=== PATIENT | male | born 1955 | race Caucasian/White ===

== ENCOUNTER 2020-06-04 10:32 | Inpatient (IN) | payer BC, MEDICARE ==
[2020-06-04] VITALS (7 sets, daily range): BP systolic 97–133; BP diastolic 69–95
[~2020-06-04] VITALS: Ht 172.7 cm; Wt 106.5 kg
--- NOTE | 2020-06-04 10:40 | NUR ---
PT DENIES FALL, STATES REMEBERS EVENTS TO LYING DOWN, DENIES HEAD PAIN OR NECK PAIN AT THIS X. NO ABRASIONS NOTED
[2020-06-04 11:03] LABS: BASOPHILS % (AUTO) 0 % (0-10); EOSINOPHILS % (AUTO) 0 % (0-10)
[2020-06-04 11:05] LABS: HEMATOCRIT 40 % (40-54); HEMOGLOBIN 13.4 g/dL (13.3-17.7); LYMPHOCYTES # (AUTO) 0.8 10^3/uL (1.0-4.0); LYMPHOCYTES % (AUTO) 13 % (12-44); MEAN CORPUSCULAR HEMOGLOBIN 31 pg (25-34); MEAN CORPUSCULAR HGB CONC 33 g/dL (32-36); MEAN CORPUSCULAR VOLUME 92 fL (80-99); MEAN PLATELET VOLUME 9.6 fL (9.0-12.2); MONOCYTES # (AUTO) 0.7 10^3/uL (0.0-1.0); MONOCYTES % (AUTO) 10 % (0-12); NEUTROPHILS # (AUTO) 4.8 10^3/uL (1.8-7.8); NEUTROPHILS % (AUTO) 76 % (42-75); PLATELET COUNT 136 10^3/uL (130-400); WHITE BLOOD COUNT 6.3 10^3/uL (4.3-11.0)
[2020-06-04] MEDS ORDERED: RT-ALBUTEROL INHALER HFA (VENTOLIN HFA) 18 GM IH ONE (11:05)
[2020-06-04] MEDS ORDERED: ACETAMINOPHEN 500 MG TAB (TYLENOL) ONE (11:05)
[2020-06-04] MEDS ORDERED: NS IV 1000 ML 1,000 ML ONE ×2 (11:05→12:57)
[2020-06-04] MEDS ORDERED: LACTATED RINGERS 1,000 ML IV ONE (11:08)
[2020-06-04 11:11] LABS: ALBUMIN 3.7 GM/DL (3.2-4.5); INR 1.2 (0.8-1.4); POTASSIUM 3.8 MMOL/L (3.6-5.0); PROTHROMBIN TIME PATIENT 15.6 SEC (12.2-14.7)
[2020-06-04 11:12] LABS: CALCIUM 8.3 MG/DL (8.5-10.1)
[2020-06-04 11:14] LABS: TOTAL PROTEIN 7.5 GM/DL (6.4-8.2)
[2020-06-04 11:15] LABS: BILIRUBIN,TOTAL 1.1 MG/DL (0.1-1.0)
[2020-06-04] MEDS ORDERED: ACETAMINOPHEN 500 MG TAB (TYLENOL) PO ONE (11:15)
[2020-06-04 11:17] LABS: CREATININE SERUM 1.84 MG/DL (0.60-1.30)
[2020-06-04 11:20] LABS: MAGNESIUM 1.8 MG/DL (1.6-2.4)
[2020-06-04] MEDS ORDERED: ASPIRIN 81 MG CHEW (CHILDREN'S ASA) PO ONE (12:15)
[2020-06-04] MEDS ORDERED: ENOXAPARIN 100 MG/1 ML (LOVENOX) SYR SC ONE (12:15)
[2020-06-04] MEDS ORDERED: cefTRIAXone FOR IV USE 1,000 MG in WATER (STERILE) FOR INJECTION 10 ML IV ONE (12:15)
--- NOTE | 2020-06-04 12:25 | ED General ---
General Chief Complaint: Cough/Cold/Flu Symptoms Stated Complaint: NECK/BACK PAIN;COUGH Nursing Triage Note: PT BROUGHT IN BY [facility] FROM WORK WITH COMPLAINT OF FEVER, COUGH. PT WAS FOUND LAYING ON PLAYGROUND BY SCHOOL STAFF. PT STATES HE HAS HAD A COUGH SINCE SUNDAY. 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 He was reportedly unresponsive at that time. The school nurse found him to have an oxygen saturation of 88 percent and a temperature of 103. EMS reports that his oxygen saturations were in the 90s for them and he was alert and conversational during their assessment. Patient had been using a ladder just prior to the incident. However, he reports that he lowered himself to the ground and is adamant that he did not fall. He denies any pain except back pain which she reports as recurrent and chronic. He is noted to have atrial fibrillation on the monitor. He is not aware of any history of atrial fibrillation. He denies any known health problems and he has not seen a doctor for many years. He takes no medications. 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 He is febrile and short of breath. EMS reported he had had nausea and vomiting throughout the week, but patient did not confirm this. Allergies and Home Medications Allergies Coded Allergies: No Known Drug Allergies (Unverified , 06/04/20) Patient Home Medication List Home Medication List Reviewed: Yes Review of Systems Review of Systems Constitutional: see HPI EENTM: no symptoms reported Respiratory: see HPI Cardiovascular: no symptoms reported Gastrointestinal: see HPI Genitourinary: no symptoms reported Musculoskeletal: see HPI Skin: no symptoms reported Psychiatric/Neurological: See HPI Hematologic/Lymphatic: No Symptoms Reported Immunological/Allergic: no symptoms reported Past A[place]oz[place]-Urznza-[place] Hx Past Med/Social Hx: Reviewed Nursing Past Med/Soc Hx Patient Social History Alcohol Use: Denies Use Recreational Drug Use: No Smoking Status: Never a Smoker Recent Foreign Travel: No Contact w/Someone Who Travel: No Recent Infectious Disease Expo: No Recent Hopitalizations: No Immunizations Up To Date Tetanus Booster (TDap): Unknown Seasonal Allergies Seasonal Allergies: No Past Medical History Surgeries: No Respiratory: No Cardiac: No Neurological: No Genitourinary: No Gastrointestinal: No Musculoskeletal: No Endocrine: No HEENT: No Cancer: No Psychosocial: No Integumentary: No Blood Disorders: No Physical Exam-Suspected Sepsis Physical Exam Vital Signs Vital Signs - First Documented 06/04/20 10:38 Temp 38.6 Pulse 85 Resp 32 B/P (MAP) 143/85 (104) Pulse Ox 89 O2 Delivery Nasal Cannula Capillary Refill : Less Than 3 Seconds Blood Pressure Mean: 104 Height, Weight, BMI Height: '" Weight: lbs. oz. 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 Norm as Tested Skin: normal color, diaphoresis (marjan is moist from prior diaphoresis) Focused Exam Reason for ruling out sepsis: Sepsis possible Possible Source: Pulmonary Lactate Level 06/04/20 10:55: Lactic Acid Level 1.27 Time of Focused Exam: 12:35 Respiratory: Accessory Muscle Use, Decreased Breath Sounds Cardiovascular: Regular Rate, Rhythm, No Edema, No Murmur, Normal Peripheral Pulses Capillary Refill: Less Than 3 Seconds Skin: normal color, warm/dry Lactic Acid Level Laboratory Tests Test 06/04/20 10:55 Lactic Acid Level 1.27 MMOL/L (0.50-2.00) Within 3hrs of presentation: Admin fluids, Admin ABX, Blood cultures prior to ABX's, Focus exam, Lactate level Progress/Results/Core Measures Suspected Sepsis Recent Fever Within 48 Hours: Yes Infection Criteria Present: None New/Unexplained Altered Menta: No Sepsis Screen: No Definite Risk SIRS Temperature: Pulse: 85 Respiratory Rate: 32 Laboratory Tests 06/04/20 10:45: White Blood Count 6.3 Blood Pressure 143 /85 Mean: 104 9/25/20 10:55: Lactic Acid Level 1.27 Laboratory Tests 06/04/20 10:45: Creatinine 1.84H, INR Comment 1.2, Platelet Count 136, Total Bilirubin 1.1H Results/Orders Lab Results Laboratory Tests Test 06/04/20 10:45 06/04/20 10:55 06/04/20 12:35 Range/Units White Blood Count 6.3 4.3-11.0 10^3/uL Red Blood Count 4.35 4.30-5.52 10^6/uL Hemoglobin 13.4 13.3-17.7 g/dL Hematocrit 40 40-54 % Mean Corpuscular Volume 92 80-99 fL Mean Corpuscular Hemoglobin 31 25-34 pg Mean Corpuscular Hemoglobin Concent 33 32-36 g/dL Red Cell Distribution Width 11.9 10.0-14.5 % Platelet Count 136 130-400 10^3/uL Mean Platelet Volume 9.6 9.0-12.2 fL Immature Granulocyte % (Auto) 1 % Neutrophils (%) (Auto) 76 H 42-75 % Lymphocytes (%) (Auto) 13 12-44 % Monocytes (%) (Auto) 10 0-12 % Eosinophils (%) (Auto) 0 0-10 % Basophils (%) (Auto) 0 0-10 % Neutrophils # (Auto) 4.8 1.8-7.8 10^3/uL Lymphocytes # (Auto) 0.8 L 1.0-4.0 10^3/uL Monocytes # (Auto) 0.7 0.0-1.0 10^3/uL Eosinophils # (Auto) 0.0 0.0-0.3 10^3/uL Basophils # (Auto) 0.0 0.0-0.1 10^3/uL Immature Granulocyte # (Auto) 0.0 0.0-0.1 10^3/uL Prothrombin Time 15.6 H 12.2-14.7 SEC INR Comment 1.2 0.8-1.4 Activated Partial Thromboplast Time 32 24-35 SEC D-Dimer 3.61 H 0.00-0.49 UG/ML Sodium Level 133 L 135-145 MMOL/L Potassium Level 3.8 3.6-5.0 MMOL/L Chloride Level 98 98-107 MMOL/L Carbon Dioxide Level 23 21-32 MMOL/L Anion Gap 12 5-14 MMOL/L Blood Urea Nitrogen 18 7-18 MG/DL Creatinine 1.84 H 0.60-1.30 MG/DL Estimat Glomerular Filtration Rate 37 BUN/Creatinine Ratio 10 Glucose Level 124 H 70-105 MG/DL Calcium Level 8.3 L 8.5-10.1 MG/DL Corrected Calcium 8.5 8.5-10.1 MG/DL Magnesium Level 1.8 1.6-2.4 MG/DL Total Bilirubin 1.1 H 0.1-1.0 MG/DL Aspartate Amino Transf (AST/SGOT) 75 H 5-34 U/L Alanine Aminotransferase (ALT/SGPT) 23 0-55 U/L Alkaline Phosphatase 44 40-136 U/L Lactate Dehydrogenase 316 H 125-220 U/L Troponin I 0.084 H <0.028 NG/ML C-Reactive Protein High Sensitivity 13.56 H 0.00-0.50 MG/DL B-Type Natriuretic Peptide 109.9 H <100.0 PG/ML Total Protein 7.5 6.4-8.2 GM/DL Albumin 3.7 3.2-4.5 GM/DL Procalcitonin 0.18 H <0.10 NG/ML Serum Alcohol < 10 <10 MG/DL Coronavirus 2019 (SHAHLA) Negative Negative Lactic Acid Level 1.27 0.50-2.00 MMOL/L Urine Color YELLOW Urine Clarity CLEAR Urine pH 5.5 5-9 Urine Specific [place] 1.025 H 1.016-1.022 Urine Protein 1+ H NEGATIVE Urine Glucose (UA) NEGATIVE NEGATIVE Urine Ketones TRACE H NEGATIVE Urine Nitrite NEGATIVE NEGATIVE Urine Bilirubin NEGATIVE NEGATIVE Urine Urobilinogen 1.0 < = 1.0 MG/DL Urine Leukocyte Esterase NEGATIVE NEGATIVE Urine RBC (Auto) 3+ H NEGATIVE Urine RBC 2-5 H /HPF Urine WBC RARE /HPF Urine Squamous Epithelial Cells RARE /HPF Urine Crystals PRESENT H /LPF Urine Amorphous Sediment MOD MAGNO URATES H /LPF Urine Bacteria TRACE /HPF Urine Casts PRESENT /LPF Urine Granular Casts RARE /LPF Urine Mucus NEGATIVE /LPF Urine Culture Indicated NO Urine Opiates Screen NEGATIVE NEGATIVE Urine Oxycodone Screen NEGATIVE NEGATIVE Urine Methadone Screen NEGATIVE NEGATIVE Urine Propoxyphene Screen NEGATIVE NEGATIVE Urine Barbiturates Screen NEGATIVE NEGATIVE Ur Tricyclic Antidepressants Screen NEGATIVE NEGATIVE Urine Phencyclidine Screen NEGATIVE NEGATIVE Urine Amphetamines Screen NEGATIVE NEGATIVE Urine Methamphetamines Screen NEGATIVE NEGATIVE Urine Benzodiazepines Screen NEGATIVE NEGATIVE Urine Cocaine Screen NEGATIVE NEGATIVE Urine Cannabinoids Screen NEGATIVE NEGATIVE Micro Results Microbiology 06/04/20 Influenza Types A,B Antigen (KECIA) - Final, Complete My Orders Orders - LORENE MITCHELL MD Cbc With Automated Diff (06/04/20 10:38) Comprehensive Metabolic Panel (06/04/20 10:38) Blood Culture (06/04/20 10:38) Sputum Culture (06/04/20 10:38) Urinalysis (06/04/20 10:38) Urine Culture (06/04/20 10:38) Protime With Inr (06/04/20 10:38) Partial Thromboplastin Time (06/04/20 10:38) Chest 1 View, Ap/Pa Only (06/04/20 10:38) Ed Iv/Invasive Line Start (06/04/20 10:38) Ed Iv/Invasive Line Start (06/04/20 10:38) Vital Signs Adult Sepsis Patie Q15M (06/04/20 10:38) O2 (06/04/20 10:38) Remove Rings In Anticipation O (06/04/20 10:38) Lactic Acid Analyzer (06/04/20 10:38) Procalcitonin (Pct) (06/04/20 10:38) Hs C Reactive Protein (06/04/20 10:38) LDH (06/04/20 10:38) Covid 19 Inhouse Test (06/04/20 10:38) Magnesium (06/04/20 10:40) Troponin I (06/04/20 10:40) Ekg Tracing (06/04/20 10:40) Monitor-Rhythm Ecg Trace Only (06/04/20 10:40) Acetaminophen Tablet (Tylenol Tablet) (06/04/20 11:15) Albuterol Inhaler (Ventolin Hfa) (06/04/20 14:00) Lactated Ringers (Lr 1000 Ml Iv Solution (06/04/20 11:08) Influenza A And B Antigens (06/04/20 11:08) Ns Iv 1000 Ml (Sodium Chloride 0.9%) (06/04/20 11:05) Acetaminophen Tablet (Tylenol Tablet) (06/04/20 11:05) Albuterol Inhaler (Ventolin Hfa) (06/04/20 11:05) BNP (06/04/20 11:19) Coronavirus Sars-Cov-2 So 2018 (06/04/20 11:26) Fibrin Degradation Products (06/04/20 11:47) Alcohol (06/04/20 11:47) Drug Screen Stat (Urine) (06/04/20 11:47) Ceftriaxone For Iv Use (Rocephin For I (06/04/20 12:15) Aspirin Chewable Tablet (Baby Aspirin Ch (06/04/20 12:15) Enoxaparin Injection (Lovenox Injection) (06/04/20 12:15) Medications Given in ED Current Medications Medications Dose Ordered Sig/Scotty Route Start Time Stop Time Status Last Admin Dose Admin Acetaminophen 1,000 mg ONCE ONCE PO 06/04/20 11:15 06/04/20 11:16 DC 06/04/20 11:12 1,000 MG Aspirin 324 mg ONCE ONCE PO 06/04/20 12:15 06/04/20 12:16 DC 06/04/20 12:37 324 MG Ceftriaxone Sodium 1000 mg/ Sterile Water 10 ml @ 200 mls/hr ONCE ONCE IV 06/04/20 12:15 06/04/20 12:17 DC 06/04/20 12:37 200 MLS/HR Enoxaparin Sodium 100 mg ONCE ONCE SC 06/04/20 12:15 06/04/20 12:16 DC 06/04/20 12:37 100 MG Lactated Ringer's 1,000 ml @ 0 mls/hr Q0M ONCE IV 06/04/20 11:08 06/04/20 11:10 DC 06/04/20 11:13 1,000 MLS/HR Vital Signs/I&O 06/04/20 06/04/20 10:38 10:38 Temp 38.6 Pulse 85 Resp 32 B/P (MAP) 143/85 (104) Pulse Ox 89 O2 Delivery Nasal Cannula Room Air Capillary Refill : Less Than 3 Seconds Blood Pressure Mean: 104 Progress Note : Progress Note High-volume fluids were not administered as patient is under investigation for COVID-19 and high volume fluid administration could be harmful in this scenario. Rapid COVID-19 test was negative and the backup test is pending. Severe sepsis or septic shock is not suspected at this time since per calcitonin, lactic acid, pressure, and WBC are normal. Patient was treated with Rocephin as a precaution. Oxygen saturation was maintained by nasal cannula. Albuterol MDI was administered but was not very helpful. A liter of IV fluid was administered. Troponin was elevated. Case was discussed with Dr. Woodson, Dr. Zhu, and Dr. Oden. Lovenox was administered because of significantly e levated d-dimer. Creatinine prohibited CT angiogram for evaluation of PE. Patients is Jackie Jackson [phone]. She was updated from the ER. ECG Initial ECG Impression Date: Jun 04, 2020 Initial ECG Impression Time: 10:50 Initial ECG Rate: 83 Initial ECG Rhythm: A Fib/Flutter Comment Atrial fibrillation with PVC. No ST elevation or depression. Rate controlled. Diagnostic Imaging Diagonstic Imaging: Xray Plain Films/CT/US/NM/MRI: chest Comments Chest x-ray viewed by me and report reviewed. See report below: NAME: CAMMY JACKSON [facility] REC#: [id number] PT STATUS: REG ER : 1955 PHYSICIAN: LORENE MITCHELL MD ADMIT DATE: 06/04/20/ER Draft Date of Exam:06/04/20 CHEST 1 VIEW, AP/PA ONLY INDICATION: Fever and cough. COMPARISON: None. FINDINGS: Single frontal radiographic view of the chest was obtained and demonstrates mild cardiomegaly. Pulmonary vasculature is within normal limits. There is dense consolidation of the right lower lung field. Left lung is clear. There is no large effusion or pneumothorax. Osseous structures show no acute abnormalities. IMPRESSION: 1. Infiltrate within the right lower lung consistent with pneumonia. Follow-up to resolution is recommended. 2. Mild cardiomegaly. Dictated on workstation # [id number] Dict: 06/04/20 1232 Trans: 06/04/20 1235 [id number] [id number] Interpreted by: DICK GARCIA MD Departure Communication (Admissions) Time/Spoke to Admitting Phy: 11:40 Dr. Kandice Oden 11:45 Dr. Zhu 12:10 Impression Primary Impression: New onset atrial fibrillation Additional Impressions: Syncope Qualified Codes: R55 - Syncope and collapse Pneumonia Qualified Codes: J18.9 - Pneumonia, unspecified organism Elevated troponin Renal failure Qualified Codes: N19 - Unspecified kidney failure Person under investigation for COVID-19 Disposition: 09 ADMITTED INPATIENT Condition: Stable Admissions Decision to Admit Reason: Admit from ER (General) Decision to Admit/Date: Jun 04, 2020 Time/Decision to Admit Time: 10:45 LORENE MITCHELL MD Jun 04, 2020 12:25
--- NOTE | 2020-06-04 12:36 | Diagnostic Imaging Report ---
INDICATION: Fever and cough. COMPARISON: None. FINDINGS: Single frontal radiographic view of the chest was obtained and demonstrates mild cardiomegaly. Pulmonary vasculature is within normal limits. There is dense consolidation of the right lower lung field. Left lung is clear. There is no large effusion or pneumothorax. Osseous structures show no acute abnormalities. IMPRESSION: 1. Infiltrate within the right lower lung consistent with pneumonia. Follow-up to resolution is recommended. 2. Mild cardiomegaly. Dictated by: Dictated on workstation # [id number]
[2020-06-04 12:50] LABS: BILIRUBIN,URINE NEGATIVE (NEGATIVE); CLARITY,URINE CLEAR; COLOR,URINE YELLOW; GLUCOSE, URINE (UA) NEGATIVE (NEGATIVE); KETONES,URINE TRACE (NEGATIVE); LEUKOCYTE ESTERASE ,URINE NEGATIVE (NEGATIVE); NITRITE,URINE NEGATIVE (NEGATIVE); PH,URINE 5.5 (5-9); PROTEIN,URINE 1+ (NEGATIVE)
[2020-06-04 13:09] LABS: AMPHETAMINE SCREEN, URINE NEGATIVE (NEGATIVE); BARBITURATE SCREEN URINE NEGATIVE (NEGATIVE); BENZODIAZEPINES SCREEN URINE NEGATIVE (NEGATIVE); CANNABINOID SCREEN, URINE NEGATIVE (NEGATIVE); COCAINE SCREEN URINE NEGATIVE (NEGATIVE); METHADONE STAT NEGATIVE (NEGATIVE); METHAMPHETAMINE SCREEN URINE S NEGATIVE (NEGATIVE); OPIATE SCREEN URINE NEGATIVE (NEGATIVE); OXYCODONE STAT NEGATIVE (NEGATIVE); PROPOXYPHENE STAT NEGATIVE (NEGATIVE); TRICYCLIC ANTIDEPRESSANTS SCRE NEGATIVE (NEGATIVE)
[2020-06-04 13:12] LABS: BACTERIA,URINE TRACE /HPF; WBC,URINE RARE /HPF
[2020-06-04 13:13] LABS: AMORPHOUS SEDIMENT,UR MOD AMOR URATES /LPF; GRANULAR CASTS,URINE RARE /LPF; SQUAMOUS EPITHELIAL CELL,UR RARE /HPF
[2020-06-04] MEDS ORDERED: AZITHROMYCIN 500 MG/NS 250 ML IVPB IV NR ×2 (13:15)
--- NOTE | 2020-06-04 13:23 | NUR ---
CLARIFIED LOVENOX (ENOXAPARIN) DOSING ESTIMATED CRCL IS GREATER THAN 30, FULL DOSE/TREATMENT DOSE CHANGED TO 100MG SQ BID.
[2020-06-04] MEDS ORDERED: NS IV 1000 ML 1,000 ML IV SCH (13:30)
[2020-06-04] MEDS ORDERED: RT-ALBUTEROL INHALER HFA (VENTOLIN HFA) 18 GM IH PRN (13:30)
[2020-06-04] MEDS ORDERED: ONDANSETRON 4 MG/2 ML (SDV) Z0FRAN IV PRN (13:30)
[2020-06-04] MEDS ORDERED: ACETAMINOPHEN 500 MG TAB (TYLENOL) PO PRN (13:30)
--- NOTE | 2020-06-04 13:46 | Pulmonary Consultation ---
History of Present Illness History of Present Illness Date Seen by Provider: Jun 04, 2020 Time Seen by Provider: 13:41 Date of Admission Allergies and Home Medications Allergies Coded Allergies: No Known Drug Allergies (Unverified , 06/04/20) Past Utxcbwn-Vxpaad-Ypshnv Hx Past Med/Social Hx: Reviewed Nursing Past Med/Soc Hx Patient Social History Alcohol Use: Denies Use Recreational Drug Use: No Smoking Status: Never a Smoker Recent Foreign Travel: No Contact w/Someone Who Travel: No Recent Infectious Disease Expo: No Recent Hopitalizations: No Immunizations Up To Date Tetanus Booster (TDap): Unknown Seasonal Allergies Seasonal Allergies: No Past Medical History Surgeries: No Respiratory: No Cardiac: No Neurological: No Genitourinary: No Gastrointestinal: No Musculoskeletal: No Endocrine: No HEENT: No Cancer: No Psychosocial: No Integumentary: No Blood Disorders: No Review of Systems Time Seen by Provider: 13:50 Sepsis Event Evaluation Height, Weight, BMI Height: '" Weight: lbs. oz. kg; 35.00 BMI Method: Exam Exam Vital Signs Date Time Temp Pulse Resp B/P (MAP) Pulse Ox O2 Delivery O2 Flow Rate FiO2 06/04/20 10:38 38.6 85 32 143/85 (104) 89 Room Air 06/04/20 10:38 Nasal Cannula Height & Weight Height: '" Weight: lbs. oz. kg; 35.00 BMI Method: General Appearance: WD/WN, Mild Distress (respiratory) HEENT: PERRL/EOMI, Normal ENT Inspection, Other (oropharynx dry) Neck: Normal Inspection Respiratory: Accessory Muscle Use, Decreased Breath Sounds Cardiovascular: Regular Rate, Rhythm, No Edema, No Murmur, Normal Peripheral Pulses Capillary Refill: Less Than 3 Seconds Extremity: Normal Inspection, Non Tender, No Pedal Edema Neurologic/Psychiatric: Alert, Oriented x3, No Motor/Sensory Deficits, Normal Mood/Affect, staff internist office based only II-XII Norm as Tested Results Lab Laboratory Tests 06/04/20 10:45 Assessment/Plan Assessment/Plan s/p syncope r/o PE -Check bilateral dopplers -Continue therapeutic dose lovenox -Change IVF to LR at 150 = Acute Afib with elevated troponin -Cardiology Pneumonia with dehydration -IVF -Abx -David cultures pending -Influenza is negative -Check urine strep and leginonella ag Acute renal failure prerenal -IVF -Monitor Hyponatremia -Monitor JESUS GEE DO Jun 04, 2020 13:46
[2020-06-04] MEDS ORDERED: LACTATED RINGERS 1,000 ML IV SCH (14:00)
[2020-06-04] MEDS ORDERED: RT-ALBUTEROL INHALER HFA (VENTOLIN HFA) 18 GM IH SCH (14:00)
--- NOTE | 2020-06-04 14:46 | History & Physical-Hospitalist ---
History of Present Illness HPI/Chief Complaint Pt is a 65yoCM with no known PMH who presented to the ER due to syncope. He states that he was up on a ladder trying to get a hat from a roof. He believes he got off the ladder and laid himself down (per what he reported to the ER). When I asked him about this he was unsure if he laid himself down or not. He does not recall much. He denies any prodomal symptoms. He states he has had a cough for a week but has been going to work despite this. 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 He was found to have a temperature of 103 on arrival. CXR revealed RML pneumonia. Source: patient Date Seen 06/04/20 Time Seen by a Provider: 14:41 Attending Physician Florencia Olivo MD PCP No,Local Physician Referring Physician Date of Admission Jun 04, 2020 at 12:43 Home Medications & Allergies Home Medications Reviewed patient Home Medication Reconciliation performed by pharmacy medication reconciliations licensed veterinary technician and/or nursing. Patients Allergies have been reviewed. Allergies Allergies Coded Allergies No Known Drug Allergies (Unverified06/04/20) Past Zljfewc-Rhdaji-Mnxjgi Hx Past Med/Social Hx: Reviewed Nursing Past Med/Soc Hx Patient Social History Employed/Student: employed Alcohol Use: Denies Use Recreational Drug Use: No Smoking Status: Never a Smoker Recent Foreign Travel: No Contact w/other who traveled: No Recent Hopitalizations: No Recent Infectious Disease Expo: No Immunizations Up To Date Tetanus Booster (TDap): Unknown Seasonal Allergies Seasonal Allergies: No Past Medical History History of Blood Disorders: No Family History Reviewed Nursing Family Hx No Pertinent Family Hx Review of Systems Constitutional: fever, malaise EENTM: No hoarseness, No nose congestion Respiratory: cough; No phlegm, No short of breath Cardiovascular: No chest pain, No palpitations; syncope Gastrointestinal: No abdominal pain; loss of appetite; No nausea, No vomiting Genitourinary: No dysuria, No frequency Musculoskeletal: back pain (chronic back pain) Skin: no symptoms reported Psychiatric/Neurological: No Symptoms Reported Physical Exam Physical Exam Vital Signs Vital Signs - First Documented 06/04/20 06/04/20 10:38 13:30 Temp 38.6 Pulse 85 Resp 32 B/P (MAP) 143/85 (104) Pulse Ox 89 O2 Delivery Nasal Cannula O2 Flow Rate 2.00 Capillary Refill : Less Than 3 Seconds Height, Weight, BMI Height: '" Weight: lbs. oz. kg; 35.00 BMI Method: General Appearance: No Apparent Distress, Chronically ill, Obese HEENT: PERRL/EOMI, Moist Mucous Membranes; No Scleral Icterus (L), No Scleral Icterus (R) Neck: Normal Inspection, Supple; No JVD Respiratory: Lungs Clear, No Respiratory Distress Cardiovascular: No JVD, No Murmur, Irregularly Irregular Gastrointestinal: Normal Bowel Sounds, Non Tender Extremity: Normal Capillary Refill, No Calf Tenderness, No Pedal Edema Neurologic/Psychiatric: Alert, Oriented x3, Normal Mood/Affect Results Results/Procedures Labs Patient resulted labs reviewed. Imaging: Reviewed Imaging Report [facility] [place], [place] NAME: CAMMY JACKSON [facility] REC#: [id number] PT STATUS: REG ER : 1955 PHYSICIAN: LORENE MITCHELL MD ADMIT DATE: 06/04/20/ER Draft Date of Exam:06/04/20 CHEST 1 VIEW, AP/PA ONLY INDICATION: Fever and cough. COMPARISON: None. FINDINGS: Single frontal radiographic view of the chest was obtained and demonstrates mild cardiomegaly. Pulmonary vasculature is within normal limits. There is dense consolidation of the right lower lung field. Left lung is clear. There is no large effusion or pneumothorax. Osseous structures show no acute abnormalities. IMPRESSION: 1. Infiltrate within the right lower lung consistent with pneumonia. Follow-up to resolution is recommended. 2. Mild cardiomegaly. Dictated on workstation # [id number] Dict: 06/04/20 1232 Trans: 06/04/20 1235 AS6 [id number] Interpreted by: DICK GARCIA MD Electronically signed by: Assessment/Plan Admission Diagnosis Sepsis Admission Status: Inpatient Order (span 2 midnights) Assessment and Plan Sepsis CAP- RML present on arrival Continue IV abx Await cultures CXR shows RML Urine strep and legionella COVID pending Syncope Unclear details of fall Discussed with ER doctor and will get trauma imaging- denied any pain to me but did report some to ER doctor Elevated d-dimer CTA unable to be performed due to creatinine Dopplers ordered Atrial Fibrillation Elevated troponin New onset Lovenox once CTs are clear Cardiology consulted, appreciate recs Transaminitis Very mild- Trend, unclear etiology DVT ppx: Lovenox as able Clinical Quality Measures DVT/VTE Risk/Contraindication: Risk Factor Score Per Nursin RFS Level Per Nursing on Admit: 3=High FLORENCIA OLIVO MD Jun 04, 2020 14:46
--- NOTE | 2020-06-04 15:39 | Diagnostic Imaging Report ---
PROCEDURE: US Venous Lower Ext [place]. INDICATION: New onset atrial fibrillation, leg edema. TECHNIQUE: Multiple real-time grayscale images were obtained over the lower extremities in various projections, bilaterally. Additional duplex Doppler and color Doppler images were also obtained. CORRELATION STUDY: None FINDINGS: Color and grayscale sonographic images demonstrate no intraluminal defect within the visualized portion of the common femoral, superficial femoral and/or popliteal veins to suggest thrombus formation. These vessels demonstrate normal response to compression and augmentation. No soft tissue fluid collection. IMPRESSION: 1. Negative for deep venous thrombosis of either leg. Dictated by: Dictated on workstation # [id number]
--- NOTE | 2020-06-04 16:00 | NUR ---
RECEIVED CALL FROM DR. OLIVO REGARDING PATIENT CT RESULTS. DR. OLIVO STATED SHE IS INITIATING A TRANSFER TO [facility] R/T PATIENT BLEED NOTED SO SUBARACNOID AREA. DR. OLIVO STATED TO HOLD ALL LOVENOX AT THIS TIME. INFORMED THAT PATIENT HAD RECEIVED A DOSE IN ER.
--- NOTE | 2020-06-04 16:03 | Consultation-Cardiology ---
HPI-Cardiology Cardiology Consultation: Date of Consultation 06/04/20 Date of Admission Attending Physician Elisha Woodson MD Admitting Physician No,Local Physician Consulting Physician Starr ZHU MD HPI: Time Seen by a Provider: 16:02 MBJ-Atakli-Uhumpm Hx Patient Social History Employed/Student: employed Alcohol Use: Denies Use Recreational Drug Use: No Smoking Status: Never a Smoker Recent Foreign Travel: No Recent Infectious Disease Expo: No Immunizations Up To Date Tetanus Booster (TDap): Unknown Past Medical History PMH As described under Assessment. Allergies and Home Medications Allergies Coded Allergies: No Known Drug Allergies (Unverified , 06/04/20) Physical Exam-Cardiology Physical Exam Vital Signs/I&O 06/04/20 06/04/20 06/04/20 06/04/20 10:38 10:38 13:15 13:30 Temp 38.6 38.6 Pulse 85 85 84 Resp 32 32 B/P (MAP) 143/85 (104) 143/85 (104) 131/73 (92) Pulse Ox 89 89 94 O2 Delivery Nasal Cannula Room Air Nasal Cannula Nasal Cannula O2 Flow Rate 2.00 06/04/20 14:00 Pulse 90 B/P (MAP) 133/89 (104) Pulse Ox 99 O2 Delivery Nasal Cannula O2 Flow Rate 2.00 Capillary Refill : Less Than 3 Seconds Skin: normal color, warm/dry Data Review Labs Laboratory Tests 06/04/20 10:45: White Blood Count 6.3, Red Blood Count 4.35, Hemoglobin 13.4, Hematocrit 40, Mean Corpuscular Volume 92, Mean Corpuscular Hemoglobin 31, Mean Corpuscular Hemoglobin Concent 33, Red Cell Distribution Width 11.9, Platelet Count 136, Mean Platelet Volume 9.6, Immature Granulocyte % (Auto) 1, Neutrophils (%) (Auto) 76H, Lymphocytes (%) (Auto) 13, Monocytes (%) (Auto) 10, Eosinophils (%) (Auto) 0, Basophils (%) (Auto) 0, Neutrophils # (Auto) 4.8, Lymphocytes # (Auto) 0.8L, Monocytes # (Auto) 0.7, Eosinophils # (Auto) 0.0, Basophils # (Auto) 0.0, Immature Granulocyte # (Auto) 0.0, Prothrombin Time 15.6H, INR Comment 1.2, Activated Partial Thromboplast Time 32, D-Dimer 3.61H, Sodium Level 133L, Potassium Level 3.8, Chloride Level 98, Carbon Dioxide Level 23, Anion Gap 12, Blood Urea Nitrogen 18, Creatinine 1.84H, Estimat Glomerular Filtration Rate 37, BUN/Creatinine Ratio 10, Glucose Level 124H, Calcium Level 8.3L, Corrected Calcium 8.5, Magnesium Level 1.8, Total Bilirubin 1.1H, Aspartate Amino Transf (AST/SGOT) 75H, Alanine Aminotransferase (ALT/SGPT) 23, Alkaline Phosphatase 44, Lactate Dehydrogenase 316H, Troponin I 0.084H, C-Reactive Protein High Sensitivity 13.56H, B-Type Natriuretic Peptide 109.9H, Total Protein 7.5, Albumin 3.7, Procalcitonin 0.18H, Serum Alcohol < 10, Coronavirus 2019 ([facility]) Negative 06/04/20 10:55: Lactic Acid Level 1.27 06/04/20 12:35: Urine Color YELLOW, Urine Clarity CLEAR, Urine pH 5.5, Urine Specific Bryant 1.025H, Urine Protein 1+H, Urine Glucose (UA) NEGATIVE, Urine Ketones TRACEH, Urine Nitrite NEGATIVE, Urine Bilirubin NEGATIVE, Urine Urobilinogen 1.0, Urine Leukocyte Esterase NEGATIVE, Urine RBC (Auto) 3+H, Urine RBC 2-5H, Urine WBC RARE, Urine Squamous Epithelial Cells RARE, Urine Crystals PRESENTH, Urine Amorphous Sediment MOD MAGNO URATESH, Urine Bacteria TRACE, Urine Casts PRESENT, Urine Granular Casts RARE, Urine Mucus NEGATIVE, Urine Culture Indicated NO, Urine Opiates Screen NEGATIVE, Urine Oxycodone Screen NEGATIVE, Urine Methadone Screen NEGATIVE, Urine Propoxyphene Screen NEGATIVE, Urine Barbiturates Screen NEGATIVE, Ur Tricyclic Antidepressants Screen NEGATIVE, Urine Phencyclidine Screen NEGATIVE, Urine Amphetamines Screen NEGATIVE, Urine Methamphetamines Screen NEGATIVE, Urine Benzodiazepines Screen NEGATIVE, Urine Cocaine Screen NEGATIVE, Urine Cannabinoids Screen NEGATIVE Microbiology 06/04/20 Influenza Types A,B Antigen ([facility]) - Final, Complete A/P-Cardiology Plan Thank you for your consultation. Please call me if you have any questions. Arelis Zhu MD, FACP, FACC, FSCAI, FHRS, CCDS Interventional Cardiology Cardiac Electrophysiology Vascular Medicine and Endovascular Interventions Clinical Quality Measures DVT/VTE Risk/Contraindication: Risk Factor Score Per Nursin RFS Level Per Nursing on Admit: 3=High Starr ZHU MD Jun 04, 2020 16:03
--- NOTE | 2020-06-04 16:19 | Diagnostic Imaging Report ---
PROCEDURE: CT chest, abdomen, and pelvis without contrast. TECHNIQUE: Multiple contiguous axial images were obtained through the chest, abdomen, and pelvis without the use of intravenous contrast. Auto Exposure Controls were utilized during the CT exam to meet ALARA standards for radiation dose reduction. INDICATION: Trauma, fall from ladder. COMPARISON: None available. FINDINGS: CHEST: Assessment for vascular injury is not possible without IV contrast. No features of mediastinal hemorrhage. No supraclavicular or axillary lymphadenopathy. No mediastinal or juxtaphrenic lymphadenopathy. No pleural effusion or pneumothorax. There is subtotal consolidations and groundglass opacities within the right middle lobe. In the right hilar region there is some soft tissue thickening that is suboptimally evaluated with IV contrast. Left lower lobe 5 mm pulmonary nodule. Right lower lobe 5 cm pulmonary nodule. No concerning focal osseous lesions. Specifically, no rib fracture. Sternum is intact. No fracture in the scapula. Visualized aspects of the clavicles are intact. ABDOMEN AND PELVIS: Assessment for visceral injury is suboptimal without IV contrast. Allowing for this, the liver and spleen are grossly normal. No radiopaque gallstones. Diffuse fatty infiltration of the pancreas. No adrenal mass. Exophytic cyst arises from the lower pole left kidney measures up to 5 cm. No renal or ureteral calculi. No features of renal laceration. Urinary bladder is not ruptured. Prostate is normal in size. No free intraperitoneal air or fluid. No acute fracture within the proximal femurs or pelvis. No fracture of the lumbar spine. IMPRESSION: 1. By noncontrast imaging, no features of acute traumatic injury in the chest, abdomen or pelvis. 2. Right middle lobe central consolidations are most likely due to pneumonia. Advise followup CT chest with IV contrast in 2 weeks after appropriate medical management to ensure resolution and exclude underlying malignancy. Dictated by: Dictated on workstation # [id number]
--- NOTE | 2020-06-04 16:22 | Diagnostic Imaging Report ---
Clinical indication: Patient found down. Exam: Head CT without IV contrast with coronal and sagittal reformatted images. Axial CT scan of the cervical spine with sagittal and coronal reformations. Auto Exposure Controls were utilized during the CT exam to meet ALARA standards for radiation dose reduction. Comparison: None. Findings: Head CT: There is concern for very subtle hyperdense subarachnoid blood involving the basilar posterior temporal occipital regions bilaterally. There is slight thickening of the right tentorium compared to the left concerning for minimal hyperdense subarachnoid blood. There are focal areas of low-attenuation white matter changes involving both cerebral hemispheres, likely representing chronic small vessel ischemic disease. The brain parenchymal volume appears appropriate for patient's age. There is no hydrocephalus. There is no intraventricular blood. The extracranial soft tissue, skull, and orbits are unremarkable. Paranasal sinuses and mastoid air cells are clear. Cervical spine: There is no acute cervical spine fracture dislocation. There is cervical spine vertebral body spurs seen anteriorly. There is no significant bony central canal or neural foramen narrowing. Soft tissue structures show no significant abnormality. IMPRESSION: 1: There is minimal subarachnoid blood involving the basilar portions of the posterior temporal lobes and occipital lobes bilaterally. 2: There is minimal subdural blood along the right tentorium. 3: There is no intraventricular blood or intraparenchymal blood seen on this exam. There is no skull fracture. 4: There is no acute fracture or dislocation. Results of this report was discussed with Dr. Elisha Woodson via the telephone on 06/04/2020 at 1615 hours. Dictated by: Dictated on workstation # [id number]
--- NOTE | 2020-06-04 16:30 | NUR ---
THIS RN SPOKE WITH PATIENT MARIO. INFORMED MARIO THAT DR. OLIVO WOULD BE CALLING TO SPEAK WITH HER AND AT THE SAME TIME, TO INFORM OF CURRENT SITUATION. VOICED UNDERSTANDING ET THANKED THIS RN.
--- NOTE | 2020-06-04 17:05 | Short Stay Summary-Hospitalist ---
History of Present Illness HPI/Chief Complaint Pt is a 65yoCM with no known PMH who presented to the ER due to syncope. He states that he was up on a ladder trying to get a hat from a roof. He believes he got off the ladder and laid himself down (per what he reported to the ER multiple times). When I asked him about this he was unsure if he laid himself down or not. He does not recall much about the event but is oriented to the current situation and the morning before today. He denies any prodomal symptoms to his syncope. He states he has had a cough for a week but has been going to work despite this. 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 He was found to have a temperature of 103 on arrival. CXR revealed RML pneumonia. He was admitted to the ICU for further management. Source: patient Date Seen 06/04/20 Time Seen by a Provider: 17:05 Attending Physician Florencia Woodson MD PCP No,Local Physician Referring Physician Date of Admission Jun 04, 2020 at 12:43 Home Medications & Allergies Home Medications Reviewed patient Home Medication Reconciliation performed by pharmacy medication reconciliations chief technician x ray and/or nursing. Patients Allergies have been reviewed. Allergies Allergies Coded Allergies No Known Drug Allergies (Unverified06/04/20) Past Mfqgplb-Qmnfiv-Cusxkq Hx Past Med/Social Hx: Reviewed Nursing Past Med/Soc Hx Patient Social History Marrital Status: Employed/Student: employed Alcohol Use: Denies Use Recreational Drug Use: No Smoking Status: Never a Smoker Recent Foreign Travel: No Contact w/other who traveled: No Recent Hopitalizations: No Recent Infectious Disease Expo: No Immunizations Up To Date Tetanus Booster (TDap): Unknown Seasonal Allergies Seasonal Allergies: No Past Medical History History of Blood Disorders: No Family History Reviewed Nursing Family Hx No Pertinent Family Hx Review of Systems Constitutional: No chills; fever EENTM: no symptoms reported Respiratory: cough; No dyspnea on exertion, No short of breath Cardiovascular: No chest pain, No edema, No palpitations; syncope Gastrointestinal: no symptoms reported Genitourinary: no symptoms reported Musculoskeletal: no symptoms reported Skin: no symptoms reported Psychiatric/Neurological: Denies Headache Physical Exam Physical Exam Vital Signs Vital Signs - First Documented 06/04/20 06/04/20 10:38 13:30 Temp 38.6 Pulse 85 Resp 32 B/P (MAP) 143/85 (104) Pulse Ox 89 O2 Delivery Nasal Cannula O2 Flow Rate 2.00 Capillary Refill : Less Than 3 Seconds Height, Weight, BMI Height: '" Weight: lbs. oz. kg; 35.00 BMI Method: General Appearance: No Apparent Distress, Chronically ill, Obese HEENT: PERRL/EOMI, Moist Mucous Membranes; No Scleral Icterus (L), No Scleral Icterus (R) Neck: Normal Inspection, Supple; No JVD Respiratory: Lungs Clear, No Accessory Muscle Use, No Respiratory Distress Cardiovascular: No JVD, No Murmur, Irregularly Irregular Gastrointestinal: Normal Bowel Sounds, Non Tender, Soft; No Distended, No Guarding Extremity: Normal Capillary Refill, No Calf Tenderness, No Pedal Edema Neurologic/Psychiatric: Alert, Oriented x3, No Motor/Sensory Deficits, Normal Mood/Affect; No Aphasia, No Facial Droop, No Motor Weakness, No Sensory Deficit Skin: Normal Color, Warm/Dry Results Results/Procedures Labs Patient resulted labs reviewed. Imaging: Reviewed Imaging Report, Discussed Imaging with Radiologist Imaging [facility], [place] NAME: CAMMY JACKSON [facility] REC#: [id number] PT STATUS: ADM IN : 1955 PHYSICIAN: FLORENCIA WOODSON MD ADMIT DATE: 06/04/20/ICU Signed Date of Exam:06/04/20 CT HEAD/CERVICAL SPINE WO Clinical indication: Patient found down. Exam: Head CT without IV contrast with coronal and sagittal reformatted images. Axial CT scan of the cervical spine with sagittal and coronal reformations. Auto Exposure Controls were utilized during the CT exam to meet ALARA standards for radiation dose reduction. Comparison: None. Findings: Head CT: There is concern for very subtle hyperdense subarachnoid blood involving the basilar posterior temporal occipital regions bilaterally. There is slight thickening of the right tentorium compared to the left concerning for minimal hyperdense subarachnoid blood. There are focal areas of low-attenuation white matter changes involving both cerebral hemispheres, likely representing chronic small vessel ischemic disease. The brain parenchymal volume appears appropriate for patient's age. There is no hydrocephalus. There is no intraventricular blood. The extracranial soft tissue, skull, and orbits are unremarkable. Paranasal sinuses and mastoid air cells are clear. Cervical spine: There is no acute cervical spine fracture dislocation. There is cervical spine vertebral body spurs seen anteriorly. There is no significant bony central canal or neural foramen narrowing. Soft tissue structures show no significant abnormality. IMPRESSION: 1: There is minimal subarachnoid blood involving the basilar portions of the posterior temporal lobes and occipital lobes bilaterally. 2: There is minimal subdural blood along the right tentorium. 3: There is no intraventricular blood or intraparenchymal blood seen on this exam. There is no skull fracture. 4: There is no acute fracture or dislocation. Results of this report was discussed with Dr. Florencia Woodson via the telephone on 06/04/2020 at 1615 hours. Dictated by: Dictated on workstation # [id number] Dict: 06/04/20 1559 Trans: 06/04/20 1725 CV [id number] Interpreted by: GENE ZUNIGA MD Electronically signed by: GENE ZUNIGA MD 06/04/20 1725 [facility], [place] NAME: CAMMY JACKSON [facility] REC#: [id number] PT STATUS: ADM IN : 1955 PHYSICIAN: FLORENCIA WOODSON MD ADMIT DATE: 06/04/20/ICU Signed Date of Exam:06/04/20 CT CHEST/ABDOMEN/PELVIS WO PROCEDURE: CT chest, abdomen, and pelvis without contrast. TECHNIQUE: Multiple contiguous axial images were obtained through the chest, abdomen, and pelvis without the use of intravenous contrast. Auto Exposure Controls were utilized during the CT exam to meet ALARA standards for radiation dose reduction. INDICATION: Trauma, fall from ladder. COMPARISON: None available. FINDINGS: CHEST: Assessment for vascular injury is not possible without IV contrast. No features of mediastinal hemorrhage. No supraclavicular or axillary lymphadenopathy. No mediastinal or juxtaphrenic lymphadenopathy. No pleural effusion or pneumothorax. There is subtotal consolidations and groundglass opacities within the right middle lobe. In the right hilar region there is some soft tissue thickening that is suboptimally evaluated with IV contrast. Left lower lobe 5 mm pulmonary nodule. Right lower lobe 5 cm pulmonary nodule. No concerning focal osseous lesions. Specifically, no rib fracture. Sternum is intact. No fracture in the scapula. Visualized aspects of the clavicles are intact. ABDOMEN AND PELVIS: Assessment for visceral injury is suboptimal without IV contrast. Allowing for this, the liver and spleen are grossly normal. No radiopaque gallstones. Diffuse fatty infiltration of the pancreas. No adrenal mass. Exophytic cyst arises from the lower pole left kidney measures up to 5 cm. No renal or ureteral calculi. No features of renal laceration. Urinary bladder is not ruptured. Prostate is normal in size. No free intraperitoneal air or fluid. No acute fracture within the proximal femurs or pelvis. No fracture of the lumbar spine. IMPRESSION: 1. By noncontrast imaging, no features of acute traumatic injury in the chest, abdomen or pelvis. 2. Right middle lobe central consolidations are most likely due to pneumonia. Advise followup CT chest with IV contrast in 2 weeks after appropriate medical management to ensure resolution and exclude underlying malignancy. Dictated by: Dictated on workstation # [id number] Dict: 06/04/20 1610 Trans: 06/04/20 1700 CV [id number] Interpreted by: XIMENA MUKHERJEE MD Electronically signed by: XIMENA MUKHERJEE MD 06/04/20 170 [facility], [place] NAME: CAMMY JACKSON [facility] REC#: [id number] PT STATUS: ADM IN : 1955 PHYSICIAN: LORENE MITCHELL MD ADMIT DATE: 06/04/20/ICU Signed Date of Exam:06/04/20 CHEST 1 VIEW, AP/PA ONLY INDICATION: Fever and cough. COMPARISON: None. FINDINGS: Single frontal radiographic view of the chest was obtained and demonstrates mild cardiomegaly. Pulmonary vasculature is within normal limits. There is dense consolidation of the right lower lung field. Left lung is clear. There is no large effusion or pneumothorax. Osseous structures show no acute abnormalities. IMPRESSION: 1. Infiltrate within the right lower lung consistent with pneumonia. Follow-up to resolution is recommended. 2. Mild cardiomegaly. Dictated by: Dictated on workstation # [id number] Dict: 06/04/20 1232 Trans: 06/04/20 1645 AS6 [id number] Interpreted by: DICK GARCIA MD Electronically signed by: DICK GARCIA MD 06/04/20 1645 [facility], [place] NAME: CAMMY JACKSON [facility] REC#: [id number] PT STATUS: ADM IN : 1955 PHYSICIAN: JESUS GEE DO ADMIT DATE: 06/04/20/ICU Signed Date of Exam:06/04/20 US VENOUS LOWER EXT HAO PROCEDURE: US Venous Lower Ext Hao. INDICATION: New onset atrial fibrillation, leg edema. TECHNIQUE: Multiple real-time grayscale images were obtained over the lower extremities in various projections, bilaterally. Additional duplex Doppler and color Doppler images were also obtained. CORRELATION STUDY: None FINDINGS: Color and grayscale sonographic images demonstrate no intraluminal defect within the visualized portion of the common femoral, superficial femoral and/or popliteal veins to suggest thrombus formation. These vessels demonstrate normal response to compression and augmentation. No soft tissue fluid collection. IMPRESSION: 1. Negative for deep venous thrombosis of either leg. Dictated by: Dictated on workstation # [id number] Dict: 06/04/20 1537 Trans: 06/04/20 1538 DO [id number] Interpreted by: RIGO COLÓN DO Electronically signed by: RIGO COLÓN DO 06/04/20 1538 Short Stay Diagnosis Discharge Diagnosis-Short Stay Admission Diagnosis Sepsis Final Discharge Diagnosis SAH Conclusion Plan SAH Right Subdural Hematoma Syncope After I examined and interviewed patient CT head and neck obtained considering potential for trauma Received call from Dr Zuniga, radiology, regarding SAH and SDH I immediately called [facility] to facilitate transfer, pt accepted by Dr Alfaro I returned to the room to discuss with patient and via phone his Discussed finding from CT Head and need for neurosurgery evaluation and close monitoring for progression Patient had been given Lovenox in the ER due to a-fib so high risk for progression of bleed so decision made to fly patient to [facility] Patient and understanding diagnosis and need for transfer Severe Sepsis- present on arrival RML CAP MACARIO Received Rocephin and Azithromycin x1 here Will send culture results when available COVID rapid test negative but PCR pending IVF due to MACARIO Atrial fibrillation Elevated Troponin New onset, will need further work up All further anticoagulation held due to SAH/SDH Rate controlled Cardiology consulted, appreciate assistance Elevated d-dimer Unable to get CTA due to MACARIO Unable to treat with lovenox due to SAH/SDH Disposition: Accepted in transfer to [facility] SICU by Dr Alfaro. Diagnosis/Problems Diagnosis/Problems (1) Subarachnoid bleed Status: Acute (2) Subdural hematoma Status: Acute (3) CAP (community acquired pneumonia) Status: Acute Qualifiers: Qualified Codes: J18.9 - Pneumonia, unspecified organism (4) Sepsis Status: Acute Qualifiers: Qualified Codes: A41.9 - Sepsis, unspecified organism; R65.20 - Severe sepsis without septic shock; N17.9 - Acute kidney failure, unspecified (5) Atrial fibrillation Status: Acute Qualifiers: Qualified Codes: I48.91 - Unspecified atrial fibrillation (6) MACARIO (acute kidney injury) Status: Acute (7) Suspected COVID-19 virus infection Status: Acute Clinical Quality Measures DVT/VTE Risk/Contraindication: Risk Factor Score Per Nursin RFS Level Per Nursing on Admit: 3=High Contraindications-Pharm: Other *list below* Other: SAH DVT/VTE Prophylaxis Comfirm.Dx Pharmacological not ordered: Active bleeding FLORENCIA WOODSON MD Jun 04, 2020 17:05
--- NOTE | 2020-06-04 17:30 | NUR ---
REPORT CALLED TO NIGEL RN WITH [facility]. [facility] NOTIFIED OF NEED FOR TRANSFER. COPY OF PACKED READY BY [facility].
--- NOTE | 2020-06-04 18:15 | NUR ---
PATIENT LEFT FACILITY WITH [facility] AT THIS TIME. PERSONAL BELONGINGS LEFT AT HOSPITAL D/T LIMITED ROOM IN HELIC[facility]TER. NOTIFIED OF BELONGINGS AT HOSPITAL BY THIS RN. TRANSFER CENTER NOTIFIED OF PATIENT LEFT FACILITY, [facility] RN NOTIFIED PATIENT HAS LEFT FACILITY.
[2020-06-05] MEDS ORDERED: ENOXAPARIN 100 MG/1 ML (LOVENOX) SYR SC SCH
[2020-06-05] MEDS ORDERED: AZITHROMYCIN 250 MG TAB (ZITHROMAX) PO SCH (09:00)
[2020-06-05] MEDS ORDERED: cefTRIAXone 1,000 MG/SWFI 10 ML IV PUSH IV SCH ×2 (09:00)
[2020-06-05] MEDS ORDERED: PANTOPRAZOLE 40 MG (PROTONIX) VIAL IV SCH (09:00)
[2020-06-05] MEDS ORDERED: ASPIRIN 81 MG CHEW (CHILDREN'S ASA) PO SCH (09:00)
[2020-06-07 14:37] LABS: RSV PCR TEST Not Detected (Not Detected)
== END 2020-06-04 18:36 | disposition short-term general hospital (02) | DRG 871 ==
LOC: EDUNIT# 10:32 → ER 10:33 → ICU 12:43
PROVIDERS: ADMIT Family Medicine; ATTEND Family Medicine
DX: A41.9 Sepsis, unspecified organism (principal); J18.9 Pneumonia, unspecified organism; S06.6X0A Traumatic subarachnoid hemorrhage without loss of consciousness, initial encounter; N17.9 Acute kidney failure, unspecified; R65.20 Severe sepsis without septic shock; W11.XXXA Fall on and from ladder, initial encounter; I48.91 Unspecified atrial fibrillation; Z20.828 Contact with and (suspected) exposure to other viral communicable diseases
CPT/HCPCS: 36415; 70450; 71045; 71250; 72125; 74176; 80053; 80306; 80320; 81000; 83605; 83615; 83735; 83880; 84145; 84484; 85025; 85379; 85610; 85730; 86141; 87040; 87081; 87449; 87631; 87635; 87804; 87899; 93041; 93970

== ENCOUNTER 2020-07-01 13:58 | Outpatient (RCR) | payer BC, MEDICARE | END 2020-07-01 15:50 | disposition home or self-care (01) | PROVIDERS: ATTEND Internal Medicine | DX: R53.1 Weakness (principal) ==

== ENCOUNTER → 2020-07-26 | Outpatient (CLI) | payer BC, MEDICARE ==
[~2020-07-26] MED LIST: AMIO200T6 PO; APIX5TAB PO; LOSA25TA41 PO; METO-333 PO
== END ==
LOC: LABNPT 05:46
PROVIDERS: ATTEND Internal Medicine Cardiovascular Disease
DX: Z01.812 Encounter for preprocedural laboratory examination (principal); Z20.828 Contact with and (suspected) exposure to other viral communicable diseases
CPT/HCPCS: 87635

== ENCOUNTER 2020-07-28 07:33 | Day surgery (SDC) | payer BC, MEDICARE ==
[2020-07-28] VITALS (10 sets, daily range): BP systolic 104–152; BP diastolic 67–103
[~2020-07-28] VITALS: Ht 170 cm; Wt 107.0 kg
[2020-07-28] MEDS ORDERED: NS IV 1000 ML 1,000 ML IV ONE (07:34)
[2020-07-28] MEDS ORDERED: LIDOCAINE 2% VISCOUS 15 ML UDC ONE (07:38)
[2020-07-28] MEDS ORDERED: NS IV 1000 ML 1,000 ML ONE (07:38)
[2020-07-28] MEDS ORDERED: LIDOCAINE 2% VISCOUS 15 ML UDC PO ONE (07:45)
[2020-07-28] MEDS ORDERED: MIDAZOLAM 5 MG/5 ML (VERSED) VIAL IV ONE (07:45)
[2020-07-28] MEDS ORDERED: fentaNYL INJECTION 100 MCG/2 ML AMP IV ONE (07:45)
[2020-07-28] MEDS ORDERED: METO-333 PO (08:09)
[2020-07-28] MEDS ORDERED: APIX5TAB PO (08:09)
[2020-07-28 08:10] LABS: HEMOGLOBIN 14.6 g/dL (13.3-17.7); MEAN PLATELET VOLUME 8.8 fL (9.0-12.2); WHITE BLOOD COUNT 5.9 10^3/uL (4.3-11.0)
[2020-07-28] MEDS ORDERED: proPOfol 200 MG/20 ML (DIPRIVAN) VIAL IV ONE (08:22)
[2020-07-28] MEDS ORDERED: MIDAZOLAM 2 MG/2 ML (VERSED) VIAL ONE (08:22)
[2020-07-28 08:26] LABS: ALBUMIN 3.9 GM/DL (3.2-4.5); CALCIUM 8.7 MG/DL (8.5-10.1); CREATININE SERUM 1.24 MG/DL (0.60-1.30); INR 1.2 (0.8-1.4); POTASSIUM 4.4 MMOL/L (3.6-5.0); TOTAL PROTEIN 7.4 GM/DL (6.4-8.2)
--- NOTE | 2020-07-28 08:32 | Diagnostic Imaging Report ---
EXAMINATION: Chest radiograph, portable AP view. DATE: 07/28/2020 8:20 AM hours. INDICATION: 65-year-old male, preoperative exam. COMPARISON: June 04, 2020. FINDINGS: Heart size and mediastinal contours are unchanged. There is no identified pneumothorax. There is no large pleural effusion. Lung volumes are somewhat low. There is no identified focal airspace consolidation. The previously noted right middle lobe airspace consolidation has resolved. IMPRESSION: No identified acute cardiopulmonary abnormality. Dictated by: Dictated on workstation # [id number]
[2020-07-28] MEDS ORDERED: AMIODARONE INJECTION 150 MG in D5W 100 ML IVPB 100 ML IV ONE (08:45)
--- NOTE | 2020-07-28 09:18 | Cardiac Procedure Note-CS/ASA ---
Pre-Procedure Note Pre-Op Procedure Note H&P Reviewed The H&P was reviewed, patient examined and no changes noted. Date H&P Reviewed: Jul 28, 2020 Time H&P Reviewed: 08:00 Conscious Sedation Pre-Proced Time 08:00 ASA Score 3 For ASA 3 and 4: Consider anesthesia and medical clearance. Also, for patients with a history of failed moderate sedation consider anesthesia. Airway Lungs Heart ASA score ASA 1: a normal healthy patient ASA 2: a patient with a mild systemic disease (mid diabetes, controlled hypertension, obesity x ASA 3: a patient with a severe systemic disease that limits activity (angina, COPD, prior Myocardial infarction) ASA 4: a patient with an incapacitating disease that is a constant threat to life (CHF, renal failure) ASA 5: a moribund patient not expected to survive 24 hrs. (ruptured aneurysm) ASA 6: a declared brain- patient whose organs are being harvested. For emergent operations, add the letter E after the classification Mallampati Classification Grade 3 Sedation Plan Analgesia, Amnesia, Plan communicated to team members, Discussed options with patient/fam, Discussed risks with patient/fam The patient is an appropriate candidate to undergo the planned procedure, sedation, and anesthesia. The patient immediately re-assessed prior to indication. AUDELIA BEARD MD Jul 28, 2020 9:18 am
[2020-07-28] MEDS ORDERED: AMIO200T6 PO (09:20)
[2020-07-28] MEDS ORDERED: LOSA25TA41 PO (09:20)
--- NOTE | 2020-07-28 09:21 | Discharge Inst-Post CATH ---
Discharge Inst-CATH/EP Problems Reviewed?: Yes Post Cardiac Cath/EP D/C Inst Follow Up/Plan Appointment with Dr. BEARD's office in 2 weeks <b>CARDIAC CATH/EP PROCEDURE DISCHARGE INSTRUCTIONS</b> ACTIVITY * Go Home directly and rest. * Limit activity of the leg (or wrist if it was used) for 7 days including aerobics, swimming, jogging, bicycling, etc. * Restrict stair-climbing for 7 days if possible, if not, climb up with your non-cath leg, then bring together on the same step. * Avoid lifting, pushing, pulling or excessive movement of the affected extremity for 7 days. * Customary sexual activity may be resumed after 2 days-use caution not to use a position that strains or causes pain to the affected extremity. * No driving for 24 hours. * NO SMOKING. * Avoid straining for bowel movements for 7 days. * Gentle walking on level ground is allowed. * Returning to work will depend on the type of procedure and the results. Your doctor will discuss this with you. CALL YOUR DOCTOR FOR ANY OF THE FOLLOWING: *If bleeding from the puncture site occurs- Apply gentle pressure to site with clean cloth and call your doctor or EMS. * If a knot or lump forms under the skin, increases in size, or causes pain. * If bruising appears to be worsening or moving further down your leg instead of disappearing. * Temperature above 101 F. CARE OF YOUR GROIN INCISION; * Bruising or purple discoloration of the skin near the puncture site is common. * You may shower only, no bathtub bathing for 5 days. Be careful to avoid slipping as your leg may feel stiff. * If a closure device was used on your femoral artery, please see the attached guide regarding care of the device and your leg. * Leave dressing on FOR 24 hours. CARE OF YOUR WRIST INCISION; * Bruising or purple discoloration of the skin near the puncture site is common. * You may shower. * DO NOT submerge wrist. * Leave dressing on FOR 24 hours. AUDELIA BEARD MD Jul 28, 2020 9:21 am
--- NOTE | 2020-07-28 09:22 | Cardioversion ---
Cardioversion PROCEDURE PHYSICIAN: Audelia Uribe DATE OF PROCEDURE: 07/28/20 DIRECT EXTERNAL ELECTRICAL CARDIOVERSION: Indications: Atrial Fibrillation with rapid ventricular rate Preoperative diagnoses: Atrial Fibrillation with rapid ventricular rate Postoperative diagnosis: Sinus rhythm, Successful Electrical Cardioversion History: 65 years old gentleman with atrial fibrillation and variable heart rate response, scheduled for KERRY cardioversion Anesthesia: By Anesthesia services Complications: None Specimen: None Contrast: 0 Flouroscopy: none Procedure Details: The patient was brought the cath lab nurse after informed consent was taken, all the risks and complications were explained including the risk of stroke. Electrical cardioversion was carried out with anesthesia support with propofol. 120 joules of synchronized shock was delivered through external patches which promptly restored sinus rhythm. The patient tolerated the procedure well. Conclusions: Successful electrical cardioversion with no complication Final Diagnosis: Paroxysmal atrial fibrillation Palpitation Hypertension Congestive heart failure, chronic compensated left ventricular systolic dysfunction, ejection fraction 30 percent, nonischemic cardiomyopathy AUDELIA URIBE MD Jul 28, 2020 9:22 am
--- NOTE | 2020-07-28 09:37 | Anesthesia-General Post-Op ---
MAC Patient Condition Mental Status/LOC: Same as Preop Cardiovascular: Satisfactory Nausea/Vomiting: Absent Respiratory: Satisfactory Pain: Controlled Complications: Absent Post Op Complications Complications None Follow Up Care/Instructions Patient Instructions None needed. Anesthesiology Discharge Order Discharge Order Patient is doing well, no complaints, stable vital signs, no apparent adverse anesthesia problems. No complications reported per nursing. LISA RODRÍGUEZ CRNA Jul 28, 2020 09:37
== END 2020-07-28 09:59 | disposition home or self-care (01) ==
LOC: SDC 07:33 → CATH 09:59
PROVIDERS: ATTEND Internal Medicine Cardiovascular Disease
DX: I48.0 Paroxysmal atrial fibrillation (principal); I11.0 Hypertensive heart disease with heart failure; I50.22 Chronic systolic (congestive) heart failure; I62.9 Nontraumatic intracranial hemorrhage, unspecified; I34.0 Nonrheumatic mitral (valve) insufficiency; E66.9 Obesity, unspecified; Z68.37 Body mass index [BMI] 37.0-37.9, adult; Z79.01 Long term (current) use of anticoagulants
CPT/HCPCS: 36415; 71045; 80053; 80061; 85027; 85610; 85730; 87081; 92960; 93005; 93312

== ENCOUNTER 2020-08-11 10:18 | Day surgery (SDC) | payer BC, MEDICARE ==
[~2020-08-11] VITALS: Ht 170 cm; Wt 110.0 kg
[2020-08-11] MEDS ORDERED: LIDOCAINE 1% INJ 20 ML 20 ML VIAL ONE (10:32)
[2020-08-11 10:39] VITALS: BP 123/68
[2020-08-11] MEDS ORDERED: LIDOCAINE 1% INJ 20 ML 20 ML VIAL INJ ONE (10:45)
--- NOTE | 2020-08-11 11:41 | Implantation of Loop Monitor ---
Implant of Loop Monitior IMPLANTATION OF LOOP MONITOR REPORT DATE OF PROCEDURE: 08/11/20 PREOP DIAGNOSIS: Paroxysmal atrial fibrillation POSTOP DIAGNOSIS: Paroxysmal atrial fibrillation PROCEDURE DETAILS: The patient is a 65 male with history of paroxysmal atrial fibrillation requiring long-term surveillance. Therefore implantable loop recorder was discussed and agreed with the patient. Informed consent was taken. All risks and complications were discussed at length. The patient was draped and prepped in the usual sterile fashion. Local anesthesia was lidocaine, which was given in the substernal area close to the 4th intercostal space. Loop monitor [employer] with serial number [id number] was implanted according to the protocol. Steri- Strips were placed at the end of the procedure. There were no complications and the patient tolerated the procedure well. The device was interrogated with a voltage of. ANESTHESIA: Local anesthesia with lidocaine. COMPLICATIONS: None CONTRAST/FLUOROSCOPY: None CONCLUSION: Successful implantation of loop monitor with no complication FINAL DIAGNOSIS: Paroxysmal atrial fibrillation Palpitation Hypertension AUDELIA BEARD MD Aug 11, 2020 11:41 am
== END 2020-08-11 11:52 | disposition home or self-care (01) ==
LOC: CATH 10:18
PROVIDERS: ATTEND Internal Medicine Cardiovascular Disease
DX: I48.0 Paroxysmal atrial fibrillation (principal); I10 Essential (primary) hypertension; Z79.01 Long term (current) use of anticoagulants; Z80.9 Family history of malignant neoplasm, unspecified
CPT/HCPCS: 33285; C1764

== ENCOUNTER 2022-04-04 08:45 | Inpatient (IN) | payer BC, MEDICARE ==
[~2022-04-04] VITALS: Ht 170.2 cm; Wt 109.0 kg
[~2022-04-04 08:45] MED LIST changes: -AMIO200T6 PO; +AMIO200T65 PO
[2022-04-04] MEDS ORDERED: dilTIAZem DRIP PRE-MIX 125 ML IV SCH (09:15)
[2022-04-04] MEDS ORDERED: NS IV 500 ML 500 ML IV ONE (09:15)
[2022-04-04 09:16] LABS: BASOPHILS % (AUTO) 0 % (0-10); EOSINOPHILS % (AUTO) 0 % (0-10); HEMATOCRIT 47 % (40-54); HEMOGLOBIN 15.1 g/dL (13.3-17.7); LYMPHOCYTES # (AUTO) 1.5 10^3/uL (1.0-4.0); LYMPHOCYTES % (AUTO) 20 % (12-44); MEAN CORPUSCULAR HEMOGLOBIN 31 pg (25-34); MEAN CORPUSCULAR HGB CONC 32 g/dL (32-36); MEAN CORPUSCULAR VOLUME 98 fL (80-99); MEAN PLATELET VOLUME 9.2 fL (9.0-12.2); MONOCYTES # (AUTO) 0.5 10^3/uL (0.0-1.0); MONOCYTES % (AUTO) 7 % (0-12); NEUTROPHILS # (AUTO) 5.3 10^3/uL (1.8-7.8); NEUTROPHILS % (AUTO) 73 % (42-75); PLATELET COUNT 168 10^3/uL (130-400); WHITE BLOOD COUNT 7.4 10^3/uL (4.3-11.0)
[2022-04-04 09:23] LABS: ALBUMIN 4.4 GM/DL (3.2-4.5); POTASSIUM 4.5 MMOL/L (3.6-5.0)
[2022-04-04 09:24] LABS: CALCIUM 9.6 MG/DL (8.5-10.1)
--- NOTE | 2022-04-04 09:24 | ED Cardiac General ---
History of Present Illness General Chief Complaint: Respiratory Problems Stated Complaint: SOB Nursing Triage Note: PT AMB TO RM 7 CO OF SOA X 2 DAYS. PT DENIES C/P. PT DENIES COUGH. PT RR 36 SAT 100% Source: patient Exam Limitations: no limitations History of Present Illness Date Seen by Provider: Apr 04, 2022 Time Seen by Provider: 09:00 Initial Comments Patient is here with shortness of air x2 days. He denies chest pain but does admit to increasing shortness of air, palpitations, breathing problems that are worse with laying down but denies nausea, vomiting, diarrhea, sweating or weakness. Does admit to fatigue. He is not vaccinated for COVID. Denies cough, fevers, chills, sore throat or runny nose. Has had A. fib before and he is on a blood thinner and a blood pressure medicine but denies other medications. He was initially prescribed a medication for his A. fib but was unable to take it as it caused him to feel terrible. Does follow with cardiology locally and Dr. Kennedy. Timing/Duration: 1-2 days Severity: moderate Location: central (Tightness) Prior CP/Workup: stress test NTG SL MANUFACTURING PROCESS TECHNICIAN: No ASA po MANUFACTURING PROCESS TECHNICIAN: No Associated Systoms: No Nausea/Vomiting; Shortness of Air, Weakness Allergies and Home Medications Allergies Coded Allergies: No Known Drug Allergies (Unverified , 06/04/20) Patient Home Medication List Home Medication List Reviewed: Yes Amiodarone HCl (Amiodarone HCl) 200 Mg Tablet, 200 MG PO UD Prescribed by: AUDELIA BEARD on 07/28/20919 Apixaban (Eliquis) 5 Mg Tablet, 5 MG PO BID, (Reported) Entered as Reported by: SHABANA PRIETO on 07/28/20 08 Losartan Potassium (Losartan Potassium) 25 Mg Tablet, 25 MG PO DAILY Prescribed by: AUDELIA BEARD on 07/28/20919 Metoprolol Tartrate (Metoprolol Tartrate) 25 Mg Tablet, 25 MG PO BID, (Reported) Entered as Reported by: SHABANA PRIETO on 07/28/20 08 Review of Systems Review of Systems Constitutional: No chills, No fever EENTM: No Nose Congestion, No Throat Pain Respiratory: Denies Cough; Orthopnea, Shortness of Air, SOA With Exertion, SOA at Rest Cardiovascular: Denies Chest Pain; Edema; Denies Lightheadedness; Palpitations Gastrointestinal: Denies Diarrhea, Denies Nausea, Denies Vomiting Genitourinary: No Symptoms Reported Musculoskeletal: No back pain, No muscle pain Skin: no symptoms reported Psychiatric/Neurological: Denies Headache, Denies Numbness All Other Systems Reviewed Negative Unless Noted: Yes Past Hoxkmwv-Fhxbbg-Udxzzj Hx Patient Social History Tobacco Use?: No Substance use?: No Alcohol Use?: No Immunizations Up To Date Tetanus Booster (TDap): Unknown Seasonal Allergies Seasonal Allergies: No Past Medical History Surgeries: No Respiratory: Yes Pneumonia Cardiac: Yes Atrial Fibrillation Neurological: Yes (STATES HAS A HX OF BRAIN BLEED) Genitourinary: No Gastrointestinal: No Musculoskeletal: No Endocrine: No HEENT: No Cancer: No Psychosocial: No Integumentary: No Blood Disorders: No Family Medical History Reviewed Nursing Family Hx No Pertinent Family Hx Physical Exam Vital Signs Vital Signs - First Documented 04/04/22 08:49 Pulse 130 Resp 36 Pulse Ox 100 Capillary Refill : Less Than 3 Seconds Height, Weight, BMI Height: '" Weight: lbs. oz. kg; 38.00 BMI Method: General Appearance: No Apparent Distress, WD/WN, Obese HEENT: PERRL/EOMI, Pharynx Normal Neck: Non Tender, Supple Respiratory: No Accessory Muscle Use, Crackles (Bases with left greater than right.), Other (Tachypneic with rate of 30s) Cardiovascular: No Murmur, Irregularly Irregular, Tachycardia Gastrointestinal: Non Tender, Soft Extremity: Normal Range of Motion, Non Tender, No Calf Tenderness, Pedal Edema (2+ up to knees bilateral) Neurologic/Psychiatric: Alert, Oriented x3 Skin: Normal Color, Warm/Dry Progress/Results/Core Measures Results/Orders Lab Results Laboratory Tests Test 04/04/22 08:55 04/04/22 09:03 Range/Units White Blood Count 7.4 4.3-11.0 10^3/uL Red Blood Count 4.83 4.30-5.52 10^6/uL Hemoglobin 15.1 13.3-17.7 g/dL Hematocrit 47 40-54 % Mean Corpuscular Volume 98 80-99 fL Mean Corpuscular Hemoglobin 31 25-34 pg Mean Corpuscular Hemoglobin Concent 32 32-36 g/dL Red Cell Distribution Width 15.1 H 10.0-14.5 % Platelet Count 168 130-400 10^3/uL Mean Platelet Volume 9.2 9.0-12.2 fL Immature Granulocyte % (Auto) 0 % Neutrophils (%) (Auto) 73 42-75 % Lymphocytes (%) (Auto) 20 12-44 % Monocytes (%) (Auto) 7 0-12 % Eosinophils (%) (Auto) 0 0-10 % Basophils (%) (Auto) 0 0-10 % Neutrophils # (Auto) 5.3 1.8-7.8 10^3/uL Lymphocytes # (Auto) 1.5 1.0-4.0 10^3/uL Monocytes # (Auto) 0.5 0.0-1.0 10^3/uL Eosinophils # (Auto) 0.0 0.0-0.3 10^3/uL Basophils # (Auto) 0.0 0.0-0.1 10^3/uL Immature Granulocyte # (Auto) 0.0 0.0-0.1 10^3/uL Sodium Level 141 135-145 MMOL/L Potassium Level 4.5 3.6-5.0 MMOL/L Chloride Level 105 98-107 MMOL/L Carbon Dioxide Level 22 21-32 MMOL/L Anion Gap 14 5-14 MMOL/L Blood Urea Nitrogen 21 H 7-18 MG/DL Creatinine 1.78 H 0.60-1.30 MG/DL Estimat Glomerular Filtration Rate 41 BUN/Creatinine Ratio 12 Glucose Level 127 H 70-105 MG/DL Calcium Level 9.6 8.5-10.1 MG/DL Corrected Calcium 9.3 8.5-10.1 MG/DL Magnesium Level 2.2 1.6-2.4 MG/DL Total Bilirubin 2.8 H 0.1-1.0 MG/DL Aspartate Amino Transf (AST/SGOT) 23 5-34 U/L Alanine Aminotransferase (ALT/SGPT) 10 0-55 U/L Alkaline Phosphatase 70 40-136 U/L Troponin I 0.073 H <0.028 NG/ML B-Type Natriuretic Peptide 1153.1 H <100.0 PG/ML Total Protein 8.3 H 6.4-8.2 GM/DL Albumin 4.4 3.2-4.5 GM/DL Influenza Type A (RT-PCR) Not Detected Not Detecte Influenza Type B (RT-PCR) Not Detected Not Detecte SARS-CoV-2 RNA (RT-PCR) Detected H Not Detecte My Orders Orders - JACOB LOREDO MD Ekg Tracing (04/04/22 08:48) Bnp Victor Hugo (04/04/22 09:07) Cbc With Automated Diff (04/04/22 09:07) Comprehensive Metabolic Panel (04/04/22 09:07) Magnesium (04/04/22 09:07) Troponin I Andrew (04/04/22 09:07) Ed Iv/Invasive Line Start (04/04/22 09:07) Ekg Tracing (04/04/22 09:07) O2 (04/04/22 09:07) Monitor-Rhythm Ecg Trace Only (04/04/22 09:07) Chest 1 View, Ap/Pa Only (04/04/22 09:07) Ed Iv/Invasive Line Start (04/04/22 09:07) Ns Iv 500 Ml (Sodium Chloride 0.9%) (04/04/22 09:15) Diltiazem Injection (Cardizem Injection) (04/04/22 09:15) Diltiazem Drip Pre-Mix (Cardizem Drip Pr (04/04/22 09:15) Covid 19 Inhouse Test (04/04/22 09:07) Influenza A And B By Pcr (04/04/22 09:07) Procalcitonin (Pct) (04/04/22 10:00) Medications Given in ED Current Medications Medications Dose Ordered Sig/Scotty Route Start Time Stop Time Status Last Admin Dose Admin Diltiazem HCl 15 mg ONCE ONCE IVP 04/04/22 09:15 04/04/22 09:16 DC 04/04/22 09:40 15 MG Sodium Chloride 500 ml @ 0 mls/hr Q0M ONCE IV 04/04/22 09:15 04/04/22 09:16 DC 04/04/22 09:39 500 MLS/HR Vital Signs/I&O 04/04/22 08:49 Pulse 130 Resp 36 B/P (MAP) Pulse Ox 100 Progress Progress Note : Progress Note Seen and evaluated. IV, labs, EKG and chest x-ray ordered. Normal saline 500 mL bolus. Cardizem 15 mg IV followed by drip initiated at 10 mg/h.. Patient does not have chest pain so are not given aspirin. He is apparently on apixaban. Monitor patient. 1005: Patient noted to have slight elevation of troponin, elevated BNP and is positive for COVID. Do believe this represents COVID infection with A. fib RVR with mild heart failure and demand ischemia. We will give aspirin 324 mg p.o. as well as Lasix 40 mg IV. I discussed the case with Dr. Kennedy who accepts the patient for admission, inpatient status to the ICU. I discussed the case with Dr. Nelson who will see the patient in consult and continue diuretics as needed. Findings and concerns discussed with the patient and family who agree with plan. Initial ECG Impression Date: Apr 04, 2022 Initial ECG Impression Time: 08:53 Initial ECG Rate: 120 Initial ECG Rhythm: A Fib/Flutter Initial ECG Impression: Atrial Fibrillation w/RVR Comment Atrial fibrillation with right axis deviation and. Rapid ventricular rate noted. Occasional PVCs. Change from previous of 07/28/2020 with A. fib with RVR noted now. Interpreted by me. No evidence of ST elevation MD. Diagnostic Imaging Diagonstic Imaging: Xray Plain Films/CT/US/NM/MRI: chest Comments [facility]. [place], [place] NAME: CAMMY JACKSON [facility] REC#: [id number] PT STATUS: REG ER : 1955 PHYSICIAN: JACOB LOREDO MD ADMIT DATE: 04/04/22/ER Draft Date of Exam:04/04/22 CHEST 1 VIEW, AP/PA ONLY INDICATION: Shortness of air, chest pain. COMPARISON: 07/28/2020. FINDINGS: Upper limits heart size and mild vascular prominence unchanged from prior. No acute infiltrate, effusion or pneumothorax. No free air beneath the diaphragms. A loop recorder opacity projects over the left chest. IMPRESSION: Redemonstration of upper limits heart size and venous caliber with some chronic prominence of interstitial markings. Findings all unchanged from prior aside from placement of a loop recorder with no pneumothorax, pleural fluid or focal consolidation. Dictated on workstation # [id number] Dict: 04/04/22920 Trans: 04/04/22923 [id number] Interpreted by: AUTUMN BOBBY Electronically signed by: Departure Communication (Admissions) Time/Spoke to Admitting Phy: 10:00 Time/Spoke to Consulting Phy: 10:05 Impression Primary Impression: Atrial fibrillation with RVR Additional Impressions: Acute heart failure Qualified Codes: I50.9 - Heart failure, unspecified Non-STEMI (non-ST elevated myocardial infarction) COVID-19 virus infection Disposition: ADMITTED INPATIENT Condition: Stable Admissions Decision to Admit Reason: Admit from ER (General) Decision to Admit/Date: Apr 04, 2022 Time/Decision to Admit Time: 10:00 Departure-Patient Inst. Referrals: GISELLA KENNEDY DO (PCP/Family) Primary Care Physician JACOB LOREDO MD Apr 04, 2022 09:24
[2022-04-04 09:25] LABS: TOTAL PROTEIN 8.3 GM/DL (6.4-8.2)
[2022-04-04 09:27] LABS: BILIRUBIN,TOTAL 2.8 MG/DL (0.1-1.0)
[2022-04-04 09:29] LABS: CREATININE SERUM 1.78 MG/DL (0.60-1.30)
[2022-04-04 09:32] LABS: MAGNESIUM 2.2 MG/DL (1.6-2.4)
[2022-04-04] MEDS ORDERED: FUROSEMIDE 40 MG/4 ML INJ (LASIX) IV STA (10:03)
[2022-04-04] MEDS ORDERED: ASPIRIN 81 MG CHEW (CHILDREN'S ASA) PO ONE (10:15)
[2022-04-04] MEDS ORDERED: ONDANSETRON 4 MG (ZOFRAN) ORAL DISSOLVE TAB PO PRN (11:15)
[2022-04-04] MEDS ORDERED: NALOXONE 0.4 MG/ML 1 ML (NARCAN) VIAL IV PRN (11:15)
[2022-04-04] MEDS ORDERED: LACTULOSE SYRUP 10GM/15ML (ENULOSE) 30ML UDC PO PRN (11:15)
[2022-04-04] MEDS ORDERED: MELATONIN 3 MG TABLET PO PRN (11:15)
[2022-04-04] MEDS ORDERED: ACETAMINOPHEN 325 MG TABLET PO PRN (11:15)
[2022-04-04] MEDS ORDERED: CALCIUM CARBONATE 500 MG (TUMS) TAB.CHEW PO PRN (11:15)
[2022-04-04] MEDS ORDERED: diphenhydrAMINE 25 MG TAB (BENADRYL) PO PRN (11:15)
[2022-04-04] MEDS ORDERED: ONDANSETRON 4 MG/2 ML (SDV) Z0FRAN IV PRN (11:15)
[2022-04-04] MEDS ORDERED: morphine INJ 4 MG/ML 1 ML (VIAL/SYRINGE) IV PRN (11:15)
[2022-04-04] MEDS ORDERED: polyethylene glycoL POWDER 17 GM (MIRALAX) PACK PO PRN (11:15)
[2022-04-04] MEDS ORDERED: BISACODYL 10 MG SUPP (DULCOLAX) PR PRN (11:15)
[2022-04-04] MEDS ORDERED: MILK OF MAGNESIA 400 MG/5 ML 30 ML UDC PO PRN (11:15)
[2022-04-04] MEDS ORDERED: ANTACID SUSP 30 ML UDC (MYLANTA) PO PRN (11:15)
[2022-04-04] MEDS ORDERED: diphenhydrAMINE 50 MG/ML INJ (BENADRYL) IVP PRN (11:15)
[2022-04-04] MEDS ORDERED: REMDESIVIR INJ 200 MG in NS (IVPB) 210 ML IV NR (11:30)
[2022-04-04] MEDS: dilTIAZem DRIP PRE-MIX 125 ML IV SCH ×2 (11:34→21:12)
--- NOTE | 2022-04-04 11:46 | History & Physical ---
KIRSTEN PEPPER A MED STUDENT 04/04/22 1146: History of Present Illness History of Present Illness Reason for visit/HPI Yao is a 66 yo male admitted from ED for COVID, Afib with RVR and heart failure. Pt has past medical hx of Afib on apixaban, but not rate controlled and HTN. Pt was seen in ED today 04/04 for increasing SOA for the last two days. Lying flat makes the SOA worse. He also had palpitations as well. In the ED pt was found to be in Afib with RVR and COVID positive. BNP was 1153.1 and troponin ws 0.073. Pt was given initial cardizem dose and then started on drip. Car diology was consulted. Pt was also given 500ml bolus of IV fluids, aspirin 324mg orally and lasix 40mg IV. Pt was admitted to ICU. Upon examination in the ICU the pt reports his SOA has already improved. He denies chest pain, palpitations, fever, chills, abdominal pain, N/V/D, numbness, headache or blurry vision. Pt denies ETOH, tobacco or drug use. His only medications are apixaban and something for his HTN that he cant recall the name of. Pt has regular follow ups with Dr. Uribe, conduit installer who recently started the pt on rate controller for Afib, but the pt states it made him feel funny, so he stopped taking it. Date of Admission Apr 04, 2022 at 10:23 Date Seen by a Provider: Apr 04, 2022 Time Seen by a Provider: 11:45 I consulted on this patient on 04/04/22 11:41 Attending Physician Ally Kennedy DO Admitting Physician Admitting Physician: Ally Kennedy DO Attending Physician: Ally Kennedy DO Consult Allergies and Home Medications Allergies Coded Allergies: No Known Drug Allergies (Unverified , 06/04/20) Patient Home Medication List Rivaroxaban (Xarelto Tablet) 20 Mg Tablet, 20 MG PO DAILY@1700, (Reported) Entered as Reported by: CHERYL YOUNG on 04/04/22 1349 Last Action: Reviewed Discontinued Medications Amiodarone HCl (Amiodarone HCl) 200 Mg Tablet, 200 MG PO UD Discontinued Reason: No Longer Taking Prescribed by: AUDELIA URIBE on 07/28/20 0920 Last Action: Discontinued Apixaban (Eliquis) 5 Mg Tablet, 5 MG PO BID, (Reported) Discontinued Reason: No Longer Taking Entered as Reported by: SHABANA PRIETO on 07/28/20808 Last Action: Discontinued Losartan Potassium (Losartan Potassium) 25 Mg Tablet, 25 MG PO DAILY Discontinued Reason: No Longer Taking Prescribed by: AUDELIA URIBE on 07/28/20919 Last Action: Discontinued Metoprolol Tartrate (Metoprolol Tartrate) 25 Mg Tablet, 25 MG PO BID, (Reported) Discontinued Reason: No Longer Taking Entered as Reported by: SHABANA PRIETO on 07/28/20808 Last Action: Discontinued Past Lebvbwn-Pqedfd-Glhyre Hx Patient Social History Tobacco Use?: No Substance use?: No Alcohol Use?: No Pt feels they are or have been: No Seasonal Allergies Seasonal Allergies: No Current Status Advance Directives: No Communicates: Verbally Primary Language: Wolof Preferred Spoken Language: Wolof Is interpretation needed?: No Sensory deficits: Vision impairment Implanted or Applied Medical D: None Past Medical History Pneumonia Atrial Fibrillation Blood Disorders: No Family Medical History Reviewed Nursing Family Hx No Pertinent Family Hx Review of Systems Constitutional: No chills, No fever EENTM: No hearing loss, No blurred vision Respiratory: No cough; short of breath Cardiovascular: No chest pain, No palpitations Gastrointestinal: No abdominal pain, No constipation, No nausea, No vomiting Genitourinary: No dysuria, No frequency Musculoskeletal: No back pain, No joint pain Skin: No change in color, No rash Psychiatric/Neurological: Denies Headache, Denies Numbness, Denies Weakness Physical Exam Vital Signs Vital Signs - First Documented 04/04/22 04/04/22 04/04/22 04/04/22 08:49 10:30 11:00 11:20 Temp 35.6 Pulse 130 Resp 36 B/P (MAP) 106/83 Pulse Ox 100 O2 Delivery Nasal Cannula O2 Flow Rate 2.00 Capillary Refill : Less Than 3 Seconds Height, Weight, BMI Height: '" Weight: lbs. oz. kg; 38.06 BMI Method: General Appearance: No Apparent Distress, WD/WN HEENT: PERRL/EOMI, Pharynx Normal Neck: Full Range of Motion, Non Tender Respiratory: Chest Non Tender, Lungs Clear, No Accessory Muscle Use Cardiovascular: No Murmur, Irregularly Irregular Gastrointestinal: Normal Bowel Sounds, Non Tender, Soft Back: Normal Inspection, No CVA Tenderness Extremity: Pedal Edema (non pitting edema) Neurologic/Psychiatric: Alert, Oriented x3, Normal Mood/Affect Skin: Normal Color, Warm/Dry Lymphatic: No Adenopathy Assessment/Plan Assessment and Plan Afib with RVR Heart failure COVID Afib/flutter with RVR -Cardizem drip in ICU -Cardiology consulted, appreciate their assistance -Apixaban and aspirin 81 mg Type II VT -Troponin 0.073 -EKG showed afib/flutter with RVR and PVCs with possible old anterior VT Heart failure -Acute vs. chronic -BNP 1153.1 -Lasix 40 mg IV -Monitor urine output COVID -Remdesivir -CXR showed no acute abnormalities -Will monitor oxygen saturation closely, currently requiring 2L NC -MAT protocol -Airborne isolation precaution Diet: Regular DVT prophylaxis: Apixaban Disposition: Pt likely to stay in ICU tonight and tomorrow d/t cardizem drip, possibly longer. Will continue to monitor closely in ICU. Admission Diagnosis Afib RVR Clinical Quality Measures AMI/AHF: ASA po Prior to arrival: ALLY Perry 04/04/222146: History of Present Illness History of Present Illness Reason for visit/HPI CC: AF RVR with COVID HPI: This is a 66yoM clinic patient of [facility] with known AF with recent med changes not tolerated Allergies and Home Medications Allergies Coded Allergies: No Known Drug Allergies (Unverified , 06/04/20) Patient Home Medication List Home Medication List Reviewed: Yes Rivaroxaban (Xarelto Tablet) 20 Mg Tablet, 20 MG PO DAILY@1700, (Reported) Entered as Reported by: CHERYL YOUNG on 04/04/22 1349 Last Action: Reviewed Discontinued Medications Amiodarone HCl (Amiodarone HCl) 200 Mg Tablet, 200 MG PO UD Discontinued Reason: No Longer Taking Prescribed by: AUDELIA URIBE on 07/28/20 0920 Last Action: Discontinued Apixaban (Eliquis) 5 Mg Tablet, 5 MG PO BID, (Reported) Discontinued Reason: No Longer Taking Entered as Reported by: SHABANA PRIETO on 07/28/20 0809 Last Action: Discontinued Losartan Potassium (Losartan Potassium) 25 Mg Tablet, 25 MG PO DAILY Discontinued Reason: No Longer Taking Prescribed by: AUDELIA URIBE on 07/28/20 0920 Last Action: Discontinued Metoprolol Tartrate (Metoprolol Tartrate) 25 Mg Tablet, 25 MG PO BID, (Reported) Discontinued Reason: No Longer Taking Entered as Reported by: SHABANA PRIETO on 07/28/20 0809 Last Action: Discontinued Past Mzodylt-Cbjdrw-Eijjcd Hx Patient Social History Marrital Status: Employed/Student: employed Smoking Status: Never a Smoker Past Medical History Atrial Fibrillation, High Cholesterol, Hypertension Stroke Physical Exam General Appearance: No Apparent Distress, WD/WN Eyes: Bilateral Eye Normal Inspection, Bilateral Eye PERRL, Bilateral Eye EOMI HEENT: PERRL/EOMI, TMs Normal, Normal ENT Inspection, Pharynx Normal Neck: Full Range of Motion, Normal Inspection, Non Tender, Supple, Carotid Bruit Respiratory: Chest Non Tender, Lungs Clear, No Accessory Muscle Use, No Respiratory Distress, Decreased Breath Sounds Cardiovascular: No Edema, No Gallop, No JVD, No Murmur, Normal Peripheral Pulses, Irregularly Irregular, Tachycardia Gastrointestinal: Normal Bowel Sounds, No Organomegaly, No Pulsatile Mass, Non Tender, Soft Back: Normal Inspection, No CVA Tenderness, No Vertebral Tenderness Extremity: Normal Capillary Refill, Normal Inspection, Normal Range of Motion, Non Tender, No Calf Tenderness, No Pedal Edema Neurologic/Psychiatric: Alert, Oriented x3, No Motor/Sensory Deficits, Normal Mood/Affect Skin: Normal Color, Warm/Dry Lymphatic: No Adenopathy Assessment/Plan Assessment and Plan Problems: (1) Atrial fibrillation with RVR Status: Acute (2) COVID-19 virus infection Status: Acute (3) Non-STEMI (non-ST elevated myocardial infarction) Status: Acute (4) Acute heart failure Status: Acute Qualifiers: Qualified Codes: I50.9 - Heart failure, unspecified Admission Diagnosis Admission Status: Inpatient Order (span 2 midnights) Reason for Inpatient Admission: af covid Supervisory-Addendum Brief Verification & Attestation Participated in pt care: history, MDM, physical Personally performed: exam, history, MDM, supervision of care Care discussed with: Medical Student Procedures: n/a Results interpretation: Verified all documentation Verification and Attestation of Medical Student E/M Service A medical student performed and documented this service in my presence. I reviewed and verified all information documented by the medical student and made modifications to such information, when appropriate. I personally performed the physical exam and medical decision making. Ally Kennedy, Apr 05, 2022,06:10 KIRSTEN PEPPER MED STUDENT Apr 04, 2022 11:46 ALLY KENNEDY DO Apr 04, 2022 21:47
[2022-04-04] MEDS ORDERED: RIVA20TA2 PO (13:49)
--- NOTE | 2022-04-04 13:52 | Tele-ICU Progress Note ---
Subjective Date Seen by a Provider: Apr 04, 2022 Time Seen by a Provider: 13:30 Subjective/Events-last exam This virtual visit was conducted using real time audio/video. Thank you for asking us to see this patient for respiratory insufficiency due to CHF, afib w rVR. Also Covid pos Recent events: PMH: afib, CVA, htn. SH: smoking history; N FH: Non-contributory ROS: as in HPI PE: VSS. O2 sat 95% on 3 LPM NC. HEENT: No obvious masses, adenopathy or JVD. Chest: crackles on auscultation. CV: RRR S1 S2 No murmur or added sounds. Abd: Non-tender. Bowel sounds Y. : Unremarkable. 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 No obvious focal findings. Extremities: 2+ edema. Capillary refill < 3 seconds. Skin: unremarkable. Results: Elevated BNP 1153, trop 0.073, BUN 21, Creat. 1.78, BG 127. B.394/36/78 on 3 LPM. CXR: Congested.. Available chart/ vitals / labs / images reviewed. Video assessment done using teleICU camera, rest of exam as per RN. A/P: Respiratory insufficiency: Continue present management with O2. Will add PRN duonebs. Monitor for increasing oxygenation needs and/or need for NIV. Critical Care: critically ill patient. Cont. Dilt., Eliquis, ASA, PPI, lasix. Discussed with RN Stacie. Asked RN to reach out to eICU if any questions or concerns later. Time spent with patient/coordination of care with other health professionals (mins): 30 Sepsis Event Evaluation Height, Weight, BMI Height: '" Weight: lbs. oz. kg; 38.06 BMI Method: Exam Exam Patient acknowledged, consented, and participated in this virtual visit which was conducted using real time audio/video Vital Signs Date Time Temp Pulse Resp B/P (MAP) Pulse Ox O2 Delivery O2 Flow Rate FiO2 04/04/22 12:38 73 04/04/22 12:00 96 29 115/82 97 Nasal Cannula 2.00 04/04/22 11:30 100 105/80 97 Nasal Cannula 2.00 04/04/22 11:20 35.6 04/04/22 11:15 129 114/87 94 Nasal Cannula 2.00 04/04/22 11:06 97 04/04/22 11:00 119/96 Nasal Cannula 2.00 04/04/22 10:30 98 28 106/83 95 04/04/22 08:49 130 36 100 Height & Weight Height: '" Weight: lbs. oz. kg; 38.06 BMI Method: General Appearance: No Apparent Distress, WD/WN HEENT: PERRL/EOMI, Pharynx Normal Neck: Full Range of Motion, Non Tender Respiratory: Chest Non Tender, Lungs Clear, No Accessory Muscle Use Cardiovascular: No Murmur, Irregularly Irregular Capillary Refill: Less Than 3 Seconds Extremity: Pedal Edema (non pitting edema) Neurologic/Psychiatric: Alert, Oriented x3, Normal Mood/Affect Skin: Normal Color, Warm/Dry Lymphatic: No Adenopathy Results Lab Laboratory Tests 04/04/22 08:55 Assessment/Plan Assessment/Plan See free text. Critical Care: Critically Ill Patient DONNY CAMPBELL MD Apr 04, 2022 13:52
[2022-04-04] MEDS ORDERED: RT-ALBUTEROL/IPRATROPIUM 3 ML (DUONEB) VIAL INH SCH (14:00)
[2022-04-04 14:58] VITALS: BP 129/110
[2022-04-04] MEDS ORDERED: RT-ALBUTEROL HFA 8.5 GM INHALER IH PRN (15:00)
[2022-04-04] MEDS: RT-ALBUTEROL HFA 8.5 GM INHALER IH SCH ×2 (18:42→22:00)
--- NOTE | 2022-04-04 18:55 | Consultation-Cardiology ---
HPI-Cardiology Cardiology Consultation: Date of Consultation 04/04/22 Date of Admission 04/04/22 Attending Physician Ally Reynolds DO Admitting Physician Admitting Physician: Ally Reynolds DO Attending Physician: Ally Reynolds DO Consulting Physician XIOMARA CAMPBELL JR, MD HPI: Time Seen by a Provider: 18:49 Chief Complaint: REASON FOR CONSULTATION: Atrial fibrillation and possible NSTEMI in the setting of COVID infection. I had the pleasure of reviewing the chart of Yao who is in the intensive care unit at [facility] in [place], [place]. I did not go in his room due to his COVID status. I did speak with his nurse as well as the emergency room physician. The patient had come to the hospital due to progressive shortness of breath. During his evaluation he was found to be in atrial fibrillation with a rapid ventricular rate and also COVID-positive. A while later, his troponin level came back positive consistent with a possible non-ST elevation myocardial infarction. At that time, a cardiology consultation was requested. The patient has not reported any chest discomfort. He was not reporting palpitations. He has not had any extensive peripheral edema. Certain portions of this document may have been dictated utilizing voice recognition technology. Inherent to this technology, typographical and grammatical errors may exist. As much as I am diligent to identify and correct these mistakes, some errors may remain in the document. Review of Systems-Cardiology Review of Systems Other comments Not obtained due to his COVID status. All Other Systems Reviewed Negative Unless Noted: Yes [id number] Hx Patient Social History Have you traveled recently?: No Alcohol Use?: No Pt feels they are or have been: No Immunizations Up To Date Tetanus Booster (TDap): Unknown Past Medical History PMH As described under Assessment. Allergies and Home Medications Allergies Coded Allergies: No Known Drug Allergies (Unverified , 06/04/20) Patient Home Medication List Home Medication List Reviewed: Yes Rivaroxaban (Xarelto Tablet) 20 Mg Tablet, 20 MG PO DAILY@1700, (Reported) Entered as Reported by: CHERYL YOUNG on 04/04/22 1349 Last Action: Reviewed Discontinued Medications Amiodarone HCl (Amiodarone HCl) 200 Mg Tablet, 200 MG PO UD Discontinued Reason: No Longer Taking Prescribed by: AUDELIA BEARD on 07/28/20 0920 Last Action: Discontinued Apixaban (Eliquis) 5 Mg Tablet, 5 MG PO BID, (Reported) Discontinued Reason: No Longer Taking Entered as Reported by: SHABANA PRIETO on 07/28/20808 Last Action: Discontinued Losartan Potassium (Losartan Potassium) 25 Mg Tablet, 25 MG PO DAILY Discontinued Reason: No Longer Taking Prescribed by: AUDELIA BEARD on 07/28/20919 Last Action: Discontinued Metoprolol Tartrate (Metoprolol Tartrate) 25 Mg Tablet, 25 MG PO BID, (Reported) Discontinued Reason: No Longer Taking Entered as Reported by: SHABANA PRIETO on 07/28/20808 Last Action: Discontinued Exam Vital Signs Vital Signs Date Time Temp Pulse Resp B/P (MAP) Pulse Ox O2 Delivery O2 Flow Rate FiO2 04/04/22 18:42 94 Room Air 04/04/22 18:00 77 67 109/79 2.00 04/04/22 16:00 35.9 04/04/22 15:43 30 Physical Exam Due to the patient's COVID status, I reviewed the patient from the doorway. General: The patient is not on a ventilator. HENT: Normocephalic. Atraumatic. Skin: There is no pallor. Neurologic: Oriented x3. Cranial nerves III through XII grossly intact. Moving all 4 extremities. Psychiatric: Appears cooperative. Labs Laboratory Tests Test 04/04/22 08:55 04/04/22 09:03 04/04/22 11:54 04/04/22 16:02 Range/Units White Blood Count 7.4 4.3-11.0 10^3/uL Red Blood Count 4.83 4.30-5.52 10^6/uL Hemoglobin 15.1 13.3-17.7 g/dL Hematocrit 47 40-54 % Mean Corpuscular Volume 98 80-99 fL Mean Corpuscular Hemoglobin 31 25-34 pg Mean Corpuscular Hemoglobin Concent 32 32-36 g/dL Red Cell Distribution Width 15.1 H 10.0-14.5 % Platelet Count 168 130-400 10^3/uL Mean Platelet Volume 9.2 9.0-12.2 fL Immature Granulocyte % (Auto) 0 % Neutrophils (%) (Auto) 73 42-75 % Lymphocytes (%) (Auto) 20 12-44 % Monocytes (%) (Auto) 7 0-12 % Eosinophils (%) (Auto) 0 0-10 % Basophils (%) (Auto) 0 0-10 % Neutrophils # (Auto) 5.3 1.8-7.8 10^3/uL Lymphocytes # (Auto) 1.5 1.0-4.0 10^3/uL Monocytes # (Auto) 0.5 0.0-1.0 10^3/uL Eosinophils # (Auto) 0.0 0.0-0.3 10^3/uL Basophils # (Auto) 0.0 0.0-0.1 10^3/uL Immature Granulocyte # (Auto) 0.0 0.0-0.1 10^3/uL Sodium Level 141 135-145 MMOL/L Potassium Level 4.5 3.6-5.0 MMOL/L Chloride Level 105 98-107 MMOL/L Carbon Dioxide Level 22 21-32 MMOL/L Anion Gap 14 5-14 MMOL/L Blood Urea Nitrogen 21 H 7-18 MG/DL Creatinine 1.78 H 0.60-1.30 MG/DL Estimat Glomerular Filtration Rate 41 BUN/Creatinine Ratio 12 Glucose Level 127 H 70-105 MG/DL Calcium Level 9.6 8.5-10.1 MG/DL Corrected Calcium 9.3 8.5-10.1 MG/DL Magnesium Level 2.2 1.6-2.4 MG/DL Total Bilirubin 2.8 H 0.1-1.0 MG/DL Aspartate Amino Transf (AST/SGOT) 23 5-34 U/L Alanine Aminotransferase (ALT/SGPT) 10 0-55 U/L Alkaline Phosphatase 70 40-136 U/L Troponin I 0.073 H 0.068 H <0.028 NG/ML B-Type Natriuretic Peptide 1153.1 H <100.0 PG/ML Total Protein 8.3 H 6.4-8.2 GM/DL Albumin 4.4 3.2-4.5 GM/DL Procalcitonin 0.05 <0.10 NG/ML Influenza Type A (RT-PCR) Not Detected Not Detecte Influenza Type B (RT-PCR) Not Detected Not Detecte SARS-CoV-2 RNA (RT-PCR) Detected H Not Detecte Bedside Blood Gas pH (LAB) 7.394 7.310-7.410 Bedside Blood Gas pCO2 (LAB) 36.4 L 41.0-51.0 mmHg Bedside Blood Gas pO2 (LAB) 78 L 80-105 mmHg Bedside Blood Gas HCO3 (LAB) 22.3 L 23.0-28.0 mmol/L POC Blood Gas Total CO2 Calc 23 L 24-29 mmol/L Bedside Bl Gas O2 Saturation (Calc) 96 95-98 % Bedside Arterial Blood Base Excess -3 L -2-3 mmol/L ECG Impression ECG Comment Atrial fibrillation with a rapid ventricular rate at 120 bpm with poor R wave progression and nonspecific ST-T wave changes. Diagnosis/Problems Diagnosis/Problems (1) Persistent atrial fibrillation Assessment & Plan: He had recently been started on dronedarone but apparently developed nausea and stopped the medication. Now he is in atrial fibrillation with rapid ventricular rate. He has been started on intravenous diltiazem. I will restart the metoprolol succinate that he was supposed to be taking at home. However, he has been noncompliant with medications in the past. I will hold off on restarting rivaroxaban in the event we decide to have him undergo a cardiac catheterization. (2) Troponin level elevated Assessment & Plan: I suspect he may have had a type II non-ST elevation myocard ial infarction due to the atrial fibrillation with a rapid ventricular rate and supply/demand mismatch. He was given aspirin in the emergency room. I will be resuming his beta-raffi. Troponin levels are flat and he has not been complaining of chest pain so I do not see any urgent need for cardiac catheterization at this time. Lipid panel has been ordered for tomorrow morning. (3) Primary hypertension Assessment & Plan: Metoprolol succinate has been ordered. As above, he has been noncompliant with his beta-raffi in the past. (4) COVID-19 virus infection Status: Acute Assessment & Plan: I suspect this is what is causing the shortness of breath and may have contributed to the tachycardia. The hospitalist is managing the COVID infection. (5) Obesity Assessment & Plan: He needs to work on weight loss. XIOMARA CAMPBELL JR, MD Apr 04, 2022 18:55
[2022-04-04] MEDS ORDERED: meTOproloL SUCCINATE 50 MG (TOPROL XL) TAB PO NR (19:00)
[2022-04-04] MEDS: APIXABAN 5 MG (ELIQUIS) TABLET PO SCH (19:57)
[2022-04-04] MEDS: SENNOSIDES 8.6 MG (SENOKOT) TAB PO SCH (20:04)
[2022-04-04] MEDS: DOCUSATE SODIUM 100 MG (COLACE) CAP PO SCH (20:04)
[2022-04-05] MEDS: RT-ALBUTEROL HFA 8.5 GM INHALER IH SCH ×6 (02:30→22:44)
[2022-04-05 05:42] LABS: BASOPHILS % (AUTO) 1 % (0-10); EOSINOPHILS % (AUTO) 1 % (0-10); HEMATOCRIT 41 % (40-54); HEMOGLOBIN 12.8 g/dL (13.3-17.7); LYMPHOCYTES # (AUTO) 1.5 10^3/uL (1.0-4.0); LYMPHOCYTES % (AUTO) 23 % (12-44); MEAN CORPUSCULAR HEMOGLOBIN 31 pg (25-34); MEAN CORPUSCULAR HGB CONC 32 g/dL (32-36); MEAN CORPUSCULAR VOLUME 97 fL (80-99); MEAN PLATELET VOLUME 9.5 fL (9.0-12.2); MONOCYTES # (AUTO) 0.4 10^3/uL (0.0-1.0); MONOCYTES % (AUTO) 6 % (0-12); NEUTROPHILS # (AUTO) 4.4 10^3/uL (1.8-7.8); NEUTROPHILS % (AUTO) 69 % (42-75); PLATELET COUNT 154 10^3/uL (130-400); WHITE BLOOD COUNT 6.4 10^3/uL (4.3-11.0)
[2022-04-05 06:06] LABS: ALBUMIN 3.6 GM/DL (3.2-4.5); CALCIUM 8.6 MG/DL (8.5-10.1)
[2022-04-05 06:08] LABS: TOTAL PROTEIN 6.8 GM/DL (6.4-8.2)
[2022-04-05 06:10] LABS: BILIRUBIN,TOTAL 1.8 MG/DL (0.1-1.0)
[2022-04-05 06:11] LABS: PHOSPHORUS 4.1 MG/DL (2.3-4.7)
[2022-04-05 06:12] LABS: CREATININE SERUM 1.62 MG/DL (0.60-1.30)
[2022-04-05 06:14] LABS: MAGNESIUM 2.1 MG/DL (1.6-2.4)
[2022-04-05] MEDS: MAGNESIUM 1 GM/100 ML IVPB 100 ML IV SCH (06:28)
[2022-04-05] MEDS: POTASSIUM CL 10MEQ/50ML IVPB 50 ML IV SCH (06:28)
[2022-04-05] MEDS: KCL 20 MEQ TAB (K-DUR) PO SCH (06:28)
--- NOTE | 2022-04-05 08:45 | Diagnostic Imaging Report ---
INDICATION: Covid positive. Comparison with 04/04/2022. FINDINGS: Cardiomegaly again noted. There has been development of bilateral perihilar infiltrates. No pneumothorax. Probable small left basilar pleural effusion. IMPRESSION: Cardiomegaly with bilateral perihilar infiltrates. Dictated by: Dictated on workstation # [id number]
[2022-04-05] MEDS: SENNOSIDES 8.6 MG (SENOKOT) TAB PO SCH ×2 (09:02→20:08)
[2022-04-05] MEDS: DOCUSATE SODIUM 100 MG (COLACE) CAP PO SCH ×2 (09:02→20:08)
[2022-04-05] MEDS: PANTOPRAZOLE 40 MG (PROTONIX) VIAL IV SCH (09:02)
[2022-04-05] MEDS: APIXABAN 5 MG (ELIQUIS) TABLET PO SCH ×2 (09:02→20:08)
[2022-04-05] MEDS: ASPIRIN E.C. 81 MG (ECOTRIN) TAB PO SCH (09:02)
[2022-04-05] MEDS: meTOproloL SUCCINATE 50 MG (TOPROL XL) TAB PO SCH (09:05)
--- NOTE | 2022-04-05 10:40 | Cardiology Progress Note ---
Subjective Date Seen by Provider: Apr 05, 2022 Time Seen by Provider: 08:35 Subjective/Events-last exam Due to COVID illness, patient was evaluated through glass door. Chart reviewed and discussed patients care plan with nurse. No physical examination done today. Objective-Cardiology Exam Last Set of Vital Signs Vital Signs 04/04/22 04/05/22 04/05/22 04/05/22 04/05/22 15:43 11:00 12:03 12:11 14:56 Temp 36.5 Pulse 65 Resp 30 B/P (MAP) 102/88 Pulse Ox 91 O2 Delivery Room Air O2 Flow Rate 30.00 FiO2 30 I&O Intake and Output 04/04/22 23:59 Intake Total 1350 ml Output Total 675 ml Balance 675 ml Intake Oral 600 ml IV Total 750 ml Output Urine Total 675 ml Daily Weight Change No General: Alert, Oriented X3 Neuro: Normal Speech Psych/Mental Status: Mental Status NL Results Lab Laboratory Tests 04/05/22 05:25 A/P-Cardiology Admission Diagnosis PAF COVID-19 HTN Assessment/Plan Paroxysmal atrial fibrillation, admitted with AFib with RVR. Afib diagnosed in May 2020 after sustaining a fall. Underwent KERRY with cardioversion on 07/28/2020. Becoming more persistent atrial fibrillation at this time. Had discussed with him last month possibility of repeating cardioversion, but patient decided against it. Was started on Multaq February 2022, discontinued medication d/t nausea. Currently slightly tachycardic, on cardizem gtt at this time, Eliquis. Will continue to monitor. [id number] score of 2, yearly risk of stroke without oral anticoagulation is 2.2 percent, maintained on Eliquis. Mildly elevated troponin, likely type II non-ST elevation myocardial infarction due to the atrial fibrillation with a rapid ventricular rate and supply/demand mismatch. He was given aspirin in the emergency room, beta raffi resumed. Troponin level trending down. He has not been complaining of chest pain so I do not see any urgent need for cardiac catheterization at this time. Consider stress testing as an outpatient. COVID-19 illness, management per medical services Hypertension, restarted home Toprol XL. Continue to monitor. Palpitation, noted to have frequent PVC's on EKG and loop recorder, tolerating Toprol XL. Continue to monitor Syncope, sustained a fall off a ladder with subarachnoid hemorrhage in May 2020, seen and treated in . Stress test done at on June 08, 2020 reporting no significant ischemia or infarction. Echocardiogram was normal Nonobstructive carotid artery stenosis, ultrasound was done in November 2021. Continue to monitor Patient was seen at bedside, he was sitting comfortably, I visited and talked to the patient but did not examine him due to the COVID condition. Chart was reviewed and discussed the management plan with Geri Heart rate is currently well controlled. Continue to monitor. No changes are recommended at this point Continue on beta-blockers and diltiazem Monitor heart rate and blood pressure. Patient has mild elevation in troponin could be secondary to COVID-19 or elisha nary artery disease, planning to do a stress test as an outpatient. Patient is currently not having any chest pain and no acute EKG changes noted. GERI KESSLER Apr 05, 2022 10:40 AUDELIA BEARD MD Apr 05, 2022 15:47
[2022-04-05 11:00] VITALS: BP 103/89
[2022-04-05] MEDS: REMDESIVIR INJ 100 MG in NS (IVPB) 230 ML IV SCH (11:24)
--- NOTE | 2022-04-05 11:51 | Tele-ICU Progress Note ---
Subjective Date Seen by a Provider: Apr 05, 2022 Time Seen by a Provider: 11:51 Subjective/Events-last exam (Tele-ICU Physician , Progress Note ) Available chart/ vitals / labs / Images reviewed Video assessment done using teleICU camera, rest of exam as per RN Discussed with RN Events overnight : Afebrile hemodynamically stable Respiratory - I/O = Drips: Pressors- no Consultants: Hospital course: (04/04) 66 y/o male admitted in ED with c/o of sob. .DX: Afib rvr, acute heart failure, Covid positve, Nstemi. A/P Lines : , (Central Line Necessity Reviewed) Landry: OG: Nutrition: Analgesia: Anxiety/ delirium VTE Prophylaxis: Stress Ulcer Prophylaxis: Plans in collaboration with bedside consultants and IM MDs. Discussed with RN to reach out if any questions or concerns A total of _ minutes of critical care time was devoted to this patient today, required to treat and/or prevent further deterioration of critical care condition ( as above ) . Sepsis Event Evaluation Height, Weight, BMI Height: '" Weight: lbs. oz. kg; 39.30 BMI Method: Exam Exam Patient acknowledged, consented, and participated in this virtual visit which was conducted using real time audio/video Vital Signs Date Time Temp Pulse Resp B/P (MAP) Pulse Ox O2 Delivery O2 Flow Rate FiO2 04/05/22 11:00 76 30 100 30.00 04/05/22 11:00 73 22 102/88 100 NIV Bilevel 30.00 04/05/22 10:00 81 22 82/64 100 NIV Bilevel 30.00 04/05/22 09:09 22 98 NIV Bilevel 30.00 04/05/22 09:00 92 Room Air 04/05/22 09:00 86 25 116/88 94 Nasal Cannula 2.00 04/05/22 08:00 90 12 131/113 89 Nasal Cannula 2.00 04/05/22 07:37 92 Room Air 04/05/22 07:24 91 04/05/22 07:00 105 129/104 94 Nasal Cannula 2.00 04/05/22 06:00 92 35 104/89 94 Nasal Cannula 2.00 04/05/22 05:00 98 15 107/85 94 Nasal Cannula 2.00 04/05/22 04:00 83 127/88 97 Nasal Cannula 2.00 04/05/22 04:00 96 Nasal Cannula 2.00 04/05/22 03:00 96 27 121/85 99 Nasal Cannula 2.00 04/05/22 02:31 98 Nasal Cannula 2.00 04/05/22 02:00 79 33 121/94 97 Nasal Cannula 2.00 04/05/22 01:00 73 04/05/22 01:00 73 20 124/106 94 Nasal Cannula 2.00 04/05/22 00:00 95 Nasal Cannula 2.00 04/05/22 00:00 77 32 112/76 92 Nasal Cannula 2.00 04/04/22 23:45 36.2 04/04/22 23:00 112 36 95/74 95 Nasal Cannula 2.00 04/04/22 22:00 95 Room Air 04/04/22 22:00 98 29 104/87 95 Nasal Cannula 2.00 04/04/22 21:22 85 33 96 Nasal Cannula 2.00 04/04/22 21:15 73 32 109/87 96 Room Air 04/04/22 20:00 96 Room Air 04/04/22 20:00 84 23 108/87 88 Room Air 04/04/22 19:48 35.9 04/04/22 19:02 86 04/04/22 19:00 78 30 118/81 96 Room Air 04/04/22 19:00 Room Air 04/04/22 18:42 94 Room Air 04/04/22 18:00 77 67 109/79 89 Nasal Cannula 2.00 04/04/22 17:00 107 45 150/127 97 Nasal Cannula 2.00 04/04/22 16:00 35.9 81 48 100 NIV Bilevel 30.00 04/04/22 15:58 35.9 04/04/22 15:43 97 NIV Bilevel 30 04/04/22 15:04 NIV Bilevel 30.00 04/04/22 15:00 90 74 130/105 98 Nasal Cannula 2.00 04/04/22 14:58 82 36 100 30.00 04/04/22 14:00 85 56 109/96 95 Nasal Cannula 2.00 04/04/22 13:00 108 49 124/96 96 Nasal Cannula 2.00 04/04/22 13:00 108 49 110/98 96 Nasal Cannula 2.00 04/04/22 12:38 73 04/04/22 12:00 96 29 115/82 97 Nasal Cannula 2.00 04/04/22 12:00 97 Nasal Cannula 2.00 I & O 04/05/22 07:00 Intake Total 1600 ml Output Total 1275 ml Balance 325 ml Height & Weight Height: '" Weight: lbs. oz. kg; 39.30 BMI Method: General Appearance: No Apparent Distress, WD/WN HEENT: PERRL/EOMI, TMs Normal, Normal ENT Inspection, Pharynx Normal Neck: Full Range of Motion, Normal Inspection, Non Tender, Supple, Carotid Bruit Respiratory: Chest Non Tender, Lungs Clear, No Accessory Muscle Use, No Respiratory Distress, Decreased Breath Sounds Cardiovascular: No Edema, No Gallop, No JVD, No Murmur, Normal Peripheral Puls es, Irregularly Irregular, Tachycardia Capillary Refill: Less Than 3 Seconds Extremity: Normal Capillary Refill, Normal Inspection, Normal Range of Motion, Non Tender, No Calf Tenderness, No Pedal Edema Neurologic/Psychiatric: Alert, Oriented x3, No Motor/Sensory Deficits, Normal Mood/Affect Skin: Normal Color, Warm/Dry Lymphatic: No Adenopathy Results Lab Laboratory Tests 04/04/22 08:55 04/05/22 05:25 Assessment/Plan Assessment/Plan 1 LAZARO SINGH MD Apr 05, 2022 11:51
--- NOTE | 2022-04-05 13:31 | Progress Note ---
KIRSTEN PEPPER A MED STUDENT 04/05/22 1331: Subjective Date Seen by a Provider: Apr 05, 2022 Time Seen by a Provider: 08:05 Subjective/Events-last exam Pt sitting on side of bed, without oxygen or bipap on this morning. States he does not like to wear the bipap because he is claustrophobic and he is tired of dealing with the wires and tubes, so he is not wearing his oxygen either. Pt does report he is feeling better today and has no concerns. Review of Systems General: No Chills, No Fatigue HEENT: No Head Aches, No Visual Changes Pulmonary: No Dyspnea, No Cough Cardiovascular: No: Chest Pain, Palpitations Gastrointestinal: No: Nausea, Vomiting Genitourinary: No Dysuria, No Frequency Musculoskeletal: No: neck pain, shoulder pain Neurological: No: Weakness, Numbness Objective Exam Last Set of Vital Signs Vital Signs Date Time Temp Pulse Resp B/P (MAP) Pulse Ox O2 Delivery O2 Flow Rate FiO2 04/05/22 12:11 65 04/05/22 12:03 36.5 Room Air 04/05/22 12:00 94 04/05/22 11:00 30 30.00 04/05/22 11:00 102/88 04/04/22 15:43 30 Capillary Refill : Less Than 3 Seconds I&O Intake and Output 04/05/22 00:00 Intake Total 1350 ml Output Total 675 ml Balance 675 ml Intake Oral 600 ml IV Total 750 ml Output Urine Total 675 ml Daily Weight Change No General: Alert, Oriented X3 HEENT: Atraumatic, PERRLA Neck: Supple, No JVD Lungs: Clear to Auscultation Heart: Regular Rate, No Murmurs Abdomen: Normal Bowel Sounds, Soft Extremities: Other (1+ pitting edema in LE) Skin: No Rashes, No Breakdown Neuro: Normal Speech, Normal Tone Psych/Mental Status: Mental Status NL, Mood NL Results Lab Laboratory Tests 04/04/22 16:02: Troponin I 0.068H 04/05/22 05:18: Bedside Blood Gas pH (LAB) 7.382, Bedside Blood Gas pCO2 (LAB) 42.2, Bedside Blood Gas pO2 (LAB) 64L, Bedside Blood Gas HCO3 (LAB) 25.1, POC Blood Gas Total CO2 Calc 26, Bedside Bl Gas O2 Saturation (Calc) 92L, Bedside Arterial Blood Base Excess 0 04/05/22 05:25: Troponin I 0.065H, White Blood Count 6.4, Red Blood Count 4.17L, Hemoglobin 12.8L, Hematocrit 41, Mean Corpuscular Volume 97, Mean Corpuscular Hemoglobin 31, Mean Corpuscular Hemoglobin Concent 32, Red Cell Distribution Width 14.9H, Platelet Count 154, Mean Platelet Volume 9.5, Immature Granulocyte % (Auto) 0, Neutrophils (%) (Auto) 69, Lymphocytes (%) (Auto) 23, Monocytes (%) (Auto) 6, Eosinophils (%) (Auto) 1, Basophils (%) (Auto) 1, Neutrophils # (Auto) 4.4, Lymphocytes # (Auto) 1.5, Monocytes # (Auto) 0.4, Eosinophils # (Auto) 0.0, Basophils # (Auto) 0.0, Immature Granulocyte # (Auto) 0.0, Sodium Level 140, Potassium Level 4.0, Chloride Level 106, Carbon Dioxide Level 21, Anion Gap 13, Blood Urea Nitrogen 30H, Creatinine 1.62H, Estimat Glomerular Filtration Rate 46, BUN/Creatinine Ratio 19, Glucose Level 111H, Calcium Level 8.6, Corrected Calcium 8.9, Phosphorus Level 4.1, Magnesium Level 2.1, Total Bilirubin 1.8H, Aspartate Amino Transf (AST/SGOT) 23, Alanine Aminotransferase (ALT/SGPT) 12, Alkaline Phosphatase 54, Total Protein 6.8, Albumin 3.6, Triglycerides Level 66, Cholesterol Level 85, LDL Cholesterol Direct 50, VLDL Cholesterol 13, HDL Cholesterol 29L Microbiology 04/04/22 MRSA Screen - Final, Complete MRSA not isolated Assessment/Plan Assessment/Plan Assess & Plan/Chief Complaint Afib with RVR Type II DE Heart failure COVID Afib/flutter with RVR -Arvind mario in ICU -Cardiology consulted, appreciate their assistance -Apixaban and aspirin 81 mg -Metoprolol Type II DE -Troponin trending down -EKG showed afib/flutter with RVR and PVCs with possible old anterior DE -Echo ordered Acute Heart failure -BNP 1153.1 yesterday -Lasix 40 mg IV given once in ED -Monitor urine output COVID -Remdesivir -CXR showed no acute abnormalities -Will monitor oxygen saturation closely, currently requiring 2L NC -D/C bipap -MAT protocol -Airborne isolation precaution Diet: Regular DVT prophylaxis: Apixaban Disposition: Pt likely to stay in ICU tonight and tomorrow d/t cardizem drip, possibly longer. Will continue to monitor closely in ICU. Clinical Quality Measures Admission Status Admission Dx Afib RVR AMI/AHF: ASA po Prior to arrival: No ALLY KENNEDY DO 04/06/22 0543: Subjective Subjective/Events-last exam Doing better No pain Dyspnea noted Cant withstand biPAP for long Review of Systems Pulmonary: Dyspnea, Cough Objective Exam General: Alert, Oriented X3, Cooperative, No Acute Distress Lungs: Clear to Auscultation, Normal Air Movement Psych/Mental Status: Mental Status NL, Mood NL Supervisory-Addendum Brief Verification & Attestation Participated in pt care: history, MDM, physical Personally performed: exam, history, MDM, supervision of care Care discussed with: Medical Student Procedures: n/a Results interpretation: Verified all documentation Verification and Attestation of Medical Student E/M Service A medical student performed and documented this service in my presence. I reviewed and verified all information documented by the medical student and made modifications to such information, when appropriate. I personally performed the physical exam and medical decision making. Ally Kennedy, Apr 06, 2022,05:42 KIRSTEN PEPPER MED STUDENT Apr 05, 2022 13:31 ALLY KENNEDY DO Apr 06, 2022 05:43
[2022-04-05] MEDS: dilTIAZem DRIP PRE-MIX 125 ML IV SCH (23:19)
[2022-04-06] MEDS: RT-ALBUTEROL HFA 8.5 GM INHALER IH SCH ×6 (02:53→22:24)
[2022-04-06 05:09] LABS: BASOPHILS % (AUTO) 0 % (0-10); EOSINOPHILS # (AUTO) 0.1 10^3/uL (0.0-0.3); EOSINOPHILS % (AUTO) 1 % (0-10); HEMATOCRIT 43 % (40-54); HEMOGLOBIN 13.7 g/dL (13.3-17.7); LYMPHOCYTES % (AUTO) 12 % (12-44); MEAN CORPUSCULAR HEMOGLOBIN 32 pg (25-34); MEAN CORPUSCULAR HGB CONC 32 g/dL (32-36); MEAN CORPUSCULAR VOLUME 99 fL (80-99); MEAN PLATELET VOLUME 9.6 fL (9.0-12.2); MONOCYTES # (AUTO) 0.5 10^3/uL (0.0-1.0); MONOCYTES % (AUTO) 6 % (0-12); NEUTROPHILS # (AUTO) 6.4 10^3/uL (1.8-7.8); NEUTROPHILS % (AUTO) 81 % (42-75); PLATELET COUNT 167 10^3/uL (130-400); WHITE BLOOD COUNT 7.9 10^3/uL (4.3-11.0)
[2022-04-06 05:21] LABS: ALBUMIN 3.9 GM/DL (3.2-4.5)
[2022-04-06 05:22] LABS: POTASSIUM 4.4 MMOL/L (3.6-5.0)
[2022-04-06 05:24] LABS: TOTAL PROTEIN 7.4 GM/DL (6.4-8.2)
[2022-04-06 05:26] LABS: BILIRUBIN,TOTAL 2.2 MG/DL (0.1-1.0)
[2022-04-06 05:27] LABS: PHOSPHORUS 4.1 MG/DL (2.3-4.7)
[2022-04-06 05:28] LABS: CREATININE SERUM 1.7 MG/DL (0.60-1.30)
[2022-04-06 05:31] LABS: MAGNESIUM 2.2 MG/DL (1.6-2.4)
[2022-04-06] MEDS: KCL 20 MEQ TAB (K-DUR) PO SCH (05:37)
[2022-04-06] MEDS: POTASSIUM CL 10MEQ/50ML IVPB 50 ML IV SCH (05:37)
[2022-04-06] MEDS: MAGNESIUM 1 GM/100 ML IVPB 100 ML IV SCH (05:37)
--- NOTE | 2022-04-06 08:19 | Cardiology Progress Note ---
Subjective Date Seen by Provider: Apr 06, 2022 Time Seen by Provider: 08:15 Subjective/Events-last exam Patient was seen at bedside, sitting comfortably Still having shortness of breath. Asking to go home Denied any chest pain Review of Systems General: No Chills, No Night Sweats; Fatigue; No Malaise, No Appetite, No Other HEENT: No Head Aches, No Visual Changes, No Eye Pain, No Ear Pain, No Dysphasia, No Sinus Congestion, No Post Nasal Drip, No Sore Throat, No Other Pulmonary: Dyspnea; No Cough, No Pleuritic Chest Pain, No Other Cardiovascular: No: Chest Pain, Palpitations, Orthopnea, Paroxysmal Noc. Dyspnea, Edema, Lt Headedness, Other Objective-Cardiology Exam Last Set of Vital Signs Vital Signs 04/04/22 04/06/22 04/06/22 04/06/22 15:43 05:00 06:00 07:00 Temp 36.2 Pulse 86 Resp 24 B/P (MAP) 107/77 Pulse Ox 95 O2 Delivery Nasal Cannula O2 Flow Rate 2.00 FiO2 30 I&O Intake and Output 04/06/22 00:00 Intake Total 1680 ml Output Total 1270 ml Balance 410 ml Intake Oral 1420 ml IV Total 260 ml Output Urine Total 1270 ml # Voids 1 # Bowel Movements 1 General: Alert, Oriented X3, Cooperative, No Acute Distress HEENT: Atraumatic, PERRLA Neck: Supple, No JVD Lungs: Clear to Auscultation, Normal Air Movement Heart: Regular Rate, Normal S1, Normal S2, No Murmurs Abdomen: Normal Bowel Sounds, Soft Extremities: No Clubbing, Other (1+ pitting edema in LE) Skin: No Rashes, No Breakdown Neuro: Normal Speech, Normal Tone Psych/Mental Status: Mental Status NL, Mood NL Results Lab Laboratory Tests 04/06/22 04:53 A/P-Cardiology Admission Diagnosis PAF COVID-19 HTN Assessment/Plan Paroxysmal atrial fibrillation, admitted with AFib with RVR. Afib diagnosed in May 2020 after sustaining a fall. Underwent KERRY with cardioversion on 07/28/2020. Becoming more persistent atrial fibrillation at this time. Had discussed with him last month possibility of repeating cardioversion, but patient decided against it. Was started on Multaq February 2022, discontinued medication d/t nausea. Switching Cardizem to oral, using Cardizem CD 120 mg daily Continue to monitor heart rate [id number] score of 2, yearly risk of stroke without oral anticoagulation is 2.2 percent, maintained on Eliquis. Mildly elevated troponin, likely type II non-ST elevation myocardial infarction due to the atrial fibrillation with a rapid ventricular rate and supply/demand mismatch. He was given aspirin in the emergency room, beta raffi resumed. Troponin level trending down. He has not been complaining of chest pain so I do not see any urgent need for cardiac catheterization at this time. Planning to do stress test as an outpatient Acute respiratory insufficiency, maintained on BiPAP secondary to COVID-19 illness Currently better but still having dyspnea at rest. Hypoxemia on ABG Managed by primary care team COVID-19 illness, management per medical services Hypertension, currently on Toprol-XL and adding Cardizem CD 120, monitor blood pressure Palpitation, noted to have frequent PVC's on EKG and loop recorder, continue to monitor Syncope, sustained a fall off a ladder with subarachnoid hemorrhage in May 2020, seen and treated in . Stress test done at on June 08, 2020 reporting no significant ischemia or infarction. Echocardiogram was normal Nonobstructive carotid artery stenosis, ultrasound was done in November 2021. Continue to monitor AUDELIA BEARD MD Apr 06, 2022 08:19
[2022-04-06] MEDS: ASPIRIN E.C. 81 MG (ECOTRIN) TAB PO SCH (08:22)
[2022-04-06] MEDS: DOCUSATE SODIUM 100 MG (COLACE) CAP PO SCH ×2 (08:22→20:16)
[2022-04-06] MEDS: meTOproloL SUCCINATE 50 MG (TOPROL XL) TAB PO SCH (08:22)
[2022-04-06] MEDS: SENNOSIDES 8.6 MG (SENOKOT) TAB PO SCH ×2 (08:22→20:16)
[2022-04-06] MEDS: PANTOPRAZOLE 40 MG (PROTONIX) VIAL IV SCH (08:22)
--- NOTE | 2022-04-06 08:42 | Diagnostic Imaging Report ---
Portable erect AP chest at 517h. INDICATION: Cough, COVID positive The cardiomegaly noted on the prior exam of 04/05/2022 is again evident and no different. The bilateral pulmonary infiltrates seen previously are also again visualized and unchanged. The mediastinum is not widened. The osseous structures are intact. The loop recorder device noted on the prior study is again visualized. IMPRESSION: There is persistent cardiomegaly and alveolar/interstitial pulmonary infiltrates bilaterally. When compared to the previous study there has been no significant change. Report was faxed to [facility] by jason at 8:40AM. Dictated by: Dictated on workstation # [id number]
--- NOTE | 2022-04-06 08:51 | Tele-ICU Progress Note ---
Subjective Date Seen by a Provider: Apr 06, 2022 Time Seen by a Provider: 08:51 Subjective/Events-last exam Available chart/vitals/labs/images reviewed. Video assessment done using telemetry ICU camera, rest of exam as per RN. Discussion with the RN, exam as per RN. Hospital course Patient today denies any chest pain or shortness of breath. He is on a 2 L of nasal cannula. IV Cardizem has been discontinued and started on oral Cardizem. Also started on oral anticoagulant therapy Sepsis Event Evaluation Height, Weight, BMI Height: '" Weight: lbs. oz. kg; 39.30 BMI Method: Exam Exam Patient acknowledged, consented, and participated in this virtual visit which was conducted using real time audio/video Vital Signs Date Time Temp Pulse Resp B/P (MAP) Pulse Ox O2 Delivery O2 Flow Rate FiO2 04/06/22 08:30 94 Nasal Cannula 2.00 04/06/22 08:24 36.3 04/06/22 07:00 86 04/06/22 06:00 71 24 95 Nasal Cannula 2.00 04/06/22 05:00 36.2 Nasal Cannula 2.00 04/06/22 05:00 75 25 107/77 97 Nasal Cannula 2.00 04/06/22 04:00 94 Room Air 04/06/22 04:00 90 32 117/82 93 Nasal Cannula 2.00 04/06/22 03:00 120/93 04/06/22 03:00 89 32 93 Nasal Cannula 2.00 04/06/22 02:53 93 Nasal Cannula 2.00 04/06/22 02:00 76 22 97 Nasal Cannula 2.00 04/06/22 01:00 72 04/06/22 01:00 72 41 97 Nasal Cannula 2.00 04/06/22 00:15 35.6 130 04/06/22 00:00 93 30 93 Nasal Cannula 2.00 04/05/22 23:09 94 Room Air 04/05/22 23:00 93 24 182/149 95 Nasal Cannula 2.00 04/05/22 22:44 98 Nasal Cannula 2.00 04/05/22 22:00 102 24 95/64 97 Nasal Cannula 2.00 04/05/22 21:00 Nasal Cannula 2.00 04/05/22 21:00 75 43 140/123 96 Nasal Cannula 2.00 04/05/22 20:00 104 44 97/87 90 Room Air 04/05/22 20:00 36.0 Room Air 04/05/22 20:00 94 Room Air 04/05/22 19:00 98 04/05/22 19:00 96 45 172/142 94 Room Air 04/05/22 19:00 Room Air 04/05/22 18:53 94 Room Air 04/05/22 18:00 96 18 95 NIV Bilevel 30.00 04/05/22 17:00 36.7 NIV Bilevel 30.00 04/05/22 17:00 106 18 108/92 95 NIV Bilevel 30.00 04/05/22 16:00 94 Room Air 04/05/22 16:00 91 14 104/86 93 Room Air 04/05/22 15:00 86 33 111/92 96 Room Air 04/05/22 14:56 91 Room Air 04/05/22 14:00 72 29 118/90 98 Room Air 04/05/22 13:00 90 26 109/91 89 Room Air 04/05/22 12:11 65 04/05/22 12:03 36.5 Room Air 04/05/22 12:00 82 44 133/106 93 NIV Bilevel 30.00 04/05/22 12:00 94 Room Air 04/05/22 11:00 76 30 100 30.00 04/05/22 11:00 73 22 102/88 100 NIV Bilevel 30.00 04/05/22 10:00 81 22 82/64 100 NIV Bilevel 30.00 04/05/22 09:09 22 98 NIV Bilevel 30.00 04/05/22 09:00 92 Room Air 04/05/22 09:00 86 25 116/88 94 Nasal Cannula 2.00 I & O 04/06/22 07:00 Intake Total 1730 ml Output Total 1030 ml Balance 700 ml Height & Weight Height: '" Weight: lbs. oz. kg; 39.30 BMI Method: General Appearance: No Apparent Distress, WD/WN HEENT: PERRL/EOMI, TMs Normal, Normal ENT Inspection, Pharynx Normal Neck: Full Range of Motion, Normal Inspection, Non Tender, Supple, Carotid Bruit Respiratory: Chest Non Tender, Lungs Clear, No Accessory Muscle Use, No Respiratory Distress, Decreased Breath Sounds Cardiovascular: No Edema, No Gallop, No JVD, No Murmur, Normal Peripheral Pulses, Irregularly Irregular, Tachycardia Capillary Refill: Less Than 3 Seconds Extremity: Normal Capillary Refill, Normal Inspection, Normal Range of Motion, Non Tender, No Calf Tenderness, No Pedal Edema Neurologic/Psychiatric: Alert, Oriented x3, No Motor/Sensory Deficits, Normal Mood/Affect Skin: Normal Color, Warm/Dry Lymphatic: No Adenopathy Results Lab Laboratory Tests 04/04/22 08:55 04/05/22 05:25 04/06/22 04:53 Assessment/Plan Assessment/Plan 1. Acute hypoxic respiratory failure clinically improving. 2. A. fib with RVR currently on oral Cardizem and rate controlled. 3. NSTEMI probably due to A. fib with RVR causing supplydemand mismatch, per to manage. 3. Continue remdesivir per protocol 4. COVID19 infection/on remdesivir therapy 5. Acute systolic congestive heart failure due to A. fib with RVR. 6. Hypertension Recommendations 1. Continue to wean oxygen as tolerated 2. A. fib, CHF and hypertension, cardiology managing. 3. DVT prophylaxis with oral anticoagulant which is also being used for stroke prevention Critical Care: Critically Ill Patient Time spent with patient (mins): 20 SIMONE MONCADA MD Apr 06, 2022 08:51
[2022-04-06] MEDS: dilTIAZem120 MG (CARDIZEM CD) CAP PO SCH (09:49)
[2022-04-06] MEDS: REMDESIVIR INJ 100 MG in NS (IVPB) 230 ML IV SCH (12:01)
[2022-04-06 12:16] VITALS: BP 100/55
--- NOTE | 2022-04-06 13:33 | Progress Note ---
KIRSTEN PEPPER A MED STUDENT 04/06/22 1333: Subjective Date Seen by a Provider: Apr 06, 2022 Time Seen by a Provider: 08:50 Subjective/Events-last exam Pt up in the chair eating breakfast this morning. States he is feeling well and ready to go home. Advised pt that his cardizem drip was stopped and he is now on an oral pill. Pt is still refusing to wear bipap. Review of Systems General: No Chills, No Fatigue HEENT: No Head Aches, No Visual Changes Pulmonary: No Dyspnea, No Cough Cardiovascular: No: Chest Pain, Palpitations Gastrointestinal: No: Nausea, Vomiting Genitourinary: No Dysuria, No Frequency Musculoskeletal: No: neck pain, shoulder pain Neurological: No: Weakness, Numbness Objective Exam Last Set of Vital Signs Vital Signs Date Time Temp Pulse Resp B/P (MAP) Pulse Ox O2 Delivery O2 Flow Rate FiO2 04/06/22 13:00 91 04/06/22 12:16 36.2 18 100/55 (70) 96 Nasal Cannula 2.00 04/04/22 15:43 30 Capillary Refill : Less Than 3 Seconds I&O Intake and Output 04/06/22 00:00 Intake Total 1680 ml Output Total 1270 ml Balance 410 ml Intake Oral 1420 ml IV Total 260 ml Output Urine Total 1270 ml # Voids 1 # Bowel Movements 1 General: Alert, Oriented X3 HEENT: Atraumatic, PERRLA Neck: Supple, No JVD Lungs: Clear to Auscultation, Normal Air Movement Heart: Other (irregularly irregular) Abdomen: Normal Bowel Sounds, Soft Extremities: No Clubbing, No Cyanosis Skin: No Rashes, No Breakdown Neuro: Normal Speech, Normal Tone Results Lab Laboratory Tests 04/06/22 04:53: White Blood Count 7.9, Red Blood Count 4.35, Hemoglobin 13.7, Hematocrit 43, Mean Corpuscular Volume 99, Mean Corpuscular Hemoglobin 32, Mean Corpuscular Hemoglobin Concent 32, Red Cell Distribution Width 15.2H, Platelet Count 167, Mean Platelet Volume 9.6, Immature Granulocyte % (Auto) 0, Neutrophils (%) (Auto) 81H, Lymphocytes (%) (Auto) 12, Monocytes (%) (Auto) 6, Eosinophils (%) (Auto) 1, Basophils (%) (Auto) 0, Neutrophils # (Auto) 6.4, Lymphocytes # (Auto) 1.0, Monocytes # (Auto) 0.5, Eosinophils # (Auto) 0.1, Basophils # (Auto) 0.0, Immature Granulocyte # (Auto) 0.0, Sodium Level 140, Potassium Level 4.4, Chloride Level 105, Carbon Dioxide Level 21, Anion Gap 14, Blood Urea Nitrogen 32H, Creatinine 1.70H, Estimat Glomerular Filtration Rate 44, BUN/Creatinine Ratio 19, Glucose Level 126H, Calcium Level 9.0, Corrected Calcium 9.1, Phosphorus Level 4.1, Magnesium Level 2.2, Total Bilirubin 2.2H, Aspartate Amino Transf (AST/SGOT) 23, Alanine Aminotransferase (ALT/SGPT) 13, Alkaline Phosphatase 66, Total Protein 7.4, Albumin 3.9 04/06/22 05:47: Bedside Blood Gas pH (LAB) 7.361, Bedside Blood Gas pCO2 (LAB) 41.6, Bedside Blood Gas pO2 (LAB) 64L, Bedside Blood Gas HCO3 (LAB) 23.5, POC Blood Gas Total CO2 Calc 25, Bedside Bl Gas O2 Saturation (Calc) 91L, Bedside Arterial Blood Base Excess -2 Microbiology 04/04/22 MRSA Screen - Final, Complete MRSA not isolated Assessment/Plan Assessment/Plan Assess & Plan/Chief Complaint Afib with RVR Type II [place] Heart failure COVID Afib/flutter with RVR -Cardizem drip transitioned to oral cardizem -Cardiology consulted, appreciate their assistance -Apixaban and aspirin 81 mg -Metoprolol Type II [place] -Troponin continues to trend down -EKG showed afib/flutter with RVR and PVCs with possible old anterior [place] Acute Heart failure -BNP 1153.1 on admission -Lasix 40 mg IV given once in ED -Monitor urine output COVID -Remdesivir -CXR showed no acute abnormalities -Will monitor oxygen saturation closely, currently requiring 2L NC -MAT protocol -Airborne isolation precaution Diet: Regular DVT prophylaxis: Apixaban Disposition: Will transfer pt to 4th floor today and likely d/c tomorrow if medically stable and in accordance with civil cad tech. Clinical Quality Measures Admission Status Admission Dx Afib RVR AMI/AHF: ASA po Prior to arrival: No ALLY KENNEDY DO 04/06/222052: Subjective Subjective/Events-last exam Patient doing much better Changed from Cardizem drip to p.o. Can tolerate BiPAP Supervisory-Addendum Brief Verification & Attestation Participated in pt care: history, MDM, physical Personally performed: exam, history, MDM, supervision of care Care discussed with: Medical Student Procedures: n/a Results interpretation: Verified all documentation Verification and Attestation of Medical Student E/M Service A medical student performed and documented this service in my presence. I reviewed and verified all information documented by the medical student and made modifications to such information, when appropriate. I personally performed the physical exam and medical decision making. Ally Kennedy, Apr 06, 2022,20:53 KIRSTEN PEPPER MED STUDENT Apr 06, 2022 13:33 ALLY KENNEDY DO Apr 06, 2022 20:53
[2022-04-06 15:45] VITALS: BP 110/75
[2022-04-06] MEDS ORDERED: RIVAROXABAN 20 MG TABLET (XARELTO) PO SCH (17:00)
[2022-04-06 19:21] VITALS: BP 111/73
[2022-04-07] VITALS: BP 104/73
[2022-04-07] MEDS: RT-ALBUTEROL HFA 8.5 GM INHALER IH SCH ×3 (02:41→10:24)
[2022-04-07 04:24] VITALS: BP 111/71
[2022-04-07 05:48] LABS: BASOPHILS % (AUTO) 0 % (0-10); EOSINOPHILS % (AUTO) 1 % (0-10); HEMATOCRIT 42 % (40-54); HEMOGLOBIN 13.2 g/dL (13.3-17.7); LYMPHOCYTES # (AUTO) 1.1 10^3/uL (1.0-4.0); LYMPHOCYTES % (AUTO) 18 % (12-44); MEAN CORPUSCULAR HEMOGLOBIN 31 pg (25-34); MEAN CORPUSCULAR HGB CONC 32 g/dL (32-36); MEAN CORPUSCULAR VOLUME 98 fL (80-99); MEAN PLATELET VOLUME 9.6 fL (9.0-12.2); MONOCYTES # (AUTO) 0.4 10^3/uL (0.0-1.0); MONOCYTES % (AUTO) 7 % (0-12); NEUTROPHILS # (AUTO) 4.4 10^3/uL (1.8-7.8); NEUTROPHILS % (AUTO) 73 % (42-75); PLATELET COUNT 157 10^3/uL (130-400); WHITE BLOOD COUNT 6.1 10^3/uL (4.3-11.0)
[2022-04-07 06:05] LABS: ALBUMIN 3.7 GM/DL (3.2-4.5); BILIRUBIN,TOTAL 2.7 MG/DL (0.1-1.0); CALCIUM 8.7 MG/DL (8.5-10.1); CREATININE SERUM 1.41 MG/DL (0.60-1.30); MAGNESIUM 2.2 MG/DL (1.6-2.4); POTASSIUM 4.4 MMOL/L (3.6-5.0); TOTAL PROTEIN 7.1 GM/DL (6.4-8.2)
[2022-04-07 07:52] VITALS: BP 105/73
[2022-04-07] MEDS: dilTIAZem120 MG (CARDIZEM CD) CAP PO SCH (09:18)
[2022-04-07] MEDS: ASPIRIN E.C. 81 MG (ECOTRIN) TAB PO SCH (09:18)
[2022-04-07] MEDS: meTOproloL SUCCINATE 50 MG (TOPROL XL) TAB PO SCH (09:18)
[2022-04-07] MEDS: DOCUSATE SODIUM 100 MG (COLACE) CAP PO SCH (09:19)
[2022-04-07] MEDS: PANTOPRAZOLE 40 MG (PROTONIX) VIAL IV SCH (09:20)
[2022-04-07] MEDS: SENNOSIDES 8.6 MG (SENOKOT) TAB PO SCH (09:20)
--- NOTE | 2022-04-07 09:48 | Progress Note - Hospitalist ---
KIRSTEN PEPPER A MED STUDENT 04/07/22 0948: Subjective HPI/CC On Admission Date Seen by Provider: Apr 07, 2022 Time Seen by Provider: 09:00 Afib with RVR Subjective/Events-last exam Yao is a 66 yo male admitted from ED for COVID, Afib with RVR and heart failure. Pt has past medical hx of Afib on apixaban, but not rate controlled and HTN. Pt was seen in ED on 04/04 for increasing SOA for two days. Lying flat makes the SOA worse. He also had palpitations as well. In the ED pt was found to be in Afib with RVR and COVID positive. BNP was 1153.1 and troponin ws 0.073. Pt was given initial cardizem dose and then started on drip. Cardiology was consulted. Pt was also given 500ml bolus of IV fluids, aspirin 324mg orally and lasix 40mg IV. Pt was admitted to ICU. Upon examination in the ICU the pt reports his SOA has already improved. 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 Pt was started on 2L NC and advised to use bipap as well. Pt was transitioned to oral cardizem from cardizem drip on 04/06 and moved to general medical floor. Pt continued to show improvements and was requriring 2-3L NC. Pt was deemed medically stable for discharge. Review of Systems General: No Chills, No Fatigue HEENT: No Head Aches, No Visual Changes Pulmonary: No Dyspnea, No Cough Cardiovascular: No: Chest Pain, Palpitations Gastrointestinal: No: Nausea, Vomiting Genitourinary: No Dysuria, No Frequency Musculoskeletal: No: neck pain, shoulder pain Neurological: No: Weakness, Numbness Objective Exam Vital Signs Vital Signs Date Time Temp Pulse Resp B/P (MAP) Pulse Ox O2 Delivery O2 Flow Rate FiO2 04/07/22 08:00 91 Room Air 04/07/22 07:52 36.3 70 18 105/73 (84) 3.00 04/04/22 15:43 30 Capillary Refill : Less Than 3 Seconds General Appearance: No Apparent Distress, WD/WN HEENT: PERRL/EOMI, Pharynx Normal Neck: Full Range of Motion, Normal Inspection Respiratory: Chest Non Tender, Lungs Clear, Normal Breath Sounds Cardiovascular: Regular Rate, Rhythm, No Murmur Gastrointestinal: Normal Bowel Sounds, Non Tender Extremity: Normal Capillary Refill, Non Tender Neurologic/Psychiatric: Alert, Oriented x3, Normal Mood/Affect Skin: Normal Color, Warm/Dry Lymphatic: No Adenopathy Results/Procedures Lab Laboratory Tests 04/07/22 05:20 Patient resulted labs reviewed. Assessment/Plan Assessment and Plan Assess & Plan/Chief Complaint Afib with RVR Type II [place] Heart failure COVID Afib/flutter with RVR -Cardizem drip transitioned to oral cardizem -Cardiology consulted, appreciate their assistance -Apixaban and aspirin 81 mg -Metoprolol Type II [place] -Troponin continues to trend down -EKG showed afib/flutter with RVR and PVCs with possible old anterior [place] Acute Heart failure -BNP 1153.1 on admission -Lasix 40 mg IV given once in ED -Monitor urine output COVID -Remdesivir -CXR showed no acute abnormalities -Will monitor oxygen saturation closely, currently requiring 2L NC -MAT protocol -Airborne isolation precaution Diet: Regular DVT prophylaxis: Apixaban Disposition: Possible d/c to home today or tomorrow. Clinical Quality Measures Admission Status Admission Dx Afib RVR AMI/AHF: ASA po Prior to arrival: ALLY Perry DO 04/07/222045: Supervisory-Addendum Brief Verification & Attestation Participated in pt care: history, MDM, physical Personally performed: exam, history, MDM, supervision of care Care discussed with: Medical Student Procedures: n/a Results interpretation: Verified all documentation Verification and Attestation of Medical Student E/M Service A medical student performed and documented this service in my presence. I reviewed and verified all information documented by the medical student and made modifications to such information, when appropriate. I personally performed the physical exam and medical decision making. Ally Kennedy, Apr 07, 2022,20:46 KIRSTEN PEPPER MED STUDENT Apr 07, 2022 09:48 ALLY KENNEDY DO Apr 07, 2022 20:46
[2022-04-07 11:02] VITALS: BP 111/76
[2022-04-07] MEDS: REMDESIVIR INJ 100 MG in NS (IVPB) 230 ML IV SCH (11:55)
--- NOTE | 2022-04-07 13:02 | Cardiology Progress Note ---
Subjective Date Seen by Provider: Apr 07, 2022 Time Seen by Provider: 13:02 Subjective/Events-last exam Patient was seen at bedside, sitting comfortably, feeling better Breathing better today. No new complaint Review of Systems General: No Chills, No Night Sweats, No Fatigue, No Malaise, No Appetite, No Other HEENT: No Head Aches, No Visual Changes, No Eye Pain, No Ear Pain, No Dysphasia, No Sinus Congestion, No Post Nasal Drip, No Sore Throat, No Other Pulmonary: Dyspnea; No Cough, No Pleuritic Chest Pain, No Other Cardiovascular: No: Chest Pain, Palpitations, Orthopnea, Paroxysmal Noc. Dyspnea, Edema, Lt Headedness, Other Objective-Cardiology Exam Last Set of Vital Signs Vital Signs 04/04/22 04/07/22 04/07/22 04/07/22 15:43 07:52 11:02 12:43 Temp 36.4 Pulse 81 Resp 18 B/P (MAP) 111/76 (88) Pulse Ox 94 O2 Delivery Room Air O2 Flow Rate 3.00 FiO2 30 I&O Intake and Output 04/07/22 00:00 Intake Total 1670 ml Output Total 710 ml Balance 960 ml Intake Oral 1420 ml IV Total 250 ml Output Urine Total 710 ml # Voids 2 General: Alert, Oriented X3 HEENT: Atraumatic, PERRLA Neck: Supple, No JVD Lungs: Clear to Auscultation, Normal Air Movement Heart: Normal S1, Normal S2, Other (irregularly irregular) Abdomen: Normal Bowel Sounds, Soft Extremities: No Clubbing, No Cyanosis Skin: No Rashes, No Breakdown Neuro: Normal Speech, Normal Tone Psych/Mental Status: Mental Status NL, Mood NL Results Lab Laboratory Tests 04/07/22 05:20 A/P-Cardiology Admission Diagnosis PAF COVID-19 HTN Assessment/Plan Paroxysmal atrial fibrillation, admitted with AFib with RVR. Afib diagnosed in May 2020 after sustaining a fall. Underwent KERRY with cardioversion on 07/28/2020. Becoming more persistent atrial fibrillation at this time. Had discussed with him last month possibility of repeating cardioversion, but patient decided against it. Was started on Multaq February 2022, discontinued medication d/t nausea. Switching Cardizem to oral, using Cardizem CD 120 mg daily Continue to monitor heart rate [id number] score of 2, yearly risk of stroke without oral anticoagulation is 2.2 percent, maintained on Eliquis. Mildly elevated troponin, likely type II non-ST elevation myocardial infarction due to the atrial fibrillation with a rapid ventricular rate and supply/demand mismatch. He was given aspirin in the emergency room, beta raffi resumed. Troponin level trending down. He has not been complaining of chest pain so I do not see any urgent need for cardiac catheterization at this time. Planning to do stress test as an outpatient Acute respiratory insufficiency, maintained on BiPAP secondary to COVID-19 illness Currently better but still having dyspnea at rest. Hypoxemia on ABG Managed by primary care team COVID-19 illness, management per medical services Hypertension, currently on Toprol-XL and adding Cardizem CD 120, monitor blood pressure Palpitation, noted to have frequent PVC's on EKG and loop recorder, continue to monitor Syncope, sustained a fall off a ladder with subarachnoid hemorrhage in May 2020, seen and treated in . Stress test done at on June 08, 2020 reporting no significant ischemia or infarction. Echocardiogram was normal Nonobstructive carotid artery stenosis, ultrasound was done in November 2021. Continue to monitor Patient is feeling better, okay for discharge from cardiology standpoint AUDELIA BEARD MD Apr 07, 2022 13:02
[2022-04-07] MEDS ORDERED: ALBU8.5H9 IH (13:25)
[2022-04-07] MEDS ORDERED: ASPI-1238 PO (13:25)
[2022-04-07] MEDS ORDERED: METO50TA7 PO (13:25)
[2022-04-07] MEDS ORDERED: DILT-27 PO (13:25)
--- NOTE | 2022-04-07 13:25 | Discharge Summary ---
Diagnosis/Chief Complaint Date of Admission Apr 04, 2022 at 10:23 Date of Discharge Discharge Date: Apr 07, 2022 Discharge Diagnosis AF RVR COVID Reason Hospital Visit CC: AF RVR with COVID HPI: This is a 66yoM clinic patient of mine with known AF with recent med changes not tolerated Discharge Summary Discharge Physical Examination Allergies: Coded Allergies: No Known Drug Allergies (Unverified , 06/04/20) Vitals & I&Os Vital Signs Date Time Temp Pulse Resp B/P (MAP) Pulse Ox O2 Delivery O2 Flow Rate FiO2 04/07/22 13:52 36.4 81 18 111/76 94 Room Air 3.00 04/04/22 15:43 30 General Appearance: Alert, Oriented X3, Cooperative Respiratory: Clear to Auscultation Cardiovascular: Regular Rate Neuro: Normal Gait, Normal Speech, Strength at 5/5 X4 Ext Psych/Mental Status: Mental Status NL Hospital Course Was the Problem List Reviewed?: Yes Yao is a 66 yo male admitted from ED for COVID, Afib with RVR and heart f ailure. Pt has past medical hx of Afib on apixaban, but not rate controlled and HTN. Pt was seen in ED on 04/04 for increasing SOA for two days. Lying flat makes the SOA worse. He also had palpitations as well. In the ED pt was found to be in Afib with RVR and COVID positive. BNP was 1153.1 and troponin ws 0.073. Pt was given initial cardizem dose and then started on drip. Cardiology was consulted. Pt was also given 500ml bolus of IV fluids, aspirin 324mg orally and lasix 40mg IV. Pt was admitted to ICU. Upon examination in the ICU the pt reports his SOA has already improved. Pt has regular follow ups with Dr. Uribe, area development manager who recently started the pt on dronedarone, but the pt states it made him feel funny, so he stopped taking it. Pt was started on 2L NC and advised to use bipap as well. Pt was transitioned to oral cardizem from cardizem drip on 04/06 and moved to general medical floor. Pt continued to show improvements and was requriring 2-3L NC. Pt was deemed medically stable for discharge. Labs (last 24 hrs) Laboratory Tests 04/04/22 08:55: White Blood Count 7.4, Red Blood Count 4.83, Hemoglobin 15.1, Hematocrit 47, Mean Corpuscular Volume 98, Mean Corpuscular Hemoglobin 31, Mean Corpuscular Hemoglobin Concent 32, Red Cell Distribution Width 15.1H, Platelet Count 168, Mean Platelet Volume 9.2, Immature Granulocyte % (Auto) 0, Neutrophils (%) (Auto) 73, Lymphocytes (%) (Auto) 20, Monocytes (%) (Auto) 7, Eosinophils (%) (Auto) 0, Basophils (%) (Auto) 0, Neutrophils # (Auto) 5.3, Lymphocytes # (Auto) 1.5, Monocytes # (Auto) 0.5, Eosinophils # (Auto) 0.0, Basophils # (Auto) 0.0, Immature Granulocyte # (Auto) 0.0, Sodium Level 141, Potassium Level 4.5, Chloride Level 105, Carbon Dioxide Level 22, Anion Gap 14, Blood Urea Nitrogen 21H, Creatinine 1.78H, Estimat Glomerular Filtration Rate 41, BUN/Creatinine Ratio 12, Glucose Level 127H, Calcium Level 9.6, Corrected Calcium 9.3, Magnesium Level 2.2, Total Bilirubin 2.8H, Aspartate Amino Transf (AST/SGOT) 23, Alanine Aminotransferase (ALT/SGPT) 10, Alkaline Phosphatase 70, Troponin I 0.073H, B-Type Natriuretic Peptide 1153.1H, Total Protein 8.3H, Albumin 4.4, Procalcitonin 0.05 04/04/22 09:03: Influenza Type A (RT-PCR) Not Detected, Influenza Type B (RT-PCR) Not Detected, SARS-CoV-2 RNA (RT-PCR) DetectedH 04/04/22 11:54: Bedside Blood Gas pH (LAB) 7.394, Bedside Blood Gas pCO2 (LAB) 36.4L, Bedside Blood Gas pO2 (LAB) 78L, Bedside Blood Gas HCO3 (LAB) 22.3L, POC Blood Gas Total CO2 Calc 23L, Bedside Bl Gas O2 Saturation (Calc) 96, Bedside Arterial Blood Base Excess -3L 04/04/22 16:02: Troponin I 0.068H 04/05/22 05:18: Bedside Blood Gas pH (LAB) 7.382, Bedside Blood Gas pCO2 (LAB) 42.2, Bedside Blood Gas pO2 (LAB) 64L, Bedside Blood Gas HCO3 (LAB) 25.1, POC Blood Gas Total CO2 Calc 26, Bedside Bl Gas O2 Saturation (Calc) 92L, Bedside Arterial Blood Base Excess 0 04/05/22 05:25: White Blood Count 6.4, Red Blood Count 4.17L, Hemoglobin 12.8L, Hematocrit 41, Mean Corpuscular Volume 97, Mean Corpuscular Hemoglobin 31, Mean Corpuscular Hemoglobin Concent 32, Red Cell Distribution Width 14.9H, Platelet Count 154, Mean Platelet Volume 9.5, Immature Granulocyte % (Auto) 0, Neutrophils (%) (Auto) 69, Lymphocytes (%) (Auto) 23, Monocytes (%) (Auto) 6, Eosinophils (%) (Auto) 1, Basophils (%) (Auto) 1, Neutrophils # (Auto) 4.4, Lymphocytes # (Auto) 1.5, Monocytes # (Auto) 0.4, Eosinophils # (Auto) 0.0, Basophils # (Auto) 0.0, Immature Granulocyte # (Auto) 0.0, Sodium Level 140, Potassium Level 4.0, Chloride Level 106, Carbon Dioxide Level 21, Anion Gap 13, Blood Urea Nitrogen 30H, Creatinine 1.62H, Estimat Glomerular Filtration Rate 46, BUN/Creatinine Ratio 19, Glucose Level 111H, Calcium Level 8.6, Corrected Calcium 8.9, Phosphorus Level 4.1, Magnesium Level 2.1, Total Bilirubin 1.8H, Aspartate Amino Transf (AST/SGOT) 23, Alanine Aminotransferase (ALT/SGPT) 12, Alkaline Phosphatase 54, Troponin I 0.065H, Total Protein 6.8, Albumin 3.6, Triglycerides Level 66, Cholesterol Level 85, LDL Cholesterol Direct 50, VLDL Cholesterol 13, HDL Cholesterol 29L 04/06/22 04:53: White Blood Count 7.9, Red Blood Count 4.35, Hemoglobin 13.7, Hematocrit 43, Mean Corpuscular Volume 99, Mean Corpuscular Hemoglobin 32, Mean Corpuscular Hemoglobin Concent 32, Red Cell Distribution Width 15.2H, Platelet Count 167, Mean Platelet Volume 9.6, Immature Granulocyte % (Auto) 0, Neutrophils (%) (Auto) 81H, Lymphocytes (%) (Auto) 12, Monocytes (%) (Auto) 6, Eosinophils (%) (Auto) 1, Basophils (%) (Auto) 0, Neutrophils # (Auto) 6.4, Lymphocytes # (Auto) 1.0, Monocytes # (Auto) 0.5, Eosinophils # (Auto) 0.1, Basophils # (Auto) 0.0, Immature Granulocyte # (Auto) 0.0, Sodium Level 140, Potassium Level 4.4, Chloride Level 105, Carbon Dioxide Level 21, Anion Gap 14, Blood Urea Nitrogen 32H, Creatinine 1.70H, Estimat Glomerular Filtration Rate 44, BUN/Creatinine Ratio 19, Glucose Level 126H, Calcium Level 9.0, Corrected Calcium 9.1, Phosphorus Level 4.1, Magnesium Level 2.2, Total Bilirubin 2.2H, Aspartate Amino Transf (AST/SGOT) 23, Alanine Aminotransferase (ALT/SGPT) 13, Alkaline Phosphatase 66, Total Protein 7.4, Albumin 3.9 04/06/22 05:47: Bedside Blood Gas pH (LAB) 7.361, Bedside Blood Gas pCO2 (LAB) 41.6, Bedside Blood Gas pO2 (LAB) 64L, Bedside Blood Gas HCO3 (LAB) 23.5, POC Blood Gas Total CO2 Calc 25, Bedside Bl Gas O2 Saturation (Calc) 91L, Bedside Arterial Blood Base Excess -2 04/07/22 05:00: Bedside Blood Gas pH (LAB) 7.391, Bedside Blood Gas pCO2 (LAB) 41.9, Bedside Blood Gas pO2 (LAB) 89, Bedside Blood Gas HCO3 (LAB) 25.4, POC Blood Gas Total CO2 Calc 27, Bedside Bl Gas O2 Saturation (Calc) 97, Bedside Arterial Blood Base Excess 1 04/07/22 05:20: White Blood Count 6.1, Red Blood Count 4.23L, Hemoglobin 13.2L, Hematocrit 42, Mean Corpuscular Volume 98, Mean Corpuscular Hemoglobin 31, Mean Corpuscular Hemoglobin Concent 32, Red Cell Distribution Width 15.2H, Platelet Count 157, Mean Platelet Volume 9.6, Immature Granulocyte % (Auto) 1, Neutrophils (%) (Auto) 73, Lymphocytes (%) (Auto) 18, Monocytes (%) (Auto) 7, Eosinophils (%) (Auto) 1, Basophils (%) (Auto) 0, Neutrophils # (Auto) 4.4, Lymphocytes # (Auto) 1.1, Monocytes # (Auto) 0.4, Eosinophils # (Auto) 0.0, Basophils # (Auto) 0.0, Immature Granulocyte # (Auto) 0.0, Sodium Level 139, Potassium Level 4.4, Chloride Level 105, Carbon Dioxide Level 23, Anion Gap 11, Blood Urea Nitrogen 29H, Creatinine 1.41H, Estimat Glomerular Filtration Rate 55, BUN/Creatinine Ratio 21, Glucose Level 106H, Calcium Level 8.7, Corrected Calcium 8.9, Magnesium Level 2.2, Total Bilirubin 2.7H, Aspartate Amino Transf (AST/SGOT) 20, Alanine Aminotransferase (ALT/SGPT) 13, Alkaline Phosphatase 71, Total Protein 7.1, Albumin 3.7 04/07/22 06:04: Glucometer 117H Microbiology 04/04/22 MRSA Screen - Final, Complete MRSA not isolated Pending Labs Microbiology Date/Time Source Procedure Growth Status 04/04/22 11:27 Nasal MRSA Screen - Final MRSA not isolated Complete Laboratory Tests 04/04/22 08:55: White Blood Count 7.4, Red Blood Count 4.83, Hemoglobin 15.1, Hematocrit 47, Mean Corpuscular Volume 98, Mean Corpuscular Hemoglobin 31, Mean Corpuscular Hemoglobin Concent 32, Red Cell Distribution Width 15.1, Platelet Count 168, Mean Platelet Volume 9.2, Immature Granulocyte % (Auto) 0, Neutrophils (%) (Auto) 73, Lymphocytes (%) (Auto) 20, Monocytes (%) (Auto) 7, Eosinophils (%) (Auto) 0, Basophils (%) (Auto) 0, Neutrophils # (Auto) 5.3, Lymphocytes # (Auto) 1.5, Monocytes # (Auto) 0.5, Eosinophils # (Auto) 0.0, Basophils # (Auto) 0.0, Immature Granulocyte # (Auto) 0.0, Sodium Level 141, Potassium Level 4.5, Chloride Level 105, Carbon Dioxide Level 22, Anion Gap 14, Blood Urea Nitrogen 21, Creatinine 1.78, Estimat Glomerular Filtration Rate 41, BUN/Creatinine Ratio 12, Glucose Level 127, Calcium Level 9.6, Corrected Calcium 9.3, Magnesium Level 2.2, Total Bilirubin 2.8, Aspartate Amino Transf (AST/SGOT) 23, Alanine Aminotransferase (ALT/SGPT) 10, Alkaline Phosphatase 70, Troponin I 0.073, B- Type Natriuretic Peptide 1153.1, Total Protein 8.3, Albumin 4.4, Procalcitonin 0.05 04/04/22 09:03: Influenza Type A (RT-PCR) Not Detected, Influenza Type B (RT-PCR) Not Detected, SARS-CoV-2 RNA (RT-PCR) Detected 04/04/22 11:54: Bedside Blood Gas pH (LAB) 7.394, Bedside Blood Gas pCO2 (LAB) 36.4, Bedside Blood Gas pO2 (LAB) 78, Bedside Blood Gas HCO3 (LAB) 22.3, POC Blood Gas Total CO2 Calc 23, Bedside Bl Gas O2 Saturation (Calc) 96, Bedside Arterial Blood Base Excess -3 04/04/22 16:02: Troponin I 0.068 04/05/22 05:18: Bedside Blood Gas pH (LAB) 7.382, Bedside Blood Gas pCO2 (LAB) 42.2, Bedside Blood Gas pO2 (LAB) 64, Bedside Blood Gas HCO3 (LAB) 25.1, POC Blood Gas Total CO2 Calc 26, Bedside Bl Gas O2 Saturation (Calc) 92, Bedside Arterial Blood Base Excess 0 04/05/22 05:25: White Blood Count 6.4, Red Blood Count 4.17, Hemoglobin 12.8, Hematocrit 41, Mean Corpuscular Volume 97, Mean Corpuscular Hemoglobin 31, Mean Corpuscular Hemoglobin Concent 32, Red Cell Distribution Width 14.9, Platelet Count 154, Mean Platelet Volume 9.5, Immature Granulocyte % (Auto) 0, Neutrophils (%) (Auto) 69, Lymphocytes (%) (Auto) 23, Monocytes (%) (Auto) 6, Eosinophils (%) (Auto) 1, Basophils (%) (Auto) 1, Neutrophils # (Auto) 4.4, Lymphocytes # (Auto) 1.5, Monocytes # (Auto) 0.4, Eosinophils # (Auto) 0.0, Basophils # (Auto) 0.0, Immature Granulocyte # (Auto) 0.0, Sodium Level 140, Potassium Level 4.0, Chloride Level 106, Carbon Dioxide Level 21, Anion Gap 13, Blood Urea Nitrogen 30, Creatinine 1.62, Estimat Glomerular Filtration Rate 46, BUN/Creatinine Ratio 19, Glucose Level 111, Calcium Level 8.6, Corrected Calcium 8.9, Phosphorus Level 4.1, Magnesium Level 2.1, Total Bilirubin 1.8, Aspartate Amino Transf ( AST/SGOT) 23, Alanine Aminotransferase (ALT/SGPT) 12, Alkaline Phosphatase 54, Troponin I 0.065, Total Protein 6.8, Albumin 3.6, Triglycerides Level 66, Cholesterol Level 85, LDL Cholesterol Direct 50, VLDL Cholesterol 13, HDL Cholesterol 29 04/06/22 04:53: White Blood Count 7.9, Red Blood Count 4.35, Hemoglobin 13.7, Hematocrit 43, Mean Corpuscular Volume 99, Mean Corpuscular Hemoglobin 32, Mean Corpuscular Hemoglobin Concent 32, Red Cell Distribution Width 15.2, Platelet Count 167, Me an Platelet Volume 9.6, Immature Granulocyte % (Auto) 0, Neutrophils (%) (Auto) 81, Lymphocytes (%) (Auto) 12, Monocytes (%) (Auto) 6, Eosinophils (%) (Auto) 1, Basophils (%) (Auto) 0, Neutrophils # (Auto) 6.4, Lymphocytes # (Auto) 1.0, Monocytes # (Auto) 0.5, Eosinophils # (Auto) 0.1, Basophils # (Auto) 0.0, Immature Granulocyte # (Auto) 0.0, Sodium Level 140, Potassium Level 4.4, Chloride Level 105, Carbon Dioxide Level 21, Anion Gap 14, Blood Urea Nitrogen 32, Creatinine 1.70, Estimat Glomerular Filtration Rate 44, BUN/Creatinine Ratio 19, Glucose Level 126, Calcium Level 9.0, Corrected Calcium 9.1, Phosphorus Level 4.1, Magnesium Level 2.2, Total Bilirubin 2.2, Aspartate Amino Transf (AST/SGOT) 23, Alanine Aminotransferase (ALT/SGPT) 13, Alkaline Phosphatase 66, Total Protein 7.4, Albumin 3.9 04/06/22 05:47: Bedside Blood Gas pH (LAB) 7.361, Bedside Blood Gas pCO2 (LAB) 41.6, Bedside Blood Gas pO2 (LAB) 64, Bedside Blood Gas HCO3 (LAB) 23.5, POC Blood Gas Total CO2 Calc 25, Bedside Bl Gas O2 Saturation (Calc) 91, Bedside Arterial Blood Base Excess -2 04/07/22 05:00: Bedside Blood Gas pH (LAB) 7.391, Bedside Blood Gas pCO2 (LAB) 41.9, Bedside Blood Gas pO2 (LAB) 89, Bedside Blood Gas HCO3 (LAB) 25.4, POC Blood Gas Total CO2 Calc 27, Bedside Bl Gas O2 Saturation (Calc) 97, Bedside Arterial Blood Base Excess 1 04/07/22 05:20: White Blood Count 6.1, Red Blood Count 4.23, Hemoglobin 13.2, Hematocrit 42, Mean Corpuscular Volume 98, Mean Corpuscular Hemoglobin 31, Mean Corpuscular Hemoglobin Concent 32, Red Cell Distribution Width 15.2, Platelet Count 157, Mean Platelet Volume 9.6, Immature Granulocyte % (Auto) 1, Neutrophils (%) (Auto) 73, Lymphocytes (%) (Auto) 18, Monocytes (%) (Auto) 7, Eosinophils (%) (Auto) 1, Basophils (%) (Auto) 0, Neutrophils # (Auto) 4.4, Lymphocytes # (Auto) 1.1, Monocytes # (Auto) 0.4, Eosinophils # (Auto) 0.0, Basophils # (Auto) 0.0, Immature Granulocyte # (Auto) 0.0, Sodium Level 139, Potassium Level 4.4, Chloride Level 105, Carbon Dioxide Level 23, Anion Gap 11, Blood Urea Nitrogen 29, Creatinine 1.41, Estimat Glomerular Filtration Rate 55, BUN/Creatinine Ratio 21, Glucose Level 106, Calcium Level 8.7, Corrected Calcium 8.9, Magnesium Level 2.2, Total Bilirubin 2.7, Aspartate Amino Transf (AST/SGOT) 20, Alanine Aminotransferase (ALT/SGPT) 13, Alkaline Phosphatase 71, Total Protein 7.1, Albumin 3.7 04/07/22 06:04: Glucometer 117 Discharge Home Medications: Active Scripts Active Aspirin EC (Aspirin) 81 Mg Tablet.dr 81 Mg PO DAILY Diltiazem 24Hr ER (Diltiazem HCl) 120 Mg Cap.er.24h 120 Mg PO DAILY Metoprolol Succinate 50 Mg Tab.er.24h 50 Mg PO DAILY Proair Hfa (Albuterol Sulfate) 90 Mcg Hfa.aer.ad 0 Gm IH RTQ4HR 2 puffs q4hrs prn Reported Xarelto Tablet (Rivaroxaban) 20 Mg Tablet 20 Mg PO DAILY@1700 Instructions to patient/family Please see electronic discharge instructions given to patient. Diagnosis/Problems Diagnosis/Problems (1) Atrial fibrillation with RVR Status: Acute (2) COVID-19 virus infection Status: Acute (3) Non-STEMI (non-ST elevated myocardial infarction) Status: Acute (4) Acute heart failure Status: Acute Qualifiers: Qualified Codes: I50.9 - Heart failure, unspecified Clinical Quality Measures AMI/AHF: ASA po Prior to arrival: GISELLA Perry 29, 2022 13:25
[2022-04-07 13:52] VITALS: BP 111/76
== END 2022-04-07 15:30 | disposition home or self-care (01) | DRG 177 ==
LOC: EDUNIT# 08:45 → ER 08:47 → ICU 10:23 → 4TH 04-06 13:18
PROVIDERS: ADMIT Internal Medicine; ATTEND Internal Medicine
PROC: 8E0ZXY6 Isolation (ICD-10-PCS; principal; 2022-04-04)
PROC: XW033E5 Introduction of Remdesivir Anti-infective into Peripheral Vein, Percutaneous Approach, New Technology Group 5 (ICD-10-PCS; 2022-04-04)
PROC: 5A09357 Assistance with Respiratory Ventilation, Less than 24 Consecutive Hours, Continuous Positive Airway Pressure (ICD-10-PCS; 2022-04-04)
DX: U07.1 COVID-19 (principal); I21.A1 Myocardial infarction type 2; J96.01 Acute respiratory failure with hypoxia; I50.21 Acute systolic (congestive) heart failure; I48.92 Unspecified atrial flutter; I48.19 Other persistent atrial fibrillation; Z28.310 Unvaccinated for COVID-19; I11.0 Hypertensive heart disease with heart failure; E78.00 Pure hypercholesterolemia, unspecified; Z86.73 Personal history of transient ischemic attack (TIA), and cerebral infarction without residual deficits; I65.29 Occlusion and stenosis of unspecified carotid artery; I25.10 Atherosclerotic heart disease of native coronary artery without angina pectoris; E66.9 Obesity, unspecified; Z68.37 Body mass index [BMI] 37.0-37.9, adult
CPT/HCPCS: 36415; 71045; 80053; 80061; 82805; 82947; 83735; 83880; 84100; 84145; 84484; 85025; 87081; 87636; 93005; 93041; 94640; 94660; 94760; 94761

== ENCOUNTER 2022-04-13 04:25 | Inpatient (IN) | payer MEDICARE, BC ==
[~2022-04-13] VITALS: Ht 170.2 cm; Wt 109.8 kg
[~2022-04-13 04:25] MED LIST changes: +ALBU8.5H9 IH; +ASPI-1238 PO; +DILT-27 PO; +METO50TA7 PO; +RIVA20TA2 PO
[2022-04-13 04:59] LABS: BASOPHILS % (AUTO) 0 % (0-10); EOSINOPHILS # (AUTO) 0.1 10^3/uL (0.0-0.3); EOSINOPHILS % (AUTO) 1 % (0-10); HEMATOCRIT 43 % (40-54); HEMOGLOBIN 14.1 g/dL (13.3-17.7); LYMPHOCYTES # (AUTO) 1.2 10^3/uL (1.0-4.0); LYMPHOCYTES % (AUTO) 15 % (12-44); MEAN CORPUSCULAR HEMOGLOBIN 32 pg (25-34); MEAN CORPUSCULAR HGB CONC 33 g/dL (32-36); MEAN CORPUSCULAR VOLUME 98 fL (80-99); MEAN PLATELET VOLUME 9.2 fL (9.0-12.2); MONOCYTES # (AUTO) 0.5 10^3/uL (0.0-1.0); MONOCYTES % (AUTO) 6 % (0-12); NEUTROPHILS # (AUTO) 6.3 10^3/uL (1.8-7.8); NEUTROPHILS % (AUTO) 77 % (42-75); PLATELET COUNT 194 10^3/uL (130-400); WHITE BLOOD COUNT 8.1 10^3/uL (4.3-11.0)
[2022-04-13 05:16] LABS: ALBUMIN 3.9 GM/DL (3.2-4.5)
[2022-04-13 05:18] LABS: CALCIUM 9.1 MG/DL (8.5-10.1)
[2022-04-13 05:19] LABS: PROTHROMBIN TIME PATIENT 31.4 SEC (12.2-14.7); TOTAL PROTEIN 7.7 GM/DL (6.4-8.2)
[2022-04-13 05:21] LABS: BILIRUBIN,TOTAL 3.3 MG/DL (0.1-1.0)
[2022-04-13 05:23] LABS: CREATININE SERUM 1.52 MG/DL (0.60-1.30)
[2022-04-13 05:25] LABS: MAGNESIUM 2.4 MG/DL (1.6-2.4)
[2022-04-13] MEDS ORDERED: dilTIAZem DRIP PRE-MIX 125 ML IV SCH (05:30)
--- NOTE | 2022-04-13 05:54 | Diagnostic Imaging Report ---
CHEST 1 VIEW, AP/PA ONLY Indication: Chest pain. Comparison: 04/06/2022 Findings: Persistent cardiomegaly with central vascular indistinctness. No pleural effusion or pneumothorax. Impression: 1. Stable cardiomegaly with mild pulmonary edema. Dictated by: Dictated on workstation # [id number]
[2022-04-13] MEDS ORDERED: KCL 10 MEQ TAB (MICRO K) PO ONE (06:15)
[2022-04-13] MEDS ORDERED: FUROSEMIDE 40 MG/4 ML INJ (LASIX) IVP ONE (06:15)
--- NOTE | 2022-04-13 06:50 | ED General ---
General Chief Complaint: Respiratory Problems Stated Complaint: SOB Nursing Triage Note: c/o increased soa since 199904/12/22. reports covid + 04/04/22 et. levy from hospital 04/07/22 Source of Information: Patient Exam Limitations: No Limitations History of Present Illness Date Seen by Provider: Apr 13, 2022 Time Seen by Provider: 04:30 Initial Comments This is 66-year-old gentleman presents to the emergency room with atrial fibrillation and RVR. He was recently admitted for the same and was also diagnosed with COVID-19. He is currently on day 10 from the day of diagnosis. He feels rather short of breath and reports increased edema. Oxygen saturation is stable in the mid 90s. He has been using his inhaler but that has not resolved his symptoms. Allergies and Home Medications Allergies Coded Allergies: No Known Drug Allergies (Unverified , 06/04/20) Patient Home Medication List Home Medication List Reviewed: Yes Albuterol Sulfate (Proair Hfa) 90 Mcg Hfa.aer.ad, 0 GM IH RTQ4HR Prescribed by: GISELLA KENNEDY on 04/07/22 1325 Aspirin (Aspirin EC) 81 Mg Tablet.dr, 81 MG PO DAILY Prescribed by: GISELLA KENNEDY on 04/07/22 1325 Diltiazem HCl (Diltiazem 24Hr ER) 120 Mg Cap.er.24h, 120 MG PO DAILY Prescribed by: GISELAL KENNEDY on 04/07/22 1325 Metoprolol Succinate (Metoprolol Succinate) 50 Mg Tab.er.24h, 50 MG PO DAILY Prescribed by: GISELLA KENNEDY on 04/07/22 1325 Rivaroxaban (Xarelto Tablet) 20 Mg Tablet, 20 MG PO DAILY@1700, (Reported) Entered as Reported by: CHERYL YOUNG on 04/04/22 1349 Review of Systems Review of Systems Constitutional: weakness EENTM: no symptoms reported Respiratory: see HPI Cardiovascular: see HPI Gastrointestinal: no symptoms reported Genitourinary: no symptoms reported Musculoskeletal: no symptoms reported Skin: no symptoms reported Psychiatric/Neurological: No Symptoms Reported Hematologic/Lymphatic: No Symptoms Reported Past Fdfaote-Ajwrab-Spwezh Hx Patient Social History Tobacco Use?: No Substance use?: No Alcohol Use?: No Pt feels they are or have been: No Immunizations Up To Date Tetanus Booster (TDap): Unknown First/Initial COVID19 Vaccinat: none Seasonal Allergies Seasonal Allergies: No Past Medical History Surgery/Hospitalization HX: afib, brain bleed, htn, Surgeries: Yes (Cardiac electrocardioversion) Respiratory: Yes Pneumonia Cardiac: Yes Atrial Fibrillation, High Cholesterol, Hypertension Neurological: Yes (STATES HAS A HX OF BRAIN BLEED) Stroke Genitourinary: No Gastrointestinal: No Musculoskeletal: No Endocrine: No HEENT: No Cancer: No Psychosocial: No Integumentary: No Blood Disorders: No Family Medical History No Pertinent Family Hx Physical Exam Vital Signs Vital Signs - First Documented 04/13/22 04/13/22 04:32 04:40 Temp 37.2 Pulse 128 Resp 26 B/P (MAP) 115/95 (102) Pulse Ox 94 O2 Delivery Room Air O2 Flow Rate 2.00 Capillary Refill : Less Than 3 Seconds Height, Weight, BMI Height: '" Weight: lbs. oz. 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 Norm as Tested Skin: Normal Color, Warm/Dry Progress/Results/Core Measures Suspected Sepsis SIRS Temperature: Pulse: 128 Respiratory Rate: 26 Laboratory Tests 04/13/22 04:48: White Blood Count 8.1 Blood Pressure 115 /95 Mean: 102 Laboratory Tests 04/13/22 04:48: Creatinine 1.52H, INR Comment 3.0H, Platelet Count 194, Total Bilirubin 3.3H Results/Orders Lab Results Laboratory Tests Test 04/13/22 04:48 Range/Units White Blood Count 8.1 4.3-11.0 10^3/uL Red Blood Count 4.43 4.30-5.52 10^6/uL Hemoglobin 14.1 13.3-17.7 g/dL Hematocrit 43 40-54 % Mean Corpuscular Volume 98 80-99 fL Mean Corpuscular Hemoglobin 32 25-34 pg Mean Corpuscular Hemoglobin Concent 33 32-36 g/dL Red Cell Distribution Width 16.5 H 10.0-14.5 % Platelet Count 194 130-400 10^3/uL Mean Platelet Volume 9.2 9.0-12.2 fL Immature Granulocyte % (Auto) 0 % Neutrophils (%) (Auto) 77 H 42-75 % Lymphocytes (%) (Auto) 15 12-44 % Monocytes (%) (Auto) 6 0-12 % Eosinophils (%) (Auto) 1 0-10 % Basophils (%) (Auto) 0 0-10 % Neutrophils # (Auto) 6.3 1.8-7.8 10^3/uL Lymphocytes # (Auto) 1.2 1.0-4.0 10^3/uL Monocytes # (Auto) 0.5 0.0-1.0 10^3/uL Eosinophils # (Auto) 0.1 0.0-0.3 10^3/uL Basophils # (Auto) 0.0 0.0-0.1 10^3/uL Immature Granulocyte # (Auto) 0.0 0.0-0.1 10^3/uL Prothrombin Time 31.4 H 12.2-14.7 SEC INR Comment 3.0 H 0.8-1.4 Activated Partial Thromboplast Time 46 H 24-35 SEC Sodium Level 140 135-145 MMOL/L Potassium Level 4.0 3.6-5.0 MMOL/L Chloride Level 105 98-107 MMOL/L Carbon Dioxide Level 22 21-32 MMOL/L Anion Gap 13 5-14 MMOL/L Blood Urea Nitrogen 18 7-18 MG/DL Creatinine 1.52 H 0.60-1.30 MG/DL Estimat Glomerular Filtration Rate 50 BUN/Creatinine Ratio 12 Glucose Level 114 H 70-105 MG/DL Calcium Level 9.1 8.5-10.1 MG/DL Corrected Calcium 9.2 8.5-10.1 MG/DL Magnesium Level 2.4 1.6-2.4 MG/DL Total Bilirubin 3.3 H 0.1-1.0 MG/DL Aspartate Amino Transf (AST/SGOT) 25 5-34 U/L Alanine Aminotransferase (ALT/SGPT) 13 0-55 U/L Alkaline Phosphatase 94 40-136 U/L Myoglobin 89.9 10.0-92.0 NG/ML Troponin I 0.057 H <0.028 NG/ML C-Reactive Protein High Sensitivity 2.81 H 0.00-0.50 MG/DL B-Type Natriuretic Peptide 379.1 H <100.0 PG/ML Total Protein 7.7 6.4-8.2 GM/DL Albumin 3.9 3.2-4.5 GM/DL My Orders Orders - LORENE MITCHELL MD Ekg Tracing (04/13/22 04:41) Cbc With Automated Diff (04/13/22 04:44) Magnesium (04/13/22 04:44) Chest 1 View, Ap/Pa Only (04/13/22 04:44) Comprehensive Metabolic Panel (04/13/22 04:44) Myoglobin Serum (04/13/22 04:44) Protime With Inr (04/13/22 04:44) Partial Thromboplastin Time (04/13/22 04:44) O2 (04/13/22 04:44) Monitor-Rhythm Ecg Trace Only (04/13/22 04:44) Lipid Panel (04/14/22 06:00) Ed Iv/Invasive Line Start (04/13/22 04:44) Troponin I Smyth (04/13/22 04:44) Diltiazem Drip Pre-Mix (Cardizem Drip Pr (04/13/22 05:30) Diltiazem Injection (Cardizem Injection) (04/13/22 05:30) Bnp Victor Hugo (04/13/22 05:27) Hs C Reactive Protein (04/13/22 05:27) Furosemide Injection (Lasix Injection) (04/13/22 06:15) Potassium Chloride (Tablet) (Klor Con Ta (04/13/22 06:15) Ed Admission (Communication) (04/13/22 06:45) Code/Resuscitation (04/13/22 06:50) Medications Given in ED Current Medications Medications Dose Ordered Sig/Scotty Route Start Time Stop Time Status Last Admin Dose Admin Diltiazem HCl 5 mg ONCE ONCE IVP 04/13/22 05:30 04/13/22 05:31 DC 04/13/22 05:36 5 MG Furosemide 40 mg ONCE ONCE IVP 04/13/22 06:15 04/13/22 06:16 DC 04/13/22 06:27 40 MG Potassium Chloride 10 meq ONCE ONCE PO 04/13/22 06:15 04/13/22 06:16 DC 04/13/22 06:27 10 MEQ Vital Signs/I&O 04/13/22 04/13/22 04/13/22 04:32 04:40 06:53 Temp 37.2 36.6 Pulse 128 101 Resp 26 26 B/P (MAP) 115/95 (102) 108/87 Pulse Ox 94 99 98 O2 Delivery Room Air Nasal Cannula Nasal Cannula O2 Flow Rate 2.00 2.00 Capillary Refill : Less Than 3 Seconds Blood Pressure Mean: 102 Progress Note : Progress Note Patient was started on Cardizem drip with some improvement. He is already anticoagulated on Xarelto. Lasix 40 mg IV was administered along with oral potassium. Case was discussed with Dr. Nelson and Dr. Cade. He is being admitted to the ICU on the Cardizem drip. We discussed CODE STATUS and he wishes to remain full code. Patient's troponin was elevated but was consistent with his prior troponins and is likely chronic. ECG Initial ECG Impression Date: Apr 13, 2022 Initial ECG Impression Time: 04:44 Initial ECG Rate: 125 Initial ECG Rhythm: A Fib/Flutter Initial ECG Impression: Atrial Fibrillation w/RVR Comment Atrial fibrillation with RVR. No ischemic ST elevation or depression. No axis deviation. Diagnostic Imaging Diagonstic Imaging: Xray Plain Films/CT/US/NM/MRI: chest Comments [facility]. [place], [place] NAME: CAMMY JACKSON [facility] REC#: [id number] PT STATUS: REG ER : 1955 PHYSICIAN: LORENE MITCHELL MD ADMIT DATE: 04/13/22/ER Signed Date of Exam:04/13/22 CHEST 1 VIEW, AP/PA ONLY CHEST 1 VIEW, AP/PA ONLY Indication: Chest pain. Comparison: 04/06/2022 Findings: Persistent cardiomegaly with central vascular indistinctness. No pleural effusion or pneumothorax. Impression: 1. Stable cardiomegaly with mild pulmonary edema. Dictated by: Dictated on workstation # [id number] Dict: 04/13/22 0551 Trans: 04/13/22 0605 SHARMAINE [id number] Interpreted by: XIMENA MUKHERJEE MD Electronically signed by: XIMENA MUKHERJEE MD 04/13/2205 Departure Communication (Admissions) Time/Spoke to Admitting Phy: 06:45 Dr. Kennedy Time/Spoke to Consulting Phy: 06:30 Dr. Nelson Impression Primary Impression: Atrial fibrillation with RVR Additional Impressions: History of COVID-19 Congestive heart failure Qualified Codes: I50.9 - Heart failure, unspecified Disposition: 09 ADMITTED INPATIENT Condition: Stable Admissions Decision to Admit Reason: Admit from ER (General) Decision to Admit/Date: Apr 13, 2022 Time/Decision to Admit Time: 06:30 Departure-Patient Inst. Referrals: GISELLA KENNEDY DO (PCP/Family) Primary Care Physician LORENE MITCHLEL MD Apr 13, 2022 06:50
[2022-04-13] MEDS ORDERED: polyethylene glycoL POWDER 17 GM (MIRALAX) PACK PO PRN (08:00)
[2022-04-13] MEDS ORDERED: MELATONIN 3 MG TABLET PO PRN (08:00)
[2022-04-13] MEDS ORDERED: ANTACID SUSP 30 ML UDC (MYLANTA) PO PRN (08:00)
[2022-04-13] MEDS ORDERED: BISACODYL 10 MG SUPP (DULCOLAX) PR PRN (08:00)
[2022-04-13] MEDS ORDERED: diphenhydrAMINE 50 MG/ML INJ (BENADRYL) IVP PRN (08:00)
[2022-04-13] MEDS ORDERED: CALCIUM CARBONATE 500 MG (TUMS) TAB.CHEW PO PRN (08:00)
[2022-04-13] MEDS ORDERED: LACTULOSE SYRUP 10GM/15ML (ENULOSE) 30ML UDC PO PRN (08:00)
[2022-04-13] MEDS ORDERED: ONDANSETRON 4 MG (ZOFRAN) ORAL DISSOLVE TAB PO PRN (08:00)
[2022-04-13] MEDS ORDERED: MILK OF MAGNESIA 400 MG/5 ML 30 ML UDC PO PRN (08:00)
[2022-04-13] MEDS ORDERED: ONDANSETRON 4 MG/2 ML (SDV) Z0FRAN IV PRN (08:00)
[2022-04-13] MEDS ORDERED: diphenhydrAMINE 25 MG TAB (BENADRYL) PO PRN (08:00)
[2022-04-13] MEDS ORDERED: morphine INJ 4 MG/ML 1 ML (VIAL/SYRINGE) IV PRN (08:00)
[2022-04-13] MEDS ORDERED: ACETAMINOPHEN 325 MG TABLET PO PRN (08:00)
--- NOTE | 2022-04-13 08:13 | Tele-ICU Progress Note ---
Subjective Date Seen by a Provider: Apr 13, 2022 Time Seen by a Provider: 06:50 Subjective/Events-last exam This virtual visit was conducted using real time audio/video. Thank you for asking us to see this patient for afib/RVR PMH: afib, recent Covid D/C 04/07/22,htn.,HL, ICH SH: smoking history: N FH: Non-contributory ROS: as in HPI. PE: VSS. O2 sat 94% on 2 LPM. HEENT: No obvious masses, adenopathy or JVD. Chest: clear to auscultation. CV: Irreg 102/min. S1 S2 No murmur or added sounds. Abd: Non-tender. Bowel sounds Y. : Unremarkable. [employer] DRIVER/psychiatric: Grossly intact. No obvious focal findings. Extremities: No edema. Capillary refill < 3 seconds. Skin: unremarkable. Results: Elevated Creat 1.52, BNP 379, trop 0.057. CXR: Hyperinflated, congested. Available chart/ vitals / labs / images reviewed. Video assessment done using teleICU camera, rest of exam as per RN. A/P: Respiratory insufficiency: Continue present management with O2 Monitor for increasing oxygenation needs and/or need for intubation. Critical Care: critically ill patient. Cont. IVF, Cardizem Discussed with JEANIE Nguyen. Asked RN to reach out to eICU if any questions or concerns later. Time spent with patient/coordination of care with other health professionals (mins): 25 Sepsis Event Evaluation Height, Weight, BMI Height: '" Weight: lbs. oz. kg; 37.00 BMI Method: Exam Exam Patient acknowledged, consented, and participated in this virtual visit which was conducted using real time audio/video Vital Signs Date Time Temp Pulse Resp B/P (MAP) Pulse Ox O2 Delivery O2 Flow Rate FiO2 04/13/22 06:53 36.6 101 26 108/87 98 Nasal Cannula 2.00 04/13/22 04:40 99 Nasal Cannula 2.00 04/13/22 04:32 37.2 128 26 115/95 (102) 94 Room Air Height & Weight Height: '" Weight: lbs. oz. kg; 37.00 BMI Method: General Appearance: No Apparent Distress Capillary Refill: Less Than 3 Seconds Peripheral Pulses: 2+ Dorsalis Pedis (R), 2+ Left Dors-Pedis (L) (See free text) Results Lab Laboratory Tests 04/13/22 04:48 Assessment/Plan Assessment/Plan See free text. Critical Care: Critically Ill Patient DONNY CAMPBELL MD Apr 13, 2022 08:13
[2022-04-13 08:56] VITALS: BP 84/74
[2022-04-13] MEDS ORDERED: RT-ALBUTEROL/IPRATROPIUM 3 ML (DUONEB) VIAL INH PRN (09:00)
[2022-04-13] MEDS: DOCUSATE SODIUM 100 MG (COLACE) CAP PO SCH ×2 (09:00→20:22)
[2022-04-13] MEDS: SENNOSIDES 8.6 MG (SENOKOT) TAB PO SCH ×2 (09:00→20:22)
[2022-04-13] MEDS: dilTIAZem DRIP PRE-MIX 125 ML IV SCH ×2 (09:37→17:32)
[2022-04-13] MEDS ORDERED: RT-ALBUTEROL/IPRATROPIUM 3 ML (DUONEB) VIAL INH SCH (10:00)
[2022-04-13] MEDS: RT-ALBUTEROL HFA 8.5 GM INHALER IH PRN (11:13)
--- NOTE | 2022-04-13 12:45 | Consultation-Cardiology ---
HPI-Cardiology Cardiology Consultation Date of Consultation 04/13/22 Date of Admission Time Seen by Provider: 12:40 Indication: Shortness of breath HPI 66 years old gentleman with history of paroxysmal atrial fibrillation, diagnosed recently with COVID-19 infection and was in respiratory failure. Was hospitalized and improved. Discharge on April 07, 2022. Patient referred to the hospital for worsening shortness of breath, pedal edema. Denied any chest pain. No palpitation. He was noted to be in atrial fibrillation with rapid ventricular response. [place], he was discharged in atrial fibrillation with controlled heart rate. Home Medications & Allergies Allergies: Coded Allergies: No Known Drug Allergies (Unverified , 06/04/20) Home Medication List Reviewed: Yes ZFA-Oiwfef-Uzjxsz Hx Patient Social History Marital Status: Employed/Student: retired Smoking Status: Never a Smoker Recent Hopitalizations: No Have you traveled recently?: No Alcohol Use?: No Immunizations Up To Date Tetanus Booster (TDap): Unknown Past Medical History Discussed below Family Medical History Significant Family History: No Pertinent Family Hx Family Medical Hx Noncontributory Review of Systems-General Review of Systems Constitutional: see HPI, malaise, weakness EENTM: no symptoms reported Respiratory: see HPI; No cough; dyspnea on exertion; No hemoptysis, No ort hopnea, No phlegm; short of breath; No stridor, No wheezing, No other Cardiovascular: No no symptoms reported; see HPI; No chest pain; edema; No Hx of Intervention, No syncope, No vascular heart diseas, No other Gastrointestinal: no symptoms reported, see HPI Genitourinary: no symptoms reported, see HPI Musculoskeletal: no symptoms reported, see HPI Skin: no symptoms reported, see HPI Psychiatric/Neurological: No Symptoms Reported, See HPI Reviewed Test Results Reviewed Test Results Lab Laboratory Tests Test 04/13/22 04:48 Range/Units White Blood Count 8.1 4.3-11.0 10^3/uL Red Blood Count 4.43 4.30-5.52 10^6/uL Hemoglobin 14.1 13.3-17.7 g/dL Hematocrit 43 40-54 % Mean Corpuscular Volume 98 80-99 fL Mean Corpuscular Hemoglobin 32 25-34 pg Mean Corpuscular Hemoglobin Concent 33 32-36 g/dL Red Cell Distribution Width 16.5 H 10.0-14.5 % Platelet Count 194 130-400 10^3/uL Mean Platelet Volume 9.2 9.0-12.2 fL Immature Granulocyte % (Auto) 0 % Neutrophils (%) (Auto) 77 H 42-75 % Lymphocytes (%) (Auto) 15 12-44 % Monocytes (%) (Auto) 6 0-12 % Eosinophils (%) (Auto) 1 0-10 % Basophils (%) (Auto) 0 0-10 % Neutrophils # (Auto) 6.3 1.8-7.8 10^3/uL Lymphocytes # (Auto) 1.2 1.0-4.0 10^3/uL Monocytes # (Auto) 0.5 0.0-1.0 10^3/uL Eosinophils # (Auto) 0.1 0.0-0.3 10^3/uL Basophils # (Auto) 0.0 0.0-0.1 10^3/uL Immature Granulocyte # (Auto) 0.0 0.0-0.1 10^3/uL Prothrombin Time 31.4 H 12.2-14.7 SEC INR Comment 3.0 H 0.8-1.4 Activated Partial Thromboplast Time 46 H 24-35 SEC Sodium Level 140 135-145 MMOL/L Potassium Level 4.0 3.6-5.0 MMOL/L Chloride Level 105 98-107 MMOL/L Carbon Dioxide Level 22 21-32 MMOL/L Anion Gap 13 5-14 MMOL/L Blood Urea Nitrogen 18 7-18 MG/DL Creatinine 1.52 H 0.60-1.30 MG/DL Estimat Glomerular Filtration Rate 50 BUN/Creatinine Ratio 12 Glucose Level 114 H 70-105 MG/DL Calcium Level 9.1 8.5-10.1 MG/DL Corrected Calcium 9.2 8.5-10.1 MG/DL Magnesium Level 2.4 1.6-2.4 MG/DL Total Bilirubin 3.3 H 0.1-1.0 MG/DL Aspartate Amino Transf (AST/SGOT) 25 5-34 U/L Alanine Aminotransferase (ALT/SGPT) 13 0-55 U/L Alkaline Phosphatase 94 40-136 U/L Myoglobin 89.9 10.0-92.0 NG/ML Troponin I 0.057 H <0.028 NG/ML C-Reactive Protein High Sensitivity 2.81 H 0.00-0.50 MG/DL B-Type Natriuretic Peptide 379.1 H <100.0 PG/ML Total Protein 7.7 6.4-8.2 GM/DL Albumin 3.9 3.2-4.5 GM/DL Physical Exam Physical Exam Vital Signs Vital Signs - First Documented 04/13/22 04/13/22 04/13/22 04:32 04:40 08:56 Temp 37.2 Pulse 128 Resp 26 B/P (MAP) 115/95 (102) Pulse Ox 94 O2 Delivery Room Air O2 Flow Rate 2.00 FiO2 28 Capillary Refill : Less Than 3 Seconds Height, Weight, BMI Height: '" Weight: lbs. oz. 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 Reporting improvement. Continue with diuresis and monito r Mild elevation in troponin level, non-ST elevation myocardial infarction, probably due to atrial fibrillation with tachycardia. Underlying coronary artery disease cannot be excluded Had history of troponin during previous admission in March 2022, I am planning to proceed with stress test as an outpatient Atrial fibrillation with borderline tachycardia, had history of paroxysmal atrial fibrillation, seen in May 2020 with atrial fibrillation and during that admission 12 April 04, 2022 patient had atrial fibrillation that is persistent. I will continue to adjust Cardizem and try to achieve adequate heart rate control. Monitor blood pressure [id number] score of 2, yearly risk of stroke without oral anticoagulation is 2.2 percent, maintained on Eliquis. COVID-19 illness, admitted on April 04, 2022 and discharged April 07, 2022, still in isolation at this time. Management per medical services Hypertension, monitor blood pressure on current medication Palpitation, noted to have frequent PVC's on EKG and loop recorder, continue to monitor Syncope, sustained a fall off a ladder with subarachnoid hemorrhage in May 2020, seen and treated in . Stress test done at on June 08, 2020 reporting no significant ischemia or infarction. Echocardiogram was normal Nonobstructive carotid artery stenosis, ultrasound was done in November 2021. Continue to monitor AUDELIA BEARD MD Apr 13, 2022 12:45
--- NOTE | 2022-04-13 13:11 | History & Physical ---
History of Present Illness HPI/Chief Complaint CC: Dyspnea HPI: This is a 66yoWM clinic patient of mine who was just DC last week after COVID and AF RVR who presented to the ER with AECHF and AF RVR again. Patient has a h/o non-compliance with meds. Patient is still dyspneic and feels very nervous. Cardiology consulted. Cardizem drip maintained. Xarelto will be re started. Patient remains in isolation here at [facility] for total of 20 days after COVID dx but he was not in isolation at home per [facility] recs. Source: patient Exam Limitations: clinical condition Date Seen 04/13/22 Time Seen by a Provider: 13:15 Attending Physician Ally Reynolds DO PCP Admitting Physician: Ally Reynolds DO Attending Physician: Ally Reynolds DO Referring Physician Date of Admission Apr 13, 2022 at 06:54 Home Medications & Allergies Home Medications Reviewed patient Home Medication Reconciliation performed by pharmacy medication reconciliations nanotechnology engineering technician and/or nursing. Patients Allergies have been reviewed. Allergies Allergies Coded Allergies No Known Drug Allergies (Unverified06/04/20) Past Jihvjzu-Qfxjlf-Xzfoiz Hx Past Med/Social Hx: Reviewed Nursing Past Med/Soc Hx, Reviewed and Corrections made Patient Social History Marrital Status: Employed/Student: employed, retired Smoking Status: Never a Smoker Recent Foreign Travel: No Contact w/other who traveled: No Recent Hopitalizations: No Recent Infectious Disease Expo: No Immunizations Up To Date Tetanus Booster (TDap): Unknown Seasonal Allergies Seasonal Allergies: No Past Medical History Cardiac: Atrial Fibrillation, High Cholesterol, Hypertension Neurological: Stroke History of Blood Disorders: No Family History No Pertinent Family Hx Review of Systems Constitutional: see HPI, dizziness, malaise, weakness EENTM: no symptoms reported Respiratory: dyspnea on exertion, short of breath, wheezing Cardiovascular: palpitations Gastrointestinal: no symptoms reported Genitourinary: no symptoms reported Musculoskeletal: no symptoms reported Skin: no symptoms reported Psychiatric/Neurological: Anxiety All Other Systems Reviewed Negative Unless Noted: Yes Physical Exam Physical Exam Vital Signs Vital Signs - First Documented 04/13/22 04/13/22 04/13/22 04:32 04:40 08:56 Temp 37.2 Pulse 128 Resp 26 B/P (MAP) 115/95 (102) Pulse Ox 94 O2 Delivery Room Air O2 Flow Rate 2.00 FiO2 28 Capillary Refill : Less Than 3 Seconds Height, Weight, BMI Height: '" Weight: lbs. oz. 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 Assessment/Plan Admission Diagnosis Assessment: AECHF AF RVR HTN HLP Recent COVID Plan: ICU Needs biPAP but can't tolerate Cardizem Admission Status: Inpatient Order (span 2 midnights) Reason for Inpatient Admission: CHF AFRVR Diagnosis/Problems Diagnosis/Problems (1) Acute heart failure Status: Acute (2) Non-STEMI (non-ST elevated myocardial infarction) Status: Acute (3) Atrial fibrillation with RVR Status: Acute ALLY REYNOLDS DO Apr 13, 2022 13:11
[2022-04-13] MEDS: meTOproloL SUCCINATE 50 MG (TOPROL XL) TAB PO SCH (14:32)
[2022-04-13] MEDS: RT-ALBUTEROL HFA 8.5 GM INHALER IH SCH ×3 (15:49→22:03)
[2022-04-13] MEDS: RIVAROXABAN 20 MG TABLET (XARELTO) PO SCH (17:31)
[2022-04-13] MEDS: FUROSEMIDE 40 MG/4 ML INJ (LASIX) IVP SCH (17:31)
[2022-04-14] MEDS: RT-ALBUTEROL HFA 8.5 GM INHALER IH SCH ×6 (02:06→22:42)
[2022-04-14 04:40] LABS: BASOPHILS % (AUTO) 0 % (0-10); EOSINOPHILS # (AUTO) 0.1 10^3/uL (0.0-0.3); EOSINOPHILS % (AUTO) 1 % (0-10); HEMATOCRIT 40 % (40-54); LYMPHOCYTES # (AUTO) 1.3 10^3/uL (1.0-4.0); LYMPHOCYTES % (AUTO) 19 % (12-44); MEAN CORPUSCULAR HEMOGLOBIN 32 pg (25-34); MEAN CORPUSCULAR HGB CONC 32 g/dL (32-36); MEAN CORPUSCULAR VOLUME 99 fL (80-99); MONOCYTES # (AUTO) 0.4 10^3/uL (0.0-1.0); MONOCYTES % (AUTO) 6 % (0-12); NEUTROPHILS # (AUTO) 5.2 10^3/uL (1.8-7.8); NEUTROPHILS % (AUTO) 73 % (42-75); PLATELET COUNT 154 10^3/uL (130-400)
[2022-04-14 04:50] LABS: ALBUMIN 3.5 GM/DL (3.2-4.5); POTASSIUM 3.6 MMOL/L (3.6-5.0)
[2022-04-14 04:51] LABS: CALCIUM 8.6 MG/DL (8.5-10.1)
[2022-04-14 04:55] LABS: BILIRUBIN,TOTAL 2.8 MG/DL (0.1-1.0)
[2022-04-14 04:56] LABS: CREATININE SERUM 1.53 MG/DL (0.60-1.30)
[2022-04-14] MEDS: FUROSEMIDE 40 MG/4 ML INJ (LASIX) IVP SCH ×2 (06:31→17:47)
[2022-04-14] MEDS ORDERED: NS IV 500 ML 500 ML IV PRN (07:00)
[2022-04-14 07:20] LABS: PHOSPHORUS 4.3 MG/DL (2.3-4.7)
[2022-04-14 07:22] LABS: MAGNESIUM 2.3 MG/DL (1.6-2.4)
--- NOTE | 2022-04-14 08:10 | Tele-ICU Progress Note ---
Subjective Date Seen by a Provider: Apr 14, 2022 Time Seen by a Provider: 08:08 Subjective/Events-last exam Here for COPD exacerbation, on albuterol Here for a fib, was on IV Cardizem @ 10 chaqnging to po V rate 70 to 90 but does go up to 110's, BP is ok Sepsis Event Evaluation Height, Weight, BMI Height: '" Weight: lbs. oz. kg; 39.28 BMI Method: Exam Exam Patient acknowledged, consented, and participated in this virtual visit which was conducted using real time audio/video Vital Signs Date Time Temp Pulse Resp B/P (MAP) Pulse Ox O2 Delivery O2 Flow Rate FiO2 04/14/22 07:25 93 Nasal Cannula 2.00 04/14/22 07:00 98 04/14/22 06:00 81 20 118/97 94 Nasal Cannula 2.00 04/14/22 05:00 83 21 116/95 97 Nasal Cannula 2.00 04/14/22 04:47 Nasal Cannula 04/14/22 04:00 72 25 119/89 94 Nasal Cannula 2.00 04/14/22 03:00 73 18 105/92 94 Nasal Cannula 2.00 04/14/22 02:07 96 Nasal Cannula 2.00 04/14/22 02:00 82 24 126/91 95 Nasal Cannula 2.00 04/14/22 01:00 77 04/14/22 01:00 77 21 118/76 96 Nasal Cannula 2.00 04/14/22 00:16 36.1 04/14/22 00:00 Nasal Cannula 04/14/22 00:00 68 15 97/86 90 Nasal Cannula 2.00 04/13/22 23:00 94 20 106/94 92 Nasal Cannula 2.00 04/13/22 22:03 92 Nasal Cannula 04/13/22 22:00 64 20 109/91 93 Nasal Cannula 2.00 04/13/22 21:00 101 19 106/86 90 Nasal Cannula 2.00 04/13/22 20:54 35.7 Nasal Cannula 2.00 04/13/22 20:42 98 Nasal Cannula 2.00 04/13/22 20:00 93 26 97/73 90 Nasal Cannula 2.00 04/13/22 19:00 93 21 93/76 91 Nasal Cannula 2.00 04/13/22 19:00 93 04/13/22 18:03 94 Nasal Cannula 04/13/22 18:00 112 27 114/88 94 Nasal Cannula 2.00 04/13/22 17:00 93 25 112/89 94 Nasal Cannula 2.00 04/13/22 16:00 98 Nasal Cannula 2.00 04/13/22 16:00 35.0 Nasal Cannula 2.00 04/13/22 16:00 85 18 109/89 96 Nasal Cannula 2.00 04/13/22 15:49 96 Nasal Cannula 1.00 04/13/22 15:00 99 13 118/81 94 Nasal Cannula 2.00 04/13/22 14:00 105 18 105/83 94 Nasal Cannula 2.00 04/13/22 13:00 110 04/13/22 13:00 123 28 119/89 93 Nasal Cannula 2.00 04/13/22 12:00 35.4 04/13/22 12:00 94 Nasal Cannula 2.00 04/13/22 12:00 93 23 122/84 95 Nasal Cannula 2.00 04/13/22 11:13 95 Nasal Cannula 1.00 04/13/22 11:00 110 25 123/88 93 Nasal Cannula 2.00 04/13/22 10:00 102 21 110/89 95 Nasal Cannula 2.00 04/13/22 09:00 122 28 108/82 93 Nasal Cannula 2.00 04/13/22 08:56 36.6 112 96 28 I & O 04/14/22 07:00 Intake Total 1430 ml Output Total 2906 ml Balance -1476 ml Height & Weight Height: '" Weight: lbs. oz. 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
[2022-04-14] MEDS ORDERED: KCL 20 MEQ TAB (K-DUR) PO ONE (09:00)
--- NOTE | 2022-04-14 09:53 | Cardiology Progress Note ---
Subjective Date Seen by Provider: Apr 14, 2022 Time Seen by Provider: 09:52 Subjective/Events-last exam Patient is feeling better. Still in isolation. Objective-Cardiology Exam Last Set of Vital Signs Vital Signs 04/13/22 04/14/22 04/14/22 04/14/22 08:56 00:16 08:00 09:00 Temp 36.1 Pulse 90 Resp 28 B/P (MAP) 98/84 Pulse Ox 94 O2 Delivery Nasal Cannula O2 Flow Rate 2.00 FiO2 28 I&O Intake and Output 04/14/22 00:00 Intake Total 1230 ml Output Total 2326 ml Balance -1096 ml Intake Oral 1230 ml Output Urine Total 2325 ml Stool Total 1 ml # Voids 5 Daily Weight Change No General: Alert, Cooperative HEENT: Atraumatic Neck: Supple Heart: Other (Atrial fibrillation) Neuro: Normal Speech Psych/Mental Status: Mental Status NL Results Lab Laboratory Tests 04/14/22 04:29 A/P-Cardiology Admission Diagnosis Shortness of breath Atrial fibrillation Non-ST elevation myocardial infarction Congestive heart failure, acute left ventricular systolic dysfunction Assessment/Plan Shortness of breath, worsening pedal edema with fluid overload Elevated BNP., Congestive heart failure, worsened by atrial fibrillation Responding well to diuretics. Continue with aggressive diuresis and monitor Mild elevation in troponin level, non-ST elevation myocardial infarction, probably due to atrial fibrillation with tachycardia. Underlying coronary artery disease cannot be excluded Had history of troponin during previous admission in March 2022, I am planning to proceed with stress test as an outpatient Atrial fibrillation with borderline tachycardia, had history of paroxysmal atrial fibrillation, seen in May 2020 with atrial fibrillation and during that admission 12 April 04, 2022 patient had atrial fibrillation that is pe rsistent. Heart rate is better controlled at this time. Continue to monitor [id number] score of 2, yearly risk of stroke without oral anticoagulation is 2.2 percent, maintained on Eliquis. COVID-19 illness, admitted on April 04, 2022 and discharged April 07, 2022, still in isolation at this time. Management per medical services Hypertension, monitor blood pressure on current medication Palpitation, noted to have frequent PVC's on EKG and loop recorder, continue to monitor Syncope, sustained a fall off a ladder with subarachnoid hemorrhage in May 2020, seen and treated in . Stress test done at on June 08, 2020 reporting no significant ischemia or infarction. Echocardiogram was normal Nonobstructive carotid artery stenosis, ultrasound was done in November 2021. Continue to monitor AUDELIA BEARD MD Apr 14, 2022 09:53
[2022-04-14] MEDS: meTOproloL SUCCINATE 50 MG (TOPROL XL) TAB PO SCH (09:56)
[2022-04-14] MEDS: SENNOSIDES 8.6 MG (SENOKOT) TAB PO SCH ×2 (09:57→20:18)
[2022-04-14] MEDS: DOCUSATE SODIUM 100 MG (COLACE) CAP PO SCH ×2 (09:57→20:17)
--- NOTE | 2022-04-14 12:36 | Progress Note ---
ZHANNA VEGA 04/14/22 1236: Subjective Date Seen by a Provider: Apr 14, 2022 Time Seen by a Provider: 11:00 Subjective/Events-last exam CC: Dyspnea 66yo M presented to the ER with acute excacerbation of CHF and AF RVR He was discharged last week after being Covid positive Patient has history of non-compliance with meds Patient is feeling much better this morning Did not complain of any shortness of breath 4+ LE edema b/l Review of Systems General: No Chills, No Night Sweats, No Fatigue, No Malaise, No Appetite, No Other HEENT: No Head Aches, No Visual Changes, No Eye Pain, No Ear Pain, No Dysphasia, No Sinus Congestion, No Post Nasal Drip, No Sore Throat, No Other Pulmonary: No Dyspnea, No Cough, No Pleuritic Chest Pain, No Other Cardiovascular: No: Chest Pain, Palpitations, Orthopnea, Paroxysmal Noc. Dyspnea, Edema, Lt Headedness Gastrointestinal: No: Nausea, Vomiting, Abdominal Pain, Diarrhea, Constipation, Melena, Hematochezia Genitourinary: No Dysuria, No Frequency, No Incontinence, No Hematuria, No Retention Musculoskeletal: other (4+ pitting edema b/l LE); No: neck pain, shoulder pain, arm pain, back pain, hand pain, leg pain, foot pain Neurological: No: Weakness, Numbness, Incoordination, Change in speech, Confusion, Seizures, Other Focused Exam Time of Focused Exam: 10:00 Objective Exam Last Set of Vital Signs Vital Signs Date Time Temp Pulse Resp B/P (MAP) Pulse Ox O2 Delivery O2 Flow Rate FiO2 04/14/22 12:00 82 30 106/81 93 Nasal Cannula 2.00 04/14/22 00:16 36.1 04/13/22 08:56 28 Capillary Refill : Less Than 3 Seconds I&O Intake and Output 04/13/22 23:59 Intake Total 1230 ml Output Total 2326 ml Balance -1096 ml Intake Oral 1230 ml Output Urine Total 2325 ml Stool Total 1 ml # Voids 5 Daily Weight Change No General: Alert, Oriented X3, Cooperative, No Acute Distress Lungs: Clear to Auscultation, Normal Air Movement Heart: Other (Irregular rhythm) Abdomen: Soft, No Tenderness, No Hepatosplenomegaly, No Masses Results Lab Laboratory Tests 04/14/22 04:29: White Blood Count 7.0, Red Blood Count 4.08L, Hemoglobin 13.0L, Hematocrit 40, Mean Corpuscular Volume 99, Mean Corpuscular Hemoglobin 32, Mean Corpuscular Hemoglobin Concent 32, Red Cell Distribution Width 16.4H, Platelet Count 154, Mean Platelet Volume 9.0, Immature Granulocyte % (Auto) 0, Neutrophils (%) (Auto) 73, Lymphocytes (%) (Auto) 19, Monocytes (%) (Auto) 6, Eosinophils (%) (Auto) 1, Basophils (%) (Auto) 0, Neutrophils # (Auto) 5.2, Lymphocytes # (Auto) 1.3, Monocytes # (Auto) 0.4, Eosinophils # (Auto) 0.1, Basophils # (Auto) 0.0, Immature Granulocyte # (Auto) 0.0, Sodium Level 138, Potassium Level 3.6, Chloride Level 104, Carbon Dioxide Level 25, Anion Gap 9, Blood Urea Nitrogen 16, Creatinine 1.53H, Estimat Glomerular Filtration Rate 50, BUN/Creatinine Ratio 10, Glucose Level 112H, Calcium Level 8.6, Corrected Calcium 9.0, Phosphorus Level 4.3, Magnesium Level 2.3, Total Bilirubin 2.8H, Aspartate Amino Transf (AST/SGOT) 23, Alanine Aminotransferase (ALT/SGPT) 11, Alkaline P hosphatase 85, Total Protein 7.0, Albumin 3.5, Triglycerides Level 63, Cholesterol Level 69, LDL Cholesterol Direct 34, VLDL Cholesterol 13, HDL Cholesterol 27L Microbiology 04/13/22 MRSA Screen - Final, Complete MRSA not isolated Assessment/Plan Assessment/Plan Assess & Plan/Chief Complaint Assessment and Plan AECHF Continue diuretic AF RVR Continue Xeralto Finish diltiazem course Consult cardiology for Echo following diltiazem HTN Continue metoprolol HLP Consider starting statin therapy LE Edema Give compression stockings ALLY KENNEDY DO 04/14/222032: Subjective Subjective/Events-last exam Pt is doing a lot better Improved Maintain on Xarelto Lasix is really helping his breathing Lower extremity edema is much improved Assessment/Plan Assessment/Plan Assess & Plan/Chief Complaint Continue diuresis O2 Supervisory-Addendum Brief Verification & Attestation Participated in pt care: history, MDM, physical Personally performed: exam, history, MDM, supervision of care Care discussed with: Medical Student Procedures: n/a Results interpretation: Verified all documentation Verification and Attestation of Medical Student E/M Service A medical student performed and documented this service in my presence. I reviewed and verified all information documented by the medical student and made modifications to such information, when appropriate. I personally performed the physical exam and medical decision making. Ally Kennedy, Apr 14, 2022,20:32 ZHANNA VEGA Apr 14, 2022 12:36 ALLY KENNEDY DO Apr 14, 2022 20:33
--- NOTE | 2022-04-14 15:53 | Tele-ICU Progress Note ---
Subjective Date Seen by a Provider: Apr 14, 2022 Time Seen by a Provider: 15:49 Subjective/Events-last exam Called for more SOB, in a fib, has a few crackles and slight wheezing, BP ok, Sepsis Event Evaluation Height, Weight, BMI Height: '" Weight: lbs. oz. kg; 39.28 BMI Method: Focused Exam Time of Focused Exam: 10:00 Exam Exam Patient acknowledged, consented, and participated in this virtual visit which was conducted using real time audio/video Vital Signs Date Time Temp Pulse Resp B/P (MAP) Pulse Ox O2 Delivery O2 Flow Rate FiO2 04/14/22 14:00 99 23 116/99 98 Nasal Cannula 2.00 04/14/22 13:29 97 Nasal Cannula 3.00 04/14/22 13:00 78 30 110/63 97 Nasal Cannula 2.00 04/14/22 12:39 69 04/14/22 12:00 Nasal Cannula 2.00 04/14/22 12:00 82 30 106/81 93 Nasal Cannula 2.00 04/14/22 11:00 77 107/42 95 Nasal Cannula 2.00 04/14/22 10:00 80 29 107/88 91 Nasal Cannula 2.00 04/14/22 09:00 90 98/84 94 Nasal Cannula 2.00 04/14/22 08:00 85 28 112/95 92 Nasal Cannula 2.00 04/14/22 08:00 Nasal Cannula 2.00 04/14/22 07:25 93 Nasal Cannula 2.00 04/14/22 07:00 98 04/14/22 07:00 84 26 127/109 93 Nasal Cannula 2.00 04/14/22 06:00 81 20 118/97 94 Nasal Cannula 2.00 04/14/22 05:00 83 21 116/95 97 Nasal Cannula 2.00 04/14/22 04:47 Nasal Cannula 04/14/22 04:00 72 25 119/89 94 Nasal Cannula 2.00 04/14/22 03:00 73 18 105/92 94 Nasal Cannula 2.00 04/14/22 02:07 96 Nasal Cannula 2.00 04/14/22 02:00 82 24 126/91 95 Nasal Cannula 2.00 04/14/22 01:00 77 04/14/22 01:00 77 21 118/76 96 Nasal Cannula 2.00 04/14/22 00:16 36.1 8/5/22 00:00 Nasal Cannula 04/14/22 00:00 68 15 97/86 90 Nasal Cannula 2.00 04/13/22 23:00 94 20 106/94 92 Nasal Cannula 2.00 04/13/22 22:03 92 Nasal Cannula 04/13/22 22:00 64 20 109/91 93 Nasal Cannula 2.00 04/13/22 21:00 101 19 106/86 90 Nasal Cannula 2.00 04/13/22 20:54 35.7 Nasal Cannula 2.00 04/13/22 20:42 98 Nasal Cannula 2.00 04/13/22 20:00 93 26 97/73 90 Nasal Cannula 2.00 04/13/22 19:00 93 21 93/76 91 Nasal Cannula 2.00 04/13/22 19:00 93 04/13/22 18:03 94 Nasal Cannula 04/13/22 18:00 112 27 114/88 94 Nasal Cannula 2.00 04/13/22 17:00 93 25 112/89 94 Nasal Cannula 2.00 04/13/22 16:00 98 Nasal Cannula 2.00 04/13/22 16:00 35.0 Nasal Cannula 2.00 04/13/22 16:00 85 18 109/89 96 Nasal Cannula 2.00 I & O 04/14/22 07:00 Intake Total 1430 ml Output Total 2906 ml Balance -1476 ml Height & Weight Height: '" Weight: lbs. oz. 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
--- NOTE | 2022-04-14 16:29 | Diagnostic Imaging Report ---
INDICATION: COVID positive, shortness of air, congestive heart failure. TECHNIQUE: Single view chest, 4:20 p.m. CORRELATION STUDY: 04/13/2022. FINDINGS: Heart size is enlarged. There is presence of pulmonary vascular congestion. Perihilar edema overall appearing increased from prior. Loop recorder device over the left hilum. Bibasilar pulmonary opacities are noted, indeterminate between infiltrate versus more likely edema. Suspect left pleural effusion. IMPRESSION: 1. Cardiac enlargement with edema overall appears adversely changed from prior. 2. Superimposed bibasilar pulmonary opacities favor probable edema versus superimposed pneumonia. Dictated by: Dictated on workstation # [id number]
--- NOTE | 2022-04-14 16:46 | Progress Note ---
Standard Progress Note Progress Notes/Assess & Plan Date Seen by a Provider: Apr 14, 2022 Time Seen by a Provider: 16:46 Progress/Assessment & Plan I reviewed CXR, looks about same as yesterday, looks congested, will give next dose of IVP OZZY Taylor MD Apr 14, 2022 16:46
[2022-04-14] MEDS: RIVAROXABAN 20 MG TABLET (XARELTO) PO SCH (17:47)
[2022-04-14] MEDS: dilTIAZem DRIP PRE-MIX 125 ML IV SCH (23:31)
[2022-04-15] MEDS: RT-ALBUTEROL HFA 8.5 GM INHALER IH SCH ×6 (02:11→22:06)
[2022-04-15 05:40] LABS: BASOPHILS % (AUTO) 0 % (0-10); EOSINOPHILS # (AUTO) 0.1 10^3/uL (0.0-0.3); EOSINOPHILS % (AUTO) 2 % (0-10); HEMATOCRIT 40 % (40-54); HEMOGLOBIN 12.7 g/dL (13.3-17.7); LYMPHOCYTES # (AUTO) 1.1 10^3/uL (1.0-4.0); LYMPHOCYTES % (AUTO) 16 % (12-44); MEAN CORPUSCULAR HEMOGLOBIN 32 pg (25-34); MEAN CORPUSCULAR HGB CONC 31 g/dL (32-36); MEAN CORPUSCULAR VOLUME 101 fL (80-99); MONOCYTES # (AUTO) 0.4 10^3/uL (0.0-1.0); MONOCYTES % (AUTO) 7 % (0-12); NEUTROPHILS # (AUTO) 5.1 10^3/uL (1.8-7.8); NEUTROPHILS % (AUTO) 75 % (42-75); PLATELET COUNT 150 10^3/uL (130-400); WHITE BLOOD COUNT 6.8 10^3/uL (4.3-11.0)
[2022-04-15 05:54] LABS: ALBUMIN 3.4 GM/DL (3.2-4.5)
[2022-04-15 05:55] LABS: CALCIUM 8.4 MG/DL (8.5-10.1)
[2022-04-15 05:57] LABS: TOTAL PROTEIN 6.8 GM/DL (6.4-8.2)
[2022-04-15 05:59] LABS: BILIRUBIN,TOTAL 2.8 MG/DL (0.1-1.0)
[2022-04-15 06:00] LABS: CREATININE SERUM 1.5 MG/DL (0.60-1.30)
[2022-04-15] MEDS ORDERED: MAGNESIUM 1 GM/100 ML IVPB 100 ML IV SCH (06:00)
[2022-04-15] MEDS ORDERED: POTASSIUM CL 10MEQ/50ML IVPB 50 ML IV SCH (06:00)
[2022-04-15] MEDS ORDERED: KCL 20 MEQ TAB (K-DUR) PO SCH (06:00)
--- NOTE | 2022-04-15 06:51 | Progress Note ---
Subjective Date Seen by a Provider: Apr 15, 2022 Time Seen by a Provider: 10:00 Subjective/Events-last exam Patient doing much better Edema much improved Oxygen maintained Supportive care continues Monitoring closely Moving to fourth floor Discussed the case with the ICU Review of Systems General: Fatigue, Malaise Focused Exam Time of Focused Exam: 10:00 Objective Exam Last Set of Vital Signs Vital Signs Date Time Temp Pulse Resp B/P (MAP) Pulse Ox O2 Delivery O2 Flow Rate FiO2 04/15/22 06:00 73 29 107/88 96 Nasal Cannula 2.00 04/15/22 04:09 35.0 04/13/22 08:56 28 Capillary Refill : Less Than 3 Seconds I&O Intake and Output 04/15/22 00:00 Intake Total 1570 ml Output Total 3060 ml Balance -1490 ml Intake Oral 1570 ml Output Urine Total 3060 ml General: Alert, Oriented X3, Cooperative, No Acute Distress Lungs: Clear to Auscultation, Normal Air Movement Heart: Regular Rate, Normal S1, Normal S2, No Murmurs Neuro: Normal Gait, Normal Speech, Strength at 5/5 X4 Ext, Normal Tone Psych/Mental Status: Mental Status NL, Mood NL Results Lab Laboratory Tests 04/15/22 05:25: White Blood Count 6.8, Red Blood Count 4.01L, Hemoglobin 12.7L, Hematocrit 40, Mean Corpuscular Volume 101H, Mean Corpuscular Hemoglobin 32, Mean Corpuscular Hemoglobin Concent 31L, Red Cell Distribution Width 16.3H, Platelet Count 150, Mean Platelet Volume 9.0, Immature Granulocyte % (Auto) 0, Neutrophils (%) (Auto) 75, Lymphocytes (%) (Auto) 16, Monocytes (%) (Auto) 7, Eosinophils (%) (Auto) 2, Basophils (%) (Auto) 0, Neutrophils # (Auto) 5.1, Lymphocytes # (Auto) 1.1, Monocytes # (Auto) 0.4, Eosinophils # (Auto) 0.1, Basophils # (Auto) 0.0, Immature Granulocyte # (Auto) 0.0, Sodium Level 140, Potassium Level 4.0, Chloride Level 102, Carbon Dioxide Level 25, Anion Gap 13, Blood Urea Nitrogen 18, Creatinine 1.50H, Estimat Glomerular Filtration Rate 51, BUN/Creatinine Ratio 12, Glucose Level 104, Calcium Level 8.4L, Corrected Calcium 8.9, Magnesium Level 2.2, Total Bilirubin 2.8H, Aspartate Amino Transf (AST/SGOT) 20, Alanine Aminotransferase (ALT/SGPT) 11, Alkaline Phosphatase 81, Total Protein 6.8, Albumin 3.4 Microbiology 04/13/22 MRSA Screen - Final, Complete MRSA not isolated Assessment/Plan Assessment/Plan Assess & Plan/Chief Complaint Continue diuresis O2 AECHF AF RVR HTN HLP Recent COVID Plan: Moved to fourth floor Needs biPAP but can't tolerate Rate control Diagnosis/Problems Diagnosis/Problems (1) Acute heart failure Status: Acute (2) Non-STEMI (non-ST elevated myocardial infarction) Status: Acute (3) Atrial fibrillation with RVR Status: Acute GISELLA KENNEDY DO Apr 15, 2022 06:51
[2022-04-15] MEDS: FUROSEMIDE 40 MG/4 ML INJ (LASIX) IVP SCH ×2 (07:53→17:14)
--- NOTE | 2022-04-15 08:02 | Tele-ICU Progress Note ---
Subjective Date Seen by a Provider: Apr 15, 2022 Time Seen by a Provider: 07:57 Subjective/Events-last exam Here for COPD exacerbation, on albuterol Leg edema is a little better, breathing is better than yesterday, Here for a fib, was on IV Cardizem @ 10 now off, po V rate 70-90's, BP is ok Yesterday increased SOB, CXR showed increased pulm edema, given another IVP Lasix 40mg-now feels much better Sepsis Event Evaluation Height, Weight, BMI Height: '" Weight: lbs. oz. kg; 38.42 BMI Method: Focused Exam Time of Focused Exam: 10:00 Exam Exam Patient acknowledged, consented, and participated in this virtual visit which was conducted using real time audio/video Vital Signs Date Time Temp Pulse Resp B/P (MAP) Pulse Ox O2 Delivery O2 Flow Rate FiO2 04/15/22 07:46 84 04/15/22 07:40 36.2 04/15/22 07:36 95 Nasal Cannula 3.00 04/15/22 06:00 73 29 107/88 96 Nasal Cannula 2.00 04/15/22 05:00 81 21 121/100 96 Nasal Cannula 2.00 04/15/22 04:09 35.0 04/15/22 04:03 Nasal Cannula 04/15/22 04:00 76 30 112/90 97 Nasal Cannula 2.00 04/15/22 03:00 71 21 105/58 95 Nasal Cannula 2.00 04/15/22 02:11 94 Nasal Cannula 3.00 04/15/22 02:00 82 18 106/87 96 Nasal Cannula 2.00 04/15/22 01:00 84 23 101/83 97 Nasal Cannula 2.00 04/15/22 01:00 88 04/15/22 00:00 Nasal Cannula 04/15/22 00:00 80 20 105/80 97 Nasal Cannula 2.00 04/14/22 23:30 35.5 04/14/22 23:00 103 32 109/81 94 Nasal Cannula 2.00 04/14/22 22:42 96 Nasal Cannula 3.00 04/14/22 22:00 87 107/77 96 Nasal Cannula 2.00 04/14/22 21:00 91 103/88 93 Nasal Cannula 2.00 04/14/22 20:00 108 25 103/82 94 Nasal Cannula 2.00 04/14/22 20:00 Nasal Cannula 04/14/22 20:00 35.7 04/14/22 19:00 114 04/14/22 19:00 96 23 103/78 96 Nasal Cannula 2.00 04/14/22 18:05 95 Nasal Cannula 3.00 04/14/22 18:00 94 33 109/91 93 Nasal Cannula 2.00 04/14/22 17:00 82 24 92/74 98 Nasal Cannula 2.00 04/14/22 16:00 103 93/83 98 Nasal Cannula 2.00 04/14/22 16:00 Nasal Cannula 2.00 04/14/22 15:00 87 19 101/85 97 Nasal Cannula 2.00 04/14/22 14:00 99 23 116/99 98 Nasal Cannula 2.00 04/14/22 13:29 97 Nasal Cannula 3.00 04/14/22 13:00 78 30 110/63 97 Nasal Cannula 2.00 04/14/22 12:39 69 04/14/22 12:00 Nasal Cannula 2.00 04/14/22 12:00 82 30 106/81 93 Nasal Cannula 2.00 04/14/22 11:00 77 107/42 95 Nasal Cannula 2.00 04/14/22 10:00 80 29 107/88 91 Nasal Cannula 2.00 04/14/22 09:00 90 98/84 94 Nasal Cannula 2.00 04/14/22 08:00 85 28 112/95 92 Nasal Cannula 2.00 04/14/22 08:00 Nasal Cannula 2.00 I & O 04/15/22 07:00 Intake Total 1670 ml Output Total 2780 ml Balance -1110 ml Height & Weight Height: '" Weight: lbs. oz. 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
[2022-04-15] MEDS: SENNOSIDES 8.6 MG (SENOKOT) TAB PO SCH ×2 (09:21→21:10)
[2022-04-15] MEDS: meTOproloL SUCCINATE 50 MG (TOPROL XL) TAB PO SCH (09:21)
[2022-04-15] MEDS: DOCUSATE SODIUM 100 MG (COLACE) CAP PO SCH ×2 (09:21→21:10)
--- NOTE | 2022-04-15 09:38 | Cardiology Progress Note ---
Progress Note-Cardiology Events since last exam Date Seen by Provider: Apr 15, 2022 Time Seen by Provider: 09:33 Vitals Last set of Vitals Signs Vital Signs 04/13/22 04/15/22 04/15/22 08:56 07:40 08:00 Temp 36.2 Pulse 76 Resp 20 B/P (MAP) 110/89 Pulse Ox 94 O2 Delivery Nasal Cannula O2 Flow Rate 2.00 FiO2 28 Labs Labs Laboratory Tests 04/15/22 05:25 Exam Vital Signs Vital Signs Date Time Temp Pulse Resp B/P (MAP) Pulse Ox O2 Delivery O2 Flow Rate FiO2 04/15/22 08:00 Nasal Cannula 04/15/22 08:00 76 20 110/89 94 2.00 04/15/22 07:40 36.2 04/13/22 08:56 28 Physical Exam Due to the patient's COVID status, I spoke with the patient from the doorway. General: The patient is not on a ventilator. HENT: Normocephalic. Atraumatic. Skin: There is no pallor. Neurologic: Oriented x3. Cranial nerves III through XII grossly intact. Moving all 4 extremities. Psychiatric: Appears cooperative. Labs Laboratory Tests Test 04/15/22 05:25 Range/Units White Blood Count 6.8 4.3-11.0 10^3/uL Red Blood Count 4.01 L 4.30-5.52 10^6/uL Hemoglobin 12.7 L 13.3-17.7 g/dL Hematocrit 40 40-54 % Mean Corpuscular Volume 101 H 80-99 fL Mean Corpuscular Hemoglobin 32 25-34 pg Mean Corpuscular Hemoglobin Concent 31 L 32-36 g/dL Red Cell Distribution Width 16.3 H 10.0-14.5 % Platelet Count 150 130-400 10^3/uL Mean Platelet Volume 9.0 9.0-12.2 fL Immature Granulocyte % (Auto) 0 % Neutrophils (%) (Auto) 75 42-75 % Lymphocytes (%) (Auto) 16 12-44 % Monocytes (%) (Auto) 7 0-12 % Eosinophils (%) (Auto) 2 0-10 % Basophils (%) (Auto) 0 0-10 % Neutrophils # (Auto) 5.1 1.8-7.8 10^3/uL Lymphocytes # (Auto) 1.1 1.0-4.0 10^3/uL Monocytes # (Auto) 0.4 0.0-1.0 10^3/uL Eosinophils # (Auto) 0.1 0.0-0.3 10^3/uL Basophils # (Auto) 0.0 0.0-0.1 10^3/uL Immature Granulocyte # (Auto) 0.0 0.0-0.1 10^3/uL Sodium Level 140 135-145 MMOL/L Potassium Level 4.0 3.6-5.0 MMOL/L Chloride Level 102 98-107 MMOL/L Carbon Dioxide Level 25 21-32 MMOL/L Anion Gap 13 5-14 MMOL/L Blood Urea Nitrogen 18 7-18 MG/DL Creatinine 1.50 H 0.60-1.30 MG/DL Estimat Glomerular Filtration Rate 51 BUN/Creatinine Ratio 12 Glucose Level 104 70-105 MG/DL Calcium Level 8.4 L 8.5-10.1 MG/DL Corrected Calcium 8.9 8.5-10.1 MG/DL Magnesium Level 2.2 1.6-2.4 MG/DL Total Bilirubin 2.8 H 0.1-1.0 MG/DL Aspartate Amino Transf (AST/SGOT) 20 5-34 U/L Alanine Aminotransferase (ALT/SGPT) 11 0-55 U/L Alkaline Phosphatase 81 40-136 U/L Total Protein 6.8 6.4-8.2 GM/DL Albumin 3.4 3.2-4.5 GM/DL Diagnosis/Problems Diagnosis/Problems (1) Acute on chronic HFrEF (heart failure with reduced ejection fraction) Assessment & Plan: His breathing has improved with intravenous Lasix. He also has concomitant COVID infection. He is on metoprolol succinate which I will attempt to increase. His blood pressures are currently on the low side. I will hold off on starting NICOLLE inhibitor, ARB or aldosterone antagonist until his blood pressure improves. (2) Persistent atrial fibrillation Assessment & Plan: He remains in atrial fibrillation. He is currently receivi ng oral metoprolol and diltiazem as well as intravenous diltiazem. I will discontinue the intravenous and oral diltiazem in light of his previous left ventricular systolic dysfunction. I will double his dose of metoprolol succinate. We will continue rivaroxaban for stroke prophylaxis. (3) Cardiomyopathy Assessment & Plan: His most recent echocardiogram was in 2019 and there showed moderate left ventricular systolic dysfunction although there was no ejection fraction in the report. As above, I will adjust his metoprolol succinate. If his blood pressure and renal function remains stable, we can consider starting low-dose NICOLLE inhibitor or ARB. At some point he will need a follow-up echocardiogram but this is not urgent. Due to his COVID status, we try to only perform echocardiograms on these patients when urgent. (4) Troponin level elevated Assessment & Plan: He may have suffered a type II non-ST elevation myocardial infarction due to atrial fibrillation with rapid ventricular rate and supply/ demand mismatch. We will continue beta-raffi. At some point, he will need an ischemic evaluation but this can be done as an outpatient. He is not on aspirin because we have him on rivaroxaban for the atrial fibrillation. (5) Primary hypertension Assessment & Plan: As above, I will make some adjustment to his current medications. (6) Stage 3a chronic kidney disease Assessment & Plan: His renal function has been stable during this hospitalization. (7) COVID-19 virus infection Status: Acute Assessment & Plan: Symptomatically improved. The hospitalist is managing this condition. XIOMARA CAMPBELL JR, MD Apr 15, 2022 09:38
[2022-04-15 16:04] VITALS: BP 118/78
[2022-04-15] MEDS: RIVAROXABAN 20 MG TABLET (XARELTO) PO SCH (17:15)
[2022-04-15 20:45] VITALS: BP 111/73
[2022-04-15] MEDS ORDERED: meTOproloL SUCCINATE 50 MG (TOPROL XL) TAB PO SCH (21:00)
[2022-04-16] VITALS (7 sets, daily range): BP systolic 95–131; BP diastolic 64–91
[2022-04-16] MEDS: RT-ALBUTEROL HFA 8.5 GM INHALER IH SCH ×6 (02:28→22:25)
[2022-04-16 05:24] LABS: BASOPHILS % (AUTO) 1 % (0-10); EOSINOPHILS # (AUTO) 0.1 10^3/uL (0.0-0.3); EOSINOPHILS % (AUTO) 1 % (0-10); HEMATOCRIT 40 % (40-54); HEMOGLOBIN 12.9 g/dL (13.3-17.7); LYMPHOCYTES # (AUTO) 1.1 10^3/uL (1.0-4.0); LYMPHOCYTES % (AUTO) 17 % (12-44); MEAN CORPUSCULAR HEMOGLOBIN 32 pg (25-34); MEAN CORPUSCULAR HGB CONC 33 g/dL (32-36); MEAN CORPUSCULAR VOLUME 98 fL (80-99); MONOCYTES # (AUTO) 0.5 10^3/uL (0.0-1.0); MONOCYTES % (AUTO) 7 % (0-12); NEUTROPHILS # (AUTO) 4.7 10^3/uL (1.8-7.8); NEUTROPHILS % (AUTO) 73 % (42-75); PLATELET COUNT 142 10^3/uL (130-400); WHITE BLOOD COUNT 6.4 10^3/uL (4.3-11.0)
[2022-04-16 05:48] LABS: ALBUMIN 3.5 GM/DL (3.2-4.5)
[2022-04-16 05:49] LABS: POTASSIUM 3.9 MMOL/L (3.6-5.0)
[2022-04-16 05:50] LABS: CALCIUM 8.6 MG/DL (8.5-10.1)
[2022-04-16 05:53] LABS: BILIRUBIN,TOTAL 3.1 MG/DL (0.1-1.0)
[2022-04-16 05:55] LABS: CREATININE SERUM 1.35 MG/DL (0.60-1.30)
[2022-04-16 05:57] LABS: MAGNESIUM 2.3 MG/DL (1.6-2.4)
--- NOTE | 2022-04-16 06:33 | Progress Note ---
Subjective Date Seen by a Provider: Apr 16, 2022 Time Seen by a Provider: 11:00 Subjective/Events-last exam Doing better No pain reported Less dyspnea No falls NO edema now Review of Systems General: Fatigue, Malaise Pulmonary: Dyspnea Cardiovascular: Edema Focused Exam Time of Focused Exam: 10:00 Objective Exam Last Set of Vital Signs Vital Signs Date Time Temp Pulse Resp B/P (MAP) Pulse Ox O2 Delivery O2 Flow Rate FiO2 04/16/22 03:39 36.1 104 22 95/72 (80) 95 Nasal Cannula 3.00 04/13/22 08:56 28 Capillary Refill : Less Than 3 Seconds I&O Intake and Output 04/16/22 00:00 Intake Total 1450 ml Output Total 2400 ml Balance -950 ml Intake Oral 1450 ml Output Urine Total 2400 ml General: Alert, Oriented X3, Cooperative, No Acute Distress Lungs: Clear to Auscultation, Normal Air Movement Heart: Regular Rate, Normal S1, Normal S2, No Murmurs Psych/Mental Status: Mental Status NL, Mood NL Results Lab Laboratory Tests 04/16/22 05:06: White Blood Count 6.4, Red Blood Count 4.04L, Hemoglobin 12.9L, Hematocrit 40, Mean Corpuscular Volume 98, Mean Corpuscular Hemoglobin 32, Mean Corpuscular Hemoglobin Concent 33, Red Cell Distribution Width 16.1H, Platelet Count 142, Mean Platelet Volume 9.0, Immature Granulocyte % (Auto) 1, Neutrophils (%) (Auto) 73, Lymphocytes (%) (Auto) 17, Monocytes (%) (Auto) 7, Eosinophils (%) (Auto) 1, Basophils (%) (Auto) 1, Neutrophils # (Auto) 4.7, Lymphocytes # (Auto) 1.1, Monocytes # (Auto) 0.5, Eosinophils # (Auto) 0.1, Basophils # (Auto) 0.0, Immature Granulocyte # (Auto) 0.0, Sodium Level 136, Potassium Level 3.9, Chloride Level 99, Carbon Dioxide Level 25, Anion Gap 12, Blood Urea Nitrogen 18, Creatinine 1.35H, Estimat Glomerular Filtration Rate 58, BUN/Creatinine Ratio 13, Glucose Level 97, Calcium Level 8.6, Corrected Calcium 9.0, Magnesium Level 2.3, Total Bilirubin 3.1H, Aspartate Amino Transf (AST/SGOT) 19, Alanine Aminotransferase (ALT/SGPT) 11, Alkaline Phosphatase 83, Total Protein 7.0, Albumin 3.5 Microbiology 04/13/22 MRSA Screen - Final, Complete MRSA not isolated Assessment/Plan Assessment/Plan Assess & Plan/Chief Complaint Continue diuresis O2 AECHF AF RVR HTN HLP Recent COVID Plan: Moved to fourth floor Needs biPAP but can't tolerate Rate control O2 maintained Diagnosis/Problems Diagnosis/Problems (1) Acute heart failure Status: Acute (2) Non-STEMI (non-ST elevated myocardial infarction) Status: Acute (3) Atrial fibrillation with RVR Status: Acute GISELLA KENNEDY DO Apr 16, 2022 06:33
[2022-04-16] MEDS: FUROSEMIDE 40 MG/4 ML INJ (LASIX) IVP SCH (08:38)
[2022-04-16] MEDS: DOCUSATE SODIUM 100 MG (COLACE) CAP PO SCH ×2 (09:56→20:40)
[2022-04-16] MEDS: SENNOSIDES 8.6 MG (SENOKOT) TAB PO SCH ×2 (09:57→20:40)
[2022-04-16] MEDS: SALINE NASAL SPRAY (OCEAN) 45 ML BTL SCH ×3 (13:17→20:40)
--- NOTE | 2022-04-16 15:49 | Cardiology Progress Note ---
Progress Note-Cardiology Events since last exam Date Seen by Provider: Apr 16, 2022 Time Seen by Provider: 15:45 Events since last exam We are following him due to atrial fibrillation and heart failure in the setting of COVID infection. He has been transferred out of the intensive care unit to the medical floor. He feels as though his breathing is improving and he hopes to be able to go home tomorrow. He denies chest pain, palpitations, or syncope. He has mild ankle edema. Certain portions of this document may have been dictated utilizing voice recognition technology. Inherent to this technology, typographical and grammatical errors may exist. As much as I am diligent to identify and correct these mistakes, some errors may remain in the document. Vitals Last set of Vitals Signs Vital Signs 04/13/22 04/16/22 04/16/22 04/16/22 08:56 12:22 12:26 15:41 Temp 36.5 Pulse 103 Resp 18 B/P (MAP) 101/71 (81) Pulse Ox 97 O2 Delivery Nasal Cannula O2 Flow Rate 3.00 FiO2 28 Labs Labs Laboratory Tests 04/16/22 05:06 Exam Vital Signs Vital Signs Date Time Temp Pulse Resp B/P (MAP) Pulse Ox O2 Delivery O2 Flow Rate FiO2 04/16/22 15:41 97 Nasal Cannula 3.00 04/16/22 12:26 103 04/16/22 12:22 36.5 18 101/71 (81) 04/13/22 08:56 28 Physical Exam Due to the patient's COVID status, I spoke with the patient from the doorway. General: The patient is not on a ventilator. HENT: Normocephalic. Atraumatic. Skin: There is no pallor. Neurologic: Oriented x3. Cranial nerves III through XII grossly intact. Moving all 4 extremities. Psychiatric: Appears cooperative. Labs Laboratory Tests Test 04/16/22 05:06 Range/Units White Blood Count 6.4 4.3-11.0 10^3/uL Red Blood Count 4.04 L 4.30-5.52 10^6/uL Hemoglobin 12.9 L 13.3-17.7 g/dL Hematocrit 40 40-54 % Mean Corpuscular Volume 98 80-99 fL Mean Corpuscular Hemoglobin 32 25-34 pg Mean Corpuscular Hemoglobin Concent 33 32-36 g/dL Red Cell Distribution Width 16.1 H 10.0-14.5 % Platelet Count 142 130-400 10^3/uL Mean Platelet Volume 9.0 9.0-12.2 fL Immature Granulocyte % (Auto) 1 % Neutrophils (%) (Auto) 73 42-75 % Lymphocytes (%) (Auto) 17 12-44 % Monocytes (%) (Auto) 7 0-12 % Eosinophils (%) (Auto) 1 0-10 % Basophils (%) (Auto) 1 0-10 % Neutrophils # (Auto) 4.7 1.8-7.8 10^3/uL Lymphocytes # (Auto) 1.1 1.0-4.0 10^3/uL Monocytes # (Auto) 0.5 0.0-1.0 10^3/uL Eosinophils # (Auto) 0.1 0.0-0.3 10^3/uL Basophils # (Auto) 0.0 0.0-0.1 10^3/uL Immature Granulocyte # (Auto) 0.0 0.0-0.1 10^3/uL Sodium Level 136 135-145 MMOL/L Potassium Level 3.9 3.6-5.0 MMOL/L Chloride Level 99 98-107 MMOL/L Carbon Dioxide Level 25 21-32 MMOL/L Anion Gap 12 5-14 MMOL/L Blood Urea Nitrogen 18 7-18 MG/DL Creatinine 1.35 H 0.60-1.30 MG/DL Estimat Glomerular Filtration Rate 58 BUN/Creatinine Ratio 13 Glucose Level 97 70-105 MG/DL Calcium Level 8.6 8.5-10.1 MG/DL Corrected Calcium 9.0 8.5-10.1 MG/DL Magnesium Level 2.3 1.6-2.4 MG/DL Total Bilirubin 3.1 H 0.1-1.0 MG/DL Aspartate Amino Transf (AST/SGOT) 19 5-34 U/L Alanine Aminotransferase (ALT/SGPT) 11 0-55 U/L Alkaline Phosphatase 83 40-136 U/L Total Protein 7.0 6.4-8.2 GM/DL Albumin 3.5 3.2-4.5 GM/DL Diagnosis/Problems Diagnosis/Problems (1) Acute on chronic HFrEF (heart failure with reduced ejection fraction) Assessment & Plan: His breathing has improved with intravenous Lasix. He also has concomitant COVID infection. He is on metoprolol succinate. We have been unable to increase this due to borderline low blood pressures. I will hold off on starting NICOLLE inhibitor, ARB or aldosterone antagonist until his blood pressure improves. I changed his furosemide from twice daily to once daily dosing on 04/15. I will obtain a follow-up chest x-ray tomorrow. We will need to transition the intravenous furosemide over to oral prior to discharge. (2) Persistent atrial fibrillation Assessment & Plan: He remains in atrial fibrillation. He was receiving oral m etoprolol and diltiazem as well as intravenous diltiazem. I discontinue the intravenous and oral diltiazem in light of his previous left ventricular systolic dysfunction and his low blood pressure. We will continue metoprolol succinate for rate control and rivaroxaban for stroke prophylaxis. (3) Cardiomyopathy Assessment & Plan: His most recent echocardiogram was in 2019 and there showed moderate left ventricular systolic dysfunction although there was no ejection fraction in the report. Continue metoprolol succinate. If his blood pressure and renal function remains stable, we can consider starting low-dose NICOLLE inhibitor or ARB. At some point he will need a follow-up echocardiogram but this is not urgent. Due to his COVID status, we try to only perform echocardiograms on these patients when urgent. (4) Troponin level elevated Assessment & Plan: He may have suffered a type II non-ST elevation myocardial infarction due to atrial fibrillation with rapid ventricular rate and supply/demand mismatch. We will continue beta-raffi. At some point, he will need an ischemic evaluation but this can be done as an outpatient. He is not on aspirin because we have him on rivaroxaban for the atrial fibrillation. (5) Primary hypertension Assessment & Plan: As above, I made some adjustment to his current medications. (6) Stage 3a chronic kidney disease Assessment & Plan: His renal function has been stable during this hospitalization. (7) COVID-19 virus infection Status: Acute Assessment & Plan: Symptomatically improved. The hospitalist is managing this condition. XIOMARA CAMPBELL JR, MD Apr 16, 2022 15:49
[2022-04-16] MEDS: RIVAROXABAN 20 MG TABLET (XARELTO) PO SCH (16:30)
[2022-04-16] MEDS: RT-ALBUTEROL HFA 8.5 GM INHALER IH PRN (22:24)
[2022-04-17] VITALS (7 sets, daily range): BP systolic 88–125; BP diastolic 50–86
[2022-04-17] MEDS: RT-ALBUTEROL HFA 8.5 GM INHALER IH SCH ×4 (03:09→20:51)
[2022-04-17 06:19] LABS: BASOPHILS % (AUTO) 1 % (0-10); EOSINOPHILS # (AUTO) 0.1 10^3/uL (0.0-0.3); EOSINOPHILS % (AUTO) 2 % (0-10); HEMATOCRIT 40 % (40-54); LYMPHOCYTES # (AUTO) 1.1 10^3/uL (1.0-4.0); LYMPHOCYTES % (AUTO) 19 % (12-44); MEAN CORPUSCULAR HEMOGLOBIN 32 pg (25-34); MEAN CORPUSCULAR HGB CONC 32 g/dL (32-36); MEAN CORPUSCULAR VOLUME 98 fL (80-99); MEAN PLATELET VOLUME 8.9 fL (9.0-12.2); MONOCYTES # (AUTO) 0.4 10^3/uL (0.0-1.0); MONOCYTES % (AUTO) 7 % (0-12); NEUTROPHILS # (AUTO) 4.2 10^3/uL (1.8-7.8); NEUTROPHILS % (AUTO) 72 % (42-75); PLATELET COUNT 145 10^3/uL (130-400); WHITE BLOOD COUNT 5.9 10^3/uL (4.3-11.0)
[2022-04-17 06:34] LABS: ALBUMIN 3.4 GM/DL (3.2-4.5)
[2022-04-17 06:35] LABS: POTASSIUM 3.8 MMOL/L (3.6-5.0)
[2022-04-17 06:36] LABS: CALCIUM 8.8 MG/DL (8.5-10.1)
[2022-04-17 06:39] LABS: BILIRUBIN,TOTAL 2.4 MG/DL (0.1-1.0)
[2022-04-17 06:41] LABS: CREATININE SERUM 1.28 MG/DL (0.60-1.30)
[2022-04-17 06:43] LABS: MAGNESIUM 2.2 MG/DL (1.6-2.4)
--- NOTE | 2022-04-17 07:44 | Diagnostic Imaging Report ---
EXAMINATION: Chest 1 view HISTORY: COVID 19 COMPARISON: 04/14/2022 FINDINGS: Heart size and pulmonary vasculature are stable. Increasing interstitial airspace opacities seen throughout both lungs. No significant pleural effusion or pneumothorax. The osseous structures are intact. IMPRESSION: 1. Increasing interstitial and airspace opacities throughout both lungs compatible with history of COVID 19 and worsening pneumonia. Dictated by: Dictated on workstation # [id number]
[2022-04-17] MEDS: FUROSEMIDE 40 MG/4 ML INJ (LASIX) IVP SCH (09:02)
[2022-04-17] MEDS: DOCUSATE SODIUM 100 MG (COLACE) CAP PO SCH ×2 (09:03→20:50)
[2022-04-17] MEDS: SALINE NASAL SPRAY (OCEAN) 45 ML BTL SCH ×4 (09:03→20:51)
[2022-04-17] MEDS: SENNOSIDES 8.6 MG (SENOKOT) TAB PO SCH ×2 (09:03→20:50)
--- NOTE | 2022-04-17 09:21 | Cardiology Progress Note ---
Subjective Date Seen by Provider: Apr 17, 2022 Time Seen by Provider: 08:15 Subjective/Events-last exam Patient sitting up in chair, noted to have some dyspnea, but reporting some improvement. Denies any chest pain Review of Systems General: No Chills, No Night Sweats, No Fatigue, No Malaise, No Appetite, No Other HEENT: No Head Aches, No Visual Changes, No Eye Pain, No Ear Pain, No Dysphasia, No Sinus Congestion, No Post Nasal Drip, No Sore Throat, No Other Pulmonary: Dyspnea; No Cough, No Pleuritic Chest Pain, No Other Cardiovascular: No: Chest Pain, Palpitations, Orthopnea, Paroxysmal Noc. Dyspnea, Edema, Lt Headedness, Other Focused Exam Time of Focused Exam: 10:00 Objective-Cardiology Exam Last Set of Vital Signs Vital Signs 04/13/22 04/17/22 08:56 11:57 Temp 35.6 Pulse 95 Resp 18 B/P (MAP) 98/66 (77) Pulse Ox 99 O2 Delivery Nasal Cannula O2 Flow Rate 3.00 FiO2 28 I&O Intake and Output 04/17/22 00:00 Intake Total 1840 ml Output Total 2550 ml Balance -710 ml Intake Oral 1840 ml Output Urine Total 2550 ml General: Alert, Oriented X3, Cooperative, No Acute Distress Neck: Supple Lungs: Clear to Auscultation, Normal Air Movement Heart: Regular Rate, Normal S1, Normal S2, No Murmurs Abdomen: Soft, No Tenderness, No Hepatosplenomegaly, No Masses Neuro: Normal Gait, Normal Speech, Strength at 5/5 X4 Ext, Normal Tone Psych/Mental Status: Mental Status NL, Mood NL Results Lab Laboratory Tests 04/17/22 05:57 A/P-Cardiology Admission Diagnosis Shortness of breath Atrial fibrillation Non-ST elevation myocardial infarction Congestive heart failure, acute left ventricular systolic dysfunction Assessment/Plan Shortness of breath, pedal edema with fluid overload Elevated BNP., Congestive heart failure, worsened by atrial fibrillation Responding well to diuretics. Continue with aggressive diuresis and monitor Mild elevation in troponin level, non-ST elevation myocardial infarction, probably due to atrial fibrillation with tachycardia. Underlying coronary artery disease cannot be excluded Had history of troponin during previous admission in March 2022, I am planning to proceed with stress test as an outpatient Atrial fibrillation with borderline tachycardia, had history of paroxysmal atrial fibrillation, seen in May 2020 with atrial fibrillation and during that admission 12 April 04, 2022 patient had atrial fibrillation that is persistent. Slightly tachycardic this morning with HR 110-120s I will add Cardizem CD 120 mg again. His medication continue on metoprolol [id number] score of 2, yearly risk of stroke without oral anticoagulation is 2.2 percent, maintained on Eliquis. COVID-19 illness, admitted on April 04, 2022 and discharged April 07, 2022, still in isolation at this time. Management per medical services Hypertension, monitor blood pressure on current medication Palpitation, noted to have frequent PVC's on EKG and loop recorder, continue to monitor Syncope, sustained a fall off a ladder with subarachnoid hemorrhage in May 2020, seen and treated in . Stress test done at on June 08, 2020 reporting no significant ischemia or infarction. Echocardiogram was normal Nonobstructive carotid artery stenosis, ultrasound was done in November 2021. Continue to monitor Discussed with Dr. Cade, possible discharge tomorrow Supervisory-Addendum Brief Supervisory Addendum Participated in pt care: history, MDM, physical Personally performed: exam, history, MDM Care discussed with: ANNA Results interpretation: Verified all documentation Notes: Patient was seen and evaluated with Thanh, examination performed, management plan was discussed, agree with the current scribed note, I made few changes to the note using Italic font THANH KESSLER Apr 17, 2022 09:21 AUDELIA BEARD MD Apr 17, 2022 12:40
--- NOTE | 2022-04-17 11:08 | Progress Note ---
Subjective Date Seen by a Provider: Apr 17, 2022 Time Seen by a Provider: 10:45 Subjective/Events-last exam Pt is doing really well Home O2 eval showed 2L continuous and 3L on exertion PT and OT ordered [facility]ses [facility] for pharmacy Cardiology wants one more day since he remained a little bit tachycardic Review of Systems General: Fatigue, Malaise Focused Exam Time of Focused Exam: 10:00 Objective Exam Last Set of Vital Signs Vital Signs Date Time Temp Pulse Resp B/P (MAP) Pulse Ox O2 Delivery O2 Flow Rate FiO2 04/17/22 08:14 96 Nasal Cannula 2.00 04/17/22 08:00 35.7 107 18 125/86 (99) 04/13/22 08:56 28 Capillary Refill : Less Than 3 Seconds I&O Intake and Output 04/16/22 23:59 Intake Total 1840 ml Output Total 2550 ml Balance -710 ml Intake Oral 1840 ml Output Urine Total 2550 ml General: Alert, Oriented X3, Cooperative, No Acute Distress Lungs: Clear to Auscultation, Normal Air Movement Heart: Regular Rate, Normal S1, Normal S2, No Murmurs Neuro: Normal Gait, Normal Speech, Strength at 5/5 X4 Ext, Normal Tone Psych/Mental Status: Mental Status NL, Mood NL Results Lab Laboratory Tests 04/17/22 05:57: White Blood Count 5.9, Red Blood Count 4.10L, Hemoglobin 13.0L, Hematocrit 40, Mean Corpuscular Volume 98, Mean Corpuscular Hemoglobin 32, Mean Corpuscular Hemoglobin Concent 32, Red Cell Distribution Width 15.7H, Platelet Count 145, Mean Platelet Volume 8.9L, Immature Granulocyte % (Auto) 0, Neutrophils (%) (Auto) 72, Lymphocytes (%) (Auto) 19, Monocytes (%) (Auto) 7, Eosinophils (%) (Auto) 2, Basophils (%) (Auto) 1, Neutrophils # (Auto) 4.2, Lymphocytes # (Auto) 1.1, Monocytes # (Auto) 0.4, Eosinophils # (Auto) 0.1, Basophils # (Auto) 0.0, Immature Granulocyte # (Auto) 0.0, Sodium Level 137, Potassium Level 3.8, Chloride Level 99, Carbon Dioxide Level 25, Anion Gap 13, Blood Urea Nitrogen 18, Creatinine 1.28, Estimat Glomerular Filtration Rate 61, BUN/Creatinine Ratio 14, Glucose Level 93, Calcium Level 8.8, Corrected Calcium 9.3, Magnesium Level 2.2, Total Bilirubin 2.4H, Aspartate Amino Transf (AST/SGOT) 20, Alanine Aminotransferase (ALT/SGPT) 12, Alkaline Phosphatase 82, Total Protein 7.0, Albumin 3.4 Microbiology 04/13/22 MRSA Screen - Final, Complete MRSA not isolated Assessment/Plan Assessment/Plan Assess & Plan/Chief Complaint Continue diuresis O2 AECHF AF RVR HTN HLP Recent COVID Plan: Moved to fourth floor Needs biPAP but can't tolerate Rate control O2 maintained Diagnosis/Problems Diagnosis/Problems (1) Acute heart failure Status: Acute (2) Non-STEMI (non-ST elevated myocardial infarction) Status: Acute (3) Atrial fibrillation with RVR Status: Acute GISELLA KENNEDY DO Apr 17, 2022 11:08
--- NOTE | 2022-04-17 11:39 | Physical Therapy Progress Note ---
Therapy Progress Note Per RN, patient is up independently in room without difficulty. No skilled PT indicated at this time. AMILCAR MESA PT Apr 17, 2022 11:39
[2022-04-17] MEDS: dilTIAZem120 MG (CARDIZEM CD) CAP PO SCH (11:57)
--- NOTE | 2022-04-17 13:35 | Occ Therapy Progress Note ---
Therapy Progress Note OT orders received and chart reviewed. OT talked with pt's nurse who indicates pt is up independently in his room, able to use bathroom without difficulty. No skilled OT services indicated at this time, d/c from OT. VERONICA SHEPPARD OT Apr 17, 2022 13:35
[2022-04-17] MEDS: RIVAROXABAN 20 MG TABLET (XARELTO) PO SCH (17:43)
[2022-04-18] MEDS: RT-ALBUTEROL HFA 8.5 GM INHALER IH SCH ×2 (02:24→10:44)
[2022-04-18 04:28] VITALS: BP 108/65
[2022-04-18 05:59] LABS: BASOPHILS % (AUTO) 1 % (0-10); EOSINOPHILS # (AUTO) 0.2 10^3/uL (0.0-0.3); EOSINOPHILS % (AUTO) 3 % (0-10); HEMATOCRIT 40 % (40-54); LYMPHOCYTES % (AUTO) 19 % (12-44); MEAN CORPUSCULAR HEMOGLOBIN 32 pg (25-34); MEAN CORPUSCULAR HGB CONC 32 g/dL (32-36); MEAN CORPUSCULAR VOLUME 100 fL (80-99); MEAN PLATELET VOLUME 9.5 fL (9.0-12.2); MONOCYTES # (AUTO) 0.5 10^3/uL (0.0-1.0); MONOCYTES % (AUTO) 8 % (0-12); NEUTROPHILS # (AUTO) 3.7 10^3/uL (1.8-7.8); NEUTROPHILS % (AUTO) 69 % (42-75); PLATELET COUNT 159 10^3/uL (130-400); WHITE BLOOD COUNT 5.3 10^3/uL (4.3-11.0)
[2022-04-18 06:12] LABS: ALBUMIN 3.3 GM/DL (3.2-4.5); POTASSIUM 3.7 MMOL/L (3.6-5.0)
[2022-04-18 06:14] LABS: CALCIUM 8.6 MG/DL (8.5-10.1)
[2022-04-18 06:15] LABS: TOTAL PROTEIN 6.9 GM/DL (6.4-8.2)
[2022-04-18 06:17] LABS: BILIRUBIN,TOTAL 2.1 MG/DL (0.1-1.0)
[2022-04-18 06:18] LABS: CREATININE SERUM 1.18 MG/DL (0.60-1.30)
[2022-04-18 06:21] LABS: MAGNESIUM 2.5 MG/DL (1.6-2.4)
[2022-04-18] MEDS ORDERED: KCL 10 MEQ TAB (MICRO K) PO SCH (07:00)
[2022-04-18 07:49] VITALS: BP 98/40
--- NOTE | 2022-04-18 08:42 | Cardiology Progress Note ---
Subjective Date Seen by Provider: Apr 18, 2022 Time Seen by Provider: 08:40 Subjective/Events-last exam Patient is sitting up in bed, no new complaints. Focused Exam Time of Focused Exam: 10:00 Objective-Cardiology Exam Last Set of Vital Signs Vital Signs 04/13/22 04/18/22 08:56 07:49 Temp 36.8 Pulse 104 Resp 20 B/P (MAP) 98/40 (59) Pulse Ox 97 O2 Delivery Nasal Cannula O2 Flow Rate 2.00 FiO2 28 I&O Intake and Output 04/18/22 00:00 Intake Total 1675 ml Output Total 3100 ml Balance -1425 ml Intake Oral 1675 ml Output Urine Total 3100 ml General: Alert, Oriented X3, Cooperative, No Acute Distress Neck: Supple Lungs: Clear to Auscultation, Normal Air Movement Heart: Regular Rate, Normal S1, Normal S2, No Murmurs Abdomen: Soft, No Tenderness, No Hepatosplenomegaly, No Masses Neuro: Normal Gait, Normal Speech, Strength at 5/5 X4 Ext, Normal Tone Psych/Mental Status: Mental Status NL, Mood NL Results Lab Laboratory Tests 04/18/22 05:51 A/P-Cardiology Admission Diagnosis Shortness of breath Atrial fibrillation Non-ST elevation myocardial infarction Congestive heart failure, acute left ventricular systolic dysfunction Assessment/Plan Shortness of breath, pedal edema with fluid overload Elevated BNP., Congestive heart failure, worsened by atrial fibrillation Responding well to diuretics. Continue on Lasix orally and monitor tolerance and response. Mild elevation in troponin level, non-ST elevation myocardial infarction, probably due to atrial fibrillation with tachycardia. Underlying coronary artery disease cannot be excluded Had history of troponin during previous admission in March 2022, I am planning to proceed with stress test as an outpatient Atrial fibrillation with borderline tachycardia, had history of paroxysmal atrial fibrillation, seen in May 2020 with atrial fibrillation and during that admission 12 April 04, 2022 patient had atrial fibrillation that is persistent. Borderline hypotensive after starting Cardizem, I am stopping Toprol and maintaining Cardizem. Continue to monitor [id number] score of 2, yearly risk of stroke without oral anticoagulation is 2.2 percent, maintained on Eliquis. COVID-19 illness, admitted on April 04, 2022 and discharged April 07, 2022, still in isolation at this time. Management per medical services Hypertension, currently hypotensive, I will d/c Toprol XL, continue Cardizem CD 120mg daily Palpitation, noted to have frequent PVC's on EKG and loop recorder, continue to monitor Syncope, sustained a fall off a ladder with subarachnoid hemorrhage in May 2020, seen and treated in . Stress test done at on June 08, 2020 reporting no significant ischemia or infarction. Echocardiogram was normal Nonobstructive carotid artery stenosis, ultrasound was done in November 2021. Continue to monitor Okay for discharge and follow-up as an outpatient Supervisory-Addendum Brief Supervisory Addendum Participated in pt care: history, MDM, physical Personally performed: exam, history, MDM Care discussed with: ANNA Results interpretation: Verified all documentation Notes: Patient was seen and evaluated with Thanh, examination performed, management plan was discussed, agree with the current scribed note, I made few changes to the note using Italic font Patient was seen at bedside, laying down comfortably, feeling better Borderline hypotensive in the stop Toprol and Cardizem monitor tolerance and response Okay for discharge and follow-up as an outpatient THANH KESSLER Apr 18, 2022 08:42 AUDELIA BEARD MD Apr 18, 2022 10:25
[2022-04-18] MEDS: SALINE NASAL SPRAY (OCEAN) 45 ML BTL SCH ×2 (08:59→13:01)
[2022-04-18] MEDS: SENNOSIDES 8.6 MG (SENOKOT) TAB PO SCH (09:00)
[2022-04-18] MEDS ORDERED: FUROSEMIDE 20 MG (LASIX) TAB PO SCH (09:00)
[2022-04-18] MEDS: dilTIAZem120 MG (CARDIZEM CD) CAP PO SCH (09:00)
[2022-04-18] MEDS: DOCUSATE SODIUM 100 MG (COLACE) CAP PO SCH (09:00)
[2022-04-18] MEDS ORDERED: POTA-160 PO (12:07)
[2022-04-18] MEDS ORDERED: FURO20TA4 PO (12:07)
--- NOTE | 2022-04-18 12:10 | Discharge Summary ---
Diagnosis/Chief Complaint Date of Admission Apr 13, 2022 at 06:54 Date of Discharge Discharge Date: Apr 18, 2022 Discharge Diagnosis AECHF AF RVR HTN HLP Recent COVID Discharge Summary Discharge Physical Examination Allergies: Coded Allergies: No Known Drug Allergies (Unverified , 06/04/20) Vitals & I&Os Vital Signs Date Time Temp Pulse Resp B/P (MAP) Pulse Ox O2 Delivery O2 Flow Rate FiO2 04/18/22 12:52 04/18/22 12:09 104 04/18/22 10:45 95 Nasal Cannula 3.00 04/18/22 07:49 36.8 20 04/13/22 08:56 28 General Appearance: Alert, Oriented X3, Cooperative Respiratory: Clear to Auscultation Cardiovascular: Regular Rate Neuro: Normal Gait, Normal Speech, Strength at 5/5 X4 Ext Psych/Mental Status: Mental Status NL Hospital Course Was the Problem List Reviewed?: Yes Standard hospital course after he was admitted for recurrent A. fib with RVR and due to recent COVID he remained in isolation. He required oxygen but did not tolerate BiPAP. IV Lasix was helpful in diuresis and Cardizem drip ultimately converted patient back to normal sinus rhythm. Patient was maintained on oral anticoagulation. He required 2 L of oxygen continuous and 3 L on exertion that order was placed at discharge. Overall prognosis guarded considering his history of noncompliance and now requiring oxygen and obvious progression of his heart and lung dysfunction. Labs (last 24 hrs) Laboratory Tests 04/13/22 04:48: White Blood Count 8.1, Red Blood Count 4.43, Hemoglobin 14.1, Hematocrit 43, Mean Corpuscular Volume 98, Mean Corpuscular Hemoglobin 32, Mean Corpuscular Hemoglobin Concent 33, Red Cell Distribution Width 16.5H, Platelet Count 194, Mean Platelet Volume 9.2, Immature Granulocyte % (Auto) 0, Neutrophils (%) (Auto) 77H, Lymphocytes (%) (Auto) 15, Monocytes (%) (Auto) 6, Eosinophils (%) (Auto) 1, Basophils (%) (Auto) 0, Neutrophils # (Auto) 6.3, Lymphocytes # (Auto) 1.2, Monocytes # (Auto) 0.5, Eosinophils # (Auto) 0.1, Basophils # (Auto) 0.0, Immature Granulocyte # (Auto) 0.0, Prothrombin Time 31.4H, INR Comment 3.0H, Activated Partial Thromboplast Time 46H, Sodium Level 140, Potassium Level 4.0, Chloride Level 105, Carbon Dioxide Level 22, Anion Gap 13, Blood Urea Nitrogen 18, Creatinine 1.52H, Estimat Glomerular Filtration Rate 50, BUN/Creatinine Ratio 12, Glucose Level 114H, Calcium Level 9.1, Corrected Calcium 9.2, Magnesium Level 2.4, Total Bilirubin 3.3H, Aspartate Amino Transf (AST/SGOT) 25, Alanine Aminotransferase (ALT/SGPT) 13, Alkaline Phosphatase 94, Myoglobin 89.9, Troponin I 0.057H, C-Reactive Protein High Sensitivity 2.81H, B-Type Natriuretic Peptide 379.1H, Total Protein 7.7, Albumin 3.9 04/14/22 04:29: White Blood Count 7.0, Red Blood Count 4.08L, Hemoglobin 13.0L, Hematocrit 40, Mean Corpuscular Volume 99, Mean Corpuscular Hemoglobin 32, Mean Corpuscular Hemoglobin Concent 32, Red Cell Distribution Width 16.4H, Platelet Count 154, Mean Platelet Volume 9.0, Immature Granulocyte % (Auto) 0, Neutrophils (%) (Auto) 73, Lymphocytes (%) (Auto) 19, Monocytes (%) (Auto) 6, Eosinophils (%) (Auto) 1, Basophils (%) (Auto) 0, Neutrophils # (Auto) 5.2, Lymphocytes # (Auto) 1.3, Monocytes # (Auto) 0.4, Eosinophils # (Auto) 0.1, Basophils # (Auto) 0.0, Immature Granulocyte # (Auto) 0.0, Sodium Level 138, Potassium Level 3.6, Chloride Level 104, Carbon Dioxide Level 25, Anion Gap 9, Blood Urea Nitrogen 16, Creatinine 1.53H, Estimat Glomerular Filtration Rate 50, BUN/Creatinine Ratio 10, Glucose Level 112H, Calcium Level 8.6, Corrected Calcium 9.0, Magnesium Level 2.3, Total Bilirubin 2.8H, Aspartate Amino Transf (AST/SGOT) 23, Alanine Aminotransferase (ALT/SGPT) 11, Alkaline Phosphatase 85, Total Protein 7.0, Albumin 3.5, Phosphorus Level 4.3, Triglycerides Level 63, Cholesterol Level 69, LDL Cholesterol Direct 34, VLDL Cholesterol 13, HDL Cholesterol 27L 04/15/22 05:25: White Blood Count 6.8, Red Blood Count 4.01L, Hemoglobin 12.7L, Hematocrit 40, Mean Corpuscular Volume 101H, Mean Corpuscular Hemoglobin 32, Mean Corpuscular Hemoglobin Concent 31L, Red Cell Distribution Width 16.3H, Platelet Count 150, Mean Platelet Volume 9.0, Immature Granulocyte % (Auto) 0, Neutrophils (%) (Auto) 75, Lymphocytes (%) (Auto) 16, Monocytes (%) (Auto) 7, Eosinophils (%) (Auto) 2, Basophils (%) (Auto) 0, Neutrophils # (Auto) 5.1, Lymphocytes # (Auto) 1.1, Monocytes # (Auto) 0.4, Eosinophils # (Auto) 0.1, Basophils # (Auto) 0.0, Immature Granulocyte # (Auto) 0.0, Sodium Level 140, Potassium Level 4.0, Chloride Level 102, Carbon Dioxide Level 25, Anion Gap 13, Blood Urea Nitrogen 18, Creatinine 1.50H, Estimat Glomerular Filtration Rate 51, BUN/Creatinine Rat io 12, Glucose Level 104, Calcium Level 8.4L, Corrected Calcium 8.9, Magnesium Level 2.2, Total Bilirubin 2.8H, Aspartate Amino Transf (AST/SGOT) 20, Alanine Aminotransferase (ALT/SGPT) 11, Alkaline Phosphatase 81, Total Protein 6.8, Albumin 3.4 04/16/22 05:06: White Blood Count 6.4, Red Blood Count 4.04L, Hemoglobin 12.9L, Hematocrit 40, Mean Corpuscular Volume 98, Mean Corpuscular Hemoglobin 32, Mean Corpuscular Hemoglobin Concent 33, Red Cell Distribution Width 16.1H, Platelet Count 142, Mean Platelet Volume 9.0, Immature Granulocyte % (Auto) 1, Neutrophils (%) (Auto) 73, Lymphocytes (%) (Auto) 17, Monocytes (%) (Auto) 7, Eosinophils (%) (Auto) 1, Basophils (%) (Auto) 1, Neutrophils # (Auto) 4.7, Lymphocytes # (Auto) 1.1, Monocytes # (Auto) 0.5, Eosinophils # (Auto) 0.1, Basophils # (Auto) 0.0, Immature Granulocyte # (Auto) 0.0, Sodium Level 136, Potassium Level 3.9, Chloride Level 99, Carbon Dioxide Level 25, Anion Gap 12, Blood Urea Nitrogen 18, Creatinine 1.35H, Estimat Glomerular Filtration Rate 58, BUN/Creatinine Ratio 13, Glucose Level 97, Calcium Level 8.6, Corrected Calcium 9.0, Magnesium Level 2.3, Total Bilirubin 3.1H, Aspartate Amino Transf (AST/SGOT) 19, Alanine Aminotransferase (ALT/SGPT) 11, Alkaline Phosphatase 83, Total Protein 7.0, Albumin 3.5 04/17/22 05:57: White Blood Count 5.9, Red Blood Count 4.10L, Hemoglobin 13.0L, Hematocrit 40, Mean Corpuscular Volume 98, Mean Corpuscular Hemoglobin 32, Mean Corpuscular Hemoglobin Concent 32, Red Cell Distribution Width 15.7H, Platelet Count 145, Mean Platelet Volume 8.9L, Immature Granulocyte % (Auto) 0, Neutrophils (%) (Auto) 72, Lymphocytes (%) (Auto) 19, Monocytes (%) (Auto) 7, Eosinophils (%) (Auto) 2, Basophils (%) (Auto) 1, Neutrophils # (Auto) 4.2, Lymphocytes # (Auto) 1.1, Monocytes # (Auto) 0.4, Eosinophils # (Auto) 0.1, Basophils # (Auto) 0.0, Immature Granulocyte # (Auto) 0.0, Sodium Level 137, Potassium Level 3.8, Chloride Level 99, Carbon Dioxide Level 25, Anion Gap 13, Blood Urea Nitrogen 18, Creatinine 1.28, Estimat Glomerular Filtration Rate 61, BUN/Creatinine Ratio 14, Glucose Level 93, Calcium Level 8.8, Corrected Calcium 9.3, Magnesium Level 2.2, Total Bilirubin 2.4H, Aspartate Amino Transf (AST/SGOT) 20, Alanine Aminotransferase (ALT/SGPT) 12, Alkaline Phosphatase 82, Total Protein 7.0, Albumin 3.4 04/18/22 05:51: White Blood Count 5.3, Red Blood Count 4.04L, Hemoglobin 13.0L, Hematocrit 40, Mean Corpuscular Volume 100H, Mean Corpuscular Hemoglobin 32, Mean Corpuscular Hemoglobin Concent 32, Red Cell Distribution Width 15.8H, Platelet Count 159, Mean Platelet Volume 9.5, Immature Granulocyte % (Auto) 0, Neutrophils (%) (Auto) 69, Lymphocytes (%) (Auto) 19, Monocytes (%) (Auto) 8, Eosinophils (%) (Auto) 3, Basophils (%) (Auto) 1, Neutrophils # (Auto) 3.7, Lymphocytes # (Auto) 1.0, Monocytes # (Auto) 0.5, Eosinophils # (Auto) 0.2, Basophils # (Auto) 0.0, Immature Granulocyte # (Auto) 0.0, Sodium Level 135, Potassium Level 3.7, Chloride Level 101, Carbon Dioxide Level 25, Anion Gap 9, Blood Urea Nitrogen 18, Creatinine 1.18, Estimat Glomerular Filtration Rate 68, BUN/Creatinine Ratio 15, Glucose Level 93, Calcium Level 8.6, Corrected Calcium 9.2, Magnesium Level 2.5H, Total Bilirubin 2.1H, Aspartate Amino Transf (AST/SGOT) 20, Alanine Aminotransferase (ALT/SGPT) 12, Alkaline Phosphatase 75, Total Protein 6.9, Albumin 3.3 Microbiology 04/13/22 MRSA Screen - Final, Complete MRSA not isolated Pending Labs Microbiology Date/Time Source Procedure Growth Status 04/13/22 08:00 Nasal MRSA Screen - Final MRSA not isolated Complete Laboratory Tests 04/13/22 04:48: White Blood Count 8.1, Red Blood Count 4.43, Hemoglobin 14.1, Hematocrit 43, Mean Corpuscular Volume 98, Mean Corpuscular Hemoglobin 32, Mean Corpuscular Hemoglobin Concent 33, Red Cell Distribution Width 16.5, Platelet Count 194, Mean Platelet Volume 9.2, Immature Granulocyte % (Auto) 0, Neutrophils (%) (Auto) 77, Lymphocytes (%) (Auto) 15, Monocytes (%) (Auto) 6, Eosinophils (%) (Auto) 1, Basophils (%) (Auto) 0, Neutrophils # (Auto) 6.3, Lymphocytes # (Auto) 1.2, Monocytes # (Auto) 0.5, Eosinophils # (Auto) 0.1, Basophils # (Auto) 0.0, Immature Granulocyte # (Auto) 0.0, Prothrombin Time 31.4, INR Comment 3.0, Activated Partial Thromboplast Time 46, Sodium Level 140, Potassium Level 4.0, Chloride Level 105, Carbon Dioxide Level 22, Anion Gap 13, Blood Urea Nitrogen 18, Creatinine 1.52, Estimat Glomerular Filtration Rate 50, BUN/Creatinine Ratio 12, Glucose Level 114, Calcium Level 9.1, Corrected Calcium 9.2, Magnesium Level 2.4, Total Bilirubin 3.3, Aspartate Amino Transf (AST/SGOT) 25, Alanine Aminotransferase (ALT/SGPT) 13, Alkaline Phosphatase 94, Myoglobin 89.9, Troponin I 0.057, C-Reactive Protein High Sensitivity 2.81, B-Type Natriuretic Peptide 379.1, Total Protein 7.7, Albumin 3.9 04/14/22 04:29: White Blood Count 7.0, Red Blood Count 4.08, Hemoglobin 13.0, Hematocrit 40, Mean Corpuscular Volume 99, Mean Corpuscular Hemoglobin 32, Mean Corpuscular Hemoglobin Concent 32, Red Cell Distribution Width 16.4, Platelet Count 154, Mean Platelet Volume 9.0, Immature Granulocyte % (Auto) 0, Neutrophils (%) (Auto) 73, Lymphocytes (%) (Auto) 19, Monocytes (%) (Auto) 6, Eosinophils (%) (Auto) 1, Basophils (%) (Auto) 0, Neutrophils # (Auto) 5.2, Lymphocytes # (Auto) 1.3, Monocytes # (Auto) 0.4, Eosinophils # (Auto) 0.1, Basophils # (Auto) 0.0, Immature Granulocyte # (Auto) 0.0, Sodium Level 138, Potassium Level 3.6, Chloride Level 104, Carbon Dioxide Level 25, Anion Gap 9, Blood Urea Nitrogen 16, Creatinine 1.53, Estimat Glomerular Filtration Rate 50, BUN/Creatinine Ratio 10, Glucose Level 112, Calcium Level 8.6, Corrected Calcium 9.0, Magnesium Level 2.3, Total Bilirubin 2.8, Aspartate Amino Transf (AST/SGOT) 23, Alanine Aminotransferase (ALT/SGPT) 11, Alkaline Phosphatase 85, Total Protein 7.0, Albumin 3.5, Phosphorus Level 4.3, Triglycerides Level 63, Cholesterol Level 69, LDL Cholesterol Direct 34, VLDL Cholesterol 13, HDL Cholesterol 27 04/15/22 05:25: White Blood Count 6.8, Red Blood Count 4.01, Hemoglobin 12.7, Hematocrit 40, Mean Corpuscular Volume 101, Mean Corpuscular Hemoglobin 32, Mean Corpuscular Hemoglobin Concent 31, Red Cell Distribution Width 16.3, Platelet Count 150, Mean Platelet Volume 9.0, Immature Granulocyte % (Auto) 0, Neutrophils (%) (Auto) 75, Lymphocytes (%) (Auto) 16, Monocytes (%) (Auto) 7, Eosinophils (%) (Auto) 2, Basophils (%) (Auto) 0, Neutrophils # (Auto) 5.1, Lymphocytes # (Auto) 1.1, Monocytes # (Auto) 0.4, Eosinophils # (Auto) 0.1, Basophils # (Auto) 0.0, Immature Granulocyte # (Auto) 0.0, Sodium Level 140, Potassium Level 4.0, Chloride Level 102, Carbon Dioxide Level 25, Anion Gap 13, Blood Urea Nitrogen 18, Creatinine 1.50, Estimat Glomerular Filtration Rate 51, BUN/Creatinine Ratio 12, Glucose Level 104, Calcium Level 8.4, Corrected Calcium 8.9, Magnesium Level 2.2, Total Bilirubin 2.8, Aspartate Amino Transf (AST/SGOT) 20, Alanine Aminotransferase (ALT/SGPT) 11, Alkaline Phosphatase 81, Total Protein 6.8, Albumin 3.4 04/16/22 05:06: White Blood Count 6.4, Red Blood Count 4.04, Hemoglobin 12.9, Hematocrit 40, Mean Corpuscular Volume 98, Mean Corpuscular Hemoglobin 32, Mean Corpuscular Hemoglobin Concent 33, Red Cell Distribution Width 16.1, Platelet Count 142, Mean Platelet Volume 9.0, Immature Granulocyte % (Auto) 1, Neutrophils (%) (A uto) 73, Lymphocytes (%) (Auto) 17, Monocytes (%) (Auto) 7, Eosinophils (%) (Auto) 1, Basophils (%) (Auto) 1, Neutrophils # (Auto) 4.7, Lymphocytes # (Auto) 1.1, Monocytes # (Auto) 0.5, Eosinophils # (Auto) 0.1, Basophils # (Auto) 0.0, Immature Granulocyte # (Auto) 0.0, Sodium Level 136, Potassium Level 3.9, Chloride Level 99, Carbon Dioxide Level 25, Anion Gap 12, Blood Urea Nitrogen 18, Creatinine 1.35, Estimat Glomerular Filtration Rate 58, BUN/Creatinine Ratio 13, Glucose Level 97, Calcium Level 8.6, Corrected Calcium 9.0, Magnesium Level 2.3, Total Bilirubin 3.1, Aspartate Amino Transf (AST/SGOT) 19, Alanine Aminotransferase (ALT/SGPT) 11, Alkaline Phosphatase 83, Total Protein 7.0, Albumin 3.5 04/17/22 05:57: White Blood Count 5.9, Red Blood Count 4.10, Hemoglobin 13.0, Hematocrit 40, Mean Corpuscular Volume 98, Mean Corpuscular Hemoglobin 32, Mean Corpuscular Hemoglobin Concent 32, Red Cell Distribution Width 15.7, Platelet Count 145, Mean Platelet Volume 8.9, Immature Granulocyte % (Auto) 0, Neutrophils (%) (Auto) 72, Lymphocytes (%) (Auto) 19, Monocytes (%) (Auto) 7, Eosinophils (%) (Auto) 2, Basophils (%) (Auto) 1, Neutrophils # (Auto) 4.2, Lymphocytes # (Auto) 1.1, Monocytes # (Auto) 0.4, Eosinophils # (Auto) 0.1, Basophils # (Auto) 0.0, Immature Granulocyte # (Auto) 0.0, Sodium Level 137, Potassium Level 3.8, Chloride Level 99, Carbon Dioxide Level 25, Anion Gap 13, Blood Urea Nitrogen 18, Creatinine 1.28, Estimat Glomerular Filtration Rate 61, BUN/Creatinine Ratio 14, Glucose Level 93, Calcium Level 8.8, Corrected Calcium 9.3, Magnesium Level 2.2, Total Bilirubin 2.4, Aspartate Amino Transf (AST/SGOT) 20, Alanine Aminotransferase (ALT/SGPT) 12, Alkaline Phosphatase 82, Total Protein 7.0, Albumin 3.4 04/18/22 05:51: White Blood Count 5.3, Red Blood Count 4.04, Hemoglobin 13.0, Hematocrit 40, Mean Corpuscular Volume 100, Mean Corpuscular Hemoglobin 32, Mean Corpuscular Hemoglobin Concent 32, Red Cell Distribution Width 15.8, Platelet Count 159, Mean Platelet Volume 9.5, Immature Granulocyte % (Auto) 0, Neutrophils (%) (Auto) 69, Lymphocytes (%) (Auto) 19, Monocytes (%) (Auto) 8, Eosinophils (%) (Auto) 3, Basophils (%) (Auto) 1, Neutrophils # (Auto) 3.7, Lymphocytes # (Auto) 1.0, Monocytes # (Auto) 0.5, Eosinophils # (Auto) 0.2, Basophils # (Auto) 0.0, Immature Granulocyte # (Auto) 0.0, Sodium Level 135, Potassium Level 3.7, Chloride Level 101, Carbon Dioxide Level 25, Anion Gap 9, Blood Urea Nitrogen 18, Creatinine 1.18, Estimat Glomerular Filtration Rate 68, BUN/Creatinine Ratio 15, Glucose Level 93, Calcium Level 8.6, Corrected Calcium 9.2, Magnesium Level 2.5, Total Bilirubin 2.1, Aspartate Amino Transf (AST/SGOT) 20, Alanine Aminotransferase (ALT/SGPT) 12, Alkaline Phosphatase 75, Total Protein 6.9, Albumin 3.3 Discharge Home Medications: Active Scripts Active Furosemide 20 Mg Tablet 20 Mg PO DAILY Klor-Con 10 (Potassium Chloride) 10 Meq Tablet.er 10 Meq PO DAILY@0700 Aspirin EC (Aspirin) 81 Mg Tablet.dr 81 Mg PO DAILY Diltiazem 24Hr ER (Diltiazem HCl) 120 Mg Cap.er.24h 120 Mg PO DAILY Proair Hfa (Albuterol Sulfate) 90 Mcg Hfa.aer.ad 0 Gm IH RTQ4HR 2 puffs q4hrs prn Reported Xarelto Tablet (Rivaroxaban) 20 Mg Tablet 20 Mg PO DAILY@1700 Instructions to patient/family Please see electronic discharge instructions given to patient. Diagnosis/Problems Diagnosis/Problems (1) Acute heart failure Status: Acute (2) Non-STEMI (non-ST elevated myocardial infarction) Status: Acute (3) Atrial fibrillation with RVR Status: Acute GISELLA KENNEDY DO Apr 18, 2022 12:10
== END 2022-04-18 13:25 | disposition home or self-care (01) | DRG 280 ==
LOC: EDUNIT# 04:25 → ER 04:29 → ICU 06:54 → 4TH 04-15 15:57
PROVIDERS: ADMIT Internal Medicine; ATTEND Internal Medicine
PROC: 8E0ZXY6 Isolation (ICD-10-PCS; principal; 2022-04-13)
DX: I13.0 Hypertensive heart and chronic kidney disease with heart failure and stage 1 through stage 4 chronic kidney disease, or unspecified chronic kidney disease (principal); I50.23 Acute on chronic systolic (congestive) heart failure; I21.A1 Myocardial infarction type 2; J44.1 Chronic obstructive pulmonary disease with (acute) exacerbation; I48.19 Other persistent atrial fibrillation; N18.31 Chronic kidney disease, stage 3a; E78.00 Pure hypercholesterolemia, unspecified; I49.3 Ventricular premature depolarization; F41.9 Anxiety disorder, unspecified; I42.9 Cardiomyopathy, unspecified; Z86.16 Personal history of COVID-19; Z79.01 Long term (current) use of anticoagulants; Z79.82 Long term (current) use of aspirin
CPT/HCPCS: 36415; 71045; 80053; 80061; 83735; 83874; 83880; 84100; 84484; 85025; 85610; 85730; 86141; 87081; 93005; 93041; 94640; 94760; 94761

== ENCOUNTER 2022-05-12 15:09 | Inpatient (IN) | payer BC, MEDICARE ==
[~2022-05-12] VITALS: Ht 170 cm; Wt 113.0 kg
[~2022-05-12 15:09] MED LIST changes: +FURO20TA4 PO; +POTA-160 PO
[2022-05-12] MEDS ORDERED: fentaNYL INJ 100 MCG/2 ML AMP IVP ONE ×2 (15:45→18:45)
--- NOTE | 2022-05-12 15:47 | ED General ---
General Chief Complaint: Lower Extremity Stated Complaint: CELLULITIS Nursing Triage Note: PT PRESENTS TO ED VIA EMS FROM HOME WITH COMPLAINTS OF R KNEE/CALF PAIN X2 DAYS. PT INCREASED SWELLING PAIN IN THAT EXTREMITY. PT REPORTS HE TRIED TO STAND OUT OF HIS CHAIR TODAY AND FELL. STATES HE WAS UNABLE TO GET BACK UP. PT DENIES ANY INJURY FROM THE FALL. Source of Information: Patient, Caregiver Exam Limitations: No Limitations (KIRSTEN PEPPER MED STUDENT) History of Present Illness Date Seen by Provider: May 12, 2022 Time Seen by Provider: 15:40 Initial Comments Yao Verma is a 67 yo male who presented via EMS for RLE pain for the last two days. Pt has hx of Afib on OAC and recent COVID with hospitalization. Pt reports he noticed his right leg was becoming more swollen and red 2 days ago. Today he got up out of his chair, fell and couldn't get up d/t leg pain. He denies injury or LOC with fall. called EMS because she could not get pt up off floor. Pt endorses 8/10 pain when touching the RLE. Pt denies chills, but is currently shivering. Pt states he did not know it was draining anything or there were any wounds and is unsure of how long that had been going on. He denies any trauma to the leg. Pt states his Lasix were increased from 20mg to 40mg about [address] Uribe. Pt was supposed to have appt today with Dr. Kennedy, but couldn't make it d/t leg pain. Pt denies fever, SOA, cough, N/V/D, abdominal pain, FUENTES, dizziness, weakness or numbness. CBC, CMP, Lactic Acid, PT and PTT ordered. UA with culture, blood and sputum cultures collected. CXR ordered. Fentanyl given for pain. Modifying Factors: improves with Immobilization; worse with Movement Associated Systoms: Loss of Appetite (KIRSTEN PEPPER A MED STUDENT) Allergies and Home Medications Allergies Coded Allergies: No Known Drug Allergies (Unverified , 06/04/20) Patient Home Medication List Home Medication List Reviewed: Yes (AYLIN AGUILAR APRN) Albuterol Sulfate (Proair Hfa) 90 Mcg Hfa.aer.ad, 0 GM IH RTQ4HR Prescribed by: GISELLA KENNEDY on 04/07/22 1325 Aspirin (Aspirin EC) 81 Mg Tablet.dr, 81 MG PO DAILY Prescribed by: GISELLA KENNEDY on 04/07/22 1325 Diltiazem HCl (Diltiazem 24Hr ER) 120 Mg Cap.er.24h, 120 MG PO DAILY Prescribed by: GISELLA KENNEDY on 04/07/22 1325 Furosemide (Furosemide) 20 Mg Tablet, 20 MG PO DAILY Prescribed by: GISELLA KENNEDY on 04/18/22 1207 Potassium Chloride (Klor-Con 10) 10 Meq Tablet.er, 10 MEQ PO DAILY@0700 Prescribed by: GISELLA KENNEDY on 04/18/22 1207 Rivaroxaban (Xarelto Tablet) 20 Mg Tablet, 20 MG PO DAILY@1700, (Reported) Entered as Reported by: CHERYL YOUNG on 04/04/22 1349 Review of Systems Review of Systems Constitutional: chills; No fever EENTM: No blurred vision, No vision loss Respiratory: No cough, No short of breath Cardiovascular: No chest pain, No palpitations Gastrointestinal: No abdominal pain, No constipation, No diarrhea, No nausea, No vomiting Genitourinary: No dysuria, No frequency Musculoskeletal: other (RLE pain) Skin: change in color (redness of RLE) Psychiatric/Neurological: Denies Headache, Denies Numbness, Denies Paresthesia, Denies Weakness Hematologic/Lymphatic: Denies Easy Bleeding, Denies Easy Bruising Immunological/Allergic: no symptoms reported (KIRSTEN PEPPER) Past Xcwdiwk-Uqzsid-Tnkpbk Hx Patient Social History Tobacco Use?: No Smoking Status: Never a Smoker Substance use?: No Alcohol Use?: No Pt feels they are or have been: No (KIRSTEN PEPPER STUDENT) Immunizations Up To Date Tetanus Booster (TDap): Unknown First/Initial COVID19 Vaccinat: none Second COVID19 Vaccination Naldo: none Third COVID19 Vaccination Date: none (KIRSTEN PEPPER) Seasonal Allergies Seasonal Allergies: No (KIRSTEN PEPPER) Past Medical History Surgery/Hospitalization HX: discharged 04/07 from admission for COVID afib. Surgeries: Yes (Cardiac electrocardioversion) Respiratory: Yes Pneumonia Cardiac: Yes Atrial Fibrillation, High Cholesterol, Hypertension Neurological: Yes (STATES HAS A HX OF BRAIN BLEED) Stroke Genitourinary: No Gastrointestinal: No Musculoskeletal: No Endocrine: No HEENT: No Cancer: No Psychosocial: No Integumentary: No Blood Disorders: No (KIRSTEN PEPPER MED STUDENT) Family Medical History No Pertinent Family Hx (KIRSTEN PEPPER STUDENT) Physical Exam Vital Signs Vital Signs - First Documented 05/12/22 15:16 Temp 36.0 Pulse 70 Resp 18 B/P (MAP) 87/67 (74) Pulse Ox 99 (TYRESE RAVI MD) Vital Signs Capillary Refill : Less Than 3 Seconds (KIRSTEN PEPPER MED STUDENT) Height, Weight, BMI Height: '" Weight: lbs. oz. kg; 36.00 BMI Method: General Appearance: No Apparent Distress, Chronically ill HEENT: PERRL/EOMI, Pharynx Normal Neck: Full Range of Motion, Non Tender Respiratory: Chest Non Tender, Lungs Clear Cardiovascular: Regular Rate, Rhythm, No Murmur Gastrointestinal: Normal Bowel Sounds, Non Tender, Soft Extremity: Calf Tenderness (RLE exquisitely tender to palpation), Pedal Edema (RLE 2+ edema, LLE 1+) Neurologic/Psychiatric: Alert, Oriented x3, Normal Mood/Affect Skin: Other (erythema and edema of RLE up to knee with one anterior calf draining wound and surrounding excoriations with honey colored drainage) Lymphatic: No Adenopathy (KIRSTEN PEPPER MED STUDENT) Focused Exam Lactate Level 05/12/22 16:11: Lactic Acid Level 5.31*H (TYRESE RAVI MD) Time of Focused Exam: 17:00 Respiratory: Lungs Clear, No Accessory Muscle Use, No Respiratory Distress Cardiovascular: Regular Rate, Rhythm, Normal Peripheral Pulses Capillary Refill: Less Than 3 Seconds Peripheral Pulses: 1+ Radial Pulses (R), 1+ Radial Pulses (L) Skin: normal color, warm/dry, other (erythema RLE with draining wounds lat RLE; honey crusted, superficial abrasions) Lactic Acid Level Laboratory Tests Test 05/12/22 16:11 Lactic Acid Level 5.31 MMOL/L (0.50-2.00) *H (TYRESE RAVI MD) Within 3hrs of presentation: Admin fluids, Admin ABX, Blood cultures prior to ABX's, Focus exam (TYRESE RAVI MD) Progress/Results/Core Measures Suspected Sepsis SIRS Temperature: Pulse: 70 Respiratory Rate: 18 Laboratory Tests 05/12/22 16:11: White Blood Count 9.3 Blood Pressure 87 /67 Mean: 74 05/12/22 16:11: Lactic Acid Level 5.31*H Laboratory Tests 05/12/22 16:11: Platelet Count 142 05/12/22 16:46: (KIRSTEN PEPPER A MED STUDENT) SIRS Laboratory Tests 05/12/22 16:11: White Blood Count 9.3 05/12/22 16:11: Lactic Acid Level 5.31*H Laboratory Tests 05/12/22 16:11: Platelet Count 142 05/12/22 17:20: (TYRESE RAVI MD) Results/Orders Lab Results Laboratory Tests Test 05/12/22 16:11 05/12/22 17:20 Range/Units White Blood Count 9.3 4.3-11.0 10^3/uL Red Blood Count 4.35 4.30-5.52 10^6/uL Hemoglobin 13.3 13.3-17.7 g/dL Hematocrit 41 40-54 % Mean Corpuscular Volume 94 80-99 fL Mean Corpuscular Hemoglobin 31 25-34 pg Mean Corpuscular Hemoglobin Concent 32 32-36 g/dL Red Cell Distribution Width 16.5 H 10.0-14.5 % Platelet Count 142 130-400 10^3/uL Mean Platelet Volume 10.0 9.0-12.2 fL Immature Granulocyte % (Auto) 0 % Neutrophils (%) (Auto) 92 H 42-75 % Lymphocytes (%) (Auto) 3 L 12-44 % Monocytes (%) (Auto) 5 0-12 % Eosinophils (%) (Auto) 0 0-10 % Basophils (%) (Auto) 0 0-10 % Neutrophils # (Auto) 8.6 H 1.8-7.8 X 10^3 Lymphocytes # (Auto) 0.3 L 1.0-4.0 X 10^3 Monocytes # (Auto) 0.5 0.0-1.0 X 10^3 Eosinophils # (Auto) 0.0 0.0-0.3 10^3/uL Basophils # (Auto) 0.0 0.0-0.1 10^3/uL Immature Granulocyte # (Auto) 0.0 0.0-0.1 10^3/uL Lactic Acid Level 5.31 *H 0.50-2.00 MMOL/L (TYRESE RAVI MD) My Orders Orders - TYRESE RAVI MD Cbc With Automated Diff (05/12/22 15:38) Blood Culture (05/12/22 15:38) Sputum Culture (05/12/22 15:38) Urinalysis (05/12/22 15:38) Urine Culture (05/12/22 15:38) Protime With Inr (05/12/22 15:38) Partial Thromboplastin Time (05/12/22 15:38) Chest 1 View, Ap/Pa Only (05/12/22 15:38) Ed Iv/Invasive Line Start (05/12/22 15:38) Ed Iv/Invasive Line Start (05/12/22 15:38) Vital Signs Adult Sepsis Patie Q15M (05/12/22 15:38) O2 (05/12/22 15:38) Remove Rings In Anticipation O (05/12/22 15:38) Lactic Acid Analyzer (05/12/22 15:38) Fentanyl Inj (Sublimaze Injection) (05/12/22 15:45) Manual Differential (05/12/22 16:11) Comprehensive Metabolic Panel (05/12/22 16:47) Piperacillin Sodium/Tazobactam (Zosyn Vi (05/12/22 17:15) Ns Iv 1000 Ml (Sodium Chloride 0.9%) (05/12/22 17:15) Normal Saline Bolus 1,000ml (05/12/22 18:15) (TYRESE RAVI MD) Medications Given in ED Current Medications Medications Dose Ordered Sig/Scotty Route Start Time Stop Time Status Last Admin Dose Admin Fentanyl Citrate 50 mcg ONCE ONCE IVP 05/12/22 15:45 05/12/22 15:46 DC 05/12/22 16:09 50 MCG (TYRESE RAVI MD) Vital Signs/I&O 05/12/22 15:16 Temp 36.0 Pulse 70 Resp 18 B/P (MAP) 87/67 (74) Pulse Ox 99 (TYRESE RAVI MD) Vital Signs/I&O Capillary Refill : Less Than 3 Seconds (KIRSTEN PEPPER MED STUDENT) Blood Pressure Mean: 74 Progress Note : Time: 17:08 Progress Note 67yo male with complaint of RLE pain and swelling, chills and feeling bad. No current antibiotics. draining RLE for the lat 2 days, denies injury. Significant lactic acidosis. borderline BP. Meets severe sepsis criteria. Will need ICU. Zosyn ordered. Will add Vanc. He meets fluid bolus criteria for severe sepsis. Total volume 3125ml (TYRESE RAVI MD) Diagnostic Imaging Diagonstic Imaging: Xray Plain Films/CT/US/NM/MRI: chest Comments [facility], [place] NAME: RENETTAYAO [employer] [facility] REC#: [id number] PT STATUS: REG ER : 1955 PHYSICIAN: TYRESE RAVI MD ADMIT DATE: 05/12/22/ER Draft Date of Exam:05/12/22 CHEST 1 VIEW, AP/PA ONLY INDICATION: Cellulitis and sepsis. TECHNIQUE: Frontal chest obtained at 03:51 p.m. and compared to 04/17/2022. FINDINGS: There is cardiomegaly. There is central vascular congestion. There is improvement in bilateral perihilar infiltrates and basilar infiltrates compared to the previous study. There is no pneumothorax or gross pleural fluid. IMPRESSION: Cardiomegaly with central vascular congestion. Improved perihilar and basilar infiltrates compared to the prior study. Dictated on workstation # [id number] Dict: 05/12/22 1609 Trans: 05/12/22 1613 [id number] Interpreted by: ANDREA FLEMING MD Electronically signed by: (TYRESE RAVI MD) Departure Communication (Admissions) Time/Spoke to Admitting Phy: 18:[address] Kennedy (TYRESE RAVI MD) NAME: YAO VERMA [employer] REC#: [id number] PT STATUS: REG ER : 1955 PHYSICIAN: TYRESE RAVI MD ADMIT DATE: 05/12/22/ER Draft Date of Exam:05/12/22 CHEST 1 VIEW, AP/PA ONLY CLINICAL INDICATION: Patient with central line placement. EXAM: Portable chest x-ray upright view. COMPARISON: Chest x-ray dated 05/12/2022 at 1551. FINDINGS: Cardiomegaly is again seen with mild pulmonary vascular prominence centrally. There is interval development of airspace opacities involving the right perihilar region and bibasilar regions. The left costophrenic angle region is not completely imaged. There is no definite right pleural effusion. There is no pneumothorax. Right IJ central line is seen with distal portion overlying the expected region of the distal superior vena cava. There are degenerative spurs involving the thoracic spine. Loop recorder is seen overlying the chest. IMPRESSION: 1: There is interval development of airspace infiltrate involving the bibasilar regions and right perihilar region which may represent pneumonia. 2: There is cardiomegaly with pulmonary vascular congestion. Interval placement of right IJ central line, as described above. There is no pneumothorax. Dictated on workstation # [id number] Dict: 05/12/22 184 Trans: 05/12/22 184 [facility] [id number] Interpreted by: GENE WARD MD Electronically signed by: [id number] put a right-sided central line in. His current pressure is 83/64. I will start him on Levophed. Heart rate 70 atrial fibrillation. Respiratory rate is 15-20. Oxygen saturation 90% on 2 L. After his fluid bolus he has left out a right-sided infiltrate. He is received 4.5 g of Zosyn. I spoke with Dr. Kennedy will give him Zyvox as well given kidney function. We will keep him here in ICU. we put a Landry catheter in at this time, he has 275 mL of urine in it already. He received 1 L of fluids by EMS and 1 L here. There is a third/fourth L ordered but I have advised the nurse to stop this. Mullens body weight calculates based on his weight and height to 65.9 kg. 30 mL/kg fluid bolus of ideal body weight comes out to just under 2 L which she has had and has evidence of vascular congestion on xray. We will start pressors now. Spoke with Dr. Kennedy, agrees to keep him here in ICU. 1930-lactic acid improving, kidney function improving, albeit slightly. Pressure is up. I did notify Dr. Workman of consult, also notified eICU doc on- call of admission to ICU. (AYLIN AGUILAR APRN) Impression Primary Impression: Cellulitis of right leg Additional Impressions: Severe sepsis RML pneumonia Septic shock Disposition: ADMITTED INPATIENT Condition: Stable Admissions Decision to Admit Reason: Admit from ER (General) Decision to Admit/Date: May 12, 2022 Time/Decision to Admit Time: 18:00 (TYRESE RAVI MD) Departure-Patient Inst. Referrals: GISELLA KENNEDY DO (PCP/Family) Primary Care Physician Verification and Attestation of Medical Student E/M Service A medical student performed and documented this service in my presence. I reviewed and verified all information documented by the medical student and made modifications to such information, when appropriate. I personally performed the physical exam and medical decision making. Tyrees Ravi, May 12, 2022,18:02 (TYRESE RAVI MD) KIRSTEN PEPPER MED STUDENT May 12, 2022 15:47 TYRESE RAVI MD May 12, 2022 16:23 AYLIN AGUILAR APRN May 12, 2022 19:01
--- NOTE | 2022-05-12 16:13 | Diagnostic Imaging Report ---
INDICATION: Cellulitis and sepsis. TECHNIQUE: Frontal chest obtained at 03:51 p.m. and compared to 04/17/2022. FINDINGS: There is cardiomegaly. There is central vascular congestion. There is improvement in bilateral perihilar infiltrates and basilar infiltrates compared to the previous study. There is no pneumothorax or gross pleural fluid. IMPRESSION: Cardiomegaly with central vascular congestion. Improved perihilar and basilar infiltrates compared to the prior study. Dictated by: Dictated on workstation # [id number]
[2022-05-12 16:34] LABS: BASOPHILS % (AUTO) 0 % (0-10); EOSINOPHILS % (AUTO) 0 % (0-10); HEMATOCRIT 41 % (40-54); HEMOGLOBIN 13.3 g/dL (13.3-17.7); LYMPHOCYTES # (AUTO) 0.3 X 10^3 (1.0-4.0); LYMPHOCYTES % (AUTO) 3 % (12-44); MEAN CORPUSCULAR HEMOGLOBIN 31 pg (25-34); MEAN CORPUSCULAR HGB CONC 32 g/dL (32-36); MEAN CORPUSCULAR VOLUME 94 fL (80-99); MONOCYTES # (AUTO) 0.5 X 10^3 (0.0-1.0); MONOCYTES % (AUTO) 5 % (0-12); NEUTROPHILS # (AUTO) 8.6 X 10^3 (1.8-7.8); NEUTROPHILS % (AUTO) 92 % (42-75); PLATELET COUNT 142 10^3/uL (130-400); WHITE BLOOD COUNT 9.3 10^3/uL (4.3-11.0)
[2022-05-12] MEDS ORDERED: PIPERACILLIN SODIUM/TAZOBACTAM 4.5 GM in NS (IVPB) 100 ML IV ONE (17:15)
[2022-05-12] MEDS ORDERED: NS IV 1000 ML 1,000 ML IV SCH ×2 (17:15→18:15)
[2022-05-12 18:04] LABS: ALBUMIN 3.3 GM/DL (3.2-4.5)
[2022-05-12 18:05] LABS: POTASSIUM 5.9 MMOL/L (3.6-5.0)
[2022-05-12 18:06] LABS: CALCIUM 8.7 MG/DL (8.5-10.1)
[2022-05-12 18:09] LABS: BILIRUBIN,TOTAL 4.5 MG/DL (0.1-1.0)
[2022-05-12 18:11] LABS: CREATININE SERUM 2.66 MG/DL (0.60-1.30)
[2022-05-12 18:20] LABS: LYMPHOCYTES % (MANUAL) 4 %; NEUTROPHILS % (MANUAL) 92 %
[2022-05-12 18:21] LABS: BAND NEUTROPHILS 1 %; MONOCYTES % (MANUAL) 3 %; RBC MORPH NORMAL
[2022-05-12 18:30] LABS: INR 7.6 (0.8-1.4); PROTHROMBIN TIME PATIENT 64.8 SEC (12.2-14.7)
--- NOTE | 2022-05-12 18:47 | Diagnostic Imaging Report ---
CLINICAL INDICATION: Patient with central line placement. EXAM: Portable chest x-ray upright view. COMPARISON: Chest x-ray dated 05/12/2022 at 1551. FINDINGS: Cardiomegaly is again seen with mild pulmonary vascular prominence centrally. There is interval development of airspace opacities involving the right perihilar region and bibasilar regions. The left costophrenic angle region is not completely imaged. There is no definite right pleural effusion. There is no pneumothorax. Right IJ central line is seen with distal portion overlying the expected region of the distal superior vena cava. There are degenerative spurs involving the thoracic spine. Loop recorder is seen overlying the chest. IMPRESSION: 1: There is interval development of airspace infiltrate involving the bibasilar regions and right perihilar region which may represent pneumonia. 2: There is cardiomegaly with pulmonary vascular congestion. Interval placement of right IJ central line, as described above. There is no pneumothorax. Dictated by: Dictated on workstation # [id number]
[2022-05-12] MEDS ORDERED: NOREPINEPHRINE 8 MG/250 ML 250 ML IV ONE (18:48)
[2022-05-12] MEDS ORDERED: NOREPINEPHRINE 8 MG/250 ML 250 ML IV SCH (19:00)
[2022-05-12 19:10] LABS: POTASSIUM 5.2 MMOL/L (3.6-5.0)
[2022-05-12 19:12] LABS: BILIRUBIN,URINE NEGATIVE (NEGATIVE); CLARITY,URINE CLOUDY; COLOR,URINE YELLOW; GLUCOSE, URINE (UA) NEGATIVE (NEGATIVE); KETONES,URINE NEGATIVE (NEGATIVE); LEUKOCYTE ESTERASE ,URINE NEGATIVE (NEGATIVE); NITRITE,URINE NEGATIVE (NEGATIVE); PH,URINE 5.5 (5-9); PROTEIN,URINE NEGATIVE (NEGATIVE)
[2022-05-12 19:12] LABS: CALCIUM 7.5 MG/DL (8.5-10.1)
[2022-05-12 19:27] LABS: CREATININE SERUM 2.38 MG/DL (0.60-1.30)
[2022-05-12] MEDS ORDERED: LINEZOLID IVPB 300 ML IV ONE (19:30)
[2022-05-12 19:34] LABS: BACTERIA,URINE FEW /HPF; RBC,URINE 0-2 /HPF
[2022-05-12 19:35] LABS: HYALINE CASTS, URINE 0-2 /LPF
--- NOTE | 2022-05-12 19:36 | History & Physical ---
History of Present Illness HPI/Chief Complaint Chief complaint: Shock HPI: This is a 67-year-old white male clinic patient of mine who is set to be seen at the clinic this afternoon at 330 but called to cancel because he fell out of his chair in preparation of coming to the appointment and EMS was called because he could not walk. He was assessed to have severe sepsis from right leg cellulitis but after IV fluids given chest x-ray was obtained to follow-up on central line placement and it appears that he has a right lower lobe infiltrate present. Patient was given Zosyn and Zyvox empirically after pancultured. Patient received 2-1/2 L of fluid but he will need pressor therapy due to volume overload concerns from congestive heart failure and atrial fibrillation. He remains on Eliquis for stroke prophylaxis from atrial fibrillation. He had recent COVID but unable to tolerate BiPAP. Lower extremity edema had been an issue when I saw him 2 weeks ago in the office and continues to be an issue. Creatinine increased to 2.6 with normal creatinine when he left the hospital. Patient required oxygen supplementation at discharge last visit. Source: patient, family, RN/MD, old records Exam Limitations: clinical condition (Shock) Date Seen 05/12/22 Time Seen by a Provider: 18:00 Attending Physician Ally Reynolds DO PCP Admitting Physician: Attending Physician: Referring Physician Date of Admission Home Medications & Allergies Home Medications Reviewed patient Home Medication Reconciliation performed by pharmacy medication reconciliations management technician and/or nursing. Patients Allergies have been reviewed. Allergies Allergies Coded Allergies No Known Drug Allergies (Unverified06/04/20) Past Qephopn-Fckedw-Keyzek Hx Past Med/Social Hx: Reviewed Nursing Past Med/Soc Hx, Reviewed and Corrections made Patient Social History Marrital Status: Employed/Student: employed Alcohol Use: Denies Use Smoking Status: Never a Smoker Recent Foreign Travel: No Contact w/other who traveled: No Recent Hopitalizations: No Immunizations Up To Date Tetanus Booster (TDap): Unknown Seasonal Allergies Seasonal Allergies: No Past Medical History Cardiac: Atrial Fibrillation, High Cholesterol, Hypertension Neurological: Stroke History of Blood Disorders: No Family History No Pertinent Family Hx Review of Systems ROS-Unable to Obtain: Critically ill Constitutional: see HPI, malaise, weakness Physical Exam Physical Exam Vital Signs Vital Signs - First Documented 05/12/22 05/12/22 15:16 19:50 Temp 36.0 Pulse 70 Resp 18 B/P (MAP) 87/67 (74) Pulse Ox 99 O2 Delivery Room Air Capillary Refill : Less Than 3 Seconds Height, Weight, BMI Height: '" Weight: lbs. oz. kg; 36.00 BMI Method: General Appearance: Anxious, Chronically ill, Moderate Distress, Other (Brown and ashen) HEENT: PERRL/EOMI, Pharynx Normal Neck: Full Range of Motion, Normal Inspection, Non Tender, Supple Respiratory: Lungs Clear, No Accessory Muscle Use, No Respiratory Distress, Decreased Breath Sounds Cardiovascular: Regular Rate, Rhythm, Normal Peripheral Pulses Gastrointestinal: Normal Bowel Sounds, Non Tender, Soft Extremity: Calf Tenderness (RLE exquisitely tender to palpation), Pedal Edema (RLE 2+ edema, LLE 1+) Neurologic/Psychiatric: Alert, Oriented x3, Normal Mood/Affect, Disoriented, Motor Weakness (Generalized) Skin: Other (erythema and edema of RLE up to knee with one anterior calf draining wound and surrounding excoriations with honey colored drainage) Lymphatic: No Adenopathy Results Results/Procedures Labs Laboratory Tests 05/12/22 16:11 05/12/22 17:20 05/12/22 18:48 Patient resulted labs reviewed. Assessment/Plan Admission Diagnosis Assessment: Septic shock requiring pressor therapy of Levophed Acute on chronic respiratory failure Pneumonia Right lower extremity cellulitis Acute kidney injury Hyperkalemia Hyponatremia Anasarca Atrial fibrillation Recent COVID CHF history Central line required due to critical illness Elevated liver enzymes Coagulopathy due to Eliquis and acute renal failure Chronic hypoxia supplemental oxygen required since last admit Plan: Broad-spectrum antibiotics of Zosyn and Zyvox Monitor creatinine closely Cardiology and eICU consult Supportive care Prognosis guarded Patient remains critically ill Admission Status: Inpatient Order (span 2 midnights) Reason for Inpatient Admission: Septic shock Diagnosis/Problems Diagnosis/Problems (1) Septic shock Status: Acute (2) Cellulitis of right leg Status: Acute (3) RML pneumonia Status: Acute (4) History of COVID-19 Status: Acute (5) Congestive heart failure Status: Acute (6) Primary hypertension (7) Persistent atrial fibrillation (8) MACARIO (acute kidney injury) Status: Acute ALLY REYNOLDS DO May 12, 2022 19:36
[2022-05-12] MEDS ORDERED: BISACODYL 10 MG SUPP (DULCOLAX) PR PRN (20:30)
[2022-05-12] MEDS ORDERED: CALCIUM CARBONATE 500 MG (TUMS) TAB.CHEW PO PRN (20:30)
[2022-05-12] MEDS ORDERED: ONDANSETRON 4 MG/2 ML (SDV) Z0FRAN IV PRN (20:30)
[2022-05-12] MEDS ORDERED: diphenhydrAMINE 50 MG/ML INJ (BENADRYL) IVP PRN (20:30)
[2022-05-12] MEDS ORDERED: LACTULOSE SYRUP 10GM/15ML (ENULOSE) 30ML UDC PO PRN (20:30)
[2022-05-12] MEDS ORDERED: HYDROmorphone 2 MG/ML VIAL (DILAUDID) IV PRN (20:30)
[2022-05-12] MEDS ORDERED: MILK OF MAGNESIA 400 MG/5 ML 30 ML UDC PO PRN (20:30)
[2022-05-12] MEDS ORDERED: polyethylene glycoL POWDER 17 GM (MIRALAX) PACK PO PRN (20:30)
[2022-05-12] MEDS ORDERED: ONDANSETRON 4 MG (ZOFRAN) ORAL DISSOLVE TAB PO PRN (20:30)
[2022-05-12] MEDS ORDERED: NALOXONE 0.4 MG/ML 1 ML (NARCAN) VIAL IV PRN (20:30)
[2022-05-12] MEDS ORDERED: ANTACID SUSP 30 ML UDC (MYLANTA) PO PRN (20:30)
[2022-05-12] MEDS ORDERED: diphenhydrAMINE 25 MG TAB (BENADRYL) PO PRN (20:30)
[2022-05-12] MEDS ORDERED: ACETAMINOPHEN 325 MG TABLET PO PRN (20:30)
[2022-05-12] MEDS ORDERED: MELATONIN 3 MG TABLET PO PRN (20:30)
--- NOTE | 2022-05-12 20:30 | Tele-ICU Consult ---
Progress Note (Tele-ICU Physician, consultation) Available chart/ vitals / labs / Images reviewed H&P is from ER notes Patient's information available about PMH, allergy reviewed in EMR. ROS as per chart and RN report Video assessment done using teleICU camera, rest of exam as per RN Discussed with RN. Hospital course: 67 yo M admitted with septic shock, cellulitis, MACARIO. Discussed with ED provider. Zosyn, Linezolid rec'd, IVF bolus rec'd per sepsis protocol. CVC placed, pressors to maintain MAP > 65. Dr. Reynolds admitting, orders received. Cultures pending. A/P Management shock, IV abx Consider ID, surgery eval for cellulitis if severe MACARIO management Coagulopathy, no acute bleeding reported SCDs Lines: Y (Central Line Necessity Reviewed) Landry: N/A OG: N/A Nutrition: NPO Analgesia: N/A VTE Prophylaxis: SCDs Stress Ulcer Prophylaxis: N/A Plans in collaboration with bedside consultants and Primary MD. RN to reach out if any questions or concerns ASHA CROWDER MD May 12, 2022 20:30
[2022-05-12 20:54] VITALS: BP 108/64
[2022-05-12] MEDS ORDERED: LINEZOLID IVPB 300 ML IV SCH (21:00)
[2022-05-12] MEDS ORDERED: APIXABAN 5 MG (ELIQUIS) TABLET PO SCH (21:00)
[2022-05-12] MEDS ORDERED: RT-ALBUTEROL SULF 2.5 MG/3 ML PRE-MIX VIAL INH PRN (21:15)
[2022-05-12] MEDS: SENNOSIDES 8.6 MG (SENOKOT) TAB PO SCH (21:35)
[2022-05-12] MEDS: DOCUSATE SODIUM 100 MG (COLACE) CAP PO SCH (21:35)
[2022-05-12] MEDS: NS IV 1000 ML 1,000 ML IV SCH (22:03)
[2022-05-12] MEDS: PIPERACILLIN SODIUM/TAZOBACTAM 4.5 GM in NS (IVPB) 100 ML IV SCH (22:59)
[2022-05-12] MEDS: NOREPINEPHRINE 8 MG/250 ML 250 ML IV SCH (22:59)
[2022-05-13] MEDS ORDERED: NS IV 500 ML 500 ML IV PRN (01:30)
[2022-05-13 03:44] LABS: BASOPHILS % (AUTO) 0 % (0-10); EOSINOPHILS % (AUTO) 0 % (0-10); HEMATOCRIT 40 % (40-54); HEMOGLOBIN 13.4 g/dL (13.3-17.7); LYMPHOCYTES # (AUTO) 0.5 10^3/uL (1.0-4.0); LYMPHOCYTES % (AUTO) 4 % (12-44); MEAN CORPUSCULAR HEMOGLOBIN 31 pg (25-34); MEAN CORPUSCULAR HGB CONC 33 g/dL (32-36); MEAN CORPUSCULAR VOLUME 92 fL (80-99); MEAN PLATELET VOLUME 9.7 fL (9.0-12.2); MONOCYTES # (AUTO) 0.6 10^3/uL (0.0-1.0); MONOCYTES % (AUTO) 5 % (0-12); NEUTROPHILS % (AUTO) 91 % (42-75); PLATELET COUNT 152 10^3/uL (130-400); WHITE BLOOD COUNT 13.2 10^3/uL (4.3-11.0)
[2022-05-13 04:10] LABS: ALBUMIN 3.1 GM/DL (3.2-4.5); POTASSIUM 5.7 MMOL/L (3.6-5.0)
[2022-05-13 04:11] LABS: CALCIUM 8.5 MG/DL (8.5-10.1)
[2022-05-13 04:12] LABS: TOTAL PROTEIN 6.8 GM/DL (6.4-8.2)
[2022-05-13 04:14] LABS: BILIRUBIN,TOTAL 4.4 MG/DL (0.1-1.0)
[2022-05-13 04:15] LABS: PHOSPHORUS 4.3 MG/DL (2.3-4.7)
[2022-05-13 04:16] LABS: CREATININE SERUM 2.66 MG/DL (0.60-1.30)
[2022-05-13 04:19] LABS: MAGNESIUM 2.3 MG/DL (1.6-2.4)
[2022-05-13] MEDS: MAGNESIUM 1 GM/100 ML IVPB 100 ML IV SCH (04:25)
[2022-05-13] MEDS: POTASSIUM CL 10MEQ/50ML IVPB 50 ML IV SCH (04:25)
[2022-05-13] MEDS: KCL 20 MEQ TAB (K-DUR) PO SCH (04:25)
[2022-05-13] MEDS: NOREPINEPHRINE 8 MG/250 ML 250 ML IV SCH ×2 (05:44→20:20)
[2022-05-13] MEDS: PIPERACILLIN SODIUM/TAZOBACTAM 4.5 GM in NS (IVPB) 100 ML IV SCH ×3 (05:46→22:20)
[2022-05-13] MEDS: NS IV 1000 ML 1,000 ML IV SCH ×3 (05:47→21:02)
--- NOTE | 2022-05-13 08:07 | Progress Note ---
Subjective Date Seen by a Provider: May 13, 2022 Time Seen by a Provider: 10:30 Subjective/Events-last exam Much improved CVP 20 O2 2L/min will be placed to help support since he is on that amount at home Levophed still infusing Made do not intubate Labs reviewed Kidney function compromised Review of Systems General: Fatigue, Malaise Focused Exam Lactate Level 05/13/22 03:05: Lactic Acid Level 2.28*H 05/13/22 05:10: Lactic Acid Level 2.29*H 05/13/22 07:35: Time of Focused Exam: 17:00 Lactic Acid Level Laboratory Tests Test 05/13/22 05:10 05/13/22 07:35 Lactic Acid Level 2.29 MMOL/L (0.50-2.00) *H Objective Exam Last Set of Vital Signs Vital Signs Date Time Temp Pulse Resp B/P (MAP) Pulse Ox O2 Delivery O2 Flow Rate FiO2 05/13/22 08:00 68 30 106/78 (87) 94 Room Air 05/13/22 07:59 36.9 05/12/22 20:54 21 Capillary Refill : Less Than 3 Seconds I&O Intake and Output 05/13/22 00:00 Intake Total 2400 ml Output Total 475 ml Balance 1925 ml Intake Oral 0 ml IV Total 2400 ml Output Urine Total 475 ml General: Alert, Oriented X3, Cooperative, No Acute Distress Lungs: Clear to Auscultation Heart: Regular Rate Neuro: Normal Speech, Normal Tone Psych/Mental Status: Mental Status NL, Mood NL Results Lab Laboratory Tests 05/12/22 16:11: White Blood Count 9.3, Red Blood Count 4.35, Hemoglobin 13.3, Hematocrit 41, Mean Corpuscular Volume 94, Mean Corpuscular Hemoglobin 31, Mean Corpuscular Hemoglobin Concent 32, Red Cell Distribution Width 16.5H, Platelet Count 142, Mean Platelet Volume 10.0, Immature Granulocyte % (Auto) 0, Neutrophils (%) (Auto) 92H, Lymphocytes (%) (Auto) 3L, Monocytes (%) (Auto) 5, Eosinophils (%) (Auto) 0, Basophils (%) (Auto) 0, Neutrophils # (Auto) 8.6H, Lymphocytes # (Auto) 0.3L, Monocytes # (Auto) 0.5, Eosinophils # (Auto) 0.0, Basophils # (Auto) 0.0, Immature Granulocyte # (Auto) 0.0, Neutrophils % (Manual) 92, Lymphocytes % (Manual) 4, Monocytes % (Manual) 3, Band Neutrophils 1, Blood Morphology Comment NORMAL, Prothrombin Time 64.8*H, INR Comment 7.6*H, Activated Partial Thromboplast Time 49H, Lactic Acid Level 5.31*H 05/12/22 17:20: Sodium Level 129L, Potassium Level 5.9H, Chloride Level 97L, Carbon Dioxide Level 16L, Anion Gap 16H, Blood Urea Nitrogen 77H, Creatinine 2.66H, Estimat Glomerular Filtration Rate 25, BUN/Creatinine Ratio 29, Glucose Level 110H, Calcium Level 8.7, Corrected Calcium 9.3, Total Bilirubin 4.5H, Aspartate Amino Transf (AST/SGOT) 79H, Alanine Aminotransferase (ALT/SGPT) 123H, Alkaline Phosphatase 86, Total Protein 7.0, Albumin 3.3 05/12/22 18:48: Sodium Level 132L, Potassium Level 5.2H, Chloride Level 102, Carbon Dioxide Level 16L, Anion Gap 14, Blood Urea Nitrogen 70H, Creatinine 2.38H, Estimat Glomerular Filtration Rate 29, BUN/Creatinine Ratio 29, Glucose Level 94, Calcium Level 7.5L 05/12/22 18:53: Lactic Acid Level 2.85*H, Urine Color YELLOW, Urine Clarity CLOUDY, Urine pH 5.5, Urine Specific [place] 1.015L, Urine Protein NEGATIVE, Urine Glucose (UA) NEGATIVE, Urine Ketones NEGATIVE, Urine Nitrite NEGATIVE, Urine Bilirubin NEGATIVE, Urine Urobilinogen 1.0, Urine Leukocyte Esterase NEGATIVE, Urine RBC (Auto) 1+H, Urine RBC 0-2, Urine WBC NONE, Urine Squamous Epithelial Cells NONE, Urine Crystals NONE, Urine Bacteria FEWH, Urine Casts PRESENT, Urine Hyaline Casts 0-2H, Urine Mucus NEGATIVE, Urine Culture Indicated NO 05/12/22 21:00: Lactic Acid Level 2.80*H 05/13/22 00:06: Lactic Acid Level 2.53*H 05/13/22 03:05: Lactic Acid Level 2.28*H 05/13/22 03:35: White Blood Count 13.2H, Red Blood Count 4.38, Hemoglobin 13.4, Hematocrit 40, Mean Corpuscular Volume 92, Mean Corpuscular Hemoglobin 31, Mean Corpuscular Hemoglobin Concent 33, Red Cell Distribution Width 16.2H, Platelet Count 152, Mean Platelet Volume 9.7, Immature Granulocyte % (Auto) 0, Neutrophils (%) (Auto) 91H, Lymphocytes (%) (Auto) 4L, Monocytes (%) (Auto) 5, Eosinophils (%) (Auto) 0, Basophils (%) (Auto) 0, Neutrophils # (Auto) 12.0H, Lymphocytes # (Au to) 0.5L, Monocytes # (Auto) 0.6, Eosinophils # (Auto) 0.0, Basophils # (Auto) 0.0, Immature Granulocyte # (Auto) 0.0, Sodium Level 134L, Potassium Level 5.7H, Chloride Level 100, Carbon Dioxide Level 17L, Anion Gap 17H, Blood Urea Nitrogen 71H, Creatinine 2.66H, Estimat Glomerular Filtration Rate 25, BUN/Creatinine Ratio 27, Glucose Level 124H, Calcium Level 8.5, Corrected Calcium 9.2, Phosphorus Level 4.3, Magnesium Level 2.3, Total Bilirubin 4.4H, Aspartate Amino Transf (AST/SGOT) 60H, Alanine Aminotransferase (ALT/SGPT) 103H, Alkaline [place] sphatase 79, Total Protein 6.8, Albumin 3.1L 05/13/22 05:10: Lactic Acid Level 2.29*H 05/13/22 07:35: Assessment/Plan Assessment/Plan Assess & Plan/Chief Complaint Assessment: Septic shock requiring pressor therapy of Levophed Acute on chronic respiratory failure Pneumonia Right lower extremity cellulitis Acute kidney injury Hyperkalemia Hyponatremia Anasarca Atrial fibrillation Recent COVID CHF history Central line required due to critical illness Elevated liver enzymes Coagulopathy due to Eliquis and acute renal failure Chronic hypoxia supplemental oxygen required since last admit Plan: Broad-spectrum antibiotics of Zosyn and Zyvox Monitor creatinine closely Cardiology and eICU consult Supportive care Prognosis guarded Patient remains critically ill Diagnosis/Problems Diagnosis/Problems (1) Septic shock Status: Acute (2) Cellulitis of right leg Status: Acute (3) RML pneumonia Status: Acute (4) History of COVID-19 Status: Acute (5) Congestive heart failure Status: Acute (6) Primary hypertension (7) Persistent atrial fibrillation (8) MACARIO (acute kidney injury) Status: Acute Clinical Quality Measures DVT/VTE Risk/Contraindication: Contraindications-Mechi: Other *list below* Other: cellulitis legs GISELLA KENNEDY DO May 13, 2022 08:07
[2022-05-13 08:31] LABS: INR 5.5 (0.8-1.4); PROTHROMBIN TIME PATIENT 50.1 SEC (12.2-14.7)
--- NOTE | 2022-05-13 08:36 | Diagnostic Imaging Report ---
EXAMINATION: Chest 1 view HISTORY: Dyspnea. COMPARISON: 05/12/2022. FINDINGS: Stable right-sided internal jugular central line. There is continued cardiomegaly with decrease in central pulmonary vascular congestion. Persistent hazy and patchy opacities are seen in the lung bases. No large pleural effusion or pneumothorax. IMPRESSION: 1. Central pulmonary vascular congestion. Persistent edema and/or atelectasis is seen in the lung bases. 2. Stable right-sided internal jugular central line. Dictated by: Dictated on workstation # [id number]
[2022-05-13] MEDS: LINEZOLID IVPB 300 ML IV SCH ×2 (08:58→21:02)
[2022-05-13] MEDS: SENNOSIDES 8.6 MG (SENOKOT) TAB PO SCH ×2 (09:06→21:02)
[2022-05-13] MEDS: DOCUSATE SODIUM 100 MG (COLACE) CAP PO SCH ×2 (09:06→21:02)
--- NOTE | 2022-05-13 10:24 | Tele-ICU Progress Note ---
Subjective Date Seen by a Provider: May 13, 2022 Subjective/Events-last exam (Tele-ICU Physician , Progress Note ) Available chart/ vitals / labs / Images reviewed Video assessment done using teleICU camera, rest of exam as per RN Discussed with RN Events overnight : Afebrile hemodynamically stable Respiratory - ra I/O = pos 2 L Drips: Pressors- levo Consultants: noa Hospital course: (05/12) 67/M admitted s/p fall, septic shock, RLE cellulitis/pain, unable to ambulate. CHF vs PNA--Recent COVID on 04/07. ARF. Coagulopathic (05/13) Renals slightly worse again w/hyperkalemia, remains coagulopathic A/P Shock , septic ( ? cardiac component ) - cotn pressors and hydration - check CVP - lactate not improving - ? will recheck along with BNP abd CPK Cellulitis , RLL PNA - 05/12 Zosy and zyvox - will check CPK and lactate - ? any suspicios for nec fash- as per bedside MD exam MACARIO with hyperkalemia - no change despite agressive hydration , cont hydration - recheck labs - consider bicarb gtt top add if worsenign - was on Lasix LEVELMAN - on hold A fib - rate controlled - on Eliquis LEVELMAN - ON HOLD Coagulopathy - ( on Eliquis LEVELMAN - no active bleeding Recent COVID 03/2022 - on O2 at home h/o SAH in 2019 , s/p syncope and fall off a ladder Lines : R IJ 05/12 , (Central Line Necessity Reviewed) Landry: + OG: Nutrition: Analgesia: Anxiety/ delirium VTE Prophylaxis: INR elevated Stress Ulcer Prophylaxis: na Plans in collaboration with bedside consultants and IM MDs. Discussed with RN to reach out if any questions or concerns A total of 35 minutes of critical care time was devoted to this patient today, required to treat and/or prevent further deterioration of critical care condition ( as above ) . Sepsis Event Evaluation Height, Weight, BMI Height: '" Weight: lbs. oz. kg; 39.13 BMI Method: Focused Exam Lactate Level 05/13/22 03:05: Lactic Acid Level 2.28*H 05/13/22 05:10: Lactic Acid Level 2.29*H 05/13/22 07:35: Lactic Acid Level 2.15*H Time of Focused Exam: 17:00 Lactic Acid Level Laboratory Tests Test 05/13/22 07:35 Lactic Acid Level 2.15 MMOL/L (0.50-2.00) *H Exam Exam Patient acknowledged, consented, and participated in this virtual visit which was conducted using real time audio/video Vital Signs Date Time Temp Pulse Resp B/P (MAP) Pulse Ox O2 Delivery O2 Flow Rate FiO2 05/13/22 10:00 109 18 102/69 (80) 92 Room Air 05/13/22 09:00 85 25 97/75 (82) 94 Room Air 05/13/22 08:00 68 30 106/78 (87) 94 Room Air 05/13/22 08:00 93 Room Air 05/13/22 07:59 36.9 05/13/22 07:00 67 05/13/22 07:00 69 12 109/87 (94) 91 Room Air 05/13/22 06:00 71 23 108/71 (83) 93 Room Air 05/13/22 05:44 82 89/66 05/13/22 05:07 83 31 103/87 (94) 94 Room Air 05/13/22 04:24 36.0 05/13/22 04:00 93 Room Air 05/13/22 04:00 59 23 106/77 (83) 93 Room Air 05/13/22 03:00 69 24 105/76 (85) 94 Room Air 05/13/22 02:42 64 116/66 05/13/22 02:00 73 21 120/83 (101) 95 Room Air 05/13/22 01:00 67 05/13/22 01:00 67 67 108/71 (85) 94 Room Air 05/13/22 00:14 36.3 05/13/22 00:00 63 21 111/82 (93) 92 Room Air 05/12/22 23:59 92 Room Air 05/12/22 23:00 64 22 111/91 (100) 92 Room Air 05/12/22 22:00 73 20 107/84 (92) 90 Room Air 05/12/22 21:44 94 Room Air 05/12/22 21:00 64 23 109/67 (79) 95 Room Air 05/12/22 20:54 36.8 64 96 21 05/12/22 20:45 56 19 108/88 (98) 93 Room Air 05/12/22 20:30 67 19 111/62 (71) 95 Room Air 05/12/22 20:15 70 17 106/76 (91) 93 Room Air 05/12/22 20:15 106/76 05/12/22 20:09 69 05/12/22 20:01 36.8 05/12/22 20:01 74 17 85/67 (73) 92 Room Air 05/12/22 20:00 92 Room Air 05/12/22 20:00 85/67 05/12/22 19:50 36.8 64 14 108/62 96 Room Air 05/12/22 18:57 70 83/64 05/12/22 15:16 36.0 70 18 87/67 (74) 99 I & O 05/13/22 07:00 Intake Total 2750 ml Output Total 1000 ml Balance 1750 ml Height & Weight Height: '" Weight: lbs. oz. kg; 39.13 BMI Method: General Appearance: Anxious, Chronically ill, Moderate Distress, Other (Brown and ashen) HEENT: PERRL/EOMI, Pharynx Normal Neck: Full Range of Motion, Normal Inspection, Non Tender, Supple Respiratory: Lungs Clear, No Accessory Muscle Use, No Respiratory Distress, Decreased Breath Sounds Cardiovascular: Regular Rate, Rhythm, Normal Peripheral Pulses Capillary Refill: Less Than 3 Seconds Peripheral Pulses: 1+ Radial Pulses (R), 1+ Radial Pulses (L) Extremity: Calf Tenderness (RLE exquisitely tender to palpation), Pedal Edema (RLE 2+ edema, LLE 1+) Neurologic/Psychiatric: Alert, Oriented x3, Normal Mood/Affect, Disoriented, Motor Weakness (Generalized) Skin: Other (erythema and edema of RLE up to knee with one anterior calf draining wound and surrounding excoriations with honey colored drainage) Lymphatic: No Adenopathy Results Lab Laboratory Tests 05/12/22 16:11 05/12/22 17:20 05/12/22 18:48 05/13/22 03:35 Assessment/Plan Assessment/Plan 1 LAZARO SINGH MD May 13, 2022 10:24
[2022-05-13 11:00] LABS: POTASSIUM 5.3 MMOL/L (3.6-5.0)
[2022-05-13 11:01] LABS: CALCIUM 8.3 MG/DL (8.5-10.1)
[2022-05-13 11:06] LABS: CREATININE SERUM 2.43 MG/DL (0.60-1.30)
--- NOTE | 2022-05-13 11:41 | Consultation-Cardiology ---
HPI-Cardiology Cardiology Consultation: Date of Consultation 05/13/22 Time Seen by a Provider: 10:45 Date of Admission Attending Physician Ally Reynolds DO Admitting Physician Admitting Physician: Ally Reynolds DO Attending Physician: Ally Reynolds DO Consulting Physician JOSEE PEACOCK MD, MA, FACP, FACC, FSCAI, CCDS HPI: Chief Complaint: R leg pain 67 yo man admitted to Dr Reynolds on 05/12/22 with R leg pain and swelling. He has been diagnosed with R leg cellulitis and sepsis and is being treated. We have been asked to see him because of a h/o A Fib and CHF. He does not report cp or palp or syncope or shortness of breath at rest. He does have gen malaise. No n/v/d Review of Systems-Cardiology Review of Systems Constitutional: As described under HPI Eyes: No vision change Ears/Nose/Throat: No ear discharge, No nasal drainage, No recent hearing loss Respiratory: As described under HPI Cardiovascular: As described under HPI Gastrointestinal: As described under HPI Genitourinary: No dysuria, No hematuria Musculoskeletal: As describe under HPI Skin: other (Redness and swelling of the R lower leg and foot) Psychiatric/Neurological: No seizure, No focal weakness, No syncope Hematologic: No bleeding abnormalities FJT-Muylhh-Uhllny Hx Patient Social History Marrital Status: Employed/Student: employed Smoking Status: Never a Smoker Have you traveled recently?: No Alcohol Use?: No Pt feels they are or have been: No Immunizations Up To Date Tetanus Booster (TDap): Unknown Past Medical History PMH As described under Assessment. Family Medical History Family Medical History: Does not report fam h/o early CAD Allergies and Home Medications Allergies Coded Allergies: No Known Drug Allergies (Unverified , 06/04/20) Patient Home Medication List Home Medication List Reviewed: Yes Albuterol Sulfate (Proair Hfa) 90 Mcg Hfa.aer.ad, 0 GM IH RTQ4HR Prescribed by: ALLY REYNOLDS on 04/07/22 1325 Aspirin (Aspirin EC) 81 Mg Tablet.dr, 81 MG PO DAILY Prescribed by: ALLY REYNOLDS on 04/07/22 1325 Diltiazem HCl (Diltiazem 24Hr ER) 120 Mg Cap.er.24h, 120 MG PO DAILY Prescribed by: ALLY REYNOLDS on 04/07/22 1325 Furosemide (Furosemide) 20 Mg Tablet, 20 MG PO DAILY Prescribed by: ALLY REYNOLDS on 04/18/22 1207 Potassium Chloride (Klor-Con 10) 10 Meq Tablet.er, 10 MEQ PO DAILY@0700 Prescribed by: ALLY REYNOLDS on 04/18/22 1207 Rivaroxaban (Xarelto Tablet) 20 Mg Tablet, 20 MG PO DAILY@1700, (Reported) Entered as Reported by: CHERYL YOUNG on 04/04/22 1349 Physical Exam-Cardiology Physical Exam Vital Signs/I&O 05/12/22 05/13/22 05/13/22 05/13/22 23:59 00:00 00:14 01:00 Temp 36.3 Pulse 63 67 Resp 21 67 B/P (MAP) 111/82 (93) 108/71 (85) Pulse Ox 92 92 94 O2 Delivery Room Air Room Air Room Air 05/13/22 05/13/22 05/13/22 05/13/22 01:00 02:00 02:42 03:00 Pulse 67 73 64 69 Resp 21 24 B/P (MAP) 120/83 (101) 116/66 105/76 (85) Pulse Ox 95 94 O2 Delivery Room Air Room Air 05/13/22 05/13/22 05/13/22 05/13/22 04:00 04:00 04:24 05:07 Temp 36.0 Pulse 59 83 Resp 23 31 B/P (MAP) 106/77 (83) 103/87 (94) Pulse Ox 93 93 94 O2 Delivery Room Air Room Air Room Air 05/13/22 05/13/22 05/13/22 05/13/22 05:44 06:00 07:00 07:00 Pulse 82 71 69 67 Resp 23 12 B/P (MAP) 89/66 108/71 (83) 109/87 (94) Pulse Ox 93 91 O2 Delivery Room Air Room Air 05/13/22 05/13/22 05/13/22 05/13/22 07:59 08:00 08:00 09:00 Temp 36.9 Pulse 68 85 Resp 30 25 B/P (MAP) 106/78 (87) 97/75 (82) Pulse Ox 93 94 94 O2 Delivery Room Air Room Air Room Air 05/13/22 05/13/22 10:00 11:00 Pulse 109 109 Resp 18 29 B/P (MAP) 102/69 (80) 101/74 (83) Pulse Ox 92 95 O2 Delivery Room Air Room Air 05/13/22 00:00 Intake Total 2400 ml Output Total 475 ml Balance 1925 ml Capillary Refill : Less Than 3 Seconds Constitutional: AAO x 3, well-developed, well-nourished HEENT: EOMI, hard of hearing Neck: carotid pulses are 2 + bilaterally, with good upstrokes Respiratory: No accessory muscle use; other (fair to good, bilat air entry that is diminished at the bases) Cardiovascular: irregularly irregular, S1 and S2, systolic murmur (soft REJI at card base) Gastrointestinal: No tender; soft; No guarding, No rebound; audible bowel sounds Extremities: other (R leg swelling and tenderness and increase temperature and redness (more marked on the lower leg and the foot)); No clubbing, No cyanosis Neurologic/Psychiatric: other (moves all limbs equally) Skin: normal color, warm/dry, other (erythema RLE with draining wounds lat RLE; honey crusted, superficial abrasions) Data Review Labs Laboratory Tests 05/12/22 16:11: White Blood Count 9.3, Red Blood Count 4.35, Hemoglobin 13.3, Hematocrit 41, Mean Corpuscular Volume 94, Mean Corpuscular Hemoglobin 31, Mean Corpuscular Hemoglobin Concent 32, Red Cell Distribution Width 16.5H, Platelet Count 142, Mean Platelet Volume 10.0, Immature Granulocyte % (Auto) 0, Neutrophils (%) (Auto) 92H, Lymphocytes (%) (Auto) 3L, Monocytes (%) (Auto) 5, Eosinophils (%) (Auto) 0, Basophils (%) (Auto) 0, Neutrophils # (Auto) 8.6H, Lymphocytes # (Auto) 0.3L, Monocytes # (Auto) 0.5, Eosinophils # (Auto) 0.0, Basophils # (Auto) 0.0, Immature Granulocyte # (Auto) 0.0, Neutrophils % (Manual) 92, Lymphocytes % (Manual) 4, Monocytes % (Manual) 3, Band Neutrophils 1, Blood Morphology Comment NORMAL, Prothrombin Time 64.8*H, INR Comment 7.6*H, Activated Partial Thromboplast Time 49H, Lactic Acid Level 5.31*H 05/12/22 17:20: Sodium Level 129L, Potassium Level 5.9H, Chloride Level 97L, Carbon Dioxide Level 16L, Anion Gap 16H, Blood Urea Nitrogen 77H, Creatinine 2.66H, Estimat Glomerular Filtration Rate 25, BUN/Creatinine Ratio 29, Glucose Level 110H, Calcium Level 8.7, Corrected Calcium 9.3, Total Bilirubin 4.5H, Aspartate Amino Transf (AST/SGOT) 79H, Alanine Aminotransferase (ALT/SGPT) 123H, Alkaline Phosphatase 86, Total Protein 7.0, Albumin 3.3 05/12/22 18:48: Sodium Level 132L, Potassium Level 5.2H, Chloride Level 102, Carbon Dioxide Level 16L, Anion Gap 14, Blood Urea Nitrogen 70H, Creatinine 2.38H, Estimat Glomerular Filtration Rate 29, BUN/Creatinine Ratio 29, Glucose Level 94, Calcium Level 7.5L 05/12/22 18:53: Lactic Acid Level 2.85*H, Urine Color YELLOW, Urine Clarity CLOUDY, Urine pH 5.5, Urine Specific [place] 1.015L, Urine Protein NEGATIVE, Urine Glucose (UA) NEGATIVE, Urine Ketones NEGATIVE, Urine Nitrite NEGATIVE, Urine Bilirubin NEGATIVE, Urine Urobilinogen 1.0, Urine Leukocyte Esterase NEGATIVE, Urine RBC (Auto) 1+H, Urine RBC 0-2, Urine WBC NONE, Urine Squamous Epithelial Cells NONE, Urine Crystals NONE, Urine Bacteria FEWH, Urine Casts PRESENT, Urine Hyaline Casts 0-2H, Urine Mucus NEGATIVE, Urine Culture Indicated NO 05/12/22 21:00: Lactic Acid Level 2.80*H 05/13/22 00:06: Lactic Acid Level 2.53*H 05/13/22 03:05: Lactic Acid Level 2.28*H 05/13/22 03:35: White Blood Count 13.2H, Red Blood Count 4.38, Hemoglobin 13.4, Hematocrit 40, Mean Corpuscular Volume 92, Mean Corpuscular Hemoglobin 31, Mean Corpuscular Hemoglobin Concent 33, Red Cell Distribution Width 16.2H, Platelet Count 152, Mean Platelet Volume 9.7, Immature Granulocyte % (Auto) 0, Neutrophils (%) (Auto) 91H, Lymphocytes (%) (Auto) 4L, Monocytes (%) (Auto) 5, Eosinophils (%) (Auto) 0, Basophils (%) (Auto) 0, Neutrophils # (Auto) 12.0H, Lymphocytes # (Auto) 0.5L, Monocytes # (Auto) 0.6, Eosinophils # (Auto) 0.0, Basophils # (Auto) 0.0, Immature Granulocyte # (Auto) 0.0, Sodium Level 134L, Potassium Level 5.7H, Chloride Level 100, Carbon Dioxide Level 17L, Anion Gap 17H, Blood Urea Nitrogen 71H, Creatinine 2.66H, Estimat Glomerular Filtration Rate 25, BUN/Creatinine Ratio 27, Glucose Level 124H, Calcium Level 8.5, Corrected Calcium 9.2, Phosphorus Level 4.3, Magnesium Level 2.3, Total Bilirubin 4.4H, Aspartate Amino Transf (AST/SGOT) 60H, Alanine Aminotransferase (ALT/SGPT) 103H, Alkaline Phosphatase 79, Total Protein 6.8, Albumin 3.1L 05/13/22 05:10: Lactic Acid Level 2.29*H 05/13/22 07:35: Lactic Acid Level 2.15*H, Prothrombin Time 50.1*H, INR Comment 5.5*H, Procalcitonin 2.79H 05/13/22 08:14: Bedside Blood Gas pH (LAB) 7.414H, Bedside Blood Gas pCO2 (LAB) 31.4L, Bedside Blood Gas pO2 (LAB) 68L, Bedside Blood Gas HCO3 (LAB) 20.1L, POC Blood Gas Total CO2 Calc 21L, Bedside Bl Gas O2 Saturation (Calc) 94L, Bedside Arterial Blood Base Excess -4L 05/13/22 10:35: Lactic Acid Level 2.08*H, Sodium Level 134L, Potassium Level 5.3H, Chloride Lev el 100, Carbon Dioxide Level 19L, Anion Gap 15H, Blood Urea Nitrogen 64H, Creatinine 2.43H, Estimat Glomerular Filtration Rate 28, BUN/Creatinine Ratio 26, Glucose Level 152H, Calcium Level 8.3L, Total Creatine Kinase 49, B-Type Natriuretic Peptide 1887.7H Laboratory Tests 05/12/22 16:11 05/12/22 17:20 05/12/22 18:48 05/13/22 03:35 05/13/22 10:35 A/P-Cardiology Assessment/Admission Diagnosis R leg cellulitis/fasciitis, managed by Dr Reynolds Septic shock Chronic A Fib - first diagnosed in May 2020, recurrent after cardioversion (apparently has since been in it) - Stress test done at on June 08, 2020 reported no significant ischemia or infarction; echocardiogram was normal - chronic stroke prophylaxis with Xarelto that is currently being held (apparently because of elevated INR) Mild, acute, diastolic CHF Ac renal failure, managed by Dr Reynolds (Cr 1.18 on 04/18/22 and 2.66 on 05/12/22) - Hyperkalemia has improved (5.99 at admission, 5.3 on 05/13/22) ?hepatic dysfunction (elevate transaminases at presentation) Paroxysmal atrial fibrillation, diagnosed in May 2020 after sustaining a fall. Underwent KERRY with cardioversion on 07/28/2020. Discussion and Recomendations * Severely ill patient * If oral anticoag is being held only because of elevated INR, we recommend that it be resumed because INR is known to be significantly and nonspecifically increased by rivaroxaban (it is not a suitable marker to study the effect of rivaroxaban). If it is being held because surgery for fasciitis is a consideration or if hepatic dysfunction is an issue, then please resume OLIVER after these issues have been addressed (this is to be managed and decided by patient's attending Dr Reynolds) * Diltiazem and/or digoxin for vent rate control * Monitor labs * Echo * Further cardiac recs to be based on patient's hosp course Clinical Quality Measures DVT/VTE Risk/Contraindication: Contraindications-Mechi: Other *list below* Other: cellulitis legs JOSEE PEACOCK MD FACP [facility] May 13, 2022 11:41
--- NOTE | 2022-05-13 12:03 | Consultation - Surgery ---
ZHANNA VEGA 05/13/22 1203: History of Present Illness History of Present Illness Patient Consulted On(frederic/time) 05/13/22 12:00 Date Seen by Provider: May 13, 2022 Time Seen by Provider: 12:15 History of Present Illness 67yo Male admitted on 05/12/2022 with CC of right leg cellulitis. Patient was sitting at home yesterday when he fell out of his chair and hit his leg, after this happened he called EMS because he could not walk. He denied having his leg trapped/compressed for an extended period of time. His right leg is tender to all palpation, is erythematous from mid-calf down throughout his entire right foot. He denies any pain in his left leg. Both legs are equally edematous. Allergies and Home Medications Allergies Coded Allergies: No Known Drug Allergies (Unverified , 06/04/20) Patient Home Medication List Albuterol Sulfate (Proair Hfa) 90 Mcg Hfa.aer.ad, 0 GM IH RTQ4HR Prescribed by: GISELLA KENNEDY on 04/07/22 1325 Aspirin (Aspirin EC) 81 Mg Tablet.dr, 81 MG PO DAILY Prescribed by: GISELLA KENNEDY on 04/07/22 1325 Diltiazem HCl (Diltiazem 24Hr ER) 120 Mg Cap.er.24h, 120 MG PO DAILY Prescribed by: GISELLA KENNEDY on 04/07/22 1325 Furosemide (Furosemide) 20 Mg Tablet, 20 MG PO DAILY Prescribed by: GISELLA KENNEDY on 04/18/22 1207 Potassium Chloride (Klor-Con 10) 10 Meq Tablet.er, 10 MEQ PO DAILY@0700 Prescribed by: GISELLA KENNEDY on 04/18/22 1207 Rivaroxaban (Xarelto Tablet) 20 Mg Tablet, 20 MG PO DAILY@1700, (Reported) Entered as Reported by: CHERYL YOUNG on 04/04/22 1349 Past Ayplovy-Msdvif-Frrhxa Hx Patient Social History Smoking Status: Never a Smoker Recent Hopitalizations: No Alcohol Use?: No Have you traveled recently?: No Immunizations Up To Date Tetanus Booster (TDap): Unknown Seasonal Allergies Seasonal Allergies: No Surgeries History of Surgeries: Yes (Cardiac electrocardioversion) Respiratory History of Respiratory Disorde: Yes Respiratory Disorders: Pneumonia Cardiovascular History of Cardiac Disorders: Yes Cardiac Disorders: Atrial Fibrillation, High Cholesterol, Hypertension Neurological History of Neurological Disord: Yes (STATES HAS A HX OF BRAIN BLEED) Neurological Disorders: Stroke Genitourinary History of Genitourinary Disor: No Gastrointestinal History of Gastrointestinal Di: No Musculoskeletal History of Musculoskeletal Dis: No Endocrine History of Endocrine Disorders: No HEENT History of HEENT Disorders: No Cancer History of Cancer: No Psychosocial History of Psychiatric Problem: No Integumentary History of Skin or Integumenta: No Blood Transfusions History of Blood Disorders: No Family Medical History Significant Family History: Other Conditions/Hx (Patient denies family history of HTN, cancer, and diabetes) Review of Systems-General Constitutional: No fever Respiratory: No short of breath Cardiovascular: No chest pain; Hx of Intervention Gastrointestinal: No abdominal pain, No nausea, No vomiting Physical Exam-General Problems Physical Exam Vital Signs Vital Signs - First Documented 05/12/22 05/12/22 05/12/22 15:16 19:50 20:54 Temp 36.0 Pulse 70 Resp 18 B/P (MAP) 87/67 (74) Pulse Ox 99 O2 Delivery Room Air FiO2 21 Capillary Refill : Less Than 3 Seconds General Appearance: mild distress, obese Respiratory: no respiratory distress, no accessory muscle use, rhonchi (right lung base) Cardiovascular: tachycardia, irregularly irregular Peripheral Pulses: 1+ Dorsalis Pedis (R); 2+ Left Dors-Pedis (L), 2+ Radial Pulses (R), 2+ Radial Pulses (L) Gastrointestinal: non tender, soft Extremities: calf tenderness (right side only, no tenderness on left), infla mmation, pedal edema, slow capillary refill, swelling, other (right leg erythema from mid-calf into foot. Right foot markedly edematous. Entire calf and foot very tender to all palpation. Sensation intact b/l in LE) Data Review Labs Laboratory Tests 05/12/22 16:11: White Blood Count 9.3, Red Blood Count 4.35, Hemoglobin 13.3, Hematocrit 41, Mean Corpuscular Volume 94, Mean Corpuscular Hemoglobin 31, Mean Corpuscular Hemoglobin Concent 32, Red Cell Distribution Width 16.5H, Platelet Count 142, Mean Platelet Volume 10.0, Immature Granulocyte % (Auto) 0, Neutrophils (%) (Auto) 92H, Lymphocytes (%) (Auto) 3L, Monocytes (%) (Auto) 5, Eosinophils (%) (Auto) 0, Basophils (%) (Auto) 0, Neutrophils # (Auto) 8.6H, Lymphocytes # (Auto) 0.3L, Monocytes # (Auto) 0.5, Eosinophils # (Auto) 0.0, Basophils # (Auto) 0.0, Immature Granulocyte # (Auto) 0.0, Neutrophils % (Manual) 92, Lymphocytes % (Manual) 4, Monocytes % (Manual) 3, Band Neutrophils 1, Blood Morphology Comment NORMAL, Prothrombin Time 64.8*H, INR Comment 7.6*H, Activated Partial Thromboplast Time 49H, Lactic Acid Level 5.31*H 05/12/22 17:20: Sodium Level 129L, Potassium Level 5.9H, Chloride Level 97L, Carbon Dioxide Level 16L, Anion Gap 16H, Blood Urea Nitrogen 77H, Creatinine 2.66H, Estimat Glomerular Filtration Rate 25, BUN/Creatinine Ratio 29, Glucose Level 110H, Calcium Level 8.7, Corrected Calcium 9.3, Total Bilirubin 4.5H, Aspartate Amino Transf (AST/SGOT) 79H, Alanine Aminotransferase (ALT/SGPT) 123H, Alkaline Phosphatase 86, Total Protein 7.0, Albumin 3.3 05/12/22 18:48: Sodium Level 132L, Potassium Level 5.2H, Chloride Level 102, Carbon Dioxide Level 16L, Anion Gap 14, Blood Urea Nitrogen 70H, Creatinine 2.38H, Estimat Glomerular Filtration Rate 29, BUN/Creatinine Ratio 29, Glucose Level 94, Calcium Level 7.5L 05/12/22 18:53: Lactic Acid Level 2.85*H, Urine Color YELLOW, Urine Clarity CLOUDY, Urine pH 5.5, Urine Specific [place] 1.015L, Urine Protein NEGATIVE, Urine Glucose (UA) NEGATIVE, Urine Ketones NEGATIVE, Urine Nitrite NEGATIVE, Urine Bilirubin NEGATIVE, Urine Urobilinogen 1.0, Urine Leukocyte Esterase NEGATIVE, Urine RBC (Auto) 1+H, Urine RBC 0-2, Urine WBC NONE, Urine Squamous Epithelial Cells NONE, Urine Crystals NONE, Urine Bacteria FEWH, Urine Casts PRESENT, Urine Hyaline Casts 0-2H, Urine Mucus NEGATIVE, Urine Culture Indicated NO 05/12/22 21:00: Lactic Acid Level 2.80*H 05/13/22 00:06: Lactic Acid Level 2.53*H 05/13/22 03:05: Lactic Acid Level 2.28*H 05/13/22 03:35: White Blood Count 13.2H, Red Blood Count 4.38, Hemoglobin 13.4, Hematocrit 40, Mean Corpuscular Volume 92, Mean Corpuscular Hemoglobin 31, Mean Corpuscular Hemoglobin Concent 33, Red Cell Distribution Width 16.2H, Platelet Count 152, Mean Platelet Volume 9.7, Immature Granulocyte % (Auto) 0, Neutrophils (%) (Auto) 91H, Lymphocytes (%) (Auto) 4L, Monocytes (%) (Auto) 5, Eosinophils (%) (Auto) 0, Basophils (%) (Auto) 0, Neutrophils # (Auto) 12.0H, Lymphocytes # (Auto) 0.5L, Monocytes # (Auto) 0.6, Eosinophils # (Auto) 0.0, Basophils # (Auto) 0.0, Immature Granulocyte # (Auto) 0.0, Sodium Level 134L, Potassium Level 5.7H, Chloride Level 100, Carbon Dioxide Level 17L, Anion Gap 17H, Blood Urea Nitrogen 71H, Creatinine 2.66H, Estimat Glomerular Filtration Rate 25, BUN/Creatinine Ratio 27, Glucose Level 124H, Calcium Level 8.5, Corrected Calcium 9.2, Phosphorus Level 4.3, Magnesium Level 2.3, Total Bilirubin 4.4H, As partate Amino Transf (AST/SGOT) 60H, Alanine Aminotransferase (ALT/SGPT) 103H, Alkaline Phosphatase 79, Total Protein 6.8, Albumin 3.1L 05/13/22 05:10: Lactic Acid Level 2.29*H 05/13/22 07:35: Lactic Acid Level 2.15*H, Prothrombin Time 50.1*H, INR Comment 5.5*H, Procalcitonin 2.79H 05/13/22 08:14: Bedside Blood Gas pH (LAB) 7.414H, Bedside Blood Gas pCO2 (LAB) 31.4L, Bedside Blood Gas pO2 (LAB) 68L, Bedside Blood Gas HCO3 (LAB) 20.1L, POC Blood Gas Total CO2 Calc 21L, Bedside Bl Gas O2 Saturation (Calc) 94L, Bedside Arterial Blood Base Excess -4L 05/13/22 10:35: Lactic Acid Level 2.08*H, Sodium Level 134L, Potassium Level 5.3H, Chloride Level 100, Carbon Dioxide Level 19L, Anion Gap 15H, Blood Urea Nitrogen 64H, Creatinine 2.43H, Estimat Glomerular Filtration Rate 28, BUN/Creatinine Ratio 26, Glucose Level 152H, Calcium Level 8.3L, Total Creatine Kinase 49, B-Type Natriuretic Peptide 1887.7H Assessment/Plan Assessment/Plan Assessment/Plan Right leg cellulitis Patient does not need surgical intervention. The fluid leaking from the right leg is not purulent and is likely a result of marked edema in the right LE. The right leg is more erythematous than the left but both are the same size and have equal edema. Monitor white count with AM labs and continue on IV linezolid and zosyn Clinical Quality Measures DVT/VTE Risk/Contraindication: Contraindications-Mechi: Other *list below* Other: cellulitis legs MERRITTSARAHMARIAN DO 05/13/22 1304: History of Present Illness History of Present Illness Time Seen by Provider: 10:14 History of Present Illness Surgery asked to consult regarding erythema and edema. HPI per ED: Yao Verma is a 67 yo male who presented via EMS for RLE pain for the last two days. Pt has hx of Afib on OAC and recent COVID with hospitalization. Pt reports he noticed his right leg was becoming more swollen and red 2 days ago. Today he got up out of his chair, fell and couldn't get up d/t leg pain. He denies injury or LOC with fall. called EMS because she could not get pt up off floor. Pt endorses 8/10 pain when touching the RLE. Pt denies chills, but is currently shivering. Pt states he did not know it was draining anything or there were any wounds and is unsure of how long that had been going on. He denies any trauma to the leg. Pt states his Lasix were increased from 20mg to 40mg about [address] Uribe. Pt was supposed to have appt today with Dr. Kennedy, but couldn't make it d/t leg pain. Pt denies fever, SOA, cough, N/V/D, abdominal pain, FUENTES, dizziness, weakness or numbness. When I saw pt he was lying in bed in the ICU, appeared comfortable. He does complain about right leg pain. Pain when touched is 10 out of 10. Allergies and Home Medications Allergies Coded Allergies: No Known Drug Allergies (Unverified , 06/04/20) Patient Home Medication List Home Medication List Reviewed: Yes Albuterol Sulfate (Proair Hfa) 90 Mcg Hfa.aer.ad, 0 GM IH RTQ4HR Prescribed by: GISELLA KENNEDY on 04/07/22 1325 Aspirin (Aspirin EC) 81 Mg Tablet.dr, 81 MG PO DAILY Prescribed by: GISELLA KENNEDY on 04/07/22 1325 Diltiazem HCl (Diltiazem 24Hr ER) 120 Mg Cap.er.24h, 120 MG PO DAILY Prescribed by: GISELLA KENNEDY on 04/07/22 1325 Furosemide (Furosemide) 20 Mg Tablet, 20 MG PO DAILY Prescribed by: GISELLA KENNEDY on 04/18/22 1207 Potassium Chloride (Klor-Con 10) 10 Meq Tablet.er, 10 MEQ PO DAILY@0700 Prescribed by: GISELLA KENNEDY on 04/18/22 1207 Rivaroxaban (Xarelto Tablet) 20 Mg Tablet, 20 MG PO DAILY@1700, (Reported) Entered as Reported by: CHERYL YOUNG on 04/04/22 1349 Past Igypxdh-Eaepny-Pvwlbh Hx Patient Social History Smoking Status: Never a Smoker Alcohol Use?: No Surgeries History of Surgeries: Yes (Cardioversion) Respiratory History of Respiratory Disorde: Yes Respiratory Disorders: Pneumonia Cardiovascular History of Cardiac Disorders: Yes Cardiac Disorders: Atrial Fibrillation, Chronic Edema/Swelling, High Cholesterol, Hypertension Neurological History of Neurological Disord: Yes Neurological Disorders: Stroke, TIA Genitourinary History of Genitourinary Disor: No Gastrointestinal History of Gastrointestinal Di: No Musculoskeletal History of Musculoskeletal Dis: No Endocrine History of Endocrine Disorders: No HEENT History of HEENT Disorders: No Cancer History of Cancer: No Family Medical History Significant Family History: Other Conditions/Hx (Patient denies family history of HTN, cancer, and diabetes) Review of Systems-General Constitutional: fever, weakness EENTM: No mouth pain, No epistaxis Respiratory: No cough, No short of breath Cardiovascular: No chest pain; Hx of Intervention Gastrointestinal: No abdominal pain, No nausea, No vomiting Genitourinary: No incontinence Musculoskeletal: joint pain, joint swelling, muscle pain, muscle stiffness Skin: No change in hair/nails; lesions Physical Exam-General Problems Physical Exam General Appearance: mild distress, obese Eyes: Bilateral Eye PERRL, Bilateral Eye EOMI HEENT: pharynx normal; No scleral icterus (R), No scleral icterus (L) Respiratory: no respiratory distress, no accessory muscle use, rhonchi (right lung base) Cardiovascular: tachycardia, irregularly irregular Gastrointestinal: non tender, soft Extremities: calf tenderness (right side only, no tenderness on left), inflammation, pedal edema (+3), slow capillary refill, swelling, other (right leg erythema from mid-calf into foot. Right foot markedly edematous. Entire calf and foot very tender to all palpation. Sensation intact b/l in LE) Assessment/Plan Assessment/Plan Assessment/Plan Right leg cellulitis Patient does not need surgical intervention. The fluid leaking from the right leg is not purulent and is likely a result of marked edema in the right LE. The right leg is more erythematous than the left but both are the same size and have equal edema. Monitor white count with AM labs and continue on IV linezolid and zosyn. Lasix may help, will watch leg. Supervisory-Addendum Brief Verification & Attestation Participated in pt care: history, MDM, physical Personally performed: exam, history, MDM, supervision of care Care discussed with: Medical Student Procedures: n/a Verification and Attestation of Medical Student E/M Service A medical student performed and documented this service. I then reviewed and verified all information documented by the medical student and made modifications to such information, when appropriate. I personally performed a physical exam, medical decision making and then discussed any differences between the notes and made revisions as necessary to create one note. Marian Medley , 05/13/22 , 13:22 ZHANNA VEGA May 13, 2022 12:03 MARIAN MEDLEY DO May 13, 2022 13:04
[2022-05-14 03:30] LABS: HEMOGLOBIN 12.5 g/dL (13.3-17.7)
[2022-05-14 03:32] LABS: BASOPHILS % (AUTO) 0 % (0-10); EOSINOPHILS % (AUTO) 0 % (0-10); HEMATOCRIT 38 % (40-54); LYMPHOCYTES # (AUTO) 0.6 10^3/uL (1.0-4.0); LYMPHOCYTES % (AUTO) 5 % (12-44); MEAN CORPUSCULAR HEMOGLOBIN 31 pg (25-34); MEAN CORPUSCULAR HGB CONC 33 g/dL (32-36); MEAN CORPUSCULAR VOLUME 94 fL (80-99); MONOCYTES # (AUTO) 0.7 10^3/uL (0.0-1.0); MONOCYTES % (AUTO) 6 % (0-12); NEUTROPHILS # (AUTO) 10.5 10^3/uL (1.8-7.8); NEUTROPHILS % (AUTO) 89 % (42-75); PLATELET COUNT 107 10^3/uL (130-400); WHITE BLOOD COUNT 11.9 10^3/uL (4.3-11.0)
[2022-05-14 03:34] LABS: ALBUMIN 2.9 GM/DL (3.2-4.5); POTASSIUM 4.8 MMOL/L (3.6-5.0)
[2022-05-14 03:35] LABS: CALCIUM 8.3 MG/DL (8.5-10.1)
[2022-05-14 03:37] LABS: TOTAL PROTEIN 6.4 GM/DL (6.4-8.2)
[2022-05-14 03:38] LABS: BILIRUBIN,TOTAL 3.1 MG/DL (0.1-1.0)
[2022-05-14 03:40] LABS: CREATININE SERUM 2.17 MG/DL (0.60-1.30); PHOSPHORUS 3.8 MG/DL (2.3-4.7)
[2022-05-14 03:43] LABS: MAGNESIUM 2.5 MG/DL (1.6-2.4)
[2022-05-14] MEDS: NS IV 1000 ML 1,000 ML IV SCH ×3 (04:30→20:14)
[2022-05-14] MEDS: PIPERACILLIN SODIUM/TAZOBACTAM 4.5 GM in NS (IVPB) 100 ML IV SCH ×3 (06:24→21:45)
--- NOTE | 2022-05-14 06:46 | Progress Note ---
Subjective Date Seen by a Provider: May 14, 2022 Time Seen by a Provider: 11:00 Subjective/Events-last exam Patient much improved Still on low-dose Levophed at 0.04 mcg Improved creatinine Supportive care continues Still in ICU IV antibiotics maintain Review of Systems General: Fatigue, Malaise Focused Exam Lactate Level 05/13/22 05:10: Lactic Acid Level 2.29*H 05/13/22 07:35: Lactic Acid Level 2.15*H 05/13/22 10:35: Lactic Acid Level 2.08*H Time of Focused Exam: 17:00 Objective Exam Last Set of Vital Signs Vital Signs Date Time Temp Pulse Resp B/P (MAP) Pulse Ox O2 Delivery O2 Flow Rate FiO2 05/14/22 06:00 122 19 95/73 (80) 96 Nasal Cannula 2.00 05/14/22 00:00 36.8 05/12/22 20:54 21 Capillary Refill : Less Than 3 Seconds I&O Intake and Output 05/14/22 00:00 Intake Total 3998.19 ml Output Total 2025 ml Balance 1973.19 ml Intake Oral 535 ml IV Total 3463.19 ml Output Urine Total 2025 ml General: Alert, Oriented X3, Cooperative, No Acute Distress Lungs: Clear to Auscultation, Normal Air Movement Heart: Normal S1, Normal S2, No Murmurs, Other (Irregular) Neuro: Normal Gait, Normal Speech, Strength at 5/5 X4 Ext, Normal Tone Psych/Mental Status: Mental Status NL, Mood NL Results Lab Laboratory Tests 05/13/22 07:35: Prothrombin Time 50.1*H, INR Comment 5.5*H, Lactic Acid Level 2.15*H, Procal citonin 2.79H 05/13/22 08:14: Bedside Blood Gas pH (LAB) 7.414H, Bedside Blood Gas pCO2 (LAB) 31.4L, Bedside Blood Gas pO2 (LAB) 68L, Bedside Blood Gas HCO3 (LAB) 20.1L, POC Blood Gas Total CO2 Calc 21L, Bedside Bl Gas O2 Saturation (Calc) 94L, Bedside Arterial Blood Base Excess -4L 05/13/22 10:35: Lactic Acid Level 2.08*H, Sodium Level 134L, Potassium Level 5.3H, Chloride Level 100, Carbon Dioxide Level 19L, Anion Gap 15H, Blood Urea Nitrogen 64H, Creatinine 2.43H, Estimat Glomerular Filtration Rate 28, BUN/Creatinine Ratio 26, Glucose Level 152H, Calcium Level 8.3L, Total Creatine Kinase 49, B-Type Natriuretic Peptide 1887.7H 05/14/22 03:15: Sodium Level 137, Potassium Level 4.8, Chloride Level 104, Carbon Dioxide Level 19L, Anion Gap 14, Blood Urea Nitrogen 56H, Creatinine 2.17H, Estimat Glomerular Filtration Rate 32, BUN/Creatinine Ratio 26, Glucose Level 151H, Calcium Level 8.3L, White Blood Count 11.9H, Red Blood Count 4.07L, Hemoglobin 12.5L, Hematocrit 38L, Mean Corpuscular Volume 94, Mean Corpuscular Hemoglobin 31, Mean Corpuscular Hemoglobin Concent 33, Red Cell Distribution Width 16.5H, Platelet Count 107L, Mean Platelet Volume 10.0, Immature Granulocyte % (Auto) 1, Neutrophils (%) (Auto) 89H, Lymphocytes (%) (Auto) 5L, Monocytes (%) (Auto) 6, Eosinophils (%) (Auto) 0, Basophils (%) (Auto) 0, Neutrophils # (Auto) 10.5H, Lymphocytes # (Auto) 0.6L, Monocytes # (Auto) 0.7, Eosinophils # (Auto) 0.0, Basophils # (Auto) 0.0, Immature Granulocyte # (Auto) 0.1, Percent Immature Platelet Fraction 1.4, Corrected Calcium 9.2, Phosphorus Level 3.8, Magnesium Level 2.5H, Total Bilirubin 3.1H, Aspartate Amino Transf (AST/SGOT) 36H, Alanine Aminotransferase (ALT/SGPT) 74H, Alkaline Phosphatase 68, Total Protein 6.4, Albumin 2.9L Microbiology 05/12/22 Blood Culture - Preliminary, Resulted No growth Assessment/Plan Assessment/Plan Assess & Plan/Chief Complaint Assessment: Septic shock requiring pressor therapy of Levophed Acute on chronic respiratory failure Pneumonia Right lower extremity cellulitis Acute kidney injury Hyperkalemia Hyponatremia Anasarca Atrial fibrillation Recent COVID CHF history Central line required due to critical illness Elevated liver enzymes Coagulopathy due to Eliquis and acute renal failure Chronic hypoxia supplemental oxygen required since last admit Plan: Broad-spectrum antibiotics of Zosyn and Zyvox Monitor creatinine closely Cardiology and eICU consult Supportive care Prognosis guarded Patient remains critically ill Diagnosis/Problems Diagnosis/Problems (1) Septic shock Status: Acute (2) Cellulitis of right leg Status: Acute (3) RML pneumonia Status: Acute (4) History of COVID-19 Status: Acute (5) Congestive heart failure Status: Acute (6) Primary hypertension (7) Persistent atrial fibrillation (8) MACARIO (acute kidney injury) Status: Acute Clinical Quality Measures DVT/VTE Risk/Contraindication: Contraindications-Mechi: Other *list below* Other: cellulitis legs GISELLA KENNEDY DO May 14, 2022 06:46
[2022-05-14] MEDS: POTASSIUM CL 10MEQ/50ML IVPB 50 ML IV SCH (06:58)
[2022-05-14] MEDS: MAGNESIUM 1 GM/100 ML IVPB 100 ML IV SCH (06:58)
[2022-05-14] MEDS: KCL 20 MEQ TAB (K-DUR) PO SCH (06:59)
[2022-05-14 07:40] LABS: ABG BASE EXCESS -2.4 MMOL/L (-2.5-2.5); ABG OXYGEN SATURATION 100 % (94-100); ABG PCO2 41 MMHG (35-45); ABG PH 7.36 (7.37-7.43); ABG PO2 107 MMHG (79-93); ABG TCO2 23.5 MMOL/L (21.0-31.0)
[2022-05-14 07:44] LABS: ALLENS TEST YES-POS; INSPIRED O2 2L; PATIENT TEMP 36.8; VENTILATOR NO
--- NOTE | 2022-05-14 07:46 | Tele-ICU Progress Note ---
Progress Note video andrewns completed 67 y/o male on rivaroxaban for a fib presented with RLE cellulitis and sepsis Started on zosyn and linezoiid . Required levophed for hypotennsion OAC being held, but cardiology on consult along with general surgery for the cellulitis PE: very comfortable and conversant in bed Pulse 120-140, irregularly irregular. PLAN: as per cardiology and general surgery Focused Exam Lactate Level 05/13/22 05:10: Lactic Acid Level 2.29*H 05/13/22 07:35: Lactic Acid Level 2.15*H 05/13/22 10:35: Lactic Acid Level 2.08*H Height, Weight, BMI Height: '" Weight: lbs. oz. kg; 39.13 BMI Method: Time of Focused Exam: 17:00 Labs Laboratory Tests 05/13/22 10:35 05/14/22 03:15 Results Results/Procedures Labs Laboratory Tests 05/12/22 16:11 05/12/22 17:20 05/12/22 18:48 05/13/22 03:35 05/13/22 10:35 05/14/22 03:15 Patient resulted labs reviewed. Results Labs Labs Laboratory Tests 05/13/22 08:14: Bedside Blood Gas pH (LAB) 7.414H, Bedside Blood Gas pCO2 (LAB) 31.4L, Bedside Blood Gas pO2 (LAB) 68L, Bedside Blood Gas HCO3 (LAB) 20.1L, POC Blood Gas Total CO2 Calc 21L, Bedside Bl Gas O2 Saturation (Calc) 94L, Bedside Arterial Blood Base Excess -4L 05/13/22 10:35: Sodium Level 134L, Potassium Level 5.3H, Chloride Level 100, Carbon Dioxide Level 19L, Anion Gap 15H, Blood Urea Nitrogen 64H, Creatinine 2.43H, Estimat Glomerular Filtration Rate 28, BUN/Creatinine Ratio 26, Glucose Level 152H, Lactic Acid Level 2.08*H, Calcium Level 8.3L, Total Creatine Kinase 49, B-Type Natriuretic Peptide 1887.7H 05/14/22 03:15: Sodium Level 137, Potassium Level 4.8, Chloride Level 104, Carbon Dioxide Level 19L, Anion Gap 14, Blood Urea Nitrogen 56H, Creatinine 2.17H, Estimat Glomerular Filtration Rate 32, BUN/Creatinine Ratio 26, Glucose Level 151H, Calcium Level 8.3L, White Blood Count 11.9H, Red Blood Count 4.07L, Hemoglobin 12.5L, Hematocrit 38L, Mean Corpuscular Volume 94, Mean Corpuscular Hemoglobin 31, Mean Corpuscular Hemoglobin Concent 33, Red Cell Distribution Width 16.5H, Platelet Count 107L, Mean Platelet Volume 10.0, Immature Granulocyte % (Auto) 1, Neutrophils (%) (Auto) 89H, Lymphocytes (%) (Auto) 5L, Monocytes (%) (Auto) 6, Eosinophils (%) (Auto) 0, Basophils (%) (Auto) 0, Neutrophils # (Auto) 10.5H, L ymphocytes # (Auto) 0.6L, Monocytes # (Auto) 0.7, Eosinophils # (Auto) 0.0, Basophils # (Auto) 0.0, Immature Granulocyte # (Auto) 0.1, Percent Immature Platelet Fraction 1.4, Corrected Calcium 9.2, Phosphorus Level 3.8, Magnesium Level 2.5H, Total Bilirubin 3.1H, Aspartate Amino Transf (AST/SGOT) 36H, Alanine Aminotransferase (ALT/SGPT) 74H, Alkaline Phosphatase 68, Total Protein 6.4, Albumin 2.9L 05/14/22 07:36: Blood Gas Puncture Site R RAD, Blood Gas Patient Temperature 36.8, Arterial Blood pH 7.36L, Arterial Blood Partial Pressure CO2 41, Arterial Blood Partial Pressure O2 107H, Arterial Blood HCO3 22L, Arterial Blood Total CO2 23.5, Arterial Blood Oxygen Saturation 100, Arterial Blood Base Excess -2.4, Manas Test YES-POS, Blood Gas Ventilator Setting NO, Blood Gas Inspired Oxygen 2L Microbiology 05/12/22 Blood Culture - Preliminary, Resulted No growth OZZY SINGH MD May 14, 2022 07:46
--- NOTE | 2022-05-14 07:53 | Diagnostic Imaging Report ---
HISTORY: Dyspnea TECHNIQUE: Frontal view of the chest COMPARISON: 05/13/2022 FINDINGS: There is cardiomegaly with central vascular congestion. There are mild bibasilar airspace opacities. Aeration is moderately improved compared to the prior exam. There is no pleural effusion or pneumothorax. A playground monitor device is noted. The right central line appears stable. IMPRESSION: 1. Central and basilar airspace opacities, likely due to edema with mild cardiomegaly. Overall, aeration is improved compared to the prior exam. Dictated by: Dictated on workstation # [id number]
[2022-05-14] MEDS: LINEZOLID IVPB 300 ML IV SCH ×2 (08:10→20:16)
[2022-05-14] MEDS: NOREPINEPHRINE 8 MG/250 ML 250 ML IV SCH ×2 (08:55→21:46)
[2022-05-14] MEDS: SENNOSIDES 8.6 MG (SENOKOT) TAB PO SCH ×2 (08:56→20:15)
[2022-05-14] MEDS: DOCUSATE SODIUM 100 MG (COLACE) CAP PO SCH ×2 (08:56→20:15)
--- NOTE | 2022-05-14 10:41 | Progress Note - Surgery ---
ZHANNA VEGA 05/14/22 1041: Subjective Date Seen by a Provider: May 14, 2022 Time Seen by a Provider: 09:15 Subjective/Events-last exam Patient is feeling much better today. Right leg pain is 5 out of 10 and much improved. Still has sullivan in, urine appears to have sediment in it. Erythema of the right calf has improved, dorsum of right foot still with marked erythma and edema. Left leg still edematous but denies pain. Review of Systems General: No Chills, No Night Sweats Pulmonary: No Dyspnea Cardiovascular: No: Chest Pain Gastrointestinal: No: Nausea, Vomiting, Abdominal Pain Genitourinary: Dysuria (pain from catheter) Musculoskeletal: leg pain (right leg) Focused Exam Lactate Level 05/13/22 05:10: Lactic Acid Level 2.29*H 05/13/22 07:35: Lactic Acid Level 2.15*H 05/13/22 10:35: Lactic Acid Level 2.08*H Time of Focused Exam: 17:00 Objective Exam Vital Signs Date Time Temp Pulse Resp B/P (MAP) Pulse Ox O2 Delivery O2 Flow Rate FiO2 05/14/22 10:00 133 23 97/63 (74) 98 Nasal Cannula 2.00 05/14/22 09:00 134 17 105/81 (89) 95 Nasal Cannula 2.00 05/14/22 08:00 109 27 102/75 (84) 96 Nasal Cannula 2.00 05/14/22 07:57 36.1 05/14/22 07:37 98 Nasal Cannula 2.00 05/14/22 07:00 131 27 90/74 (79) 96 Nasal Cannula 2.00 05/14/22 07:00 108 05/14/22 06:00 122 19 95/73 (80) 96 Nasal Cannula 2.00 05/14/22 05:00 110 21 92/70 (77) 96 Nasal Cannula 2.00 05/14/22 04:00 107 20 90/79 (83) 97 Nasal Cannula 2.00 05/14/22 04:00 96 Nasal Cannula 2.00 05/14/22 03:00 107 20 93/76 (82) 95 Nasal Cannula 2.00 05/14/22 02:00 109 18 94/83 (87) 97 Nasal Cannula 2.00 05/14/22 01:00 96 21 100/72 (81) 96 Nasal Cannula 2.00 05/14/22 00:00 111 17 98/81 (87) 96 Nasal Cannula 2.00 05/14/22 00:00 36.8 2.00 05/14/22 00:00 96 Nasal Cannula 2.00 05/13/22 23:00 122 81/66 (71) 05/13/22 21:15 87 18 77/65 (69) 96 05/13/22 21:00 93 17 90/66 (72) 05/13/22 20:45 95 18 100/80 (85) 05/13/22 20:30 117 18 93/83 (88) 05/13/22 20:20 113 89/66 05/13/22 20:15 67 16 89/66 (71) 05/13/22 20:00 36.0 102 17 99/68 (73) 05/13/22 20:00 96 Nasal Cannula 2.00 05/13/22 19:45 103 17 101/81 (90) 96 05/13/22 19:30 116 18 86/72 (79) 95 05/13/22 19:15 117 17 94/70 (79) 95 05/13/22 19:00 114 05/13/22 19:00 112 22 103/62 (73) 05/13/22 18:00 113 19 114/82 (93) 98 Room Air 05/13/22 17:00 112 21 117/81 (93) 91 Room Air 05/13/22 16:17 96 Nasal Cannula 2.00 05/13/22 16:00 100 21 97/72 (80) 98 Room Air 05/13/22 15:00 100 22 105/86 (92) 98 Room Air 05/13/22 14:00 96 12 108/88 (95) 98 Room Air 05/13/22 13:00 112 23 106/89 (95) 98 Room Air 05/13/22 12:40 96 05/13/22 12:35 35.8 05/13/22 12:22 98 Nasal Cannula 2.00 05/13/22 12:00 103 26 92/68 (76) 97 Room Air 05/13/22 11:00 109 29 101/74 (83) 95 Room Air I & O 05/14/22 07:00 Intake Total 5000.03 ml Output Total 2300 ml Balance 2700.03 ml Capillary Refill : Less Than 3 Seconds General Appearance: No Apparent Distress, Chronically ill, Obese Respiratory: No Accessory Muscle Use, No Respiratory Distress, Decreased Breath Sounds (bilateral bases) Cardiovascular: No Murmur, Irregularly Irregular Peripheral Pulses: 2+ Dorsalis Pedis (R), 2+ Left Dors-Pedis (L), 2+ Radial Pulses (R), 2+ Radial Pulses (L) Gastrointestinal: non tender, soft Extremity: Calf Tenderness (right calf, better than yesterday), Pedal Edema (3+ b/l) Neurologic/Psychiatric: Alert, Oriented x3 Skin: Other (erythema and edema of RLE up to knee with one anterior calf draining wound and surrounding excoriations with honey colored drainage) Results Lab Laboratory Tests 05/14/22 03:15: White Blood Count 11.9H, Red Blood Count 4.07L, Hemoglobin 12.5L, Hematocrit 38L , Mean Corpuscular Volume 94, Mean Corpuscular Hemoglobin 31, Mean Corpuscular Hemoglobin Concent 33, Red Cell Distribution Width 16.5H, Platelet Count 107L, Mean Platelet Volume 10.0, Immature Granulocyte % (Auto) 1, Neutrophils (%) (Auto) 89H, Lymphocytes (%) (Auto) 5L, Monocytes (%) (Auto) 6, Eosinophils (%) (Auto) 0, Basophils (%) (Auto) 0, Neutrophils # (Auto) 10.5H, Lymphocytes # (Auto) 0.6L, Monocytes # (Auto) 0.7, Eosinophils # (Auto) 0.0, Basophils # (Auto) 0.0, Immature Granulocyte # (Auto) 0.1, Percent Immature Platelet Fraction 1.4, Sodium Level 137, Potassium Level 4.8, Chloride Level 104, Carbon Dioxide Level 19L, Anion Gap 14, Blood Urea Nitrogen 56H, Creatinine 2.17H, Estimat Glomerular Filtration Rate 32, BUN/Creatinine Ratio 26, Glucose Level 151H, Calcium Level 8.3L, Corrected Calcium 9.2, Phosphorus Level 3.8, Magnesium Level 2.5H, Total Bilirubin 3.1H, Aspartate Amino Transf (AST/SGOT) 36H, Alanine Aminotransferase (ALT/SGPT) 74H, Alkaline Phosphatase 68, Total Protein 6.4, Albumin 2.9L 05/14/22 07:36: Blood Gas Puncture Site R RAD, Blood Gas Patient Temperature 36.8, Arterial Blood pH 7.36L, Arterial Blood Partial Pressure CO2 41, Arterial Blood Partial Pressure O2 107H, Arterial Blood HCO3 22L, Arterial Blood Total CO2 23.5, Arterial Blood Oxygen Saturation 100, Arterial Blood Base Excess -2.4, Manas Test YES-POS, Blood Gas Ventilator Setting NO, Blood Gas Inspired Oxygen 2L Microbiology 05/12/22 Urine Culture - Final, Complete NO GROWTH 05/12/22 Blood Culture - Preliminary, Resulted No growth 05/12/22 Gram Stain - Final, Resulted 05/12/22 Wound Culture - Preliminary, Resulted Gram Negative Troy Staphylococcus aureus Assessment/Plan Assessment/Plan Assessment/Plan Right leg cellulitis Patient does not need surgical intervention at this time. The fluid leaking from the right leg is not purulent and is likely a result of marked edema in the right LE. The right leg is more erythematous than the left but both are the same size and have equal edema. Monitor white count with AM labs and continue on IV linezolid and zosyn. Continue to watch right LE. Clinical Quality Measures DVT/VTE Risk/Contraindication: Contraindications-Mechi: Other *list below* Other: cellulitis legs MERRITTSARAHMARIAN B DO 05/14/22 1852: Subjective Time Seen by a Provider: 12:17 Subjective/Events-last exam Pt seen and examined, no changes and pain slightly better Review of Systems General: No Chills, No Night Sweats; Fatigue Pulmonary: No Dyspnea Cardiovascular: No: Chest Pain Gastrointestinal: No: Nausea, Vomiting, Abdominal Pain Genitourinary: Dysuria (pain from catheter) Musculoskeletal: leg pain (right leg) Objective Exam General Appearance: No Apparent Distress, Chronically ill, Obese Respiratory: No Accessory Muscle Use, No Respiratory Distress, Decreased Breath Sounds (bilateral bases) Cardiovascular: No Murmur, Irregularly Irregular Gastrointestinal: non tender, soft Extremity: Calf Tenderness (right calf, better than yesterday), Pedal Edema (3+ b/l) Assessment/Plan Assessment/Plan Assessment/Plan Right leg cellulitis Patient does not need surgical intervention at this time. The fluid leaking from the right leg is not purulent and is likely a result of marked edema in the right LE. The right leg is more erythematous than the left but both are the same size and have equal edema. Monitor white count with AM labs and continue on IV linezolid and zosyn. Continue to watch right LE. Supervisory-Addendum Brief Verification & Attestation Participated in pt care: history, MDM, physical Personally performed: exam, history, MDM, supervision of care Care discussed with: Medical Student Procedures: n/a Verification and Attestation of Medical Student E/M Service A medical student performed and documented this service. I then reviewed and verified all information documented by the medical student and made modifications to such information, when appropriate. I personally performed a physical exam, medical decision making and then discussed any differences be tween the notes and made revisions as necessary to create one note. Marian Medley , 05/14/22 , 18:51 ZHANNA VEGA May 14, 2022 10:41 MARIAN MEDLEY DO May 14, 2022 18:52
[2022-05-14] MEDS: DIGOXIN 0.25 MG (LANOXIN) TAB PO SCH (11:26)
--- NOTE | 2022-05-14 12:20 | Progress Note - Cardiology ---
Cardiology SOAP Progress Note Subjective: Continues with marked R leg pain Denies cp or palp or syncope Gen malaise and weakness No n/v Objective: I&O/Vital Signs 05/14/22 05/14/22 05/14/22 05/14/22 01:00 02:00 03:00 04:00 Pulse 96 109 107 Resp 18 20 B/P (MAP) 100/72 (81) 94/83 (87) 93/76 (82) Pulse Ox 96 97 95 96 O2 Delivery Nasal Cannula Nasal Cannula Nasal Cannula Nasal Cannula O2 Flow Rate 2.00 2.00 2.00 2.00 05/14/22 05/14/22 05/14/22 05/14/22 04:00 05:00 06:00 07:00 Pulse 107 110 122 108 Resp B/P (MAP) 90/79 (83) 92/70 (77) 95/73 (80) Pulse Ox 97 96 96 O2 Delivery Nasal Cannula Nasal Cannula Nasal Cannula O2 Flow Rate 2.00 2.00 2.00 05/14/22 05/14/22 05/14/22 05/14/22 07:00 07:37 07:57 08:00 Temp 36.1 Pulse 131 109 Resp 27 27 B/P (MAP) 90/74 (79) 102/75 (84) Pulse Ox 96 98 96 O2 Delivery Nasal Cannula Nasal Cannula Nasal Cannula O2 Flow Rate 2.00 2.00 2.00 05/14/22 05/14/22 05/14/22 05/14/22 09:00 10:00 11:00 12:00 Pulse 134 133 125 140 Resp 17 19 B/P (MAP) 105/81 (89) 97/63 (74) 104/84 (91) 108/65 (79) Pulse Ox 95 98 96 97 O2 Delivery Nasal Cannula Nasal Cannula Nasal Cannula Nasal Cannula O2 Flow Rate 2.00 2.00 2.00 2.00 05/13/22 23:59 Intake Total 2128.19 ml Output Total 1150 ml Balance 978.19 ml Constitutional: AAO x 3, well-developed, well-nourished Respiratory: No accessory muscle use; other (fair to good, bilat air entry that is diminished at the bases) Cardiovascular: irregularly irregular, S1 and S2, systolic murmur (soft REJI at card base) Gastrointestional: No tender; soft; No guarding, No rebound; audible bowel sounds Extremities: other (R leg swelling and tenderness and increase temperature and redness (more marked on the lower leg and the foot)); No clubbing, No cyanosis Neurologic/Psychiatric: other (moves all limbs equally) Skin: normal color, warm/dry, other (erythema RLE with draining wounds lat RLE; honey crusted, superficial abrasions) Results/Procedures: Labs Laboratory Tests 05/14/22 03:15: White Blood Count 11.9H, Red Blood Count 4.07L, Hemoglobin 12.5L, Hematocrit 38L , Mean Corpuscular Volume 94, Mean Corpuscular Hemoglobin 31, Mean Corpuscular Hemoglobin Concent 33, Red Cell Distribution Width 16.5H, Platelet Count 107L, Mean Platelet Volume 10.0, Immature Granulocyte % (Auto) 1, Neutrophils (%) (Auto) 89H, Lymphocytes (%) (Auto) 5L, Monocytes (%) (Auto) 6, Eosinophils (%) (Auto) 0, Basophils (%) (Auto) 0, Neutrophils # (Auto) 10.5H, Lymphocytes # (Auto) 0.6L, Monocytes # (Auto) 0.7, Eosinophils # (Auto) 0.0, Basophils # (Auto) 0.0, Immature Granulocyte # (Auto) 0.1, Percent Immature Platelet Fraction 1.4, Sodium Level 137, Potassium Level 4.8, Chloride Level 104, Carbon Dioxide Level 19L, Anion Gap 14, Blood Urea Nitrogen 56H, Creatinine 2.17H, Estimat Glomerular Filtration Rate 32, BUN/Creatinine Ratio 26, Glucose Level 151H, Calcium Level 8.3L, Corrected Calcium 9.2, Phosphorus Level 3.8, Magnesium Level 2.5H, Total Bilirubin 3.1H, Aspartate Amino Transf (AST/SGOT) 36H, Alanine Aminotransferase (ALT/SGPT) 74H, Alkaline Phosphatase 68, Total Protein 6.4, Albumin 2.9L 05/14/22 07:36: Blood Gas Puncture Site R RAD, Blood Gas Patient Temperature 36.8, Arterial Blood pH 7.36L, Arterial Blood Partial Pressure CO2 41, Arterial Blood Partial Pressure O2 107H, Arterial Blood HCO3 22L, Arterial Blood Total CO2 23.5, Arterial Blood Oxygen Saturation 100, Arterial Blood Base Excess -2.4, Manas Test YES-POS, Blood Gas Ventilator Setting NO, Blood Gas Inspired Oxygen 2L Microbiology 05/12/22 MRSA Screen - Final, Complete MRSA not isolated 05/12/22 Urine Culture - Final, Complete NO GROWTH 05/12/22 Blood Culture - Preliminary, Resulted No growth 05/12/22 Gram Stain - Final, Resulted 05/12/22 Wound Culture - Preliminary, Resulted Gram Negative Troy Staphylococcus aureus Laboratory Tests 05/12/22 16:11 05/12/22 17:20 05/12/22 18:48 05/13/22 03:35 05/13/22 10:35 05/14/22 03:15 A/P: Assessment: R leg cellulitis/fasciitis, managed by Dr Reynolds Septic shock Chronic A Fib - first diagnosed in May 2020, recurrent after cardioversion (apparently has since been in it) - Stress test done at on June 08, 2020 reported no significant ischemia or infarction; echocardiogram was normal - chronic stroke prophylaxis with Xarelto that is currently being held (apparently because of elevated INR) - ventricular rate currently not well controlled Mild, acute, diastolic CHF Ac renal failure, managed by Dr Reynolds (Cr 1.18 on 04/18/22 and 2.66 on 05/12/22) - Hyperkalemia has improved (5.99 at admission, 5.3 on 05/13/22, 4.8 on 05/14/22) ?hepatic dysfunction (elevate transaminases at presentation) Paroxysmal atrial fibrillation, diagnosed in May 2020 after sustaining a fall. Underwent KERRY with cardioversion on 07/28/2020. Plan: * Resume anticoag if ok with Dr Reynolds * Diltiazem and/or digoxin for vent rate control * Monitor labs * JOSEE Champion MD FACP FAC CCDS May 14, 2022 12:20
[2022-05-15 05:07] LABS: BASOPHILS % (AUTO) 0 % (0-10); EOSINOPHILS % (AUTO) 0 % (0-10); HEMOGLOBIN 11.9 g/dL (13.3-17.7); MEAN CORPUSCULAR VOLUME 95 fL (80-99); MEAN PLATELET VOLUME 9.8 fL (9.0-12.2)
[2022-05-15 05:09] LABS: HEMATOCRIT 38 % (40-54); LYMPHOCYTES # (AUTO) 0.8 10^3/uL (1.0-4.0); LYMPHOCYTES % (AUTO) 7 % (12-44); MEAN CORPUSCULAR HEMOGLOBIN 30 pg (25-34); MEAN CORPUSCULAR HGB CONC 32 g/dL (32-36); MONOCYTES # (AUTO) 0.5 10^3/uL (0.0-1.0); MONOCYTES % (AUTO) 4 % (0-12); NEUTROPHILS # (AUTO) 9.7 10^3/uL (1.8-7.8); NEUTROPHILS % (AUTO) 87 % (42-75); PLATELET COUNT 93 10^3/uL (130-400); WHITE BLOOD COUNT 11.1 10^3/uL (4.3-11.0)
[2022-05-15 05:24] LABS: ALBUMIN 2.8 GM/DL (3.2-4.5); POTASSIUM 4.9 MMOL/L (3.6-5.0)
[2022-05-15 05:26] LABS: TOTAL PROTEIN 6.3 GM/DL (6.4-8.2)
[2022-05-15 05:30] LABS: CREATININE SERUM 1.72 MG/DL (0.60-1.30); PHOSPHORUS 3.1 MG/DL (2.3-4.7)
[2022-05-15 05:33] LABS: MAGNESIUM 2.3 MG/DL (1.6-2.4)
[2022-05-15] MEDS: NS IV 1000 ML 1,000 ML IV SCH ×4 (06:11→22:19)
[2022-05-15] MEDS: PIPERACILLIN SODIUM/TAZOBACTAM 4.5 GM in NS (IVPB) 100 ML IV SCH ×3 (06:12→22:19)
[2022-05-15] MEDS: MAGNESIUM 1 GM/100 ML IVPB 100 ML IV SCH (06:39)
[2022-05-15] MEDS: POTASSIUM CL 10MEQ/50ML IVPB 50 ML IV SCH (06:39)
[2022-05-15] MEDS: KCL 20 MEQ TAB (K-DUR) PO SCH (06:40)
--- NOTE | 2022-05-15 06:59 | Progress Note ---
Subjective Date Seen by a Provider: May 15, 2022 Time Seen by a Provider: 11:00 Subjective/Events-last exam Improved status Levophed weaning O2 maintained at 2L/min Appears improved UOP via catheter reviewed Creat 1.7 Less dyspneic Hopefully move to floor tomorrow Review of Systems General: Fatigue, Malaise Pulmonary: Dyspnea Cardiovascular: Edema Focused Exam Lactate Level 05/13/22 05:10: Lactic Acid Level 2.29*H 05/13/22 07:35: Lactic Acid Level 2.15*H 05/13/22 10:35: Lactic Acid Level 2.08*H Time of Focused Exam: 17:00 Objective Exam Last Set of Vital Signs Vital Signs Date Time Temp Pulse Resp B/P (MAP) Pulse Ox O2 Delivery O2 Flow Rate FiO2 05/15/22 06:00 128 21 99/70 (80) 98 Nasal Cannula 2.00 05/15/22 00:15 36.5 05/12/22 20:54 21 Capillary Refill : Less Than 3 Seconds I&O Intake and Output 05/15/22 00:00 Intake Total 3217.84 ml Output Total 1905 ml Balance 1312.84 ml Intake Oral 1277 ml IV Total 1940.84 ml Output Urine Total 1905 ml # Bowel Movements 1 General: Alert, Oriented X3, Cooperative, No Acute Distress Lungs: Clear to Auscultation, Normal Air Movement Heart: Regular Rate, Normal S1, Normal S2, No Murmurs Extremities: Other (edema) Psych/Mental Status: Mental Status NL, Mood NL Results Lab Laboratory Tests 05/14/22 07:36: Blood Gas Puncture Site R RAD, Blood Gas Patient Temperature 36.8, Arterial Blood pH 7.36L, Arterial Blood Partial Pressure CO2 41, Arterial Blood Partial Pressure O2 107H, Arterial Blood HCO3 22L, Arterial Blood Total CO2 23.5, Arterial Blood Oxygen Saturation 100, Arterial Blood Base Excess -2.4, Manas Test YES-POS, Blood Gas Ventilator Setting NO, Blood Gas Inspired Oxygen 2L 05/14/22 18:45: Stool Occult Blood Immunoassay POSITIVEH 05/15/22 04:45: White Blood Count 11.1H, Red Blood Count 3.96L, Hemoglobin 11.9L, Hematocrit 38L , Mean Corpuscular Volume 95, Mean Corpuscular Hemoglobin 30, Mean Corpuscular Hemoglobin Concent 32, Red Cell Distribution Width 16.9H, Platelet Count 93L, Mean Platelet Volume 9.8, Immature Granulocyte % (Auto) 1, Neutrophils (%) (Auto) 87H, Lymphocytes (%) (Auto) 7L, Monocytes (%) (Auto) 4, Eosinophils (%) (Auto) 0, Basophils (%) (Auto) 0, Neutrophils # (Auto) 9.7H, Lymphocytes # (Auto) 0.8L, Monocytes # (Auto) 0.5, Eosinophils # (Auto) 0.0, Basophils # (Auto) 0.0, Immature Granulocyte # (Auto) 0.1, Percent Immature Platelet Fraction 1.5, Sodium Level 137, Potassium Level 4.9, Chloride Level 105, Carbon Dioxide Level 19L, Anion Gap 13, Blood Urea Nitrogen 47H, Creatinine 1.72H, Estimat Glomerular Filtration Rate 43, BUN/Creatinine Ratio 27, Glucose Level 106H, Calcium Level 8.0L, Corrected Calcium 9.0, Phosphorus Level 3.1, Magnesium Level 2.3, Total Bilirubin 3.0H, Aspartate Amino Transf (AST/SGOT) 33, Alanine Aminotransferase (ALT/SGPT) 57H, Alkaline Phosphatase 69, Total Protein 6.3L, Albumin 2.8L Microbiology 05/12/22 MRSA Screen - Final, Complete MRSA not isolated 05/12/22 Urine Culture - Final, Complete NO GROWTH 05/12/22 Blood Culture - Preliminary, Resulted No growth 05/12/22 Gram Stain - Final, Resulted 05/12/22 Wound Culture - Preliminary, Resulted Serratia marcescens Staphylococcus aureus Assessment/Plan Assessment/Plan Assess & Plan/Chief Complaint Assessment: Septic shock requiring pressor therapy of Levophed weaning currently Acute on chronic respiratory failure Pneumonia Right lower extremity cellulitis Acute kidney injury Hyperkalemia Hyponatremia Anasarca Atrial fibrillation w/RVR now much improved Recent COVID CHF history Central line required due to critical illness Elevated liver enzymes Coagulopathy due to Eliquis and acute renal failure Chronic hypoxia supplemental oxygen required since last admit Plan: Broad-spectrum antibiotics of Zosyn and Zyvox Monitor creatinine closely Cardiology and eICU consult Supportive care Prognosis guarded Patient remains critically ill Diagnosis/Problems Diagnosis/Problems (1) Septic shock Status: Acute (2) Cellulitis of right leg Status: Acute (3) RML pneumonia Status: Acute (4) History of COVID-19 Status: Acute (5) Congestive heart failure Status: Acute (6) Primary hypertension (7) Persistent atrial fibrillation (8) MACARIO (acute kidney injury) Status: Acute Clinical Quality Measures DVT/VTE Risk/Contraindication: Contraindications-Mechi: Other *list below* Other: cellulitis legs GISELLA KENNEDY DO May 15, 2022 06:59
--- NOTE | 2022-05-15 07:24 | Diagnostic Imaging Report ---
INDICATION: Dyspnea. COMPARISON: 05/14/2022 FINDINGS: Single frontal radiographic view of the chest was obtained and demonstrates persistent moderate cardiomegaly. Pulmonary vasculature appears slightly more prominent when compared to prior exam. Pulmonary interstitium is also now more conspicuous. Lungs show low inspiratory volumes. There is no large effusion or pneumothorax. Osseous structures show no acute abnormalities. Right internal jugular central venous catheter is noted. IMPRESSION: 1. Persistent cardiomegaly, but with increased prominence of pulmonary vasculature and interstitium. Findings are concerning for progression of CHF. Clinical correlation is advised. Dictated by: Dictated on workstation # [id number]
--- NOTE | 2022-05-15 07:38 | Progress Note - Surgery ---
ZHANNA VEGA 05/15/22 0738: Subjective Date Seen by a Provider: May 15, 2022 Time Seen by a Provider: 06:30 Subjective/Events-last exam Patient claims he is feeling better today with less leg pain than before rated at a 3 or 4 out of 10. He is tolerating a normal diet well and claims he has an increased appetite. He still has sullivan in which was clogged by sediment, RN was able to flush it out. Patient is not ambulating. Review of Systems General: No Chills, No Night Sweats, No Fatigue; Appetite (increased) HEENT: No Head Aches, No Visual Changes, No Dysphasia, No Sore Throat Pulmonary: No Dyspnea, No Cough Cardiovascular: Edema; No: Chest Pain, Lt Headedness Gastrointestinal: Other (RN described BMs as pudding consistency); No: Nausea, Vomiting, Abdominal Pain Genitourinary: Dysuria (pain ), Frequency, Other (pain from catheter) Musculoskeletal: leg pain (right); No: neck pain, back pain Neurological: No: Weakness, Numbness, Confusion Focused Exam Lactate Level 05/13/22 05:10: Lactic Acid Level 2.29*H 05/13/22 07:35: Lactic Acid Level 2.15*H 05/13/22 10:35: Lactic Acid Level 2.08*H Time of Focused Exam: 17:00 Objective Exam Vital Signs Date Time Temp Pulse Resp B/P (MAP) Pulse Ox O2 Delivery O2 Flow Rate FiO2 05/15/22 06:00 128 21 99/70 (80) 98 Nasal Cannula 2.00 05/15/22 05:00 120 22 88/64 (72) 99 Nasal Cannula 2.00 05/15/22 04:00 96 Nasal Cannula 2.00 05/15/22 04:00 120 17 87/71 (76) 97 Nasal Cannula 2.00 05/15/22 03:00 120 16 89/71 (77) 98 Nasal Cannula 2.00 05/15/22 02:00 118 19 96/70 (79) 98 Nasal Cannula 2.00 05/15/22 01:00 131 16 91/72 (78) 99 Nasal Cannula 2.00 05/15/22 01:00 131 05/15/22 00:15 36.5 05/15/22 00:01 96 Nasal Cannula 2.00 05/15/22 00:00 129 16 95/66 (76) 96 Nasal Cannula 2.00 05/14/22 23:00 107 20 95/65 (75) 97 Nasal Cannula 2.00 05/14/22 22:00 107 19 97/72 (80) 98 Nasal Cannula 2.00 05/14/22 21:46 105 94/74 05/14/22 21:00 81 20 91/59 (70) 97 Nasal Cannula 2.00 05/14/22 20:00 35.5 05/14/22 20:00 75 21 100/88 (92) 95 Nasal Cannula 2.00 05/14/22 20:00 96 Nasal Cannula 2.00 05/14/22 19:00 77 21 81/56 (64) 95 Nasal Cannula 2.00 05/14/22 19:00 77 05/14/22 18:00 79 26 127/77 (94) 95 Nasal Cannula 2.00 05/14/22 17:00 114 17 106/56 (73) 96 Nasal Cannula 2.00 05/14/22 16:15 100 Nasal Cannula 2.00 05/14/22 16:00 111 19 86/68 (74) 96 Nasal Cannula 2.00 05/14/22 16:00 36.0 05/14/22 15:00 122 29 100/76 (84) 95 Nasal Cannula 2.00 05/14/22 14:00 141 29 104/78 (87) 95 Nasal Cannula 2.00 05/14/22 13:00 147 21 128/88 (101) 95 Nasal Cannula 2.00 05/14/22 12:31 145 05/14/22 12:00 140 19 108/65 (79) 97 Nasal Cannula 2.00 05/14/22 12:00 100 Nasal Cannula 2.00 05/14/22 12:00 36.6 05/14/22 11:00 125 18 104/84 (91) 96 Nasal Cannula 2.00 05/14/22 10:00 133 23 97/63 (74) 98 Nasal Cannula 2.00 05/14/22 09:00 134 17 105/81 (89) 95 Nasal Cannula 2.00 05/14/22 08:00 109 27 102/75 (84) 96 Nasal Cannula 2.00 05/14/22 07:57 36.1 05/14/22 07:37 98 Nasal Cannula 2.00 I & O 05/15/22 07:00 Intake Total 3033.44 ml Output Total 1705 ml Balance 1328.44 ml Capillary Refill : Less Than 3 Seconds General Appearance: No Apparent Distress, Chronically ill, Obese HEENT: PERRL/EOMI; No Pale Conjunctivae (L), No Pale Conjunctivae (R) Neck: Non Tender, Supple (only left side exmined, central line on right) Respiratory: No Accessory Muscle Use, No Respiratory Distress, Decreased Breath Sounds (bilateral bases); No Wheezing Cardiovascular: Normal Peripheral Pulses, Irregularly Irregular, Tachycardia Peripheral Pulses: 1+ Dorsalis Pedis (R); 2+ Left Dors-Pedis (L), 2+ Radial Pulses (R), 2+ Radial Pulses (L) Gastrointestinal: non tender, soft Extremity: Calf Tenderness (right calf, rated 3 out of 10), Pedal Edema (3+ b/l), Other (able to expel fluid from RLE by applying pressure around lesions) Neurologic/Psychiatric: Alert, Oriented x3 Skin: Cool, Pallor, Other (erythema and edema of RLE up to knee with one anterior calf draining wound and surrounding excoriations with honey colored drainage) Lymphatic: No Adenopathy Results Lab Laboratory Tests 05/14/22 07:36: Blood Gas Puncture Site R RAD, Blood Gas Patient Temperature 36.8, Arterial Blood pH 7.36L, Arterial Blood Partial Pressure CO2 41, Arterial Blood Partial Pressure O2 107H, Arterial Blood HCO3 22L, Arterial Blood Total CO2 23.5, Arterial Blood Oxygen Saturation 100, Arterial Blood Base Excess -2.4, Manas Test YES-POS, Blood Gas Ventilator Setting NO, Blood Gas Inspired Oxygen 2L 05/14/22 18:45: Stool Occult Blood Immunoassay POSITIVEH 05/15/22 04:45: White Blood Count 11.1H, Red Blood Count 3.96L, Hemoglobin 11.9L, Hematocrit 38L , Mean Corpuscular Volume 95, Mean Corpuscular Hemoglobin 30, Mean Corpuscular Hemoglobin Concent 32, Red Cell Distribution Width 16.9H, Platelet Count 93L, Mean Platelet Volume 9.8, Immature Granulocyte % (Auto) 1, Neutrophils (%) (Auto) 87H, Lymphocytes (%) (Auto) 7L, Monocytes (%) (Auto) 4, Eosinophils (%) (Auto) 0, Basophils (%) (Auto) 0, Neutrophils # (Auto) 9.7H, Lymphocytes # (Auto) 0.8L, Monocytes # (Auto) 0.5, Eosinophils # (Auto) 0.0, Basophils # (Auto) 0.0, Immature Granulocyte # (Auto) 0.1, Percent Immature Platelet Fraction 1.5, Sodium Level 137, Potassium Level 4.9, Chloride Level 105, Carbon Dioxide Level 19L, Anion Gap 13, Blood Urea Nitrogen 47H, Creatinine 1.72H, Estimat Glomerular Filtration Rate 43, BUN/Creatinine Ratio 27, Glucose Level 106H, Calcium Level 8.0L, Corrected Calcium 9.0, Phosphorus Level 3.1, Magnesium Level 2.3, Total Bilirubin 3.0H, Aspartate Amino Transf (AST/SGOT) 33, Alanine Aminotransferase (ALT/SGPT) 57H, Alkaline Phosphatase 69, Total Protein 6.3L, Albumin 2.8L Microbiology 05/12/22 MRSA Screen - Final, Complete MRSA not isolated 05/12/22 Urine Culture - Final, Complete NO GROWTH 05/12/22 Blood Culture - Preliminary, Resulted No growth 05/12/22 Gram Stain - Final, Resulted 05/12/22 Wound Culture - Preliminary, Resulted Serratia marcescens Staphylococcus aureus Assessment/Plan Assessment/Plan Assessment/Plan Right leg cellulitis Staph Aureus positive wound culture Stool guaic positive Patient does not need surgical intervention at this time. The fluid leaking from the right leg is not purulent and is likely a result of marked edema in the r ight LE. The right leg is more erythematous than the left but both are the same size and have equal edema. Monitor white count with AM labs and continue on IV linezolid and zosyn to cover for staph aureus. Continue to watch right LE. Would like a CT with contrast to evaluate for GI bleed but patients creatinine is 1.72 this AM. Clinical Quality Measures DVT/VTE Risk/Contraindication: Contraindications-Mechi: Other *list below* Other: cellulitis legs MAXIMINO MEDLEY DO 05/15/22 1252: Subjective Time Seen by a Provider: 11:32 Subjective/Events-last exam Pt seen and examined, states his leg is better today. Pt is more alert today. Review of Systems General: No Chills, No Night Sweats; Appetite (increased) HEENT: No Head Aches, No Visual Changes Pulmonary: No Dyspnea, No Cough Cardiovascular: Edema; No: Chest Pain Gastrointestinal: No: Nausea, Vomiting, Abdominal Pain Genitourinary: Dysuria (pain ), Frequency, Other (pain from catheter) Musculoskeletal: back pain, leg pain (right) Objective Exam General Appearance: No Apparent Distress, Chronically ill, Obese HEENT: PERRL/EOMI Respiratory: No Accessory Muscle Use, No Respiratory Distress, Decreased Breath Sounds (bilateral bases); No Wheezing Cardiovascular: Irregularly Irregular, Tachycardia Gastrointestinal: non tender, soft Extremity: Calf Tenderness (right calf, rated 3 out of 10), Pedal Edema (3+ b/l), Other (able to expel fluid from RLE by applying pressure around lesions) Neurologic/Psychiatric: Alert, Oriented x3 Skin: Cool, Pallor, Other (erythema and edema of RLE up to knee appears improved; with calf draining wound and surrounding excoriations with honey colored drainage) Assessment/Plan Assessment/Plan Assessment/Plan Right leg cellulitis Staph Aureus positive wound culture Stool guaic positive Patient does not need surgical intervention at this time. The fluid leaking from the right leg is not purulent and is likely a result of marked edema in the right LE. The right leg is more erythematous than the left but both are the same size and have equal edema. Monitor white count with AM labs and continue on IV linezolid and zosyn to cover for staph aureus. Continue to watch right LE. Would like a CT with contrast to evaluate for GI bleed but patients creatinine is 1.72 this AM. Will sign off and re-consult if needed. Supervisory-Addendum Brief Verification & Attestation Participated in pt care: history, MDM, physical Personally performed: exam, history, MDM, supervision of care Care discussed with: Medical Student Procedures: n/a Verification and Attestation of Medical Student E/M Service A medical student performed and documented this service. I then reviewed and verified all information documented by the medical student and made modifications to such information, when appropriate. I personally performed a physical exam, medical decision making and then discussed any differences be tween the notes and made revisions as necessary to create one note. Maxiimno Medley , 05/15/22 , 12:52 ZHANNA VEGA May 15, 2022 07:38 MAXIMINO MEDLEY DO May 15, 2022 12:52
[2022-05-15] MEDS: LINEZOLID IVPB 300 ML IV SCH ×2 (07:57→20:51)
[2022-05-15] MEDS: DIGOXIN 0.25 MG (LANOXIN) TAB PO SCH (07:57)
[2022-05-15] MEDS: SENNOSIDES 8.6 MG (SENOKOT) TAB PO SCH ×2 (07:57→20:51)
[2022-05-15] MEDS: NOREPINEPHRINE 8 MG/250 ML 250 ML IV SCH ×2 (07:57→17:01)
[2022-05-15] MEDS: DOCUSATE SODIUM 100 MG (COLACE) CAP PO SCH ×2 (07:57→20:52)
--- NOTE | 2022-05-15 09:45 | Tele-ICU Progress Note ---
Subjective Date Seen by a Provider: May 15, 2022 Time Seen by a Provider: 09:45 Subjective/Events-last exam (Tele-ICU Physician , Progress Note ) Available chart/ vitals / labs / Images reviewed Video assessment done using teleICU camera, rest of exam as per RN Discussed with RN Events overnight : Afebrile hemodynamically stable Respiratory - 2l I/O = pos Drips: ns 125 vaso Pressors- levo Consultants: noa Hospital course: (05/12) 67/M admitted s/p fall, septic shock, RLE cellulitis/pain, unable to ambul ate. CHF vs PNA--Recent COVID on 04/07. ARF. Coagulopathic (05/13) Renals slightly worse again w/hyperkalemia, remains coagulopathic A/P Shock , septic - cotn pressors and hydration - check CVP - ADD VASOPRESSINE , trying to wean off levo Cellulitis , RLL PNA - 05/12 Zosy and zyvox MACARIO -slow improving with hydration A fib - rate controlled - on Eliquis IN SERVICE COORDINATOR - ON HOLD Coagulopathy - ( on Eliquis IN SERVICE COORDINATOR - no active bleeding - recheck INR am Thrombocytopenia - PLT drop 140s-->90s - ? delutional ,follow closely Recent COVID 03/2022 - on O2 at home h/o SAH in 2019 , s/p syncope and fall off a ladder Lines : R IJ 05/12 , (Central Line Necessity Reviewed) Landry: + OG: Nutrition: Po Analgesia: Anxiety/ delirium VTE Prophylaxis: INR elevated Stress Ulcer Prophylaxis: na Plans in collaboration with bedside consultants and IM MDs. Discussed with RN to reach out if any questions or concerns A total of 22 minutes of critical care time was devoted to this patient today, required to treat and/or prevent further deterioration of critical care condition ( as above ) . Sepsis Event Evaluation Height, Weight, BMI Height: '" Weight: lbs. oz. kg; 39.13 BMI Method: Focused Exam Lactate Level 05/13/22 05:10: Lactic Acid Level 2.29*H 05/13/22 07:35: Lactic Acid Level 2.15*H 05/13/22 10:35: Lactic Acid Level 2.08*H Time of Focused Exam: 17:00 Exam Exam Patient acknowledged, consented, and participated in this virtual visit which was conducted using real time audio/video Vital Signs Date Time Temp Pulse Resp B/P (MAP) Pulse Ox O2 Delivery O2 Flow Rate FiO2 05/15/22 08:00 116 19 97/76 (83) 100 Nasal Cannula 2.00 05/15/22 08:00 36.1 05/15/22 07:54 110 05/15/22 07:00 118 25 96/73 (81) 97 Nasal Cannula 2.00 05/15/22 06:00 128 21 99/70 (80) 98 Nasal Cannula 2.00 05/15/22 05:00 120 22 88/64 (72) 99 Nasal Cannula 2.00 05/15/22 04:00 96 Nasal Cannula 2.00 05/15/22 04:00 120 17 87/71 (76) 97 Nasal Cannula 2.00 05/15/22 03:00 120 16 89/71 (77) 98 Nasal Cannula 2.00 05/15/22 02:00 118 19 96/70 (79) 98 Nasal Cannula 2.00 05/15/22 01:00 131 16 91/72 (78) 99 Nasal Cannula 2.00 05/15/22 01:00 131 05/15/22 00:15 36.5 05/15/22 00:01 96 Nasal Cannula 2.00 05/15/22 00:00 129 16 95/66 (76) 96 Nasal Cannula 2.00 05/14/22 23:00 107 20 95/65 (75) 97 Nasal Cannula 2.00 05/14/22 22:00 107 19 97/72 (80) 98 Nasal Cannula 2.00 05/14/22 21:46 105 94/74 05/14/22 21:00 81 20 91/59 (70) 97 Nasal Cannula 2.00 05/14/22 20:00 35.5 05/14/22 20:00 75 21 100/88 (92) 95 Nasal Cannula 2.00 05/14/22 20:00 96 Nasal Cannula 2.00 05/14/22 19:00 77 21 81/56 (64) 95 Nasal Cannula 2.00 05/14/22 19:00 77 05/14/22 18:00 79 26 127/77 (94) 95 Nasal Cannula 2.00 05/14/22 17:00 114 17 106/56 (73) 96 Nasal Cannula 2.00 05/14/22 16:15 100 Nasal Cannula 2.00 05/14/22 16:00 111 19 86/68 (74) 96 Nasal Cannula 2.00 05/14/22 16:00 36.0 05/14/22 15:00 122 29 100/76 (84) 95 Nasal Cannula 2.00 05/14/22 14:00 141 29 104/78 (87) 95 Nasal Cannula 2.00 05/14/22 13:00 147 21 128/88 (101) 95 Nasal Cannula 2.00 05/14/22 12:31 145 05/14/22 12:00 140 19 108/65 (79) 97 Nasal Cannula 2.00 05/14/22 12:00 100 Nasal Cannula 2.00 05/14/22 12:00 36.6 05/14/22 11:00 125 18 104/84 (91) 96 Nasal Cannula 2.00 05/14/22 10:00 133 23 97/63 (74) 98 Nasal Cannula 2.00 I & O 05/15/22 07:00 Intake Total 3033.44 ml Output Total 1705 ml Balance 1328.44 ml Height & Weight Height: '" Weight: lbs. oz. kg; 39.13 BMI Method: General Appearance: No Apparent Distress, Chronically ill, Obese HEENT: PERRL/EOMI; No Pale Conjunctivae (L), No Pale Conjunctivae (R) Neck: Non Tender, Supple (only left side exmined, central line on right) Respiratory: No Accessory Muscle Use, No Respiratory Distress, Decreased Breath Sounds (bilateral bases); No Wheezing Cardiovascular: Normal Peripheral Pulses, Irregularly Irregular, Tachycardia Capillary Refill: Less Than 3 Seconds Peripheral Pulses: 1+ Dorsalis Pedis (R); 2+ Left Dors-Pedis (L), 2+ Radial Pulses (R), 2+ Radial Pulses (L) Gastrointestinal: non tender, soft Extremity: Calf Tenderness (right calf, rated 3 out of 10), Pedal Edema (3+ b/l), Other (able to expel fluid from RLE by applying pressure around lesions) Neurologic/Psychiatric: Alert, Oriented x3 Skin: Cool, Pallor, Other (erythema and edema of RLE up to knee with one anterior calf draining wound and surrounding excoriations with honey colored drainage) Lymphatic: No Adenopathy Results Lab Laboratory Tests 05/13/22 10:35 05/14/22 03:15 05/15/22 04:45 Assessment/Plan Assessment/Plan 1 LAZARO SINGH MD May 15, 2022 09:45
[2022-05-15] MEDS: VASOPRESSIN INJECTION 20 UNIT in NS (IVPB) 100 ML IV SCH ×2 (10:40→21:49)
--- NOTE | 2022-05-15 15:46 | Progress Note - Cardiology ---
Cardiology SOAP Progress Note Subjective: Leg pain better No n/v/d No cp or palp or syncope Bilat leg swelling, R > L Gen weakness and malaise Objective: I&O/Vital Signs 05/15/22 05/15/22 05/15/22 05/15/22 04:00 04:00 05:00 06:00 Pulse 120 120 128 Resp 17 22 21 B/P (MAP) 87/71 (76) 88/64 (72) 99/70 (80) Pulse Ox 97 96 99 98 O2 Delivery Nasal Cannula Nasal Cannula Nasal Cannula Nasal Cannula O2 Flow Rate 2.00 2.00 2.00 2.00 05/15/22 05/15/22 05/15/22 05/15/22 07:00 07:54 08:00 08:00 Temp 36.1 Pulse 118 110 116 Resp 25 19 B/P (MAP) 96/73 (81) 97/76 (83) Pulse Ox 97 100 O2 Delivery Nasal Cannula Nasal Cannula O2 Flow Rate 2.00 2.00 05/15/22 05/15/22 05/15/22 05/15/22 08:15 09:00 10:00 10:40 Pulse 112 108 Resp 19 20 B/P (MAP) 104/68 (80) 94/70 (78) 94/75 Pulse Ox 100 99 O2 Delivery Nasal Cannula Nasal Cannula Nasal Cannula O2 Flow Rate 2.00 2.00 2.00 05/15/22 05/15/22 05/15/22 05/15/22 11:00 11:35 12:00 12:05 Temp 36.0 Pulse 47 67 Resp 20 22 B/P (MAP) 99/79 (86) 98/77 (84) Pulse Ox 97 96 O2 Delivery Nasal Cannula Nasal Cannula Nasal Cannula O2 Flow Rate 2.00 2.00 2.00 05/15/22 05/15/22 05/15/22 12:37 13:00 14:00 Pulse 67 54 65 Resp 21 15 B/P (MAP) 91/68 (76) 98/64 (75) Pulse Ox 97 94 O2 Delivery Nasal Cannula Nasal Cannula O2 Flow Rate 2.00 2.00 05/15/22 00:00 Intake Total 1439 ml Output Total 755 ml Balance 684 ml Constitutional: AAO x 3, well-developed, well-nourished Respiratory: No accessory muscle use; other (fair to good, bilat air entry that is diminished at the bases) Cardiovascular: irregularly irregular, S1 and S2, systolic murmur (soft REJI at card base) Gastrointestional: No tender; soft; No guarding, No rebound; audible bowel sounds Extremities: other (R leg swelling and tenderness and increase temperature and redness (more marked on the lower leg and the foot)); No clubbing, No cyanosis Neurologic/Psychiatric: other (moves all limbs equally) Skin: normal color, warm/dry, other (erythema RLE with draining wounds lat RLE; honey crusted, superficial abrasions) Results/Procedures: Labs Laboratory Tests 05/14/22 18:45: Stool Occult Blood Immunoassay POSITIVEH 05/15/22 04:45: White Blood Count 11.1H, Red Blood Count 3.96L, Hemoglobin 11.9L, Hematocrit 38L , Mean Corpuscular Volume 95, Mean Corpuscular Hemoglobin 30, Mean Corpuscular Hemoglobin Concent 32, Red Cell Distribution Width 16.9H, Platelet Count 93L, Mean Platelet Volume 9.8, Immature Granulocyte % (Auto) 1, Neutrophils (%) (Auto) 87H, Lymphocytes (%) (Auto) 7L, Monocytes (%) (Auto) 4, Eosinophils (%) (Auto) 0, Basophils (%) (Auto) 0, Neutrophils # (Auto) 9.7H, Lymphocytes # (Auto) 0.8L, Monocytes # (Auto) 0.5, Eosinophils # (Auto) 0.0, Basophils # (Auto) 0.0, Immature Granulocyte # (Auto) 0.1, Percent Immature Platelet Frac tion 1.5, Sodium Level 137, Potassium Level 4.9, Chloride Level 105, Carbon Dioxide Level 19L, Anion Gap 13, Blood Urea Nitrogen 47H, Creatinine 1.72H, Estimat Glomerular Filtration Rate 43, BUN/Creatinine Ratio 27, Glucose Level 106H, Calcium Level 8.0L, Corrected Calcium 9.0, Phosphorus Level 3.1, Magnesium Level 2.3, Total Bilirubin 3.0H, Aspartate Amino Transf (AST/SGOT) 33, Alanine Aminotransferase (ALT/SGPT) 57H, Alkaline Phosphatase 69, Total Protein 6.3L, Albumin 2.8L Microbiology 05/12/22 MRSA Screen - Final, Complete MRSA not isolated 05/12/22 Urine Culture - Final, Complete NO GROWTH 05/12/22 Blood Culture - Preliminary, Resulted No growth 05/12/22 Gram Stain - Final, Resulted 05/12/22 Wound Culture - Preliminary, Resulted Serratia marcescens Laboratory Tests 05/14/22 03:15 05/15/22 04:45 A/P: Assessment: R leg cellulitis/fasciitis, managed by Dr Reynolds Septic shock Mild thrombocytopenia (worsening) Dilated cardiomyopathy - echo on 05/14/22: Left ventricle dilated. LVEF 25-30%. Moderate diffuse hypokinesis. Grade 2 diastolic dysfunction. Biatrial enlargement (mod). MR, moderate to severe. PASP 40 mm Hg to 45 mm Hg. Chronic A Fib - first diagnosed in May 2020, recurrent after cardioversion (apparently has since been in it) Mild, acute, diastolic CHF Ac renal failure, managed by Dr Reynolds (Cr 1.18 on 04/18/22 and 2.66 on 05/12/22) - Hyperkalemia has improved (5.99 at admission, 5.3 on 05/13/22, 4.8 on 05/14/22) ?hepatic dysfunction (elevate transaminases at presentation) Paroxysmal atrial fibrillation, diagnosed in May 2020 after sustaining a fall. Underwent KERRY with cardioversion on 07/28/2020. Plan: * Complex management * Does not appear suitable for oral anticoag given multiple oozing yesterday and due to falling platelet count. Resume as soon as clinically deemed safe * Digoxin for vent rate control * BB as tolerated by bp. D/c dilt to provide room on bp * Not suitable for NICOLLE-inhib or ARB due to renal failure and hyperkalemia * Diuretics as needed and as tolerated * Monitor labs JOSEE PEACOCK MD FACP [facility] May 15, 2022 15:46
[2022-05-15] MEDS ORDERED: FUROSEMIDE 40 MG/4 ML INJ (LASIX) IVP NR (16:15)
[2022-05-16 05:20] LABS: BASOPHILS % (AUTO) 0 % (0-10); EOSINOPHILS % (AUTO) 0 % (0-10); HEMATOCRIT 38 % (40-54); HEMOGLOBIN 12.3 g/dL (13.3-17.7); LYMPHOCYTES # (AUTO) 0.8 10^3/uL (1.0-4.0); LYMPHOCYTES % (AUTO) 7 % (12-44); MEAN CORPUSCULAR HEMOGLOBIN 30 pg (25-34); MEAN CORPUSCULAR HGB CONC 32 g/dL (32-36); MEAN CORPUSCULAR VOLUME 94 fL (80-99); MEAN PLATELET VOLUME 9.7 fL (9.0-12.2); MONOCYTES # (AUTO) 0.4 10^3/uL (0.0-1.0); MONOCYTES % (AUTO) 4 % (0-12); NEUTROPHILS # (AUTO) 9.8 10^3/uL (1.8-7.8); NEUTROPHILS % (AUTO) 88 % (42-75); PLATELET COUNT 83 10^3/uL (130-400); WHITE BLOOD COUNT 11.2 10^3/uL (4.3-11.0)
[2022-05-16] MEDS: NS IV 1000 ML 1,000 ML IV SCH (05:30)
[2022-05-16 05:31] LABS: INR 1.7 (0.8-1.4); PROTHROMBIN TIME PATIENT 20.5 SEC (12.2-14.7)
[2022-05-16 05:33] LABS: ALBUMIN 2.9 GM/DL (3.2-4.5); POTASSIUM 4.8 MMOL/L (3.6-5.0)
[2022-05-16 05:35] LABS: TOTAL PROTEIN 6.6 GM/DL (6.4-8.2)
[2022-05-16 05:37] LABS: BILIRUBIN,TOTAL 2.9 MG/DL (0.1-1.0)
[2022-05-16 05:39] LABS: CREATININE SERUM 1.72 MG/DL (0.60-1.30); PHOSPHORUS 3.7 MG/DL (2.3-4.7)
[2022-05-16 05:42] LABS: MAGNESIUM 2.3 MG/DL (1.6-2.4)
[2022-05-16] MEDS: NOREPINEPHRINE 8 MG/250 ML 250 ML IV SCH ×2 (05:51→22:10)
[2022-05-16] MEDS: PIPERACILLIN SODIUM/TAZOBACTAM 4.5 GM in NS (IVPB) 100 ML IV SCH (05:51)
[2022-05-16] MEDS: POTASSIUM CL 10MEQ/50ML IVPB 50 ML IV SCH (06:08)
[2022-05-16] MEDS: MAGNESIUM 1 GM/100 ML IVPB 100 ML IV SCH (06:09)
[2022-05-16] MEDS: KCL 20 MEQ TAB (K-DUR) PO SCH (06:09)
--- NOTE | 2022-05-16 07:04 | Progress Note ---
Subjective Date Seen by a Provider: May 16, 2022 Time Seen by a Provider: 10:00 Subjective/Events-last exam Improved status Levophed weaning Monitor closely in meantime at bedside Daughter at bedside No pain reported Checked meds and labs Creat improved Review of Systems General: Fatigue, Malaise Focused Exam Lactate Level 05/13/22 07:35: Lactic Acid Level 2.15*H 05/13/22 10:35: Lactic Acid Level 2.08*H Time of Focused Exam: 17:00 Objective Exam Last Set of Vital Signs Vital Signs Date Time Temp Pulse Resp B/P (MAP) Pulse Ox O2 Delivery O2 Flow Rate FiO2 05/16/22 06:00 104 20 110/70 (83) 95 Nasal Cannula 2.00 05/15/22 19:27 36.0 05/12/22 20:54 21 Capillary Refill : Less Than 3 Seconds I&O Intake and Output 05/15/22 23:59 Intake Total 5286.80 ml Output Total 1875 ml Balance 3411.80 ml Intake Oral 1200 ml IV Total 4086.80 ml Output Urine Total 1875 ml # Bowel Movements 1 General: Alert, Oriented X3, Cooperative, No Acute Distress Lungs: Clear to Auscultation, Normal Air Movement Heart: Regular Rate, Normal S1, Normal S2, No Murmurs Extremities: Other (edema) Psych/Mental Status: Mental Status NL, Mood NL Results Lab Laboratory Tests 05/16/22 05:10: White Blood Count 11.2H, Red Blood Count 4.06L, Hemoglobin 12.3L, Hematocrit 38L , Mean Corpuscular Volume 94, Mean Corpuscular Hemoglobin 30, Mean Corpuscular Hemoglobin Concent 32, Red Cell Distribution Width 17.0H, Platelet Count 83L, Mean Platelet Volume 9.7, Immature Granulocyte % (Auto) 1, Neutrophils (%) (Auto) 88H, Lymphocytes (%) (Auto) 7L, Monocytes (%) (Auto) 4, Eosinophils (%) (Auto) 0, Basophils (%) (Auto) 0, Neutrophils # (Auto) 9.8H, Lymphocytes # (Auto) 0.8L, Monocytes # (Auto) 0.4, Eosinophils # (Auto) 0.0, Basophils # (Auto) 0.0, Immature Granulocyte # (Auto) 0.1, Prothrombin Time 20.5H, INR Comment 1.7H, Sodium Level 135, Potassium Level 4.8, Chloride Level 104, Carbon Dioxide Level 18L, Anion Gap 13, Blood Urea Nitrogen 45H, Creatinine 1.72H, Estimat Glomerular Filtration Rate 43, BUN/Creatinine Ratio 26, Glucose Level 153H, Calcium Level 8.0L, Corrected Calcium 8.9, Phosphorus Level 3.7, Magnesium Level 2.3, Total Bilirubin 2.9H, Aspartate Amino Transf (AST/SGOT) 29, Alanine Aminotransferase (ALT/SGPT) 45, Alkaline Phosphatase 73, Total Protein 6.6, Albumin 2.9L Microbiology 05/12/22 MRSA Screen - Final, Complete MRSA not isolated 05/12/22 Urine Culture - Final, Complete NO GROWTH 05/12/22 Blood Culture - Preliminary, Resulted No growth 05/12/22 Gram Stain - Final, Resulted 05/12/22 Wound Culture - Preliminary, Resulted Serratia marcescens Assessment/Plan Assessment/Plan Assess & Plan/Chief Complaint Assessment: Septic shock requiring pressor therapy of Levophed weaning currently Acute on chronic respiratory failure Pneumonia Right lower extremity cellulitis Acute kidney injury Hyperkalemia Hyponatremia Anasarca Atrial fibrillation w/RVR now much improved Recent COVID CHF history Central line required due to critical illness Elevated liver enzymes Coagulopathy due to Eliquis and acute renal failure Chronic hypoxia supplemental oxygen required since last admit Plan: Broad-spectrum antibiotics of Zosyn and Zyvox Monitor creatinine closely Cardiology and eICU consult Supportive care Prognosis guarded Patient remains critically ill Diagnosis/Problems Diagnosis/Problems (1) Septic shock Status: Acute (2) Cellulitis of right leg Status: Acute (3) RML pneumonia Status: Acute (4) History of COVID-19 Status: Acute (5) Congestive heart failure Status: Acute (6) Primary hypertension (7) Persistent atrial fibrillation (8) MACARIO (acute kidney injury) Status: Acute Clinical Quality Measures DVT/VTE Risk/Contraindication: Contraindications-Mechi: Other *list below* Other: cellulitis legs GISELLA KENNEDY DO May 16, 2022 07:03
--- NOTE | 2022-05-16 07:51 | Diagnostic Imaging Report ---
INDICATION: Dyspnea. TECHNIQUE: Single view chest 2:16 AM. CORRELATION STUDY: 05/15/2022 FINDINGS: Right IJ central line tip at the SVC. Loop recorder device of the central left heart. Heart size, mediastinum and vasculature overall are prominent. May be slightly improved from prior. Bilateral pulmonary opacities likely largely edema slightly improved as well. IMPRESSION: 1. Rather prominent severity edema is again demonstrated but does appear to be perhaps slightly improved from prior day's study. Dictated by: Dictated on workstation # [id number]
[2022-05-16] MEDS ORDERED: ENOXAPARIN 100 MG/1 ML (LOVENOX) SYR SC SCH (08:30)
--- NOTE | 2022-05-16 08:31 | Cardiology Progress Note ---
Subjective Date Seen by Provider: May 16, 2022 Time Seen by Provider: 08:25 Subjective/Events-last exam Patient was seen at bedside, laying down comfortably, borderline hypotensive. Denied any chest pain, having significant peripheral edema Review of Systems General: No Chills, No Night Sweats; Fatigue, Malaise; No Appetite, No Other HEENT: No Head Aches, No Visual Changes, No Eye Pain, No Ear Pain, No Dysphasia, No Sinus Congestion, No Post Nasal Drip, No Sore Throat, No Other Pulmonary: No Dyspnea, No Cough, No Pleuritic Chest Pain, No Other Cardiovascular: Edema; No: Chest Pain, Palpitations, Orthopnea, Paroxysmal Noc. Dyspnea, Lt Headedness, Other Focused Exam Lactate Level 05/13/22 10:35: Lactic Acid Level 2.08*H Time of Focused Exam: 17:00 Objective-Cardiology Exam Last Set of Vital Signs Vital Signs 05/12/22 05/16/22 05/16/22 20:54 07:46 08:00 Temp 36.0 Pulse 110 Resp 18 B/P (MAP) 116/84 (95) Pulse Ox 96 O2 Delivery Nasal Cannula O2 Flow Rate 2.00 FiO2 21 I&O Intake and Output 05/16/22 00:00 Intake Total 5286.80 ml Output Total 1875 ml Balance 3411.80 ml Intake Oral 1200 ml IV Total 4086.80 ml Output Urine Total 1875 ml # Bowel Movements 1 General: Alert, Oriented X3, Cooperative, No Acute Distress Lungs: Clear to Auscultation, Normal Air Movement Heart: Normal S1, Normal S2, No Murmurs, Other (Atrial fibrillation with rapid ventricular response) Extremities: No Clubbing, No Cyanosis, Other (edema) Skin: No Rashes Neuro: Normal Gait, Normal Speech, Strength at 5/5 X4 Ext, Normal Tone Psych/Mental Status: Mental Status NL, Mood NL Results Lab Laboratory Tests 05/16/22 05:10 A/P-Cardiology Admission Diagnosis Septic shock Acute left ventricular systolic dysfunction, nonischemic cardiomyopathy Atrial fibrillation Cellulitis Assessment/Plan Right leg cellulitis/fasciitis, managed by primary care physician Septic shock, hypotension. Receiving antibiotics. Maintained on Levophed. Atrial fibrillation, tachycardia. History of paroxysmal atrial fibrillation, had KERRY and cardioversion in May 2020. Was back in atrial fibrillation as a persistent atrial fibrillation, has been refusing cardioversion Intolerant to Multaq Currently borderline hypotensive, I am planning to do KERRY with electrical cardioversion Congestive heart failure, acute left ventricular systolic dysfunction 2D echo was done on May 14, 2022 showing dilated left ventricle with ejection fraction 25 to 30%, diffuse hypokinesia, grade 2 diastolic dysfunction, biatrial enlargement, moderate mitral regurgitation, PA pressure 40 to 45 mmHg Probably nonischemic cardiomyopathy, last stress test was done in May 2020 showing no significant ischemia or infarction Probably heart failure secondary to tachycardia Starting diuresis and monitor closely [id number] score of 2, has been maintained on Xarelto. Did not receive anticoagulation on this admission. I started Lovenox and will monitor platelets Thrombocytopenia, worsening, monitor platelets and H&H while receiving Lovenox Elevated liver enzymes, monitor liver functions Acute renal insufficiency, renal function are better. History of syncope and fall from a ladder with subarachnoid hemorrhage in May 2020. Treated at . Stress test done in May 2020 showing no significant ischemia or infarction, at that time his echo was normal. AUDELIA BEARD MD May 16, 2022 08:31
[2022-05-16] MEDS ORDERED: RT-ALBUINH IH (08:53)
[2022-05-16] MEDS ORDERED: ASPI-1238 PO (08:53)
[2022-05-16] MEDS ORDERED: FURO40TA4 PO (08:53)
[2022-05-16] MEDS ORDERED: POTA-51 PO (08:53)
[2022-05-16] MEDS ORDERED: DILT120C85 PO (08:53)
[2022-05-16] MEDS: SENNOSIDES 8.6 MG (SENOKOT) TAB PO SCH ×2 (09:00→20:52)
[2022-05-16] MEDS: FUROSEMIDE 40 MG/4 ML INJ (LASIX) IVP SCH ×2 (09:08→18:20)
[2022-05-16] MEDS: DIGOXIN 0.25 MG (LANOXIN) TAB PO SCH (09:09)
[2022-05-16] MEDS: ENOXAPARIN 120 MG/0.8 ML (LOVENOX) SQ SCH ×2 (09:10→20:53)
[2022-05-16] MEDS: cefTRIAXone 2,000 MG/NS 50 ML IVPB IV SCH ×2 (09:10)
[2022-05-16] MEDS: DOCUSATE SODIUM 100 MG (COLACE) CAP PO SCH ×2 (09:11→20:52)
[2022-05-16] MEDS: VASOPRESSIN INJECTION 20 UNIT in NS (IVPB) 100 ML IV SCH ×2 (09:12→22:09)
--- NOTE | 2022-05-16 10:04 | Tele-ICU Progress Note ---
Subjective Date Seen by a Provider: May 16, 2022 Time Seen by a Provider: 10:04 Subjective/Events-last exam (Tele-ICU Physician , Progress Note ) Available chart/ vitals / labs / Images reviewed Video assessment done using teleICU camera, rest of exam as per RN Discussed with RN Events overnight : Afebrile hemodynamically stable Respiratory - 2l I/O = pos Drips: off Pressors- levo vaso Consultants: noa Hospital course: (05/12) 67/M admitted s/p fall, septic shock, RLE cellulitis/pain, unable to ambulate. CHF vs PNA--Recent COVID on 04/07. ARF. Coagulopathic (05/13) Renals slightly worse again w/hyperkalemia, remains coagulopathic 05/15- ECHO 05/15 EF 25% , gdII dst dsfnc . RVSP 45 hmmHG 05/16 - levo , vaso - coreg placed on holsd A/P Shock , septic - cotn pressors , decrease hydration ( EF 25 % ) - check CVP -, trying to wean off levo - ( was off , but resumed after coreg given - now on hold ... 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 delutional vs due to Zosyn ?,follow closely Recent COVID 03/2022 - on O2 at home h/o SAH in 2019 , s/p syncope and fall off a ladder Lines : R IJ 05/12 , (Central Line Necessity Reviewed) Landry: + OG: Nutrition: Po Analgesia: Anxiety/ delirium VTE Prophylaxis: INR elevated Stress Ulcer Prophylaxis: na Plans in collaboration with bedside consultants and IM MDs. Discussed with RN to reach out if any questions or concerns A total of 31 minutes of critical care time was devoted to this patient today, required to treat and/or prevent further deterioration of critical care condition ( as above ) . Sepsis Event Evaluation Height, Weight, BMI Height: '" Weight: lbs. oz. kg; 39.13 BMI Method: Focused Exam Lactate Level 05/13/22 10:35: Lactic Acid Level 2.08*H Time of Focused Exam: 17:00 Exam Exam Patient acknowledged, consented, and participated in this virtual visit which was conducted using real time audio/video Vital Signs Date Time Temp Pulse Resp B/P (MAP) Pulse Ox O2 Delivery O2 Flow Rate FiO2 05/16/22 09:12 120 91/77 05/16/22 09:00 114 19 94/84 (87) 95 Nasal Cannula 2.00 05/16/22 08:00 110 18 116/84 (95) 96 Nasal Cannula 2.00 05/16/22 07:46 36.0 05/16/22 07:05 105 05/16/22 07:00 111 19 105/79 (88) 96 Nasal Cannula 2.00 05/16/22 06:00 104 20 110/70 (83) 95 Nasal Cannula 2.00 05/16/22 05:51 95 96/78 05/16/22 05:00 106 18 101/75 (84) 96 Nasal Cannula 2.00 05/16/22 04:00 Nasal Cannula 2.00 05/16/22 04:00 109 17 99/88 (92) 96 Nasal Cannula 2.00 05/16/22 03:00 86 14 112/72 (85) 96 Nasal Cannula 2.00 05/16/22 02:00 96 18 101/78 (86) 97 Nasal Cannula 2.00 05/16/22 01:00 98 05/16/22 01:00 98 16 85/71 (76) 97 Nasal Cannula 2.00 05/16/22 00:00 Nasal Cannula 2.00 05/16/22 00:00 89 18 87/62 (70) 97 Nasal Cannula 2.00 05/15/22 23:00 83 18 87/44 (58) 97 Nasal Cannula 2.00 05/15/22 22:00 105 20 84/48 (60) 97 Nasal Cannula 2.00 05/15/22 21:49 88 70/53 05/15/22 21:00 109 18 83/60 (68) 97 Nasal Cannula 2.00 05/15/22 20:00 Nasal Cannula 2.00 05/15/22 20:00 112 19 91/62 (72) 99 Nasal Cannula 2.00 05/15/22 19:27 36.0 05/15/22 19:18 98 Nasal Cannula 2.00 05/15/22 19:00 105 19 98/67 (77) 99 Nasal Cannula 2.00 05/15/22 19:00 120 05/15/22 18:00 110 22 100/72 (81) 96 Nasal Cannula 2.00 05/15/22 17:00 70 23 98/83 (88) 95 Nasal Cannula 2.00 05/15/22 16:00 66 27 104/76 (85) 95 Nasal Cannula 2.00 05/15/22 16:00 35.8 05/15/22 15:50 Nasal Cannula 2.00 05/15/22 15:00 68 17 87/63 (71) 95 Nasal Cannula 2.00 05/15/22 14:00 65 15 98/64 (75) 94 Nasal Cannula 2.00 05/15/22 13:00 54 21 91/68 (76) 97 Nasal Cannula 2.00 05/15/22 12:37 67 05/15/22 12:05 36.0 05/15/22 12:00 67 22 98/77 (84) 96 Nasal Cannula 2.00 05/15/22 11:35 Nasal Cannula 2.00 05/15/22 11:00 47 20 99/79 (86) 97 Nasal Cannula 2.00 05/15/22 10:40 94/75 I & O 05/16/22 07:00 Intake Total 5426.78 ml Output Total 1875 ml Balance 3551.78 ml Height & Weight Height: '" Weight: lbs. oz. kg; 39.13 BMI Method: General Appearance: No Apparent Distress, Chronically ill, Obese HEENT: PERRL/EOMI Neck: Non Tender, Supple (only left side exmined, central line on right) Respiratory: No Accessory Muscle Use, No Respiratory Distress, Decreased Breath Sounds (bilateral bases); No Wheezing Cardiovascular: Irregularly Irregular, Tachycardia Capillary Refill: Less Than 3 Seconds Peripheral Pulses: 1+ Dorsalis Pedis (R); 2+ Left Dors-Pedis (L), 2+ Radial Pulses (R), 2+ Radial Pulses (L) Gastrointestinal: non tender, soft Extremity: Calf Tenderness (right calf, rated 3 out of 10), Pedal Edema (3+ b/l), Other (able to expel fluid from RLE by applying pressure around lesions) Neurologic/Psychiatric: Alert, Oriented x3 Skin: Cool, Pallor, Other (erythema and edema of RLE up to knee appears imp roved; with calf draining wound and surrounding excoriations with honey colored drainage) Lymphatic: No Adenopathy Results Lab Laboratory Tests 05/15/22 04:45 05/16/22 05:10 Assessment/Plan Assessment/Plan 1 LAZARO SINGH MD May 16, 2022 10:04
--- NOTE | 2022-05-16 11:57 | Occupational Therapy Eval ---
OT Evaluation-General/PLF Medical Diagnosis Admission Date May 12, 2022 at 19:26 Medical Diagnosis: cellulitis of R leg, RML PNA Onset Date: May 12, 2022 Therapy Diagnosis Therapy Diagnosis: decreased ADL status, weakness Precautions Precautions/Isolations: Fall Prevention, Standard Precautions, Pressure Ulcer Referral Physician: Gail Jackson Reason: Evaluation/Treatment Medical History Additional Medical History afib, CVA, HTN Current History ED via EMS after fall out of chair and inability to walk. found to have severe sepsis, RLE cellulitis and RML PNA Social History Home: Single Level Current Living Status: Spouse ADL-Prior Level of Function SCALE: Activities may be completed with or without assistive devices. 7-Vhqdjcyuot-urmmmby completes the activity by him/herself with no assistance from a helper. 5-Set-up or Clean-up Assistance-helper sets up or cleans up; patient completes activity. [place] assists only prior to or following the activity. 4-Supervision or Touching Assistance-helper provides verbal cues and/or touching/steadying and/or contact guard assistance as patient completes activity. Assistance may be provided throughout the activity or intermittently. 3-Partial/Moderate Assistance-helper does LESS THAN HALF the effort. [place] lifts, holds or supports trunk or limbs, but provides less than half the effort. 2-Substantial/Maximal Assistance-helper does MORE THAN HALF the effort. [place] lifts or holds trunk or limbs and provides more than half the effort. 5-Hloyqnqvd-qmjdqg does ALL the effort. Patient does none of the effort to complete the activity. Or, the assistance of 2 or more helpers is required for the patient to complete the activity. If activity was not attempted, code reason: 7-Patient Refused. 9-Not Applicable-not attempted and the patient did not perform the activity before the current illness, exacerbation or injury. 10-Not Attempted due to Environmental Limitations-(lack of equipment, weather restraints, etc.). 88-Not Attempted due to Medical Conditions or Safety Concerns. ADL PLOF Comments Pt reports IND with ADLs and functional mobility, no AD. He has a tub/shower, no SC Self Care: Independent Functional Cognition: Independent OT Current Status Subjective Pt in bed, eyes closed. Pt had difficulty keeping eyes open during tx, and sometimes wouldn't respond to questions asked. Pt states he is tired. Current Hand Dominance: Right Upper Extremity ROM WFL, BUE shoulder flexion to approx 140 degrees Upper Extremity Strength grossly 3+/5 ADL-Treatment Eating (QC): 6 (IND per pt report.) Oral Hygiene (QC): 7 On/Off Footwear (QC): 7 Toileting Hygiene (QC): 7 Other Treatments Pt in bed, OT educated pt on purpose/benefit of OT, he verbalized understanding and participated in UE Screen. Pt encouraged to participate in OOB activities and ADLs, but he declined. Pt agreeable to BUE exercises in order to increase BUE Strength and activity tolerance. Pt completed x10 reps each of the following BUE exercises, AROM: shoulder flexion, elbow flexion/extension, and front punch. Post tx, pt in bed, call light in reach and all needs met. Education OT Patient Education: Correct positioning, Energy conservation, Exercise program, Modified ADL techniques, Progress toward Goal/Update tx plan, Purpose of tx/functional activities, Rehab process Teaching Recipient: Patient Teaching Methods: Demonstration, Discussion Response to Teaching: Verbalize Understanding, Return Demonstration OT Nursing Home Goals Nursing Home Goals Time Frame: May 26, 2022 Eating (QC): 6 Oral Hygiene (QC): 6 Toileting Hygiene (QC): 6 Shower/Bathe Self (QC): 6 Upper Body Dressing (QC): 6 Lower Body Dressing (QC): 6 On/Off Footwear (QC): 6 Additional Goals: 1-Demonstrate ADL Tasks, 2-Verbalize Understanding, 3- ImproveStrength/Niya 1=Demonstrate adherence to instructed precautions during ADL tasks. 2=Patient will verbalize/demonstrate understanding of assistive devices/modifications for ADL. 3=Patient will improve strength/tolerance for activity to enable patient to perform ADL's. OT Education/Plan Problem List/Assessment Assessment: Decreased Activ Tolerance, Decreased UE Strength, Impaired I ADL's, Impaired Self-Care Skills Discharge Recommendations Plan/Recommendations: Continue POC Treatment Plan/Plan of Care Patient would benefit from OT for education, treatment and training to promote independence in ADL's, mobility, safety and/or upper extremity function for ADL's. Plan of Care: ADL Retraining, Functional Mobility, UE Funct Exercise/Act Treatment Duration: May 26, 2022 Frequency: 3 times per week (3-5 times per week) Time/GCodes Start Time: 11:33 Stop Time: 11:41 Total Time Billed (hr/min): 8 Billed Treatment Time 1, VERONICA ALBERTO OT May 16, 2022 11:57
[2022-05-16] MEDS ORDERED: LIDOCAINE UROJET 2% GEL 10 ML PKG TOP NR (12:00)
--- NOTE | 2022-05-16 13:28 | Physical Therapy Evaluation ---
PT Evaluation-General Medical Diagnosis Admission Date May 12, 2022 at 19:26 Medical Diagnosis: cellulitis of R leg, RML PNA Onset Date: May 12, 2022 Therapy Diagnosis Therapy Diagnosis: impaired mobility Precautions Precautions/Isolations: Fall Prevention, Standard Precautions, Pressure Ulcer Referral Physician: Ally Reynolds DO Reason for Referral: Evaluation/Treatment Medical History Additional Medical History Past Medical History Cardiac: Atrial Fibrillation, High Cholesterol, Hypertension Neurological: Stroke History of Blood Disorders: No Reviewed History: Yes Social History Home: Single Level Current Living Status: Spouse Entry Into Home: Stairs Without Railing PT Steps Into Home: 2 Prior Prior Level of Function SCALE: Activities may be completed with or without assistive devices. 2-Opunuexjyk-udwzhzn completes the activity by him/herself with no assistance from a helper. 5-Set-up or Clean-up Assistance-helper sets up or cleans up; patient completes activity. [place] assists only prior to or following the activity. 4-Supervision or Touching Assistance-helper provides verbal cues and/or touching/steadying and/or contact guard assistance as patient completes activity. Assistance may be provided throughout the activity or intermittently. 3-Partial/Moderate Assistance-helper does LESS THAN HALF the effort. [place] lifts, holds or supports trunk or limbs, but provides less than half the effort. 2-Substantial/Maximal Assistance-helper does MORE THAN HALF the effort. [place] lifts or holds trunk or limbs and provides more than half the effort. 6-Fzkcbmeht-ekuavn does ALL the effort. Patient does none of the effort to complete the activity. Or, the assistance of 2 or more helpers is required for the patient to complete the activity. If activity was not attempted, code reason: 7-Patient Refused. 9-Not Applicable-not attempted and the patient did not perform the activity before the current illness, exacerbation or injury. 10-Not Attempted due to Environmental Limitations-(lack of equipment, weather restraints, etc.). 88-Not Attempted due to Medical Conditions or Safety Concerns. Bed Mobility: 6 Transfers (B,C,W/C): 6 Gait: 6 Stairs: 6 Indoor Mobility (Ambulation): Independent Stairs: Independent PT Evaluation-Current Subjective Patient in bed pre tx, agrees to PT, has 3/10 pain in right leg, very lethargic. Pt/Family Goals to be independent at home Objective Patient Orientation: Person, Place, Situation Attachments: Oxygen, Landry Catheter, IV ROM/Strength ROM Lower Extremities limited due to severe edema Sensory Hearing: Functional Hand Dominance: Right Sensation Right Lower Extremit: Impaired Sensation Lower Extremities patient reports some numbness/tingling in right leg Transfers Roll Left to Right (QC): 3 Sit to Lying (QC): 3 Lying to Sitting/Side of Bed(Q: 3 Sit to Stand (QC): 3 Min assist for supine to sit, min assist for sit to stand, patient was able to take a few sidesteps to the head of the bed but he was very unsteady and had trouble getting his feet off the floor, mostly slide them a few inches at a time, sat back down, mod assist for sit to supine, he scoots up in bed with inclined bed. Balance Sitting Static: Fair Sitting Dynamic: Fair Standing Static: Poor Standing Dynamic: Poor Treatment BLE exercises x20 (AP, HS) Assessment/Needs Patient in bed post tx with nurse call, phone, tray, all needs met. Patient has impaired mobility, strength, endurance, severe swelling in BLE. Needs assist for supine <-> sit and sit <->stand, he was not able to take more than a few steps. Rehab Potential: Guarded PT Business Consultant Goals Snf Goals PT Snf Goals Time Frame: May 23, 2022 Roll Left & Right (QC): 4 Sit to Lying (QC): 4 Lying-Sitting on Side/Bed(QC): 4 Sit to Stand (QC): 4 Chair/Wxk-tz-Tssof Xfer(QC): 4 Walk 10 feet (QC): 4 PT Plan Problem List Problem List: Activity Tolerance, Functional Strength, Safety, Balance, Gait, Transfer, Bed Mobility, ROM Treatment/Plan Treatment Plan: Continue Plan of Care Treatment Plan: Bed Mobility, Education, Functional Activity Niya, Functional Strength, Gait, Safety, Therapeutic Exercise, Transfers Treatment Duration: May 23, 2022 Frequency: 6 times per week Estimated Hrs Per Day: .25 hour per day Patient and/or Family Agrees t: Yes Safety Risks/Education Patient Education: Correct Positioning, Safety Issues Teaching Recipient: Patient Teaching Methods: Demonstration, Discussion Response to Teaching: Reinforcement Needed Discharge Recommendations Plan Patient will perform bed mobility and transfer training, balance and endurance training, functional strengthening, stair training, gait training, and educat ion, to improve functional mobility and independence at home. Therapy Discharge Recommendati: Scheduled Assistance, Home & Family, Post Acute PT Time/GCodes Time In: 1259 Time Out: 1313 Total Billed Treatment Time: 14 Total Billed Treatment 1 visit EKATEIRNA HERNANDEZ PT May 16, 2022 13:28
[2022-05-17 04:34] LABS: BASOPHILS % (AUTO) 0 % (0-10); MEAN CORPUSCULAR HGB CONC 32 g/dL (32-36); MEAN CORPUSCULAR VOLUME 94 fL (80-99); PLATELET COUNT 73 10^3/uL (130-400)
[2022-05-17 04:35] LABS: EOSINOPHILS % (AUTO) 0 % (0-10); HEMATOCRIT 38 % (40-54); LYMPHOCYTES # (AUTO) 0.9 10^3/uL (1.0-4.0); LYMPHOCYTES % (AUTO) 10 % (12-44); MEAN CORPUSCULAR HEMOGLOBIN 30 pg (25-34); MONOCYTES # (AUTO) 0.3 10^3/uL (0.0-1.0); MONOCYTES % (AUTO) 4 % (0-12); NEUTROPHILS # (AUTO) 7.7 10^3/uL (1.8-7.8); NEUTROPHILS % (AUTO) 86 % (42-75); WHITE BLOOD COUNT 8.9 10^3/uL (4.3-11.0)
[2022-05-17 04:46] LABS: ALBUMIN 2.8 GM/DL (3.2-4.5); POTASSIUM 3.8 MMOL/L (3.6-5.0)
[2022-05-17 04:49] LABS: TOTAL PROTEIN 6.5 GM/DL (6.4-8.2)
[2022-05-17 04:51] LABS: BILIRUBIN,TOTAL 2.1 MG/DL (0.1-1.0)
[2022-05-17 04:52] LABS: PHOSPHORUS 3.2 MG/DL (2.3-4.7)
[2022-05-17 04:53] LABS: CREATININE SERUM 1.69 MG/DL (0.60-1.30)
[2022-05-17 04:55] LABS: MAGNESIUM 2.2 MG/DL (1.6-2.4)
[2022-05-17] MEDS: POTASSIUM CL 10MEQ/50ML IVPB 50 ML IV SCH (06:32)
[2022-05-17] MEDS: MAGNESIUM 1 GM/100 ML IVPB 100 ML IV SCH (06:33)
[2022-05-17] MEDS: KCL 20 MEQ TAB (K-DUR) PO SCH (06:33)
[2022-05-17] MEDS: RT-ALBUTEROL SULF 2.5 MG/3 ML PRE-MIX VIAL INH SCH ×2 (06:45→21:33)
[2022-05-17] MEDS: NOREPINEPHRINE 8 MG/250 ML 250 ML IV SCH ×2 (07:00→18:29)
[2022-05-17] MEDS: FUROSEMIDE 40 MG/4 ML INJ (LASIX) IVP SCH ×2 (07:01→17:33)
--- NOTE | 2022-05-17 07:21 | Diagnostic Imaging Report ---
Indication: Dyspnea Frontal chest obtained at 0556 a.m. compared 05/16/2022. There is cardiomegaly. There is central vascular congestion with patchy bilateral infiltrates appearing similar to the prior study. There is no pneumothorax or gross pleural fluid. Right IJ catheter is unchanged. Impression: Cardiomegaly and central vascular congestion with unchanged patchy bilateral infiltrates. Dictated by: Dictated on workstation # [id number]
[2022-05-17] MEDS: VASOPRESSIN INJECTION 20 UNIT in NS (IVPB) 100 ML IV SCH ×2 (07:56→18:52)
--- NOTE | 2022-05-17 08:31 | Cardiology Progress Note ---
Subjective Date Seen by Provider: May 17, 2022 Time Seen by Provider: 08:30 Subjective/Events-last exam Patient was seen at bedside, laying down comfortably Still lethargic, tachycardic and borderline hypotensive. Review of Systems General: No Chills, No Night Sweats; Fatigue, Malaise; No Appetite, No Other HEENT: No Head Aches, No Visual Changes, No Eye Pain, No Ear Pain, No Dysphasia, No Sinus Congestion, No Post Nasal Drip, No Sore Throat, No Other Pulmonary: Dyspnea; No Cough, No Pleuritic Chest Pain, No Other Focused Exam Time of Focused Exam: 17:00 Objective-Cardiology Exam Last Set of Vital Signs Vital Signs 05/12/22 05/17/22 05/17/22 05/17/22 05/17/22 20:54 06:00 06:46 07:56 08:00 Temp 35.7 Pulse 125 Resp 22 B/P (MAP) 99/70 Pulse Ox 98 O2 Delivery Nasal Cannula O2 Flow Rate 2.00 FiO2 21 I&O Intake and Output 05/17/22 00:00 Intake Total 2683.29 ml Output Total 2025 ml Balance 658.29 ml Intake Oral 1285 ml IV Total 1398.29 ml Output Urine Total 2025 ml # Bowel Movements 2 General: Alert, Oriented X3, Cooperative, No Acute Distress Lungs: Clear to Auscultation, Normal Air Movement Heart: Normal S1, Normal S2, No Murmurs, Other (Atrial fibrillation) Extremities: No Clubbing, Other (edema) Skin: No Rashes Neuro: Normal Gait, Normal Speech, Strength at 5/5 X4 Ext, Normal Tone Psych/Mental Status: Mental Status NL, Mood NL Results Lab Laboratory Tests 05/17/22 04:20 A/P-Cardiology Admission Diagnosis Septic shock Acute left ventricular systolic dysfunction, nonischemic cardiomyopathy Atrial fibrillation Cellulitis Assessment/Plan Right leg cellulitis/fasciitis, managed by primary care physician Septic shock, hypotension. Receiving antibiotics. Maintained on Levophed. Trying to wean him off all pressors and monitor tolerance and response Atrial fibrillation, tachycardia. History of paroxysmal atrial fibrillation, had KERRY and cardioversion in 2019. Was back in atrial fibrillation as a persistent atrial fibrillation, has been refusing cardioversion Intolerant to Multaq Currently borderline hypotensive, I am planning to do KERRY with electrical cardioversion Congestive heart failure, acute left ventricular systolic dysfunction 2D echo was done on May 14, 2022 showing dilated left ventricle with ejection fraction 25 to 30%, diffuse hypokinesia, grade 2 diastolic dysfunction, biatrial enlargement, moderate mitral regurgitation, PA pressure 40 to 45 mmHg Probably nonischemic cardiomyopathy, last stress test was done in May 2020 showing no significant ischemia or infarction Probably heart failure secondary to tachycardia Started on diuretics, continue to monitor closely [id number] score of 2, has been maintained on Xarelto. Did not receive anticoagulation on this admission. I started Lovenox and will monitor platelets Thrombocytopenia, worsening, monitor platelets and H&H while receiving Lovenox Elevated liver enzymes, monitor liver functions Acute renal insufficiency, renal function are better. History of syncope and fall from a ladder with subarachnoid hemorrhage in May 2020. Treated at . Stress test done in May 2020 showing no significant ischemia or infarction, at that time his echo was normal. AUDELIA BEARD MD May 17, 2022 08:31
--- NOTE | 2022-05-17 08:32 | Cardiac Procedure Note-CS/ASA ---
Pre-Procedure Note Pre-Op Procedure Note Date of Available H&P: May 17, 2022 Date H&P Reviewed: May 17, 2022 Time H&P Reviewed: 08:32 History & Physical: H&P Reviewed, Patient Examed, No changes noted Pre-Operative Diagnosis: Atrial fibrillation Conscious Sedation Pre-Proced Time 08:32 ASA Score 3 For ASA 3 and 4: Consider anesthesia and medical clearance. Also, for patients with a history of failed moderate sedation consider anesthesia. Airway Lungs Heart ASA score ASA 1: a normal healthy patient ASA 2: a patient with a mild systemic disease (mid diabetes, controlled hypertension, obesity ASA 3: a patient with a severe systemic disease that limits activity (angina, COPD, prior Myocardial infarction) ASA 4: a patient with an incapacitating disease that is a constant threat to life (CHF, renal failure) ASA 5: a moribund patient not expected to survive 24 hrs. (ruptured aneurysm) ASA 6: a declared brain- patient whose organs are being harvested. For emergent operations, add the letter E after the classification Mallampati Classification Grade 3 Sedation Plan Analgesia, Amnesia, Plan communicated to team members, Discussed options with patient/fam, Discussed risks with patient/fam The patient is an appropriate candidate to undergo the planned procedure, sedation, and anesthesia. The patient immediately re-assessed prior to indication. AUDELIA BEARD MD May 17, 2022 08:32
[2022-05-17] MEDS ORDERED: LIDOCAINE 2% VISCOUS 15 ML UDC ONE (08:59)
[2022-05-17] MEDS: DOCUSATE SODIUM 100 MG (COLACE) CAP PO SCH ×3 (09:00→21:00)
[2022-05-17] MEDS: SENNOSIDES 8.6 MG (SENOKOT) TAB PO SCH ×3 (09:00→21:00)
--- NOTE | 2022-05-17 09:32 | Tele-ICU Progress Note ---
Subjective Date Seen by a Provider: May 17, 2022 Time Seen by a Provider: 09:31 Subjective/Events-last exam (Tele-ICU Physician , Progress Note ) Available chart/ vitals / labs / Images reviewed Video assessment done using teleICU camera, rest of exam as per RN Discussed with RN Events overnight : Afebrile hemodynamically stable Respiratory - 2l I/O = pos Drips: off Pressors- levo vaso Consultants: cards Hospital course: (05/12) 67/M admitted s/p fall, septic shock, RLE cellulitis/pain, unable to ambulate. CHF vs PNA--Recent COVID on 04/07. ARF. Coagulopathic (05/13) Renals slightly worse again w/hyperkalemia, remains coagulopathic 05/15- ECHO 05/15 EF 25% , gdII dst dsfnc . 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 delutional vs due to Zosyn ?,follow closely Recent COVID 03/2022 - on O2 at home h/o SAH in 2019 , s/p syncope and fall off a ladder Lines : R IJ 05/12 , (Central Line Necessity Reviewed) Landry: + OG: Nutrition: Po Analgesia: Anxiety/ delirium VTE Prophylaxis: lovenox full dose Stress Ulcer Prophylaxis: na Plans in collaboration with bedside consultants and IM MDs. Discussed with RN to reach out if any questions or concerns A total of 31 minutes of critical care time was devoted to this patient today, required to treat and/or prevent further deterioration of critical care condition ( as above ) . Sepsis Event Evaluation Height, Weight, BMI Height: '" Weight: lbs. oz. kg; 39.13 BMI Method: Focused Exam Time of Focused Exam: 17:00 Exam Exam Patient acknowledged, consented, and participated in this virtual visit which was conducted using real time audio/video Vital Signs Date Time Temp Pulse Resp B/P (MAP) Pulse Ox O2 Delivery O2 Flow Rate FiO2 05/17/22 08:00 35.7 05/17/22 08:00 98 23 95/72 (80) 97 Nasal Cannula 2.00 05/17/22 07:56 125 99/70 05/17/22 07:40 99 05/17/22 07:00 95 22 85/61 (69) 97 Nasal Cannula 2.00 05/17/22 06:46 98 Nasal Cannula 2.00 05/17/22 06:00 125 22 99/70 (76) 97 Nasal Cannula 2.00 05/17/22 05:00 107 23 98/82 (89) 97 Nasal Cannula 2.00 05/17/22 04:01 36.1 05/17/22 04:00 Nasal Cannula 2.00 05/17/22 04:00 103 20 102/85 (92) 97 Nasal Cannula 2.00 05/17/22 03:00 104 22 117/100 (107) 97 Nasal Cannula 2.00 05/17/22 02:00 112 14 100/86 (93) 96 Nasal Cannula 2.00 05/17/22 01:00 110 05/17/22 01:00 110 21 109/92 (98) 97 Nasal Cannula 2.00 05/17/22 00:01 36.0 05/17/22 00:00 Nasal Cannula 2.00 05/17/22 00:00 99 16 111/93 (100) 98 Nasal Cannula 2.00 05/16/22 23:38 Nasal Cannula 2.00 05/16/22 23:00 105 12 106/85 (97) 97 Nasal Cannula 2.00 05/16/22 22:10 103 101/87 05/16/22 22:09 105 101/87 05/16/22 22:00 103 18 101/87 (90) 94 Nasal Cannula 2.00 05/16/22 21:00 112 18 107/88 (93) 94 Nasal Cannula 2.00 05/16/22 20:35 35.7 96 92 9/6/22 20:00 35.6 05/16/22 20:00 121 21 112/76 (84) 95 Nasal Cannula 2.00 05/16/22 20:00 Nasal Cannula 2.00 05/16/22 19:00 123 15 86/74 (78) 94 Nasal Cannula 2.00 05/16/22 19:00 123 05/16/22 18:00 101 24 93/81 (85) 99 Nasal Cannula 2.00 05/16/22 17:00 110 17 95/75 (82) 96 Nasal Cannula 2.00 05/16/22 16:00 96 23 99/76 (84) 99 Nasal Cannula 2.00 05/16/22 16:00 Nasal Cannula 2.00 05/16/22 16:00 35.7 05/16/22 15:00 92 14 103/88 (93) 97 Nasal Cannula 2.00 05/16/22 14:00 96 17 99/71 (80) 97 Nasal Cannula 2.00 05/16/22 13:18 110 05/16/22 13:00 111 17 103/77 (86) 97 Nasal Cannula 2.00 05/16/22 12:00 110 15 111/86 (94) 96 Nasal Cannula 2.00 05/16/22 12:00 Nasal Cannula 2.00 05/16/22 12:00 36.0 05/16/22 11:00 120 17 101/77 (85) 96 Nasal Cannula 2.00 05/16/22 10:00 111 9 102/91 (95) 96 Nasal Cannula 2.00 I & O 05/17/22 07:00 Intake Total 1574.87 ml Output Total 2225 ml Balance -650.13 ml Height & Weight Height: '" Weight: lbs. oz. kg; 39.13 BMI Method: General Appearance: No Apparent Distress, Chronically ill, Obese HEENT: PERRL/EOMI Neck: Non Tender, Supple (only left side exmined, central line on right) Respiratory: No Accessory Muscle Use, No Respiratory Distress, Decreased Breath Sounds (bilateral bases); No Wheezing Cardiovascular: Irregularly Irregular, Tachycardia Capillary Refill: Less Than 3 Seconds Peripheral Pulses: 1+ Dorsalis Pedis (R); 2+ Left Dors-Pedis (L), 2+ Radial Pulses (R), 2+ Radial Pulses (L) Gastrointestinal: non tender, soft Extremity: Calf Tenderness (right calf, rated 3 out of 10), Pedal Edema (3+ b/l), Other (able to expel fluid from RLE by applying pressure around lesions) Neurologic/Psychiatric: Alert, Oriented x3 Skin: Cool, Pallor, Other (erythema and edema of RLE up to knee appears improved; with calf draining wound and surrounding excoriations with honey colored drainage) Lymphatic: No Adenopathy Results Lab Laboratory Tests 05/16/22 05:10 05/17/22 04:20 Assessment/Plan Assessment/Plan 1 LAZARO SINGH MD May 17, 2022 09:31
[2022-05-17] MEDS ORDERED: proPOfol 200 MG/20 ML (DIPRIVAN) VIAL IV ONE (10:15)
--- NOTE | 2022-05-17 10:59 | Cardioversion ---
Cardioversion PROCEDURE PHYSICIAN: Audelia Uribe DATE OF PROCEDURE: 05/17/22 DIRECT EXTERNAL ELECTRICAL CARDIOVERSION: Indications: Atrial Fibrillation with rapid ventricular rate Preoperative diagnoses: Atrial Fibrillation with rapid ventricular rate Postoperative diagnosis: Sinus rhythm, Successful Electrical Cardioversion Anesthesia: By Anesthesia services Complications: None Specimen: None Contrast: 0 Flouroscopy: none Procedure Details: The patient was brought the research lab assistant after informed consent was taken, all the risks and complications were explained including the risk of stroke. Electrical cardioversion was carried out with anesthesia support with propofol. 200 joules of synchronized shock was delivered through external patches which promptly restored sinus rhythm. The patient tolerated the procedure well. Conclusions: Successful electrical cardioversion and terminating atrial fibrillation AUDELIA URIBE MD May 17, 2022 10:59
[2022-05-17] MEDS ORDERED: AMIODARONE FOR BOLUS 150 MG in NS (IVPB) 100 ML IV ONE (11:00)
[2022-05-17] MEDS: AMIODARONE INJECTION 450 MG in NORMAL SALINE 250 ML IV SCH ×2 (11:09→18:36)
[2022-05-17] MEDS: cefTRIAXone 2,000 MG/NS 50 ML IVPB IV SCH ×2 (11:19)
[2022-05-17] MEDS: ENOXAPARIN 120 MG/0.8 ML (LOVENOX) SQ SCH ×2 (11:19→20:32)
[2022-05-17] MEDS: DIGOXIN 0.25 MG (LANOXIN) TAB PO SCH (11:20)
--- NOTE | 2022-05-17 12:01 | Occ Therapy Progress Note ---
Therapy Progress Note OT tx attempted, but pt declined services at this time. Pt returned from procedure, and would like to rest at this time. OT offered ADLs and UE exercises, and informed pt about purpose and benefit of OT, but he continued to decline. OT will attempt tx again tomorrow. 1, visit 1150 VERONICA SHEPPARD OT May 17, 2022 12:01
--- NOTE | 2022-05-17 12:57 | Anesthesia-General Post-Op ---
MAC Patient Condition Mental Status/LOC: Same as Preop Cardiovascular: Satisfactory Nausea/Vomiting: Absent Respiratory: Satisfactory Pain: Controlled Complications: Absent Post Op Complications Complications None Follow Up Care/Instructions Patient Instructions None needed. Anesthesiology Discharge Order Discharge Order Patient is doing well, no complaints, stable vital signs, no apparent adverse anesthesia problems. No complications reported per nursing. KAMILLE EPPERSON CRNA May 17, 2022 12:57
--- NOTE | 2022-05-17 13:30 | Progress Note ---
ARAMIS FONTENOT 05/17/22 1330: Subjective Date Seen by a Provider: May 17, 2022 Time Seen by a Provider: 13:25 Subjective/Events-last exam Blood Pressure continues to be hypotensive. RLE with some drainage today. Patient denies any chest pain or shortness of breath. Also denies fever, chills. CXR this morning shows bilateral patchy infiltrates consistent with previous CXR. Focused Exam Time of Focused Exam: 17:00 Objective Exam Last Set of Vital Signs Vital Signs Date Time Temp Pulse Resp B/P (MAP) Pulse Ox O2 Delivery O2 Flow Rate FiO2 05/17/22 11:28 68 05/17/22 11:09 95/72 05/17/22 11:00 13 96 Nasal Cannula 2.00 05/17/22 08:00 35.7 05/12/22 20:54 21 Capillary Refill : Less Than 3 Seconds I&O Intake and Output 05/17/22 00:00 Intake Total 2683.29 ml Output Total 2025 ml Balance 658.29 ml Intake Oral 1285 ml IV Total 1398.29 ml Output Urine Total 2025 ml # Bowel Movements 2 General: Cooperative, No Acute Distress HEENT: Mucous Memb Moist/[place] Neck: No JVD Lungs: Normal Air Movement Heart: Other (tachycardia with Afib) Abdomen: Soft, No Tenderness Skin: Other (RLE cellulitis of the calf area, with some serous drainage ) Results Lab Laboratory Tests 05/17/22 04:20: White Blood Count 8.9, Red Blood Count 4.01L, Hemoglobin 12.0L, Hematocrit 38L, Mean Corpuscular Volume 94, Mean Corpuscular Hemoglobin 30, Mean Corpuscular Hemoglobin Concent 32, Red Cell Distribution Width 17.0H, Platelet Count 73L, Mean Platelet Volume 10.0, Immature Granulocyte % (Auto) 0, Neutrophils (%) (Auto) 86H, Lymphocytes (%) (Auto) 10L, Monocytes (%) (Auto) 4, Eosinophils (%) (Auto) 0, Basophils (%) (Auto) 0, Neutrophils # (Auto) 7.7, Lymphocytes # (Auto) 0.9L, Monocytes # (Auto) 0.3, Eosinophils # (Auto) 0.0, Basophils # (Auto) 0.0, Immature Granulocyte # (Auto) 0.0, Percent Immature Platelet Fraction 2.3, Sodium Level 138, Potassium Level 3.8, Chloride Level 104, Carbon Dioxide Level 20L, Anion Gap 14, Blood Urea Nitrogen 44H, Creatinine 1.69H, Estimat Glomerular Filtration Rate 44, BUN/Creatinine Ratio 26, Glucose Level 156H, Calcium Level 8.0L, Corrected Calcium 9.0, Phosphorus Level 3.2, Magnesium Level 2.2, Total Bilirubin 2.1H, Aspartate Amino Transf (AST/SGOT) 27, Alanine Aminotransferase (ALT/SGPT) 37, Alkaline Phosphatase 69, Total Protein 6.5, Albumin 2.8L Microbiology 05/12/22 MRSA Screen - Final, Complete MRSA not isolated 05/12/22 Urine Culture - Final, Complete NO GROWTH 05/12/22 Blood Culture - Preliminary, Resulted No growth 05/12/22 Gram Stain - Final, Complete 05/12/22 Wound Culture - Final, Complete Serratia marcescens Gram Pos Mixed Bacterial Janae Assessment/Plan Assessment/Plan Assess & Plan/Chief Complaint Assessment: Cardiogenic shock Pulmonary Hypertension with Mitral Regurgitation Heart Failure due to Afib Acute on chronic respiratory failure Pneumonia Right lower extremity cellulitis Acute kidney injury Anasarca Atrial fibrillation w/RVR now much improved Recent COVID Central line required due to critical illness Coagulopathy due to Eliquis and acute renal failure Chronic hypoxia supplemental oxygen required since last admit Plan: Broad-spectrum antibiotics Monitor creatinine closely Cardiology and eICU consult Supportive care Prognosis guarded Patient remains critically ill Clinical Quality Measures DVT/VTE Risk/Contraindication: Contraindications-Mechi: Other *list below* Other: cellulitis legs ALLY KENNEDY DO 05/17/222036: Subjective Subjective/Events-last exam Pt is severely declined Echocardiogram shows 20% nonischemic cardiomyopathy diagnosed Cardioversion today will hopefully help pumping action of his heart KERRY was performed Moderate to severe mitral regurgitation noted Prognosis guarded Objective Exam General: Alert, Oriented X3, Cooperative Lungs: Clear to Auscultation Psych/Mental Status: Mental Status NL Assessment/Plan Assessment/Plan Assess & Plan/Chief Complaint KERRY Cardioversion CHF management Supervisory-Addendum Brief Verification & Attestation Participated in pt care: history, MDM, physical Personally performed: exam, history, MDM, supervision of care Care discussed with: Medical Student Procedures: n/a Results interpretation: Verified all documentation Verification and Attestation of Medical Student E/M Service A medical student performed and documented this service in my presence. I reviewed and verified all information documented by the medical student and made modifications to such information, when appropriate. I personally performed the physical exam and medical decision making. Ally Kennedy, May 17, 2022,20:36 ARAMIS FONTENOT May 17, 2022 13:30 ALYL KENNEDY DO May 17, 2022 20:37
--- NOTE | 2022-05-17 14:58 | Physical Therapy Daily Note ---
PT Daily Note-Current Subjective Pt laying Supine in bed upon arrival. Pt agrees to PT but reports having TE this morning so doesn't know how much he can do. Pain Location: No Pain Reported Mental Status Patient Orientation: Person, Place, Situation Attachments: Oxygen, [place]ry Catheter, IV Transfers SCALE: Activities may be completed with or without assistive devices. 0-Gbfjpknyat-bdpeflz completes the activity by him/herself with no assistance from a helper. 5-Set-up or Clean-up Assistance-helper sets up or cleans up; patient completes activity. [place] assists only prior to or following the activity. 4-Supervision or Touching Assistance-helper provides verbal cues and/or touching/steadying and/or contact guard assistance as patient completes activity. Assistance may be provided throughout the activity or intermittently. 3-Partial/Moderate Assistance-helper does LESS THAN HALF the effort. [place] lifts, holds or supports trunk or limbs, but provides less than half the effort. 2-Substantial/Maximal Assistance-helper does MORE THAN HALF the effort. [place] lifts or holds trunk or limbs and provides more than half the effort. 6-Rmcjlwmyd-ehbmbj does ALL the effort. Patient does none of the effort to complete the activity. Or, the assistance of 2 or more helpers is required for the patient to complete the activity. If activity was not attempted, code reason: 7-Patient Refused. 9-Not Applicable-not attempted and the patient did not perform the activity befo re the current illness, exacerbation or injury. 10-Not Attempted due to Environmental Limitations-(lack of equipment, weather re straints, etc.). 88-Not Attempted due to Medical Conditions or Safety Concerns. Exercises Supine Ex: Ankle pumps, Quad Set, Glut sets, Heel Slides, Straight leg raise, Hip abd/add Supine Reps: 10 Treatments Pt completes Supine Ex with instruction. Pt resting in bed at end of tx with all needs met,call light in hand. Assessment Current Status: Fair Progress Pt fatigues easily but tx is limited due to TE given earlier in day. PT Senior Care Goals Peer Educator Goals PT Senior Care Goals Time Frame: May 23, 2022 Roll Left & Right (QC): 4 Sit to Lying (QC): 4 Lying-Sitting on Side/Bed(QC): 4 Sit to Stand (QC): 4 Chair/Cyu-fy-Zwmvd Xfer(QC): 4 Walk 10 feet (QC): 4 PT Plan Problem List Problem List: Activity Tolerance, Functional Strength Treatment/Plan Treatment Plan: Continue Plan of Care Treatment Plan: Bed Mobility, Education, Functional Activity Niya, Functional Strength, Gait, Safety, Therapeutic Exercise, Transfers Treatment Duration: May 23, 2022 Frequency: 6 times per week Estimated Hrs Per Day: .25 hour per day Patient and/or Family Agrees t: Yes Time/GCodes Time In: 1426 Time Out: 1444 Total Billed Treatment Time: 18 Total Billed Treatment 1, EX (18m) LAURA MARIA GARMENT CUTTER May 17, 2022 14:58
[2022-05-18 04:07] LABS: BASOPHILS % (AUTO) 0 % (0-10); MEAN CORPUSCULAR HGB CONC 32 g/dL (32-36)
[2022-05-18 04:09] LABS: EOSINOPHILS % (AUTO) 0 % (0-10); HEMATOCRIT 37 % (40-54); HEMOGLOBIN 11.7 g/dL (13.3-17.7); LYMPHOCYTES # (AUTO) 0.8 10^3/uL (1.0-4.0); LYMPHOCYTES % (AUTO) 11 % (12-44); MEAN CORPUSCULAR HEMOGLOBIN 30 pg (25-34); MEAN CORPUSCULAR VOLUME 93 fL (80-99); MEAN PLATELET VOLUME 10.7 fL (9.0-12.2); MONOCYTES # (AUTO) 0.4 10^3/uL (0.0-1.0); MONOCYTES % (AUTO) 5 % (0-12); NEUTROPHILS # (AUTO) 6.1 10^3/uL (1.8-7.8); NEUTROPHILS % (AUTO) 84 % (42-75); PLATELET COUNT 57 10^3/uL (130-400); WHITE BLOOD COUNT 7.3 10^3/uL (4.3-11.0)
[2022-05-18 04:16] LABS: ALBUMIN 2.8 GM/DL (3.2-4.5); POTASSIUM 3.5 MMOL/L (3.6-5.0)
[2022-05-18 04:18] LABS: TOTAL PROTEIN 6.4 GM/DL (6.4-8.2)
[2022-05-18 04:20] LABS: BILIRUBIN,TOTAL 1.9 MG/DL (0.1-1.0)
[2022-05-18 04:21] LABS: PHOSPHORUS 3.3 MG/DL (2.3-4.7)
[2022-05-18 04:22] LABS: CREATININE SERUM 1.72 MG/DL (0.60-1.30)
[2022-05-18 04:25] LABS: MAGNESIUM 2.1 MG/DL (1.6-2.4)
[2022-05-18] MEDS: MAGNESIUM 1 GM/100 ML IVPB 100 ML IV SCH (05:01)
[2022-05-18] MEDS: KCL 20 MEQ TAB (K-DUR) PO SCH (05:01)
[2022-05-18] MEDS: POTASSIUM CL 10MEQ/50ML IVPB 50 ML IV SCH ×3 (05:02→05:53)
[2022-05-18] MEDS: VASOPRESSIN INJECTION 20 UNIT in NS (IVPB) 100 ML IV SCH ×2 (05:54→16:53)
[2022-05-18] MEDS: NOREPINEPHRINE 8 MG/250 ML 250 ML IV SCH ×2 (06:47→18:25)
[2022-05-18] MEDS: RT-ALBUTEROL SULF 2.5 MG/3 ML PRE-MIX VIAL INH SCH ×2 (07:07→21:56)
[2022-05-18 08:01] VITALS: BP 90/73
--- NOTE | 2022-05-18 08:30 | Diagnostic Imaging Report ---
EXAMINATION: Chest 1 view HISTORY: Dyspnea COMPARISON: 05/17/2022 FINDINGS: Heart size is mildly enlarged. Right-sided IJ central line is unchanged. There are low lung volumes with patchy interstitial opacities seen throughout both lungs. No significant pleural effusion or pneumothorax. The osseous structures are intact. IMPRESSION: 1. Stable low lung volumes and cardiomegaly with diffuse interstitial opacities. Dictated by: Dictated on workstation # [id number]
--- NOTE | 2022-05-18 08:30 | Cardiology Progress Note ---
Subjective Date Seen by Provider: May 18, 2022 Time Seen by Provider: 08:29 Subjective/Events-last exam Patient was seen at bedside, laying down comfortably, feeling better. No new complaint Review of Systems General: No Chills, No Night Sweats; Fatigue; No Malaise, No Appetite, No Other HEENT: No Head Aches, No Visual Changes, No Eye Pain, No Ear Pain, No Dysphasia , No Sinus Congestion, No Post Nasal Drip, No Sore Throat, No Other Pulmonary: No Dyspnea, No Cough, No Pleuritic Chest Pain, No Other Cardiovascular: No: Chest Pain, Palpitations, Orthopnea, Paroxysmal Noc. Dyspnea, Edema, Lt Headedness, Other Focused Exam Time of Focused Exam: 17:00 Objective-Cardiology Exam Last Set of Vital Signs Vital Signs 05/18/22 05/18/22 05/18/22 05/18/22 05/18/22 03:00 06:00 07:08 08:01 08:13 Temp 36.0 Pulse 71 Resp 29 B/P (MAP) 101/72 (81) Pulse Ox 95 O2 Delivery High Flow N/C O2 Flow Rate 2.00 FiO2 28 I&O Intake and Output 05/18/22 00:00 Intake Total 1029.00 ml Output Total 3150 ml Balance -2121.00 ml Intake Oral 880 ml IV Total 149.00 ml Output Urine Total 3150 ml # Bowel Movements 2 General: Alert, Oriented X3, Cooperative HEENT: Mucous Memb Moist/[place] Neck: No JVD Lungs: Clear to Auscultation Heart: Regular Rate, Normal S1, Normal S2 Abdomen: Soft, No Tenderness Extremities: No Clubbing, Other (edema) Skin: Other (RLE cellulitis of the calf area, with some serous drainage ) Neuro: Normal Gait, Normal Speech, Strength at 5/5 X4 Ext, Normal Tone Psych/Mental Status: Mental Status NL Results Lab Laboratory Tests 05/18/22 04:00 A/P-Cardiology Admission Diagnosis Septic shock Acute left ventricular systolic dysfunction, nonischemic cardiomyopathy Atrial fibrillation Cellulitis Assessment/Plan Right leg cellulitis/fasciitis, managed by primary care physician Septic shock, hypotension. Receiving antibiotics. Maintained on Levophed. Trying to wean him off all pressors and monitor tolerance and response Atrial fibrillation, tachycardia. History of paroxysmal atrial fibrillation, had KERRY and cardioversion in May 2020. Was back in atrial fibrillation as a persistent atrial fibrillation, has been refusing cardioversion Intolerant to [place] Status post KERRY and electrical cardioversion on May 17, 2022 Maintaining sinus rhythm with occasional PVCs Congestive heart failure, acute left ventricular systolic dysfunction 2D echo was done on May 14, 2022 showing dilated left ventricle with ejection fraction 25 to 30%, diffuse hypokinesia, grade 2 diastolic dysfunction, biatrial enlargement, moderate mitral regurgitation, PA pressure 40 to 45 mmHg Probably nonischemic cardiomyopathy, last stress test was done in May 2020 showing no significant ischemia or infarction Probably heart failure secondary to tachycardia Started on diuretics, continue to monitor closely [id number] score of 2, has been maintained on Xarelto. Did not receive anticoagulation on this admission. I started Lovenox and will monitor platelets Thrombocytopenia, worsening, monitor platelets and H&H while receiving Lovenox Elevated liver enzymes, monitor liver functions Acute renal insufficiency, renal function are better. History of syncope and fall from a ladder with subarachnoid hemorrhage in May 2020. Treated at . Stress test done in May 2020 showing no significant ischemia or infarction, at that time his echo was normal. AUDELIA BEARD MD May 18, 2022 08:30
[2022-05-18] MEDS: DIGOXIN 0.25 MG (LANOXIN) TAB PO SCH (08:51)
[2022-05-18] MEDS: DOCUSATE SODIUM 100 MG (COLACE) CAP PO SCH ×2 (08:51→21:38)
[2022-05-18] MEDS: ENOXAPARIN 120 MG/0.8 ML (LOVENOX) SQ SCH ×2 (08:51→21:38)
[2022-05-18] MEDS: FUROSEMIDE 40 MG/4 ML INJ (LASIX) IVP SCH ×2 (08:51→16:36)
[2022-05-18] MEDS: SENNOSIDES 8.6 MG (SENOKOT) TAB PO SCH ×2 (08:51→21:38)
[2022-05-18] MEDS: cefTRIAXone 2,000 MG/NS 50 ML IVPB IV SCH ×2 (08:51)
--- NOTE | 2022-05-18 10:03 | Anesthesia-General Post-Op ---
MAC Patient Condition Mental Status/LOC: Same as Preop Cardiovascular: Satisfactory Nausea/Vomiting: Absent Respiratory: Satisfactory Pain: Controlled Complications: Absent Post Op Complications Complications None Follow Up Care/Instructions Patient Instructions None needed. Anesthesiology Discharge Order Discharge Order Patient is doing well, no complaints, stable vital signs, no apparent adverse anesthesia problems. No complications reported per nursing. DANNIE FLOR CRNA May 18, 2022 10:03
[2022-05-18] MEDS: AMIODARONE INJECTION 450 MG in NORMAL SALINE 250 ML IV SCH (10:09)
--- NOTE | 2022-05-18 10:11 | Physical Therapy Daily Note ---
PT Daily Note-Current Subjective Patient reluctantly agrees to PT. Patient requires much encouragement to participate. Pain Numeric Pain Scale: 8 Location: Right Location Body Site: Calf Pain Description: Pressure, Sharp Mental Status Patient Orientation: Person, Time, Situation Attachments: Oxygen, [place] Catheter, IV Transfers SCALE: Activities may be completed with or without assistive devices. 7-Bxtdsqcwsy-qbediwv completes the activity by him/herself with no assistance from a helper. 5-Set-up or Clean-up Assistance-helper sets up or cleans up; patient completes activity. [place] assists only prior to or following the activity. 4-Supervision or Touching Assistance-helper provides verbal cues and/or touching/steadying and/or contact guard assistance as patient completes activity. Assistance may be provided throughout the activity or intermittently. 3-Partial/Moderate Assistance-helper does LESS THAN HALF the effort. [place] lifts, holds or supports trunk or limbs, but provides less than half the effort. 2-Substantial/Maximal Assistance-helper does MORE THAN HALF the effort. [place] lifts or holds trunk or limbs and provides more than half the effort. 7-Iwymkgyrv-jhfpsj does ALL the effort. Patient does none of the effort to complete the activity. Or, the assistance of 2 or more helpers is required for the patient to complete the activity. If activity was not attempted, code reason: 7-Patient Refused. 9-Not Applicable-not attempted and the patient did not perform the activity before the current illness, exacerbation or injury. 10-Not Attempted due to Environmental Limitations-(lack of equipment, weather restraints, etc.). 88-Not Attempted due to Medical Conditions or Safety Concerns. Roll Left & Right (QC): 2 Sit to Lying (QC): 2 Lying to Sitting/Side of Bed(Q: 2 Sit to Stand (QC): [address] bed in Trendelenburg to reposition up in bed Exercises Supine Ex: Ankle pumps, Quad Set, Heel Slides, Straight leg raise Supine Reps: 10 (AAROM bilaterally) Seated Therapy Exercises: Long arc quads Seated Reps: 12 Assessment Patient sat EOB for 10 min SBA to maintain. Patient needs much encouragement to increase activity. PT Polysomnography Tech Goals Polysomnography Tech Goals PT Polysomnography Tech Goals Time Frame: May 23, 2022 Roll Left & Right (QC): 4 Sit to Lying (QC): 4 Lying-Sitting on Side/Bed(QC): 4 Sit to Stand (QC): 4 Chair/Igl-zk-Psjce Xfer(QC): 4 Walk 10 feet (QC): 4 PT Plan Treatment/Plan Treatment Plan: Continue Plan of Care Treatment Plan: Bed Mobility, Education, Functional Activity Niya, Functional Strength, Gait, Safety, Therapeutic Exercise, Transfers Treatment Duration: May 23, 2022 Frequency: 6 times per week Estimated Hrs Per Day: .25 hour per day Patient and/or Family Agrees t: Yes Time/GCodes Time In: 730 Time Out: 753 Total Billed Treatment Time: 23 Total Billed Treatment 1 visit FA 10 min EX 13 min AMILCAR MESA PT May 18, 2022 10:11
--- NOTE | 2022-05-18 10:14 | Occupational Ther Daily Note ---
OT Current Status-Daily Note Subjective Pt in bed sleeping, easily awoken and agreeable to OT Tx. ADL-Treatment Therapy Code Descriptions/Definitions Functional [place] Measure: 0=Not Assessed/NA 4=Minimal Assistance 1=Total Assistance 5=Supervision or Setup 2=Maximal Assistance 6=Modified [place] 3=Moderate Assistance 7=Complete IndependenceSCALE: Activities may be completed with or without assistive devices. 5-Mjdtcklnnf-rgmyicu completes the activity by him/herself with no assistance from a helper. 5-Set-up or Clean-up Assistance-helper sets up or cleans up; patient completes activity. Madeline assists only prior to or following the activity. 4-Supervision or Touching Assistance-helper provides verbal cues and/or touching/steadying and/or contact guard assistance as patient completes activity. Assistance may be provided throughout the activity or intermittently. 3-Partial/Moderate Assistance-helper does LESS THAN HALF the effort. Madeline lifts, holds or supports trunk or limbs, but provides less than half the effort. 2-Substantial/Maximal Assistance-helper does MORE THAN HALF the effort. Madeline lifts or holds trunk or limbs and provides more than half the effort. 2-Nhiphbrzj-yewwvx does ALL the effort. Patient does none of the effort to complete the activity. Or, the assistance of 2 or more helpers is required for the patient to complete the activity. If activity was not attempted, code reason: 7-Patient Refused. 9-Not Applicable-not attempted and the patient did not perform the activity before the current illness, exacerbation or injury. 10-Not Attempted due to Environmental Limitations-(lack of equipment, weather restraints, etc.). 88-Not Attempted due to Medical Conditions or Safety Concerns. Eating (QC): 5 Other Treatment Pt in bed, agreeable to OT Tx. Pt's breakfast sitting on bedside table. OT positioned table in front of pt, and he was able to eat his meal after set up assistance. OT positioned items within pt's reach, poured juice over ice, and placed straw in pt's drink. During feeding, pt's O2 dropped to mid 80%'s, with cues, pt returned to 90%'s within a few seconds. Post tx, pt in bed, call light in reach and all needs met. Education OT Patient Education: Correct positioning, Energy conservation, Modified ADL techniques, Progress toward Goal/Update tx plan, Purpose of tx/functional activities Teaching Recipient: Patient Teaching Methods: Discussion Response to Teaching: Verbalize Understanding OT Fdc Goals Fdc Goals Time Frame: May 26, 2022 Eating (QC): 6 Oral Hygiene (QC): 6 Toileting Hygiene (QC): 6 Shower/Bathe Self (QC): 6 Upper Body Dressing (QC): 6 Lower Body Dressing (QC): 6 On/Off Footwear (QC): 6 Additional Goals: 1-Demonstrate ADL Tasks, 2-Verbalize Understanding, 3- ImproveStrength/[place] 1=Demonstrate adherence to instructed precautions during ADL tasks. 2=Patient will verbalize/demonstrate understanding of assistive devices/zachariah fications for ADL. 3=Patient will improve strength/tolerance for activity to enable patient to perform ADL's. OT Education/Plan Problem List/Assessment Assessment: Decreased Activ Tolerance, Decreased UE Strength, Impaired Funct Balance, Impaired I ADL's, Impaired Self-Care Skills Discharge Recommendations Plan/Recommendations: Continue POC Treatment Plan/Plan of Care Patient would benefit from OT for education, treatment and training to promote independence in ADL's, mobility, safety and/or upper extremity function for ADL's. Plan of Care: ADL Retraining, Functional Mobility, UE Funct Exercise/Act Treatment Duration: May 26, 2022 Frequency: 3 times per week (3-5 times per week) Rehab Potential: Guarded Time/GCodes Start Time: 09:47 Stop Time: 09:55 Total Time Billed (hr/min): 8 Billed Treatment Time 1, ADL VERONICA SHEPPARD OT May 18, 2022 10:14
--- NOTE | 2022-05-18 10:37 | Tele-ICU Progress Note ---
Subjective Date Seen by a Provider: May 18, 2022 Time Seen by a Provider: 10:36 Subjective/Events-last exam (Tele-ICU Physician , Progress Note ) Available chart/ vitals / labs / Images reviewed Video assessment done using teleICU camera, rest of exam as per RN Discussed with RN Events overnight : Afebrile hemodynamically stable Respiratory - 2l I/O = pos Drips: off Pressors- levo vaso Consultants: noa Hospital course: (05/12) 67/M admitted s/p fall, septic shock, RLE cellulitis/pain, unable to ambulate. CHF vs PNA--Recent COVID on 04/07. ARF. Coagulopathic (05/13) Renals slightly worse again w/hyperkalemia, remains coagulopathic 05/15- ECHO 05/15 EF 25% , gdII dst dsfnc . RVSP 45 hmmHG 05/16 - levo , vaso - coreg placed on holsd A/P Shock , septic - cotn pressors , decrease hydration ( EF 25 % ) - trying to wean off levo and vas0 - gentle diuresis implemented by john - cortisol level pending Cellulitis , RLL PNA - 05/12 Zosy and zyvox - changed to ceftriaxone 05/16 based on sens ( serratia on wound cx MACARIO -slow improving with hydration - stable at Cr 1.7 x 3 days , off IVF - gentle diuresis A fib -cardioversion 05/17 - SINUS , on amio gtt - on Eliquis UPPER INSPECTOR - ON HOLD , lovenox ON HOLD - ECHO 05/15 EF 25% , gdII dst dsfnc . RVSP 45 hmmHG m ECHO 05/17 - EF 30% , no vegitations Coagulopathy - INT 7 on admission ( on Eliquis UPPER INSPECTOR - no active bleeding - INR am 1.7 05/16 - started lovenox 120 bid Thrombocytopenia - PLT drop 140s-->80s - ? delutional -? due to Zosyn - off 3 days - less likely due to heparin - received lovenox 05/16- only , no indications for HIPPA check Recent COVID 03/2022 - on O2 at home h/o SAH in 2019 , s/p syncope and fall off a ladder Lines : R IJ 05/12 , (Central Line Necessity Reviewed) Landry: + OG: Nutrition: Po Analgesia: Anxiety/ delirium VTE Prophylaxis: lovenox full dose - STOPPED 05/18 with PLT 57 Stress Ulcer Prophylaxis: na Plans in collaboration with bedside consultants and IM MDs. Discussed with RN to reach out if any questions or concerns A total of 31 minutes of critical care time was devoted to this patient today, required to treat and/or prevent further deterioration of critical care condition ( as above ) . Sepsis Event Evaluation Height, Weight, BMI Height: '" Weight: lbs. oz. kg; 39.48 BMI Method: Focused Exam Time of Focused Exam: 17:00 Exam Exam Patient acknowledged, consented, and participated in this virtual visit which was conducted using real time audio/video Vital Signs Date Time Temp Pulse Resp B/P (MAP) Pulse Ox O2 Delivery O2 Flow Rate FiO2 05/18/22 10:00 78 16 105/80 (88) 96 High Flow N/C 2.00 05/18/22 09:00 72 20 97/69 (78) 97 High Flow N/C 2.00 05/18/22 08:13 36.0 05/18/22 08:01 35.8 71 95 28 05/18/22 08:00 74 29 91/73 (79) 98 High Flow N/C 2.00 05/18/22 07:08 95 High Flow N/C 2.00 05/18/22 07:00 73 35 90/73 (79) 97 High Flow N/C 2.00 05/18/22 07:00 73 05/18/22 06:00 70 101/72 (81) 96 High Flow N/C 2.00 05/18/22 05:54 70 87/70 05/18/22 05:00 71 95/73 (80) 97 High Flow N/C 2.00 05/18/22 04:00 High Flow N/C 2.00 05/18/22 04:00 69 97/74 (78) 98 High Flow N/C 2.00 05/18/22 03:00 71 29 91/68 (76) 99 High Flow N/C 2.00 05/18/22 02:00 70 99/75 (85) 99 High Flow N/C 2.00 05/18/22 01:00 71 05/18/22 01:00 71 95/78 (83) 97 High Flow N/C 2.00 05/18/22 00:00 71 94/69 (77) 98 High Flow N/C 2.00 05/17/22 23:59 High Flow N/C 2.00 05/17/22 23:00 75 93/69 (82) 97 High Flow N/C 2.00 05/17/22 22:03 High Flow N/C 2.00 05/17/22 22:00 75 30 93/73 (80) 97 Nasal Cannula 2.00 05/17/22 21:33 99 Nasal Cannula 2.00 05/17/22 21:00 73 11 95/73 (79) 97 Nasal Cannula 2.00 05/17/22 20:00 73 11 97/62 (73) 97 Nasal Cannula 2.00 05/17/22 20:00 35.8 05/17/22 20:00 High Flow N/C 2.00 05/17/22 19:30 73 20 99/61 (74) 96 Nasal Cannula 2.00 05/17/22 19:00 74 19 89/63 (74) 98 Nasal Cannula 2.00 05/17/22 19:00 74 05/17/22 18:52 73 92/77 05/17/22 18:29 73 92/77 05/17/22 17:00 73 17 92/77 (82) 99 Nasal Cannula 2.00 05/17/22 16:20 Nasal Cannula 2.00 05/17/22 16:00 Nasal Cannula 2.00 05/17/22 16:00 36.9 05/17/22 16:00 75 14 104/77 (86) 99 Nasal Cannula 5.00 05/17/22 15:00 75 7 104/81 (89) 98 Nasal Cannula 5.00 05/17/22 14:00 74 14 101/76 (84) 99 Nasal Cannula 5.00 05/17/22 13:30 75 17 95/71 (79) 90 Nasal Cannula 5.00 05/17/22 13:15 72 16 89/68 (75) 88 Nasal Cannula 5.00 05/17/22 13:03 70 05/17/22 13:00 73 18 96/83 (87) 85 Nasal Cannula 5.00 05/17/22 12:30 71 17 82/60 (73) 95 Nasal Cannula 5.00 05/17/22 12:15 69 21 100/65 (77) 97 Nasal Cannula 5.00 05/17/22 12:00 Nasal Cannula 2.00 05/17/22 11:55 76 22 95/69 (79) 96 Nasal Cannula 5.00 05/17/22 11:50 78 19 98/70 (81) 97 Nasal Cannula 5.00 05/17/22 11:45 75 25 88/68 (73) 98 Nasal Cannula 5.00 05/17/22 11:30 75 20 100/80 (83) 96 Nasal Cannula 5.00 05/17/22 11:28 68 05/17/22 11:20 78 16 107/77 (91) 97 Nasal Cannula 4.00 05/17/22 11:09 98 95/72 05/17/22 11:00 89 9 119/99 (104) Nasal Cannula 05/17/22 11:00 117 13 101/65 (77) 96 Nasal Cannula 2.00 I & O 05/18/22 07:00 Intake Total 981 ml Output Total 2800 ml Balance -1819 ml Height & Weight Height: '" Weight: lbs. oz. kg; 39.48 BMI Method: General Appearance: No Apparent Distress, Chronically ill, Obese HEENT: PERRL/EOMI Neck: Non Tender, Supple (only left side exmined, central line on right) Respiratory: No Accessory Muscle Use, No Respiratory Distress, Decreased Breath Sounds (bilateral bases); No Wheezing Cardiovascular: Irregularly Irregular, Tachycardia Capillary Refill: Less Than 3 Seconds Peripheral Pulses: 1+ Dorsalis Pedis (R); 2+ Left Dors-Pedis (L), 2+ Radial Pulses (R), 2+ Radial Pulses (L) Gastrointestinal: non tender, soft Extremity: Calf Tenderness (right calf, rated 3 out of 10), Pedal Edema (3+ b/l), Other (able to expel fluid from RLE by applying pressure around lesions) Neurologic/Psychiatric: Alert, Oriented x3 Skin: Cool, Pallor, Other (erythema and edema of RLE up to knee appears improved; with calf draining wound and surrounding excoriations with honey colored drainage) Lymphatic: No Adenopathy Results Lab Laboratory Tests 05/17/22 04:20 05/18/22 04:00 Assessment/Plan Assessment/Plan 1 LAZARO SINGH MD May 18, 2022 10:37
--- NOTE | 2022-05-18 12:44 | Progress Note ---
ARAMIS FONTENOT 05/18/22 1244: Subjective Date Seen by a Provider: May 18, 2022 Time Seen by a Provider: 12:39 Subjective/Events-last exam Patient awake and states he feels a little better since yesterday. BP is slightly hypotensive still. Denies any fever or chills at the moment. RLE still swollen with some erythema and drainage. CXR unchanged from yesterday with diffuse interstitial opacities. Nurse reports patient has had some hematuria and discolored stools since yesterday, along with some bruising of the abdomen, likely due to Lovenox inj ections. Platelets [address] Uribe to hold Lovenox. Focused Exam Time of Focused Exam: 17:00 Objective Exam Last Set of Vital Signs Vital Signs Date Time Temp Pulse Resp B/P (MAP) Pulse Ox O2 Delivery O2 Flow Rate FiO2 05/18/22 12:00 36.0 05/18/22 11:00 73 90/72 (78) 98 High Flow N/C 2.00 05/18/22 10:00 16 05/18/22 08:01 28 Capillary Refill : Less Than 3 Seconds I&O Intake and Output 05/18/22 00:00 Intake Total 1029.00 ml Output Total 3150 ml Balance -2121.00 ml Intake Oral 880 ml IV Total 149.00 ml Output Urine Total 3150 ml # Bowel Movements 2 General: Alert, Cooperative Neck: No JVD Abdomen: Soft, No Tenderness Extremities: Other (BLE anasarca, RLE cellulitis ) Results Lab Laboratory Tests 05/18/22 04:00: White Blood Count 7.3, Red Blood Count 3.94L, Hemoglobin 11.7L, Hematocrit 37L, Mean Corpuscular Volume 93, Mean Corpuscular Hemoglobin 30, Mean Corpuscular Hemoglobin Concent 32, Red Cell Distribution Width 16.8H, Platelet Count 57L, Mean Platelet Volume 10.7, Immature Granulocyte % (Auto) 1, Neutrophils (%) (Auto) 84H, Lymphocytes (%) (Auto) 11L, Monocytes (%) (Auto) 5, Eosinophils (%) (Auto) 0, Basophils (%) (Auto) 0, Neutrophils # (Auto) 6.1, Lymphocytes # (Auto) 0.8L, Monocytes # (Auto) 0.4, Eosinophils # (Auto) 0.0, Basophils # (Auto) 0.0, Immature Granulocyte # (Auto) 0.0, Percent Immature Platelet Fraction 2.7, Sodium Level 138, Potassium Level 3.5L, Chloride Level 103, Carbon Dioxide Level 21, Anion Gap 14, Blood Urea Nitrogen 42H, Creatinine 1.72H, Estimat Glomerular Filtration Rate 43, BUN/Creatinine Ratio 24, Glucose Level 125H, Calcium Level 8.0L, Corrected Calcium 9.0, Phosphorus Level 3.3, Magnesium Level 2.1, Total Bilirubin 1.9H, Aspartate Amino Transf (AST/SGOT) 28, Alanine Aminotransferase (ALT/SGPT) 32, Alkaline Phosphatase 65, Total Protein 6.4, Albumin 2.8L 05/18/22 10:12: Microbiology 05/12/22 MRSA Screen - Final, Complete MRSA not isolated 05/12/22 Urine Culture - Final, Complete NO GROWTH 05/12/22 Blood Culture - Final, Complete No growth 05/12/22 Gram Stain - Final, Complete 05/12/22 Wound Culture - Final, Complete Serratia marcescens Gram Pos Mixed Bacterial Janae Assessment/Plan Assessment/Plan Assess & Plan/Chief Complaint Assessment: Cardiogenic shock Pulmonary Hypertension with Mitral Regurgitation Heart Failure due to Afib Acute on chronic respiratory failure Pneumonia Right lower extremity cellulitis Acute kidney injury Anasarca Atrial fibrillation w/RVR now much improved Recent COVID Central line required due to critical illness Coagulopathy due to Eliquis and acute renal failure Chronic hypoxia supplemental oxygen required since last admit Plan: Broad-spectrum antibiotics Supportive care Hold Lovenox Patient disposition to [facility] facility Clinical Quality Measures DVT/VTE Risk/Contraindication: Contraindications-Mechi: Other *list below* Other: cellulitis legs ALLY KENNEDY DO 05/19/22 0533: Subjective Subjective/Events-last exam Improved status Platelets have decreased CXR reviewed Slight and slow improvement [facility] candidate Review of Systems General: Fatigue, Malaise Objective Exam General: Alert, Oriented X3, Cooperative Lungs: Clear to Auscultation Psych/Mental Status: Mental Status NL Assessment/Plan Assessment/Plan Assess & Plan/Chief Complaint [facility] Supervisory-Addendum Brief Verification & Attestation Participated in pt care: history, MDM, physical Personally performed: exam, history, MDM, supervision of care Care discussed with: Medical Student Procedures: n/a Results interpretation: Verified all documentation Verification and Attestation of Medical Student E/M Service A medical student performed and documented this service in my presence. I reviewed and verified all information documented by the medical student and made modifications to such information, when appropriate. I personally performed the physical exam and medical decision making. Ally Kennedy, May 19, 2022,05:32 ARAMIS FONTENOT May 18, 2022 12:44 ALLY KENNEDY DO May 19, 2022 05:33
[2022-05-18] MEDS ORDERED: AMIODARONE 200 MG (CORDARONE) TAB PO NR (16:15)
[2022-05-18] MEDS: AMIODARONE 200 MG (CORDARONE) TAB PO SCH (21:38)
[2022-05-19 04:26] LABS: BASOPHILS % (AUTO) 0 % (0-10); EOSINOPHILS % (AUTO) 1 % (0-10); HEMOGLOBIN 11.1 g/dL (13.3-17.7)
[2022-05-19 04:28] LABS: HEMATOCRIT 35 % (40-54); LYMPHOCYTES # (AUTO) 0.7 10^3/uL (1.0-4.0); LYMPHOCYTES % (AUTO) 11 % (12-44); MEAN CORPUSCULAR HEMOGLOBIN 29 pg (25-34); MEAN CORPUSCULAR HGB CONC 31 g/dL (32-36); MEAN CORPUSCULAR VOLUME 93 fL (80-99); MONOCYTES # (AUTO) 0.2 10^3/uL (0.0-1.0); MONOCYTES % (AUTO) 3 % (0-12); NEUTROPHILS % (AUTO) 85 % (42-75); PLATELET COUNT 41 10^3/uL (130-400)
[2022-05-19 04:37] LABS: ALBUMIN 2.6 GM/DL (3.2-4.5); POTASSIUM 2.8 MMOL/L (3.6-5.0)
[2022-05-19 04:38] LABS: CALCIUM 7.9 MG/DL (8.5-10.1)
[2022-05-19 04:39] LABS: TOTAL PROTEIN 5.9 GM/DL (6.4-8.2)
[2022-05-19 04:41] LABS: BILIRUBIN,TOTAL 1.6 MG/DL (0.1-1.0)
[2022-05-19 04:42] LABS: PHOSPHORUS 2.5 MG/DL (2.3-4.7)
[2022-05-19 04:43] LABS: CREATININE SERUM 1.46 MG/DL (0.60-1.30)
[2022-05-19 04:45] LABS: MAGNESIUM 1.8 MG/DL (1.6-2.4)
[2022-05-19] MEDS: MAGNESIUM 1 GM/100 ML IVPB 100 ML IV SCH (06:00)
[2022-05-19] MEDS: NOREPINEPHRINE 8 MG/250 ML 250 ML IV SCH (06:18)
[2022-05-19] MEDS: POTASSIUM CL 10MEQ/50ML IVPB 50 ML IV SCH (06:23)
[2022-05-19] MEDS: KCL 20 MEQ TAB (K-DUR) PO SCH ×4 (06:24→11:06)
[2022-05-19] MEDS: AMIODARONE 200 MG (CORDARONE) TAB PO SCH (08:03)
[2022-05-19] MEDS: DIGOXIN 0.25 MG (LANOXIN) TAB PO SCH (08:03)
[2022-05-19] MEDS: FUROSEMIDE 40 MG/4 ML INJ (LASIX) IVP SCH (08:04)
--- NOTE | 2022-05-19 08:28 | Diagnostic Imaging Report ---
EXAM: CHEST 1 VIEW, AP/PA ONLY INDICATION: Dyspnea. Sepsis. COMPARISON: Chest radiograph 05/18/2022. FINDINGS: Right IJ CVC tip lower SVC. Implantable loop recorder. Cardiomegaly with pulmonary vascular congestion. Scattered interstitial and airspace opacities are greatest in the right lung base. No pleural effusion or pneumothorax. No acute osseous findings. IMPRESSION: 1. Improved lung volumes with persistent diffuse interstitial and airspace opacities, greatest in the right lung base. 2. Cardiomegaly with pulmonary vascular congestion. Dictated by: Dictated on workstation # [id number]
--- NOTE | 2022-05-19 08:31 | Tele-ICU Progress Note ---
Subjective Date Seen by a Provider: May 19, 2022 Subjective/Events-last exam This virtual visit was conducted using real time audio/video. Thank you for asking us to see this patient for respiratory insufficiency. Admit w fall, septic shock, RLE cell., afib, coagulop. Recent Covid 03/2022. Recent events: off pressors. PE: Resting comfortably on camera. VSS. O2 sat 97% on 2 LPM. HEENT: No obvious masses, adenopathy or JVD. Chest: decreased w crackles. CV: Irreg. S1 S2 No murmur or added sounds. Abd: Non-tender. Bowel sounds Y. : Unremarkable. Landry Y. 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 No obvious focal findings. Extremities: 2-3+ edema. Capillary refill < 3 seconds. Skin: unremarkable. Results: Elevated BUN 36, Creat 1.46. Decreased Hb 11.1. CXR: cardiomeg., congested, hyperinflated. Available chart/ vitals / labs / images reviewed. Video assessment done using teleICU camera, rest of exam as per RN. A/P: Respiratory insufficiency: Continue present management with O2, weaning as sanjay. Cont alb. Monitor for increasing oxygenation needs and/or need for intubation. Critical Care: critically ill patient. Cont.presors PRN, lasix, abx, taryn., dig., amiod. Replace K. Discussed with JEANIE Nguyen. Asked RN to reach out to eICU if any questions or concerns later. Time spent with patient/coordination of care with other health professionals (mins): 22 Sepsis Event Evaluation Height, Weight, BMI Height: '" Weight: lbs. oz. kg; 39.48 BMI Method: Focused Exam Time of Focused Exam: 17:00 Exam Exam Patient acknowledged, consented, and participated in this virtual visit which was conducted using real time audio/video Vital Signs Date Time Temp Pulse Resp B/P (MAP) Pulse Ox O2 Delivery O2 Flow Rate FiO2 05/19/22 08:07 35.9 05/19/22 08:00 90 14 96/72 (80) 94 Nasal Cannula 2.00 05/19/22 07:00 107 18 102/72 (82) 95 Nasal Cannula 2.00 05/19/22 07:00 102 05/19/22 06:00 114 20 103/76 (82) 98 Nasal Cannula 2.00 05/19/22 05:00 87 97/82 (87) 99 Nasal Cannula 2.00 05/19/22 04:00 80 103/82 (91) 97 Nasal Cannula 2.00 05/19/22 04:00 High Flow N/C 2.00 05/19/22 03:00 102 111/97 (101) 94 Nasal Cannula 2.00 05/19/22 02:00 77 109/78 (93) 98 Nasal Cannula 2.00 05/19/22 01:00 87 05/19/22 01:00 87 96/70 (78) 98 Nasal Cannula 2.00 05/19/22 00:04 High Flow N/C 2.00 05/19/22 00:00 78 100/79 (86) 98 Nasal Cannula 2.00 05/18/22 23:00 83 114/71 (74) 99 Nasal Cannula 2.00 05/18/22 22:18 100 100/76 (82) 97 Nasal Cannula 2.00 05/18/22 22:00 102 87/70 (76) 99 Nasal Cannula 2.00 05/18/22 21:57 99 High Flow N/C 2.00 05/18/22 21:00 74 103/56 (73) 98 Nasal Cannula 2.00 05/18/22 20:00 85 97/63 (71) 98 Nasal Cannula 2.00 05/18/22 20:00 High Flow N/C 2.00 05/18/22 19:27 36.9 05/18/22 19:00 89 91/69 (79) 98 Nasal Cannula 2.00 05/18/22 19:00 89 05/18/22 18:25 70 96/74 05/18/22 18:00 93 99 104/70 (81) 97 High Flow N/C 2.00 05/18/22 17:00 70 95 96/74 (81) High Flow N/C 2.00 05/18/22 16:53 66 97/70 05/18/22 16:17 High Flow N/C 2.00 05/18/22 16:00 66 99 97/70 (79) High Flow N/C 2.00 05/18/22 15:47 36.1 05/18/22 15:00 67 92/64 (73) 98 High Flow N/C 2.00 05/18/22 14:00 74 96/73 (81) 98 High Flow N/C 2.00 05/18/22 13:00 69 93/69 (77) 99 High Flow N/C 2.00 05/18/22 13:00 75 05/18/22 12:00 71 104/71 (82) 97 High Flow N/C 2.00 05/18/22 12:00 36.0 05/18/22 12:00 High Flow N/C 2.00 05/18/22 11:00 73 90/72 (78) 98 High Flow N/C 2.00 05/18/22 10:00 78 16 105/80 (88) 96 High Flow N/C 2.00 05/18/22 09:00 72 20 97/69 (78) 97 High Flow N/C 2.00 I & O 05/19/22 07:00 Intake Total 1450 ml Output Total 3350 ml Balance -1900 ml Height & Weight Height: '" Weight: lbs. oz. kg; 39.48 BMI Method: General Appearance: No Apparent Distress, Chronically ill, Obese HEENT: PERRL/EOMI Neck: Non Tender, Supple (only left side exmined, central line on right) Respiratory: No Accessory Muscle Use, No Respiratory Distress, Decreased Breath Sounds (bilateral bases); No Wheezing Cardiovascular: Irregularly Irregular, Tachycardia Capillary Refill: Less Than 3 Seconds Peripheral Pulses: 1+ Dorsalis Pedis (R); 2+ Left Dors-Pedis (L), 2+ Radial Pulses (R), 2+ Radial Pulses (L) Gastrointestinal: non tender, soft Extremity: Calf Tenderness (right calf, rated 3 out of 10), Pedal Edema (3+ b/l), Other (able to expel fluid from RLE by applying pressure around lesions) Neurologic/Psychiatric: Alert, Oriented x3 Skin: Cool, Pallor, Other (erythema and edema of RLE up to knee appears improved; with calf draining wound and surrounding excoriations with honey colored drainage) Lymphatic: No Adenopathy Results Lab Laboratory Tests 05/18/22 04:00 05/19/22 04:16 Assessment/Plan Assessment/Plan See free text. Critical Care: Critically Ill Patient DONNY CAMPBELL MD May 19, 2022 08:30
[2022-05-19] MEDS: DOCUSATE SODIUM 100 MG (COLACE) CAP PO SCH (09:00)
[2022-05-19] MEDS: SENNOSIDES 8.6 MG (SENOKOT) TAB PO SCH (09:00)
[2022-05-19] MEDS: ENOXAPARIN 120 MG/0.8 ML (LOVENOX) SQ SCH (09:00)
[2022-05-19] MEDS: RT-ALBUTEROL SULF 2.5 MG/3 ML PRE-MIX VIAL INH SCH (10:49)
--- NOTE | 2022-05-19 11:02 | Cardiology Progress Note ---
Subjective Date Seen by Provider: May 19, 2022 Time Seen by Provider: 11:01 Subjective/Events-last exam Patient was seen at bedside, laying down comfortably. Lethargic. No new complaint. Review of Systems General: No Chills, No Night Sweats; Fatigue, Malaise; No Appetite, No Other HEENT: No Head Aches, No Visual Changes, No Eye Pain, No Ear Pain, No Dysphasia, No Sinus Congestion, No Post Nasal Drip, No Sore Throat, No Other Pulmonary: No Dyspnea, No Cough, No Pleuritic Chest Pain, No Other Cardiovascular: No: Chest Pain, Palpitations, Orthopnea, Paroxysmal Noc. Dyspnea, Edema, Lt Headedness, Other Focused Exam Time of Focused Exam: 17:00 Objective-Cardiology Exam Last Set of Vital Signs Vital Signs 05/18/22 05/19/22 05/19/22 08:01 11:55 12:00 Temp 35.4 Pulse 93 Resp 13 B/P (MAP) 95/61 (72) Pulse Ox 93 O2 Delivery Nasal Cannula O2 Flow Rate 2.00 FiO2 28 I&O Intake and Output 05/19/22 00:00 Intake Total 1451 ml Output Total 2800 ml Balance -1349 ml Intake Oral 1300 ml IV Total 151 ml Output Urine Total 2800 ml # Bowel Movements 2 General: Alert, Oriented X3, Cooperative HEENT: Mucous Memb Moist/[place] Neck: No JVD Lungs: Clear to Auscultation Heart: Normal S1, Normal S2, Other (Atrial fibrillation) Abdomen: Soft, No Tenderness Extremities: Other (BLE anasarca, RLE cellulitis ) Skin: Other (RLE cellulitis of the calf area, with some serous drainage ) Neuro: Normal Gait, Normal Speech, Strength at 5/5 X4 Ext, Normal Tone Psych/Mental Status: Mental Status NL Results Lab Laboratory Tests 05/19/22 04:16 A/P-Cardiology Admission Diagnosis Septic shock Acute left ventricular systolic dysfunction, nonischemic cardiomyopathy Atrial fibrillation Cellulitis Assessment/Plan Right leg cellulitis/fasciitis, managed by primary care physician Septic shock, hypotension. Receiving antibiotics. Maintained on Levophed. Trying to wean him off all pressors and monitor tolerance and response Atrial fibrillation, tachycardia. History of paroxysmal atrial fibrillation, had KERRY and cardioversion in May 2020. Was back in atrial fibrillation as a persistent atrial fibrillation, has been re fusing cardioversion Intolerant to [place] Status post KERRY and electrical cardioversion on May 17, 2022 Patient was unable to maintained sinus rhythm, back to atrial fibrillation at this point. Still borderline hypotensive. Possible transfer to [place]. Thrombocytopenia, patient had hematuria and GI bleed. Unable to tolerate anticoagulation, Lovenox was discontinued. Congestive heart failure, acute left ventricular systolic dysfunction 2D echo was done on May 14, 2022 showing dilated left ventricle with ejection fraction 25 to 30%, diffuse hypokinesia, grade 2 diastolic dysfunction, biatrial enlargement, moderate mitral regurgitation, PA pressure 40 to 45 mmHg Probably nonischemic cardiomyopathy, last stress test was done in May 2020 showing no significant ischemia or infarction Probably heart failure secondary to tachycardia Started on diuretics, continue to monitor closely [id number] score of 2, has been maintained on Xarelto. Did not receive anticoagulation on this admission. I started Lovenox and will monitor platelets Thrombocytopenia, worsening, monitor platelets and H&H while receiving Lovenox Elevated liver enzymes, monitor liver functions Acute renal insufficiency, renal function are better. History of syncope and fall from a ladder with subarachnoid hemorrhage in May 2020. Treated at . Stress test done in May 2020 showing no significant ischemia or infarction, at that time his echo was normal. AUDELIA BEARD MD May 19, 2022 11:02
[2022-05-19] MEDS: cefTRIAXone 2,000 MG/NS 50 ML IVPB IV SCH ×2 (11:06)
--- NOTE | 2022-05-19 12:07 | Occupational Ther Daily Note ---
OT Current Status-Daily Note Subjective Pt in bed, agreeable to OT tx. Pt appears more alert and verbal on this date. ADL-Treatment Therapy Code Descriptions/Definitions Functional [place] Measure: 0=Not Assessed/NA 4=Minimal Assistance 1=Total Assistance 5=Supervision or Setup 2=Maximal Assistance 6=Modified [place] 3=Moderate Assistance 7=Complete IndependenceSCALE: Activities may be completed with or without assistive devices. 7-Vmrtlfsbda-gmthrlu completes the activity by him/herself with no assistance from a helper. 5-Set-up or Clean-up Assistance-helper sets up or cleans up; patient completes activity. [place] assists only prior to or following the activity. 4-Supervision or Touching Assistance-helper provides verbal cues and/or touching/steadying and/or contact guard assistance as patient completes activity. Assistance may be provided throughout the activity or intermittently. 3-Partial/Moderate Assistance-helper does LESS THAN HALF the effort. [place] lifts, holds or supports trunk or limbs, but provides less than half the effort. 2-Substantial/Maximal Assistance-helper does MORE THAN HALF the effort. [place] lifts or holds trunk or limbs and provides more than half the effort. 7-Kdoipnsfu-xalruy does ALL the effort. Patient does none of the effort to complete the activity. Or, the assistance of 2 or more helpers is required for the patient to complete the activity. If activity was not attempted, code reason: 7-Patient Refused. 9-Not Applicable-not attempted and the patient did not perform the activity before the current illness, exacerbation or injury. 10-Not Attempted due to Environmental Limitations-(lack of equipment, weather restraints, etc.). 88-Not Attempted due to Medical Conditions or Safety Concerns. Other Treatment Pt in bed, assist x2 required to boost towards HOB and turn towards R side with pillows for positioning. In order to increase BUE Strength and activity tolerance, pt completed x15 reps each of the following BUE exercises: shoulder flexion, elbow flexion/extension and front punch. Post tx, pt in bed, call light in reach and all needs met. Education OT Patient Education: Correct positioning, Energy conservation, Modified ADL techniques, Progress toward Goal/Update tx plan, Purpose of tx/functional activities Teaching Recipient: Patient Teaching Methods: Discussion Response to Teaching: Verbalize Understanding OT Fuel Oil Clerk Goals Shelter Goals Time Frame: May 26, 2022 Eating (QC): 6 Oral Hygiene (QC): 6 Toileting Hygiene (QC): 6 Shower/Bathe Self (QC): 6 Upper Body Dressing (QC): 6 Lower Body Dressing (QC): 6 On/Off Footwear (QC): 6 Additional Goals: 1-Demonstrate ADL Tasks, 2-Verbalize Understanding, 3-Improv eStrength/[place] 1=Demonstrate adherence to instructed precautions during ADL tasks. 2=Patient will verbalize/demonstrate understanding of assistive devices/modifications for ADL. 3=Patient will improve strength/tolerance for activity to enable patient to p erform ADL's. OT Education/Plan Problem List/Assessment Assessment: Decreased Activ Tolerance, Decreased UE Strength, Impaired Funct Balance, Impaired I ADL's, Impaired Self-Care Skills Discharge Recommendations Plan/Recommendations: Continue POC Treatment Plan/Plan of Care Patient would benefit from OT for education, treatment and training to promote independence in ADL's, mobility, safety and/or upper extremity function for ADL's. Plan of Care: ADL Retraining, Functional Mobility, UE Funct Exercise/Act Treatment Duration: May 26, 2022 Frequency: 3 times per week (3-5 times per week) Rehab Potential: Guarded Time/GCodes Start Time: 11:50 Stop Time: 12:02 Total Time Billed (hr/min): 12 Billed Treatment Time 1, EX VERONICA SHEPPARD OT May 19, 2022 12:07
--- NOTE | 2022-05-19 13:38 | Progress Note ---
ARAMIS FONTENOT 05/19/22 1338: Subjective Date Seen by a Provider: May 19, 2022 Time Seen by a Provider: 13:32 Subjective/Events-last exam Patient is awake and states he is doing alright. Reports that he went into A fib yesterday afternoon and is currently in Afib again. States Dr. Uribe is to see him at 10:30 this morning for cardioversion. Denies any other complaints at this time. Potassium is 2.8 today. CXR with bilateral diffuse opacities. Focused Exam Time of Focused Exam: 17:00 Objective Exam Last Set of Vital Signs Vital Signs Date Time Temp Pulse Resp B/P (MAP) Pulse Ox O2 Delivery O2 Flow Rate FiO2 05/19/22 13:00 89 18 97/76 (83) 93 Nasal Cannula 2.00 05/19/22 11:55 35.4 05/18/22 08:01 28 Capillary Refill : Less Than 3 Seconds I&O Intake and Output 05/19/22 00:00 Intake Total 1451 ml Output Total 2800 ml Balance -1349 ml Intake Oral 1300 ml IV Total 151 ml Output Urine Total 2800 ml # Bowel Movements 2 General: Alert, Cooperative Heart: Other (Atrial Fibrillation) Skin: Other (RLE cellulitis, BLE with anasarca) Results Lab Laboratory Tests 05/19/22 04:16: White Blood Count 6.0, Red Blood Count 3.79L, Hemoglobin 11.1L, Hematocrit 35L, Mean Corpuscular Volume 93, Mean Corpuscular Hemoglobin 29, Mean Corpuscular Hemoglobin Concent 31L, Red Cell Distribution Width 16.8H, Platelet Count 41L, Mean Platelet Volume 10.0, Immature Granulocyte % (Auto) 1, Neutrophils (%) (Auto) 85H, Lymphocytes (%) (Auto) 11L, Monocytes (%) (Auto) 3, Eosinophils (%) (Auto) 1, Basophils (%) (Auto) 0, Neutrophils # (Auto) 5.0, Lymphocytes # (Auto) 0.7L, Monocytes # (Auto) 0.2, Eosinophils # (Auto) 0.0, Basophils # (Auto) 0.0, Immature Granulocyte # (Auto) 0.1, Percent Immature Platelet Fraction 1.9, Sodium Level 143, Potassium Level 2.8L, Chloride Level 104, Carbon Dioxide Level 24, Anion Gap 15H, Blood Urea Nitrogen 36H, Creatinine 1.46H, Estimat Glomerular Filtration Rate 52, BUN/Creatinine Ratio 25, Glucose Level 107H, Calcium Level 7.9L, Corrected Calcium 9.0, Phosphorus Level 2.5, Magnesium Level 1.8, Total Bilirubin 1.6H, Aspartate Amino Transf (AST/SGOT) 23, Alanine Aminotransferase (ALT/SGPT) 26, Alkaline Phosphatase 63, Total Protein 5.9L, Albumin 2.6L Microbiology 05/12/22 MRSA Screen - Final, Complete MRSA not isolated 05/12/22 Urine Culture - Final, Complete NO GROWTH 05/12/22 Blood Culture - Final, Complete No growth 05/12/22 Gram Stain - Final, Complete 05/12/22 Wound Culture - Final, Complete Serratia marcescens Gram Pos Mixed Bacterial Janae Assessment/Plan Assessment/Plan Assess & Plan/Chief Complaint Assessment: Cardiogenic shock Pulmonary Hypertension with Mitral Regurgitation Heart Failure due to Afib Hypokalemia Acute on chronic respiratory failure Pneumonia Right lower extremity cellulitis Acute kidney injury Anasarca Atrial fibrillation w/RVR now much improved Recent COVID Central line required due to critical illness Coagulopathy due to Eliquis and acute renal failure Chronic hypoxia supplemental oxygen required since last admit Plan: Broad-spectrum antibiotics Supportive care Discussed with patient of possibility of being transferred to [facility] facilities if need be Cardiology to perform cardioversion Clinical Quality Measures DVT/VTE Risk/Contraindication: Contraindications-Mechi: Other *list below* Other: cellulitis legs ALLY KENNEDY DO 05/20/22 0544: Subjective Subjective/Events-last exam Pt is doing a lot better Afib with RVR prompted an Amiodarone infusion She will have cardioversion today [facility] reached out Unsure how rapid his recovery will be Potassium of 2.8 will initiate replacement standing order Supervisory-Addendum Brief Verification & Attestation Participated in pt care: history, MDM, physical Personally performed: exam, history, MDM, supervision of care Care discussed with: Medical Student Procedures: n/a Results interpretation: Verified all documentation Verification and Attestation of Medical Student E/M Service A medical student performed and documented this service in my presence. I reviewed and verified all information documented by the medical student and made modifications to such information, when appropriate. I personally performed the physical exam and medical decision making. Ally Kennedy, May 20, 2022,05:43 ARAMIS FONTENOT May 19, 2022 13:38 ALLY KENNEDY DO May 20, 2022 05:44
--- NOTE | 2022-05-19 14:03 | Physical Therapy Daily Note ---
PT Daily Note-Current Subjective Patient lying supine in bed upon PT arrival, agreeable to treatment. O2 sats at 83% upon PT arrival, nurse notified. She gave permission to increase O2 from 2 L to high enough to keep patient above 90% during treatment. Mental Status Patient Orientation: Person Transfers SCALE: Activities may be completed with or without assistive devices. 0-Lhfytigllo-neidjsy completes the activity by him/herself with no assistance from a helper. 5-Set-up or Clean-up Assistance-helper sets up or cleans up; patient completes activity. [place] assists only prior to or following the activity. 4-Supervision or Touching Assistance-helper provides verbal cues and/or touching/steadying and/or contact guard assistance as patient completes activity. Assistance may be provided throughout the activity or intermittently. 3-Partial/Moderate Assistance-helper does LESS THAN HALF the effort. [place] lifts, holds or supports trunk or limbs, but provides less than half the effort. 2-Substantial/Maximal Assistance-helper does MORE THAN HALF the effort. [place] lifts or holds trunk or limbs and provides more than half the effort. 2-Swsmkraiu-qeusad does ALL the effort. Patient does none of the effort to complete the activity. Or, the assistance of 2 or more helpers is required for the patient to complete the activity. If activity was not attempted, code reason: 7-Patient Refused. 9-Not Applicable-not attempted and the patient did not perform the activity before the current illness, exacerbation or injury. 10-Not Attempted due to Environmental Limitations-(lack of equipment, weather restraints, etc.). 88-Not Attempted due to Medical Conditions or Safety Concerns. Roll Left & Right (QC): 2 Sit to Lying (QC): 2 Lying to Sitting/Side of Bed(Q: 2 Gait Training Does the Patient Walk?: No and Walking Goal IS indicated Assessment Current Status: Poor Progress Patient performs all bed mobility with max A. Prior to bed mobility training patient O2 was increased slowly to 5 L. At that level, his O2% was 97%. Upon sitting patient declined within 2 minutes to 75%. PT encouraged deep breathing and pursed lipped breathing, however after ~ 2 minutes patient O2 only increased to 77%. Patient was transferred back to supine with max A. Upon returning to bed it was discovered that patient had a BM. Nursing notified and this PT assisted the DATABASE DEVELOPER with rolling patient and DATABASE DEVELOPER cleaned patient. Patient in bed post treatment with all needs met, nursing notified, call light in reach. PT Head Banquet Waitress Goals Snf Goals PT Head Banquet Waitress Goals Time Frame: May 23, 2022 Roll Left & Right (QC): 4 Sit to Lying (QC): 4 Lying-Sitting on Side/Bed(QC): 4 Sit to Stand (QC): 4 Chair/Sjx-ts-Xshad Xfer(QC): 4 Walk 10 feet (QC): 4 PT Plan Treatment/Plan Treatment Plan: Continue Plan of Care Treatment Plan: Bed Mobility, Education, Functional Activity [place], Functional Strength, Gait, Safety, Therapeutic Exercise, Transfers Treatment Duration: May 23, 2022 Frequency: 6 times per week Estimated Hrs Per Day: .25 hour per day Patient and/or Family Agrees t: Yes Safety Risks/Education Patient Education: Transfer Techniques Teaching Recipient: Patient Teaching Methods: Demonstration, Discussion Response to Teaching: Reinforcement Needed Time/GCodes Time In: 1324 Time Out: 1353 Total Billed Treatment Time: 29 Total Billed Treatment Visit, FA (2) STACIE WISE PT May 19, 2022 14:03
[2022-05-19] MEDS ORDERED: CEFT2FRO2 IV (15:13)
[2022-05-19] MEDS ORDERED: ALBU2.5V4 INH (15:13)
[2022-05-19] MEDS ORDERED: AMIO200T65 PO (15:13)
[2022-05-19] MEDS ORDERED: DIGO250T15 PO (15:13)
[2022-05-19] MEDS ORDERED: FURO10VI IVP (15:13)
--- NOTE | 2022-05-19 15:14 | Discharge Summary ---
Diagnosis/Chief Complaint Date of Admission May 12, 2022 at 19:26 Date of Discharge Discharge Date: May 19, 2022 Discharge Diagnosis Assessment: Cardiogenic shock Pulmonary Hypertension with Mitral Regurgitation Heart Failure due to Afib Hypokalemia Acute on chronic respiratory failure Pneumonia Right lower extremity cellulitis Acute kidney injury Anasarca Atrial fibrillation w/RVR now much improved Recent COVID Central line required due to critical illness Coagulopathy due to Eliquis and acute renal failure Chronic hypoxia supplemental oxygen required since last admit Plan: Broad-spectrum antibiotics Supportive care Discussed with patient of possibility of being transferred to [place] facilities if need be Cardiology to perform cardioversion Discharge Summary Discharge Physical Examination Allergies: Coded Allergies: No Known Drug Allergies (Unverified , 06/04/20) Vitals & I&Os Vital Signs Date Time Temp Pulse Resp B/P (MAP) Pulse Ox O2 Delivery O2 Flow Rate FiO2 05/19/22 16:57 35.9 05/19/22 16:45 05/19/22 16:26 89 05/19/22 16:00 27 92 Nasal Cannula 2.00 05/18/22 08:01 28 General Appearance: Alert, Oriented X3, Cooperative Respiratory: Clear to Auscultation Cardiovascular: Regular Rate Psych/Mental Status: Mental Status NL Hospital Course Was the Problem List Reviewed?: Yes Lengthy course after admitted for septic shock for right leg cellulitis and pneumonia requiring pressor therapy and aggressive IVF for MACARIO. ICU care required the entire course. Kidney function improved. Cardioversion successful for 1 day then again AF RVR requiring amiodarone drip. Labs monitored closely and sullivan cath monitored UOP. Overall his prognosis remains poor but has a possibility of return of function and will move to [place] under Dr Jacob estrella. Labs (last 24 hrs) Laboratory Tests 05/12/22 16:11: White Blood Count 9.3, Red Blood Count 4.35, Hemoglobin 13.3, Hematocrit 41, Mean Corpuscular Volume 94, Mean Corpuscular Hemoglobin 31, Mean Corpuscular Hemoglobin Concent 32, Red Cell Distribution Width 16.5H, Platelet Count 142, Mean Platelet Volume 10.0, Immature Granulocyte % (Auto) 0, Neutrophils (%) (Auto) 92H, Lymphocytes (%) (Auto) 3L, Monocytes (%) (Auto) 5, Eosinophils (%) (Auto) 0, Basophils (%) (Auto) 0, Neutrophils # (Auto) 8.6H, Lymphocytes # (Auto) 0.3L, Monocytes # (Auto) 0.5, Eosinophils # (Auto) 0.0, Basophils # (Auto) 0.0, Immature Granulocyte # (Auto) 0.0, Neutrophils % (Manual) 92, Lymphocytes % (Manual) 4, Monocytes % (Manual) 3, Band Neutrophils 1, Blood Morphology Comment NORMAL, Prothrombin Time 64.8*H, INR Comment 7.6*H, Activated Partial Thromboplast Time 49H, Lactic Acid Level 5.31*H 05/12/22 17:20: Sodium Level 129L, Potassium Level 5.9H, Chloride Level 97L, Carbon Dioxide Level 16L, Anion Gap 16H, Blood Urea Nitrogen 77H, Creatinine 2.66H, Estimat Glomerular Filtration Rate 25, BUN/Creatinine Ratio 29, Glucose Level 110H, C alcium Level 8.7, Corrected Calcium 9.3, Total Bilirubin 4.5H, Aspartate Amino Transf (AST/SGOT) 79H, Alanine Aminotransferase (ALT/SGPT) 123H, Alkaline Phosphatase 86, Total Protein 7.0, Albumin 3.3 05/12/22 18:48: Sodium Level 132L, Potassium Level 5.2H, Chloride Level 102, Carbon Dioxide Level 16L, Anion Gap 14, Blood Urea Nitrogen 70H, Creatinine 2.38H, Estimat Glomerular Filtration Rate 29, BUN/Creatinine Ratio 29, Glucose Level 94, Calcium Level 7.5L 05/12/22 18:53: Lactic Acid Level 2.85*H, Urine Color YELLOW, Urine Clarity CLOUDY, Urine pH 5.5, Urine Specific [place] 1.015L, Urine Protein NEGATIVE, Urine Glucose (UA) NEGATIVE, Urine Ketones NEGATIVE, Urine Nitrite NEGATIVE, Urine Bilirubin NEGATIVE, Urine Urobilinogen 1.0, Urine Leukocyte Esterase NEGATIVE, Urine RBC (Auto) 1+H, Urine RBC 0-2, Urine WBC NONE, Urine Squamous Epithelial Cells NONE, Urine Crystals NONE, Urine Bacteria FEWH, Urine Casts PRESENT, Urine Hyaline Casts 0-2H, Urine Mucus NEGATIVE, Urine Culture Indicated NO 05/12/22 19:26: Lab Scanned Report Referred Lab Report 05/12/22 21:00: Lactic Acid Level 2.80*H 05/13/22 00:06: Lactic Acid Level 2.53*H 05/13/22 03:05: Lactic Acid Level 2.28*H 05/13/22 03:35: White Blood Count 13.2H, Red Blood Count 4.38, Hemoglobin 13.4, Hematocrit 40, Mean Corpuscular Volume 92, Mean Corpuscular Hemoglobin 31, Mean Corpuscular Hemoglobin Concent 33, Red Cell Distribution Width 16.2H, Platelet Count 152, Mean Platelet Volume 9.7, Immature Granulocyte % (Auto) 0, Neutrophils (%) (Auto) 91H, Lymphocytes (%) (Auto) 4L, Monocytes (%) (Auto) 5, Eosinophils (%) (Auto) 0, Basophils (%) (Auto) 0, Neutrophils # (Auto) 12.0H, Lymphocytes # (Auto) 0.5L, Monocytes # (Auto) 0.6, Eosinophils # (Auto) 0.0, Basophils # (Auto) 0.0, Immature Granulocyte # (Auto) 0.0, Sodium Level 134L, Potassium Level 5.7H, Chloride Level 100, Carbon Dioxide Level 17L, Anion Gap 17H, Blood Urea Nitrogen 71H, Creatinine 2.66H, Estimat Glomerular Filtration Rate 25, BUN/Creatinine Ratio 27, Glucose Level 124H, Calcium Level 8.5, Corrected Calcium 9.2, Phosphorus Level 4.3, Magnesium Level 2.3, Total Bilirubin 4.4H, Aspartate Amino Transf (AST/SGOT) 60H, Alanine Aminotransferase (ALT/SGPT) 103H, Alkaline Phosphatase 79, Total Protein 6.8, Albumin 3.1L 05/13/22 05:10: Lactic Acid Level 2.29*H 05/13/22 07:35: Lactic Acid Level 2.15*H, Prothrombin Time 50.1*H, INR Comment 5.5*H, Procalcitonin 2.79H 05/13/22 08:14: Bedside Blood Gas pH (LAB) 7.414H, Bedside Blood Gas pCO2 (LAB) 31.4L, Bedside Blood Gas pO2 (LAB) 68L, Bedside Blood Gas HCO3 (LAB) 20.1L, POC Blood Gas Total CO2 Calc 21L, Bedside Bl Gas O2 Saturation (Calc) 94L, Bedside Arterial Blood Base Excess -4L 05/13/22 10:35: Sodium Level 134L, Potassium Level 5.3H, Chloride Level 100, Carbon Dioxide Level 19L, Anion Gap 15H, Blood Urea Nitrogen 64H, Creatinine 2.43H, Estimat Glomerular Filtration Rate 28, BUN/Creatinine Ratio 26, Glucose Level 152H, Lactic Acid Level 2.08*H, Calcium Level 8.3L, Total Creatine Kinase 49, B-Type Natriuretic Peptide 1887.7H 05/14/22 03:15: Sodium Level 137, Potassium Level 4.8, Chloride Level 104, Carbon Dioxide Level 19L, Anion Gap 14, Blood Urea Nitrogen 56H, Creatinine 2.17H, Estimat Glomerular Filtration Rate 32, BUN/Creatinine Ratio 26, Glucose Level 151H, Calcium Level 8.3L, White Blood Count 11.9H, Red Blood Count 4.07L, Hemoglobin 12.5L, Hematocrit 38L, Mean Corpuscular Volume 94, Mean Corpuscular Hemoglobin 31, Mean Corpuscular Hemoglobin Concent 33, Red Cell Distribution Width 16.5H, Platelet Count 107L, Mean Platelet Volume 10.0, Immature Granulocyte % (Auto) 1, Neutrophils (%) (Auto) 89H, Lymphocytes (%) (Auto) 5L, Monocytes (%) (Auto) 6, Eosinophils (%) (Auto) 0, Basophils (%) (Auto) 0, Neutrophils # (Auto) 10.5H, Lymphocytes # (Auto) 0.6L, Monocytes # (Auto) 0.7, Eosinophils # (Auto) 0.0, Basophils # (Auto) 0.0, Immature Granulocyte # (Auto) 0.1, Percent Immature Platelet Fraction 1.4, Corrected Calcium 9.2, Phosphorus Level 3.8, Magnesium Level 2.5H, Total Bilirubin 3.1H, Aspartate Amino Transf (AST/SGOT) 36H, Alanine Aminotransferase (ALT/SGPT) 74H, Alkaline Phosphatase 68, Total Protein 6.4, Albumin 2.9L 05/14/22 07:36: Blood Gas Puncture Site R RAD, Blood Gas Patient Temperature 36.8, Arterial Blood pH 7.36L, Arterial Blood Partial Pressure CO2 41, Arterial Blood Partial Pressure O2 107H, Arterial Blood HCO3 22L, Arterial Blood Total CO2 23.5, Ar terial Blood Oxygen Saturation 100, Arterial Blood Base Excess -2.4, Manas Test YES-POS, Blood Gas Ventilator Setting NO, Blood Gas Inspired Oxygen 2L 05/14/22 18:45: Stool Occult Blood Immunoassay POSITIVEH 05/15/22 04:45: White Blood Count 11.1H, Red Blood Count 3.96L, Hemoglobin 11.9L, Hematocrit 38L , Mean Corpuscular Volume 95, Mean Corpuscular Hemoglobin 30, Mean Corpuscular Hemoglobin Concent 32, Red Cell Distribution Width 16.9H, Platelet Count 93L, Mean Platelet Volume 9.8, Immature Granulocyte % (Auto) 1, Neutrophils (%) (Auto) 87H, Lymphocytes (%) (Auto) 7L, Monocytes (%) (Auto) 4, Eosinophils (%) (Auto) 0, Basophils (%) (Auto) 0, Neutrophils # (Auto) 9.7H, Lymphocytes # (Auto) 0.8L, Monocytes # (Auto) 0.5, Eosinophils # (Auto) 0.0, Basophils # (Auto) 0.0, Immature Granulocyte # (Auto) 0.1, Percent Immature Platelet Fraction 1.5, Sodium Level 137, Potassium Level 4.9, Chloride Level 105, Carbon Dioxide Level 19L, Anion Gap 13, Blood Urea Nitrogen 47H, Creatinine 1.72H, Estimat Glomerular Filtration Rate 43, BUN/Creatinine Ratio 27, Glucose Level 106H, Calcium Level 8.0L, Corrected Calcium 9.0, Phosphorus Level 3.1, Magnesium Level 2.3, Total Bilirubin 3.0H, Aspartate Amino Transf (AST/SGOT) 33, Alanine Aminotransferase (ALT/SGPT) 57H, Alkaline Phosphatase 69, Total Protein 6.3L, Albumin 2.8L 05/16/22 05:10: White Blood Count 11.2H, Red Blood Count 4.06L, Hemoglobin 12.3L, Hematocrit 38L , Mean Corpuscular Volume 94, Mean Corpuscular Hemoglobin 30, Mean Corpuscular Hemoglobin Concent 32, Red Cell Distribution Width 17.0H, Platelet Count 83L, Mean Platelet Volume 9.7, Immature Granulocyte % (Auto) 1, Neutrophils (%) (Auto) 88H, Lymphocytes (%) (Auto) 7L, Monocytes (%) (Auto) 4, Eosinophils (%) (Auto) 0, Basophils (%) (Auto) 0, Neutrophils # (Auto) 9.8H, Lymphocytes # (Auto) 0.8L, Monocytes # (Auto) 0.4, Eosinophils # (Auto) 0.0, Basophils # (Auto) 0.0, Immature Granulocyte # (Auto) 0.1, Sodium Level 135, Potassium Level 4.8, Chloride Level 104, Carbon Dioxide Level 18L, Anion Gap 13, Blood Urea Nitrogen 45H, Creatinine 1.72H, Estimat Glomerular Filtration Rate 43, BUN/Creatinine Ratio 26, Glucose Level 153H, Calcium Level 8.0L, Corrected Calcium 8.9, Phosphorus Level 3.7, Magnesium Level 2.3, Total Bilirubin 2.9H, Aspartate Amino Transf (AST/SGOT) 29, Alanine Aminotransferase (ALT/SGPT) 45, Alkaline Phosphatase 73, Total Protein 6.6, Albumin 2.9L, Prothrombin Time 20.5H , INR Comment 1.7H 05/17/22 04:20: White Blood Count 8.9, Red Blood Count 4.01L, Hemoglobin 12.0L, Hematocrit 38L, Mean Corpuscular Volume 94, Mean Corpuscular Hemoglobin 30, Mean Corpuscular Hemoglobin Concent 32, Red Cell Distribution Width 17.0H, Platelet Count 73L, Mean Platelet Volume 10.0, Immature Granulocyte % (Auto) 0, Neutrophils (%) (Auto) 86H, Lymphocytes (%) (Auto) 10L, Monocytes (%) (Auto) 4, Eosinophils (%) (Auto) 0, Basophils (%) (Auto) 0, Neutrophils # (Auto) 7.7, Lymphocytes # (Auto) 0.9L, Monocytes # (Auto) 0.3, Eosinophils # (Auto) 0.0, Basophils # (Auto) 0.0, Immature Granulocyte # (Auto) 0.0, Percent Immature Platelet Fraction 2.3, Sodium Level 138, Potassium Level 3.8, Chloride Level 104, Carbon Dioxide Level 20L, Anion Gap 14, Blood Urea Nitrogen 44H, Creatinine 1.69H, Estimat Glomerular Filtration Rate 44, BUN/Creatinine Ratio 26, Glucose Level 156H, Calcium Level 8.0L, Corrected Calcium 9.0, Phosphorus Level 3.2, Magnesium Level 2.2, Total Bilirubin 2.1H, Aspartate Amino Transf (AST/SGOT) 27, Alanine Aminotransferase (ALT/SGPT) 37, Alkaline Phosphatase 69, Total Protein 6.5, Albumin 2.8L 05/18/22 04:00: White Blood Count 7.3, Red Blood Count 3.94L, Hemoglobin 11.7L, Hematocrit 37L, Mean Corpuscular Volume 93, Mean Corpuscular Hemoglobin 30, Mean Corpuscular Hemoglobin Concent 32, Red Cell Distribution Width 16.8H, Platelet Count 57L, Mean Platelet Volume 10.7, Immature Granulocyte % (Auto) 1, Neutrophils (%) (Auto) 84H, Lymphocytes (%) (Auto) 11L, Monocytes (%) (Auto) 5, Eosinophils (%) (Auto) 0, Basophils (%) (Auto) 0, Neutrophils # (Auto) 6.1, Lymphocytes # (Auto) 0.8L, Monocytes # (Auto) 0.4, Eosinophils # (Auto) 0.0, Basophils # (Auto) 0.0, Immature Granulocyte # (Auto) 0.0, Percent Immature Platelet Fraction 2.7, Sodium Level 138, Potassium Level 3.5L, Chloride Level 103, Carbon Dioxide Level 21, Anion Gap 14, Blood Urea Nitrogen 42H, Creatinine 1.72H, Estimat Glomerular Filtration Rate 43, BUN/Creatinine Ratio 24, Glucose Level 125H, Calcium Level 8.0L, Corrected Calcium 9.0, Phosphorus Level 3.3, Magnesium Level 2.1, Total Bilirubin 1.9H, Aspartate Amino Transf (AST/SGOT) 28, Alanine Aminotransferase (ALT/SGPT) 32, Alkaline Phosphatase 65, Total Protein 6.4, Albumin 2.8L 05/18/22 10:12: Total Cortisol 25.9H 05/19/22 04:16: White Blood Count 6.0, Red Blood Count 3.79L, Hemoglobin 11.1L, Hematocrit 35L, Mean Corpuscular Volume 93, Mean Corpuscular Hemoglobin 29, Mean Corpuscular Hemoglobin Concent 31L, Red Cell Distribution Width 16.8H, Platelet Count 41L, Mean Platelet Volume 10.0, Immature Granulocyte % (Auto) 1, Neutrophils (%) (Auto) 85H, Lymphocytes (%) (Auto) 11L, Monocytes (%) (Auto) 3, Eosinophils (%) (Auto) 1, Basophils (%) (Auto) 0, Neutrophils # (Auto) 5.0, Lymphocytes # (Auto) 0.7L, Monocytes # (Auto) 0.2, Eosinophils # (Auto) 0.0, Basophils # (Auto) 0.0, Immature Granulocyte # (Auto) 0.1, Percent Immature Platelet Fraction 1.9, Sodium Level 143, Potassium Level 2.8L, Chloride Level 104, Carbon Dioxide Level 24, Anion Gap 15H, Blood Urea Nitrogen 36H, Creatinine 1.46H, Estimat Glomerular Filtration Rate 52, BUN/Creatinine Ratio 25, Glucose Level 107H, Calcium Level 7.9L, Corrected Calcium 9.0, Phosphorus Level 2.5, Magnesium Level 1.8, Total Bilirubin 1.6H, Aspartate Amino Transf (AST/SGOT) 23, Alanine Aminotransferase (ALT/SGPT) 26, Alkaline Phosphatase 63, Total Protein 5.9L, Albumin 2.6L Microbiology 05/12/22 MRSA Screen - Final, Complete MRSA not isolated 05/12/22 Urine Culture - Final, Complete NO GROWTH 05/12/22 Blood Culture - Final, Complete No growth 05/12/22 Gram Stain - Final, Complete 05/12/22 Wound Culture - Final, Complete Serratia marcescens Gram Pos Mixed Bacterial Janae Pending Labs Microbiology Date/Time Source Procedure Growth Status 05/12/22 20:12 Nasal MRSA Screen - Final MRSA not isolated Complete 05/12/22 18:53 Urine U Cath,Nos Urine Culture - Final NO GROWTH Complete 05/12/22 17:20 Peripheral Rt Hand Blood Culture - Final No growth Complete 05/12/22 16:11 Peripheral Rt Ac Blood Culture - Final No growth Complete 05/12/22 15:49 Drainage Leg, Right Gram Stain - Final Complete 05/12/22 15:49 Wound Culture - Final Serratia marcescens Gram Pos Mixed Bacterial Janae Complete Laboratory Tests 05/12/22 16:11: White Blood Count 9.3, Red Blood Count 4.35, Hemoglobin 13.3, Hematocrit 41, Mean Corpuscular Volume 94, Mean Corpuscular Hemoglobin 31, Mean Corpuscular Hemoglobin Concent 32, Red Cell Distribution Width 16.5, Platelet Count 142, Mean Platelet Volume 10.0, Immature Granulocyte % (Auto) 0, Neutrophils (%) (Auto) 92, Lymphocytes (%) (Auto) 3, Monocytes (%) (Auto) 5, Eosinophils (%) (Auto) 0, Basophils (%) (Auto) 0, Neutrophils # (Auto) 8.6, Lymphocytes # (Auto) 0.3, Monocytes # (Auto) 0.5, Eosinophils # (Auto) 0.0, Basophils # (Auto) 0.0, Immature Granulocyte # (Auto) 0.0, Neutrophils % (Manual) 92, Lymphocytes % (Manual) 4, Monocytes % (Manual) 3, Band Neutrophils 1, Blood Morphology Comment NORMAL, Prothrombin Time 64.8, INR Comment 7.6, Activated Partial Thromboplast Time 49, Lactic Acid Level 5.31 05/12/22 17:20: Sodium Level 129, Potassium Level 5.9, Chloride Level 97, Carbon Dioxide Level 16, Anion Gap 16, Blood Urea Nitrogen 77, Creatinine 2.66, Estimat Glomerular Filtration Rate 25, BUN/Creatinine Ratio 29, Glucose Level 110, Calcium Level 8.7, Corrected Calcium 9.3, Total Bilirubin 4.5, Aspartate Amino Transf (AST/SGOT) 79, Alanine Aminotransferase (ALT/SGPT) 123, Alkaline Phosphatase 86, Total Protein 7.0, Albumin 3.3 05/12/22 18:48: Sodium Level 132, Potassium Level 5.2, Chloride Level 102, Carbon Dioxide Level 16, Anion Gap 14, Blood Urea Nitrogen 70, Creatinine 2.38, Estimat Glomerular Filtration Rate 29, BUN/Creatinine Ratio 29, Glucose Level 94, Calcium Level 7.5 05/12/22 18:53: Lactic Acid Level 2.85, Urine Color YELLOW, Urine Clarity CLOUDY, Urine pH 5.5, Urine Specific [place] 1.015, Urine Protein NEGATIVE, Urine Glucose (UA) NEGATIVE, Urine Ketones NEGATIVE, Urine Nitrite NEGATIVE, Urine Bilirubin NEGATIVE, Urine Urobilinogen 1.0, Urine Leukocyte Esterase NEGATIVE, Urine RBC (Auto) 1+, Urine RBC 0-2, Urine WBC NONE, Urine Squamous Epithelial Cells NONE, Urine Crystals NONE, Urine Bacteria FEW, Urine Casts PRESENT, Urine Hyaline Ca sts 0-2, Urine Mucus NEGATIVE, Urine Culture Indicated NO 05/12/22 19:26: Lab Scanned Report Referred Lab Report 05/12/22 21:00: Lactic Acid Level 2.80 05/13/22 00:06: Lactic Acid Level 2.53 05/13/22 03:05: Lactic Acid Level 2.28 05/13/22 03:35: White Blood Count 13.2, Red Blood Count 4.38, Hemoglobin 13.4, Hematocrit 40, Mean Corpuscular Volume 92, Mean Corpuscular Hemoglobin 31, Mean Corpuscular Hemoglobin Concent 33, Red Cell Distribution Width 16.2, Platelet Count 152, Mean Platelet Volume 9.7, Immature Granulocyte % (Auto) 0, Neutrophils (%) (Auto) 91, Lymphocytes (%) (Auto) 4, Monocytes (%) (Auto) 5, Eosinophils (%) (Auto) 0, Basophils (%) (Auto) 0, Neutrophils # (Auto) 12.0, Lymphocytes # (Auto) 0.5, Monocytes # (Auto) 0.6, Eosinophils # (Auto) 0.0, Basophils # (Auto) 0.0, Immature Granulocyte # (Auto) 0.0, Sodium Level 134, Potassium Level 5.7, Chloride Level 100, Carbon Dioxide Level 17, Anion Gap 17, Blood Urea Nitrogen 71, Creatinine 2.66, Estimat Glomerular Filtration Rate 25, BUN/Creatinine Ratio 27, Glucose Level 124, Calcium Level 8.5, Corrected Calcium 9.2, Phosphorus Level 4.3, Magnesium Level 2.3, Total Bilirubin 4.4, Aspartate Amino Transf (AST/SGOT) 60, Alanine Aminotransferase (ALT/SGPT) 103, Alkaline Phosphatase 79, Total Protein 6.8, Albumin 3.1 05/13/22 05:10: Lactic Acid Level 2.29 05/13/22 07:35: Lactic Acid Level 2.15, Prothrombin Time 50.1, INR Comment 5.5, Procalcitonin 2.79 05/13/22 08:14: Bedside Blood Gas pH (LAB) 7.414, Bedside Blood Gas pCO2 (LAB) 31.4, Bedside Blood Gas pO2 (LAB) 68, Bedside Blood Gas HCO3 (LAB) 20.1, POC Blood Gas Total CO2 Calc 21, Bedside Bl Gas O2 Saturation (Calc) 94, Bedside Arterial Blood Base Excess -4 05/13/22 10:35: Sodium Level 134, Potassium Level 5.3, Chloride Level 100, Carbon Dioxide Level 19, Anion Gap 15, Blood Urea Nitrogen 64, Creatinine 2.43, Estimat Glomerular Filtration Rate 28, BUN/Creatinine Ratio 26, Glucose Level 152, Lactic Acid Level 2.08, Calcium Level 8.3, Total Creatine Kinase 49, B-Type Natriuretic Peptide 1887.7 05/14/22 03:15: Sodium Level 137, Potassium Level 4.8, Chloride Level 104, Carbon Dioxide Level 19, Anion Gap 14, Blood Urea Nitrogen 56, Creatinine 2.17, Estimat Glomerular Filtration Rate 32, BUN/Creatinine Ratio 26, Glucose Level 151, Calcium Level 8.3, White Blood Count 11.9, Red Blood Count 4.07, Hemoglobin 12.5, Hematocrit 38, Mean Corpuscular Volume 94, Mean Corpuscular Hemoglobin 31, Mean Corpuscular Hemoglobin Concent 33, Red Cell Distribution Width 16.5, Platelet Count 107, Mean Platelet Volume 10.0, Immature Granulocyte % (Auto) 1, Neutrophils (%) (Auto) 89, Lymphocytes (%) (Auto) 5, Monocytes (%) (Auto) 6, Eosinophils (%) (Auto) 0, Basophils (%) (Auto) 0, Neutrophils # (Auto) 10.5, Lymphocytes # ( Auto) 0.6, Monocytes # (Auto) 0.7, Eosinophils # (Auto) 0.0, Basophils # (Auto) 0.0, Immature Granulocyte # (Auto) 0.1, Percent Immature Platelet Fraction 1.4, Corrected Calcium 9.2, Phosphorus Level 3.8, Magnesium Level 2.5, Total Bilirubin 3.1, Aspartate Amino Transf (AST/SGOT) 36, Alanine Aminotransferase (ALT/SGPT) 74, Alkaline Phosphatase 68, Total Protein 6.4, Albumin 2.9 05/14/22 07:36: Blood Gas Puncture Site R RAD, Blood Gas Patient Temperature 36.8, Arterial Blood pH 7.36, Arterial Blood Partial Pressure CO2 41, Arterial Blood Partial Pressure O2 107, Arterial Blood HCO3 22, Arterial Blood Total CO2 23.5, Arterial Blood Oxygen Saturation 100, Arterial Blood Base Excess -2.4, Manas Test YES- POS, Blood Gas Ventilator Setting NO, Blood Gas Inspired Oxygen 2L 05/14/22 18:45: Stool Occult Blood Immunoassay POSITIVE 05/15/22 04:45: White Blood Count 11.1, Red Blood Count 3.96, Hemoglobin 11.9, Hematocrit 38, Mean Corpuscular Volume 95, Mean Corpuscular Hemoglobin 30, Mean Corpuscular Hemoglobin Concent 32, Red Cell Distribution Width 16.9, Platelet Count 93, Mean Platelet Volume 9.8, Immature Granulocyte % (Auto) 1, Neutrophils (%) (Auto) 87, Lymphocytes (%) (Auto) 7, Monocytes (%) (Auto) 4, Eosinophils (%) (Auto) 0, Basophils (%) (Auto) 0, Neutrophils # (Auto) 9.7, Lymphocytes # (Auto) 0.8, Monocytes # (Auto) 0.5, Eosinophils # (Auto) 0.0, Basophils # (Auto) 0.0, Immature Granulocyte # (Auto) 0.1, Percent Immature Platelet Fraction 1.5, Sodium Level 137, Potassium Level 4.9, Chloride Level 105, Carbon Dioxide Level 19, Anion Gap 13, Blood Urea Nitrogen 47, Creatinine 1.72, Estimat Glomerular Filtration Rate 43, BUN/Creatinine Ratio 27, Glucose Level 106, Calcium Level 8.0, Corrected Calcium 9.0, Phosphorus Level 3.1, Magnesium Level 2.3, Total Bilirubin 3.0, Aspartate Amino Transf (AST/SGOT) 33, Alanine Aminotransferase (ALT/SGPT) 57, Alkaline Phosphatase 69, Total Protein 6.3, Albumin 2.8 05/16/22 05:10: White Blood Count 11.2, Red Blood Count 4.06, Hemoglobin 12.3, Hematocrit 38, Mean Corpuscular Volume 94, Mean Corpuscular Hemoglobin 30, Mean Corpuscular Hemoglobin Concent 32, Red Cell Distribution Width 17.0, Platelet Count 83, Mean Platelet Volume 9.7, Immature Granulocyte % (Auto) 1, Neutrophils (%) (Auto) 88, Lymphocytes (%) (Auto) 7, Monocytes (%) (Auto) 4, Eosinophils (%) (Auto) 0, Basophils (%) (Auto) 0, Neutrophils # (Auto) 9.8, Lymphocytes # (Auto) 0.8, Monocytes # (Auto) 0.4, Eosinophils # (Auto) 0.0, Basophils # (Auto) 0.0, Immature Granulocyte # (Auto) 0.1, Sodium Level 135, Potassium Level 4.8, Chloride Level 104, Carbon Dioxide Level 18, Anion Gap 13, Blood Urea Nitrogen 45, Creatinine 1.72, Estimat Glomerular Filtration Rate 43, BUN/Creatinine Ratio 26, Glucose Level 153, Calcium Level 8.0, Corrected Calcium 8.9, Phosphorus Level 3.7, Magnesium Level 2.3, Total Bilirubin 2.9, Aspartate Amino Transf (AST/SGOT) 29, Alanine Aminotransferase (ALT/SGPT) 45, Alkaline Phosphatase 73, Total Protein 6.6, Albumin 2.9, Prothrombin Time 20.5, INR Comment 1.7 05/17/22 04:20: White Blood Count 8.9, Red Blood Count 4.01, Hemoglobin 12.0, Hematocrit 38, Mean Corpuscular Volume 94, Mean Corpuscular Hemoglobin 30, Mean Corpuscular Hemoglobin Concent 32, Red Cell Distribution Width 17.0, Platelet Count 73, Mean Platelet Volume 10.0, Immature Granulocyte % (Auto) 0, Neutrophils (%) (Auto) 86, Lymphocytes (%) (Auto) 10, Monocytes (%) (Auto) 4, Eosinophils (%) (Auto) 0, Basophils (%) (Auto) 0, Neutrophils # (Auto) 7.7, Lymphocytes # (Auto) 0.9, Monocytes # (Auto) 0.3, Eosinophils # (Auto) 0.0, Basophils # (Auto) 0.0, Immature Granulocyte # (Auto) 0.0, Percent Immature Platelet Fraction 2.3, Sodium Level 138, Potassium Level 3.8, Chloride Level 104, Carbon Dioxide Level 20, Anion Gap 14, Blood Urea Nitrogen 44, Creatinine 1.69, Estimat Glomerular Filtration Rate 44, BUN/Creatinine Ratio 26, Glucose Level 156, Calcium Level 8.0, Corrected Calcium 9.0, Phosphorus Level 3.2, Magnesium Level 2.2, Total Bilirubin 2.1, Aspartate Amino Transf (AST/SGOT) 27, Alanine Aminotransferase (ALT/SGPT) 37, Alkaline Phosphatase 69, Total Protein 6.5, Albumin 2.8 05/18/22 04:00: White Blood Count 7.3, Red Blood Count 3.94, Hemoglobin 11.7, Hematocrit 37, Mean Corpuscular Volume 93, Mean Corpuscular Hemoglobin 30, Mean Corpuscular Hemoglobin Concent 32, Red Cell Distribution Width 16.8, Platelet Count 57, Mean Platelet Volume 10.7, Immature Granulocyte % (Auto) 1, Neutrophils (%) (Auto) 84, Lymphocytes (%) (Auto) 11, Monocytes (%) (Auto) 5, Eosinophils (%) (Auto) 0, Basophils (%) (Auto) 0, Neutrophils # (Auto) 6.1, Lymphocytes # (Auto) 0.8, Monocytes # (Auto) 0.4, Eosinophils # (Auto) 0.0, Basophils # (Auto) 0.0, Immature Granulocyte # (Auto) 0.0, Percent Immature Platelet Fraction 2.7, Sodium Level 138, Potassium Level 3.5, Chloride Level 103, Carbon Dioxide Level 21, Anion Gap 14, Blood Urea Nitrogen 42, Creatinine 1.72, Estimat Glomerular Filtration Rate 43, BUN/Creatinine Ratio 24, Glucose Level 125, Calcium Level 8.0, Corrected Calcium 9.0, Phosphorus Level 3.3, Magnesium Level 2.1, Total Bilirubin 1.9, Aspartate Amino Transf (AST/SGOT) 28, Alanine Aminotransferase (ALT/SGPT) 32, Alkaline Phosphatase 65, Total Protein 6.4, Albumin 2.8 05/18/22 10:12: Total Cortisol 25.9 05/19/22 04:16: White Blood Count 6.0, Red Blood Count 3.79, Hemoglobin 11.1, Hematocrit 35, Mean Corpuscular Volume 93, Mean Corpuscular Hemoglobin 29, Mean Corpuscular Hemoglobin Concent 31, Red Cell Distribution Width 16.8, Platelet Count 41, Mean Platelet Volume 10.0, Immature Granulocyte % (Auto) 1, Neutrophils (%) (Auto) 85, Lymphocytes (%) (Auto) 11, Monocytes (%) (Auto) 3, Eosinophils (%) (Auto) 1, Basophils (%) (Auto) 0, Neutrophils # (Auto) 5.0, Lymphocytes # (Auto) 0.7, Monocytes # (Auto) 0.2, Eosinophils # (Auto) 0.0, Basophils # (Auto) 0.0, Immature Granulocyte # (Auto) 0.1, Percent Immature Platelet Fraction 1.9, Sodium Level 143, Potassium Level 2.8, Chloride Level 104, Carbon Dioxide Level 24, Anion Gap 15, Blood Urea Nitrogen 36, Creatinine 1.46, Estimat Glomerular Filtration Rate 52, BUN/Creatinine Ratio 25, Glucose Level 107, Calcium Level 7.9, Corrected Calcium 9.0, Phosphorus Level 2.5, Magnesium Level 1.8, Total Bilirubin 1.6, Aspartate Amino Transf (AST/SGOT) 23, Alanine Aminotransferase (ALT/SGPT) 26, Alkaline Phosphatase 63, Total Protein 5.9, Albumin 2.6 Discharge Home Medications: Active Scripts Active Furosemide 10 Mg/Ml Vial 40 Mg IVP BID@0700,1700 14 Days Digox (Digoxin) 250 Mcg (0.25 Mg) Tablet 0.25 Mg PO DAILY 14 Days Amiodarone HCl 200 Mg Tablet 400 Mg PO BID 14 Days Albuterol Sulfate 2.5 Mg/3 Ml (0.083 %) Vial.neb 2.5 Mg INH RTQ4HR PRN 7 Days Ceftriaxone 2 gm Piggyback (Ceftriaxone Na/Dextrose,Iso) 2 Gram/50 Ml Froz.piggy 2 Gm IV DAILY 1 Days Reported Proair Hfa (Albuterol Sulfate) 1 Puff Puff 2 Puff IH Q4H PRN Potassium Chloride 20 Meq Tablet.er 20 Meq PO 0800,1700 Instructions to patient/family Please see electronic discharge instructions given to patient. Diagnosis/Problems Diagnosis/Problems (1) Septic shock Status: Acute (2) Cellulitis of right leg Status: Acute (3) RML pneumonia Status: Acute (4) History of COVID-19 Status: Acute (5) Congestive heart failure Status: Acute (6) Primary hypertension (7) Persistent atrial fibrillation (8) MACARIO (acute kidney injury) Status: Acute Clinical Quality Measures DVT/VTE Risk/Contraindication: Contraindications-Mechi: Other *list below* Other: cellulitis legs GISELLA KENNEDY DO May 19, 2022 15:14
[2022-05-19 16:26] VITALS: BP 87/66
[2022-05-19] MEDS: VASOPRESSIN INJECTION 20 UNIT in NS (IVPB) 100 ML IV SCH (16:26)
== END 2022-05-19 16:45 | disposition short-term general hospital (02) | DRG 871 ==
LOC: EDUNIT# 15:09 → ER 15:11 → ICU 19:26
PROVIDERS: ADMIT Internal Medicine; ATTEND Internal Medicine
PROC: 5A2204Z Restoration of Cardiac Rhythm, Single (ICD-10-PCS; principal; 2022-05-17)
PROC: 5A0935A Assistance with Respiratory Ventilation, Less than 24 Consecutive Hours, High Flow/Velocity Cannula (ICD-10-PCS; 2022-05-18)
DX: A41.9 Sepsis, unspecified organism (principal); R65.21 Severe sepsis with septic shock; J18.9 Pneumonia, unspecified organism; J96.21 Acute and chronic respiratory failure with hypoxia; I50.31 Acute diastolic (congestive) heart failure; L03.115 Cellulitis of right lower limb; N17.9 Acute kidney failure, unspecified; I48.19 Other persistent atrial fibrillation; E87.1 Hypo-osmolality and hyponatremia; D68.9 Coagulation defect, unspecified; I42.8 Other cardiomyopathies; I42.0 Dilated cardiomyopathy; Z86.16 Personal history of COVID-19; I11.0 Hypertensive heart disease with heart failure; Z79.01 Long term (current) use of anticoagulants; Z79.82 Long term (current) use of aspirin; Z79.899 Other long term (current) drug therapy; E78.00 Pure hypercholesterolemia, unspecified; Z86.73 Personal history of transient ischemic attack (TIA), and cerebral infarction without residual deficits; E87.5 Hyperkalemia; R60.1 Generalized edema; D69.6 Thrombocytopenia, unspecified
CPT/HCPCS: 36415; 71045; 80048; 80053; 81000; 82274; 82533; 82550; 82805; 83605; 83735; 83880; 84100; 84145; 85007; 85025; 85027; 85610; 85730; 87040; 87070; 87077; 87081; 87088; 87186; 87205; 93005; 93306; 93312; 93320; 93325; 94640; 94664; 94760

== ENCOUNTER 2022-06-06 11:43 | Inpatient (IN) | payer BC, MEDICARE ==
[~2022-06-06] VITALS: Ht 170.2 cm; Wt 105.6 kg
[~2022-06-06 11:43] MED LIST changes: +ALBU2.5V4 INH; +CEFT2FRO2 IV; +DIGO250T15 PO; +DILT120C85 PO; +FURO10VI IVP; +FURO40TA4 PO; +POTA-51 PO; +RT-ALBUINH IH
[2022-06-06] MEDS ORDERED: LOPERAMIDE 2 MG (IMODIUM) TABLET PO PRN (12:15)
[2022-06-06] MEDS ORDERED: DOCUSATE SODIUM 100 MG (COLACE) CAP PO PRN (12:15)
[2022-06-06] MEDS ORDERED: MELATONIN 3 MG TABLET PO PRN (12:15)
[2022-06-06] MEDS ORDERED: FLEET ENEMA ADULT 1 EA BTL PR PRN (12:15)
[2022-06-06] MEDS ORDERED: LACTULOSE SYRUP 10GM/15ML (ENULOSE) 30ML UDC PO PRN (12:15)
[2022-06-06] MEDS ORDERED: ALPRAZolam 0.25 MG (XANAX) TAB PO PRN (12:15)
[2022-06-06] MEDS ORDERED: diphenhydrAMINE 25 MG TAB (BENADRYL) PO PRN (12:15)
[2022-06-06] MEDS ORDERED: ACETAMINOPHEN 325 MG TABLET PO PRN (12:15)
[2022-06-06] MEDS ORDERED: CALCIUM CARBONATE 500 MG (TUMS) TAB.CHEW PO PRN (12:15)
[2022-06-06] MEDS ORDERED: guaiFENesin/CODEINE (ROBITUSSIN AC) 10ML UDC PO PRN (12:15)
[2022-06-06] MEDS ORDERED: BISACODYL 10 MG SUPP (DULCOLAX) PR PRN (12:15)
[2022-06-06] MEDS ORDERED: ONDANSETRON 4 MG (ZOFRAN) ORAL DISSOLVE TAB PO PRN (12:15)
[2022-06-06] MEDS ORDERED: AMIO200T65 PO ×2 (13:09→14:17)
[2022-06-06] MEDS ORDERED: APIX5TAB PO (13:09)
[2022-06-06] MEDS ORDERED: FAMO20TA5 PO (13:09)
[2022-06-06] MEDS ORDERED: CARV3.122 PO (13:09)
[2022-06-06] MEDS ORDERED: DOCU100C37 PO (13:09)
[2022-06-06] MEDS ORDERED: THIA100T80 PO (13:09)
[2022-06-06] MEDS ORDERED: SENN-234 PO (13:09)
[2022-06-06] MEDS ORDERED: ACET-2840 PO (13:09)
[2022-06-06] MEDS ORDERED: FLUC100T10 PO (13:09)
[2022-06-06] MEDS ORDERED: POLY17PO6 PO (13:09)
[2022-06-06] MEDS ORDERED: LACT1CAP76 PO (13:09)
[2022-06-06] MEDS ORDERED: NYST15CR35 TP ×2 (13:09)
[2022-06-06 13:45] VITALS: BP 111/61
--- NOTE | 2022-06-06 14:11 | IRF PAI BIMS ---
BIMS BIMS IRF KEELY BIMS: IRF KEELY BIMS Response (Comments) Value Expression of Ideas and Wants (Verbal/Non Verbal) Without Difficulty 3 Understanding Verbal Content Understands 3 Should Brief Interview for Mental Status be Conducted Yes Repitition of Three Words Three (3 points) 3 What year is it right now? Correct (3 points) 0 What month is it right now? Accurate within 5 days (2 points) 0 What week is it now? Correct (1 point) 0 Recalls Socks Yes, No Cue Required (2 points) 2 Recalls Blue Yes, No Cue Required (2 points) 2 Recalls Bed No, Could Not Recall (0 points) 0 Total 13 Brief Interview/Mental Status: No Notes: points total VERONICA SHEPPARD OT Jun 06, 2022 14:11
--- OUTSIDE RECORDS SUMMARY | 2022-06-06 14:14 | XMS REPORT | Clinical Summary ---
Author Author [facility] Organization [facility] Address Unknown Phone Unavailable Care Team Providers Care Crew Person Name Role Phone No Pcp, Na PCP Unavailable Source Comments Some departments are not documenting in the electronic medical record. If you d o not see the information that you expected, contact Release of Information in [facility] [employer] Information Management department at [phone] for further assistan ce in locating additional records.[facility] Allergies No known active allergies Medications End Date Status Medication Sig Dispensed Refills Start Date Active acetaminophen (TYLENOL) Take two 0 325 mg tablet tablets by 0 mouth every 6 hours as needed for Pain. Active albuterol sulfate (PROAIR Inhale two 8.5 g 0 HFA) 90 mcg/actuation HFA puffs by 0 aerosol inhaler mouth into the lungs every 4 hours as needed for Wheezing. Shake well before use. Active docusate (COLACE) 100 mg Take one 180 capsule 0 0 capsule capsule by 0 mouth twice daily. Active nitroglycerin (NITROSTAT) Place one 25 tablet 0 0.4 mg tablet tablet under 0 tongue every 5 minutes as needed. Max of 3 tablets, call 911. Active polyethylene glycol 3350 Take one 12 each 0 0 (MIRALAX) 17 g packet packet by 0 mouth daily. Active Problems Problem Noted Date Atrial fibrillation 06/06/2020 Community acquired pneumonia of right middle lobe of lung 06/06/2020 Acute traumatic pain 06/06/2020 Class 1 obesity due to excess calories with serious c omorbidity and body 06/06/2020 mass index (BMI) of 34.0 to 34.9 in [place] lt Subdural hemorrhage 06/06/2020 MACARIO (acute kidney injury) 06/06/2020 Thrombocytopenia 06/06/2020 Subarachnoid hemorrhage 06/04/2020 Social History Date Tobacco Use Types Packs/Day Years Used Never Smoker Smokeless Tobacco: Never Used Comments Alcohol Use Standard Drinks/Week Not Currently 0 (1 standard drink = 0.6 o z pure alcohol) Sex Assigned at Date Recorded Not on file Obstetrics History Last Filed Vital Signs Reading Time Taken Comments Vital Sign 107/60 06/08/2020 1:05 PM CDT Blood Pressure 60 06/08/2020 1:05 PM CDT Pulse 36.4 C (97.5 F) 06/08/2020 1:05 PM CDT Temperature - - Respiratory Rate 96% 06/08/2020 1:05 PM CDT Oxygen Saturation - - Inhaled Oxygen Concentration 103.9 kg (229 lb) 06/05/2020 2:41 PM CDT Weight 172.7 cm (5' 8") 06/05/2020 2:41 PM CDT Height 34.82 06/05/2020 2:41 PM CDT Body Mass Index Plan of Treatment Health Maintenance Due Date Last Done Comments COVID-19 VACCINE (#1) 1954 DTAP/TDAP VACCINES (1 - 1972 Tdap) HEPATITIS C SCREENING 1972 PHYSICAL (COMPREHENSIVE) 1972 EXAM COLORECTAL CANCER 1999 SCREENING SHINGLES RECOMBINANT 2004 VACCINE (1 of 2) PNEUMOCOCCAL VACCINE (1 - 2019 PCV) ADVANCED CARE PLANNING 09/10/2021 DISCUSSION AND DOCUMENTATION DEPRESSION SCREENING 09/10/2021 INFLUENZA VACCINE 07/11/2022 Goals Goal Patient Associated Recent Progress Patient-Stat Aut hor Goal Type Problems ed? Decrease pain Hospital No Mary Eller, RN Resume normal activities Hospital No Mary Bro RN Results Not on filefrom Last 3 Months Insurance Type Payer Benefit Subscriber ID Effective Phone Address Plan / Dates Group Medicare MEDICARE MEDICARE [id number] 2019-P [phone] [address] [place] [address] Indemnity WORK[employer] GENERIC [id number] 2020- [phone] [address] WORK COMP Present [id number] [address] [id number] PPO [facility] [place] [id number] 2019- [phone] [id number] [facility] [place] [address] Yao Verma Workers Self [address] Comp (Home) [place] [address] Advance Directives Date Inactivated Comments Code Status Date Activated 06/08/2020 7:31 PM Full Code 06/04/2020 7:42 PM Provider has discussed Code Status No, discussion no t w/Patient or Family? necessary based on Dx Care Teams Start Date End Date Crew Person Relationship Specialty 06/04/20 No Pcp, Na PCP - General
--- NOTE | 2022-06-06 14:20 | Occupational Therapy Eval ---
OT Evaluation-General/PLF Medical Diagnosis Admission Date Medical Diagnosis: debility Onset Date: May 12, 2022 Therapy Diagnosis Therapy Diagnosis: decreased ADL status, weakness Precautions Precautions/Isolations: Fall Prevention, Standard Precautions Referral Physician: Gail Jackson Reason: Evaluation/Treatment Medical History Additional Medical History afib, cardiomyopathy, COVID, CKD, PNA, ansarca Current History [facility] 05/12/22 with c/o RLE pain, found to be hypoxic, PNA, and LE cellulitis, c omplicated by afib with RVR. Pt transferred to [place] 05/19/22. then transferred to [facility] 06/06/22. Social History Home: Single Level Current Living Status: Spouse ADL-Prior Level of Function SCALE: Activities may be completed with or without assistive devices. 0-Fftrdpzinh-omnlxou completes the activity by him/herself with no assistance from a helper. 5-Set-up or Clean-up Assistance-helper sets up or cleans up; patient completes activity. [place] assists only prior to or following the activity. 4-Supervision or Touching Assistance-helper provides verbal cues and/or touching/steadying and/or contact guard assistance as patient completes activity. Assistance may be provided throughout the activity or intermittently. 3-Partial/Moderate Assistance-helper does LESS THAN HALF the effort. [place] lifts, holds or supports trunk or limbs, but provides less than half the effort. 2-Substantial/Maximal Assistance-helper does MORE THAN HALF the effort. [place] lifts or holds trunk or limbs and provides more than half the effort. 1-Fizcxuixq-qelxyy does ALL the effort. Patient does none of the effort to complete the activity. Or, the assistance of 2 or more helpers is required for the patient to complete the activity. If activity was not attempted, code reason: 7-Patient Refused. 9-Not Applicable-not attempted and the patient did not perform the activity before the current illness, exacerbation or injury. 10-Not Attempted due to Environmental Limitations-(lack of equipment, weather restraints, etc.). 88-Not Attempted due to Medical Conditions or Safety Concerns. ADL PLOF Comments Pt reports IND with ADLs and functional mobility, no AD. he has a tub/shower, no SC. Self Care: Independent Functional Cognition: Independent DME/Equipment: Tub/Shower OT Current Status Subjective Pt agreeable to OT evaluation, c/o fatigue during tx Mental Status/Objective Patient Orientation: Person, Place, Time, Situation Acute Mental Status Change: 0 Inattention: 0 Disorganized thinkin Altered level of consciousness: 0 Current Glasses/Contacts: Yes Hearing Aids: No Dentures/Partials: No Hand Dominance: Right Upper Extremity ROM WFL, BUE shoulder flexion to approx 150 degrees, able to touch behind his head and behind his back. Upper Extremity Coordination WFL Upper Extremity Strength grossly 4/5 BUEs ADL-Treatment Eating (QC): 6 (Per pt report. ) Oral Hygiene (QC): 6 (standing at sink) Shower/Bathe Self (QC): 3 (Min A with buttocks and thoroughness of feet.) Upper Body Dressing (QC): 5 (set up with tack puller shirt.) Lower Body Dressing (QC): 2 (Max A with threading BLEs into pants, pt able to manage pant hike.) On/Off Footwear (QC): 3 (Mod A. Pt able to doff gripper socks, assist with donning.) Toileting Hygiene (QC): 3 (Min A with hygiene, pt able to manage pants.) Other Treatments OT evaluation complete. OT/PT cotreat due to skill of 2 clinicians required whic h a rehabilitation tech could not perform in order to coordinate UE/LEs, decrease fall risk, and due to pt's limitations in fatigue, activity tolerance, and transfers/mobility. OT focused on UE placement, cues for sequencing and safety, and ADLS, PT focused on LE placement, gross overall movement, transfers/mobility. Pt completed showering, dressing, and oral care in bathroom, SBA with mobility/transfers. Pt used FWW to therapy gym, activity performed in standing to increase dynamic standing tolerance. Pt completed x2 pipe tree diagrams. Then picked up cones from various levels around the room using FWW. Pt returned to his room, end of cotreat. Pt used FWW to transfer into bathroom, stood at toilet to urinate, SBA for urination only, pt would require min A With BM. Pt then transferred to recliner, changed pants. Pt required min A to don shorts using senior sql server dba. Pt educated on sock aide, able to doff socks without AE, min A with donning using wide sock aide. OT provided pt with toilet tongs and educated on how to use. Toilet tongs left in bathroom for pt to trial next BM. Pt transferred to bed, and supine SBA. Post tx, pt in bed, call light in reach and all needs met. Education OT Patient Education: Correct positioning, Energy conservation, Exercise program, Modified ADL techniques, Progress toward Goal/Update tx plan, Purpose of tx/functional activities, Rehab process Teaching Recipient: Patient Teaching Methods: Discussion Response to Teaching: Verbalize Understanding OT Short Term Goals Short Term Goals Time Frame: Jun 14, 2022 Shower/bathe self: 4 Lower body dressin Putting on/taking off footwear: 4 OT Prison Goals Prison Goals Time Frame: Jun 30, 2022 Acute change in mental status: 0 Inattention: 0 Disorganized thinkin Altered level of consciousness: 0 Eating (QC): 6 Oral Hygiene (QC): 6 Toileting Hygiene (QC): 6 Shower/Bathe Self (QC): 6 Upper Body Dressing (QC): 6 Lower Body Dressing (QC): 6 On/Off Footwear (QC): 6 Additional Goals: 1-Demonstrate ADL Tasks, 2-Verbalize Understanding, 3-ImproveStrength/[place] 1=Demonstrate adherence to instructed precautions during ADL tasks. 2=Patient will verbalize/demonstrate understanding of assistive devices/modifications for ADL. 3=Patient will improve strength/tolerance for activity to enable patient to perf orm ADL's. OT Education/Plan Problem List/Assessment Assessment: Decreased Activ Tolerance, Decreased UE Strength, Impaired Funct Balance, Impaired I ADL's, Impaired Self-Care Skills Discharge Recommendations Plan/Recommendations: Continue POC Equpiment Recommendations-D/C: Extended Bath Bench Treatment Plan/Plan of Care Patient would benefit from OT for education, treatment and training to promote independence in ADL's, mobility, safety and/or upper extremity function for ADL's. Plan of Care: ADL Retraining, Functional Mobility, Group Exercise/Act as Ind, UE Funct Exercise/Act Treatment Duration: Jun 30, 2022 Frequency: At least 5 of 7 days/Wk (IRF) Estimated Hrs Per Day: 1.5 hours per day Agreement: Yes Rehab Potential: Good Time/GCodes Start Time: 14:10 Stop Time: 15:40 Total Time Billed (hr/min): 90 Billed Treatment Time 8867-2646 OT evaluation (10'), Cotreat [id number] (65'), OT tx [id number] (15') 1, EVL (10'), ADL 3 (45'), FA 2 (35') VERONICA SHEPPARD OT Jun 06, 2022 14:20
--- NOTE | 2022-06-06 14:21 | Physical Therapy Evaluation ---
PT Evaluation-General Medical Diagnosis Admission Date Jun 06, 2022 at 13:45 Medical Diagnosis: debility Onset Date: Jun 06, 2022 Therapy Diagnosis Therapy Diagnosis: impaired mobility/weakness Precautions Precautions/Isolations: Fall Prevention, Standard Precautions Referral Physician: Gail Reason for Referral: Evaluation/Treatment Medical History Pertinent Medical History: Atrial Fib History of Falls (past yr): Yes Prior Surgery (last 100 days): No Additional Medical History Covid Current History transfer from [place] (post covid/right LE cellulitis)[facility] 05/12/22 with c/o RLE pain, found to be hypoxic, PNA, and LE cellulitis, complicated by afib with RVR. Pt transferred to [place] 05/19/22. then transferred to [facility] 06/06/22. Reviewed History: Yes Social History Home: Single Level Current Living Status: Spouse Entry Into Home: Stairs Without Railing (4" platform step) Prior Prior Level of Function SCALE: Activities may be completed with or without assistive devices. 6-Cvcjfegzff-qavfhvw completes the activity by him/herself with no assistance from a helper. 5-Set-up or Clean-up Assistance-helper sets up or cleans up; patient completes activity. [place] assists only prior to or following the activity. 4-Supervision or Touching Assistance-helper provides verbal cues and/or touching/steadying and/or contact guard assistance as patient completes activity. Assistance may be provided throughout the activity or intermittently. 3-Partial/Moderate Assistance-helper does LESS THAN HALF the effort. [place] lifts, holds or supports trunk or limbs, but provides less than half the effort. 2-Substantial/Maximal Assistance-helper does MORE THAN HALF the effort. [place] lifts or holds trunk or limbs and provides more than half the effort. 4-Hpmirkizu-tnhlrm does ALL the effort. Patient does none of the effort to complete the activity. Or, the assistance of 2 or more helpers is required for the patient to complete the activity. If activity was not attempted, code reason: 7-Patient Refused. 9-Not Applicable-not attempted and the patient did not perform the activity before the current illness, exacerbation or injury. 10-Not Attempted due to Environmental Limitations-(lack of equipment, weather restraints, etc.). 88-Not Attempted due to Medical Conditions or Safety Concerns. Bed Mobility: 6 Transfers (B,C,W/C): 6 Gait: 6 Stairs: 6 Indoor Mobility (Ambulation): Independent Stairs: Independent Prior Devices Use: None worked as a vp integrity PT Evaluation-Current Subjective Patient agrees to PT. Pain Numeric Pain Scale: 0-No Pain Location: No Pain Reported Section J - Health Conditions 1. Rarely or not at all 2. Occasionally 3. Frequently 4. Almost constantly 8. Unable to answer Pain Effect on Sleep: 1 Pain Interference with Therapy: 1 Pain Interference w/Day-to-Day: 1 Objective Patient Orientation: Normal For Age ROM/Strength ROM Lower Extremities bilateral LE WFL ( noted edema ) Strength Lower Extremities 4-/5 grossly bilateral LE all planes Integumentary/Posture Integumentary refer to nursing notes Bowel Incontinence: No Bladder Incontinence: No Posture WFL Neuromuscular (Tone, Coordination, Reflexes) grossly intact Sensory Vision: Wears Glasses Hearing: Functional Sensation Right Lower Extremit: Intact Sensation Left Lower Extremity: Intact Transfers Roll Left & Right (QC): 6 Sit to Lying (QC): 6 Lying to Sitting/Side of Bed(Q: 6 Sit to Stand (QC): 4 Chair/Upt-if-Dbmwr Xfer(QC): 4 Toilet Transfer (QC): 4 Car Transfer (QC): 4 SBA Gait Mode of Locomotion: Walk Anticipated Mode of Locomotion: Walk Walk 10 feet (QC): 4 Walk 50 ft with 2 Turns(QC): 4 Walk 150 ft (QC): 4 Walking 10ft/uneven surface-QC: 4 Distance: 175' x 4 Gait Assistive Device: FWW Comments/Gait Description WBOS due to bilateral LE edema Wheelchair Training Does the Pt Use a Wheelchair?: No Wheel 50 ft with 2 turns (QC): 9 Wheel 150 ft (QC): 9 Type of Wheelchair: N/A Stairs #of Steps: 8 1 Step (curb) (QC): 4 4 Steps (QC): 4 12 Steps (QC): 88 Balance Sitting Static: Normal Sitting Dynamic: Normal Standing Static: Normal Standing Dynamic: Normal Picking up an Object (QC): 88 Treatment OT/PT cotreat due to skill of 2 clinicians required which a homemaking rehabilitation consultant could not perform in order to coordinate UE/LEs, decrease fall risk, and due to pt's limitations in fatigue, activity tolerance, and transfers/mobility. OT focused on UE placement, cues for sequencing and safety, and ADLS, PT focused on LE placement, gross overall movement, transfers/mobility. Pt completed showering, dressing, and oral care in bathroom, SBA with mobility/transfers. PT addressed standing tolerance with OT addressing fine motor skills with pipe building activity Assessment/Needs Patient will be seen by skilled PT to address functional strength and mobility to improve current LOF to safely return to home at maximum LOF. Rehab Potential: Fair PT Athletic Turf Worker Goals Long-Term Goals PT Long-Term Goals Time Frame: Jun 24, 2022 Transfers (B,C,W/C) (FIM): 6 PT OT Pain Eval : Numeric Pain Scale: 0-No Pain Location: No Pain Reported Scoring Section J - Health Conditions 1. Rarely or not at all 2. Occasionally 3. Frequently 4. Almost constantly 8. Unable to answer Pain Effect on Sleep: 1 Pain Interference with Therapy: 1 Pain Interference w/Day-to-Day: 1 Roll Left to Right (QC): 6 Sit to Lying (QC): 6 Lying-Sitting on Side/Bed(QC): 6 Sit to Stand (QC): 6 Chair/Ytp-bx-Mcmyl Xfer(QC): 6 Car Transfer (QC): 6 Does the Patient Walk: Yes Walk 10 feet (QC): 6 Walk 10ft-Uneven Surface(QC): 6 Walk 50ft with 2 Turns (QC): 6 Walk 150 ft (QC): 6 Gait Level of Assist: 6 Gait Assistive Device: FWW # of Steps: 12 1 Step (curb) (QC): 4 4 Steps (QC): 4 12 Steps (QC): 4 Stairs Level Of Assist: 4 Picking up an Object (QC): 6 PT Plan Problem List Problem List: Activity Tolerance, Functional Strength, Safety, Balance, Gait, Transfer, Bed Mobility Treatment/Plan Treatment Plan: Continue Plan of Care Treatment Plan: Bed Mobility, Concurrent Therapy, Education, Functional Activity [place], Functional Strength, Group Therapy, Gait, Safety, Therapeutic Exercise, Transfers Treatment Duration: Jun 24, 2022 Frequency: At least 5 of 7 days/Wk (IRF) Estimated Hrs Per Day: 1.5 hours per day Patient and/or Family Agrees t: Yes Time/GCodes Time In: 1345 Time Out: 1525 Total Billed Treatment Time: 90 Total Billed Treatment 1 visit EVModC 25 min (8599-3399) OT eval (9340-1335) FA x 4 65 min (cotreat with OT [id number]) AMILCAR MESA PT Jun 06, 2022 14:21
--- NOTE | 2022-06-06 15:20 | Progress Note ---
ARAMIS FONTENOT 06/06/22 1520: Progress Note CC: Debility/Weakness HPI: Patient is a 67 year old M with history of HTN. HLD, CVA, A fib on xarelto, nonischemic cardiomyopathy, Pneumonia, CKD stage 3, Anasarca, and recent COVID. Patient was admitted to [facility] after being treated for RLE cellulitis which led to sepsis and recurrent Afib with RVR in the ICU at [facility], [place]. At [facility], he was to continue Rocephin for his pneumonia treatment, wound care of the RLE, receive OT/PT, and continue cardiac monitoring during his recovery. The patient completed Rocephin on 05/22 and was receiving Bumex and Metolazone to help with overall diuresis. Right leg swelling and overall anasarca improved throughout patient's stay at [facility]. He worked with therapy throughout the stay and also received supportive care measures. Today patient is resting comfortably in bed. He states he is here to work on getting stronger and more independent before he goes home. He says he is able to move around and do his day to day activities but sometimes gets tired with exertion. 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 He is no longer using oxygen and does not want to depend on it. He also states he is able to urinate on his own and has been having regular BMs. On exam, patient showed me a rash over his groin area which he says started about a week ago after taking his catheter out. He also states that he has some bed sores on his bottom. He states he had been receiving topical treatment for those at [facility]. Lower extremities are still with some edema, but much improved when compared to his previous hospitalization in the ICU. Denies any other complaints at this time. PMH: HTN HLD CVA Atrial Fibrillation NonIschemic cardiomyopathy, EF 20-30% Pneumonia Chronic Kidney Disease Stage 3 Anasarca Recent COVID RLE Cellulitis Thrombocytopenia PSH: Cardioversion Allergies: None Home Meds: Amiodarone 600mg Apixaban 10 mg Carvedilol 3.125 mg BID Digoxin 125 mcg tab BID Docusate sodium 100mg CAP BID famotidine 20 mg tab BID lactobacillus acidophilus ORAL tab with pectin polyethylene glycol powder potassium chloride 20 mEq ER tab 40 mEq BID Senna 8.6 tab BID Skin protectants Thiamine B1 100 mg tab acetaminophen oral 325 mg Q6H albuterol 2.5 mg/3mL inhalation Alteplase 2mg once PRN Lactulose naloxone injectable prn norepinephrine 1mg/ml prn ondansetron 4mg/2ml vial Q6H prn Oxycodone-acetaminophen 5mg-325mg TAB Q8H prn Social History: Never a smoker. 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 Family History: NONE ROS: Denies any fever, chills, chest pain. Short of breath with exertion. Exam: General: Patient appears to be comfortable and in no acute distress. Heart: HRRR, no murmurs Lungs: CTAB, No accessory muscle use Extremities: BLE with edema due to Anasarca Skin: rash over the bilateral groin area and in the inguinal folds, extending onto the medial thighs Labs/Imaging: none Assessment: Debility/Weakness due to recent hospitalization History of Right Lower Extremity Cellulitis and Sepsis History of Acute on Chronic Kidney Disease due to diuretic use History of Acute on Chronic systolic CHF with exacerbation Recent COVID infection HTN HLD CVA Anasarca Plan: Supportive Care Continue home meds PT/OT Speech Therapy DVT Prophylaxis Monitor labs and replace prn Regular Diet ALLY KENNEDY DO 06/07/2218: Supervisory-Addendum Brief Verification & Attestation Participated in pt care: history, MDM, physical Personally performed: exam, history, MDM, supervision of care Care discussed with: Medical Student Procedures: n/a Results interpretation: Verified all documentation Verification and Attestation of Medical Student E/M Service A medical student performed and documented this service in my presence. I reviewed and verified all information documented by the medical student and made modifications to such information, when appropriate. I personally performed the physical exam and medical decision making. Ally Kennedy Jun 07, 2022,05:18 ARAMIS FONTENOT Jun 06, 2022 15:20 ALLY KENNEDY DO Jun 07, 2022 05:18
[2022-06-06] MEDS ORDERED: ACETAMINOPHEN ER 650 MG (TYLENOL ARTHRITIS) PO PRN (17:45)
--- NOTE | 2022-06-06 17:51 | PM&R Post Admission Assessment ---
PM&R Date of Visit: Jun 06, 2022 Time of Visit: 17:45 History of Present Illness CC: Myopathy HPI: This is a 67yoWM clinic patient of mine who I transferred to [facility] on 05/19/22 from ICU 4 due to critical illness s/p respiratory failure but could not tolerate biPAP with volume overload, leg cellulitis and AF RVR recurrent type with anemia who is now at [facility] in need of aggressive therapy in order to return back to independent living with his . His bowels are moving and he is voiding without a catheter for the past 4 days. No pain is reported but he is having a significant rash on arms and rest of body and is maintained on yeast treatment PO and cream. Overall he remains weak and in need of AD to help increase stamina. CC: Debility/Weakness HPI: Patient is a 67 year old M with history of HTN. HLD, CVA, A fib on xarelto, nonischemic cardiomyopathy, Pneumonia, CKD stage 3, Anasarca, and recent COVID. Patient was admitted to [facility] after being treated for RLE cellulitis which led to sepsis and recurrent Afib with RVR in the ICU at [facility]. At [facility], he was to continue Rocephin for his pneumonia treatment, wound care of the RLE, receive OT/PT, and continue cardiac monitoring during his recovery. The patient completed Rocephin on 05/22 and was receiving Bumex and Metolazone to help with overall diuresis. Right leg swelling and overall anasarca improved throughout patient's stay at [facility]. He worked with therapy throughout the stay and also received supportive care measures. Today patient is resting comfortably in bed. He states he is here to work on getting stronger and more independent before he goes home. He says he is able to move around and do his day to day activities but sometimes gets tired with exertion. 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 He is no longer using oxygen and does not want to depend on it. He also states he is able to urinate on his own and has been having regular BMs. On exam, patient showed me a rash over his groin area which he says started about a week ago after taking his catheter out. He also states that he has some bed sores on his bottom. He states he had been receiving topical treatment for those at [facility]. Lower extremities are still with some edema, but much improved when compared to his previous hospitalization in the ICU. Denies any other complaints at this time. PMH: HTN HLD CVA Atrial Fibrillation NonIschemic cardiomyopathy, EF 20-30% Pneumonia Chronic Kidney Disease Stage 3 Anasarca Recent COVID RLE Cellulitis Thrombocytopenia PSH: Cardioversion Allergies: None Home Meds: Amiodarone 600mg Apixaban 10 mg Carvedilol 3.125 mg BID Digoxin 125 mcg tab BID Docusate sodium 100mg CAP BID famotidine 20 mg tab BID lactobacillus acidophilus ORAL tab with pectin polyethylene glycol powder potassium chloride 20 mEq ER tab 40 mEq BID Senna 8.6 tab BID Skin protectants Thiamine B1 100 mg tab acetaminophen oral 325 mg Q6H albuterol 2.5 mg/3mL inhalation Alteplase 2mg once PRN Lactulose naloxone injectable prn norepinephrine 1mg/ml prn ondansetron 4mg/2ml vial Q6H prn Oxycodone-acetaminophen 5mg-325mg TAB Q8H prn Social History: Never a smoker. 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 Family History: NONE ROS: Denies any fever, chills, chest pain. Short of breath with exertion. Exam: General: Patient appears to be comfortable and in no acute distress. Heart: HRRR, no murmurs Lungs: CTAB, No accessory muscle use Extremities: BLE with edema due to Anasarca Skin: rash over the bilateral groin area and in the inguinal folds, extending onto the medial thighs Labs/Imaging: none Assessment: Debility/Weakness due to recent hospitalization History of Right Lower Extremity Cellulitis and Sepsis History of Acute on Chronic Kidney Disease due to diuretic use History of Acute on Chronic systolic CHF with exacerbation Recent COVID infection HTN HLD CVA Anasarca Plan: Supportive Care Continue home meds PT/OT Speech Therapy DVT Prophylaxis Monitor labs and replace prn Regular Diet Past Saqqhrt-Wpqjwc-Tptgrh Hx Past Med/Social Hx: Reviewed Nursing Past Med/Soc Hx, Reviewed and Corrections made Patient Social History Marrital Status: Employed/Student: employed Alcohol Use: Denies Use Smoking Status: Never a Smoker Recent Hopitalizations: No Immunizations Up To Date Tetanus Booster (TDap): Unknown Seasonal Allergies Seasonal Allergies: No Past Medical History Cardiac: Atrial Fibrillation, Chronic Edema/Swelling, High Cholesterol, Hypertension Neurological: Stroke, TIA History of Blood Disorders: No Family History Other Conditions/Hx Prior Level of Function Bed Mobility: 6 Transfers: 6 Gait: 6 Stairs: 6 Indoor Mobility (Ambulation): Independent Stairs: Independent Prior Devices Use: None Self Care: Independent Functional Cognition: Independent Current Level of Fuctioning Roll Left to Right: 6 Sit to Lyin Lying to Sitting/Side of Bed: 6 Sit to Stand: 4 Chair/Zft-su-Nyqvx Xfer: 4 Car Transfer: 4 Mode of Locomotion: Walk Anticipated Mode of Locomotion: Walk Walk 10 feet: 4 Walk 50 ft with 2 Turns: 4 Walk 150 ft: 4 Walking 10ft on uneven surface: 4 Gait Assistive Device: FWW Does the Pt Use a Wheelchair: No Wheel 50 ft with 2 turns: 9 Wheel 150 ft: 9 Type of Wheelchair: N/A #of Steps: 8 1 Step (curb): 4 4 Steps: 4 12 Steps: 88 Picking up an Object: 88 Eatin (Per pt report. ) Oral Hygiene: 6 (standing at sink) Shower/Bathe Self: 3 (Min A with buttocks and thoroughness of feet.) Upper Body Dressin (set up with hook puller shirt.) Lower Body Dressin (Max A with threading BLEs into pants, pt able to manage pant hike.) On/Off Footwear: 3 (Mod A. Pt able to doff gripper socks, assist with donning.) Toileting Hygiene: 3 (Min A with hygiene, pt able to manage pants.) PM&R Allergy/Meds/Data Review Allergies Coded Allergies: No Known Drug Allergies (Unverified , 06/04/20) Home Medications Scheduled Amiodarone HCl (Amiodarone HCl), 200 MG PO BID, (Reported) Amiodarone HCl (Amiodarone HCl), 200 MG PO DAILY, (Reported) Apixaban (Eliquis), 5 MG PO BID, (Reported) Carvedilol (Carvedilol), 3.125 MG PO BID, (Reported) Docusate Sodium (Docusate Sodium), 100 MG PO BID, (Reported) Famotidine (Famotidine), 20 MG PO BID, (Reported) Fluconazole (Fluconazole), 100 MG PO DAILY, (Reported) Lactobacillus Acidophilus/Pect (Acidophilus-Pectin Capsule), 1 EACH PO DAILY, (Reported) Nystatin (Nystatin), 1 APPLIC TP Q8H, (Reported) Polyethylene Glycol 3350 (Miralax), 17 GM PO DAILY, (Reported) Sennosides (Senna), 8.6 MG PO BID, (Reported) Thiamine HCl (Vitamin B-1), 100 MG PO DAILY, (Reported) Scheduled PRN Acetaminophen (Tylenol 8 Hour), 650 MG PO Q6H PRN for PAIN-MILD (1-4) OR TEMPATURE, (Reported) Nystatin (Nystatin), 1 APPLIC TP Q6H PRN for RASH, (Reported) Discontinued Medications Albuterol Sulfate (Proair Hfa), 2 PUFF IH Q4H PRN for SHORTNESS OF BREATH, (Reported) Discontinued Reason: No Longer Taking Albuterol Sulfate (Albuterol Sulfate), 2.5 MG INH RTQ4HR PRN for SOA Discontinued Reason: No Longer Taking Amiodarone HCl (Amiodarone HCl), 400 MG PO BID Discontinued Reason: No Longer Taking Ceftriaxone Na/Dextrose,Iso (Ceftriaxone 2 gm Piggyback), 2 GM IV DAILY Discontinued Reason: No Longer Taking Digoxin (Digox), 0.25 MG PO DAILY Discontinued Reason: No Longer Taking Furosemide (Furosemide), 40 MG IVP BID@0700,1700 Discontinued Reason: No Longer Taking Potassium Chloride (Potassium Chloride), 20 MEQ PO 0800,1700, (Reported) Discontinued Reason: No Longer Taking Current Medications Current Medications Reviewed Review of Systems Constitutional: see HPI, malaise, weakness EENTM: no symptoms reported Respiratory: dyspnea on exertion Cardiovascular: edema Gastrointestinal: no symptoms reported Genitourinary: no symptoms reported Musculoskeletal: back pain, joint pain Skin: see HPI Psychiatric/Neurological: Anxiety All Other Systems Reviewed Negative Unless Noted: Yes Physical Exam Physical Exam Vital Signs Vital Signs - First Documented 06/06/22 06/06/22 13:45 17:07 Temp 37.1 Pulse 62 Resp 20 B/P (MAP) 111/61 (78) Pulse Ox 96 O2 Delivery Room Air O2 Flow Rate 2.00 Capillary Refill : Height, Weight, BMI Height: '" Weight: lbs. oz. kg; 36.62 BMI Method: General Appearance: No Apparent Distress, WD/WN, Chronically ill Eyes: Bilateral Eye Normal Inspection, Bilateral Eye PERRL HEENT: PERRL/EOMI, Normal ENT Inspection, Pharynx Normal Neck: Full Range of Motion, Normal Inspection, Non Tender, Supple, Carotid Bruit Respiratory: Chest Non Tender, Lungs Clear, Normal Breath Sounds, No Accessory Muscle Use, No Respiratory Distress Cardiovascular: No Edema, No Gallop, No JVD, No Murmur, Normal Peripheral Pulses, Irregularly Irregular Gastrointestinal: Normal Bowel Sounds, No Organomegaly, No Pulsatile Mass, Non Tender, Soft Back: Normal Inspection, No CVA Tenderness, No Vertebral Tenderness Extremity: Normal Capillary Refill, Normal Inspection, Normal Range of Motion, Non Tender, No Calf Tenderness, No Pedal Edema Neurologic/Psychiatric: Alert, Oriented x3, Normal Mood/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, 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 Norm as Tested, Abnormal Gait, Depressed Affect, Motor Weakness Skin: Normal Color, Warm/Dry, Rash (dried skin arms and legs) Lymphatic: No Adenopathy PM&R Medical Assessment & Plan REHAB/MEDICAL ASSESSMENT AND PLAN: REHAB IMPAIRMENT GROUP: Myopathy ETIOLOGIC DIAGNOSIS: Myopathy The comorbidities that impact the patients function and/or functional outcome by: recurrent AF RVR, edema, recent COVID, hypoxia, edema, severe weakness REHAB PLAN: The patient is being admitted to our comprehensive inpatient rehabilitation facility and can tolerate the intensity of service consisting of at least: 180 minutes of therapy a day, 5 out of 7 days a week Rehab treatment will consist of: PT OT will focus on regaining function with use of AD along with increasing stamina with use of O2 and monitoring of edema and helping regain independence The patient/family has a good understanding of our discharge process and will benefit from an interdisciplinary inpatient rehabilitation program. The patient has potential to make improvement and is in need of at least two of the following multidisciplinary therapies including but not limited to physical, oc cupational, speech, and prosthetics and orthotics. Additionally the patient will need services from respiratory, nutritional services, wound care, psychology, etc. (Customize this to each patient). Given the patients complex condition and risk of further medical complications, rehabilitation services cannot be safely or effectively provided at a lower level of care such as a skil led nursing facility. BARRIERS TO DISCHARGE: Severe weakness with cardiac dysfunction ESTIMATED LOS: 10 days DISPOSITION: Home RELEVANT CHANGES SINCE PREADMISSION SCREENING: I have compared the patients medical and functional status at the time of the preadmission screening and there are: no changes PROGNOSIS: Good REHABILITATION GOALS: 1. PT OT will focus on regaining function with use of AD along with increasing stamina with use of O2 and monitoring of edema and helping regain independence All the above goals were reviewed with the patient and he/she is in agreement. By signing this document, I acknowledge that I have personally performed a full physical examination on this patient within 24 hours of admission to this inpatient rehabilitation facility and have determined the patient to be able to tolerate the above course of treatment at an intensive level for a reasonable period of time. I will be completing a detailed individualized Plan of Care for this patient by day #4 of the patients stay based upon the Preadmission Screen, the Post-Admission Evaluation, and the therapy evaluations. Admission Dx/Comorbidities: (1) Acute on chronic HFrEF (heart failure with reduced ejection fraction) ICD Codes: I50.23 - Acute on chronic systolic (congestive) heart failure (2) Persistent atrial fibrillation ICD Codes: I48.19 - Other persistent atrial fibrillation (3) Cardiomyopathy ICD Codes: I42.9 - Cardiomyopathy, unspecified Assessment/Plan Assessment and Plan Assess & Plan/Chief Complaint Assessment: Myopathy s/p cardiogenic shock Pulmonary Hypertension with Mitral Regurgitation Heart Failure due to Afib RVR Hypokalemia h/o Acute on chronic respiratory failure Recent Pneumonia Resolved right lower extremity cellulitis Recent Acute kidney injury Anasarca Atrial fibrillation w/RVR now much improved on Amiodarone Recent COVID Central line required due to critical illness Coagulopathy due to Eliquis and acute renal failure Chronic hypoxia supplemental oxygen required since last admit Plan: Intense therapy Dr Uribe consult Rash management GISELLA KENNEDY DO Jun 06, 2022 17:51
[2022-06-06 20:19] VITALS: BP 90/52
[2022-06-06] MEDS: MICONAZOLE 2% POWDER (DESENEX AF) 90 GM TOP SCH (20:36)
[2022-06-06] MEDS: MICONAZOLE NITRATE 2% CRM 30 GM TP SCH (20:36)
[2022-06-06] MEDS: DOCUSATE SODIUM 100 MG (COLACE) CAP PO SCH (20:37)
[2022-06-06] MEDS: SENNOSIDES 8.6 MG (SENOKOT) TAB PO SCH (20:37)
[2022-06-06] MEDS: AMIODARONE 200 MG (CORDARONE) TAB PO SCH (20:37)
[2022-06-06] MEDS: APIXABAN 5 MG (ELIQUIS) TABLET PO SCH (20:41)
[2022-06-06] MEDS: FAMOTIDINE 20 MG (PEPCID) TABLET PO SCH (20:41)
[2022-06-06] MEDS: MAGNESIUM OXIDE (MAG-OX)400 MG TAB PO SCH (20:41)
[2022-06-06] MEDS ORDERED: DOCUSATE SODIUM 100 MG (COLACE) CAP PO SCH (21:00)
[2022-06-06] MEDS ORDERED: SENNA W/DOCUSATE (SENOKOT S) TABLET PO SCH (21:00)
[2022-06-06] MEDS ORDERED: polyethylene glycoL POWDER 17 GM (MIRALAX) PACK PO SCH (21:00)
[2022-06-06 21:30] VITALS: BP 104/56
[2022-06-06] MEDS ORDERED: NYSTATIN CREAM (MYCOSTATIN) 30 GM TUBE TP SCH (22:00)
--- NOTE | 2022-06-07 05:57 | PM&R Progress Note ---
Subjective HPI/CC On Admission Date Seen by Provider: Jun 07, 2022 Time Seen by Provider: 08:30 Subjective/Events-last exam 06/07/2022: Patient doing well overall Frustrated he is still wearing O2 No pain Rash appears improved Reviewed meds Dr Uribe evaluating his cardiac meds and BP meds Review of Systems General: Fatigue, Malaise Objective Exam Vital Signs Vital Signs Date Time Temp Pulse Resp B/P (MAP) Pulse Ox O2 Delivery O2 Flow Rate FiO2 06/07/22 21:00 Nasal Cannula 2.00 06/07/22 20:10 36.4 62 18 108/54 (72) 98 Capillary Refill : General Appearance: No Apparent Distress, WD/WN, Chronically ill HEENT: PERRL/EOMI, Normal ENT Inspection, Pharynx Normal Neck: Full Range of Motion, Normal Inspection, Non Tender, Supple, Carotid Bruit Respiratory: Chest Non Tender, Lungs Clear, Normal Breath Sounds, No Accessory Muscle Use, No Respiratory Distress Cardiovascular: No Edema, No Gallop, No JVD, No Murmur, Normal Peripheral Pulses, Irregularly Irregular Gastrointestinal: Normal Bowel Sounds, No Organomegaly, No Pulsatile Mass, Non Tender, Soft Back: Normal Inspection, No CVA Tenderness, No Vertebral Tenderness Extremity: Normal Capillary Refill, Normal Inspection, Normal Range of Motion, Non Tender, No Calf Tenderness, No Pedal Edema Neurologic/Psychiatric: Alert, Oriented x3, Normal Mood/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 FIM Transfers Therapy Code Descriptions/Definitions Functional [place] Measure: 0=Not Assessed/NA 4=Minimal Assistance 1=Total Assistance 5=Supervision or Setup 2=Maximal Assistance 6=Modified [place] 3=Moderate Assistance 7=Complete IndependenceSCALE: Activities may be completed with or without assistive devices. 9-Saboemlubw-eclalld completes the activity by him/herself with no assistance from a helper. 5-Set-up or Clean-up Assistance-helper sets up or cleans up; patient completes activity. [place] [employer] assists only prior to or following the activity. 4-Supervision or Touching Assistance-helper provides verbal cues and/or touching/steadying and/or contact guard assistance as patient completes activity. Assistance may be provided throughout the activity or intermittently. 3-Partial/Moderate Assistance-helper does LESS THAN HALF the effort. [employer] lifts, holds or supports trunk or limbs, but provides less than half the effort. 2-Substantial/Maximal Assistance-helper does MORE THAN HALF the effort. [employer] lifts or holds trunk or limbs and provides more than half the effort. 5-Mmllgtmzy-ezgdaz does ALL the effort. Patient does none of the effort to complete the activity. Or, the assistance of 2 or more helpers is required for t he patient to complete the activity. If activity was not attempted, code reason: 7-Patient Refused. 9-Not Applicable-not attempted and the patient did not perform the activity before the current illness, exacerbation or injury. 10-Not Attempted due to Environmental Limitations-(lack of equipment, weather restraints, etc.). 88-Not Attempted due to Medical Conditions or Safety Concerns. Roll Left to Right (QC): 6 Sit to Lying (QC): 6 Sit to Stand (QC): 4 Chair/Xld-tp-Qpbhp Xfer(QC): 4 Car Transfer (QC): 4 Gait Training Walk 10 feet (QC): 4 Walk 50 ft with 2 Turns(QC): 4 Walk 150 ft (QC): 4 Walking 10ft/uneven surface-QC: 4 Gait Assistive Device: FWW Wheelchair Training Does the Pt Use a Wheelchair?: No Wheel 50 ft with 2 turns (QC): 9 Wheel 150 ft (QC): 9 Type of Wheelchair: N/A Stair Training #of Steps: 8 1 Step (curb) (QC): 4 4 Steps (QC): 4 12 Steps (QC): 88 Balance Picking up an Object (QC): 88 ADL-Treatment Eating (QC): 6 (Per pt report. ) Oral Hygiene (QC): 6 (standing at sink) Shower/Bathe Self (QC): 3 (Min A with buttocks and thoroughness of feet.) Upper Body Dressing (QC): 5 (set up with pull up hand shirt.) Lower Body Dressing (QC): 2 (Max A with threading BLEs into pants, pt able to manage pant hike.) On/Off Footwear (QC): 3 (Mod A. Pt able to doff gripper socks, assist with donning.) Toileting Hygiene (QC): 3 (Min A with hygiene, pt able to manage pants.) Assessment/Plan Assessment and Plan Assess & Plan/Chief Complaint Assessment: Myopathy s/p cardiogenic shock Pulmonary Hypertension with Mitral Regurgitation Heart Failure due to Afib RVR Hypokalemia h/o Acute on chronic respiratory failure Recent Pneumonia Resolved right lower extremity cellulitis Recent Acute kidney injury Anasarca Atrial fibrillation w/RVR now much improved on Amiodarone Recent COVID Central line required due to critical illness Coagulopathy due to Eliquis and acute renal failure Chronic hypoxia supplemental oxygen required since last admit Plan: Intense therapy Dr Uribe consult Rash management 06/07/2022: Monitor closely Rash treatment (1) Acute on chronic HFrEF (heart failure with reduced ejection fraction) (2) Persistent atrial fibrillation (3) Cardiomyopathy GISELLA KENNEDY DO Jun 07, 2022 05:57
--- NOTE | 2022-06-07 05:57 | Individualized Plan of Care ---
Individualized Plan of Care Rehab Nursing IPOC Order Admission Date Jun 06, 2022 at 13:45 Current Orders Orders Admission Order(Inpt,Obs,Sdc) (06/06/22 12:07) Vital Signs: Per Unit Policy ( 08,16,00 (06/06/22 12:07) Aldair Ceja 09,21 (06/06/22 12:07) Sequential Compression Device (06/06/22 12:07) Grinding And Polishing Laborer-Inpt Rehab Con (06/06/22 12:07) Rehab Nursing Orders-Ipoc (06/06/22 12:07) Physical Therapy Rehab Orders (06/06/22 12:07) Occupational Therapy Rehab Ord (06/06/22 12:07) Speech Therapy Rehab Orders (06/06/22 12:07) Cbc With Automated Diff (06/07/22 06:00) Comprehensive Metabolic Panel (06/07/22 06:00) Precautions (Aru) (06/06/22 12:07) Weekly Weight WEEK (06/06/22 12:07) Rehab-Intensity Of Therapy (06/06/22 12:07) Alprazolam Tablet (Xanax Tablet) (06/06/22 12:15) Calcium Carbonate Chew Tablet (Antacid C (06/06/22 12:15) Diphenhydramine Tablet (Benadryl Tablet) (06/06/22 12:15) Docusate Sodium Capsule (Colace Capsule) (06/06/22 21:00) Docusate Sodium Capsule (Colace Capsule) (06/06/22 12:15) Bisacodyl Suppository (Dulcolax Supposit (06/06/22 12:15) Lactulose Oral Solution (Enulose Oral So (06/06/22 12:15) Na Phos/Na Biphos Enema (Fleet Enema Shawn (06/06/22 12:15) Guaifenesin/Codeine Syrup (Robitussin Ac (06/06/22 12:15) Loperamide Tablet (Imodium Tablet) (06/06/22 12:15) Melatonin Tablet (Melatonin Tablet) (06/06/22 12:15) Polyethylene Glycol Powder Pkt (Miralax (06/06/22 21:00) Ondansetron Oral Dissolve Tab (Zofran (06/06/22 12:15) Senna S Tablet (Senokot S Tablet) (06/06/22 21:00) Acetaminophen Tablet/Caplet (Tylenol T (06/06/22 12:15) Code/Resuscitation (06/06/22 12:07) Initiate Admission Nursing Pro .admission (06/06/22 12:07) Admission Arrival Bed Request (06/06/22 13:56) Patient Visit (06/06/22 ) Pt Eval Moderate Complexity (06/06/22 ) Functional Activities, Ea 15 (06/06/22 ) Miconazole 2% Powder (Phytoplex Af 2% Po (06/06/22 21:00) Miconazole Nitrate 2% Crm (Micaderm 2% C (06/06/22 21:00) Rt Request For Service (06/06/22 16:56) Code/Resuscitation (06/06/22 16:56) Sodium 2g (2000 Mg) (06/06/22 Dinner) Acetaminophen Arthritis (Tylenol Arthrit (06/06/22 17:45) Amiodarone Tablet (Cordarone Tablet) (06/06/22 21:00) Apixaban Tablet (Eliquis Tablet) (06/06/22 21:00) Carvedilol Tablet (Coreg Tablet) (06/06/22 21:00) Docusate Sodium Capsule (Colace Capsule) (06/06/22 21:00) Famotidine Tablet (Pepcid Tablet) (06/06/22 21:00) Fluconazole Tablet (Diflucan Tablet) (06/07/22 09:00) Lactobacillus Acidophilus Cap (Acidophil (06/07/22 09:00) Nystatin Cream (Mycostatin Cream) (06/06/22 17:45) Polyethylene Glycol Powder Pkt (Miralax (06/07/22 09:00) Sennosides Tablet (Senokot Tablet) (06/06/22 21:00) Thiamine Tablet (Vitamin B-1 Tablet) (06/07/22 09:00) Magnesium Oxide Tablet (Mag Ox Tablet) (06/06/22 21:00) Multivitamins Liquid (Geritol Liquid) (06/07/22 09:00) Folic Acid Tablet (Folic Acid Tablet) (06/07/22 09:00) Consult Cardiology (06/06/22 17:47) Amiodarone Tablet (Cordarone Tablet) (06/20/22 09:00) Patient Visit (06/07/22 ) Speech Sound Lang Comp (06/07/22 ) Treat. Speech/Lang/Voice (06/07/22 ) Ekg Tracing (06/07/22 11:14) Bumetanide Tablet (Bumex Tablet) (06/07/22 14:00) Patient Visit (06/07/22 ) Functional Activities, Ea 15 (06/07/22 ) Gait Training, Ea 15 Min (06/07/22 ) Exercise Therap, Ea 15 Min (06/07/22 ) Rehab Nursing Orders: Ongoing Assess. of Cognitive Status, Ongoing Assess. of Function Status, Bladder Management, Bladder Scan, Bladder Training, Bowel Manag ement, Bowel Training, Disease Management & Educaiton, DVT Prophylaxis, Fall Prevention, Fluid/Electrolyte/Nutrition Mgmt, Infection Prevention, Medication Management & Education, Management of Risks & Complications, Management of Skin Intergrity, Nutrition Management, Pain Management, Patient/Family Support, Safety Management, Wound Management Intensity of Therapy to be met Patient to be seen: Min.3h per day/5 of 7d PT IPOC Problem List: Activity Tolerance, Functional Strength, Safety, Balance, Gait, Transfer, Bed Mobility Treatment Plan: Continue Plan of Care Bed Mobility, Concurrent Therapy, Education, Functional Activity Niya, Functional Strength, Group Therapy, Gait, Safety, Therapeutic Exercise, Transfers Treatment Duration: Jun 24, 2022 Frequency: At least 5 of 7 days/Wk (IRF) Estimated Hrs Per Day: 1.5 hours per day OT IPOC Problems: Decreased Activ Tolerance, Decreased UE Strength, Impaired Funct Balance, Impaired I ADL's, Impaired Self-Care Skills OT Treatment, Training and Edu: Yes Plan of Care: ADL Retraining, Functional Mobility, Group Exercise/Act as Ind, UE Funct Exercise/Act Treatment Duration: Jun 30, 2022 Frequency: At least 5 of 7 days/Wk (IRF) Estimated Hrs Per Day: 1.[address] IPOC Speech Therapy Treatment Plan: Discontinue ST Treatment Duration: Jun 07, 2022 Frequency: Modified Program (IRF) Estimated Hrs Per Day: Other Grinding And Polishing Laborer/Case Mgmt Grinding And Polishing Laborer/Case Managemen: Discharge Planning Dietitian/Medical Doctor Dietitian/Medical Doctor to monitor nutritional status and make changes and/or recommendations as needed and work with speech pathology on dietary upgrades as the occur. Physician IPOC Medical Issues being managed closely and that require the 24 hour availability of a physician: Recent critical illness will require close monitoring from physician with Cardiology consultation due to AF RVR recurrent issues and hypotension from meds placing him at risk for decompensation Medical Issues: Bowel/Bladder Function, DVT Prophylaxis, Falls Precautions, Fluid/Electrolyte/Nutrition Balance, Infection Protection, Pain Management, Wound Care Brief Synthesis of Preadmission Screen, Post-Admission Evaluation, and Therapy Evaluations: PT OT will focus on regaining strength with use of AD in order to gain stamina and improve respiratory status along with independence in ADL's in order to return home with spouse Medical Prognosis: Good Anticipated Length of Stay: 10 days GISELLA KENNEDY DO Jun 07, 2022 05:57
[2022-06-07 07:35] VITALS: BP 113/67
--- NOTE | 2022-06-07 08:47 | ST Cognitive Linguistic Eval ---
Speech Evaluation-General Medical Diagnosis Debility Onset Date: May 12, 2022 Therapy Diagnosis Therapy Diagnosis: Intact Neurocognitive Impairment Precautions Precautions: Fall, Pressure Ulcer Precautions/Isolations: Fall Prevention, Standard Precautions, Pressure Ulcer Referral Referring Physician: Dr. Reynolds Reason for Referral: Evaluation/Treatment Medical History Pertinent Medical History: Atrial Fib Current History The patient is a 67 year-old male with a past medical history of HTN. HLD, CVA, A fib, nonischemic cardiomyopathy, pneumonia, CKD stage 3, anasarca, and recent COVID, who presented to [facility] from [facility] after being treated for RLE cellulitis Reviewed History: Yes Social History Current Living Status: Spouse Speech PLF-Current Status Prior Level of Function The patient denied any current concerns or new challenges with his speech, language, or cognition. Per patient, he felt he "forgot some names of people he met" following a traumatic brain injury in 2019, however, "that cleared up." Subjective The patient was lying in bed, awake and alert upon entrance to his room by the clinician. The patient greeted the clinician appropriately and was agreeable to participation in the cognitive linguistic treatment session. Language Eval: Auditory Comprehends Simple Yes/No Ques: Functional Indent/Objects Multiple Diaz: Functional Follows 1-Step Commands: Functional Follows General Conversations: Functional Language Eval: Verbal Language Completes Spontaneous Greeting: Functional Produces Auto, Serial Info: Functional Imitates Simple Words/Phrases: Functional Word Finding: Functional Requests Basic Needs: Functional States Basic Personal Info: Functional Language Evaluation: Reading Follows Simple Written Direct: Functional Language Evaluation: Writing Writes Personal Information: Functional Cognitive Patient Orientation The patient was independently oriented to self, location, month, day of the week, date, and year. Objective Cognitive Domain Attention: WNL Memory: Mild (Minimal, self-reported.) Problem Solving: Functional Executive Functions: WNL Visuospatial Skills: WNL Composite Severity Rating: WNL Clock Drawing Severity Rating: WNL Objective Formal/Standardized Tests [facility] Mental Status Exam (UMS) Results The patient demonstrated a result of +27/30 on the SLUMS correlating to cognitive linguistic skills within normal limits. Oral Motor/Speech Production The patient does not demonstrate dysarthria or apraxia of speech. The patient is 100% intelligible in known and unknown contexts. Impression The patient demonstrated neurocognitive skills within normal limits. Speech Patient Assess Expression of Ideas/Wants: Expression (4) Understanding Verbal Content: Understands (4) Brief Interview-Mental Status: Yes Repetition of Three Words: Three (3) Temporal Orientation: Year: Correct (3) Temporal Orientation: Month: Accurate within 5 days(2) Temporal Orientation: Day: Correct (1) Recall : Wear to say "Sock": Yes, no cue required (2) Recall : Color: Yes, no cue required (2) Recall : Bed: Yes, no cue required (2) Memory/Recall Ability: Current season, Staff names and faces, That he or she is in a hsp/hsp unit Speech-Plan Treatment Plan Speech Therapy Treatment Plan: Discontinue ST Treatment Duration: Jun 07, 2022 Frequency: 1 time per week Estimated Hrs Per Day: .5 hour per day Rehab Potential: Good Safety Risks/Education Teaching Recipient: Patient Teaching Methods: Discussion Response to Teaching: Verbalize Understanding Education Topics Provided: Results, Recommendations, POC Time Speech Therapy Time In: 08:30 Speech Therapy Time Out: 09:00 Total Billed Time: 30 Billed Treatment Time 1, MIGUEL FRAZIER ELIZABETH ST Jun 07, 2022 08:47
[2022-06-07] MEDS: DOCUSATE SODIUM 100 MG (COLACE) CAP PO SCH ×2 (08:54→20:19)
[2022-06-07] MEDS: SENNOSIDES 8.6 MG (SENOKOT) TAB PO SCH ×2 (08:54→20:19)
[2022-06-07] MEDS: polyethylene glycoL POWDER 17 GM (MIRALAX) PACK PO SCH (08:54)
[2022-06-07] MEDS: MAGNESIUM OXIDE (MAG-OX)400 MG TAB PO SCH ×2 (09:34→20:46)
[2022-06-07] MEDS: LACTOBACILLUS ACIDOPHILUS (PROBIOTIC) CAPSULE PO SCH (09:34)
[2022-06-07] MEDS: fluCOnazole (DIFLUCAN) 100 MG TAB PO SCH (09:34)
[2022-06-07] MEDS: APIXABAN 5 MG (ELIQUIS) TABLET PO SCH ×2 (09:34→20:46)
[2022-06-07] MEDS: FOLIC ACID 1 MG TAB PO SCH (09:34)
[2022-06-07] MEDS: FAMOTIDINE 20 MG (PEPCID) TABLET PO SCH ×2 (09:34→20:46)
[2022-06-07] MEDS: THIAMINE 100 MG (VITAMIN B-1) TAB PO SCH (09:34)
[2022-06-07] MEDS: MULTIVITAMINS LIQUID 15 ML UDC PO SCH (09:34)
[2022-06-07] MEDS: MICONAZOLE 2% POWDER (DESENEX AF) 90 GM TOP SCH ×2 (09:35→20:45)
[2022-06-07] MEDS: MICONAZOLE NITRATE 2% CRM 30 GM TP SCH ×2 (09:35→20:45)
[2022-06-07 09:42] LABS: BASOPHILS # (AUTO) 0.1 10^3/uL (0.0-0.1); BASOPHILS % (AUTO) 1 % (0-10); EOSINOPHILS # (AUTO) 0.3 10^3/uL (0.0-0.3); EOSINOPHILS % (AUTO) 3 % (0-10); HEMATOCRIT 35 % (40-54); HEMOGLOBIN 11.1 g/dL (13.3-17.7); LYMPHOCYTES # (AUTO) 1.1 10^3/uL (1.0-4.0); LYMPHOCYTES % (AUTO) 12 % (12-44); MEAN CORPUSCULAR HEMOGLOBIN 29 pg (25-34); MEAN CORPUSCULAR HGB CONC 32 g/dL (32-36); MEAN CORPUSCULAR VOLUME 92 fL (80-99); MEAN PLATELET VOLUME 8.5 fL (9.0-12.2); MONOCYTES # (AUTO) 0.5 10^3/uL (0.0-1.0); MONOCYTES % (AUTO) 5 % (0-12); NEUTROPHILS # (AUTO) 7.1 10^3/uL (1.8-7.8); NEUTROPHILS % (AUTO) 79 % (42-75); PLATELET COUNT 214 10^3/uL (130-400)
[2022-06-07 09:51] LABS: ALBUMIN 2.9 GM/DL (3.2-4.5); POTASSIUM 3.8 MMOL/L (3.6-5.0)
[2022-06-07 09:53] LABS: CALCIUM 8.4 MG/DL (8.5-10.1)
[2022-06-07 09:54] LABS: TOTAL PROTEIN 6.7 GM/DL (6.4-8.2)
[2022-06-07 09:56] LABS: BILIRUBIN,TOTAL 0.9 MG/DL (0.1-1.0)
[2022-06-07 09:57] LABS: CREATININE SERUM 1.37 MG/DL (0.60-1.30)
--- NOTE | 2022-06-07 10:52 | Consultation-Cardiology ---
HPI-Cardiology Cardiology Consultation Date of Consultation 06/07/22 Date of Admission Time Seen by Provider: 08:30 Indication: PAF HPI Patient is a 67 y/o male with history of PAF, CHF, recent COVID, with hospitalization earlier this month d/t lower extremity cellulitis with sepsis. Patient was transferred to [place] and now at IRF for PT/OT due to critical illness myopathy. Currently denies any chest pain or dyspnea. Continues to have BLE edema. Denies any dizziness or lightheadedness. Home Medications & Allergies Allergies: Coded Allergies: No Known Drug Allergies (Unverified , 06/04/20) Home Medication List Reviewed: Yes GUZ-Fozpmj-Olxisa Hx Patient Social History Marital Status: Employed/Student: employed Smoking Status: Never a Smoker Recent Hopitalizations: No Have you traveled recently?: No Alcohol Use?: No Immunizations Up To Date Tetanus Booster (TDap): Unknown Past Medical History PAF, CHF, HTN, Cellulites lower extremity Family Medical History Significant Family History: Other Conditions/Hx Family Medical Hx Noncontributory Review of Systems-General Review of Systems Constitutional: see HPI, malaise, weakness EENTM: no symptoms reported Respiratory: dyspnea on exertion Cardiovascular: edema (+2-3) Gastrointestinal: no symptoms reported Genitourinary: no symptoms reported Musculoskeletal: back pain, joint pain Skin: see HPI Psychiatric/Neurological: Anxiety All Other Systems Reviewed Negative Unless Noted: Yes Reviewed Test Results Reviewed Test Results Lab Laboratory Tests 06/07/22 09:30: White Blood Count 9.0, Red Blood Count 3.81L, Hemoglobin 11.1L, Hematocrit 35L, Mean Corpuscular Volume 92, Mean Corpuscular Hemoglobin 29, Mean Corpuscular Hemoglobin Concent 32, Red Cell Distribution Width 18.6H, Platelet Count 214, Mean Platelet Volume 8.5L, Immature Granulocyte % (Auto) 1, Neutrophils (%) (Auto) 79H, Lymphocytes (%) (Auto) 12, Monocytes (%) (Auto) 5, Eosinophils (%) (Auto) 3, Basophils (%) (Auto) 1, Neutrophils # (Auto) 7.1, Lymphocytes # (Auto) 1.1, Monocytes # (Auto) 0.5, Eosinophils # (Auto) 0.3, Basophils # (Auto) 0.1, Immature Granulocyte # (Auto) 0.1, Sodium Level 139, Potassium Level 3.8, Chloride Level 98, Carbon Dioxide Level 31, Anion Gap 10, Blood Urea Nitrogen 21H, Creatinine 1.37H, Estimat Glomerular Filtration Rate 56, BUN/Creatinine Ratio 15, Glucose Level 113H, Calcium Level 8.4L, Corrected Calcium 9.3, Total Bilirubin 0.9, Aspartate Amino Transf (AST/SGOT) 23, Alanine Aminotransferase (ALT/SGPT) 10, Alkaline Phosphatase 109, Total Protein 6.7, Albumin 2.9L Physical Exam Physical Exam Vital Signs Vital Signs - First Documented 06/06/22 06/06/22 13:45 17:07 Temp 37.1 Pulse 62 Resp 20 B/P (MAP) 111/61 (78) Pulse Ox 96 O2 Delivery Room Air O2 Flow Rate 2.00 Capillary Refill : Height, Weight, BMI Height: '" Weight: lbs. oz. kg; 36.62 BMI Method: General Appearance: No Apparent Distress, WD/WN, Chronically ill Eyes: Bilateral Eye Normal Inspection, Bilateral Eye PERRL HEENT: PERRL/EOMI, Normal ENT Inspection, Pharynx Normal Neck: Full Range of Motion, Normal Inspection, Non Tender, Supple, Carotid Bruit Respiratory: Chest Non Tender, Lungs Clear, Normal Breath Sounds, No Accessory Muscle Use, No Respiratory Distress Cardiovascular: No Edema, No Gallop, No JVD, No Murmur, Normal Peripheral Pulses, Irregularly Irregular Gastrointestinal: Normal Bowel Sounds, No Organomegaly, No Pulsatile Mass, Non Tender, Soft Back: Normal Inspection, No CVA Tenderness, No Vertebral Tenderness Extremity: Normal Capillary Refill, Normal Inspection, Normal Range of Motion, Non Tender, No Calf Tenderness, Pedal Edema Neurologic/Psychiatric: Alert, Oriented x3, Normal Mood/Affect, intelligent systems engineer II-XII Norm as Tested, Abnormal Gait, Depressed Affect, Motor Weakness Skin: Normal Color, Warm/Dry, Rash (dried skin arms and legs) Lymphatic: No Adenopathy A/P-Cardiology Admission Diagnosis Critical illness myopathy PAF CHF HTN Assessment/Plan History of Right leg cellulitis/fasciitis with sepsis, hospitalization ealier this month, was transferred to [place]. Status post pneumonia, received Rocephin at [place], finishes full antibiotic dose and reported improvement. Generalized debility/weakness, critical illness myopathy, continue PT/OT Paroxysmal atrial fibrillation, History of paroxysmal atrial fibrillation, Status post KERRY and electrical cardioversion on May 17, 2022, returned to atrial fibrillation during the hospitalization and then he was transferred to [place] Intolerant to Multaq. Currently on Amiodarone orally, continue to monitor. I will evaluate EKG. Peripheral edema, anasarca, having significant edema. Was on Bumex and metolazone at [place] I will start Bumex and evaluate tolerance and response [id number] score of 2, maintained on Eliquis. History of Thrombocytopenia, patient had hematuria and GI bleed. Currently on Eliquis, continue to monitor. Congestive heart failure, acute left ventricular systolic dysfunction 2D echo was done on May 14, 2022 showing dilated left ventricle with ejection fraction 25 to 30%, diffuse hypokinesia, grade 2 diastolic dysfunction, biatrial enlargement, moderate mitral regurgitation, PA pressure 40 to 45 mmHg Probably nonischemic cardiomyopathy, last stress test was done in May 2020 showing no significant ischemia or infarction Probably heart failure secondary to tachycardia Unable to tolerate diuretics at this time d/t hypotension. Hypertension, currently hypotensive, I will hold Coreg at this time, cont to monitor Acute renal insufficiency, renal function are better. Continue to monitor. History of syncope and fall from a ladder with subarachnoid hemorrhage in May 2020. Treated at . Stress test done in May 2020 showing no significant ischemia or infarction, at that time his echo was normal. Thank you for allowing us to participate in the management of Mr. Verma. This is Geri Carpenter PA-C, as a scribe for Dr. Uribe. Patient was seen and evaluated with Geri, I interviewed and examined the patient and discussed the management plan with Geri. I agree with the current scribed note and made few modification using Italic font And quick summary patient is well-known to me he was hospitalized for sepsis and hypotension and transferred to [place] Currently appear to be significantly better, still having significant edema and still in atrial fibrillation I will restart diuretics and continue all other medication monitor GERI KESSLER Jun 07, 2022 10:52 AUDELIA URIBE MD Jun 07, 2022 13:48
--- NOTE | 2022-06-07 10:53 | Occupational Ther Daily Note ---
OT Current Status-Daily Note Subjective Pt in bed upon arrival. He agrees to therapy. Co-treat with PT ([id number]) secondary to weakness, endurance and balance. In upcoming sessions, co- treatments will not be necessary. Appearance Pt left with PT in therapy gym. All needs met. Mental Status/Objective Patient Orientation: Person, Place, Time, Situation Attachments: IV, Oxygen (Oxygen stayed above 97% through entire session) Acute change in mental status: 0 Inattention: 0 Disorganized thinkin Altered level of consciousness: 0 ADL-Treatment Therapy Code Descriptions/Definitions Functional Warren Measure: 0=Not Assessed/NA 4=Minimal Assistance 1=Total Assistance 5=Supervision or Setup 2=Maximal Assistance 6=Modified Warren 3=Moderate Assistance 7=Complete IndependenceSCALE: Activities may be completed with or without assistive devices. 9-Simscemsok-rrnwmhj completes the activity by him/herself with no assistance from a helper. 5-Set-up or Clean-up Assistance-helper sets up or cleans up; patient completes activity. [place] assists only prior to or following the activity. 4-Supervision or Touching Assistance-helper provides verbal cues and/or touching/steadying and/or contact guard assistance as patient completes activity. Assistance may be provided throughout the activity or intermittently. 3-Partial/Moderate Assistance-helper does LESS THAN HALF the effort. [place] lifts, holds or supports trunk or limbs, but provides less than half the effort. 2-Substantial/Maximal Assistance-helper does MORE THAN HALF the effort. [place] lifts or holds trunk or limbs and provides more than half the effort. 2-Tskigyzbc-xpwzjx does ALL the effort. Patient does none of the effort to complete the activity. Or, the assistance of 2 or more helpers is required for the patient to complete the activity. If activity was not attempted, code reason: 7-Patient Refused. 9-Not Applicable-not attempted and the patient did not perform the activity before the current illness, exacerbation or injury. 10-Not Attempted due to Environmental Limitations-(lack of equipment, weather restraints, etc.). 88-Not Attempted due to Medical Conditions or Safety Concerns. Oral Hygiene (QC): 6 (standing) Lower Body Dressing (QC): 4 On/Off Footwear: 5 Bed mobility: SBA. Pt's oxygen stats after bed mobility was 98%. Sit <> stand transfers: SBA. Pt performed lower body dressing and footwear with sock aide sitting EOB with supervision-SBA. In standing, pt performed valentina hygiene with assist for thoroughness. Grooming completed 100% in standing with SBA. Nursing stated that per Dr. Reynolds, pt is not be weaned off of oxygen. Throughout entire session, even after long bouts of walking and standing activities, pt still stayed above 97% O2. Pt does exhibit poor endurance, but O2 levels were never a concern during session. Other Treatment Pt performed functional activities building with pvc pipes x2 designs, and playing washers 8x6, in standing while wearing 2 lb wrist weights to work on fine motor, endurance, problem-solving, strengthening, balance, and coordination. Pt was able to tolerate 7 min at a time in standing while completing activities. Pt showed good balance and coordination while performing activities. Pt completed activity of ambulating to gather game pieces and ambulating back to assemble [employer] game with 2 lb wrist weights on, to again improve endurance, standing/ambulation tolerance, coordination, balance, and fine motor skills. Pt tolerated 10 min of ambulation with SBA-CGA. After 10 min of ambulation, with no rest breaks, O2 was taken and was 97%-98%. In standing, without wrist weights, pt participated in fine motor and endurance task of playing [employer] game. Education OT Patient Education: Correct positioning, Energy conservation, Modified ADL techniques, Progress toward Goal/Update tx plan, Purpose of tx/functional activities, Reviewed precautions, Rehab process, Safety issues, Transfer techniques, Use of adapted equipment Teaching Recipient: Patient Teaching Methods: Demonstration, Discussion Response to Teaching: Verbalize Understanding, Return Demonstration OT Short Term Goals Short Term Goals Time Frame: Jun 14, 2022 Shower/bathe self: 4 Lower body dressin Putting on/taking off footwear: 4 OT Longterm Goals Vice President Of Academic Affairs Goals Time Frame: Jun 30, 2022 Acute change in mental status: 0 Inattention: 0 Disorganized thinkin Altered level of consciousness: 0 Eating (QC): 6 Oral Hygiene (QC): 6 Toileting Hygiene (QC): 6 Shower/Bathe Self (QC): 6 Upper Body Dressing (QC): 6 Lower Body Dressing (QC): 6 On/Off Footwear (QC): 6 Additional Goals: 1-Demonstrate ADL Tasks, 2-Verbalize Understanding, 3- ImproveStrength/Niya 1=Demonstrate adherence to instructed precautions during ADL tasks. 2=Patient will verbalize/demonstrate understanding of assistive devices/modifications for ADL. 3=Patient will improve strength/tolerance for activity to enable patient to perform ADL's. OT Education/Plan Problem List/Assessment Assessment: Decreased Activ Tolerance, Decreased UE Strength, Edema, Impaired Coordination, Impaired Funct Balance, Impaired I ADL's, Impaired Self-Care Skills Discharge Recommendations Plan/Recommendations: Continue POC Therapy Discharge Recommendati: Home & Family Equpiment Recommendations-D/C: Sock Aide Treatment Plan/Plan of Care Treatment,Training & Education: Yes Patient would benefit from OT for education, treatment and training to promote independence in ADL's, mobility, safety and/or upper extremity function for ADL's. Plan of Care: ADL Retraining, Functional Mobility, Group Exercise/Act as Ind, UE Funct Exercise/Act Treatment Duration: Jun 30, 2022 Frequency: At least 5 of 7 days/Wk (IRF) Estimated Hrs Per Day: 1.5 hours per day Agreement: Yes Rehab Potential: Good Time/GCodes Start Time: 09:30 Stop Time: 10:45 Total Time Billed (hr/min): 75 Billed Treatment Time 1 visit ADL x2 (25 min) FA x3 (50 min) Co-treat ([id number]) Rochelle Wesley OT Jun 07, 2022 10:53
--- NOTE | 2022-06-07 11:17 | Physical Therapy Daily Note ---
PT Daily Note-Current Subjective Pt sitting in Therapy Gym working w/OT upon arrival. Pt agrees to PT/OT co- treat. Co-treat with PT ([id number]) secondary to weakness, endurance and balance. In upcoming sessions, co-treatments will not be necessary. Pain Location: No Pain Reported Section J - Health Conditions 1. Rarely or not at all 2. Occasionally 3. Frequently 4. Almost constantly 8. Unable to answer Pain Effect on Sleep: 1 Pain Interference with Therapy: 1 Pain Interference w/Day-to-Day: 1 Transfers SCALE: Activities may be completed with or without assistive devices. 6-Bhginugypp-rynlevf completes the activity by him/herself with no assistance from a helper. 5-Set-up or Clean-up Assistance-helper sets up or cleans up; patient completes activity. [place] assists only prior to or following the activity. 4-Supervision or Touching Assistance-helper provides verbal cues and/or touching/steadying and/or contact guard assistance as patient completes act ivity. Assistance may be provided throughout the activity or intermittently. 3-Partial/Moderate Assistance-helper does LESS THAN HALF the effort. [place] lifts, holds or supports trunk or limbs, but provides less than half the effort. 2-Substantial/Maximal Assistance-helper does MORE THAN HALF the effort. [place] lifts or holds trunk or limbs and provides more than half the effort. 5-Fykbliekt-lquzlh does ALL the effort. Patient does none of the effort to complete the activity. Or, the assistance of 2 or more helpers is required for the patient to complete the activity. If activity was not attempted, code reason: 7-Patient Refused. 9-Not Applicable-not attempted and the patient did not perform the activity before the current illness, exacerbation or injury. 10-Not Attempted due to Environmental Limitations-(lack of equipment, weather restraints, etc.). 88-Not Attempted due to Medical Conditions or Safety Concerns. Exercises NuStep Minutes: 10 NuStep Workload: 4 Treatments Pt performed functional activities building with pvc pipes x2 designs, and playing washers 8x6, in standing while wearing 2 lb wrist weights to work on fine motor, endurance, problem-solving, strengthening, balance, and coordination. Pt was able to tolerate 7 min at a time in standing while completing activities. Pt showed good balance and coordination while performing activities. Pt completed activity of ambulating to gather game pieces and ambulating back to assemble Kaizena game with 2 lb wrist weights on, to again improve endurance, standing/ambulation tolerance, coordination, balance, and fine motor skills. Pt tolerated 10 min of ambulation with SBA-CGA. After 10 min of ambulation, with no rest breaks, O2 was taken and was 97%-98%. In standing, without wrist weights, pt participated in fine motor and endurance task of playing jenga game. OT departs but PT continues for short Indiv. tx. (1045- 1100) Pt uses NuStep before amb. back to room to rest. All needs met, call light in hand. Assessment Nursing stated that per Dr. Reynolds, pt is not be weaned off of oxygen. Throughout entire session, even after long bouts of walking and standing activities, pt still stayed above 97% O2. Pt does exhibit poor endurance, but O2 levels were never a concern during session. Pt has improved with strength and activity tolerance. Pt is able to stand completing activities for 7m each and with one task including walking and dynamic standing was over 10m. Pt's O2 remained 97% w/extended walking standing activity. Co-treatments are not needed due to improved strength and endurance. PT Staff Assistant Goals Staff Assistant Goals PT Mcfp Goals Time Frame: Jun 24, 2022 Roll Left & Right (QC): 6 Sit to Lying (QC): 6 Lying-Sitting on Side/Bed(QC): 6 Sit to Stand (QC): 6 Chair/Jhg-yn-Twgmx Xfer(QC): 6 Toilet Transfer (QC): 6 Car Transfer (QC): 6 Does the Patient Walk: Yes Walk 10 feet (QC): 6 Walk 50ft with 2 Turns (QC): 6 Walk 150 ft (QC): 6 Walking 10ft on Uneven Surface: 6 1 Step (curb) (QC): 4 4 Steps (QC): 4 12 Steps (QC): 4 Picking up an Object (QC): 6 Does the Pt use WC or Scooter?: No Wheel 50 feet with 2 turns (QC: 9 Wheel 150 feet: 9 PT Plan Treatment/Plan Treatment Plan: Continue Plan of Care Treatment Plan: Bed Mobility, Concurrent Therapy, Education, Functional Activity Niya, Functional Strength, Group Therapy, Gait, Safety, Therapeutic Exercise, Transfers Treatment Duration: Jun 24, 2022 Frequency: At least 5 of 7 days/Wk (IRF) Estimated Hrs Per Day: 1.5 hours per day Patient and/or Family Agrees t: Yes Time/GCodes Time In: 1000 Time Out: 1100 Total Billed Treatment Time: 60 Total Billed Treatment 1, FA x2 (30m), GT (15m) & EX (15m) LAURA MARIA EXPLORATION MANAGER Jun 07, 2022 11:17
[2022-06-07] MEDS: AMIODARONE 200 MG (CORDARONE) TAB PO SCH ×2 (12:38→20:46)
--- NOTE | 2022-06-07 14:47 | Physical Therapy Daily Note ---
PT Daily Note-Current Subjective Pt sitting in recliner upon arrival. Pt's daughter and Sp are present. Pt agrees to PT and ask to use BR. Pain Location: No Pain Reported Section J - Health Conditions 1. Rarely or not at all 2. Occasionally 3. Frequently 4. Almost constantly 8. Unable to answer Pain Effect on Sleep: 1 Pain Interference with Therapy: 1 Pain Interference w/Day-to-Day: 1 Mental Status Patient Orientation: Person, Place, Time, Situation Attachments: Oxygen (2L) Transfers SCALE: Activities may be completed with or without assistive devices. 9-Erwiughjvp-wxxyidd completes the activity by him/herself with no assistance from a helper. 5-Set-up or Clean-up Assistance-helper sets up or cleans up; patient completes activity. [place] assists only prior to or following the activity. 4-Supervision or Touching Assistance-helper provides verbal cues and/or touching/steadying and/or contact guard assistance as patient completes activity. Assistance may be provided throughout the activity or intermittently. 3-Partial/Moderate Assistance-helper does LESS THAN HALF the effort. [place] lifts, holds or supports trunk or limbs, but provides less than half the effort. 2-Substantial/Maximal Assistance-helper does MORE THAN HALF the effort. [place] lifts or holds trunk or limbs and provides more than half the effort. 0-Ylfvyvwsl-dcalxe does ALL the effort. Patient does none of the effort to complete the activity. Or, the assistance of 2 or more helpers is required for the patient to complete the activity. If activity was not attempted, code reason: 7-Patient Refused. 9-Not Applicable-not attempted and the patient did not perform the activity befo re the current illness, exacerbation or injury. 10-Not Attempted due to Environmental Limitations-(lack of equipment, weather re straints, etc.). 88-Not Attempted due to Medical Conditions or Safety Concerns. Sit to Stand (QC): 5 Toilet Transfer (QC): 4 Weight Bearing Full Weight Bearing Full Weight Bearing Gait Training Does the Patient Walk?: Yes Distance: 15' Walk 10 feet (QC): 5 Gait Assistive Device: FWW Treatments TF to standing and amb, to BR. Pt able to doff/don pants and change into another set of pants. Pt is resting at end of tx w/all needs met, call light in hand. Assessment Current Status: Good Progress Pt sanjay. tx well. Pt has gained strength and activity tolerance. PT Residential Goals Community Development Manager Goals PT Community Development Manager Goals Time Frame: Jun 24, 2022 Roll Left & Right (QC): 6 Sit to Lying (QC): 6 Lying-Sitting on Side/Bed(QC): 6 Sit to Stand (QC): 6 Chair/Qiv-wn-Hfvts Xfer(QC): 6 Toilet Transfer (QC): 6 Car Transfer (QC): 6 Does the Patient Walk: Yes Walk 10 feet (QC): 6 Walk 50ft with 2 Turns (QC): 6 Walk 150 ft (QC): 6 Walking 10ft on Uneven Surface: 6 1 Step (curb) (QC): 4 4 Steps (QC): 4 12 Steps (QC): 4 Picking up an Object (QC): 6 Does the Pt use WC or Scooter?: No Wheel 50 feet with 2 turns (QC: 9 Wheel 150 feet: 9 PT Plan Treatment/Plan Treatment Plan: Continue Plan of Care Treatment Plan: Bed Mobility, Concurrent Therapy, Education, Functional Activity Niya, Functional Strength, Group Therapy, Gait, Safety, Therapeutic Exercise, Transfers Treatment Duration: Jun 24, 2022 Frequency: At least 5 of 7 days/Wk (IRF) Estimated Hrs Per Day: 1.5 hours per day Patient and/or Family Agrees t: Yes Time/GCodes Time In: 1400 Time Out: 1415 Total Billed Treatment 1, FA (15m) LAURA MARIA HIM CLERK Jun 07, 2022 14:47
[2022-06-07] MEDS: BUMETANIDE 1 MG (BUMEX) TAB PO SCH (15:46)
[2022-06-07 20:10] VITALS: BP 108/54
--- NOTE | 2022-06-08 06:17 | PM&R Progress Note ---
Subjective HPI/CC On Admission Date Seen by Provider: Jun 08, 2022 Time Seen by Provider: 10:30 Subjective/Events-last exam 06/08/2022: No major issues Weaning O2 BP improved after med changes Appreciate Dr Uribe 06/07/2022: Patient doing well overall Frustrated he is still wearing O2 No pain Rash appears improved Reviewed meds Dr Uribe evaluating his cardiac meds and BP meds Review of Systems General: Fatigue, Malaise Objective Exam Vital Signs Vital Signs Date Time Temp Pulse Resp B/P (MAP) Pulse Ox O2 Delivery O2 Flow Rate FiO2 06/08/22 21:11 Nasal Cannula 2.00 06/08/22 19:43 36.1 59 20 120/67 (84) 98 Capillary Refill : General Appearance: No Apparent Distress, WD/WN, Chronically ill HEENT: PERRL/EOMI, Normal ENT Inspection, Pharynx Normal Neck: Full Range of Motion, Normal Inspection, Non Tender, Supple, Carotid Bruit Respiratory: Chest Non Tender, Lungs Clear, Normal Breath Sounds, No Accessory Muscle Use, No Respiratory Distress Cardiovascular: No Edema, No Gallop, No JVD, No Murmur, Normal Peripheral Pulses, Irregularly Irregular Gastrointestinal: Normal Bowel Sounds, No Organomegaly, No Pulsatile Mass, Non Tender, Soft Back: Normal Inspection, No CVA Tenderness, No Vertebral Tenderness Extremity: Normal Capillary Refill, Normal Inspection, Normal Range of Motion, Non Tender, No Calf Tenderness, No Pedal Edema Neurologic/Psychiatric: Alert, Oriented x3, Normal Mood/Affect, information services manager II-XII Norm as Tested, Abnormal Gait, Depressed Affect, Motor Weakness Skin: Normal Color, Warm/Dry Lymphatic: No Adenopathy Results/Procedures Lab Patient resulted labs reviewed. FIM Transfers Therapy Code Descriptions/Definitions Functional [place] Measure: 0=Not Assessed/NA 4=Minimal Assistance 1=Total Assistance 5=Supervision or Setup 2=Maximal Assistance 6=Modified [place] 3=Moderate Assistance 7=Complete IndependenceSCALE: Activities may be completed with or without assistive devices. 6-Mqajzszbaz-omnyovu completes the activity by him/herself with no assistance from a helper. 5-Set-up or Clean-up Assistance-helper sets up or cleans up; patient completes activity. [place] assists only prior to or following the activity. 4-Supervision or Touching Assistance-helper provides verbal cues and/or touching/steadying and/or contact guard assistance as patient completes activity. Assistance may be provided throughout the activity or intermittently. 3-Partial/Moderate Assistance-helper does LESS THAN HALF the effort. [place] lifts, holds or supports trunk or limbs, but provides less than half the effort. 2-Substantial/Maximal Assistance-helper does MORE THAN HALF the effort. [place] lifts or holds trunk or limbs and provides more than half the effort. 0-Rkqazmpde-sawjuu does ALL the effort. Patient does none of the effort to complete the activity. Or, the assistance of 2 or more helpers is required for the patient to complete the activity. If activity was not attempted, code reason: 7-Patient Refused. 9-Not Applicable-not attempted and the patient did not perform the activity before the current illness, exacerbation or injury. 10-Not Attempted due to Environmental Limitations-(lack of equipment, weather restraints, etc.). 88-Not Attempted due to Medical Conditions or Safety Concerns. Roll Left to Right (QC): 6 Sit to Lying (QC): 6 Sit to Stand (QC): 5 Chair/Pnx-js-Nnduo Xfer(QC): 4 Car Transfer (QC): 4 Gait Training Does the Patient Walk?: Yes Distance: 15' Walk 10 feet (QC): 5 Walk 50 ft with 2 Turns(QC): 4 Walk 150 ft (QC): 4 Walking 10ft/uneven surface-QC: 4 Gait Assistive Device: FWW Wheelchair Training Does the Pt Use a Wheelchair?: No Wheel 50 ft with 2 turns (QC): 9 Wheel 150 ft (QC): 9 Type of Wheelchair: N/A Stair Training #of Steps: 8 1 Step (curb) (QC): 4 4 Steps (QC): 4 12 Steps (QC): 88 Balance Picking up an Object (QC): 88 ADL-Treatment Eating (QC): 6 (Per pt report. ) Oral Hygiene (QC): 6 (standing) Shower/Bathe Self (QC): 3 (Min A with buttocks and thoroughness of feet.) Upper Body Dressing (QC): 5 (set up with line puller shirt.) Lower Body Dressing (QC): 4 On/Off Footwear (QC): 5 Toileting Hygiene (QC): 3 (Min A with hygiene, pt able to manage pants.) Assessment/Plan Assessment and Plan Assess & Plan/Chief Complaint Assessment: Myopathy s/p cardiogenic shock Pulmonary Hypertension with Mitral Regurgitation Heart Failure due to Afib RVR Hypokalemia h/o Acute on chronic respiratory failure Recent Pneumonia Resolved right lower extremity cellulitis Recent Acute kidney injury Anasarca Atrial fibrillation w/RVR now much improved on Amiodarone Recent COVID Central line required due to critical illness Coagulopathy due to Eliquis and acute renal failure Chronic hypoxia supplemental oxygen required since last admit Plan: Intense therapy Dr Uribe consult Rash management 06/07/2022: Monitor closely Rash treatment 06/08/2022: Wean O2 Monitor closely (1) Acute on chronic HFrEF (heart failure with reduced ejection fraction) (2) Persistent atrial fibrillation (3) Cardiomyopathy GISELLA KENNEDY DO Jun 08, 2022 06:17
[2022-06-08 07:26] VITALS: BP 117/60
[2022-06-08] MEDS: APIXABAN 5 MG (ELIQUIS) TABLET PO SCH ×2 (08:02→20:14)
[2022-06-08] MEDS: THIAMINE 100 MG (VITAMIN B-1) TAB PO SCH (08:02)
[2022-06-08] MEDS: BUMETANIDE 1 MG (BUMEX) TAB PO SCH (08:02)
[2022-06-08] MEDS: LACTOBACILLUS ACIDOPHILUS (PROBIOTIC) CAPSULE PO SCH (08:02)
[2022-06-08] MEDS: FOLIC ACID 1 MG TAB PO SCH (08:02)
[2022-06-08] MEDS: AMIODARONE 200 MG (CORDARONE) TAB PO SCH ×2 (08:02→20:14)
[2022-06-08] MEDS: MICONAZOLE NITRATE 2% CRM 30 GM TP SCH ×2 (08:03→20:15)
[2022-06-08] MEDS: FAMOTIDINE 20 MG (PEPCID) TABLET PO SCH ×2 (08:03→20:14)
[2022-06-08] MEDS: MICONAZOLE 2% POWDER (DESENEX AF) 90 GM TOP SCH ×2 (08:03→20:15)
[2022-06-08] MEDS: fluCOnazole (DIFLUCAN) 100 MG TAB PO SCH (08:03)
[2022-06-08] MEDS: MAGNESIUM OXIDE (MAG-OX)400 MG TAB PO SCH ×2 (08:03→20:14)
[2022-06-08] MEDS: MULTIVITAMINS LIQUID 15 ML UDC PO SCH (08:05)
[2022-06-08] MEDS: SENNOSIDES 8.6 MG (SENOKOT) TAB PO SCH ×2 (08:05→20:15)
[2022-06-08] MEDS: polyethylene glycoL POWDER 17 GM (MIRALAX) PACK PO SCH (08:05)
[2022-06-08] MEDS: DOCUSATE SODIUM 100 MG (COLACE) CAP PO SCH ×2 (08:05→20:14)
--- NOTE | 2022-06-08 08:21 | Cardiology Progress Note ---
Subjective Date Seen by Provider: Jun 08, 2022 Time Seen by Provider: 08:19 Subjective/Events-last exam Patient is in bed, no new complaints Review of Systems General: No Chills, No Night Sweats, No Fatigue, No Malaise, No Appetite, No Other HEENT: No Head Aches, No Visual Changes, No Eye Pain, No Ear Pain, No Dysphasia, No Sinus Congestion, No Post Nasal Drip, No Sore Throat, No Other Pulmonary: No Dyspnea, No Cough, No Pleuritic Chest Pain, No Other Cardiovascular: Edema; No: Chest Pain, Palpitations, Orthopnea, Paroxysmal Noc. Dyspnea, Lt Headedness, Other Objective-Cardiology Exam Last Set of Vital Signs Vital Signs 06/08/22 06/08/22 07:26 07:39 Temp 36.4 Pulse 64 Resp 20 B/P (MAP) 117/60 (79) Pulse Ox 99 O2 Delivery Nasal Cannula O2 Flow Rate 2.00 General: Alert, Oriented X3 Neck: Supple Lungs: Clear to Auscultation Heart: Normal S1, Normal S2, Other (irregularly irregular) Abdomen: Normal Bowel Sounds, Soft Extremities: No Clubbing Skin: No Rashes, No Significant Lesion Neuro: Normal Speech, Cranial Nerves 3-12 NL Results Lab Laboratory Tests 06/07/22 09:30 A/P-Cardiology Admission Diagnosis Critical illness myopathy PAF CHF HTN Assessment/Plan History of Right leg cellulitis/fasciitis with sepsis, hospitalization ealier this month, was transferred to [facility]. Status post pneumonia, received Rocephin at [facility], finishes full antibiotic dose and reported improvement. Generalized debility/weakness, critical illness myopathy, continue PT/OT Paroxysmal atrial fibrillation, History of paroxysmal atrial fibrillation, Status post KERRY and electrical cardioversion on May 17, 2022, returned to atrial fibrillation during the hospitalization and then he was transferred to [facility] Intolerant to [place]. Currently on Amiodarone orally, continue to monitor. EKG showing rate controlled afib. Peripheral edema, anasarca, having significant edema. Was on Bumex and metolazone at [facility] Bumex restarted, evaluate tolerance and response [id number] score of 2, maintained on Eliquis. History of Thrombocytopenia, patient had hematuria and GI bleed. Currently on Eliquis, continue to monitor. Congestive heart failure, acute left ventricular systolic dysfunction 2D echo was done on May 14, 2022 showing dilated left ventricle with ejection fraction 25 to 30%, diffuse hypokinesia, grade 2 diastolic dysfunction, biatrial enlargement, moderate mitral regurgitation, PA pressure 40 to 45 mmHg Probably nonischemic cardiomyopathy, last stress test was done in May 2020 showing no significant ischemia or infarction Probably heart failure secondary to tachycardia Unable to tolerate diuretics at this time d/t hypotension. Hypertension, currently hypotensive, I will hold Coreg at this time, cont to monitor Acute renal insufficiency, renal function are better. Continue to monitor. History of syncope and fall from a ladder with subarachnoid hemorrhage in May 2020. Treated at . Stress test done in May 2020 showing no significant ischemia or infarction, at that time his echo was normal. Supervisory-Addendum Brief Supervisory Addendum Participated in pt care: history, MDM, physical Personally performed: exam, history, MDM Care discussed with: ANNA Results interpretation: Verified all documentation Notes: Patient was seen and evaluated with Geri, examination performed, management plan was discussed, agree with the current scribed note, I made few changes to the note using Italic font Patient was seen at bedside, laying down comfortably Having significant edema, anasarca Started on Bumex yesterday, continue to monitor I will reevaluate BMP in the morning Adding parameters to Coreg to hold for systolic blood pressure less than 100 GERI KESSLER Jun 08, 2022 08:21 AUDELIA BEARD MD Jun 08, 2022 08:35
--- NOTE | 2022-06-08 09:13 | Physical Therapy Daily Note ---
PT Daily Note-Current Subjective Pt. in bed. States he is not in pain and feels he slept well. "Leslye even missed phone calls from my family, slept right through them" Agrees to Rx. Comments on edema in LEs and trunk Pt. states he wants to take O2 off. Pt. instructed to inquire with nurse and or Dr Pain Location: No Pain Reported Section J - Health Conditions 1. Rarely or not at all 2. Occasionally 3. Frequently 4. Almost constantly 8. Unable to answer Pain Effect on Sleep: 1 Pain Interference with Therapy: 1 Pain Interference w/Day-to-Day: 1 Appearance marked pitting edema B LEs and trunk Mental Status Patient Orientation: Normal For Age Attachments: Oxygen (2L) Transfers SCALE: Activities may be completed with or without assistive devices. 7-Nyutndysik-yqibozv completes the activity by him/herself with no assistance from a helper. 5-Set-up or Clean-up Assistance-helper sets up or cleans up; patient completes activity. [place] assists only prior to or following the activity. 4-Supervision or Touching Assistance-helper provides verbal cues and/or touching/steadying and/or contact guard assistance as patient completes activity. Assistance may be provided throughout the activity or intermittently. 3-Partial/Moderate Assistance-helper does LESS THAN HALF the effort. [place] lifts, holds or supports trunk or limbs, but provides less than half the effort. 2-Substantial/Maximal Assistance-helper does MORE THAN HALF the effort. [place] lifts or holds trunk or limbs and provides more than half the effort. 6-Auoahpkjb-wtoxma does ALL the effort. Patient does none of the effort to complete the activity. Or, the assistance of 2 or more helpers is required for the patient to complete the activity. If activity was not attempted, code reason: 7-Patient Refused. 9-Not Applicable-not attempted and the patient did not perform the activity before the current illness, exacerbation or injury. 10-Not Attempted due to Environmental Limitations-(lack of equipment, weather restraints, etc.). 88-Not Attempted due to Medical Conditions or Safety Concerns. Roll Left & Right (QC): 6 Lying to Sitting/Side of Bed(Q: 6 Sit to Stand (QC): 6 Chair/Jke-dy-Lqgvi Xfer(QC): 6 Weight Bearing Full Weight Bearing Full Weight Bearing Gait Training Does the Patient Walk?: Yes Walk 10 feet (QC): 4 Walk 50 ft with 2 Turns(QC): 4 Walk 150 ft (QC): 4 Gait Persons Needed: 1 Gait Assistive Device: FWW assisted with port O2, no LOB, even step length , moderate wt bearing on FWW, O2 sats steady at 98% throughout Rx Exercises Supine Ex: Bridging, Ankle pumps, Quad Set, Rolling, Glut sets, Heel Slides, Short Arc Quads, Scooting (up in bed indep), Straight leg raise, Hip abd/add Supine Reps: 8 (x2) Seated Therapy Exercises: Sit to stand, Long arc quads Seated Reps: 12 NuStep Minutes: 12 NuStep Workload: 1 Treatments bed Therex, bed mob, pt. needed only set up for donning shorts, max asst for socks, TRFs, gait, balance, Therex, as above and leg presses on Nustep x 12, rest breaks needed , sats >95% on 2 L O2 through all of Rx Assessment Current Status: Good Progress gives full effort, motivated, progress noted in all phases of rx PT Intermediate Goals Intermediate Goals PT Intermediate Goals Time Frame: Jun 24, 2022 Roll Left & Right (QC): 6 Sit to Lying (QC): 6 Lying-Sitting on Side/Bed(QC): 6 Sit to Stand (QC): 6 Chair/Riv-mc-Gcunk Xfer(QC): 6 Toilet Transfer (QC): 6 Car Transfer (QC): 6 Does the Patient Walk: Yes Walk 10 feet (QC): 6 Walk 50ft with 2 Turns (QC): 6 Walk 150 ft (QC): 6 Walking 10ft on Uneven Surface: 6 1 Step (curb) (QC): 4 4 Steps (QC): 4 12 Steps (QC): 4 Picking up an Object (QC): 6 Does the Pt use WC or Scooter?: No Wheel 50 feet with 2 turns (QC: 9 Wheel 150 feet: 9 PT Plan Treatment/Plan Treatment Plan: Continue Plan of Care Treatment Plan: Bed Mobility, Concurrent Therapy, Education, Functional Activity Niya, Functional Strength, Group Therapy, Gait, Safety, Therapeutic Exercise, Transfers Treatment Duration: Jun 24, 2022 Frequency: At least 5 of 7 days/Wk (IRF) Estimated Hrs Per Day: 1.5 hours per day Patient and/or Family Agrees t: Yes Safety Risks/Education Patient Education: Gait Training, Transfer Techniques, Correct Positioning, Disease Process, Safety Issues Teaching Recipient: Patient Teaching Methods: Demonstration, Discussion Response to Teaching: Verbalize Understanding, Return Demonstration, Reinforcement Needed Time/GCodes Time In: 750 Time Out: 850 Total Billed Treatment Time: 60 Total Billed Treatment 1,FA15m,GT20m,EX25m LIGIA CORTEZ DIE INSPECTOR Jun 08, 2022 09:13
--- NOTE | 2022-06-08 09:51 | Occupational Ther Daily Note ---
OT Current Status-Daily Note Subjective AM: Pt up in recliner, agreeable to OT Tx. PM: Pt in bed, agreeable to OT Tx with some encouragement. Mental Status/Objective Attachments: Oxygen (2L NC) Acute change in mental status: 0 Inattention: 0 Disorganized thinkin Altered level of consciousness: 0 ADL-Treatment Therapy Code Descriptions/Definitions Functional [facility] Measure: 0=Not Assessed/NA 4=Minimal Assistance 1=Total Assistance 5=Supervision or Setup 2=Maximal Assistance 6=Modified [facility] 3=Moderate Assistance 7=Complete IndependenceSCALE: Activities may be completed with or without assistive devices. 7-Ghrrevlvbe-ykjlked completes the activity by him/herself with no assistance from a helper. 5-Set-up or Clean-up Assistance-helper sets up or cleans up; patient completes activity. [place] assists only prior to or following the activity. 4-Supervision or Touching Assistance-helper provides verbal cues and/or touching/steadying and/or contact guard assistance as patient completes activity. Assistance may be provided throughout the activity or intermittently. 3-Partial/Moderate Assistance-helper does LESS THAN HALF the effort. [place] lifts, holds or supports trunk or limbs, but provides less than half the effort. 2-Substantial/Maximal Assistance-helper does MORE THAN HALF the effort. [place] lifts or holds trunk or limbs and provides more than half the effort. 2-Hqtbecapc-ezgukc does ALL the effort. Patient does none of the effort to complete the activity. Or, the assistance of 2 or more helpers is required for the patient to complete the activity. If activity was not attempted, code reason: 7-Patient Refused. 9-Not Applicable-not attempted and the patient did not perform the activity before the current illness, exacerbation or injury. 10-Not Attempted due to Environmental Limitations-(lack of equipment, weather restraints, etc.). 88-Not Attempted due to Medical Conditions or Safety Concerns. Eating (QC): 6 (IND per pt report) Oral Hygiene (QC): 6 (IND standing at sink.) Shower/Bathe Self (QC): 3 (Min A with buttocks, and BLEs (lower legs/feet) for thoroughness) Upper Body Dressing (QC): 6 (IND) Lower Body Dressing (QC): 3 (Min A with threading RLE into shorts) On/Off Footwear: 3 (Min A with managing both socks up all the way. Pt able to doff both socks and thread both feet back into socks, using sock aide on RLE.) Toileting Hygiene (QC): 3 (Per clincial judgment, pt would require hygiene assistance for thoroughness) Other Treatment [id number]: Pt in recliner, used FWW to transfer into bathroom and onto shower chair, OT managed portable O2 tank. Pt doffed clothes, completed shower, then donned clothes. Pt then stood at sink to brush teeth and comb hair independently. Pt used FWW to transfer to EOB, OT managed O2 tubing, then pt transferred supine without assistance. Pt returned to bed at end of tx per nu rsing request in order for powders, creams, and harjit wraps to be applied. Post tx, pt in bed, call light in reach and all needs met. [id number]: Pt in bed, transferred supine to sit EOB, SBA. Pt used FWW to perform functional mobility to therapy gym. In order to increase BUE strength and activity tolerance, pt completed x15 mins on arm bike, x20 Watt resistance, rest breaks as needed. Pt returned to his room, transferring back to bed. OT cued pt on using hand rails to boost up towards HOB. OT assisted pt with positioning to comfort.theron Post tx, pt in bed, call light in reach and all needs met. Education OT Patient Education: Correct positioning, Energy conservation, Modified ADL techniques, Progress toward Goal/Update tx plan, Purpose of tx/functional activities, Rehab process, Safety issues, Transfer techniques, Use of adapted equipment Teaching Recipient: Patient Teaching Methods: Discussion Response to Teaching: Verbalize Understanding OT Short Term Goals Short Term Goals Time Frame: Jun 14, 2022 Shower/bathe self: 4 Lower body dressin Putting on/taking off footwear: 4 OT Assisted Goals Nib Finisher Goals Time Frame: Jun 30, 2022 Acute change in mental status: 0 Inattention: 0 Disorganized thinkin Altered level of consciousness: 0 Eating (QC): 6 Oral Hygiene (QC): 6 Toileting Hygiene (QC): 6 Shower/Bathe Self (QC): 6 Upper Body Dressing (QC): 6 Lower Body Dressing (QC): 6 On/Off Footwear (QC): 6 Additional Goals: 1-Demonstrate ADL Tasks, 2-Verbalize Understanding, 3- ImproveStrength/Niya 1=Demonstrate adherence to instructed precautions during ADL tasks. 2=Patient will verbalize/demonstrate understanding of assistive de vices/modifications for ADL. 3=Patient will improve strength/tolerance for activity to enable patient to perform ADL's. OT Education/Plan Problem List/Assessment Assessment: Decreased Activ Tolerance, Decreased UE Strength, Impaired I ADL's, Impaired Self-Care Skills Discharge Recommendations Plan/Recommendations: Continue POC Treatment Plan/Plan of Care Patient would benefit from OT for education, treatment and training to promote independence in ADL's, mobility, safety and/or upper extremity function for ADL's. Plan of Care: ADL Retraining, Functional Mobility, Group Exercise/Act as Ind, UE Funct Exercise/Act Treatment Duration: Jun 30, 2022 Frequency: At least 5 of 7 days/Wk (IRF) Estimated Hrs Per Day: 1.5 hours per day Agreement: Yes Rehab Potential: Good Time/GCodes Start Time: 09:00 ([id number]) Stop Time: 13:30 ([id number]) Total Time Billed (hr/min): 90 Billed Treatment Time 9814-8447 1, ADL 4 1335-0550 1, FA (15'), EX (15') VERONICA SHEPPARD OT Jun 08, 2022 09:50
--- NOTE | 2022-06-08 11:20 | Physical Therapy Daily Note ---
PT Daily Note-Current Subjective Pt. states he is so tired after morning therapies and was hoping for a nap but will agree to some gait and ex. Pain Location: No Pain Reported Section J - Health Conditions 1. Rarely or not at all 2. Occasionally 3. Frequently 4. Almost constantly 8. Unable to answer Pain Effect on Sleep: 1 Pain Interference with Therapy: 1 Pain Interference w/Day-to-Day: 1 Mental Status Patient Orientation: Normal For Age Attachments: Oxygen Transfers SCALE: Activities may be completed with or without assistive devices. 5-Rbddxzaznz-jcljpjr completes the activity by him/herself with no assistance from a helper. 5-Set-up or Clean-up Assistance-helper sets up or cleans up; patient completes activity. [place] assists only prior to or following the activity. 4-Supervision or Touching Assistance-helper provides verbal cues and/or touching/steadying and/or contact guard assistance as patient completes activity. Assistance may be provided throughout the activity or intermittently. 3-Partial/Moderate Assistance-helper does LESS THAN HALF the effort. [place] lifts, holds or supports trunk or limbs, but provides less than half the effort. 2-Substantial/Maximal Assistance-helper does MORE THAN HALF the effort. [place] lifts or holds trunk or limbs and provides more than half the effort. 5-Qmxgvuery-lwobti does ALL the effort. Patient does none of the effort to complete the activity. Or, the assistance of 2 or more helpers is required for the patient to complete the activity. If activity was not attempted, code reason: 7-Patient Refused. 9-Not Applicable-not attempted and the patient did not perform the activity before the current illness, exacerbation or injury. 10-Not Attempted due to Environmental Limitations-(lack of equipment, weather restraints, etc.). 88-Not Attempted due to Medical Conditions or Safety Concerns. Roll Left & Right (QC): 6 Sit to Lying (QC): 6 Lying to Sitting/Side of Bed(Q: 6 Sit to Stand (QC): 6 Chair/Pwv-im-Whupx Xfer(QC): 6 Weight Bearing Full Weight Bearing Full Weight Bearing Gait Training Does the Patient Walk?: Yes Gait Assistive Device: FWW 75ftx2 FWW SBA and assist for O2 at 2 L Exercises Supine Ex: Quad Set, Heel Slides, Hip abd/add Supine Reps: 12 Seated Therapy Exercises: Ankle pumps, Sit to stand, Long arc quads, Hip flexion Seated Reps: 10 Treatments bed TRFs, sit to stands, gait, LE therex, up in recliner after Rx , elder and table insitu, needs met Assessment Current Status: Good Progress PT Undergraduate Internship Goals Nursing Home Goals PT Undergraduate Internship Goals Time Frame: Jun 24, 2022 Roll Left & Right (QC): 6 Sit to Lying (QC): 6 Lying-Sitting on Side/Bed(QC): 6 Sit to Stand (QC): 6 Chair/Rsu-df-Ayatz Xfer(QC): 6 Toilet Transfer (QC): 6 Car Transfer (QC): 6 Does the Patient Walk: Yes Walk 10 feet (QC): 6 Walk 50ft with 2 Turns (QC): 6 Walk 150 ft (QC): 6 Walking 10ft on Uneven Surface: 6 1 Step (curb) (QC): 4 4 Steps (QC): 4 12 Steps (QC): 4 Picking up an Object (QC): 6 Does the Pt use WC or Scooter?: No Wheel 50 feet with 2 turns (QC: 9 Wheel 150 feet: 9 PT Plan Treatment/Plan Treatment Plan: Continue Plan of Care Treatment Plan: Bed Mobility, Concurrent Therapy, Education, Functional Activity Niya, Functional Strength, Group Therapy, Gait, Safety, Therapeutic Exercise, Transfers Treatment Duration: Jun 24, 2022 Frequency: At least 5 of 7 days/Wk (IRF) Estimated Hrs Per Day: 1.5 hours per day Patient and/or Family Agrees t: Yes Safety Risks/Education Patient Education: Gait Training, Transfer Techniques, Disease Process, Safety Issues Teaching Recipient: Patient Teaching Methods: Demonstration, Discussion Response to Teaching: Verbalize Understanding, Return Demonstration, Reinfor cement Needed Time/GCodes Time In: 1050 Time Out: 1120 Total Billed Treatment Time: 30 Total Billed Treatment 1,GT15m,EX15m LIGIA CORTEZ BEAD MAKER Jun 08, 2022 11:20
[2022-06-08 19:43] VITALS: BP 120/67
--- NOTE | 2022-06-09 05:34 | PM&R Progress Note ---
Subjective HPI/CC On Admission Date Seen by Provider: Jun 09, 2022 Time Seen by Provider: 12:30 Subjective/Events-last exam 06/09/2022: Dramatically improved No pain BM+ Edema improved with wraps 06/08/2022: No major issues Weaning O2 BP improved after med changes Appreciate Dr Uribe 06/07/2022: Patient doing well overall Frustrated he is still wearing O2 No pain Rash appears improved Reviewed meds Dr Uribe evaluating his cardiac meds and BP meds Review of Systems General: Fatigue, Malaise Objective Exam Vital Signs Vital Signs Date Time Temp Pulse Resp B/P (MAP) Pulse Ox O2 Delivery O2 Flow Rate FiO2 06/09/22 20:35 96 Nasal Cannula 2.00 06/09/22 20:21 36.5 62 22 97/63 (74) Capillary Refill : General Appearance: No Apparent Distress, WD/WN, Chronically ill HEENT: PERRL/EOMI, Normal ENT Inspection, Pharynx Normal Neck: Full Range of Motion, Normal Inspection, Non Tender, Supple, Carotid Bruit Respiratory: Chest Non Tender, Lungs Clear, Normal Breath Sounds, No Accessory Muscle Use, No Respiratory Distress Cardiovascular: No Edema, No Gallop, No JVD, No Murmur, Normal Peripheral Pulses, Irregularly Irregular Gastrointestinal: Normal Bowel Sounds, No Organomegaly, No Pulsatile Mass, Non Tender, Soft Back: Normal Inspection, No CVA Tenderness, No Vertebral Tenderness Extremity: Normal Capillary Refill, Normal Inspection, Normal Range of Motion, Non Tender, No Calf Tenderness, No Pedal Edema Neurologic/Psychiatric: Alert, Oriented x3, Normal Mood/Affect, entry level programmer II-XII Norm as Tested, Abnormal Gait, Depressed Affect, Motor Weakness Skin: Normal Color, Warm/Dry Lymphatic: No Adenopathy Results/Procedures Lab Laboratory Tests 06/09/22 06:08 Patient resulted labs reviewed. FIM Transfers Therapy Code Descriptions/Definitions Functional [place] Measure: 0=Not Assessed/NA 4=Minimal Assistance 1=Total Assistance 5=Supervision or Setup 2=Maximal Assistance 6=Modified [place] 3=Moderate Assistance 7=Complete IndependenceSCALE: Activities may be completed with or without assistive devices. 7-Mjpsjdartq-wjzymgj completes the activity by him/herself with no assistance from a helper. 5-Set-up or Clean-up Assistance-helper sets up or cleans up; patient completes activity. [place] assists only prior to or following the activity. 4-Supervision or Touching Assistance-helper provides verbal cues and/or touching/steadying and/or contact guard assistance as patient completes activity. Assistance may be provided throughout the activity or intermittently. 3-Partial/Moderate Assistance-helper does LESS THAN HALF the effort. [place] lifts, holds or supports trunk or limbs, but provides less than half the effort. 2-Substantial/Maximal Assistance-helper does MORE THAN HALF the effort. [place] lifts or holds trunk or limbs and provides more than half the effort. 4-Kswvcoopm-sywjqk does ALL the effort. Patient does none of the effort to complete the activity. Or, the assistance of 2 or more helpers is required for the patient to complete the activity. If activity was not attempted, code reason: 7-Patient Refused. 9-Not Applicable-not attempted and the patient did not perform the activity before the current illness, exacerbation or injury. 10-Not Attempted due to Environmental Limitations-(lack of equipment, weather restraints, etc.). 88-Not Attempted due to Medical Conditions or Safety Concerns. Roll Left to Right (QC): 6 Sit to Lying (QC): 6 Sit to Stand (QC): 6 Chair/Zxp-pk-Hapvq Xfer(QC): 6 Car Transfer (QC): 4 Gait Training Does the Patient Walk?: Yes Distance: 15' Walk 10 feet (QC): 4 Walk 50 ft with 2 Turns(QC): 4 Walk 150 ft (QC): 4 Walking 10ft/uneven surface-QC: 4 Gait Persons Needed: 1 Gait Assistive Device: FWW Wheelchair Training Does the Pt Use a Wheelchair?: No Wheel 50 ft with 2 turns (QC): 9 Wheel 150 ft (QC): 9 Type of Wheelchair: N/A Stair Training #of Steps: 8 1 Step (curb) (QC): 4 4 Steps (QC): 4 12 Steps (QC): 88 Balance Picking up an Object (QC): 88 ADL-Treatment Eating (QC): 6 (IND per pt report) Oral Hygiene (QC): 6 (IND standing at sink.) Shower/Bathe Self (QC): 3 (Min A with buttocks, and BLEs (lower legs/feet) for thoroughness) Upper Body Dressing (QC): 6 (IND) Lower Body Dressing (QC): 3 (Min A with threading RLE into shorts) On/Off Footwear (QC): 3 (Min A with managing both socks up all the way. Pt able to doff both socks and thread both feet back into socks, using sock aide on RLE.) Toileting Hygiene (QC): 3 (Per clincial judgment, pt would require hygiene assistance for thoroughness) Assessment/Plan Assessment and Plan Assess & Plan/Chief Complaint Assessment: Myopathy s/p cardiogenic shock Pulmonary Hypertension with Mitral Regurgitation Heart Failure due to Afib RVR Hypokalemia h/o Acute on chronic respiratory failure Recent Pneumonia Resolved right lower extremity cellulitis Recent Acute kidney injury Anasarca Atrial fibrillation w/RVR now much improved on Amiodarone Recent COVID Central line required due to critical illness Coagulopathy due to Eliquis and acute renal failure Chronic hypoxia supplemental oxygen required since last admit Plan: Intense therapy Dr Uribe consult Rash management 06/07/2022: Monitor closely Rash treatment 06/08/2022: Wean O2 Monitor closely 06/09/2022: NICOLLE wraps legs Monitor O2 sat (1) Acute on chronic HFrEF (heart failure with reduced ejection fraction) (2) Persistent atrial fibrillation (3) Cardiomyopathy GISELLA KENNEDY DO Jun 09, 2022 05:34
[2022-06-09 06:32] LABS: CALCIUM 8.1 MG/DL (8.5-10.1); CREATININE SERUM 1.45 MG/DL (0.60-1.30); MAGNESIUM 2.2 MG/DL (1.6-2.4); POTASSIUM 3.8 MMOL/L (3.6-5.0)
[2022-06-09 07:06] VITALS: BP 109/71
[2022-06-09] MEDS: FOLIC ACID 1 MG TAB PO SCH (07:35)
[2022-06-09] MEDS: LACTOBACILLUS ACIDOPHILUS (PROBIOTIC) CAPSULE PO SCH (07:35)
[2022-06-09] MEDS: FAMOTIDINE 20 MG (PEPCID) TABLET PO SCH ×2 (07:35→20:36)
[2022-06-09] MEDS: BUMETANIDE 1 MG (BUMEX) TAB PO SCH (07:35)
[2022-06-09] MEDS: APIXABAN 5 MG (ELIQUIS) TABLET PO SCH ×2 (07:35→20:36)
[2022-06-09] MEDS: fluCOnazole (DIFLUCAN) 100 MG TAB PO SCH (07:36)
[2022-06-09] MEDS: AMIODARONE 200 MG (CORDARONE) TAB PO SCH ×2 (07:36→20:35)
[2022-06-09] MEDS: THIAMINE 100 MG (VITAMIN B-1) TAB PO SCH (07:36)
[2022-06-09] MEDS: MULTIVITAMINS LIQUID 15 ML UDC PO SCH ×2 (07:36→10:56)
[2022-06-09] MEDS: MAGNESIUM OXIDE (MAG-OX)400 MG TAB PO SCH ×2 (07:37→20:36)
[2022-06-09] MEDS: MICONAZOLE 2% POWDER (DESENEX AF) 90 GM TOP SCH ×2 (07:37→20:37)
[2022-06-09] MEDS: MICONAZOLE NITRATE 2% CRM 30 GM TP SCH ×2 (07:37→20:37)
[2022-06-09] MEDS: polyethylene glycoL POWDER 17 GM (MIRALAX) PACK PO SCH (08:39)
[2022-06-09] MEDS: DOCUSATE SODIUM 100 MG (COLACE) CAP PO SCH ×2 (08:39→20:34)
[2022-06-09] MEDS: SENNOSIDES 8.6 MG (SENOKOT) TAB PO SCH ×2 (08:39→20:36)
--- NOTE | 2022-06-09 09:12 | Occupational Ther Daily Note ---
OT Current Status-Daily Note Subjective Pt in bed with and nursing present. He agrees to OT. Appearance Pt left sitting in recliner with all needs met. Mental Status/Objective Patient Orientation: Person, Place, Time, Situation Attachments: Oxygen (Per nursing, OT able to wean pt to 1 L after ensuring his O2 levels were stable with activity) Acute change in mental status: 0 Inattention: 0 Disorganized thinkin Altered level of consciousness: 0 ADL-Treatment Therapy Code Descriptions/Definitions Functional [place] Measure: 0=Not Assessed/NA 4=Minimal Assistance 1=Total Assistance 5=Supervision or Setup 2=Maximal Assistance 6=Modified [place] 3=Moderate Assistance 7=Complete IndependenceSCALE: Activities may be completed with or without assistive devices. 8-Hslansixzb-ymwesfa completes the activity by him/herself with no assistance from a helper. 5-Set-up or Clean-up Assistance-helper sets up or cleans up; patient completes activity. [place] assists only prior to or following the activity. 4-Supervision or Touching Assistance-helper provides verbal cues and/or touching/steadying and/or contact guard assistance as patient completes activity. Assistance may be provided throughout the activity or intermittently. 3-Partial/Moderate Assistance-helper does LESS THAN HALF the effort. [place] lifts, holds or supports trunk or limbs, but provides less than half the effort. 2-Substantial/Maximal Assistance-helper does MORE THAN HALF the effort. [place] lifts or holds trunk or limbs and provides more than half the effort. 0-Hrgiarbjs-sxpuge does ALL the effort. Patient does none of the effort to complete the activity. Or, the assistance of 2 or more helpers is required for the patient to complete the activity. If activity was not attempted, code reason: 7-Patient Refused. 9-Not Applicable-not attempted and the patient did not perform the activity before the current illness, exacerbation or injury. 10-Not Attempted due to Environmental Limitations-(lack of equipment, weather restraints, etc.). 88-Not Attempted due to Medical Conditions or Safety Concerns. Eating (QC): 6 Oral Hygiene (QC): 6 Upper Body Dressing (QC): 5 Toileting Hygiene (QC): 3 (min assist for thoroughness) Toilet Transfer (QC): 5 Pt donned shorts supine in bed with assistance of , due to nursing harjit wrapping legs for lymphedema management. Sit<>stand transfers: SBA. Pt was still at 2L of O2 upon arrival. After consulting and getting confirmation with nursing, pt weaned to 1 L of O2 after ensuring O2 levels remained stable after activity. Pt ambulated to toilet and performed toileting hygiene with min assist for thoroughness. Upon entering bathroom, therapist noticed pool of blood from pt scratching back of leg, nursing notified. Pt sat in recliner and finished breakfast with independence. Doffed/donned clean shirt with set up. Pt able to ambulate to bathroom with no AD to perform grooming standing at sink with independence. Pt showed good balance and safety in ambulation without device. Pt tends to lean backwards while standing, but is able to self-correct. Pt may need walker/cane for longer distances for energy conservation purposes. Other Treatment Pt performed mock work related (half-way) tasks by pushing cart with weights (total of 16lbs) on it ~500 feet total. Pt practiced retrieving weights (5lb, 3lb, and 2lb) and transporting them to [employer]. Pt required cues for slowing down task to ensure balance is maintained and for improved body mechanics. All functional activities performed today, was to assist pt in endurance, dynamic standing/gait balance, strengthening, and coordination. Education OT Patient Education: Correct positioning, Energy conservation, Modified ADL techniques, Progress toward Goal/Update tx plan, Purpose of tx/functional activities, Reviewed precautions, Rehab process, Safety issues, Transfer techniques Teaching Recipient: Patient Teaching Methods: Demonstration, Discussion Response to Teaching: Verbalize Understanding, Return Demonstration OT Short Term Goals Short Term Goals Time Frame: Jun 14, 2022 Shower/bathe self: 4 Lower body dressin Putting on/taking off footwear: 4 OT Care Home Goals Filler Room Attendant Goals Time Frame: Jun 30, 2022 Acute change in mental status: 0 Inattention: 0 Disorganized thinkin Altered level of consciousness: 0 Eating (QC): 6 Oral Hygiene (QC): 6 Toileting Hygiene (QC): 6 Shower/Bathe Self (QC): 6 Upper Body Dressing (QC): 6 Lower Body Dressing (QC): 6 On/Off Footwear (QC): 6 Additional Goals: 1-Demonstrate ADL Tasks, 2-Verbalize Understanding, 3- ImproveStrength/Niya 1=Demonstrate adherence to instructed precautions during ADL tasks. 2=Patient will verbalize/demonstrate understanding of assistive devices/modifications for ADL. 3=Patient will improve strength/tolerance for activity to enable patient to perform ADL's. OT Education/Plan Problem List/Assessment Assessment: Decreased Activ Tolerance, Decreased Safety Aware, Decreased UE Strength, Edema, Impaired Coordination, Impaired Funct Balance, Impaired I ADL's, Impaired Self-Care Skills Discharge Recommendations Plan/Recommendations: Continue POC Treatment Plan/Plan of Care Treatment,Training & Education: Yes Patient would benefit from OT for education, treatment and training to promote independence in ADL's, mobility, safety and/or upper extremity function for ADL's. Plan of Care: ADL Retraining, Functional Mobility, Group Exercise/Act as Ind, UE Funct Exercise/Act Treatment Duration: Jun 30, 2022 Frequency: At least 5 of 7 days/Wk (IRF) Estimated Hrs Per Day: 1.5 hours per day Agreement: Yes Rehab Potential: Good Time/GCodes Start Time: 07:40 Stop Time: 09:10 Total Time Billed (hr/min): 90 Billed Treatment Time 1 visit ADL x4 (60 min) FA x2 (30 min) Rochelle Wesley OT Jun 09, 2022 09:12
[2022-06-09 09:19] VITALS: BP 100/63
--- NOTE | 2022-06-09 10:20 | Cardiology Progress Note ---
Subjective Date Seen by Provider: Jun 09, 2022 Time Seen by Provider: 10:19 Subjective/Events-last exam Patient was seen and evaluated at bedside, sitting comfortably, no new complaint. Review of Systems General: No Chills, No Night Sweats; Fatigue, Malaise; No Appetite, No Other HEENT: No Head Aches, No Visual Changes, No Eye Pain, No Ear Pain, No Dysphasia, No Sinus Congestion, No Post Nasal Drip, No Sore Throat, No Other Pulmonary: No Dyspnea, No Cough, No Pleuritic Chest Pain, No Other Cardiovascular: Edema; No: Chest Pain, Palpitations, Orthopnea, Paroxysmal Noc. Dyspnea, Lt Headedness, Other Objective-Cardiology Exam Last Set of Vital Signs Vital Signs 06/09/22 06/09/22 06/09/22 07:06 09:08 09:19 Temp 36.0 Pulse 55 Resp 20 B/P (MAP) 100/63 (75) Pulse Ox 94 O2 Delivery Nasal Cannula O2 Flow Rate 1.00 I&O Intake and Output 06/09/22 00:00 Intake Total 600 ml Output Total 800 ml Balance -200 ml Intake Oral 600 ml Output Urine Total 800 ml # Bowel Movements 1 General: Alert, Oriented X3 HEENT: Atraumatic Neck: Supple Lungs: Clear to Auscultation Heart: Normal S1, Normal S2, Other (irregularly irregular) Abdomen: Normal Bowel Sounds, Soft Extremities: No Clubbing Skin: No Rashes, No Significant Lesion Neuro: Normal Speech, Cranial Nerves 3-12 NL Psych/Mental Status: Mental Status NL, Mood NL Results Lab Laboratory Tests 06/09/22 06:08 A/P-Cardiology Admission Diagnosis Critical illness myopathy PAF CHF HTN Assessment/Plan History of Right leg cellulitis/fasciitis with sepsis, hospitalization ealier this month, was transferred to [place]. Status post pneumonia, received Rocephin at [place], finishes full antibiotic dose and reported improvement. Generalized debility/weakness, critical illness myopathy, continue PT/OT Paroxysmal atrial fibrillation, History of paroxysmal atrial fibrillation, Status post KERRY and electrical cardioversion on May 17, 2022, returned to atrial fibrillation during the hospitalization and then he was transferred to [place] Intolerant to [facility]. Currently on Amiodarone orally, continue to monitor. EKG showing rate controlled afib. Peripheral edema, anasarca, having significant edema. Was on Bumex and metolazone at [place] I restarted Bumex earlier this week, I will decrease the dose to 1 mg daily and monitor renal function. [id number] score of 2, maintained on Eliquis. History of Thrombocytopenia, patient had hematuria and GI bleed. Currently on Eliquis, continue to monitor. Congestive heart failure, acute left ventricular systolic dysfunction 2D echo was done on May 14, 2022 showing dilated left ventricle with ejection fraction 25 to 30%, diffuse hypokinesia, grade 2 diastolic dysfunction, biatrial enlargement, moderate mitral regurgitation, PA pressure 40 to 45 mmHg Probably nonischemic cardiomyopathy, last stress test was done in May 2020 showing no significant ischemia or infarction Probably heart failure secondary to tachycardia Unable to tolerate diuretics at this time d/t hypotension. Hypertension, currently hypotensive, hold Coreg for systolic blood pressure less than 100 Acute renal insufficiency, slight deterioration in renal function, continue to monitor History of syncope and fall from a ladder with subarachnoid hemorrhage in May 2020. Treated at . Stress test done in May 2020 showing no significant ischemia or infarction, at that time his echo was normal. AUDELIA BEARD MD Jun 09, 2022 10:20
--- NOTE | 2022-06-09 12:03 | Physical Therapy Daily Note ---
PT Daily Note-Current Subjective Pt. agrees to Rx. States he has O2 at home with long cord that reaches to the bedroom. Pt. states he felt "like i was tipping backwards twice" while trialing without FWW with OT. Pt. states he has never used a cane but would like to walk without the FWW, pt. also shared he has had a fall previously, "fell and busted my head open" Pain Location: No Pain Reported Section J - Health Conditions 1. Rarely or not at all 2. Occasionally 3. Frequently 4. Almost constantly 8. Unable to answer Pain Effect on Sleep: 1 Pain Interference with Therapy: 1 Pain Interference w/Day-to-Day: 1 Mental Status Patient Orientation: Normal For Age Attachments: Oxygen (1L) Transfers SCALE: Activities may be completed with or without assistive devices. 1-Davqvclyta-nqkovco completes the activity by him/herself with no assistance from a helper. 5-Set-up or Clean-up Assistance-helper sets up or cleans up; patient completes activity. [place] assists only prior to or following the activity. 4-Supervision or Touching Assistance-helper provides verbal cues and/or touching/steadying and/or contact guard assistance as patient completes activity. Assistance may be provided throughout the activity or intermittently. 3-Partial/Moderate Assistance-helper does LESS THAN HALF the effort. [place] lifts, holds or supports trunk or limbs, but provides less than half the effort. 2-Substantial/Maximal Assistance-helper does MORE THAN HALF the effort. [place] lifts or holds trunk or limbs and provides more than half the effort. 3-Ybstlfisx-pghfsm does ALL the effort. Patient does none of the effort to complete the activity. Or, the assistance of 2 or more helpers is required for the patient to complete the activity. If activity was not attempted, code reason: 7-Patient Refused. 9-Not Applicable-not attempted and the patient did not perform the activity before the current illness, exacerbation or injury. 10-Not Attempted due to Environmental Limitations-(lack of equipment, weather restraints, etc.). 88-Not Attempted due to Medical Conditions or Safety Concerns. Roll Left & Right (QC): 6 Sit to Lying (QC): 6 Lying to Sitting/Side of Bed(Q: 6 Sit to Stand (QC): 6 Chair/Lsf-qy-Rfabi Xfer(QC): 6 Weight Bearing Full Weight Bearing Full Weight Bearing Gait Training Does the Patient Walk?: Yes Walk 10 feet (QC): 4 Walk 50 ft with 2 Turns(QC): 4 Walk 150 ft (QC): 4 Gait Persons Needed: 1 Gait Assistive Device: FWW 125pyx2, [id number] FWW SBA and assist for O2 Exercises Seated Therapy Exercises: Ankle pumps, Sit to stand, Long arc quads, Hip flexion, Hip abd/add Seated Reps: 10 Treatments GUADALUPE balance conducted as pt. shares he would like to go without use of FWW, GUADALUPE score 41/56 showing that pt. needs FWW but closes to converting to cane use. Pt. on 1 L O2 for gait desatted to 85% after 135 ft , recovering to 95% after approx1.5 mins rest . pts LOB was signif with attempts at SLS and standing with one foot in front. FWW provides energy conservation , SPC would not , pt. still has considerable edema and hopes are that if this is managed and pt rids of the extra weight he will have improved balance and will not desat Assessment Current Status: Good Progress gives full efort PT Detention Goals Arts Administrator Or Manager Goals PT Arts Administrator Or Manager Goals Time Frame: Jun 24, 2022 Roll Left & Right (QC): 6 Sit to Lying (QC): 6 Lying-Sitting on Side/Bed(QC): 6 Sit to Stand (QC): 6 Chair/Aho-ht-Xvmro Xfer(QC): 6 Toilet Transfer (QC): 6 Car Transfer (QC): 6 Does the Patient Walk: Yes Walk 10 feet (QC): 6 Walk 50ft with 2 Turns (QC): 6 Walk 150 ft (QC): 6 Walking 10ft on Uneven Surface: 6 1 Step (curb) (QC): 4 4 Steps (QC): 4 12 Steps (QC): 4 Picking up an Object (QC): 6 Does the Pt use WC or Scooter?: No Wheel 50 feet with 2 turns (QC: 9 Wheel 150 feet: 9 PT Plan Treatment/Plan Treatment Plan: Continue Plan of Care Treatment Plan: Bed Mobility, Concurrent Therapy, Education, Functional Activity Niya, Functional Strength, Group Therapy, Gait, Safety, Therapeutic Exercise, Transfers Treatment Duration: Jun 24, 2022 Frequency: At least 5 of 7 days/Wk (IRF) Estimated Hrs Per Day: 1.5 hours per day Patient and/or Family Agrees t: Yes Safety Risks/Education Patient Education: Gait Training, Transfer Techniques, Correct Positioning, Safety Issues Teaching Recipient: Patient Teaching Methods: Demonstration, Discussion Response to Teaching: Verbalize Understanding, Return Demonstration, Reinforcement Needed Time/GCodes Time In: 1100 Time Out: 1200 Total Billed Treatment Time: 60 Total Billed Treatment 1,NM30m,GT30m LIGIA CORTEZ PTA Jun 09, 2022 12:03
--- NOTE | 2022-06-09 13:28 | Physical Therapy Daily Note ---
PT Daily Note-Current Subjective Pt. agrees to Rx, wants to go to bed after Rx. Not sure how he feels about the SPC yet Pain Location: No Pain Reported Section J - Health Conditions 1. Rarely or not at all 2. Occasionally 3. Frequently 4. Almost constantly 8. Unable to answer Pain Effect on Sleep: 1 Pain Interference with Therapy: 1 Pain Interference w/Day-to-Day: 1 Mental Status Patient Orientation: Normal For Age Attachments: Oxygen Transfers SCALE: Activities may be completed with or without assistive devices. 9-Hnvontkqyb-bagavkt completes the activity by him/herself with no assistance from a helper. 5-Set-up or Clean-up Assistance-helper sets up or cleans up; patient completes activity. [place] assists only prior to or following the activity. 4-Supervision or Touching Assistance-helper provides verbal cues and/or touching/steadying and/or contact guard assistance as patient completes activit y. Assistance may be provided throughout the activity or intermittently. 3-Partial/Moderate Assistance-helper does LESS THAN HALF the effort. [place] lifts, holds or supports trunk or limbs, but provides less than half the effort. 2-Substantial/Maximal Assistance-helper does MORE THAN HALF the effort. [place] lifts or holds trunk or limbs and provides more than half the effort. 2-Kwpdmiphs-esjrzi does ALL the effort. Patient does none of the effort to complete the activity. Or, the assistance of 2 or more helpers is required for the patient to complete the activity. If activity was not attempted, code reason: 7-Patient Refused. 9-Not Applicable-not attempted and the patient did not perform the activity before the current illness, exacerbation or injury. 10-Not Attempted due to Environmental Limitations-(lack of equipment, weather restraints, etc.). 88-Not Attempted due to Medical Conditions or Safety Concerns. all SBA Weight Bearing Full Weight Bearing Full Weight Bearing Gait Training Does the Patient Walk?: Yes Gait Assistive Device: Cane Single Point initiated use of SPC with instruction in sequence, ambulated 6- ft , awkward, pt. instructed to only use this with therapies, not up around in room until further instruction and efficiencyy with device Exercises Supine Ex: Ankle pumps, Quad Set, Heel Slides, Straight leg raise Supine Reps: 10 Treatments gait with cane, therex, TRFs Assessment Current Status: Good Progress PT Clinical Cytogenetics Director Goals Custodial Goals PT Clinical Cytogenetics Director Goals Time Frame: Jun 24, 2022 Roll Left & Right (QC): 6 Sit to Lying (QC): 6 Lying-Sitting on Side/Bed(QC): 6 Sit to Stand (QC): 6 Chair/Eho-ee-Tbmeg Xfer(QC): 6 Toilet Transfer (QC): 6 Car Transfer (QC): 6 Does the Patient Walk: Yes Walk 10 feet (QC): 6 Walk 50ft with 2 Turns (QC): 6 Walk 150 ft (QC): 6 Walking 10ft on Uneven Surface: 6 1 Step (curb) (QC): 4 4 Steps (QC): 4 12 Steps (QC): 4 Picking up an Object (QC): 6 Does the Pt use WC or Scooter?: No Wheel 50 feet with 2 turns (QC: 9 Wheel 150 feet: 9 PT Plan Treatment/Plan Treatment Plan: Continue Plan of Care Treatment Plan: Bed Mobility, Concurrent Therapy, Education, Functional Activity Niya, Functional Strength, Group Therapy, Gait, Safety, Therapeutic Exercise, Transfers Treatment Duration: Jun 24, 2022 Frequency: At least 5 of 7 days/Wk (IRF) Estimated Hrs Per Day: 1.5 hours per day Patient and/or Family Agrees t: Yes Safety Risks/Education Patient Education: Gait Training, Transfer Techniques Teaching Recipient: Patient Teaching Methods: Demonstration, Discussion Response to Teaching: Verbalize Understanding, Return Demonstration, Reinforcement Needed Time/GCodes Time In: 1300 Time Out: 1330 Total Billed Treatment Time: 30 Total Billed Treatment 1,GT20m,FA10m LIGIA CORTEZ [employer] MEMBER Jun 09, 2022 13:28
[2022-06-09 20:21] VITALS: BP 97/63
--- NOTE | 2022-06-10 06:29 | PM&R Progress Note ---
Subjective HPI/CC On Admission Date Seen by Provider: Jun 10, 2022 Time Seen by Provider: 11:30 Subjective/Events-last exam 06/10/2022: Patient doing well NICOLLE wraps have really helped his leg edema No pain Eating well Weaning off O2 06/09/2022: Dramatically improved No pain BM+ Edema improved with wraps 06/08/2022: No major issues Weaning O2 BP improved after med changes Appreciate Dr Uribe 06/07/2022: Patient doing well overall Frustrated he is still wearing O2 No pain Rash appears improved Reviewed meds Dr Uribe evaluating his cardiac meds and BP meds Review of Systems General: Fatigue, Malaise Objective Exam Vital Signs Vital Signs Date Time Temp Pulse Resp B/P (MAP) Pulse Ox O2 Delivery O2 Flow Rate FiO2 06/10/22 09:20 94 Nasal Cannula 2.00 06/10/22 08:11 36.2 64 20 110/66 (81) Capillary Refill : General Appearance: No Apparent Distress, WD/WN, Chronically ill HEENT: PERRL/EOMI, Normal ENT Inspection, Pharynx Normal Neck: Full Range of Motion, Normal Inspection, Non Tender, Supple, Carotid Bruit Respiratory: Chest Non Tender, Lungs Clear, Normal Breath Sounds, No Accessory Muscle Use, No Respiratory Distress Cardiovascular: No Edema, No Gallop, No JVD, No Murmur, Normal Peripheral Pulses, Irregularly Irregular Gastrointestinal: Normal Bowel Sounds, No Organomegaly, No Pulsatile Mass, Non Tender, Soft Back: Normal Inspection, No CVA Tenderness, No Vertebral Tenderness Extremity: Normal Capillary Refill, Normal Inspection, Normal Range of Motion, Non Tender, No Calf Tenderness, No Pedal Edema Neurologic/Psychiatric: Alert, Oriented x3, Normal Mood/Affect, legal services manager II-XII Norm as Tested, Abnormal Gait, Depressed Affect, Motor Weakness Skin: Normal Color, Warm/Dry Lymphatic: No Adenopathy Results/Procedures Lab Patient resulted labs reviewed. FIM Transfers Therapy Code Descriptions/Definitions Functional [place] Measure: 0=Not Assessed/NA 4=Minimal Assistance 1=Total Assistance 5=Supervision or Setup 2=Maximal Assistance 6=Modified [place] 3=Moderate Assistance 7=Complete IndependenceSCALE: Activities may be completed with or without assistive devices. 5-Kfmmjqaoba-kmrlgzt completes the activity by him/herself with no assistance from a helper. 5-Set-up or Clean-up Assistance-helper sets up or cleans up; patient completes activity. [place] assists only prior to or following the activity. 4-Supervision or Touching Assistance-helper provides verbal cues and/or touching/steadying and/or contact guard assistance as patient completes activity. Assistance may be provided throughout the activity or intermittently. 3-Partial/Moderate Assistance-helper does LESS THAN HALF the effort. [place] lifts, holds or supports trunk or limbs, but provides less than half the effort. 2-Substantial/Maximal Assistance-helper does MORE THAN HALF the effort. [place] lifts or holds trunk or limbs and provides more than half the effort. 8-Youqtjixl-aztztk does ALL the effort. Patient does none of the effort to complete the activity. Or, the assistance of 2 or more helpers is required for the patient to complete the activity. If activity was not attempted, code reason: 7-Patient Refused. 9-Not Applicable-not attempted and the patient did not perform the activity before the current illness, exacerbation or injury. 10-Not Attempted due to Environmental Limitations-(lack of equipment, weather restraints, etc.). 88-Not Attempted due to Medical Conditions or Safety Concerns. Roll Left to Right (QC): 6 Sit to Lying (QC): 6 Sit to Stand (QC): 6 Chair/Eer-ec-Zhxml Xfer(QC): 6 Car Transfer (QC): 4 Gait Training Does the Patient Walk?: Yes Distance: 15' Walk 10 feet (QC): 4 Walk 50 ft with 2 Turns(QC): 4 Walk 150 ft (QC): 4 Walking 10ft/uneven surface-QC: 4 Gait Persons Needed: 1 Gait Assistive Device: Cane Single Point Wheelchair Training Does the Pt Use a Wheelchair?: No Wheel 50 ft with 2 turns (QC): 9 Wheel 150 ft (QC): 9 Type of Wheelchair: N/A Stair Training #of Steps: 8 1 Step (curb) (QC): 4 4 Steps (QC): 4 12 Steps (QC): 88 Balance Picking up an Object (QC): 88 ADL-Treatment Eating (QC): 6 Oral Hygiene (QC): 6 Shower/Bathe Self (QC): 3 (Min A with buttocks, and BLEs (lower legs/feet) for thoroughness) Upper Body Dressing (QC): 5 On/Off Footwear (QC): 3 (Min A with managing both socks up all the way. Pt able to doff both socks and thread both feet back into socks, using sock aide on RLE.) Toileting Hygiene (QC): 3 (min assist for thoroughness) Toilet Transfer (QC): 5 Assessment/Plan Assessment and Plan Assess & Plan/Chief Complaint Assessment: Myopathy s/p cardiogenic shock Pulmonary Hypertension with Mitral Regurgitation Heart Failure due to Afib RVR Hypokalemia h/o Acute on chronic respiratory failure Recent Pneumonia Resolved right lower extremity cellulitis Recent Acute kidney injury Anasarca Atrial fibrillation w/RVR now much improved on Amiodarone Recent COVID Central line required due to critical illness Coagulopathy due to Eliquis and acute renal failure Chronic hypoxia supplemental oxygen required since last admit Plan: Intense therapy Dr Uribe consult Rash management 06/07/2022: Monitor closely Rash treatment 06/08/2022: Wean O2 Monitor closely 06/09/2022: NICOLLE wraps legs Monitor O2 sat 06/10/2022: Wean O2 (1) Acute on chronic HFrEF (heart failure with reduced ejection fraction) (2) Persistent atrial fibrillation (3) Cardiomyopathy GISELLA KENNEDY DO Jun 10, 2022 06:28
[2022-06-10 08:11] VITALS: BP 110/66
[2022-06-10] MEDS: polyethylene glycoL POWDER 17 GM (MIRALAX) PACK PO SCH (09:22)
[2022-06-10] MEDS: DOCUSATE SODIUM 100 MG (COLACE) CAP PO SCH ×2 (09:22→20:20)
[2022-06-10] MEDS: SENNOSIDES 8.6 MG (SENOKOT) TAB PO SCH ×2 (09:22→20:20)
[2022-06-10] MEDS: AMIODARONE 200 MG (CORDARONE) TAB PO SCH ×2 (09:48→20:33)
[2022-06-10] MEDS: LACTOBACILLUS ACIDOPHILUS (PROBIOTIC) CAPSULE PO SCH (09:48)
[2022-06-10] MEDS: MICONAZOLE 2% POWDER (DESENEX AF) 90 GM TOP SCH ×2 (09:48→20:34)
[2022-06-10] MEDS: BUMETANIDE 1 MG (BUMEX) TAB PO SCH (09:48)
[2022-06-10] MEDS: FOLIC ACID 1 MG TAB PO SCH (09:48)
[2022-06-10] MEDS: THIAMINE 100 MG (VITAMIN B-1) TAB PO SCH (09:48)
[2022-06-10] MEDS: MAGNESIUM OXIDE (MAG-OX)400 MG TAB PO SCH ×2 (09:48→20:33)
[2022-06-10] MEDS: FAMOTIDINE 20 MG (PEPCID) TABLET PO SCH ×2 (09:48→20:33)
[2022-06-10] MEDS: APIXABAN 5 MG (ELIQUIS) TABLET PO SCH ×2 (09:48→20:33)
[2022-06-10] MEDS: fluCOnazole (DIFLUCAN) 100 MG TAB PO SCH (09:48)
[2022-06-10] MEDS: MICONAZOLE NITRATE 2% CRM 30 GM TP SCH ×2 (09:49→20:34)
--- NOTE | 2022-06-10 10:45 | Cardiology Progress Note ---
Subjective Date Seen by Provider: Jun 10, 2022 Time Seen by Provider: 10:44 Subjective/Events-last exam Patient was seen at bedside, laying down comfortably, feeling better, still having edema Review of Systems General: No Chills, No Night Sweats; Fatigue; No Malaise, No Appetite, No Other HEENT: No Head Aches, No Visual Changes, No Eye Pain, No Ear Pain, No Dysphasia, No Sinus Congestion, No Post Nasal Drip, No Sore Throat, No Other Pulmonary: No Dyspnea, No Cough, No Pleuritic Chest Pain, No Other Cardiovascular: Edema; No: Chest Pain, Palpitations, Orthopnea, Paroxysmal Noc. Dyspnea, Lt Headedness, Other Objective-Cardiology Exam Last Set of Vital Signs Vital Signs 06/10/22 06/10/22 08:11 09:20 Temp 36.2 Pulse 64 Resp 20 B/P (MAP) 110/66 (81) Pulse Ox 94 O2 Delivery Nasal Cannula O2 Flow Rate 2.00 I&O Intake and Output 06/10/22 00:00 Intake Total 970 ml Output Total 1170 ml Balance -200 ml Intake Oral 970 ml Output Urine Total 1170 ml # Bowel Movements 1 General: Alert, Oriented X3 HEENT: Atraumatic Neck: Supple Lungs: Clear to Auscultation Heart: Normal S1, Normal S2, Other (irregularly irregular) Abdomen: Normal Bowel Sounds, Soft Extremities: No Clubbing Skin: No Rashes, No Significant Lesion Neuro: Normal Speech, Cranial Nerves 3-12 NL Psych/Mental Status: Mental Status NL, Mood NL A/P-Cardiology Admission Diagnosis Critical illness myopathy PAF CHF HTN Assessment/Plan History of Right leg cellulitis/fasciitis with sepsis, hospitalization ealier this month, was transferred to [place]. Status post pneumonia, received Rocephin at [place], finishes full antibiotic dose and reported improvement. Generalized debility/weakness, critical illness myopathy, continue PT/OT Paroxysmal atrial fibrillation, History of paroxysmal atrial fibrillation, Status post KERRY and electrical cardioversion on May 17, 2022, returned to atrial fibrillation during the hospitalization and then he was transferred to [place] Intolerant to [place]. Currently on Amiodarone orally, continue to monitor. EKG showing rate controlled afib. Peripheral edema, anasarca, having significant edema. Was on Bumex and metolazone at [place] Bumex was restarted, currently on 1 mg daily Monitor daily weight. Continue to monitor renal function [id number] score of 2, maintained on Eliquis. History of Thrombocytopenia, patient had hematuria and GI bleed. Currently on Eliquis, continue to monitor. Congestive heart failure, acute left ventricular systolic dysfunction 2D echo was done on May 14, 2022 showing dilated left ventricle with ejecti on fraction 25 to 30%, diffuse hypokinesia, grade 2 diastolic dysfunction, biatrial enlargement, moderate mitral regurgitation, PA pressure 40 to 45 mmHg Probably nonischemic cardiomyopathy, last stress test was done in May 2020 showing no significant ischemia or infarction Probably heart failure secondary to tachycardia Unable to tolerate diuretics at this time d/t hypotension. Hypertension, currently hypotensive, hold Coreg for systolic blood pressure less than 100 Acute renal insufficiency, slight deterioration in renal function, continue to monitor History of syncope and fall from a ladder with subarachnoid hemorrhage in May 2020. Treated at . Stress test done in May 2020 showing no significant ischemia or infarction, at that time his echo was normal. AUDELIA BEARD MD Jun 10, 2022 10:45
--- NOTE | 2022-06-10 11:38 | Physical Therapy Daily Note ---
PT Daily Note-Current Subjective Upon arrival, pt was supine in bed. Pt reports no pain and and states that he slept well. Pt agrees to PT. Pain Section J - Health Conditions 1. Rarely or not at all 2. Occasionally 3. Frequently 4. Almost constantly 8. Unable to answer Pain Effect on Sleep: 1 Pain Interference with Therapy: 1 Pain Interference w/Day-to-Day: 1 Mental Status Patient Orientation: Person, Situation Attachments: Oxygen Transfers SCALE: Activities may be completed with or without assistive devices. 0-Refruhrykt-oentoli completes the activity by him/herself with no assistance from a helper. 5-Set-up or Clean-up Assistance-helper sets up or cleans up; patient completes activity. [place] assists only prior to or following the activity. 4-Supervision or Touching Assistance-helper provides verbal cues and/or touching/steadying and/or contact guard assistance as patient completes activity. Assistance may be provided throughout the activity or intermittently. 3-Partial/Moderate Assistance-helper does LESS THAN HALF the effort. [place] lif ts, holds or supports trunk or limbs, but provides less than half the effort. 2-Substantial/Maximal Assistance-helper does MORE THAN HALF the effort. [place] lifts or holds trunk or limbs and provides more than half the effort. 3-Sczotugal-tweyon does ALL the effort. Patient does none of the effort to complete the activity. Or, the assistance of 2 or more helpers is required for the patient to complete the activity. If activity was not attempted, code reason: 7-Patient Refused. 9-Not Applicable-not attempted and the patient did not perform the activity before the current illness, exacerbation or injury. 10-Not Attempted due to Environmental Limitations-(lack of equipment, weather restraints, etc.). 88-Not Attempted due to Medical Conditions or Safety Concerns. Roll Left & Right (QC): 4 Weight Bearing Full Weight Bearing Full Weight Bearing Gait Training Does the Patient Walk?: No and Walking Goal IS indicated Exercises Supine Ex: Ankle pumps (20), Quad Set, Glut sets, Heel Slides, Straight leg raise, Hip abd/add Supine Reps: 15 Treatments Pt completed all activities listed above. During PT, pt required assistance with changing bed mat, therapist call RN for assistance. Pt reports no pain during session. Once PT was concluded, pt was in bed with call light and tray in reach and all needs met. Assessment Current Status: Good Progress Pt would benefit from continued PT to address strength and activity tolerance. PT Intermediate Goals Intermediate Goals PT Core Feeder Goals Time Frame: Jun 24, 2022 Roll Left & Right (QC): 6 Sit to Lying (QC): 6 Lying-Sitting on Side/Bed(QC): 6 Sit to Stand (QC): 6 Chair/Cnk-bb-Qqqbh Xfer(QC): 6 Toilet Transfer (QC): 6 Car Transfer (QC): 6 Does the Patient Walk: Yes Walk 10 feet (QC): 6 Walk 50ft with 2 Turns (QC): 6 Walk 150 ft (QC): 6 Walking 10ft on Uneven Surface: 6 1 Step (curb) (QC): 4 4 Steps (QC): 4 12 Steps (QC): 4 Picking up an Object (QC): 6 Does the Pt use WC or Scooter?: No Wheel 50 feet with 2 turns (QC: 9 Wheel 150 feet: 9 PT Plan Problem List Problem List: Activity Tolerance, Functional Strength Treatment/Plan Treatment Plan: Continue Plan of Care Treatment Plan: Bed Mobility, Concurrent Therapy, Education, Functional Activity Niya, Functional Strength, Group Therapy, Gait, Safety, Therapeutic Exercise, Transfers Treatment Duration: Jun 24, 2022 Frequency: At least 5 of 7 days/Wk (IRF) Estimated Hrs Per Day: 1.5 hours per day Patient and/or Family Agrees t: Yes Time/GCodes Time In: 1103 Time Out: 1122 Total Billed Treatment Time: 19 Total Billed Treatment 1, EX WICHO MCCLURE PTA Jun 10, 2022 11:38
[2022-06-10 19:02] VITALS: BP 112/71
[2022-06-11 07:14] VITALS: BP 109/67
--- NOTE | 2022-06-11 08:02 | PM&R Progress Note ---
Subjective HPI/CC On Admission Date Seen by Provider: Jun 11, 2022 Time Seen by Provider: 11:00 Subjective/Events-last exam 06/11/2022: Doing well Improved status No pain Improved dyspnea Less edema 06/10/2022: Patient doing well NICOLLE wraps have really helped his leg edema No pain Eating well Weaning off O2 06/09/2022: Dramatically improved No pain BM+ Edema improved with wraps 06/08/2022: No major issues Weaning O2 BP improved after med changes Appreciate Dr Uribe 06/07/2022: Patient doing well overall Frustrated he is still wearing O2 No pain Rash appears improved Reviewed meds Dr Uribe evaluating his cardiac meds and BP meds Review of Systems General: Fatigue, Malaise Objective Exam Vital Signs Vital Signs Date Time Temp Pulse Resp B/P (MAP) Pulse Ox O2 Delivery O2 Flow Rate FiO2 06/11/22 12:03 Nasal Cannula 2.00 06/11/22 09:02 94 06/11/22 07:14 36.5 60 18 109/67 (81) Capillary Refill : General Appearance: No Apparent Distress, WD/WN, Chronically ill HEENT: PERRL/EOMI, Normal ENT Inspection, Pharynx Normal Neck: Full Range of Motion, Normal Inspection, Non Tender, Supple, Carotid Bruit Respiratory: Chest Non Tender, Lungs Clear, Normal Breath Sounds, No Accessory Muscle Use, No Respiratory Distress Cardiovascular: No Edema, No Gallop, No JVD, No Murmur, Normal Peripheral Pulses, Irregularly Irregular Gastrointestinal: Normal Bowel Sounds, No Organomegaly, No Pulsatile Mass, Non Tender, Soft Back: Normal Inspection, No CVA Tenderness, No Vertebral Tenderness Extremity: Normal Capillary Refill, Normal Inspection, Normal Range of Motion, Non Tender, No Calf Tenderness, No Pedal Edema Neurologic/Psychiatric: Alert, Oriented x3, Normal Mood/Affect, merchandiser seasonal II-XII Norm as Tested, Abnormal Gait, Depressed Affect, Motor Weakness Skin: Normal Color, Warm/Dry Lymphatic: No Adenopathy Results/Procedures Lab Patient resulted labs reviewed. FIM Transfers Therapy Code Descriptions/Definitions Functional [place] Measure: 0=Not Assessed/NA 4=Minimal Assistance 1=Total Assistance 5=Supervision or Setup 2=Maximal Assistance 6=Modified [place] 3=Moderate Assistance 7=Complete IndependenceSCALE: Activities may be completed with or without assistive devices. 7-Zjovmvkijw-hcdwozm completes the activity by him/herself with no assistance from a helper. 5-Set-up or Clean-up Assistance-helper sets up or cleans up; patient completes activity. [place] assists only prior to or following the activity. 4-Supervision or Touching Assistance-helper provides verbal cues and/or touching/steadying and/or contact guard assistance as patient completes activity. Assistance may be provided throughout the activity or intermittently. 3-Partial/Moderate Assistance-helper does LESS THAN HALF the effort. [place] lifts, holds or supports trunk or limbs, but provides less than half the effort. 2-Substantial/Maximal Assistance-helper does MORE THAN HALF the effort. [place] lifts or holds trunk or limbs and provides more than half the effort. 5-Sjrujzhek-ttdlco does ALL the effort. Patient does none of the effort to complete the activity. Or, the assistance of 2 or more helpers is required for the patient to complete the activity. If activity was not attempted, code reason: 7-Patient Refused. 9-Not Applicable-not attempted and the patient did not perform the activity before the current illness, exacerbation or injury. 10-Not Attempted due to Environmental Limitations-(lack of equipment, weather restraints, etc.). 88-Not Attempted due to Medical Conditions or Safety Concerns. Roll Left to Right (QC): 4 Sit to Lying (QC): 6 Sit to Stand (QC): 6 Chair/Jpb-dc-Pcrvo Xfer(QC): 6 Car Transfer (QC): 4 Gait Training Does the Patient Walk?: No and Walking Goal IS indicated Distance: 15' Walk 10 feet (QC): 4 Walk 50 ft with 2 Turns(QC): 4 Walk 150 ft (QC): 4 Walking 10ft/uneven surface-QC: 4 Gait Persons Needed: 1 Gait Assistive Device: Cane Single Point Wheelchair Training Does the Pt Use a Wheelchair?: No Wheel 50 ft with 2 turns (QC): 9 Wheel 150 ft (QC): 9 Type of Wheelchair: N/A Stair Training #of Steps: 8 1 Step (curb) (QC): 4 4 Steps (QC): 4 12 Steps (QC): 88 Balance Picking up an Object (QC): 88 ADL-Treatment Eating (QC): 6 Oral Hygiene (QC): 6 Shower/Bathe Self (QC): 3 (Min A with buttocks, and BLEs (lower legs/feet) for thoroughness) Upper Body Dressing (QC): 5 On/Off Footwear (QC): 3 (Min A with managing both socks up all the way. Pt able to doff both socks and thread both feet back into socks, using sock aide on RLE.) Toileting Hygiene (QC): 3 (min assist for thoroughness) Toilet Transfer (QC): 5 Assessment/Plan Assessment and Plan Assess & Plan/Chief Complaint Assessment: Myopathy s/p cardiogenic shock Pulmonary Hypertension with Mitral Regurgitation Heart Failure due to Afib RVR Hypokalemia h/o Acute on chronic respiratory failure Recent Pneumonia Resolved right lower extremity cellulitis Recent Acute kidney injury Anasarca Atrial fibrillation w/RVR now much improved on Amiodarone Recent COVID Central line required due to critical illness Coagulopathy due to Eliquis and acute renal failure Chronic hypoxia supplemental oxygen required since last admit Plan: Intense therapy Dr Uribe consult Rash management 06/07/2022: Monitor closely Rash treatment 06/08/2022: Wean O2 Monitor closely 06/09/2022: NICOLLE wraps legs Monitor O2 sat 06/10/2022: Wean O2 06/11/2022: Monitor edema Wean O2 (1) Acute on chronic HFrEF (heart failure with reduced ejection fraction) (2) Persistent atrial fibrillation (3) Cardiomyopathy GISELLA KENNEDY DO Jun 11, 2022 08:02
[2022-06-11] MEDS: DOCUSATE SODIUM 100 MG (COLACE) CAP PO SCH ×2 (08:23→20:26)
[2022-06-11] MEDS: polyethylene glycoL POWDER 17 GM (MIRALAX) PACK PO SCH (08:24)
[2022-06-11] MEDS: SENNOSIDES 8.6 MG (SENOKOT) TAB PO SCH ×2 (08:24→20:26)
[2022-06-11] MEDS: MICONAZOLE 2% POWDER (DESENEX AF) 90 GM TOP SCH ×2 (08:56→20:26)
[2022-06-11] MEDS: FOLIC ACID 1 MG TAB PO SCH (08:57)
[2022-06-11] MEDS: MAGNESIUM OXIDE (MAG-OX)400 MG TAB PO SCH ×2 (08:57→20:25)
[2022-06-11] MEDS: NYSTATIN CREAM (MYCOSTATIN) 30 GM TUBE TP PRN ×2 (08:57→20:27)
[2022-06-11] MEDS: THIAMINE 100 MG (VITAMIN B-1) TAB PO SCH (08:57)
[2022-06-11] MEDS: FAMOTIDINE 20 MG (PEPCID) TABLET PO SCH ×2 (08:57→20:24)
[2022-06-11] MEDS: BUMETANIDE 1 MG (BUMEX) TAB PO SCH (08:57)
[2022-06-11] MEDS: AMIODARONE 200 MG (CORDARONE) TAB PO SCH ×2 (08:58→20:25)
[2022-06-11] MEDS: LACTOBACILLUS ACIDOPHILUS (PROBIOTIC) CAPSULE PO SCH (08:58)
[2022-06-11] MEDS: APIXABAN 5 MG (ELIQUIS) TABLET PO SCH ×2 (08:58→20:25)
[2022-06-11] MEDS: MICONAZOLE NITRATE 2% CRM 30 GM TP SCH ×2 (08:58→20:26)
--- NOTE | 2022-06-11 10:17 | Cardiology Progress Note ---
Subjective Date Seen by Provider: Jun 11, 2022 Time Seen by Provider: 10:16 Subjective/Events-last exam Patient was seen at bedside, laying down comfortably. Feeling better today. Review of Systems General: No Chills, No Night Sweats; Fatigue, Malaise; No Appetite, No Other HEENT: No Head Aches, No Visual Changes, No Eye Pain, No Ear Pain, No Dysphasia, No Sinus Congestion, No Post Nasal Drip, No Sore Throat, No Other Pulmonary: No Dyspnea, No Cough, No Pleuritic Chest Pain, No Other Cardiovascular: Edema; No: Chest Pain, Palpitations, Orthopnea, Paroxysmal Noc. Dyspnea, Lt Headedness, Other Objective-Cardiology Exam Last Set of Vital Signs Vital Signs 06/11/22 06/11/22 07:14 09:02 Temp 36.5 Pulse 60 Resp 18 B/P (MAP) 109/67 (81) Pulse Ox 94 O2 Delivery Nasal Cannula O2 Flow Rate 2.00 I&O Intake and Output 06/11/22 00:00 Intake Total 1360 ml Output Total 1325 ml Balance 35 ml Intake Oral 1360 ml Output Urine Total 1325 ml # Bowel Movements 1 General: Alert, Oriented X3 HEENT: Atraumatic Neck: Supple Lungs: Clear to Auscultation Heart: Normal S1, Normal S2, Other (irregularly irregular) Abdomen: Normal Bowel Sounds, Soft Extremities: No Clubbing, Other (Peripheral edema) Skin: No Rashes, No Significant Lesion Neuro: Normal Speech, Cranial Nerves 3-12 NL Psych/Mental Status: Mental Status NL, Mood NL A/P-Cardiology Admission Diagnosis Critical illness myopathy PAF CHF HTN Assessment/Plan History of Right leg cellulitis/fasciitis with sepsis, hospitalization ealier this month, was transferred to [facility]. Status post pneumonia, received Rocephin at [facility], finishes full antibiotic dose and reported improvement. Generalized debility/weakness, critical illness myopathy, continue PT/OT Paroxysmal atrial fibrillation, History of paroxysmal atrial fibrillation, Status post KERRY and electrical cardioversion on May 17, 2022, returned to atrial fibrillation during the hospitalization and then he was transferred to [facility] Intolerant to [facility]. Currently on Amiodarone orally, continue to monitor. EKG showing rate controlled afib. Peripheral edema, anasarca, having significant edema. Was on Bumex and metolazone at [facility] Bumex was restarted, currently on 1 mg daily Monitor daily weight. Continue to monitor renal function [id number] score of 2, maintained on Eliquis. History of Thrombocytopenia, patient had hematuria and GI bleed. Currently on Eliquis, continue to monitor. Congestive heart failure, acute left ventricular systolic dysfunction 2D echo was done on May 14, 2022 showing dilated left ventricle with ejection fraction 25 to 30%, diffuse hypokinesia, grade 2 diastolic dysfunction, biatrial enlargement, moderate mitral regurgitation, PA pressure 40 to 45 mmHg Probably nonischemic cardiomyopathy, last stress test was done in May 2020 showing no significant ischemia or infarction Probably heart failure secondary to tachycardia Unable to tolerate diuretics at this time d/t hypotension. Hypertension, currently hypotensive, hold Coreg for systolic blood pressure less than 100 Acute renal insufficiency, slight deterioration in renal function, continue to monitor History of syncope and fall from a ladder with subarachnoid hemorrhage in May 2020. Treated at . Stress test done in May 2020 showing no significant ischemia or infarction, at that time his echo was normal. AUDELIA BEARD MD Jun 11, 2022 10:17
[2022-06-11 19:31] VITALS: BP 114/71
--- NOTE | 2022-06-12 05:26 | PM&R Progress Note ---
Subjective HPI/CC On Admission Date Seen by Provider: Jun 12, 2022 Time Seen by Provider: 08:30 Subjective/Events-last exam 06/12/2022: Patient doing really well Lower legs are much improved Leg wrappings are helping No major concerns 06/11/2022: Doing well Improved status No pain Improved dyspnea Less edema 06/10/2022: Patient doing well NICOLLE wraps have really helped his leg edema No pain Eating well Weaning off O2 06/09/2022: Dramatically improved No pain BM+ Edema improved with wraps 06/08/2022: No major issues Weaning O2 BP improved after med changes Appreciate Dr Uribe 06/07/2022: Patient doing well overall Frustrated he is still wearing O2 No pain Rash appears improved Reviewed meds Dr Uribe evaluating his cardiac meds and BP meds Review of Systems General: Fatigue, Malaise Objective Exam Vital Signs Vital Signs Date Time Temp Pulse Resp B/P (MAP) Pulse Ox O2 Delivery O2 Flow Rate FiO2 06/12/22 21:08 36.4 55 24 109/70 (83) 98 Nasal Cannula 2.00 Capillary Refill : General Appearance: No Apparent Distress, WD/WN, Chronically ill HEENT: PERRL/EOMI, Normal ENT Inspection, Pharynx Normal Neck: Full Range of Motion, Normal Inspection, Non Tender, Supple, Carotid Bruit Respiratory: Chest Non Tender, Lungs Clear, Normal Breath Sounds, No Accessory Muscle Use, No Respiratory Distress Cardiovascular: No Edema, No Gallop, No JVD, No Murmur, Normal Peripheral Pulses, Irregularly Irregular Gastrointestinal: Normal Bowel Sounds, No Organomegaly, No Pulsatile Mass, Non Tender, Soft Back: Normal Inspection, No CVA Tenderness, No Vertebral Tenderness Extremity: Normal Capillary Refill, Normal Inspection, Normal Range of Motion, Non Tender, No Calf Tenderness, No Pedal Edema Neurologic/Psychiatric: Alert, Oriented x3, Normal Mood/Affect, wrapper hands sprayer II-XII Norm as Tested, Abnormal Gait, Depressed Affect, Motor Weakness Skin: Normal Color, Warm/Dry Lymphatic: No Adenopathy Results/Procedures Lab Laboratory Tests 06/12/22 06:04 Patient resulted labs reviewed. FIM Transfers Therapy Code Descriptions/Definitions Functional [place] Measure: 0=Not Assessed/NA 4=Minimal Assistance 1=Total Assistance 5=Supervision or Setup 2=Maximal Assistance 6=Modified [place] 3=Moderate Assistance 7=Complete IndependenceSCALE: Activities may be completed with or without assistive devices. 0-Xcfljuxxbw-kkfhkii completes the activity by him/herself with no assistance from a helper. 5-Set-up or Clean-up Assistance-helper sets up or cleans up; patient completes activity. [place] assists only prior to or following the activity. 4-Supervision or Touching Assistance-helper provides verbal cues and/or touching/steadying and/or contact guard assistance as patient completes activity. Assistance may be provided throughout the activity or intermittently. 3-Partial/Moderate Assistance-helper does LESS THAN HALF the effort. [place] lifts, holds or supports trunk or limbs, but provides less than half the effort. 2-Substantial/Maximal Assistance-helper does MORE THAN HALF the effort. [place] lifts or holds trunk or limbs and provides more than half the effort. 1-Lllxzvbup-golybo does ALL the effort. Patient does none of the effort to complete the activity. Or, the assistance of 2 or more helpers is required for the patient to complete the activity. If activity was not attempted, code reason: 7-Patient Refused. 9-Not Applicable-not attempted and the patient did not perform the activity before the current illness, exacerbation or injury. 10-Not Attempted due to Environmental Limitations-(lack of equipment, weather restraints, etc.). 88-Not Attempted due to Medical Conditions or Safety Concerns. Roll Left to Right (QC): 4 Sit to Lying (QC): 6 Sit to Stand (QC): 6 Chair/Ynp-kw-Wdxqo Xfer(QC): 6 Car Transfer (QC): 4 Gait Training Does the Patient Walk?: No and Walking Goal IS indicated Distance: 15' Walk 10 feet (QC): 4 Walk 50 ft with 2 Turns(QC): 4 Walk 150 ft (QC): 4 Walking 10ft/uneven surface-QC: 4 Gait Persons Needed: 1 Gait Assistive Device: Cane Single Point Wheelchair Training Does the Pt Use a Wheelchair?: No Wheel 50 ft with 2 turns (QC): 9 Wheel 150 ft (QC): 9 Type of Wheelchair: N/A Stair Training #of Steps: 8 1 Step (curb) (QC): 4 4 Steps (QC): 4 12 Steps (QC): 88 Balance Picking up an Object (QC): 88 ADL-Treatment Eating (QC): 6 Oral Hygiene (QC): 6 Shower/Bathe Self (QC): 3 (Min A with buttocks, and BLEs (lower legs/feet) for thoroughness) Upper Body Dressing (QC): 5 On/Off Footwear (QC): 3 (Min A with managing both socks up all the way. Pt able to doff both socks and thread both feet back into socks, using sock aide on RLE.) Toileting Hygiene (QC): 3 (min assist for thoroughness) Toilet Transfer (QC): 5 Assessment/Plan Assessment and Plan Assess & Plan/Chief Complaint Assessment: Myopathy s/p cardiogenic shock Pulmonary Hypertension with Mitral Regurgitation Heart Failure due to Afib RVR Hypokalemia h/o Acute on chronic respiratory failure Recent Pneumonia Resolved right lower extremity cellulitis Recent Acute kidney injury Anasarca Atrial fibrillation w/RVR now much improved on Amiodarone Recent COVID Central line required due to critical illness Coagulopathy due to Eliquis and acute renal failure Chronic hypoxia supplemental oxygen required since last admit Plan: Intense therapy Dr Uribe consult Rash management 06/07/2022: Monitor closely Rash treatment 06/08/2022: Wean O2 Monitor closely 06/09/2022: NICOLLE wraps legs Monitor O2 sat 06/10/2022: Wean O2 06/11/2022: Monitor edema Wean O2 06/12/2022: Monitor closely (1) Acute on chronic HFrEF (heart failure with reduced ejection fraction) (2) Persistent atrial fibrillation (3) Cardiomyopathy GISELLA KENNEDY DO Jun 12, 2022 05:25
[2022-06-12 06:16] LABS: BASOPHILS # (AUTO) 0.1 10^3/uL (0.0-0.1); BASOPHILS % (AUTO) 1 % (0-10); EOSINOPHILS # (AUTO) 0.2 10^3/uL (0.0-0.3); EOSINOPHILS % (AUTO) 3 % (0-10); HEMATOCRIT 32 % (40-54); HEMOGLOBIN 9.9 g/dL (13.3-17.7); LYMPHOCYTES % (AUTO) 13 % (12-44); MEAN CORPUSCULAR HEMOGLOBIN 28 pg (25-34); MEAN CORPUSCULAR HGB CONC 31 g/dL (32-36); MEAN CORPUSCULAR VOLUME 92 fL (80-99); MEAN PLATELET VOLUME 8.4 fL (9.0-12.2); MONOCYTES # (AUTO) 0.5 10^3/uL (0.0-1.0); MONOCYTES % (AUTO) 7 % (0-12); NEUTROPHILS # (AUTO) 5.7 10^3/uL (1.8-7.8); NEUTROPHILS % (AUTO) 76 % (42-75); PLATELET COUNT 170 10^3/uL (130-400); WHITE BLOOD COUNT 7.5 10^3/uL (4.3-11.0)
[2022-06-12 06:36] LABS: ALBUMIN 2.9 GM/DL (3.2-4.5)
[2022-06-12 06:38] LABS: CALCIUM 8.3 MG/DL (8.5-10.1)
[2022-06-12 06:39] LABS: TOTAL PROTEIN 7.1 GM/DL (6.4-8.2)
[2022-06-12 06:41] LABS: BILIRUBIN,TOTAL 1.1 MG/DL (0.1-1.0)
[2022-06-12 06:42] LABS: CREATININE SERUM 1.62 MG/DL (0.60-1.30)
[2022-06-12 06:45] LABS: MAGNESIUM 2.3 MG/DL (1.6-2.4)
[2022-06-12] MEDS: LACTOBACILLUS ACIDOPHILUS (PROBIOTIC) CAPSULE PO SCH (07:42)
[2022-06-12] MEDS: FOLIC ACID 1 MG TAB PO SCH (07:42)
[2022-06-12] MEDS: THIAMINE 100 MG (VITAMIN B-1) TAB PO SCH (07:42)
[2022-06-12] MEDS: BUMETANIDE 1 MG (BUMEX) TAB PO SCH (07:42)
[2022-06-12] MEDS: APIXABAN 5 MG (ELIQUIS) TABLET PO SCH ×2 (07:42→20:58)
[2022-06-12] MEDS: AMIODARONE 200 MG (CORDARONE) TAB PO SCH ×2 (07:42→20:58)
[2022-06-12] MEDS: MAGNESIUM OXIDE (MAG-OX)400 MG TAB PO SCH ×2 (07:43→20:58)
[2022-06-12] MEDS: NYSTATIN CREAM (MYCOSTATIN) 30 GM TUBE TP PRN (07:43)
[2022-06-12] MEDS: MICONAZOLE 2% POWDER (DESENEX AF) 90 GM TOP SCH ×2 (07:43→20:59)
[2022-06-12] MEDS: FAMOTIDINE 20 MG (PEPCID) TABLET PO SCH ×2 (07:43→20:58)
[2022-06-12 07:44] VITALS: BP 115/74
--- NOTE | 2022-06-12 08:32 | Cardiology Progress Note ---
Subjective Date Seen by Provider: Jun 12, 2022 Time Seen by Provider: 08:28 Subjective/Events-last exam Patient is in bed, no new complaints, still having some dyspnea. Review of Systems General: No Chills, No Night Sweats, No Fatigue, No Malaise, No Appetite, No Other HEENT: No Head Aches, No Visual Changes, No Eye Pain, No Ear Pain, No Dysphasia, No Sinus Congestion, No Post Nasal Drip, No Sore Throat, No Other Pulmonary: Dyspnea; No Cough, No Pleuritic Chest Pain, No Other Cardiovascular: Edema; No: Chest Pain, Palpitations, Orthopnea, Paroxysmal Noc. Dyspnea, Lt Headedness, Other Objective-Cardiology Exam Last Set of Vital Signs Vital Signs 06/12/22 07:44 Temp 36.0 Pulse 56 Resp 20 B/P (MAP) 115/74 (88) Pulse Ox 96 O2 Delivery Nasal Cannula O2 Flow Rate 1.00 I&O Intake and Output 06/12/22 00:00 Intake Total 1260 ml Output Total 1100 ml Balance 160 ml Intake Oral 1260 ml Output Urine Total 1100 ml # Bowel Movements 1 General: Alert, Oriented X3 HEENT: Atraumatic Neck: Supple Lungs: Clear to Auscultation Heart: Normal S1, Normal S2, Other (irregularly irregular) Abdomen: Normal Bowel Sounds, Soft Extremities: No Clubbing, Other (Peripheral edema) Skin: No Rashes, No Significant Lesion Neuro: Normal Speech, Cranial Nerves 3-12 NL Psych/Mental Status: Mental Status NL, Mood NL Results Lab Laboratory Tests 06/12/22 06:04 A/P-Cardiology Admission Diagnosis Critical illness myopathy PAF CHF HTN Assessment/Plan History of Right leg cellulitis/fasciitis with sepsis, hospitalization ealier this month, was transferred to [place]. Status post pneumonia, received Rocephin at [facility], finishes full antibiotic dose and reported improvement. Generalized debility/weakness, critical illness myopathy, continue PT/OT Paroxysmal atrial fibrillation, History of paroxysmal atrial fibrillation, Status post KERRY and electrical cardioversion on May 17, 2022, returned to atrial fibrillation during the hospitalization and then he was transferred to [place] Intolerant to [facility]. Currently on Amiodarone orally, continue to monitor. EKG showing rate controlled afib. Peripheral edema, anasarca, having significant edema. Was on Bumex and metolazone at [facility] Bumex was restarted, currently on 1 mg daily I gave additional Zaroxolyn 2.5 mg today. [id number] score of 2, maintained on Eliquis. History of Thrombocytopenia, patient had hematuria and GI bleed. Currently on Eliquis, continue to monitor. Congestive heart failure, acute left ventricular systolic dysfunction 2D echo was done on May 14, 2022 showing dilated left ventricle with ejection fraction 25 to 30%, diffuse hypokinesia, grade 2 diastolic dysfunction, biatrial enlargement, moderate mitral regurgitation, PA pressure 40 to 45 mmHg Probably nonischemic cardiomyopathy, last stress test was done in May 2020 showing no significant ischemia or infarction Probably heart failure secondary to tachycardia Hypertension, controlled, continue to monitor. Acute renal insufficiency, slight deterioration in renal function, continue to monitor History of syncope and fall from a ladder with subarachnoid hemorrhage in May 2020. Treated at . Stress test done in May 2020 showing no significant ischemia or infarction, at that time his echo was normal. Supervisory-Addendum Brief Supervisory Addendum Participated in pt care: history, MDM, physical Personally performed: exam, history, MDM Care discussed with: ANNA Results interpretation: Verified all documentation Notes: Patient was seen and evaluated with Geri, examination performed, management plan was discussed, agree with the current scribed note, I made few changes to the note using Italic font Patient was seen at bedside, laying down comfortably Still having pedal edema with mild dyspnea Maintained on Bumex, I will give 1 dose of Zaroxolyn today Continue to monitor GERI KESSLER Jun 12, 2022 08:32 AUDELIA BEARD MD Jun 12, 2022 10:41
[2022-06-12] MEDS ORDERED: METOLAZONE 2.5 MG (ZAROXOLYN) TAB PO NR (10:00)
--- NOTE | 2022-06-12 10:07 | Occupational Ther Daily Note ---
OT Current Status-Daily Note Subjective No pain reported. Appearance Pt. in bed. Agrees to work with OT. Mental Status/Objective Patient Orientation: Person, Place, Time, Situation Attachments: IV, Oxygen Acute change in mental status: 0 Inattention: 0 Disorganized thinkin Altered level of consciousness: 0 ADL-Treatment Therapy Code Descriptions/Definitions Functional [place] Measure: 0=Not Assessed/NA 4=Minimal Assistance 1=Total Assistance 5=Supervision or Setup 2=Maximal Assistance 6=Modified [place] 3=Moderate Assistance 7=Complete IndependenceSCALE: Activities may be completed with or without assistive devices. 5-Jmcfvfhfda-jylwvfr completes the activity by him/herself with no assistance from a helper. 5-Set-up or Clean-up Assistance-helper sets up or cleans up; patient completes activity. [place] assists only prior to or following the activity. 4-Supervision or Touching Assistance-helper provides verbal cues and/or touching/steadying and/or contact guard assistance as patient completes activity. Assistance may be provided throughout the activity or intermittently. 3-Partial/Moderate Assistance-helper does LESS THAN HALF the effort. [place] lifts, holds or supports trunk or limbs, but provides less than half the effort. 2-Substantial/Maximal Assistance-helper does MORE THAN HALF the effort. [place] lifts or holds trunk or limbs and provides more than half the effort. 1-Ebuttazpr-wzixww does ALL the effort. Patient does none of the effort to complete the activity. Or, the assistance of 2 or more helpers is required for the patient to complete the activity. If activity was not attempted, code reason: 7-Patient Refused. 9-Not Applicable-not attempted and the patient did not perform the activity before the current illness, exacerbation or injury. 10-Not Attempted due to Environmental Limitations-(lack of equipment, weather restraints, etc.). 88-Not Attempted due to Medical Conditions or Safety Concerns. Eating (QC): 6 (per pt.) Oral Hygiene (QC): 7 Shower/Bathe Self (QC): 4 (SBA in shower with balance.) Upper Body Dressing (QC): 3 (Min assist overall. Pt. able to doff shirt, but required assist to don.) Lower Body Dressing (QC): 3 (Mod assist. OT donned shorts over feet while pt. in bed at bed level. Pt. able to pull up over hips.) On/Off Footwear: 3 (Mod assist. Pt. able to don slipper socks with min assist, but required assistance to doff due to positioning and fatigued after ambulating to shower.) Other Treatment Pt. in bed when OT entered room. Pt. transferred supine-sit with SBA. Pt. donned slipper socks with AE and min assist. Ambulated to shower with walker and CGA. Max assist to doff slipper socks once in shower. Pt. able to shower self with SBA for standing balance. Required assistance to don shirt and slipper socks. Ambulated back to bed and transferred supine to rest. OT monitored oxygen throughout and pt. between 92-95% with 1L. OT assisted nursing to don lymphedema wraps on LE. Pt. then ambulated to therapy gym with CGA and walker. Completed 10 minutes on armbike at min resistance. Pt. then donned 1lb. wrist weights to complete fine motor bilateral UE task of nuts/bolts activity. Ambulated back to room and pt. up in chair at end of session. All needs met. Education OT Patient Education: Correct positioning, Exercise program, Modified ADL techniques, Progress toward Goal/Update tx plan, Purpose of tx/functional activities, Reviewed precautions, Rehab process, Transfer techniques, Use of adapted equipment Teaching Recipient: Patient Teaching Methods: Demonstration, Discussion Response to Teaching: Verbalize Understanding, Return Demonstration OT Short Term Goals Short Term Goals Time Frame: Jun 14, 2022 Shower/bathe self: 4 Lower body dressin Putting on/taking off footwear: 4 OT Inside Trucker Goals [facility] Goals Time Frame: Jun 30, 2022 Acute change in mental status: 0 Inattention: 0 Disorganized thinkin Altered level of consciousness: 0 Eating (QC): 6 Oral Hygiene (QC): 6 Toileting Hygiene (QC): 6 Shower/Bathe Self (QC): 6 Upper Body Dressing (QC): 6 Lower Body Dressing (QC): 6 On/Off Footwear (QC): 6 Additional Goals: 1-Demonstrate ADL Tasks, 2-Verbalize Understanding, 3- ImproveStrength/[place] 1=Demonstrate adherence to instructed precautions during ADL tasks. 2=Patient will verbalize/demonstrate understanding of assistive devices/modifications for ADL. 3=Patient will improve strength/tolerance for activity to enable patient to perform ADL's. OT Education/Plan Problem List/Assessment Assessment: Decreased Activ Tolerance, Decreased UE Strength, Impaired Funct Balance, Impaired I ADL's, Impaired Self-Care Skills Discharge Recommendations Plan/Recommendations: Continue POC Therapy Discharge Recommendati: Post Acute OT Equpiment Recommendations-D/C: Hip Kit Treatment Plan/Plan of Care Treatment,Training & Education: Yes Patient would benefit from OT for education, treatment and training to promote independence in ADL's, mobility, safety and/or upper extremity function for ADL's. Plan of Care: ADL Retraining, Functional Mobility, Group Exercise/Act as Ind, UE Funct Exercise/Act Treatment Duration: Jun 30, 2022 Frequency: At least 5 of 7 days/Wk (IRF) Estimated Hrs Per Day: 1.5 hours per day Agreement: Yes Rehab Potential: Good Time/GCodes Start Time: 08:30 Stop Time: 10:00 Total Time Billed (hr/min): 90 Billed Treatment Time 1, ADL x 45minutes, Ex x 15minutes, FA x 30minutes BRITTNEY LOERA OT Jun 12, 2022 10:07
--- NOTE | 2022-06-12 11:53 | Physical Therapy Daily Note ---
PT Daily Note-Current Subjective Pt sitting in recliner upon arrival. Pt agrees to PT for QC scoring for anticipated d/c in a couple days. Pain Location: No Pain Reported Section J - Health Conditions 1. Rarely or not at all 2. Occasionally 3. Frequently 4. Almost constantly 8. Unable to answer Pain Effect on Sleep: 1 Pain Interference with Therapy: 1 Pain Interference w/Day-to-Day: 1 Mental Status Patient Orientation: Person, Place, Time, Situation Attachments: Oxygen (1L) Transfers SCALE: Activities may be completed with or without assistive devices. 4-Xidkxiucol-egnuejd completes the activity by him/herself with no assistance from a helper. 5-Set-up or Clean-up Assistance-helper sets up or cleans up; patient completes activity. [place] assists only prior to or following the activity. 4-Supervision or Touching Assistance-helper provides verbal cues and/or touching/steadying and/or contact guard assistance as patient completes activity. Assistance may be provided throughout the activity or intermittently. 3-Partial/Moderate Assistance-helper does LESS THAN HALF the effort. [place] lifts, holds or supports trunk or limbs, but provides less than half the effort. 2-Substantial/Maximal Assistance-helper does MORE THAN HALF the effort. [place] lifts or holds trunk or limbs and provides more than half the effort. 7-Zpxvbubpj-spowiz does ALL the effort. Patient does none of the effort to complete the activity. Or, the assistance of 2 or more helpers is required for the patient to complete the activity. If activity was not attempted, code reason: 7-Patient Refused. 9-Not Applicable-not attempted and the patient did not perform the activity before the current illness, exacerbation or injury. 10-Not Attempted due to Environmental Limitations-(lack of equipment, weather restraints, etc.). 88-Not Attempted due to Medical Conditions or Safety Concerns. Roll Left & Right (QC): 6 Sit to Lying (QC): 6 Lying to Sitting/Side of Bed(Q: 6 Sit to Stand (QC): 6 Chair/Hny-fz-Akpxb Xfer(QC): 6 Toilet Transfer (QC): 6 Car Transfer (QC): 6 Weight Bearing Full Weight Bearing Full Weight Bearing Gait Training Does the Patient Walk?: Yes Distance: 150' x2 Walk 10 feet (QC): 6 Walk 50 ft with 2 Turns(QC): 6 Walk 150 ft (QC): 5 Walking 10ft/uneven surface-QC: 6 Gait Assistive Device: FWW Pt fatigues and needs extended RB by end of amb. Wheelchair Training Does the Pt Use a Wheelchair?: No Stair Training Stair Training: Handrails/: 2 handrails #of Steps: 8 1 Step (curb) (QC): 5 4 Steps (QC): 5 12 Steps (QC): 88 Stairs: Pattern: Step to Balance Picking up an Object (QC): 5 Exercises NuStep Minutes: 10 NuStep Workload: 4 Treatments Pt completes QC scoring items listed above as well as uses NuStep to aid in improvement of activity tolerance. Pt returns to room at end of tx. Pt resting sitting upright in bed with all needs met, call light in hand. Assessment Current Status: Good Progress Pt is improving with what is capable of being completed although still fatigues and needs extended RB. Pt requires the use of FWW instead of a cane or another device due to pt's decreased activity tolerance and extended recovery time due to pt's previous COVID diagnosis. Pt fatigues much quicker with less support that the other devices provide. Pt's safety and mobility are compromised when pt fatigues. PT Child Care Counselor Goals Chcf Goals PT [facility] Goals Time Frame: Jun 24, 2022 Roll Left & Right (QC): 6 Sit to Lying (QC): 6 Lying-Sitting on Side/Bed(QC): 6 Sit to Stand (QC): 6 Chair/Hod-pi-Xnuqz Xfer(QC): 6 Toilet Transfer (QC): 6 Car Transfer (QC): 6 Does the Patient Walk: Yes Walk 10 feet (QC): 6 Walk 50ft with 2 Turns (QC): 6 Walk 150 ft (QC): 6 Walking 10ft on Uneven Surface: 6 1 Step (curb) (QC): 4 4 Steps (QC): 4 12 Steps (QC): 4 Picking up an Object (QC): 6 Does the Pt use WC or Scooter?: No Wheel 50 feet with 2 turns (QC: 9 Wheel 150 feet: 9 PT Plan Problem List Problem List: Activity Tolerance Treatment/Plan Treatment Plan: Continue Plan of Care Treatment Plan: Bed Mobility, Concurrent Therapy, Education, Functional Activity Ni[place], Functional Strength, Group Therapy, Gait, Safety, Therapeutic Exercise, Transfers Treatment Duration: Jun 24, 2022 Frequency: At least 5 of 7 days/Wk (IRF) Estimated Hrs Per Day: 1.5 hours per day Patient and/or Family Agrees t: Yes Safety Risks/Education Patient Education: Disease Process Teaching Recipient: Patient Teaching Methods: Discussion Response to Teaching: Verbalize Understanding Time/GCodes Time In: 1030 Time Out: 1145 Total Billed Treatment Time: 75 Total Billed Treatment 1, GT (20m), EX (15m) & FA x3 (40m) LAURA MARIA [employer] Jun 12, 2022 11:53
[2022-06-12 19:45] VITALS: BP 97/68
[2022-06-12] MEDS: DOCUSATE SODIUM 100 MG (COLACE) CAP PO SCH ×2 (20:58→21:26)
[2022-06-12] MEDS: polyethylene glycoL POWDER 17 GM (MIRALAX) PACK PO SCH (20:58)
[2022-06-12] MEDS: SENNOSIDES 8.6 MG (SENOKOT) TAB PO SCH ×2 (20:59→21:26)
[2022-06-12 21:08] VITALS: BP 109/70
[2022-06-12] MEDS: MICONAZOLE NITRATE 2% CRM 30 GM TP SCH (21:51)
--- NOTE | 2022-06-13 06:29 | PM&R Progress Note ---
Subjective HPI/CC On Admission Date Seen by Provider: Jun 13, 2022 Time Seen by Provider: 08:45 Subjective/Events-last exam 06/13/2022: Pt had an episode of dyspnea Back on 2L Updated Dr. Uribe Extra doses of Roxilin was given Very complicated situation 06/12/2022: Patient doing really well Lower legs are much improved Leg wrappings are helping No major concerns 06/11/2022: Doing well Improved status No pain Improved dyspnea Less edema 06/10/2022: Patient doing well NICOLLE wraps have really helped his leg edema No pain Eating well Weaning off O2 06/09/2022: Dramatically improved No pain BM+ Edema improved with wraps 06/08/2022: No major issues Weaning O2 BP improved after med changes Appreciate Dr Uribe 06/07/2022: Patient doing well overall Frustrated he is still wearing O2 No pain Rash appears improved Reviewed meds Dr Uribe evaluating his cardiac meds and BP meds Review of Systems General: Fatigue, Malaise Pulmonary: Dyspnea Objective Exam Vital Signs Vital Signs Date Time Temp Pulse Resp B/P (MAP) Pulse Ox O2 Delivery O2 Flow Rate FiO2 06/13/22 20:40 Nasal Cannula 2.00 06/13/22 19:30 36.5 53 20 102/71 (81) 98 Capillary Refill : General Appearance: No Apparent Distress, WD/WN, Chronically ill HEENT: PERRL/EOMI, Normal ENT Inspection, Pharynx Normal Neck: Full Range of Motion, Normal Inspection, Non Tender, Supple, Carotid Bruit Respiratory: Chest Non Tender, Lungs Clear, Normal Breath Sounds, No Accessory Muscle Use, No Respiratory Distress Cardiovascular: No Edema, No Gallop, No JVD, No Murmur, Normal Peripheral Pulses, Irregularly Irregular Gastrointestinal: Normal Bowel Sounds, No Organomegaly, No Pulsatile Mass, Non Tender, Soft Back: Normal Inspection, No CVA Tenderness, No Vertebral Tenderness Extremity: Normal Capillary Refill, Normal Inspection, Normal Range of Motion, Non Tender, No Calf Tenderness, No Pedal Edema Neurologic/Psychiatric: Alert, Oriented x3, Normal Mood/Affect, recruiter manager II-XII Norm as Tested, Abnormal Gait, Depressed Affect, Motor Weakness Skin: Normal Color, Warm/Dry Lymphatic: No Adenopathy Results/Procedures Lab Patient resulted labs reviewed. FIM Transfers Therapy Code Descriptions/Definitions Functional [place] Measure: 0=Not Assessed/NA 4=Minimal Assistance 1=Total Assistance 5=Supervision or Setup 2=Maximal Assistance 6=Modified [place] 3=Moderate Assistance 7=Complete IndependenceSCALE: Activities may be completed with or without assistive devices. 5-Tvpalyqcui-lxolrxj completes the activity by him/herself with no assistance from a helper. 5-Set-up or Clean-up Assistance-helper sets up or cleans up; patient completes activity. [place] assists only prior to or following the activity. 4-Supervision or Touching Assistance-helper provides verbal cues and/or touching/steadying and/or contact guard assistance as patient completes activity. Assistance may be provided throughout the activity or intermittently. 3-Partial/Moderate Assistance-helper does LESS THAN HALF the effort. [place] lifts, holds or supports trunk or limbs, but provides less than half the effort. 2-Substantial/Maximal Assistance-helper does MORE THAN HALF the effort. [place] lifts or holds trunk or limbs and provides more than half the effort. 5-Briuswrtm-uanics does ALL the effort. Patient does none of the effort to complete the activity. Or, the assistance of 2 or more helpers is required for the patient to complete the activity. If activity was not attempted, code reason: 7-Patient Refused. 9-Not Applicable-not attempted and the patient did not perform the activity before the current illness, exacerbation or injury. 10-Not Attempted due to Environmental Limitations-(lack of equipment, weather restraints, etc.). 88-Not Attempted due to Medical Conditions or Safety Concerns. Roll Left to Right (QC): 6 Sit to Lying (QC): 6 Sit to Stand (QC): 6 Chair/Wwy-mi-Vpsvu Xfer(QC): 6 Car Transfer (QC): 6 Gait Training Does the Patient Walk?: Yes Distance: 150' x2 Walk 10 feet (QC): 6 Walk 50 ft with 2 Turns(QC): 6 Walk 150 ft (QC): 5 Walking 10ft/uneven surface-QC: 6 Gait Persons Needed: 1 Gait Assistive Device: FWW Wheelchair Training Does the Pt Use a Wheelchair?: No Wheel 50 ft with 2 turns (QC): 9 Wheel 150 ft (QC): 9 Type of Wheelchair: N/A Stair Training Stair Training: Handrails/: 2 handrails #of Steps: 8 1 Step (curb) (QC): 5 4 Steps (QC): 5 12 Steps (QC): 88 Stairs: Pattern: Step to Balance Picking up an Object (QC): 5 ADL-Treatment Eating (QC): 6 (per pt.) Oral Hygiene (QC): 7 Shower/Bathe Self (QC): 4 (SBA in shower with balance.) Upper Body Dressing (QC): 3 (Min assist overall. Pt. able to doff shirt, but required assist to don.) Lower Body Dressing (QC): 3 (Mod assist. OT donned shorts over feet while pt. in bed at bed level. Pt. able to pull up over hips.) On/Off Footwear (QC): 3 (Mod assist. Pt. able to don slipper socks with min assist, but required assistance to doff due to positioning and fatigued after ambulating to shower.) Toileting Hygiene (QC): 3 (min assist for thoroughness) Toilet Transfer (QC): 5 Assessment/Plan Assessment and Plan Assess & Plan/Chief Complaint Assessment: Myopathy s/p cardiogenic shock Pulmonary Hypertension with Mitral Regurgitation Heart Failure due to Afib RVR Hypokalemia h/o Acute on chronic respiratory failure Recent Pneumonia Resolved right lower extremity cellulitis Recent Acute kidney injury Anasarca Atrial fibrillation w/RVR now much improved on Amiodarone Recent COVID Central line required due to critical illness Coagulopathy due to Eliquis and acute renal failure Chronic hypoxia supplemental oxygen required since last admit Plan: Intense therapy Dr Uribe consult Rash management 06/07/2022: Monitor closely Rash treatment 06/08/2022: Wean O2 Monitor closely 06/09/2022: NICOLLE wraps legs Monitor O2 sat 06/10/2022: Wean O2 06/11/2022: Monitor edema Wean O2 06/12/2022: Monitor closely 06/13/2022: Monitor dyspnea episodes Updated Dr Uribe Check labs in am Concern about DC Wed with dyspnea updated team on likely delay of DC (1) Acute on chronic HFrEF (heart failure with reduced ejection fraction) (2) Persistent atrial fibrillation (3) Cardiomyopathy GISELLA KENNEDY DO Jun 13, 2022 06:29
[2022-06-13 07:31] VITALS: BP 125/63
[2022-06-13] MEDS: LACTOBACILLUS ACIDOPHILUS (PROBIOTIC) CAPSULE PO SCH (07:52)
[2022-06-13] MEDS: AMIODARONE 200 MG (CORDARONE) TAB PO SCH ×2 (07:52→20:33)
[2022-06-13] MEDS: MAGNESIUM OXIDE (MAG-OX)400 MG TAB PO SCH ×2 (07:52→20:33)
[2022-06-13] MEDS: THIAMINE 100 MG (VITAMIN B-1) TAB PO SCH (07:52)
[2022-06-13] MEDS: FOLIC ACID 1 MG TAB PO SCH (07:52)
[2022-06-13] MEDS: FAMOTIDINE 20 MG (PEPCID) TABLET PO SCH ×2 (07:52→20:33)
[2022-06-13] MEDS: APIXABAN 5 MG (ELIQUIS) TABLET PO SCH ×2 (07:52→20:33)
[2022-06-13] MEDS: BUMETANIDE 1 MG (BUMEX) TAB PO SCH (07:52)
[2022-06-13] MEDS: MICONAZOLE 2% POWDER (DESENEX AF) 90 GM TOP SCH ×2 (07:54→20:34)
[2022-06-13] MEDS: DOCUSATE SODIUM 100 MG (COLACE) CAP PO SCH ×2 (07:54→20:36)
[2022-06-13] MEDS: polyethylene glycoL POWDER 17 GM (MIRALAX) PACK PO SCH (07:54)
[2022-06-13] MEDS: SENNOSIDES 8.6 MG (SENOKOT) TAB PO SCH ×2 (07:54→20:37)
[2022-06-13] MEDS: MICONAZOLE NITRATE 2% CRM 30 GM TP SCH ×2 (07:55→20:37)
[2022-06-13] MEDS: NYSTATIN CREAM (MYCOSTATIN) 30 GM TUBE TP PRN (07:55)
--- NOTE | 2022-06-13 08:18 | Cardiology Progress Note ---
Subjective Date Seen by Provider: Jun 13, 2022 Time Seen by Provider: 08:16 Subjective/Events-last exam Patient is laying in bed, denies any chest pain, states dyspnea is improving. Objective-Cardiology Exam Last Set of Vital Signs Vital Signs 06/13/22 07:31 Temp 36.3 Pulse 61 Resp 18 B/P (MAP) 125/63 (83) Pulse Ox 98 O2 Delivery Nasal Cannula O2 Flow Rate 2.00 I&O Intake and Output 06/13/22 00:00 Intake Total 1220 ml Output Total 1250 ml Balance -30 ml Intake Oral 1220 ml Output Urine Total 1250 ml # Bowel Movements 1 General: Alert, Oriented X3 HEENT: Atraumatic Neck: Supple Lungs: Clear to Auscultation Heart: Normal S1, Normal S2, Other (irregularly irregular) Abdomen: Normal Bowel Sounds, Soft Extremities: No Clubbing, Other (Peripheral edema) Skin: No Rashes, No Significant Lesion Neuro: Normal Speech, Cranial Nerves 3-12 NL Psych/Mental Status: Mental Status NL, Mood NL A/P-Cardiology Admission Diagnosis Critical illness myopathy PAF CHF HTN Assessment/Plan History of Right leg cellulitis/fasciitis with sepsis, hospitalization ealier this month, was transferred to [facility]. Status post pneumonia, received Rocephin at [facility], finished full antibiotic dose and reported improvement. Generalized debility/weakness, critical illness myopathy, improving, continue PT/OT Paroxysmal atrial fibrillation, History of paroxysmal atrial fibrillation, Status post KERRY and electrical cardioversion on May 17, 2022, returned to atrial fibrillation during the hospitalization and then he was transferred to [facility] Intolerant to [place]. Currently on Amiodarone orally, continue to monitor. EKG showing rate controlled afib. Peripheral edema, anasarca, having significant edema. Was on Bumex and metolazone at [facility] Bumex was restarted, currently on 1 mg daily Received Zaroxolyn 2.5 mg x 1 dose yesterday [id number] score of 2, maintained on Eliquis. History of Thrombocytopenia, patient had hematuria and GI bleed. Currently on Eliquis, continue to monitor. Congestive heart failure, acute left ventricular systolic dysfunction 2D echo was done on May 14, 2022 showing dilated left ventricle with ejection fraction 25 to 30%, diffuse hypokinesia, grade 2 diastolic dysfunction, biatrial enlargement, moderate mitral regurgitation, PA pressure 40 to 45 mmHg Probably nonischemic cardiomyopathy, last stress test was done in May 2020 showing no significant ischemia or infarction Probably heart failure secondary to tachycardia Hypertension, controlled, continue to monitor. Acute renal insufficiency, slight deterioration in renal function, continue to monitor History of syncope and fall from a ladder with subarachnoid hemorrhage in May 2020. Treated at . Stress test done in May 2020 showing no significant ischemia or infarction, at that time his echo was normal. Supervisory-Addendum Brief Supervisory Addendum Participated in pt care: history, MDM, physical Personally performed: exam, history, MDM Care discussed with: ANNA Results interpretation: Verified all documentation Notes: Patient was seen and evaluated with Geri, examination performed, management plan was discussed, agree with the current scribed note, I made few changes to the note using Italic font Patient was seen at bedside laying down comfortably, was having some dyspnea last night, improved after increasing oxygen Received additional dose of Zaroxolyn 2.5 mg on top of the daily Bumex dose Continue with diuresis and continue to monitor renal function closely GERI KESSLER Jun 13, 2022 08:18 AUDELIA BEARD MD Jun 13, 2022 08:56
--- NOTE | 2022-06-13 10:35 | Occupational Ther Daily Note ---
OT Current Status-Daily Note Subjective Pt laying in bed upon arrival. Pt stated that they raised him back up to 2 L of O2 last night. Appearance Pt left sitting in recliner with all needs met. Mental Status/Objective Patient Orientation: Person, Place, Situation Acute change in mental status: 0 Inattention: 0 Disorganized thinkin Altered level of consciousness: 0 ADL-Treatment Therapy Code Descriptions/Definitions Functional [place] Measure: 0=Not Assessed/NA 4=Minimal Assistance 1=Total Assistance 5=Supervision or Setup 2=Maximal Assistance 6=Modified [place] 3=Moderate Assistance 7=Complete IndependenceSCALE: Activities may be completed with or without assistive devices. 1-Duekkwxdcu-hgprwuo completes the activity by him/herself with no assistance from a helper. 5-Set-up or Clean-up Assistance-helper sets up or cleans up; patient completes activity. [place] assists only prior to or following the activity. 4-Supervision or Touching Assistance-helper provides verbal cues and/or touching/steadying and/or contact guard assistance as patient completes activity. Assistance may be provided throughout the activity or intermittently. 3-Partial/Moderate Assistance-helper does LESS THAN HALF the effort. [place] lifts, holds or supports trunk or limbs, but provides less than half the effort. 2-Substantial/Maximal Assistance-helper does MORE THAN HALF the effort. [place] lifts or holds trunk or limbs and provides more than half the effort. 1-Dzbgcsafd-gkpjld does ALL the effort. Patient does none of the effort to complete the activity. Or, the assistance of 2 or more helpers is required for the patient to complete the activity. If activity was not attempted, code reason: 7-Patient Refused. 9-Not Applicable-not attempted and the patient did not perform the activity before the current illness, exacerbation or injury. 10-Not Attempted due to Environmental Limitations-(lack of equipment, weather restraints, etc.). 88-Not Attempted due to Medical Conditions or Safety Concerns. Eating (QC): 6 Oral Hygiene (QC): 6 Upper Body Dressing (QC): 6 Lower Body Dressing (QC): 6 On/Off Footwear: 6 Toileting Hygiene (QC): 4 Toilet Transfer (QC): 3 Pt shows labored breathing with all activity and needs cues for pursed lip breathing. O2 stats ranged from 85-93% with functional activity and rest breaks. Pt donned LE clothing and socks with AE seated on EOB. Pt shows good knowledge for using AE. Sit<>stand transfers from bed and chairs: SBA. Sit<>stand transf ers from toilet: Min assist. Pt stood at sink to perform grooming tasks (~8 min). Questions and concerns were answered regarding going home, showering, community outings, and oxygen management. Pt feels confident and ready to go home. 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 Pt practiced retrieving weights (5lb, 3lb, and 2lb) and transporting them, with bilateral UEs, to lower shelf x20. Pt required cues for ensuring balance is maintained and for improved body mechanics. All functional activities performed today, was to assist pt in self- awareness to go back to work, endurance, dynamic standing/gait balance, strengthening, and coordination. Pt made a comment about how he doesn't know if he will be able to return to work after doing this activity, due to his work requirements being much harder than this activity. Education OT Patient Education: Correct positioning, Energy conservation, Modified ADL techniques, Progress toward Goal/Update tx plan, Purpose of tx/functional activities, Reviewed precautions, Rehab process, Safety issues, Transfer techniques, Use of adapted equipment Teaching Recipient: Patient Teaching Methods: Demonstration, Discussion Response to Teaching: Verbalize Understanding, Return Demonstration OT Short Term Goals Short Term Goals Time Frame: Jun 14, 2022 Shower/bathe self: 4 Lower body dressin Putting on/taking off footwear: 4 OT Submersible Pilot Goals Submersible Pilot Goals Time Frame: Jun 30, 2022 Acute change in mental status: 0 Inattention: 0 Disorganized thinkin Altered level of consciousness: 0 Eating (QC): 6 (met) Oral Hygiene (QC): 6 (met) Toileting Hygiene (QC): 6 (not met) Shower/Bathe Self (QC): 6 (not met: SBA) Upper Body Dressing (QC): 6 (met) Lower Body Dressing (QC): 6 (met) On/Off Footwear (QC): 6 (met) Additional Goals: 1-Demonstrate ADL Tasks, 2-Verbalize Understanding, 3- ImproveStrength/[place] 1=Demonstrate adherence to instructed precautions during ADL tasks. 2=Patient will verbalize/demonstrate understanding of assistive devices/modifications for ADL. 3=Patient will improve strength/tolerance for activity to enable patient to perform ADL's. OT Education/Plan Problem List/Assessment Assessment: Decreased Activ Tolerance, Decreased Safety Aware, Decreased UE Strength, Edema, Impaired Coordination, Impaired Funct Balance, Impaired I ADL's, Impaired Self-Care Skills Discharge Recommendations Plan/Recommendations: Continue POC Therapy Discharge Recommendati: Bath Aide, Homemaker Support, Home & Family Equpiment Recommendations-D/C: Bath Chair, Sock Aide Treatment Plan/Plan of Care Treatment,Training & Education: Yes Patient would benefit from OT for education, treatment and training to promote independence in ADL's, mobility, safety and/or upper extremity function for ADL's. Plan of Care: ADL Retraining, Functional Mobility, Group Exercise/Act as Ind, UE Funct Exercise/Act Treatment Duration: Jun 30, 2022 Frequency: At least 5 of 7 days/Wk (IRF) Estimated Hrs Per Day: 1.5 hours per day Agreement: Yes Rehab Potential: Good Time/GCodes Start Time: 09:00 Stop Time: 10:30 Total Time Billed (hr/min): 90 Billed Treatment Time 1 visit ADL x4 (60 min) FA (15 min) EX (15 min) Rochelle Wesley OT Jun 13, 2022 10:35
--- NOTE | 2022-06-13 10:55 | IRF PAI BIMS ---
BIMS BIMS IRF KEELY BIMS: IRF KEELY BIMS Response (Comments) Value Expression of Ideas and Wants (Verbal/Non Verbal) Without Difficulty 3 Understanding Verbal Content Understands 3 Should Brief Interview for Mental Status be Conducted Yes Repitition of Three Words Three (3 points) 3 What year is it right now? Correct (3 points) 0 What month is it right now? Accurate within 5 days (2 points) 0 What week is it now? Correct (1 point) 0 Recalls Socks Yes, No Cue Required (2 points) 2 Recalls Blue Yes, No Cue Required (2 points) 2 Recalls Bed Yes, No Cue Required 2 Total 15 Brief Interview/Mental Status: No Notes: Rochelle Wesley OT Jun 13, 2022 10:55
--- NOTE | 2022-06-13 12:25 | Physical Therapy Daily Note ---
PT Daily Note-Current Subjective Pt sitting in recliner upon arrival. Pt agrees to PT but reports fatigued and does not want to do much as pt d/c tomorrow. Pain Location: No Pain Reported Section J - Health Conditions 1. Rarely or not at all 2. Occasionally 3. Frequently 4. Almost constantly 8. Unable to answer Pain Effect on Sleep: 1 Pain Interference with Therapy: 1 Pain Interference w/Day-to-Day: 1 Mental Status Patient Orientation: Person, Place, Time, Situation Attachments: Oxygen Transfers SCALE: Activities may be completed with or without assistive devices. 2-Ddpaithkwi-pceftrm completes the activity by him/herself with no assistance from a helper. 5-Set-up or Clean-up Assistance-helper sets up or cleans up; patient completes activity. [place] assists only prior to or following the activity. 4-Supervision or Touching Assistance-helper provides verbal cues and/or touching/steadying and/or contact guard assistance as patient completes activity. Assistance may be provided throughout the activity or intermittently. 3-Partial/Moderate Assistance-helper does LESS THAN HALF the effort. [place] lifts, holds or supports trunk or limbs, but provides less than half the effort. 2-Substantial/Maximal Assistance-helper does MORE THAN HALF the effort. [place] lifts or holds trunk or limbs and provides more than half the effort. 5-Qroasatpr-obnjdj does ALL the effort. Patient does none of the effort to complete the activity. Or, the assistance of 2 or more helpers is required for the patient to complete the activity. If activity was not attempted, code reason: 7-Patient Refused. 9-Not Applicable-not attempted and the patient did not perform the activity before the current illness, exacerbation or injury. 10-Not Attempted due to Environmental Limitations-(lack of equipment, weather restraints, etc.). 88-Not Attempted due to Medical Conditions or Safety Concerns. Sit to Stand (QC): 6 Toilet Transfer (QC): 5 Weight Bearing Full Weight Bearing Full Weight Bearing Gait Training Does the Patient Walk?: Yes Distance: 500', 150' Walk 10 feet (QC): 5 Walk 50 ft with 2 Turns(QC): 5 Walk 150 ft (QC): 5 Gait Assistive Device: FWW Wheelchair Training Does the Pt Use a Wheelchair?: No Stair Training Stair Training: Handrails/: 2 handrails #of Steps: 12 1 Step (curb) (QC): 5 4 Steps (QC): 5 12 Steps (QC): 5 Stairs: Pattern: Step to Treatments Since Pt QC scored yesterday, pt only repeated stairs as he felt he could improve on those as he was more fatigued yesterday. Pt amb. in hallway, completes stairs, reviews and completes Supine & Seated Ex. Pt returns to room to use BR ans returns to recliner to rest at end of tx. All needs met, call light in hand. Assessment Current Status: Good Progress Pt still fatigues and needs occasional RB for fatigue. PT Prison Goals Drupal Architect Goals PT Drupal Architect Goals Time Frame: Jun 24, 2022 Roll Left & Right (QC): 6 Sit to Lying (QC): 6 Lying-Sitting on Side/Bed(QC): 6 Sit to Stand (QC): 6 Chair/Nyj-fs-Mkkgm Xfer(QC): 6 Toilet Transfer (QC): 6 Car Transfer (QC): 6 Does the Patient Walk: Yes Walk 10 feet (QC): 6 Walk 50ft with 2 Turns (QC): 6 Walk 150 ft (QC): 6 Walking 10ft on Uneven Surface: 6 1 Step (curb) (QC): 4 4 Steps (QC): 4 12 Steps (QC): 4 Picking up an Object (QC): 6 Does the Pt use WC or Scooter?: No Wheel 50 feet with 2 turns (QC: 9 Wheel 150 feet: 9 PT Plan Problem List Problem List: Activity Tolerance Treatment/Plan Treatment Plan: Continue Plan of Care Treatment Plan: Bed Mobility, Concurrent Therapy, Education, Functional Activity [place], Functional Strength, Group Therapy, Gait, Safety, Therapeutic Exercise, Transfers Treatment Duration: Jun 24, 2022 Frequency: At least 5 of 7 days/Wk (IRF) Estimated Hrs Per Day: 1.5 hours per day Patient and/or Family Agrees t: Yes Safety Risks/Education Patient Education: Steps, Issued Written HEP Teaching Recipient: Patient Teaching Methods: Discussion Response to Teaching: Verbalize Understanding Time/GCodes Time In: 1045 Time Out: 1215 Total Billed Treatment Time: 90 Total Billed Treatment 1, GT x2 (30m), EX x2 (30m) & FA x2 (30m) LAURA MARIA FISCAL CLERK Jun 13, 2022 12:25
[2022-06-13] MEDS ORDERED: ASPI-1238 PO (12:45)
[2022-06-13] MEDS ORDERED: POTA-51 PO (12:45)
[2022-06-13] MEDS ORDERED: FURO40TA4 PO (12:45)
[2022-06-13] MEDS ORDERED: RIVA20TA PO (12:45)
[2022-06-13] MEDS ORDERED: DILT120C85 PO (12:45)
[2022-06-13] MEDS ORDERED: FUROSEMIDE 40 MG/4 ML INJ (LASIX) IVP NR (13:30)
[2022-06-13 19:30] VITALS: BP 102/71
[2022-06-14 06:15] LABS: POTASSIUM 3.4 MMOL/L (3.6-5.0)
[2022-06-14 06:16] LABS: CALCIUM 8.6 MG/DL (8.5-10.1)
[2022-06-14 06:21] LABS: CREATININE SERUM 1.44 MG/DL (0.60-1.30)
[2022-06-14 06:23] LABS: MAGNESIUM 2.1 MG/DL (1.6-2.4)
--- NOTE | 2022-06-14 06:29 | PM&R Progress Note ---
Subjective HPI/CC On Admission Date Seen by Provider: Jun 14, 2022 Time Seen by Provider: 08:30 Subjective/Events-last exam 06/14/2022: Discharge is delayed due to respiratory status Patient is not pleased discharge was held We will attempt to discharge tomorrow 06/13/2022: Pt had an episode of dyspnea Back on 2L Updated Dr. Uribe Extra doses of Roxilin was given Very complicated situation 06/12/2022: Patient doing really well Lower legs are much improved Leg wrappings are helping No major concerns 06/11/2022: Doing well Improved status No pain Improved dyspnea Less edema 06/10/2022: Patient doing well NICOLLE wraps have really helped his leg edema No pain Eating well Weaning off O2 06/09/2022: Dramatically improved No pain BM+ Edema improved with wraps 06/08/2022: No major issues Weaning O2 BP improved after med changes Appreciate Dr Uribe 06/07/2022: Patient doing well overall Frustrated he is still wearing O2 No pain Rash appears improved Reviewed meds Dr Uribe evaluating his cardiac meds and BP meds Review of Systems General: Fatigue, Malaise Pulmonary: Dyspnea Objective Exam Vital Signs Vital Signs Date Time Temp Pulse Resp B/P (MAP) Pulse Ox O2 Delivery O2 Flow Rate FiO2 06/14/22 20:50 Nasal Cannula 2.00 06/14/22 20:50 36.1 57 22 99/70 (80) 100 Capillary Refill : General Appearance: No Apparent Distress, WD/WN, Chronically ill HEENT: PERRL/EOMI, Normal ENT Inspection, Pharynx Normal Neck: Full Range of Motion, Normal Inspection, Non Tender, Supple, Carotid Bruit Respiratory: Chest Non Tender, Lungs Clear, Normal Breath Sounds, No Accessory Muscle Use, No Respiratory Distress Cardiovascular: No Edema, No Gallop, No JVD, No Murmur, Normal Peripheral Pulses, Irregularly Irregular Gastrointestinal: Normal Bowel Sounds, No Organomegaly, No Pulsatile Mass, Non Tender, Soft Back: Normal Inspection, No CVA Tenderness, No Vertebral Tenderness Extremity: Normal Capillary Refill, Normal Inspection, Normal Range of Motion, Non Tender, No Calf Tenderness, No Pedal Edema Neurologic/Psychiatric: Alert, Oriented x3, Normal Mood/Affect, appraiser oil and water II-XII Norm as Tested, Abnormal Gait, Depressed Affect, Motor Weakness Skin: Normal Color, Warm/Dry Lymphatic: No Adenopathy Results/Procedures Lab Laboratory Tests 06/14/22 05:40 Patient resulted labs reviewed. FIM Transfers Therapy Code Descriptions/Definitions Functional [place] Measure: 0=Not Assessed/NA 4=Minimal Assistance 1=Total Assistance 5=Supervision or Setup 2=Maximal Assistance 6=Modified [place] 3=Moderate Assistance 7=Complete IndependenceSCALE: Activities may be completed with or without assistive devices. 3-Owlzrpnvjk-cfmglzz completes the activity by him/herself with no assistance from a helper. 5-Set-up or Clean-up Assistance-helper sets up or cleans up; patient completes activity. [place] assists only prior to or following the activity. 4-Supervision or Touching Assistance-helper provides verbal cues and/or touching/steadying and/or contact guard assistance as patient completes activity. Assistance may be provided throughout the activity or intermittently. 3-Partial/Moderate Assistance-helper does LESS THAN HALF the effort. [place] lifts, holds or supports trunk or limbs, but provides less than half the effort. 2-Substantial/Maximal Assistance-helper does MORE THAN HALF the effort. [place] lifts or holds trunk or limbs and provides more than half the effort. 8-Uyjkovlgt-oukzyt does ALL the effort. Patient does none of the effort to complete the activity. Or, the assistance of 2 or more helpers is required for the patient to complete the activity. If activity was not attempted, code reason: 7-Patient Refused. 9-Not Applicable-not attempted and the patient did not perform the activity before the current illness, exacerbation or injury. 10-Not Attempted due to Environmental Limitations-(lack of equipment, weather restraints, etc.). 88-Not Attempted due to Medical Conditions or Safety Concerns. Roll Left to Right (QC): 6 Sit to Lying (QC): 6 Sit to Stand (QC): 6 Chair/Oky-sx-[place] Xfer(QC): 6 Car Transfer (QC): 6 Gait Training Does the Patient Walk?: Yes Distance: 500', 150' Walk 10 feet (QC): 5 Walk 50 ft with 2 Turns(QC): 5 Walk 150 ft (QC): 5 Walking 10ft/uneven surface-QC: 6 Gait Persons Needed: 1 Gait Assistive Device: FWW Wheelchair Training Does the Pt Use a Wheelchair?: No Wheel 50 ft with 2 turns (QC): 9 Wheel 150 ft (QC): 9 Type of Wheelchair: N/A Stair Training Stair Training: Handrails/: 2 handrails #of Steps: 12 1 Step (curb) (QC): 5 4 Steps (QC): 5 12 Steps (QC): 5 Stairs: Pattern: Step to Balance Picking up an Object (QC): 5 ADL-Treatment Eating (QC): 6 Oral Hygiene (QC): 6 Shower/Bathe Self (QC): 4 (SBA in shower with balance.) Upper Body Dressing (QC): 6 Lower Body Dressing (QC): 6 On/Off Footwear (QC): 6 Toileting Hygiene (QC): 4 Toilet Transfer (QC): 3 Assessment/Plan Assessment and Plan Assess & Plan/Chief Complaint Assessment: Myopathy s/p cardiogenic shock Pulmonary Hypertension with Mitral Regurgitation Heart Failure due to Afib RVR Hypokalemia h/o Acute on chronic respiratory failure Recent Pneumonia Resolved right lower extremity cellulitis Recent Acute kidney injury Anasarca Atrial fibrillation w/RVR now much improved on Amiodarone Recent COVID Central line required due to critical illness Coagulopathy due to Eliquis and acute renal failure Chronic hypoxia supplemental oxygen required since last admit Plan: Intense therapy Dr Uribe consult Rash management 06/07/2022: Monitor closely Rash treatment 06/08/2022: Wean O2 Monitor closely 06/09/2022: NICOLLE wraps legs Monitor O2 sat 06/10/2022: Wean O2 06/11/2022: Monitor edema Wean O2 06/12/2022: Monitor closely 06/13/2022: Monitor dyspnea episodes Updated Dr Uribe Check labs in am Concern about DC Wed with dyspnea updated team on likely delay of DC 06/14/2022: Hold discharge due to respiratory status (1) Acute on chronic HFrEF (heart failure with reduced ejection fraction) (2) Persistent atrial fibrillation (3) Cardiomyopathy GISELLA KENNEDY DO Jun 14, 2022 06:29
[2022-06-14 07:24] VITALS: BP 120/66
[2022-06-14] MEDS: FAMOTIDINE 20 MG (PEPCID) TABLET PO SCH ×2 (08:21→20:46)
[2022-06-14] MEDS: LACTOBACILLUS ACIDOPHILUS (PROBIOTIC) CAPSULE PO SCH (08:21)
[2022-06-14] MEDS: APIXABAN 5 MG (ELIQUIS) TABLET PO SCH ×2 (08:21→20:46)
[2022-06-14] MEDS: AMIODARONE 200 MG (CORDARONE) TAB PO SCH ×2 (08:21→20:46)
[2022-06-14] MEDS: BUMETANIDE 1 MG (BUMEX) TAB PO SCH (08:21)
[2022-06-14] MEDS: FOLIC ACID 1 MG TAB PO SCH (08:21)
[2022-06-14] MEDS: MAGNESIUM OXIDE (MAG-OX)400 MG TAB PO SCH ×2 (08:21→20:46)
[2022-06-14] MEDS: THIAMINE 100 MG (VITAMIN B-1) TAB PO SCH (08:21)
[2022-06-14] MEDS: MICONAZOLE 2% POWDER (DESENEX AF) 90 GM TOP SCH ×2 (08:22→20:46)
[2022-06-14] MEDS: MICONAZOLE NITRATE 2% CRM 30 GM TP SCH ×2 (08:22→21:07)
[2022-06-14] MEDS: NYSTATIN CREAM (MYCOSTATIN) 30 GM TUBE TP PRN ×2 (08:22→20:47)
[2022-06-14] MEDS: polyethylene glycoL POWDER 17 GM (MIRALAX) PACK PO SCH (08:23)
[2022-06-14] MEDS: SENNOSIDES 8.6 MG (SENOKOT) TAB PO SCH ×2 (08:23→21:07)
[2022-06-14] MEDS: DOCUSATE SODIUM 100 MG (COLACE) CAP PO SCH ×2 (08:23→21:06)
--- NOTE | 2022-06-14 08:59 | Cardiology Progress Note ---
Subjective Date Seen by Provider: Jun 14, 2022 Time Seen by Provider: 08:15 Subjective/Events-last exam Patient is sitting up in bed, no new complaints. States breathing continues to improve. Objective-Cardiology Exam Last Set of Vital Signs Vital Signs 06/14/22 06/14/22 07:24 09:00 Temp 36.4 Pulse 64 Resp 24 B/P (MAP) 120/66 (84) Pulse Ox 93 O2 Delivery Nasal Cannula O2 Flow Rate 2.00 I&O Intake and Output 06/14/22 00:00 Intake Total 940 ml Output Total 2300 ml Balance -1360 ml Intake Oral 940 ml Output Urine Total 2300 ml # Bowel Movements 1 General: Alert, Oriented X3 HEENT: Atraumatic Neck: Supple Lungs: Clear to Auscultation Heart: Normal S1, Normal S2, Other (irregularly irregular) Abdomen: Normal Bowel Sounds, Soft Extremities: No Clubbing, Other (Peripheral edema) Skin: No Rashes, No Significant Lesion Neuro: Normal Speech, Cranial Nerves 3-12 NL Psych/Mental Status: Mental Status NL, Mood NL Results Lab Laboratory Tests 06/14/22 05:40 A/P-Cardiology Admission Diagnosis Critical illness myopathy PAF CHF HTN Assessment/Plan History of Right leg cellulitis/fasciitis with sepsis, hospitalization ealier this month, was transferred to [facility]. Status post pneumonia, received Rocephin at [facility], finished full antibiotic dose and reported improvement. Generalized debility/weakness, critical illness myopathy, improving, continue PT/OT Paroxysmal atrial fibrillation, History of paroxysmal atrial fibrillation, Status post KERRY and electrical cardioversion on May 17, 2022, returned to atrial fibrillation during the hospitalization and then he was transferred to [facility] Intolerant to [place]. Currently on Amiodarone orally, continue to monitor. EKG showing rate controlled afib. Peripheral edema, anasarca, having significant edema. Was on Bumex and metolazone at [facility] Did not respond well to Bumex daily, continue to have worsening shortness of breath and edema. Responded well to Lasix IV. I will switch him to Lasix 40 mg daily and metolazone 2.5 mg twice a week and monitor tolerance and response [id number] score of 2, maintained on Eliquis. History of Thrombocytopenia, patient had hematuria and GI bleed. Currently on Eliquis, continue to monitor. Congestive heart failure, acute left ventricular systolic dysfunction 2D echo was done on May 14, 2022 showing dilated left ventricle with ejection fraction 25 to 30%, diffuse hypokinesia, grade 2 diastolic dysfunction, biatrial enlargement, moderate mitral regurgitation, PA pressure 40 to 45 mmHg Probably nonischemic cardiomyopathy, last stress test was done in May 2020 showing no significant ischemia or infarction Probably heart failure secondary to tachycardia Hypertension, controlled, continue to monitor. Renal insufficiency, continue to monitor renal function History of syncope and fall from a ladder with subarachnoid hemorrhage in May 2020. Treated at . Stress test done in May 2020 showing no significant ischemia or infarction, at that time his echo was normal. Supervisory-Addendum Brief Supervisory Addendum Participated in pt care: history, MDM, physical Personally performed: exam, history, MDM Care discussed with: ANNA Results interpretation: Verified all documentation Notes: Patient was seen and evaluated with Geri, examination performed, management plan was discussed, agree with the current scribed note, I made few changes to the note using Italic font Patient was seen at bedside, laying down comfortably, denied any chest pain We will continue with the plan as described above Starting Lasix and metolazone and evaluate tolerance and response GERI KESSLER Jun 14, 2022 08:59 AUDELIA BEARD MD Jun 14, 2022 12:56
--- NOTE | 2022-06-14 09:48 | Occupational Ther Daily Note ---
OT Current Status-Daily Note Subjective Pt upset about having his discharged moved from today to Sunday. Requires encouragement to participate Mental Status/Objective Acute change in mental status: 0 Inattention: 0 Disorganized thinkin Altered level of consciousness: 0 ADL-Treatment Therapy Code Descriptions/Definitions Functional Mcleod Measure: 0=Not Assessed/NA 4=Minimal Assistance 1=Total Assistance 5=Supervision or Setup 2=Maximal Assistance 6=Modified Mcleod 3=Moderate Assistance 7=Complete IndependenceSCALE: Activities may be completed with or without assistive devices. 5-Twedomqxpj-optlpvt completes the activity by him/herself with no assistance from a helper. 5-Set-up or Clean-up Assistance-helper sets up or cleans up; patient completes activity. [place] assists only prior to or following the activity. 4-Supervision or Touching Assistance-helper provides verbal cues and/or touching/steadying and/or contact guard assistance as patient completes activity. Assistance may be provided throughout the activity or intermittently. 3-Partial/Moderate Assistance-helper does LESS THAN HALF the effort. [place] lifts, holds or supports trunk or limbs, but provides less than half the effort. 2-Substantial/Maximal Assistance-helper does MORE THAN HALF the effort. [place] lifts or holds trunk or limbs and provides more than half the effort. 7-Wfyzebtxf-eivrna does ALL the effort. Patient does none of the effort to complete the activity. Or, the assistance of 2 or more helpers is required for the patient to complete the activity. If activity was not attempted, code reason: 7-Patient Refused. 9-Not Applicable-not attempted and the patient did not perform the activity before the current illness, exacerbation or injury. 10-Not Attempted due to Environmental Limitations-(lack of equipment, weather restraints, etc.). 88-Not Attempted due to Medical Conditions or Safety Concerns. Eating (QC): 6 Oral Hygiene (QC): 6 Upper Body Dressing (QC): 6 Lower Body Dressing (QC): 6 Toileting Hygiene (QC): 6 Toilet Transfer (QC): 6 Pt laying in bed at OT arrival. He verbalizes frustration on not being able to discharge today. Therapeutic listening provided. Pt declines shower but agreeable to complete sponge bath at sink. He stood to wash upper body, [place] area, and buttocks. RN in to apply cream/powder to [place] area/buttocks post washing. SHELDON'yoel not addressed this date. Pt able to tolerate standing at sink for ~15 minutes on 2L O2. Pt continues to exhibit SOB, but oxygen remains >92%. He sat on EOB to don shorts, he did not require use of AE this date. Assist to don socks after legs were wrapped. Other Treatment Pt participated in UE exercises with 3# dumbbell. Min verbal/visual cues for correct technique and speed of movement. Pt often will hold his breath and requires cues for breathing techniques. LUE weaker than Right, fatigues much quicker. 2 sets, 12 reps each, all planes. Several rest breaks needed due to SOB, oxygen remains >90%. Education OT Patient Education: Correct positioning, Energy conservation, Exercise program, Progress toward Goal/Update tx plan, Purpose of tx/functional act ivities Teaching Recipient: Patient Teaching Methods: Discussion Response to Teaching: Verbalize Understanding OT Short Term Goals Short Term Goals Time Frame: Jun 14, 2022 Shower/bathe self: 4 Lower body dressin Putting on/taking off footwear: 4 OT Shelter Goals Shelter Goals Time Frame: Jun 30, 2022 Acute change in mental status: 0 Inattention: 0 Disorganized thinkin Altered level of consciousness: 0 Eating (QC): 6 (met) Oral Hygiene (QC): 6 (met) Toileting Hygiene (QC): 6 (not met) Shower/Bathe Self (QC): 6 (not met: SBA) Upper Body Dressing (QC): 6 (met) Lower Body Dressing (QC): 6 (met) On/Off Footwear (QC): 6 (met) Additional Goals: 1-Demonstrate ADL Tasks, 2-Verbalize Understanding, 3- ImproveStrength/Niya 1=Demonstrate adherence to instructed precautions during ADL tasks. 2=Patient will verbalize/demonstrate understanding of assistive devices/modifications for ADL. 3=Patient will improve strength/tolerance for activity to enable patient to perform ADL's. OT Education/Plan Problem List/Assessment Assessment: Decreased Activ Tolerance, Decreased UE Strength, Impaired I ADL's Discharge Recommendations Plan/Recommendations: Continue POC Treatment Plan/Plan of Care Treatment,Training & Education: Yes Patient would benefit from OT for education, treatment and training to promote independence in ADL's, mobility, safety and/or upper extremity function for ADL's. Plan of Care: ADL Retraining, Functional Mobility, Group Exercise/Act as Ind, UE Funct Exercise/Act Treatment Duration: Jun 30, 2022 Frequency: At least 5 of 7 days/Wk (IRF) Estimated Hrs Per Day: 1.5 hours per day Agreement: Yes Rehab Potential: Good Time/GCodes Start Time: 09:10 Stop Time: 10:40 Total Time Billed (hr/min): 90 Billed Treatment Time 1 visit ADL x3 (45 min) EX x2 (45 min) Rochelle Wesley OT Jun 14, 2022 09:48
--- NOTE | 2022-06-14 09:50 | Diagnostic Imaging Report ---
EXAMINATION: Chest, 1 view. HISTORY: Dyspnea. COMPARISON: 05/19/2022. FINDINGS: Stable enlargement of the cardiac silhouette. There are patchy interstitial and airspace opacities seen throughout both lungs. Trace left pleural effusion. No pneumothorax. The osseous structures are intact. IMPRESSION: Cardiomegaly with patchy interstitial and airspace opacities seen throughout the lungs. Findings can be seen with pneumonia or pulmonary edema. Dictated by: Dictated on workstation # [id number]
[2022-06-14 10:35] LABS: BASOPHILS # (AUTO) 0.1 10^3/uL (0.0-0.1); BASOPHILS % (AUTO) 1 % (0-10); EOSINOPHILS # (AUTO) 0.2 10^3/uL (0.0-0.3); EOSINOPHILS % (AUTO) 3 % (0-10); HEMATOCRIT 34 % (40-54); HEMOGLOBIN 10.5 g/dL (13.3-17.7); LYMPHOCYTES # (AUTO) 0.6 10^3/uL (1.0-4.0); LYMPHOCYTES % (AUTO) 8 % (12-44); MEAN CORPUSCULAR HEMOGLOBIN 29 pg (25-34); MEAN CORPUSCULAR HGB CONC 31 g/dL (32-36); MEAN CORPUSCULAR VOLUME 93 fL (80-99); MEAN PLATELET VOLUME 8.9 fL (9.0-12.2); MONOCYTES # (AUTO) 0.5 10^3/uL (0.0-1.0); MONOCYTES % (AUTO) 6 % (0-12); NEUTROPHILS # (AUTO) 6.9 10^3/uL (1.8-7.8); NEUTROPHILS % (AUTO) 83 % (42-75); PLATELET COUNT 192 10^3/uL (130-400); WHITE BLOOD COUNT 8.3 10^3/uL (4.3-11.0)
[2022-06-14] MEDS: FUROSEMIDE 40 MG (LASIX) TAB PO SCH (13:24)
--- NOTE | 2022-06-14 13:26 | Physical Therapy Daily Note ---
PT Daily Note-Current Subjective Pt sitting in recliner in room upon arrival. Pt reports disappointment as pt thought he was d/c today but will not due to concerns over lung sounds and difficulty breathing/SOA. Pain Location: No Pain Reported Section J - Health Conditions 1. Rarely or not at all 2. Occasionally 3. Frequently 4. Almost constantly 8. Unable to answer Pain Effect on Sleep: 1 Pain Interference with Therapy: 1 Pain Interference w/Day-to-Day: 1 Mental Status Patient Orientation: Person, Place, Time, Situation Attachments: Oxygen (2L) Transfers SCALE: Activities may be completed with or without assistive devices. 9-Zaufkrrdmm-rrnveqe completes the activity by him/herself with no assistance from a helper. 5-Set-up or Clean-up Assistance-helper sets up or cleans up; patient completes activity. [place] assists only prior to or following the activity. 4-Supervision or Touching Assistance-helper provides verbal cues and/or touching/steadying and/or contact guard assistance as patient completes activity. Assistance may be provided throughout the activity or intermittently. 3-Partial/Moderate Assistance-helper does LESS THAN HALF the effort. [place] lifts, holds or supports trunk or limbs, but provides less than half the effort. 2-Substantial/Maximal Assistance-helper does MORE THAN HALF the effort. [place] lifts or holds trunk or limbs and provides more than half the effort. 1-Rntpwzaut-gguheb does ALL the effort. Patient does none of the effort to complete the activity. Or, the assistance of 2 or more helpers is required for the patient to complete the activity. If activity was not attempted, code reason: 7-Patient Refused. 9-Not Applicable-not attempted and the patient did not perform the activity before the current illness, exacerbation or injury. 10-Not Attempted due to Environmental Limitations-(lack of equipment, weather restraints, etc.). 88-Not Attempted due to Medical Conditions or Safety Concerns. Sit to Stand (QC): 6 Toilet Transfer (QC): 6 Weight Bearing Full Weight Bearing Full Weight Bearing Gait Training Does the Patient Walk?: Yes Distance: 350' Walk 10 feet (QC): 6 Walk 50 ft with 2 Turns(QC): 5 Walk 150 ft (QC): 5 Gait Assistive Device: FWW Treatments Discussion over healthy eating, decreasing fluid makes movement easier as well as need to continue to work on Supine & Seated Ex and increase walking as pt's main limitation is decreased activity tolerance. Pt TF to standing and amb. in hallway. Pt returns to room to use BR and return to recliner to rest. All needs met, call light in hand. Assessment Current Status: Good Progress Pt needs VC for encouragement to continue working w/Therapy even though pt is disappointed about d/c. PT Care Home Goals Care Home Goals PT Award Clerk Goals Time Frame: Jun 24, 2022 Roll Left & Right (QC): 6 Sit to Lying (QC): 6 Lying-Sitting on Side/Bed(QC): 6 Sit to Stand (QC): 6 Chair/Qpy-vm-Jiiij Xfer(QC): 6 Toilet Transfer (QC): 6 Car Transfer (QC): 6 Does the Patient Walk: Yes Walk 10 feet (QC): 6 Walk 50ft with 2 Turns (QC): 6 Walk 150 ft (QC): 6 Walking 10ft on Uneven Surface: 6 1 Step (curb) (QC): 4 4 Steps (QC): 4 12 Steps (QC): 4 Picking up an Object (QC): 6 Does the Pt use WC or Scooter?: No Wheel 50 feet with 2 turns (QC: 9 Wheel 150 feet: 9 PT Plan Problem List Problem List: Activity Tolerance Treatment/Plan Treatment Plan: Continue Plan of Care Treatment Plan: Bed Mobility, Concurrent Therapy, Education, Functional Activity Niya, Functional Strength, Group Therapy, Gait, Safety, Therapeutic Exercise, Transfers Treatment Duration: Jun 24, 2022 Frequency: At least 5 of 7 days/Wk (IRF) Estimated Hrs Per Day: 1.5 hours per day Patient and/or Family Agrees t: Yes Safety Risks/Education Patient Education: Gait Training Teaching Recipient: Patient Teaching Methods: Discussion Response to Teaching: Verbalize Understanding Time/GCodes Time In: 1100 Time Out: 1200 Total Billed Treatment Time: 60 Total Billed Treatment 1, GT (20m) & FA x3 (40m) LAURA MARIA SUBSTANCE ABUSE RN Jun 14, 2022 13:26
--- NOTE | 2022-06-14 13:53 | Physical Therapy Progress Note ---
Therapy Progress Note Pt advised he did not want to do afternoon Therapy session (1300). "I feel good about where I am." TAPPER SUPERVISOR stated will come back to check on pt to see if pt would like to walk or complete any other Therapy. TAPPER SUPERVISOR checks back at 1345 and pt declines tx again. 1 visit, no tx rendered LAURA MARIA TAPPER SUPERVISOR Jun 14, 2022 13:53
[2022-06-14 20:50] VITALS: BP 99/70
[2022-06-15] MEDS ORDERED: FURO40TA4 PO (05:45)
[2022-06-15] MEDS ORDERED: METO2.5T PO (05:45)
[2022-06-15] MEDS ORDERED: CARV3.122 PO (05:45)
[2022-06-15] MEDS ORDERED: MGX400T PO (05:45)
[2022-06-15] MEDS ORDERED: THIA100T80 PO (05:45)
[2022-06-15] MEDS ORDERED: RIVA20TA PO (05:45)
[2022-06-15] MEDS ORDERED: FAMO20TA5 PO (05:45)
[2022-06-15] MEDS ORDERED: FOLI1TAB33 PO (05:45)
[2022-06-15] MEDS ORDERED: AMIO200T65 PO (05:45)
--- NOTE | 2022-06-15 05:47 | Discharge Summary ---
Diagnosis/Chief Complaint Date of Admission Jun 06, 2022 at 13:45 Date of Discharge Discharge Date: Jun 15, 2022 Discharge Diagnosis Assessment: Myopathy s/p cardiogenic shock Pulmonary Hypertension with Mitral Regurgitation Heart Failure due to Afib RVR Hypokalemia h/o Acute on chronic respiratory failure Recent Pneumonia Resolved right lower extremity cellulitis Recent Acute kidney injury Anasarca Atrial fibrillation w/RVR now much improved on Amiodarone Recent COVID Central line required due to critical illness Coagulopathy due to Eliquis and acute renal failure Chronic hypoxia supplemental oxygen required since last admit Plan: Intense therapy Dr Uribe consult Rash management 06/07/2022: Monitor closely Rash treatment 06/08/2022: Wean O2 Monitor closely 06/09/2022: NICOLLE wraps legs Monitor O2 sat 06/10/2022: Wean O2 06/11/2022: Monitor edema Wean O2 06/12/2022: Monitor closely 06/13/2022: Monitor dyspnea episodes Updated Dr Uribe Check labs in am Concern about DC Wed with dyspnea updated team on likely delay of DC 06/14/2022: Hold discharge due to respiratory status (1) Acute on chronic HFrEF (heart failure with reduced ejection fraction) (2) Persistent atrial fibrillation (3) Cardiomyopathy Discharge Summary Discharge Physical Examination Allergies: Coded Allergies: No Known Drug Allergies (Unverified , 06/04/20) Vitals & I&Os Vital Signs Date Time Temp Pulse Resp B/P (MAP) Pulse Ox O2 Delivery O2 Flow Rate FiO2 06/15/22 09:00 99 Nasal Cannula 2.00 06/15/22 07:21 35.9 57 18 121/75 (90) General Appearance: Alert, Oriented X3, Cooperative Respiratory: Clear to Auscultation Cardiovascular: Regular Rate Psych/Mental Status: Mental Status NL Hospital Course Was the Problem List Reviewed?: Yes Pt had an uneventful hospital course for 10 days after he was admitted from [place] for COPD, critical illness myopathy, and CHF. Cardiology was consulted. He was maintained anticoagulation. Lasix was initiated for diuresis. Pt was improved. Kidney function remained stable at 1.4. Overall he did very well. He will have home health. Pt will see me in clinic for follow up. Labs (last 24 hrs) Laboratory Tests 06/07/22 09:30: White Blood Count 9.0, Red Blood Count 3.81L, Hemoglobin 11.1L, Hematocrit 35L, Mean Corpuscular Volume 92, Mean Corpuscular Hemoglobin 29, Mean Corpuscular Hemoglobin Concent 32, Red Cell Distribution Width 18.6H, Platelet Count 214, Mean Platelet Volume 8.5L, Immature Granulocyte % (Auto) 1, Neutrophils (%) (Aut o) 79H, Lymphocytes (%) (Auto) 12, Monocytes (%) (Auto) 5, Eosinophils (%) (Auto) 3, Basophils (%) (Auto) 1, Neutrophils # (Auto) 7.1, Lymphocytes # (Auto) 1.1, Monocytes # (Auto) 0.5, Eosinophils # (Auto) 0.3, Basophils # (Auto) 0.1, Immature Granulocyte # (Auto) 0.1, Sodium Level 139, Potassium Level 3.8, Chloride Level 98, Carbon Dioxide Level 31, Anion Gap 10, Blood Urea Nitrogen 21H, Creatinine 1.37H, Estimat Glomerular Filtration Rate 56, BUN/Creatinine Ratio 15, Glucose Level 113H, Calcium Level 8.4L, Corrected Calcium 9.3, Total Bilirubin 0.9, Aspartate Amino Transf (AST/SGOT) 23, Alanine Aminotransferase (ALT/SGPT) 10, Alkaline Phosphatase 109, Total Protein 6.7, Albumin 2.9L 06/09/22 06:08: Sodium Level 139, Potassium Level 3.8, Chloride Level 99, Carbon Dioxide Level 28, Anion Gap 12, Blood Urea Nitrogen 20H, Creatinine 1.45H, Estimat Glomerular Filtration Rate 52, BUN/Creatinine Ratio 14, Glucose Level 104, Calcium Level 8.1L, Magnesium Level 2.2 06/12/22 06:04: White Blood Count 7.5, Red Blood Count 3.51L, Hemoglobin 9.9L, Hematocrit 32L, Mean Corpuscular Volume 92, Mean Corpuscular Hemoglobin 28, Mean Corpuscular Hemoglobin Concent 31L, Red Cell Distribution Width 18.7H, Platelet Count 170, Mean Platelet Volume 8.4L, Immature Granulocyte % (Auto) 0, Neutrophils (%) (Auto) 76H, Lymphocytes (%) (Auto) 13, Monocytes (%) (Auto) 7, Eosinophils (%) (Auto) 3, Basophils (%) (Auto) 1, Neutrophils # (Auto) 5.7, Lymphocytes # (Auto) 1.0, Monocytes # (Auto) 0.5, Eosinophils # (Auto) 0.2, Basophils # (Auto) 0.1, Immature Granulocyte # (Auto) 0.0, Sodium Level 136, Potassium Level 4.0, Chloride Level 96L, Carbon Dioxide Level 33H, Anion Gap 7, Blood Urea Nitrogen 21H, Creatinine 1.62H, Estimat Glomerular Filtration Rate 46, BUN/Creatinine Ratio 13, Glucose Level 101, Calcium Level 8.3L, Corrected Calcium 9.2, Total Bilirubin 1.1H, Aspartate Amino Transf (AST/SGOT) 17, Alanine Aminotransferase (ALT/SGPT) 8, Alkaline Phosphatase 109, Total Protein 7.1, Albumin 2.9L, Magnesium Level 2.3 06/14/22 05:40: White Blood Count 8.3, Red Blood Count 3.64L, Hemoglobin 10.5L, Hematocrit 34L, Mean Corpuscular Volume 93, Mean Corpuscular Hemoglobin 29, Mean Corpuscular Hemoglobin Concent 31L, Red Cell Distribution Width 18.9H, Platelet Count 192, Mean Platelet Volume 8.9L, Immature Granulocyte % (Auto) 1, Neutrophils (%) (Auto) 83H, Lymphocytes (%) (Auto) 8L, Monocytes (%) (Auto) 6, Eosinophils (%) (Auto) 3, Basophils (%) (Auto) 1, Neutrophils # (Auto) 6.9, Lymphocytes # (Auto) 0.6L, Monocytes # (Auto) 0.5, Eosinophils # (Auto) 0.2, Basophils # (Auto) 0.1, Immature Granulocyte # (Auto) 0.1, Sodium Level 140, Potassium Level 3.4L, Chloride Level 94L, Carbon Dioxide Level 32, Anion Gap 14, Blood Urea Nitrogen 21H, Creatinine 1.44H, Estimat Glomerular Filtration Rate 53, BUN/Creatinine Ratio 15, Glucose Level 109H, Calcium Level 8.6, Magnesium Level 2.1, Procalcitonin 0.08 Pending Labs Laboratory Tests 06/07/22 09:30: White Blood Count 9.0, Red Blood Count 3.81, Hemoglobin 11.1, Hematocrit 35, Mean Corpuscular Volume 92, Mean Corpuscular Hemoglobin 29, Mean Corpuscular Hemoglobin Concent 32, Red Cell Distribution Width 18.6, Platelet Count 214, Mean Platelet Volume 8.5, Immature Granulocyte % (Auto) 1, Neutrophils (%) (Auto) 79, Lymphocytes (%) (Auto) 12, Monocytes (%) (Auto) 5, Eosinophils (%) (Auto) 3, Basophils (%) (Auto) 1, Neutrophils # (Auto) 7.1, Lymphocytes # (Auto) 1.1, Monocytes # (Auto) 0.5, Eosinophils # (Auto) 0.3, Basophils # (Auto) 0.1, Immature Granulocyte # (Auto) 0.1, Sodium Level 139, Potassium Level 3.8, Chloride Level 98, Carbon Dioxide Level 31, Anion Gap 10, Blood Urea Nitrogen 21, Creatinine 1.37, Estimat Glomerular Filtration Rate 56, BUN/Creatinine Ratio 15, Glucose Level 113, Calcium Level 8.4, Corrected Calcium 9.3, Total Bilirubin 0.9, Aspartate Amino Transf (AST/SGOT) 23, Alanine Aminotransferase (ALT/SGPT) 10, Alkaline Phosphatase 109, Total Protein 6.7, Albumin 2.9 06/09/22 06:08: Sodium Level 139, Potassium Level 3.8, Chloride Level 99, Carbon Dioxide Level 28, Anion Gap 12, Blood Urea Nitrogen 20, Creatinine 1.45, Estimat Glomerular Filtration Rate 52, BUN/Creatinine Ratio 14, Glucose Level 104, Calcium Level 8.1, Magnesium Level 2.2 06/12/22 06:04: White Blood Count 7.5, Red Blood Count 3.51, Hemoglobin 9.9, Hematocrit 32, Mean Corpuscular Volume 92, Mean Corpuscular Hemoglobin 28, Mean Corpuscular Hemoglobin Concent 31, Red Cell Distribution Width 18.7, Platelet Count 170, Mean Platelet Volume 8.4, Immature Granulocyte % (Auto) 0, Neutrophils (%) (Auto) 76, Lymphocytes (%) (Auto) 13, Monocytes (%) (Auto) 7, Eosinophils (%) (Auto) 3, Basophils (%) (Auto) 1, Neutrophils # (Auto) 5.7, Lymphocytes # (Auto) 1.0, Monocytes # (Auto) 0.5, Eosinophils # (Auto) 0.2, Basophils # (Auto) 0.1, Immature Granulocyte # (Auto) 0.0, Sodium Level 136, Potassium Level 4.0, Chloride Level 96, Carbon Dioxide Level 33, Anion Gap 7, Blood Urea Nitrogen 21, Creatinine 1.62, Estimat Glomerular Filtration Rate 46, BUN/Creatinine Ratio 13, Glucose Level 101, Calcium Level 8.3, Corrected Calcium 9.2, Total Bilirubin 1.1, Aspartate Amino Transf (AST/SGOT) 17, Alanine Aminotransferase (ALT/SGPT) 8, Alkaline Phosphatase 109, Total Protein 7.1, Albumin 2.9, Magnesium Level 2.3 06/14/22 05:40: White Blood Count 8.3, Red Blood Count 3.64, Hemoglobin 10.5, Hematocrit 34, Mean Corpuscular Volume 93, Mean Corpuscular Hemoglobin 29, Mean Corpuscular Hemoglobin Concent 31, Red Cell Distribution Width 18.9, Platelet Count 192, Mean Platelet Volume 8.9, Immature Granulocyte % (Auto) 1, Neutrophils (%) (Auto) 83, Lymphocytes (%) (Auto) 8, Monocytes (%) (Auto) 6, Eosinophils (%) (Auto) 3, Basophils (%) (Auto) 1, Neutrophils # (Auto) 6.9, Lymphocytes # (Auto) 0.6, Monocytes # (Auto) 0.5, Eosinophils # (Auto) 0.2, Basophils # (Auto) 0.1, Immature Granulocyte # (Auto) 0.1, Sodium Level 140, Potassium Level 3.4, Chloride Level 94, Carbon Dioxide Level 32, Anion Gap 14, Blood Urea Nitrogen 21, Creatinine 1.44, Estimat Glomerular Filtration Rate 53, BUN/Creatinine Ratio 15, Glucose Level 109, Calcium Level 8.6, Magnesium Level 2.1, Procalcitonin 0.08 Discharge Home Medications: Active Scripts Active Vitamin B-1 (Thiamine HCl) 100 Mg Tablet 100 Mg PO DAILY Folic Acid 1 Mg Tablet 1 Mg PO DAILY Famotidine 20 Mg Tablet 20 Mg PO BID Magnesium Oxide 400 Mg (241.3 Mg Magnesium) Tablet 400 Mg PO BID Metolazone 2.5 Mg Tablet 2.5 Mg PO MOTH@0830 Furosemide 40 Mg Tablet 40 Mg PO DAILY Carvedilol 3.125 Mg Tablet 3.125 Mg PO BID Amiodarone HCl 200 Mg Tablet 200 Mg PO BID Xarelto (Rivaroxaban) 20 Mg Tablet 20 Mg PO 1700 Instructions to patient/family Please see electronic discharge instructions given to patient. Diagnosis/Problems Diagnosis/Problems (1) Acute on chronic HFrEF (heart failure with reduced ejection fraction) (2) Persistent atrial fibrillation (3) Cardiomyopathy GISELLA KENNEDY DO Jun 15, 2022 05:47
--- NOTE | 2022-06-15 05:47 | D/C HH Face to Face Order ---
D/C Face to Face Orders Reconcile Patient Problems Problems Reviewed?: Yes Instructions for Patient Via [facility], Patient Instructions/FollowUp: Dr Reynolds in 1 week Physician to follow Patient: Gail Discharge Diet for Home: No Restrictions Patient Problems: CHF Patient Data-Allergies,Ht & Wt Patient Allergies: Coded Allergies: No Known Drug Allergies (Unverified , 06/04/20) Home Health Need/Face to Face Date of Face to Face: Jun 15, 2022 Clinical Findings: Generalized weakness and fatigue, Instability, Muscle weakness I have seen Pt rzbw-yp-mold: Yes Discharged To: Home Diagnosis/Conditions: CHF Patient is Homebound due to: Muscle weakness Homebound Status Due to the above stated illness, injury or surgical procedure (medical condition or diagnosis) and associated clinical findings, the patient is homebound because of his/her inability to leave home except with aid of a supportive device and/or person AND leaving the home requires a considerable and taxing effort or is medically contraindicated. Pt req the following assistanc: [facility] Nursing Orders Home Health Services Order: Nursing Services, Copy Messenger-Evaluate & Treat, Physical Therapy-Evaluate & Treat Certify Stmt I certify that this patient is under my care and that I, a nurse practitioner or a physician; a preschool assistant working with me, had a face to face encounter that - meets the physician face to face encounter requirements with this patient as dated. GISELLA REYNOLDS DO Jun 15, 2022 05:47
[2022-06-15 07:21] VITALS: BP 121/75
--- NOTE | 2022-06-15 08:12 | Cardiology Progress Note ---
Subjective Date Seen by Provider: Jun 15, 2022 Time Seen by Provider: 08:10 Subjective/Events-last exam Patient is in bed, no new complaints. Denies any chest pain or increased dys pnea. Objective-Cardiology Exam Last Set of Vital Signs Vital Signs 06/15/22 07:21 Temp 35.9 Pulse 57 Resp 18 B/P (MAP) 121/75 (90) Pulse Ox 98 O2 Delivery Nasal Cannula O2 Flow Rate 2.00 I&O Intake and Output 06/15/22 00:00 Intake Total 2009 ml Output Total 2500 ml Balance -490 ml Intake Oral 2009 ml Output Urine Total 2500 ml # Voids 1 General: Alert, Oriented X3 HEENT: Atraumatic Neck: Supple Lungs: Clear to Auscultation Heart: Normal S1, Normal S2, Other (irregularly irregular) Abdomen: Normal Bowel Sounds, Soft Extremities: No Clubbing, Other (Peripheral edema) Skin: No Rashes, No Significant Lesion Neuro: Normal Speech, Cranial Nerves 3-12 NL Psych/Mental Status: Mental Status NL, Mood NL A/P-Cardiology Admission Diagnosis Critical illness myopathy PAF CHF HTN Assessment/Plan History of Right leg cellulitis/fasciitis with sepsis, hospitalization ealier this month, was transferred to [facility]. Status post pneumonia, received Rocephin at [facility], finished full antibiotic dose and reported improvement. Generalized debility/weakness, critical illness myopathy, improving, continue PT/OT Paroxysmal atrial fibrillation, History of paroxysmal atrial fibrillation, Status post KERRY and electrical cardioversion on May 17, 2022, returned to atrial fibrillation during the hospitalization and then he was transferred to [facility] Intolerant to [place]. Currently on Amiodarone orally, continue to monitor. EKG showing rate controlled afib. Peripheral edema, anasarca, having significant edema. Was on Bumex and metolazone at [facility] Did not respond well to Bumex daily, continue to have worsening shortness of breath and edema. Responded well to Lasix IV. Patient was started on Lasix 40 mg daily and metolazone 2.5 mg twice a week. Continue to monitor [id number] score of 2, maintained on Eliquis. History of Thrombocytopenia, patient had hematuria and GI bleed. Currently on Eliquis, continue to monitor. Congestive heart failure, acute left ventricular systolic dysfunction 2D echo was done on May 14, 2022 showing dilated left ventricle with eje ction fraction 25 to 30%, diffuse hypokinesia, grade 2 diastolic dysfunction, biatrial enlargement, moderate mitral regurgitation, PA pressure 40 to 45 mmHg Probably nonischemic cardiomyopathy, last stress test was done in May 2020 showing no significant ischemia or infarction Probably heart failure secondary to tachycardia Hypertension, controlled, continue to monitor. Renal insufficiency, continue to monitor renal function History of syncope and fall from a ladder with subarachnoid hemorrhage in May 2020. Treated at . Stress test done in May 2020 showing no significant ischemia or infarction, at that time his echo was normal. Supervisory-Addendum Brief Supervisory Addendum Participated in pt care: history, MDM, physical Personally performed: exam, history, MDM Care discussed with: ANNA Results interpretation: Verified all documentation Notes: Patient was seen and evaluated with Geri, examination performed, management plan was discussed, agree with the current scribed note, I made few changes to the note using Italic font Patient was seen at bedside, laying down comfortably Responding well to Lasix and metolazone Okay for discharge from cardiology standpoint GERI KESSLER Jun 15, 2022 08:12 AUDELIA BEARD MD Jun 15, 2022 08:45
[2022-06-15] MEDS ORDERED: METOLAZONE 2.5 MG (ZAROXOLYN) TAB PO SCH (08:30)
[2022-06-15] MEDS: MAGNESIUM OXIDE (MAG-OX)400 MG TAB PO SCH (08:38)
[2022-06-15] MEDS: APIXABAN 5 MG (ELIQUIS) TABLET PO SCH (08:38)
[2022-06-15] MEDS: THIAMINE 100 MG (VITAMIN B-1) TAB PO SCH (08:38)
[2022-06-15] MEDS: FOLIC ACID 1 MG TAB PO SCH (08:38)
[2022-06-15] MEDS: AMIODARONE 200 MG (CORDARONE) TAB PO SCH (08:39)
[2022-06-15] MEDS: DOCUSATE SODIUM 100 MG (COLACE) CAP PO SCH (08:39)
[2022-06-15] MEDS: FAMOTIDINE 20 MG (PEPCID) TABLET PO SCH (08:39)
[2022-06-15] MEDS: FUROSEMIDE 40 MG (LASIX) TAB PO SCH (08:39)
[2022-06-15] MEDS: SENNOSIDES 8.6 MG (SENOKOT) TAB PO SCH (08:39)
[2022-06-15] MEDS: LACTOBACILLUS ACIDOPHILUS (PROBIOTIC) CAPSULE PO SCH (08:39)
[2022-06-15] MEDS: NYSTATIN CREAM (MYCOSTATIN) 30 GM TUBE TP PRN (08:41)
[2022-06-15] MEDS: MICONAZOLE 2% POWDER (DESENEX AF) 90 GM TOP SCH (08:41)
[2022-06-15] MEDS: polyethylene glycoL POWDER 17 GM (MIRALAX) PACK PO SCH (08:43)
[2022-06-15] MEDS: MICONAZOLE NITRATE 2% CRM 30 GM TP SCH (09:00)
--- NOTE | 2022-06-15 10:57 | Therapy Team Discharge Summary ---
Therapy Discharge Summary Discharge Recommendations Date of Discharge Physical Therapy Patient came to rehab with debility. Upon evaluation patient performed rolling and supine <-> sit with independence, sit <-> stand and transfers SBA, car transfer SBA, ambulated 175' with a rolling walker with CGA/SBA (including 50' with at least 2 turns of 90 degrees and 10' over an uneven surface), and went up and down 4 steps using 2 handrails with CGA/SBA. Patient has been performing bed mobility and transfer training, balance and endurance training,functional strengthening, stair training, gait training, and education. 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 Now, patient performs rolling and supine <- > sit with independence, sit <-> stand and transfers independent, car transfer independent, ambulates 150' with a rolling walker with setup (but 50' with at least 2 turns with independence and 10' over an uneven surface with independence), can go up and down 8 steps using 2 handrails with SBA, and can pepper picker an object from the floor with setup. Patient is being discharged from this facility today and will be discharged from PT at this time. Roll Left to Right (QC): 6 Sit to Lying (QC): 6 Lying to Sitting/Side of Bed(Q: 6 Sit to Stand (QC): 6 Chair/Ray-mc-Hunry Xfer(QC): 6 Toilet Transfer (QC): 5 Car Transfer (QC): 6 Does the Patient Walk: Yes Mode of Locomotion: Walk Anticipated Mode of Locomotion: Walk Walk 10 feet (QC): 6 Walk 50 ft with 2 Turns(QC): 5 Walk 150 ft (QC): 5 Walking 10ft on uneven surface: 6 Distance: 175' x 4 Gait Assistive Device: FWW Does the Pt Use a Wheelchair: No Wheel 50 ft with 2 turns (QC): 9 Wheel 150 ft (QC): 9 Type of Wheelchair: N/A #of Steps: 12 1 Step (curb) (QC): 5 4 Steps (QC): 5 12 Steps (QC): 5 Balance Sitting Static: Normal Balance Sitting Dynamic: Normal Balance-Standing Static: Normal Picking up an Object (QC): 5 Occupational Therapy Decreased Activ Tolerance, Decreased UE Strength, Impaired I ADL's Eating (QC): 6 Oral Hygiene (QC): 6 Shower/Bathe Self (QC): 4 (SBA in shower with balance.) Upper Body Dressing (QC): 6 Lower Body Dressing (QC): 6 On/Off Footwear (QC): 6 Toileting Hygiene (QC): 6 PT Fpc Goals Hospital Administrative Assistant Goals PT Hospital Administrative Assistant Goals Time Frame: Jun 24, 2022 Transfers (B,C,W/C) (FIM): 6 Scoring Section J - Health Conditions 1. Rarely or not at all 2. Occasionally 3. Frequently 4. Almost constantly 8. Unable to answer Pain Effect on Sleep: 1 Pain Interference with Therapy: 1 Pain Interference w/Day-to-Day: 1 Roll Left to Right (QC): 6 Sit to Lying (QC): 6 Lying-Sitting on Side/Bed(QC): 6 Sit to Stand (QC): 6 Chair/Hmg-en-Oatkv Xfer(QC): 6 Car Transfer (QC): 6 Does the Patient Walk: Yes Walk 10 feet (QC): 6 Walk 10ft-Uneven Surface(QC): 6 Walk 50ft with 2 Turns (QC): 6 Walk 150 ft (QC): 6 Gait Level of Assist: 6 Gait Assistive Device: FWW Does the Pt use WC or Scooter?: No Wheel 50 feet with 2 turns (QC: 9 # of Steps: 12 1 Step (curb) (QC): 4 4 Steps (QC): 4 12 Steps (QC): 4 Stairs Level Of Assist: 4 Picking up an Object (QC): 6 OT Hospital Administrative Assistant Goals Hospital Administrative Assistant Goals Time Frame: Jun 30, 2022 Acute change in mental status: 0 Inattention: 0 Disorganized thinkin Altered level of consciousness: 0 Eating (QC): 6 (met) Oral Hygiene (QC): 6 (met) Toileting Hygiene (QC): 6 (not met) Shower/Bathe Self (QC): 6 (not met: SBA) Upper Body Dressing (QC): 6 (met) Lower Body Dressing (QC): 6 (met) On/Off Footwear (QC): 6 (met) Additional Goals: 1-Demonstrate ADL Tasks, 2-Verbalize Understanding, 3-ImproveStrength/Niya 1=Demonstrate adherence to instructed precautions during ADL tasks. 2=Patient will verbalize/demonstrate understanding of assistive devices/modifications for ADL. 3=Patient will improve strength/tolerance for activity to enable patient to perform ADL's. EKATERINA ESTEVEZ PT Jun 15, 2022 10:57
--- NOTE | 2022-06-15 11:35 | Therapy Team Discharge Summary ---
Therapy Discharge Summary Discharge Recommendations Date of Discharge Therapy D/C Recommendations: Home w/ Family Support, Occupational Therapy Home Care, Homemaker Support Physical Therapy Roll Left to Right (QC): 6 Sit to Lying (QC): 6 Lying to Sitting/Side of Bed(Q: 6 Sit to Stand (QC): 6 Chair/Mjw-nh-Wxefc Xfer(QC): 6 Toilet Transfer (QC): 5 Car Transfer (QC): 6 Does the Patient Walk: Yes Mode of Locomotion: Walk Anticipated Mode of Locomotion: Walk Walk 10 feet (QC): 6 Walk 50 ft with 2 Turns(QC): 5 Walk 150 ft (QC): 5 Walking 10ft on uneven surface: 6 Distance: 175' x 4 Gait Assistive Device: FWW Does the Pt Use a Wheelchair: No Wheel 50 ft with 2 turns (QC): 9 Wheel 150 ft (QC): 9 Type of Wheelchair: N/A #of Steps: 12 1 Step (curb) (QC): 5 4 Steps (QC): 5 12 Steps (QC): 5 Balance Sitting Static: Normal Balance Sitting Dynamic: Normal Balance-Standing Static: Normal Picking up an Object (QC): 5 Occupational Therapy Pt came to [facility] for debility. At [facility], pt was max assist with lower body dressing, mod assist for footwear, min assist for toileting hygiene, and showering, set up assist for upper body dressing, and independent for eating and oral hygiene. During his time on the rehab floor, we worked on endurance, UE strength, balance, coordination, ADLs, and mock work tasks. Pt tolerated treatments well and met most of his [facility] goals. He is now independent with all ADL tasks except showering which is SBA. All but the showering goal has been met. He is being d/c from the ARU today and will be returning home with and daughter. OT will discharge at this time. Decreased Activ Tolerance, Decreased UE Strength, Impaired I ADL's Eating (QC): 6 Oral Hygiene (QC): 6 Shower/Bathe Self (QC): 4 (SBA in shower with balance.) Upper Body Dressing (QC): 6 Lower Body Dressing (QC): 6 On/Off Footwear (QC): 6 Toileting Hygiene (QC): 6 PT Half-Way Goals Information Technology Auditor Goals PT Half-Way Goals Time Frame: Jun 24, 2022 Transfers (B,C,W/C) (FIM): 6 Scoring Section J - Health Conditions 1. Rarely or not at all 2. Occasionally 3. Frequently 4. Almost constantly 8. Unable to answer Pain Effect on Sleep: 1 Pain Interference with Therapy: 1 Pain Interference w/Day-to-Day: 1 Roll Left to Right (QC): 6 Sit to Lying (QC): 6 Lying-Sitting on Side/Bed(QC): 6 Sit to Stand (QC): 6 Chair/Oeb-gj-Itfwn Xfer(QC): 6 Car Transfer (QC): 6 Does the Patient Walk: Yes Walk 10 feet (QC): 6 Walk 10ft-Uneven Surface(QC): 6 Walk 50ft with 2 Turns (QC): 6 Walk 150 ft (QC): 6 Gait Level of Assist: 6 Gait Assistive Device: FWW Does the Pt use WC or Scooter?: No Wheel 50 feet with 2 turns (QC: 9 # of Steps: 12 1 Step (curb) (QC): 4 4 Steps (QC): 4 12 Steps (QC): 4 Stairs Level Of Assist: 4 Picking up an Object (QC): 6 OT Information Technology Auditor Goals Information Technology Auditor Goals Time Frame: Jun 30, 2022 Acute change in mental status: 0 Inattention: 0 Disorganized thinkin Altered level of consciousness: 0 Eating (QC): 6 (met) Oral Hygiene (QC): 6 (met) Toileting Hygiene (QC): 6 (not met) Shower/Bathe Self (QC): 6 (not met: SBA) Upper Body Dressing (QC): 6 (met) Lower Body Dressing (QC): 6 (met) On/Off Footwear (QC): 6 (met) Additional Goals: 1-Demonstrate ADL Tasks, 2-Verbalize Understanding, 3-ImproveStrength/Niya 1=Demonstrate adherence to instructed precautions during ADL tasks. 2=Patient will verbalize/demonstrate understanding of assistive devices/modifications for ADL. 3=Patient will improve strength/tolerance for activity to enable patient to perf orm ADL's. Rochelle Wesley OT Jun 15, 2022 11:35
[2022-06-20] MEDS ORDERED: AMIODARONE 200 MG (CORDARONE) TAB PO SCH (09:00)
== END 2022-06-15 13:30 | disposition home health service (06) | DRG 91 ==
PROVIDERS: ADMIT Internal Medicine; ATTEND Internal Medicine
DX: G72.81 Critical illness myopathy (principal); I50.23 Acute on chronic systolic (congestive) heart failure; I48.19 Other persistent atrial fibrillation; I13.0 Hypertensive heart and chronic kidney disease with heart failure and stage 1 through stage 4 chronic kidney disease, or unspecified chronic kidney disease; I42.8 Other cardiomyopathies; I27.20 Pulmonary hypertension, unspecified; I34.0 Nonrheumatic mitral (valve) insufficiency; Z66 Do not resuscitate; E78.00 Pure hypercholesterolemia, unspecified; I48.0 Paroxysmal atrial fibrillation; N18.30 Chronic kidney disease, stage 3 unspecified; E87.6 Hypokalemia; R60.1 Generalized edema; R21 Rash and other nonspecific skin eruption; Z86.16 Personal history of COVID-19; Z79.01 Long term (current) use of anticoagulants; Z79.899 Other long term (current) drug therapy; Z86.73 Personal history of transient ischemic attack (TIA), and cerebral infarction without residual deficits; Z87.01 Personal history of pneumonia (recurrent); Z28.310 Unvaccinated for COVID-19
CPT/HCPCS: 36415; 71045; 80048; 80053; 83735; 84145; 85025; 93005

== ENCOUNTER 2022-08-12 09:47 | Emergency (ER) | payer BC ==
[~2022-08-12] VITALS: Ht 170 cm; Wt 93.0 kg
[~2022-08-12 09:47] MED LIST changes: +ACET-2840 PO; +ALBU8.5H6 IH; +CARV3.122 PO; +DOCU100C37 PO; +FAMO20TA5 PO; +FLUC100T10 PO; +FOLI1TAB33 PO; +LACT1CAP76 PO; +METO2.5T PO; +MGX400T PO; +NYST15CR35 TP; +POLY17PO6 PO; +RIVA20TA PO; -RT-ALBUINH IH; +SENN-234 PO; +THIA100T80 PO
--- NOTE | 2022-08-12 10:15 | ED Fall/Injury ---
General Stated Complaint: FALL/LEFT EYEBROW LAC Source: patient Exam Limitations: no limitations History of Present Illness Date Seen by Provider: Aug 12, 2022 Time Seen by Provider: 10:00 Initial Comments 67-year-old male presents [facility] today for laceration of his left eyebrow and below his left eye after he fell going up some stairs at [facility] here in [facility]. He is on Eliquis for atrial fibrillation. He states his tetanus shot is up-to-date within the last year. Denies any loss of consciousness. Has pain only at the laceration to his left upper brow region. No neck pain chest pain abdominal pain. No pain in his upper or lower extremities bilaterally. Allergies and Home Medications Allergies Coded Allergies: No Known Drug Allergies (Unverified , 06/04/20) Patient Home Medication List Home Medication List Reviewed: Yes Amiodarone HCl (Amiodarone HCl) 200 Mg Tablet, 200 MG PO BID Prescribed by: GISELLA KENNEDY on 06/15/22544 Carvedilol (Carvedilol) 3.125 Mg Tablet, 3.125 MG PO BID Prescribed by: GISELLA KENNEDY on 06/15/22544 Famotidine (Famotidine) 20 Mg Tablet, 20 MG PO BID Prescribed by: GISELLA KENNEDY on 06/15/22544 Folic Acid (Folic Acid) 1 Mg Tablet, 1 MG PO DAILY Prescribed by: GISELLA KENNEDY on 06/15/22544 Furosemide (Furosemide) 40 Mg Tablet, 40 MG PO DAILY Prescribed by: GISELLA KENNEDY on 06/15/22544 Magnesium Oxide (Magnesium Oxide) 400 Mg (241.3 Mg Magnesium) Tablet, 400 MG PO BID Prescribed by: GISELLA KENNEDY on 06/15/22544 Metolazone (Metolazone) 2.5 Mg Tablet, 2.5 MG PO MoTh@0830 Prescribed by: GISELLA KENNEDY on 06/15/22544 Rivaroxaban (Xarelto) 20 Mg Tablet, 20 MG PO 1700 Prescribed by: GISELLA KENNEDY on 06/15/22544 Thiamine HCl (Vitamin B-1) 100 Mg Tablet, 100 MG PO DAILY Prescribed by: GISELLA KENNEDY on 06/15/22544 Review of Systems Review of Systems Constitutional: no symptoms reported Eyes: No Symptoms Reported Ears, Nose, Mouth, Throat: no symptoms reported Respiratory: no symptoms reported Cardiovascular: no symptoms reported Gastrointestinal: no symptoms reported Genitourinary: no symptoms reported Musculoskeletal: no symptoms reported Skin: other (Laceration above left eye, below left eye) Psychiatric/Neurological: No Symptoms Reported Past Popjbpv-Lncsbe-Dykgrf Hx Patient Social History Tobacco Use?: No Use of E-Cig and/or Vaping dev: No Substance use?: No Alcohol Use?: No Immunizations Up To Date Tetanus Booster (TDap): Unknown First/Initial COVID19 Vaccinat: none Second COVID19 Vaccination Naldo: none Third COVID19 Vaccination Date: none Seasonal Allergies Seasonal Allergies: No Past Medical History Surgery/Hospitalization HX: discharged 04/07 from admission for COVID afib., CARDIAC CATH 1 YEAR AGO, RLE CELLULITIS, CKD STAGE 3, PNEUMONIA, CARDIOVERSION Surgeries: Yes (Cardioversion) Respiratory: Yes Pneumonia Cardiac: Yes Atrial Fibrillation, Chronic Edema/Swelling, High Cholesterol, Hypertension Neurological: Yes Stroke, TIA Genitourinary: No Gastrointestinal: No Musculoskeletal: No Endocrine: No HEENT: No Cancer: No Psychosocial: No Integumentary: No Blood Disorders: No Family Medical History Reviewed Nursing Family Hx No Pertinent Family Hx, Other Conditions/Hx Physical Exam Vital Signs Vital Signs - First Documented 08/12/22 09:59 Temp 36.8 Pulse 74 Resp 20 B/P (MAP) 92/73 (79) Pulse Ox 96 O2 Delivery Room Air Capillary Refill : Height, Weight, BMI Height: '" Weight: lbs. oz. 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 There is a small superficial abrasion to the left infraorbital region from his glasses. This is less than 1 cm.) Lymphatic: no adenopathy Procedures/Interventions Wound Location: Face Other Wound Location L eyebrow region Wound's Depth, Shape: linear, sub Q Wound Explored: clean Irrigated w/ Saline (ccs): 200 Anesthesia: 1% Lidocaine Suture: Prolene, Vicryl Suture Size: 5-0 Number of Sutures: 5 Layer Closure?: 2 Number Deep Layer Sutures: 2 Sterile Dressing Applied?: Yes Progress/Results/Core Measures Results/Orders My Orders Orders - JULIA RAMSAY DO Ct Head Wo (08/12/22 10:11) Lidocaine 1% Inj 20 Ml (Xylocaine 1% Inj (08/12/22 11:00) Vital Signs/I&O 08/12/22 09:59 Temp 36.8 Pulse 74 Resp 20 B/P (MAP) 92/73 (79) Pulse Ox 96 O2 Delivery Room Air Departure Communication (Admissions) Patient is hemodynamically stable. CT scan obtained due to him being on blood thinners with significant head injury. He has no focal neurodeficits. CT is negative. Laceration repaired with sutures. Given wound care instructions and discharged in stable condition. Impression Primary Impression: Facial laceration Qualified Codes: S01.81XA - Laceration without foreign body of other part of head, initial encounter Disposition: 01 HOME, SELF-CARE Condition: Stable Departure-Patient Inst. Referrals: GISELLA KENNEDY DO (PCP/Family) Primary Care Physician Patient Instructions: Laceration Repair With Stitches (DC) Add. Discharge Instructions: Have the stitches removed in 5 to 7 days. Do not submerge the wound in water. Increase your fluids and rest. Shower as normal. JULIA RAMSAY DO Aug 12, 2022 10:15
--- NOTE | 2022-08-12 10:50 | Diagnostic Imaging Report ---
EXAMINATION: CT of the brain without contrast, 08/12/2022. TECHNIQUE: Multiple contiguous axial images were obtained through the brain without the use of intravenous contrast. Auto Exposure Controls were utilized during the CT exam to meet ALARA standards for radiation dose reduction. INDICATION: Fall, with gash over the left eyebrow. COMPARISON: 06/04/2020. FINDINGS: There is no hemorrhage or infarct. No mass, mass effect, or midline shift. No hydrocephalus. Paranasal sinuses and mastoid air cells are clear. IMPRESSION: 1. No acute intracranial process. Dictated by: Dictated on workstation # [id number]
[2022-08-12] MEDS ORDERED: LIDOCAINE 1% INJ 20 ML VIAL INJ ONE (11:00)
[2022-08-12 12:10] VITALS: BP 96/62
== END 2022-08-12 12:10 | disposition home or self-care (01) ==
LOC: EDUNIT# 09:47 → ER 09:49
DX: S01.81XA Laceration without foreign body of other part of head, initial encounter (principal); I48.91 Unspecified atrial fibrillation; Z86.16 Personal history of COVID-19; Z79.01 Long term (current) use of anticoagulants; W10.9XXA Fall (on) (from) unspecified stairs and steps, initial encounter
CPT/HCPCS: 12013; 70450

== ENCOUNTER → 2023-01-04 | Outpatient (CLI) | payer BC | LOC: CARD 12:33 | PROVIDERS: ATTEND Physician Assistant | DX: I10 Essential (primary) hypertension (principal) | CPT/HCPCS: 93306 ==

== ENCOUNTER → 2023-01-31 | Outpatient (CLI) | payer BC ==
[~2023-01-31] VITALS: Ht 170 cm; Wt 86.0 kg
[~2023-01-31] MED LIST changes: +CATHETER FLUSH 10 ML SYR IVP PRN; +REGADENOSON 0.4 MG/5 ML SYR (LEXISCAN) IV ONE
[2023-01-31 09:16] VITALS: BP 99/69
[2023-01-31 09:19] VITALS: BP 103/66
[2023-01-31 09:21] VITALS: BP 86/64
[2023-01-31 09:23] VITALS: BP 121/64
[2023-01-31 09:25] VITALS: BP 98/62
--- NOTE | 2023-01-31 12:01 | Cardiology Stress Test Report ---
Stress Test Report Date of Procedure/Referring: Date of Procedure: January 31, 2023 PCP Ally Reynolds DO Admitting Physician Admitting Physician: Attending Physician: Geri Chan Baseline Heart Rate: 69 Baseline Blood Pressure: Blood Pressure Systolic: 98 Blood Pressure Diastolic: 62 Baseline Vitals Vital Signs Date Time Temp Pulse Resp B/P (MAP) Pulse Ox O2 Delivery O2 Flow Rate FiO2 01/31/23 09:16 67 99/69 (79) Room Air Baseline EKG: Baseline EKG: NSR Summary After explaining the procedure to the patient, he signed a consent and then brought to the stress nuclear laboratory. Patient received 0.4 mg Lexiscan for stress test, ECG, heart rate and blood pressure were monitored continuously. Resting and stress dose of radio tracer were injected, imaging was acquired and reviewed in short axis, horizontal long axis and vertical long axis views. TID: 1.03 SSS: 1 SDS: 1 EF: 38 Patient tolerated Lexiscan well Patchy uptake with no significant ischemia or infarction on SPECT images Dilated left ventricle with diffuse left ventricular hypokinesia, more pronounced at the anterior wall, ejection fraction 38% Copy Copies To 1: ALLY REYNOLDS BASHAR J MD January 31, 2023 12:01
== END ==
LOC: CARD 07:43
PROVIDERS: ATTEND Physician Assistant
DX: I10 Essential (primary) hypertension (principal)
CPT/HCPCS: 78452; 93017; A9502